=== PATIENT | male | born 1930 | race Caucasian/White ===

== ENCOUNTER 2018-03-05 05:32 | Inpatient (IN) | payer MEDICARE, OTHER ==
[2018-03-05] VITALS (8 sets, daily range): BP systolic 124–166; BP diastolic 76–92
[~2018-03-05] VITALS: Ht 180.3 cm; Wt 110.2 kg
--- NOTE | 2018-03-05 05:59 | Emergency Room Report ---
History of Present Illness General Chief Complaint: Multiple Trauma/Fall Source: Patient Present Illness HPI Patient present from assisted facility with complaints of left-sided hip pain Patient reports that he was ambulating to go to the restroom And fell to the left side Pain is 8 out of 10 localized to the left hip Denies any lapse of consciousness denies any dizziness Denies any chest pain or shortness of breath Patient has weakness to the left leg with increased pain at this time Allergies: Coded Allergies: MORPHINE (Verified Allergy, Unknown, 03/05/18) Uncoded Allergies: PENICILLIN (Allergy, Unknown, 03/05/18) Patient History Past Medical History: see triage record Pertinent Family History: none Reviewed Nursing Documentation: PMH: Agreed; PSxH: Agreed Nursing Documentation-PMH Hx Hypertension: Yes - hyperlipidemia Hx COPD: Yes History Of Psychiatric Problem: Yes - dementia, depression Review of Systems All Other Systems: negative except mentioned in HPI Physical Exam Vital Signs Date Time Temp Pulse Resp B/P (MAP) Pulse Ox O2 Delivery O2 Flow Rate FiO2 03/05/18 05:41 97.5 87 20 153/80 95 Room Air Sp02 EP Interpretation: reviewed, normal General Appearance: mild distress - In pain Head: normocephalic, atraumatic Eyes: bilateral eye PERRL, bilateral eye EOMI ENT: hearing grossly normal, normal pharynx Neck: supple, thyroid normal Respiratory: no retraction, no accessory muscle use, crackles - Both lower lobes Cardiovascular #1: regular rate, rhythm Gastrointestinal: non tender, soft Musculoskeletal: other - Left leg appears short externally rotated, hemodynamically otherwise stable and neurovascularly intact Neurologic: alert, oriented x3, responsive Skin: no rash, warm/dry Medical Decision Making ER Course Patient is complex requiring extensive blood work and imaging Patient is provided pain medication and Case is signed out to my covering physician Last Vital Signs Date Time Temp Pulse Resp B/P (MAP) Pulse Ox O2 Delivery O2 Flow Rate FiO2 03/05/18 05:41 97.5 87 20 153/80 95 Room Air Signed Out To: Oncoming physician 6:20 Scripts Unable to Obtain Active Prescriptions or Reported Meds Pepito Graham DO Mar 05, 2018 05:59
[2018-03-05] MEDS ORDERED: Hydromorphone 0.5mg/0.5ml inj IVP ONE ×2 (06:00→07:30)
[2018-03-05 06:33] LABS: EOSINOPHILS % (AUTO) 1.8 % (0.0-3.0); HEMATOCRIT 43.8 % (42.0-52.0); HEMOGLOBIN 14.4 G/DL (14.2-18.0); LYMPHOCYTES % (AUTO) 21.1 % (20.0-45.0); MEAN CORPUSCULAR VOLUME 89 FL (80-99); MONOCYTES % (AUTO) 9.1 % (1.0-10.0); PLATELET COUNT 203 K/UL (150-450); RED BLOOD COUNT 4.93 M/UL (4.70-6.10); WHITE BLOOD COUNT 9.9 K/UL (4.8-10.8)
[2018-03-05 06:56] LABS: ANION GAP 10 mmol/L (5-15); BLOOD UREA NITROGEN 25 mg/dL (7-18); CARBON DIOXIDE 28 MMOL/L (21-32); CHLORIDE 102 MMOL/L (98-107); CREATININE 1.9 MG/DL (0.55-1.30); POTASSIUM 4.2 MMOL/L (3.5-5.1); SODIUM 140 MMOL/L (136-145)
[2018-03-05 07:12] LABS: ALANINE AMINOTRANSFERASE 13 U/L (12-78); ALBUMIN 3.4 G/DL (3.4-5.0); ALBUMIN/GLOBULIN RATIO 0.7 (1.0-2.7); ALKALINE PHOSPHATASE 144 U/L (46-116); ASPARTATE AMINO TRANSFERASE 19 U/L (15-37); BILIRUBIN,TOTAL 0.5 MG/DL (0.2-1.0); CREATINE KINASE 70 U/L (26-308)
[2018-03-05] MEDS ORDERED: DiphenhydrAMINE 50mg/ml Inj IVP ONE (08:15)
[2018-03-05 08:22] LABS: APPEARANCE,URINE CLEAR; BILIRUBIN, URINE NEGATIVE (NEGATIVE); COLOR,URINE PALE YELLOW; GLUCOSE, URINE (UA) NEGATIVE (NEGATIVE); KETONES,URINE NEGATIVE (NEGATIVE); LEUKOCYTE ESTERASE ,URINE NEGATIVE (NEGATIVE); NITRITE,URINE NEGATIVE (NEGATIVE); PH,URINE 6.5 (4.5-8.0); PROTEIN,URINE 3+ (NEGATIVE); UROBILINOGEN,URINE NORMAL MG/DL (0.0-1.0)
--- NOTE | 2018-03-05 10:04 | Diagnostic Imaging Report ---
Indication: Trauma, hip pain Technique: Noncontrast spiral acquisitions obtained through the pelvis. Multiplanar reconstructions generated. Total dose length product 597.88 mGycm. CTDIvol(s) 16.19 mGy. Dose reduction achieved using automated exposure control Comparison: none Findings: There is an angulated comminuted intertrochanteric fracture of the left hip. No pelvic fracture. No evidence of right hip fracture. There are degenerative changes of the lumbar spine. There is minimal soft tissue contusion superficial to the hip fracture, incompletely included in the [id number]. The included pelvic viscera are unremarkable. The appendix is not visualized. Impression: Positive for comminuted angulated left hip intertrochanteric fracture Other findings as noted This agrees with the preliminary interpretation provided overnight by [facility] teleradiology service. The CT scanner at [facility] is accredited by the [employer] and the scans are performed using protocols designed to limit radiation exposure to as low as reasonably achievable to attain images of sufficient resolution adequate for diagnostic evaluation.
[2018-03-05] MEDS ORDERED: QUETIAPINE FUM300 MG ORAL (10:08)
[2018-03-05] MEDS ORDERED: IBUPROFEN600 MG ORAL (10:08)
[2018-03-05] MEDS ORDERED: FUROSEMIDE20 M1 ORAL (10:08)
[2018-03-05] MEDS ORDERED: CLONIDINE0.1 MG PO (10:08)
[2018-03-05] MEDS ORDERED: TRAMADOL HCL100 M2 ORAL (10:08)
[2018-03-05] MEDS ORDERED: LIPITOR80 MG ORAL (10:08)
[2018-03-05] MEDS ORDERED: POTASSIUM CHLO10 ME2 PO (10:08)
[2018-03-05] MEDS ORDERED: THERA M PLUS T1 EAC2 PO (10:08)
[2018-03-05] MEDS ORDERED: NORVASC10 MG ORAL (10:08)
[2018-03-05] MEDS ORDERED: DONEPEZIL HCL10 M2 ORAL (10:10)
[2018-03-05] MEDS ORDERED: SINEMET 25-1001 EAC1 ORAL (10:10)
[2018-03-05] MEDS ORDERED: GABAPENTIN100 MG ORAL (10:10)
--- NOTE | 2018-03-05 10:54 | Diagnostic Imaging Report ---
Indication: Trauma, pain Technique: One view of the pelvis Comparison: CT scan performed 2 hours earlier Findings: There is a comminuted angulated intertrochanteric fracture of the left hip. No pelvic fracture demonstrated. Bones are osteoporotic. There are vascular calcification Impression: Positive for left hip intertrochanteric fracture This agrees with the preliminary interpretation provided by the emergency room physician
--- NOTE | 2018-03-05 11:15 | Diagnostic Imaging Report ---
Indication: Chest pain Technique: One view of the chest Comparison: None Findings: Body habitus limits evaluation. The heart is enlarged. The aorta is tortuous ectatic and calcified. No definite acute infiltrates, effusions, or congestion. There is mild central bronchial wall thickening Impression: Senescent changes. No definite acute process This agrees with the preliminary interpretation provided by the emergency room physician
[2018-03-05] MEDS ORDERED: traMADol 50mg tab ORAL PRN (13:00)
[2018-03-05] MEDS: Levodopa/Carbidopa 25/100 tab ORAL SCH ×2 (13:14→17:37)
[2018-03-05] MEDS: Norco 5mg/325mg tab ORAL PRN ×2 (13:16→19:48)
--- NOTE | 2018-03-05 15:01 | Cardiology Report ---
APPROVED REPORT EKG Measurement Heart [id number] Normal sinus rhythm Nonspecific ST abnormality Abnormal ECG
--- NOTE | 2018-03-05 15:43 | Anethesia Preoperative Eval ---
Anesthesia Pre-op PMH/ROS General Date of Evaluation: Mar 05, 2018 Time of Evaluation: 15:39 Anesthesiologist: Ann-Marie ASA Score: ASA 3 Mallampati Score Class I : Soft palate, uvula, fauces, pillars visible Class II: Soft palate, uvula, fauces visible Class III: Soft palate, base of uvula visible Class IV: Only hard plate visible Mallampati Classification: Class III Surgeon: Nilay Diagnosis: L hip Fx Surgical Procedure: ORIF of L hip Fx Anesthesia History: none Family History: no anesthesia problems Allergies: Coded Allergies: PENICILLINS (Unverified Allergy, Unknown, 03/05/18) Medications: see eMAR Patient NPO?: Yes NPO Date: Mar 05, 2018 NPO Time: 02:40 Past Medical History Cardiovascular: Reports: HTN; Denies: CAD, [place], valve dz, arrhythmia, other Pulmonary: Denies: asthma, COPD, MONICA, other Gastrointestinal/Genitourinary: Reports: GERD, CRI; Denies: ESRD, other Neurologic/Psychiatric: Reports: dementia - mild, other - Parkinsons; Denies: CVA, depression/anxiety, TIA Endocrine: Denies: DM, hypothyroidism, steroids, other HEENT: Denies: cataract (L), cataract (R), glaucoma, TETLIN (L), TETLIN (R), other Hematology/Immune: Denies: anemia, DVT, bleeding disorder, other Musculoskeletal/Integumentary: Reports: OA; Denies: RA, DJD, DDD, edema, other Other: obesity PMH Narrative: as above PSxH Narrative: see H&P Anesthesia Pre-op Phys. Exam Physician Exam Last Vital Signs Date Time Temp Pulse Resp B/P (MAP) Pulse Ox O2 Delivery O2 Flow Rate FiO2 03/05/18 12:02 Nasal Cannula 2.0 03/05/18 12:00 97.4 91 18 126/86 (99) 91 Constitutional: NAD Neurologic: other - unable to obtaine Cardiovascular: RRR, no M/R/G Respiratory: CTA Gastrointestinal: other - obesity Airway Exam Mallampati Score: Class III MO: limited Neck: stiff ROM: limited Teeth: missing Dentures: no upper, no lower Anesthesia Pre-op A/P Labs Hematology Test 03/05/18 06:15 White Blood Count 9.9 K/UL (4.8-10.8) Red Blood Count 4.93 M/UL (4.70-6.10) Hemoglobin 14.4 G/DL (14.2-18.0) Hematocrit 43.8 % (42.0-52.0) Mean Corpuscular Volume 89 FL (80-99) Mean Corpuscular Hemoglobin 29.2 PG (27.0-31.0) Mean Corpuscular Hemoglobin Concent 33.0 G/DL (32.0-36.0) Red Cell Distribution Width 13.0 % (11.6-14.8) Platelet Count 203 K/UL (150-450) Mean Platelet Volume 7.0 FL (6.5-10.1) Neutrophils (%) (Auto) 67.0 % (45.0-75.0) Lymphocytes (%) (Auto) 21.1 % (20.0-45.0) Monocytes (%) (Auto) 9.1 % (1.0-10.0) Eosinophils (%) (Auto) 1.8 % (0.0-3.0) Basophils (%) (Auto) 1.0 % (0.0-2.0) Coagulation Test 03/05/18 06:15 Prothrombin Time 10.2 SEC (9.30-11.50) Prothromb Time International Ratio 1.0 (0.9-1.1) Activated Partial Thromboplast Time 27 SEC (23-33) Chemistry Test 03/05/18 06:15 Sodium Level 140 MMOL/L (136-145) Potassium Level 4.2 MMOL/L (3.5-5.1) Chloride Level 102 MMOL/L (98-107) Carbon Dioxide Level 28 MMOL/L (21-32) Anion Gap 10 mmol/L (5-15) Blood Urea Nitrogen 25 mg/dL (7-18) H Creatinine 1.9 MG/DL (0.55-1.30) H Estimat Glomerular Filtration Rate mL/min (>60) Glucose Level 146 MG/DL (74-106) H Calcium Level 9.0 MG/DL (8.5-10.1) Total Bilirubin 0.5 MG/DL (0.2-1.0) Aspartate Amino Transf (AST/SGOT) 19 U/L (15-37) Alanine Aminotransferase (ALT/SGPT) 13 U/L (12-78) Alkaline Phosphatase 144 U/L (46-116) H Total Creatine Kinase 70 U/L (26-308) Creatine Kinase MB 1.0 NG/ML (0.0-3.6) Creatine Kinase MB Relative Index 1.4 Troponin I 0.000 ng/mL (0.000-0.056) Total Protein 8.3 G/DL (6.4-8.2) H Albumin 3.4 G/DL (3.4-5.0) Globulin 4.9 g/dL Albumin/Globulin Ratio 0.7 (1.0-2.7) L Risk Assessment & Plan Assessment: ASA 3 Plan: GA vs SAB Pre-Antibiotics Drug: as scheduled Luiz Jacobsen MD Mar 05, 2018 15:43
--- NOTE | 2018-03-05 16:44 | Cardiac Electrophysiology PN ---
Subjective Subjective [id number] Objective Last 24 Hour Vital Signs Date Time Temp Pulse Resp B/P (MAP) Pulse Ox O2 Delivery O2 Flow Rate FiO2 03/05/18 15:48 97.2 85 20 158/90 (112) 94 03/05/18 12:02 Nasal Cannula 2.0 03/05/18 12:00 97.4 91 18 126/86 (99) 91 03/05/18 10:38 97.4 91 18 126/86 (99) 91 03/05/18 10:22 68 16 124/76 97 Nasal Cannula 2.0 03/05/18 10:22 97.5 87 13 124/65 97 Nasal Cannula 2.0 03/05/18 07:15 78 13 149/83 95 Room Air 03/05/18 05:56 86 20 Room Air 03/05/18 05:41 97.5 87 20 153/80 95 Room Air Laboratory Tests Test 03/05/18 06:15 03/05/18 07:00 White Blood Count 9.9 K/UL (4.8-10.8) Red Blood Count 4.93 M/UL (4.70-6.10) Hemoglobin 14.4 G/DL (14.2-18.0) Hematocrit 43.8 % (42.0-52.0) Mean Corpuscular Volume 89 FL (80-99) Mean Corpuscular Hemoglobin 29.2 PG (27.0-31.0) Mean Corpuscular Hemoglobin Concent 33.0 G/DL (32.0-36.0) Red Cell Distribution Width 13.0 % (11.6-14.8) Platelet Count 203 K/UL (150-450) Mean Platelet Volume 7.0 FL (6.5-10.1) Neutrophils (%) (Auto) 67.0 % (45.0-75.0) Lymphocytes (%) (Auto) 21.1 % (20.0-45.0) Monocytes (%) (Auto) 9.1 % (1.0-10.0) Eosinophils (%) (Auto) 1.8 % (0.0-3.0) Basophils (%) (Auto) 1.0 % (0.0-2.0) Prothrombin Time 10.2 SEC (9.30-11.50) Prothromb Time International Ratio 1.0 (0.9-1.1) Activated Partial Thromboplast Time 27 SEC (23-33) Sodium Level 140 MMOL/L (136-145) Potassium Level 4.2 MMOL/L (3.5-5.1) Chloride Level 102 MMOL/L (98-107) Carbon Dioxide Level 28 MMOL/L (21-32) Anion Gap 10 mmol/L (5-15) Blood Urea Nitrogen 25 mg/dL (7-18) H Creatinine 1.9 MG/DL (0.55-1.30) H Estimat Glomerular Filtration Rate mL/min (>60) Glucose Level 146 MG/DL (74-106) H Calcium Level 9.0 MG/DL (8.5-10.1) Total Bilirubin 0.5 MG/DL (0.2-1.0) Aspartate Amino Transf (AST/SGOT) 19 U/L (15-37) Alanine Aminotransferase (ALT/SGPT) 13 U/L (12-78) Alkaline Phosphatase 144 U/L (46-116) H Total Creatine Kinase 70 U/L (26-308) Creatine Kinase MB 1.0 NG/ML (0.0-3.6) Creatine Kinase MB Relative Index 1.4 Troponin I 0.000 ng/mL (0.000-0.056) Total Protein 8.3 G/DL (6.4-8.2) H Albumin 3.4 G/DL (3.4-5.0) Globulin 4.9 g/dL Albumin/Globulin Ratio 0.7 (1.0-2.7) L Urine Color Pale yellow Urine Appearance Clear Urine pH 6.5 (4.5-8.0) Urine Specific [place] 1.010 (1.005-1.035) Urine Protein 3+ (NEGATIVE) H Urine Glucose (UA) Negative (NEGATIVE) Urine Ketones Negative (NEGATIVE) Urine Blood Negative (NEGATIVE) Urine Nitrite Negative (NEGATIVE) Urine Bilirubin Negative (NEGATIVE) Urine Urobilinogen Normal MG/DL (0.0-1.0) Urine Leukocyte Esterase Negative (NEGATIVE) Urine RBC 0 /HPF (0 - 0) Urine WBC 0-2 /HPF (0 - 0) Urine Squamous Epithelial Cells Occasional /LPF Urine Bacteria Occasional /HPF (NONE) Gary Bay MD Mar 05, 2018 16:43
--- NOTE | 2018-03-05 17:02 | General Progress Note ---
Subjective Date patient seen: Mar 05, 2018 Time patient seen: 16:00 Allergies: Coded Allergies: PENICILLINS (Unverified Allergy, Unknown, 03/05/18) Subjective Full H&P dictated. Objective Last 24 Hour Vital Signs Date Time Temp Pulse Resp B/P (MAP) Pulse Ox O2 Delivery O2 Flow Rate FiO2 03/05/18 15:48 97.2 85 20 158/90 (112) 94 03/05/18 12:02 Nasal Cannula 2.0 03/05/18 12:00 97.4 91 18 126/86 (99) 91 03/05/18 10:38 97.4 91 18 126/86 (99) 91 03/05/18 10:22 68 16 124/76 97 Nasal Cannula 2.0 03/05/18 10:22 97.5 87 13 124/65 97 Nasal Cannula 2.0 03/05/18 07:15 78 13 149/83 95 Room Air 03/05/18 05:56 86 20 Room Air 03/05/18 05:41 97.5 87 20 153/80 95 Room Air Laboratory Tests 03/05/18 06:15: White Blood Count 9.9, Red Blood Count 4.93, Hemoglobin 14.4, Hematocrit 43.8, Mean Corpuscular Volume 89, Mean Corpuscular Hemoglobin 29.2, Mean Corpuscular Hemoglobin Concent 33.0, Red Cell Distribution Width 13.0, Platelet Count 203, Mean Platelet Volume 7.0, Neutrophils (%) (Auto) 67.0, Lymphocytes (%) (Auto) 21.1, Monocytes (%) (Auto) 9.1, Eosinophils (%) (Auto) 1.8, Basophils (%) (Auto ) 1.0, Prothrombin Time 10.2, Prothromb Time International Ratio 1.0, Activated Partial Thromboplast Time 27, Sodium Level 140, Potassium Level 4.2, Chloride Level 102, Carbon Dioxide Level 28, Anion Gap 10, Blood Urea Nitrogen 25H, Creatinine 1.9H, Estimat Glomerular Filtration Rate , Glucose Level 146H, Calcium Level 9.0, Total Bilirubin 0.5, Aspartate Amino Transf (AST/SGOT) 19, Alanine Aminotransferase (ALT/SGPT) 13, Alkaline Phosphatase 144H, Total Creatine Kinase 70, Creatine Kinase MB 1.0, Creatine Kinase MB Relative Index 1.4, Troponin I 0.000, Total Protein 8.3H, Albumin 3.4, Globulin 4.9, Albumin/ Globulin Ratio 0.7L 03/05/18 07:00: Urine Color Pale yellow, Urine Appearance Clear, Urine pH 6.5, Urine Specific [place] 1.010, Urine Protein 3+H, Urine Glucose (UA) Negative, Urine Ketones Negative, Urine Blood Negative, Urine Nitrite Negative, Urine Bilirubin Negative , Urine Urobilinogen Normal, Urine Leukocyte Esterase Negative, Urine RBC 0, Urine WBC 0-2, Urine Squamous Epithelial Cells Occasional, Urine Bacteria Occasional Height (Feet): 5 Height (Inches): 10.00 Weight (Pounds): 230 Shelby Arrington MD Mar 05, 2018 17:02
--- NOTE | 2018-03-05 17:07 | Diagnostic Imaging Report ---
Indication: Chest pain Technique: One view of the chest Comparison: 9 hours earlier Findings: The heart is upper limits normal in size. Minimal atelectasis is seen at the left lung base. The lungs and pleural spaces are otherwise clear except for some chronic senescent interstitial prominence. The aorta is tortuous ectatic and calcified. No significant interim change Impression: No definite acute process. Findings as noted
[2018-03-05] MEDS: Donepezil 10mg tab ORAL SCH (20:04)
[2018-03-05] MEDS: Atorvastatin 20mg tab ORAL SCH (20:05)
[2018-03-05] MEDS: Heparin 5000 units/ml inj SUBQ SCH (20:06)
--- NOTE | 2018-03-05 21:16 | History and Physical Report ---
DATE OF ADMISSION: 03/05/2018 CHIEF COMPLAINT: Left hip pain, status post fall. HISTORY OF PRESENT ILLNESS: This is an 87-year-old male who was brought in for complaint of left hip pain, status post fall from assisted living, [facility]. The patient complained of pain, 8/10 on his left hip and he is slightly confused due to his dementia. The patient denies any shortness of breath. No chest pain. No dizziness or loss of consciousness. PAST MEDICAL HISTORY: History of dementia, edema of the legs, COPD, depression, hyperlipidemia, Parkinson disease, hypertension, and also history of previous pneumonia. 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 ALLERGIES: History of allergy to morphine and penicillin. SOCIAL HISTORY: Quit smoking 70 years ago. No alcohol. No IV drug use. MEDICATIONS: Please look at the medication list. REVIEW OF SYSTEMS: Negative except for HPI. PHYSICAL EXAMINATION: VITAL SIGNS: Temperature 97.5, pulse 87, respirations 20, blood pressure 153/80, and pulse oximetry is 95% on room air. GENERAL APPEARANCE: Alert, but slightly confused. HEENT: Normocephalic and normochromic. Extraocular muscles intact. Throat is clear. NECK: Supple. No lymphadenopathy. LUNGS: Clear to auscultation bilaterally. No wheezing. No crackles. CARDIOVASCULAR: Regular rate and rhythm. No murmur. No gallop. ABDOMEN: Soft, nontender, and nondistended. Positive bowel sounds. EXTREMITIES: +2 pedal edema. No cyanosis or clubbing. NEUROLOGIC: Alert and oriented x2, respond to commands. SKIN: No rash. LABORATORY AND DIAGNOSTIC DATA: Sodium 140, potassium 4.2, chloride 102, bicarbonate 28, BUN 25, creatinine 1.9, glucose 146, and calcium 9. AST 19, ALT 13, and alkaline phosphatase 144. Total protein 8.3, albumin 3.4, and total creatine kinase is 70. WBC 9.0, hemoglobin 14.4, hematocrit 43.8, and platelet count 203,000. PT 10.2, INR 1, and PTT 27. UA +3 protein, otherwise negative. Troponin was 0. Chest x-ray, no acute changes. Hip and pelvic x-rays showed positive for left hip intertrochanteric fracture. Pelvic CT also showed comminuted and angulated left hip intertrochanteric fracture. EKG shows normal sinus rhythm with nonspecific ST changes. IMPRESSION: 1. Left hip intertrochanteric fracture, status post mechanical fall. The patient will be admitted for surgery tomorrow. We will have a Cardiology consulted for cardiac clearance. We will have echo done today as well. 2. Hypertension. Continue home medications to control the blood pressure. 3. Hyperlipidemia. We will continue the same home medications as well. 4. Dementia. We will continue Aricept 10 mg, he already is taking at home. 5. Depression. We will continue venlafaxine 75 mg daily. 6. Low extremity edema. We will change his Lasix to 20 mg p.o. to 40 mg IV push today. 7. Parkinson disease. We will continue the patient on Sinemet that he was taking 25/100 one, three times a day. The patient will be admitted for minimum of two-night stay for diagnosis of hip fracture and I will follow the patient and the patient will be discharged to rehabilitation center following the hospitalization. Shelby Arrington M.D. DR: NOEL JOB#: [id number] CC: CINDY
--- NOTE | 2018-03-05 21:46 | Consultation ---
DATE OF CONSULTATION: 03/05/2018 CARDIOLOGY CONSULTATION CONSULTING PHYSICIAN: Gary Bay M.D. REFERRING PHYSICIAN: Shelby Arrington M.D. REASON FOR CONSULTATION: Preoperative clearance prior to hip surgery. HISTORY OF PRESENT ILLNESS: The patient is an 87-year-old gentleman who lives in assisted living facility, was brought in for left-sided hip pain after a fall. The patient apparently was ambulating to go to restroom when he fell on the left side. The patient did not lose consciousness. The pain was 8/10, localized to the left hip. The patient was then admitted and a Cardiology consultation is obtained for preoperative clearance. REVIEW OF SYSTEMS: Negative other than what was mentioned in history of present illness. PAST MEDICAL HISTORY: 1. Hypertension. 2. Hyperlipidemia. 3. COPD. 4. Dementia. 5. Depression. FAMILY HISTORY: Noncontributory. SOCIAL HISTORY: He lives in assisted living. Does not smoke or drink alcohol. PHYSICAL EXAMINATION: VITAL SIGNS: Blood pressure 110/70, pulse 70, respirations 18, and he is afebrile. HEAD AND NECK: No JVD or carotid bruits. LUNGS: Clear. CARDIOVASCULAR: Regular S1 and S2 with no gallop or murmur. ABDOMEN: Soft and nontender. EXTREMITIES: 1+ pitting edema. LABORATORY AND DIAGNOSTIC STUDIES: His labs show white count 9.9, hemoglobin 14.5, hematocrit 42.8, and platelet count 203,000. Sodium is 140, potassium 4.2, BUN 25, and creatinine 1.9. Glucose 146. Troponin is negative. ASSESSMENT AND PLAN: 1. An 87-year-old gentleman with left hip fracture for replacement hip surgery. The patient denies any prior myocardial infarction or coronary artery disease. EKG showed no acute ischemic changes. We will get an echocardiogram and if the echo does not surprise us with the critical valve problem or cardiomyopathy the patient will be cleared to undergo left hip surgery. 2. Hypertension. The patient is on Norvasc 10 mg daily, that may be contributing to the patient's severe bilateral lower extremity edema. I will discontinue Norvasc and increase the Lasix to 40 mg IV daily and start the patient on hydralazine 25 mg b.i.d. Avoid NAPOLEON inhibitor and angiotensin receptive blockers in view of the patient's renal failure. 3. Renal failure. Creatinine is 1.9. Increase dose of Lasix. Avoid NAPOLEON inhibitors and angiotensin receptive blockers. 4. Hyperlipidemia, on Lipitor. 5. Dementia, on Aricept. Thank you very much, Dr. Arrington, for allowing me to participate in the care of this patient. Please do not hesitate to contact for any questions regarding my evaluation. Gary Bay M.D. DR: EDSON JOB#: [id number] CC:
[2018-03-06] VITALS (12 sets, daily range): BP systolic 112–152; BP diastolic 72–87
[2018-03-06] MEDS: Norco 5mg/325mg tab ORAL PRN ×3 (02:11→23:16)
[2018-03-06 07:00] LABS: BASOPHILS % (AUTO) 0.7 % (0.0-2.0); EOSINOPHILS % (AUTO) 0.5 % (0.0-3.0); HEMATOCRIT 37.4 % (42.0-52.0); HEMOGLOBIN 12.1 G/DL (14.2-18.0); LYMPHOCYTES % (AUTO) 13.6 % (20.0-45.0); MEAN CORPUSCULAR VOLUME 88 FL (80-99); MONOCYTES % (AUTO) 12.7 % (1.0-10.0); NEUTROPHILS % (AUTO) 72.5 % (45.0-75.0); PLATELET COUNT 165 K/UL (150-450); RED BLOOD COUNT 4.25 M/UL (4.70-6.10); WHITE BLOOD COUNT 10.6 K/UL (4.8-10.8)
[2018-03-06 07:22] LABS: ANION GAP 9 mmol/L (5-15); CARBON DIOXIDE 29 MMOL/L (21-32); CHLORIDE 101 MMOL/L (98-107); POTASSIUM 4.8 MMOL/L (3.5-5.1); SODIUM 139 MMOL/L (136-145)
[2018-03-06 07:43] LABS: BLOOD UREA NITROGEN 36 mg/dL (7-18); CALCIUM 8.8 MG/DL (8.5-10.1); CREATININE 2.5 MG/DL (0.55-1.30)
[2018-03-06] MEDS: D5 1/2NS w/KCl 20mEq 1,000 ML IV SCH ×2 (08:04→22:39)
[2018-03-06] MEDS: Levodopa/Carbidopa 25/100 tab ORAL SCH ×3 (08:56→18:00)
[2018-03-06] MEDS: Heparin 5000 units/ml inj SUBQ SCH ×2 (09:00→20:55)
--- NOTE | 2018-03-06 12:52 | Pre-Procedure Note/Attestation ---
Pre-Procedure Note/Attestation Complete Prior to Procedure Planned Procedure: left Procedure Narrative: Left hip nailing Indications for Procedure Pre-Operative Diagnosis: Left hip intertrochanteric fracture Attestation I attest that I discussed the nature of the procedure; its benefits; risks and complications; and alternatives (and the risks and benefits of such alternatives ), prior to the procedure, with the patient (or the patient's legal medical detail representative). I attest that, if there was a reasonable possibility of needing a blood transfusion, the patient (or the patient's legal medical detail representative) was given the [facility] standardized written summary, pursuant to the Tanner Giacomo Blood Safety Act ([place] Health and Safety Code # 1645, as amended). I attest that I re-evaluated the patient just prior to the surgery and that there has been no change in the patient's H&P, except as documented below: Richie Pemberton MD Mar 06, 2018 12:52
--- NOTE | 2018-03-06 13:52 | Cardiac Electrophysiology PN ---
Assessment/Plan Assessment/Plan 1. Left hip fracture for replacement hip surgery. The patient denies any prior myocardial infarction or coronary artery disease. EKG showed no acute ischemic changes. Echocardiogram showedd Nl EF. Patient is cleared to undergo left hip surgery. 2. Hypertension. The patient is on Norvasc 10 mg daily, that may be contributing to the patient's severe bilateral lower extremity edema. On Lasix 40 mg IV daily and start the patient on hydralazine 25 mg b.i.d. Avoid NAPOLEON inhibitor and angiotensin receptive blockers in view of the patient's renal failure. 3. Renal failure. Creatinine is increased to 2.5. Avoid NAPOLEON inhibitors and angiotensin receptive blockers. 4. Hyperlipidemia, on Lipitor. 5. Dementia, on Aricept. Subjective Subjective No CP or SOB. Echo Nl EF. NPO for hip surgery today Objective Last 24 Hour Vital Signs Date Time Temp Pulse Resp B/P (MAP) Pulse Ox O2 Delivery O2 Flow Rate FiO2 03/06/18 12:00 97.2 67 16 133/75 (94) 99 03/06/18 09:00 Nasal Cannula 2.0 03/06/18 08:56 87 147/87 03/06/18 08:00 97.5 87 17 147/87 (107) 96 03/06/18 04:00 97.7 81 17 143/85 (104) 94 03/06/18 00:00 97.2 81 18 140/72 (94) 97 03/05/18 21:42 166/92 03/05/18 21:00 Nasal Cannula 2.0 03/05/18 20:00 97.5 74 19 166/92 (116) 96 03/05/18 15:48 97.2 85 20 158/90 (112) 94 Intake and Output 03/05/18 03/06/18 18:59 06:59 Intake Total 240 ml 480 ml Output Total 200 ml Balance 40 ml 480 ml Intake Oral 240 ml 480 ml Output Urine Total 200 ml # Voids 3 # Bowel Movements 1 Laboratory Tests Test 03/06/18 05:25 White Blood Count 10.6 K/UL (4.8-10.8) Red Blood Count 4.25 M/UL (4.70-6.10) L Hemoglobin 12.1 G/DL (14.2-18.0) L Hematocrit 37.4 % (42.0-52.0) L Mean Corpuscular Volume 88 FL (80-99) Mean Corpuscular Hemoglobin 28.5 PG (27.0-31.0) Mean Corpuscular Hemoglobin Concent 32.4 G/DL (32.0-36.0) Red Cell Distribution Width 13.0 % (11.6-14.8) Platelet Count 165 K/UL (150-450) Mean Platelet Volume 7.2 FL (6.5-10.1) Neutrophils (%) (Auto) 72.5 % (45.0-75.0) Lymphocytes (%) (Auto) 13.6 % (20.0-45.0) L Monocytes (%) (Auto) 12.7 % (1.0-10.0) H Eosinophils (%) (Auto) 0.5 % (0.0-3.0) Basophils (%) (Auto) 0.7 % (0.0-2.0) Sodium Level 139 MMOL/L (136-145) Potassium Level 4.8 MMOL/L (3.5-5.1) Chloride Level 101 MMOL/L (98-107) Carbon Dioxide Level 29 MMOL/L (21-32) Anion Gap 9 mmol/L (5-15) Blood Urea Nitrogen 36 mg/dL (7-18) H Creatinine 2.5 MG/DL (0.55-1.30) H Estimat Glomerular Filtration Rate mL/min (>60) Glucose Level 119 MG/DL (74-106) H Calcium Level 8.8 MG/DL (8.5-10.1) Objective HEAD AND NECK: No JVD or carotid bruits. LUNGS: Clear. CARDIOVASCULAR: Regular S1 and S2 with no gallop or murmur. ABDOMEN: Soft and nontender. EXTREMITIES: 1+ pitting edema. Gary Bay MD Mar 06, 2018 13:52
--- NOTE | 2018-03-06 16:32 | General Progress Note ---
Assessment/Plan Status: stable Assessment/Plan 1. Lt hip intertrochanteric fracture, status post mechanical fall - awaiting surgery today. cardiology clearance was done. 2. Hypertension - controlled with hydralazine. off amlodipine due to leg swelling. 3. Hyperlipidemia - cont lipitor 20 mg one po qhs. 4. Dementia - cont Aricept 10 mg po qhs. 5. Depression - start effexor 75 mg 1/2 po daily. 6. Low extremity edema - D/c lasix due to elevated creatinine. D/C amlodipine due to leg edema. 7. Parkinson disease. Cont Sinemet 25/100 one po tid. Subjective Date patient seen: Mar 06, 2018 Time patient seen: 03:45 Constitutional: Reports: weakness HEENT: Reports: no symptoms Cardiovascular: Reports: no symptoms Respiratory: Reports: no symptoms Gastrointestinal/Abdominal: Reports: no symptoms Genitourinary: Reports: no symptoms Neurologic/Psychiatric: Reports: no symptoms Endocrine: Reports: no symptoms Hematologic/Lymphatic: Reports: no symptoms Allergies: Coded Allergies: PENICILLINS (Verified Allergy, Unknown, 03/05/18) Subjective Today, he is going for hip surgery around 5:30 PM. no sob or chest pain. no nausea or vomiting. afebrile. Objective Last 24 Hour Vital Signs Date Time Temp Pulse Resp B/P (MAP) Pulse Ox O2 Delivery O2 Flow Rate FiO2 03/06/18 16:00 97.1 75 16 131/80 (97) 98 03/06/18 12:00 97.2 67 16 133/75 (94) 99 03/06/18 09:00 Nasal Cannula 2.0 03/06/18 08:56 87 147/87 03/06/18 08:00 97.5 87 17 147/87 (107) 96 03/06/18 04:00 97.7 81 17 143/85 (104) 94 03/06/18 00:00 97.2 81 18 140/72 (94) 97 03/05/18 21:42 166/92 03/05/18 21:00 Nasal Cannula 2.0 03/05/18 20:00 97.5 74 19 166/92 (116) 96 Intake and Output 03/05/18 03/06/18 18:59 06:59 Intake Total 240 ml 480 ml Output Total 200 ml Balance 40 ml 480 ml Intake Oral 240 ml 480 ml Output Urine Total 200 ml # Voids 3 # Bowel Movements 1 Laboratory Tests 03/06/18 05:25: White Blood Count 10.6, Red Blood Count 4.25L, Hemoglobin 12.1L, Hematocrit 37.4L, Mean Corpuscular Volume 88, Mean Corpuscular Hemoglobin 28.5, Mean Corpuscular Hemoglobin Concent 32.4, Red Cell Distribution Width 13.0, Platelet Count 165, Mean Platelet Volume 7.2, Neutrophils (%) (Auto) 72.5, Lymphocytes (% ) (Auto) 13.6L, Monocytes (%) (Auto) 12.7H, Eosinophils (%) (Auto) 0.5, Basophils (%) (Auto) 0.7, Sodium Level 139, Potassium Level 4.8, Chloride Level 101, Carbon Dioxide Level 29, Anion Gap 9, Blood Urea Nitrogen 36H, Creatinine 2.5H, Estimat Glomerular Filtration Rate , Glucose Level 119H, Calcium Level 8.8 Height (Feet): 5 Height (Inches): 11.00 Weight (Pounds): 230 General Appearance: no apparent distress, alert Neck: non-tender, supple Cardiovascular: normal rate, regular rhythm Respiratory/Chest: chest wall non-tender, lungs clear, normal breath sounds Abdomen: normal bowel sounds, non tender, soft Extremities: normal range of motion, non-tender Edema: 1+ Leg (L), 1+ Leg (R) Neurologic: alert, responsive Skin: warm/dry Lymphatic: normal anterior cervical (L), normal anterior cervical (R), normal posterior cervical (L), normal posterior cervical (R), normal submandibular (L) , normal submandibular (R), normal supraclavicular (L), normal supraclavicular ( R), normal axillary (L), normal axillary (R), normal inguinal (L), normal inguinal (R), normal other Shelyb Arrington MD Mar 06, 2018 16:32
--- NOTE | 2018-03-06 16:53 | Cardiology Report ---
APPROVED REPORT EXAM: Two-dimensional and M-mode echocardiogram with Doppler and color Doppler. INDICATION Preop M-Mode DIMENSIONS IVSd1.5 (0.7-1.1cm)Left Atrium (MM)3.1 (1.6-4.0cm) LVDd4.2 (3.5-5.6cm)Aortic Root3.4 (2.0-3.7cm) PWd1.7 (0.7-1.1cm)Aortic Cusp Exc.1.2 (1.5-2.0cm) LVDs3.0 (2.5-4.0cm) PWs2.2 cm Technically difficult study due to poor acoustical windows and pt's body habitus. Normal left ventricular chamber size, systolic function to extent visualized. Left ventricular ejection fraction estimated to be grossly normal. Study quality precludes accurate assessment of regional wall motion. Mild left ventricular hypertrophy. No evidence of pericardial effusion. All other cardiac chamber sizes are within normal limits. Aortic valve calcification with decreased cusp excursion c/w aortic stenosis. Thickened mitral valve leaflets with normal excursion. Mitral annulus and aortic root calcification. Pulmonic valve not well visualized. Normal tricuspid valve structure. IVC at normal size with physiologic collapse. A color flow and spectral Doppler study was performed and revealed: Peak aortic valve gradient of 35 mm Hg and a mean of 21 mmHg. Aortic valve area 1.3 cm2 calculated by continuity equation. Trace mitral regurgitation. Mitral diastolic velocities suggest reduced left ventricular relaxation c/w mild LV diastolic dysfunction (Grade I). Trace tricuspid regurgitation. Tricuspid systolic velocities suggests peak right ventricular systolic pressure of 23 mmHg.
[2018-03-06] MEDS ORDERED: Bacitracin 50000 Units Vial ONE (17:20)
[2018-03-06] MEDS ORDERED: Bupivacaine w/Epi 0.25% 30ml Vial INJ ONE (17:20)
[2018-03-06] MEDS ORDERED: Bupivacaine 0.5% Inj 30 ml vial INJ ONE ×2 (17:20→17:41)
[2018-03-06] MEDS ORDERED: LR 1000ml 1,000 ML IVLG SCH (17:36)
[2018-03-06] MEDS ORDERED: cloNIDine 1000mcg/10ml inj ONE (17:41)
[2018-03-06] MEDS ORDERED: Alfentanil 2ml Inj ONE (17:44)
[2018-03-06] MEDS ORDERED: Lidocaine 1% Plain 30 ml INJ ONE (17:44)
[2018-03-06] MEDS ORDERED: EPINEPHrine 1mg/1ml Amp ONE (17:44)
[2018-03-06] MEDS ORDERED: Norco 5mg/325mg tab ORAL PRN (17:45)
[2018-03-06] MEDS ORDERED: Atropine Sulfate 0.4mg/ml inj IVP PRN (17:45)
[2018-03-06] MEDS ORDERED: Midazolam 2mg/2ml Inj IVP PRN (17:45)
[2018-03-06] MEDS ORDERED: fentaNYL 100 mcg/2 mL IV PRN (17:45)
[2018-03-06] MEDS ORDERED: HYDROcodone/Acetamin 7.5/325 tab ORAL PRN (17:45)
[2018-03-06] MEDS ORDERED: LORazepam Inj 2mg/ml 1ml IV PRN (17:45)
[2018-03-06] MEDS ORDERED: DiphenhydrAMINE 50mg/ml Inj IVP PRN (17:45)
[2018-03-06] MEDS ORDERED: oxyCODONE HCL/Acetaminophen 5/325mg ORAL PRN (17:45)
[2018-03-06] MEDS ORDERED: Hydromorphone 0.5mg/0.5ml inj IVP PRN (17:45)
--- NOTE | 2018-03-06 17:45 | Immediate Post-Op Evaluation ---
Immediate Post-Op Evalulation Immediate Post-Op Evalulation Procedure: ORIF L Hip Date of Evaluation: Mar 06, 2018 Time of Evaluation: 19:54 IV Fluids: 500 LR Blood Products: 0 Estimated Blood Loss: 75 Urinary Output: 0 Blood Pressure Systolic: 141 Blood Pressure Diastolic: 78 Pulse Rate: 84 Respiratory Rate: 16 O2 Sat by Pulse Oximetry: 99 Temperature (Fahrenheit): 98.5 Pain Score (1-10): 1 Nausea: No Vomiting: No Complications 0 Patient Status: awake, reacts, patent, none Hydration Status: adequate Dru Gram Ancef IV Given Within 1 Hr of Incision: Yes Time Given: 18:31 Abelardo Real MD Mar 06, 2018 17:45
[2018-03-06] MEDS ORDERED: Sodium Chloride 10ml vial INJ ONE (17:59)
[2018-03-06] MEDS ORDERED: Propofol 200mg/20ml IV ONE (18:00)
[2018-03-06] MEDS ORDERED: LR 1000ml ONE (18:00)
[2018-03-06] MEDS ORDERED: Sterile Water Irrig 1000ml IRRIG ONE (18:00)
[2018-03-06] MEDS: HydrALAZINE 50mg tab ORAL SCH (18:00)
[2018-03-06] MEDS ORDERED: NS Irrig 1000ml ONE (18:00)
[2018-03-06] MEDS ORDERED: ePHEDrine 50mg/ml Inj ONE (18:47)
--- NOTE | 2018-03-06 19:44 | Brief Operative Note ---
Immediate Post Operative Note Operative Note Pre-op Diagnosis: Left hip intertrochanteric fracture Procedure: Left hip nailing Post-op Diagnosis: Left hip IT fracture Post-op Diagnosis: same as pre-op Findings: consistent w/pre-op dx studies Surgeon: Nilay Additional Surgeons: Addie Anesthesia: general, regional, moderate sedation Specimen: none Complications: none Condition: stable Fluids: 100 ml Estimated Blood Loss: minimal Drains: none Implant(s) used?: Yes Richie Pemberton MD Mar 06, 2018 19:44
[2018-03-06] MEDS: Donepezil 10mg tab ORAL SCH (20:55)
[2018-03-06] MEDS: Atorvastatin 20mg tab ORAL SCH (20:56)
--- NOTE | 2018-03-06 21:45 | Operative Note - Dictated ---
DATE OF OPERATION: 03/06/2018 SURGEON: Richie Pemberton M.D. SLIP PRESSER: None. ANESTHESIA: Sedation plus regional. COMPLICATIONS: None. ANTIBIOTICS: Ancef. PREOPERATIVE DIAGNOSIS: Left hip intertrochanteric displaced 3 part fracture. POSTOPERATIVE DIAGNOSIS: Left hip intertrochanteric displaced 3 part fracture. PROCEDURE PERFORMED: Left hip short nailing using a Gamma Witten short nail 125-degree neck with a compressed and locked 100 mm proximal hip screw and a 40 mm distal interlocking static screw. BACKGROUND: The patient slipped and fell. He sustained an intertrochanteric hip fracture. All risks, benefits, and alternatives to surgical intervention were discussed in great detail. Risks included, but were not limited to, bleeding, infection, neurovascular injury, need for additional surgical intervention, failure of pain relief, arthrofibrosis, complications of anesthesia, blood clots, stroke, heart attack, and potentially . He understood these risks, amongst others, and consent was signed. PROCEDURE IN DETAIL: The patient was brought in to the operating room, placed supine on the operating table. All bony prominences were appropriately padded on the fracture table and the left hip correctly verified for surgical site. He was prepped and draped in standard sterile fashion. Fluoroscopic imaging confirmed appropriate reduction with reductive maneuvers and distraction at the hip. An incision was created proximal to the femur and in line with the femur. The greater trochanteric tip starting point was identified using fluoroscopic imaging. It was then over drilled and the real implant secured into position. With AP and lateral fluoroscopic imaging, a center/center hip pin was then secured into position measuring 100 mm. This was compressed and locked into position with the cord internal locking to allow some compression with weightbearing. Distal 4 cm static interlocking screw was then secured after neutral rotation of the foot. The wounds were copiously irrigated and reapproximated using #0 Vicryl, 2-0 Vicryl, and 3-0 Monocryl for skin. Steri-Strips were used over Mastisol. Dry sterile dressing was applied. He tolerated the procedure well. There were no complications. I attest I performed the entire operation. He was transferred to recovery in good condition. Richie Pemberton M.D. DR: BRANDY JOB#: [id number] CC:
--- NOTE | 2018-03-06 22:00 | Consultation ---
DATE OF CONSULTATION: 03/06/2018 ORTHOPEDIC CONSULTATION CONSULTING PHYSICIAN: Richie Pemberton [place]. [place] [place] REQUESTING PHYSICIAN: Shelby Arrington M.D. DIAGNOSIS: Left intertrochanteric hip fracture. HISTORY OF PRESENT ILLNESS: The patient is an 87-year-old gentleman who lives in [facility] and he is a permanent resident there and he slipped and fell. He often uses either a walker, wheelchair, or motorized wheelchair because of Parkinson's and dementia. His sister Jerica from whom much of the history was obtained. Once slipped and fell, he was not able to walk and radiographs confirmed a displaced intertrochanteric hip fracture. PAST MEDICAL HISTORY: Significant for hyperlipidemia, hypertension, COPD, Parkinson's, and depression. PHYSICAL EXAMINATION: GENERAL: He is in moderate distress, respond to any stimulus in the left lower extremity. Gross neurovascular examination is intact, although a detailed examination because of some issues with communication could not be obtained. RADIOGRAPHS: AP pelvis, left hip reveal a displaced intertrochanteric 3-part fracture. The patient sustained a left hip fracture. I have recommended left hip nailing. All risks, benefits, were reviewed. I also reviewed all risks and benefits with the sister, Jerica. We will proceed to the operating room straight away. Thank you for the opportunity to consult. Richie Pemberton M.D. DR: Kalia JOB#: [id number] CC:
[2018-03-07] VITALS (8 sets, daily range): BP systolic 93–139; BP diastolic 68–85
[2018-03-07 07:38] LABS: BASOPHILS % (AUTO) 0.5 % (0.0-2.0); EOSINOPHILS % (AUTO) 0.2 % (0.0-3.0); HEMATOCRIT 35.3 % (42.0-52.0); HEMOGLOBIN 11.9 G/DL (14.2-18.0); LYMPHOCYTES % (AUTO) 9.4 % (20.0-45.0); MEAN CORPUSCULAR VOLUME 88 FL (80-99); MONOCYTES % (AUTO) 11.6 % (1.0-10.0); NEUTROPHILS % (AUTO) 78.3 % (45.0-75.0); PLATELET COUNT 146 K/UL (150-450); RED BLOOD COUNT 4.01 M/UL (4.70-6.10); RED CELL DISTRIBUTION WIDTH 12.2 % (11.6-14.8); WHITE BLOOD COUNT 9.9 K/UL (4.8-10.8)
[2018-03-07 07:49] LABS: ANION GAP 7 mmol/L (5-15); BLOOD UREA NITROGEN 31 mg/dL (7-18); CALCIUM 8.8 MG/DL (8.5-10.1); CARBON DIOXIDE 29 MMOL/L (21-32); CHLORIDE 103 MMOL/L (98-107); CREATININE 2.1 MG/DL (0.55-1.30); POTASSIUM 4.1 MMOL/L (3.5-5.1); SODIUM 139 MMOL/L (136-145)
[2018-03-07] MEDS ORDERED: Venlafaxine XR 37.5mg cap ORAL SCH (09:00)
[2018-03-07] MEDS ORDERED: Venlafaxine HCl 37.5mg Tab ORAL ONE (09:00)
[2018-03-07] MEDS: HydrALAZINE 50mg tab ORAL SCH ×2 (09:36→18:34)
[2018-03-07] MEDS: Levodopa/Carbidopa 25/100 tab ORAL SCH ×3 (09:47→18:34)
[2018-03-07] MEDS: Heparin 5000 units/ml inj SUBQ SCH ×2 (09:50→21:00)
--- NOTE | 2018-03-07 11:35 | 48 Hour Post Anesthesia Eval ---
Post Anesthesia Evaluation Procedure: ORIF L Hip Date of Evaluation: Mar 07, 2018 Time of Evaluation: 11:34 Blood Pressure Systolic: 136 0: 71 Pulse Rate: 68 Respiratory Rate: 20 Temperature (Fahrenheit): 97.6 O2 Sat by Pulse Oximetry: 98 Airway: patent Nausea: No Vomiting: No Pain Intensity: 2 Hydration Status: adequate Cardiopulmonary Status: stable Mental Status/LOC: patient returned to baseline Follow-up Care/Observations: n/a Post-Anesthesia Complications: none Follow-up care needed: N/A Luiz Jacobsen MD Mar 07, 2018 11:35
--- NOTE | 2018-03-07 11:41 | Consultation ---
Consult Note Assessment/Plan Renal consult dictated # [id number] Boy Fernandez MD Mar 07, 2018 11:41
--- NOTE | 2018-03-07 11:50 | Consultation ---
Consult Note Assessment/Plan Renal consult dictated # [id number] Boy Fernandez MD Mar 07, 2018 11:50
[2018-03-07] MEDS ORDERED: D5 1/2NS 1,000 ML IV SCH (12:00)
[2018-03-07] MEDS: Norco 5mg/325mg tab ORAL PRN ×2 (12:37→21:13)
--- NOTE | 2018-03-07 16:07 | General Progress Note ---
Assessment/Plan Status: stable Assessment/Plan 1. Lt hip intertrochanteric fracture, status post mechanical fall - Post op day one. he is doing well. D/c planning for sunday to [facility] per family member request. 2. Hypertension - controlled with hydralazine. 3. Hyperlipidemia - cont lipitor 20 mg one po qhs. 4. Dementia - cont Aricept 10 mg po qhs. 5. Depression - cont effexor 75 mg 1/2 po daily. 6. Low extremity edema - improved. 7. Parkinson disease. Cont Sinemet 25/100 one po tid. 8. Acute on chronic renal failure - improved with IV fluid and when lasix and amlodipine was stopped. Subjective Date patient seen: Mar 07, 2018 Time patient seen: 03:40 Constitutional: Reports: weakness HEENT: Reports: no symptoms Cardiovascular: Reports: no symptoms Respiratory: Reports: no symptoms Gastrointestinal/Abdominal: Reports: no symptoms Genitourinary: Reports: no symptoms Neurologic/Psychiatric: Reports: weakness Endocrine: Reports: no symptoms Hematologic/Lymphatic: Reports: no symptoms Allergies: Coded Allergies: PENICILLINS (Verified Allergy, Unknown, 03/05/18) Subjective He is s/p Lt hip ORIF that was done yesterday. afebrile. no sob or chest pain. His diet has advanced to regular diet. no sob or chest pain. no nausea or vomiting. Objective Last 24 Hour Vital Signs Date Time Temp Pulse Resp B/P (MAP) Pulse Ox O2 Delivery O2 Flow Rate FiO2 03/07/18 12:00 98.2 84 18 110/71 (84) 99 03/07/18 11:35 68 20 98 03/07/18 09:36 138/83 03/07/18 09:00 Nasal Cannula 3.0 03/07/18 08:00 97.3 88 18 138/83 (101) 97 03/07/18 07:00 99.9 91 19 139/85 (103) 98 03/07/18 04:00 97.8 95 17 118/68 (85) 98 03/07/18 00:00 97.5 97 18 129/77 (94) 98 03/06/18 21:00 Nasal Cannula 3.0 03/06/18 20:45 98.5 93 16 112/79 (90) 99 03/06/18 20:33 98.4 84 16 150/80 98 Nasal Cannula 3 03/06/18 20:18 84 16 152/83 99 Nasal Cannula 3 03/06/18 20:00 88 16 146/85 99 Simple Mask 8 03/06/18 19:53 84 16 134/83 99 Simple Mask 8 03/06/18 19:48 85 16 132/86 99 Simple Mask 8 03/06/18 19:43 98.5 84 16 141/78 99 Simple Mask 8 03/06/18 19:40 84 16 99 03/06/18 16:00 97.1 75 16 131/80 (97) 98 Intake and Output 03/06/18 03/07/18 19:00 07:00 Intake Total 770 ml Output Total 375 ml Balance 395 ml IV Total 770 ml Output Urine Total 300 ml Estimated Blood Loss 75 ml Laboratory Tests 03/07/18 06:50: White Blood Count 9.9, Red Blood Count 4.01L, Hemoglobin 11.9L, Hematocrit 35.3L , Mean Corpuscular Volume 88, Mean Corpuscular Hemoglobin 29.6, Mean Corpuscular Hemoglobin Concent 33.6, Red Cell Distribution Width 12.2, Platelet Count 146L, Mean Platelet Volume 7.0, Neutrophils (%) (Auto) 78.3H, Lymphocytes (%) (Auto) 9.4L, Monocytes (%) (Auto) 11.6H, Eosinophils (%) (Auto) 0.2, Basophils (%) (Auto) 0.5, Sodium Level 139, Potassium Level 4.1, Chloride Level 103, Carbon Dioxide Level 29, Anion Gap 7, Blood Urea Nitrogen 31H, Creatinine 2.1H, Estimat Glomerular Filtration Rate , Glucose Level 181H, Calcium Level 8.8 Height (Feet): 5 Height (Inches): 11.00 Weight (Pounds): 230 General Appearance: no apparent distress, lethargic Neck: non-tender, supple Cardiovascular: normal rate, regular rhythm Respiratory/Chest: chest wall non-tender, lungs clear, normal breath sounds Abdomen: normal bowel sounds, non tender, soft Extremities: non-tender Edema: 1+ Leg (L), 1+ Leg (R) Neurologic: responsive Skin: warm/dry Lymphatic: normal anterior cervical (L), normal anterior cervical (R), normal posterior cervical (L), normal posterior cervical (R), normal submandibular (L) , normal submandibular (R), normal supraclavicular (L), normal supraclavicular ( R), normal axillary (L), normal axillary (R), normal inguinal (L), normal inguinal (R), normal other Shelby Arrington MD Mar 07, 2018 16:07
--- NOTE | 2018-03-07 16:15 | Diagnostic Imaging Report ---
Indication: Acute renal failure Technique: Grayscale and duplex images of the kidneys, retroperitoneum, and bladder were obtained. Comparison: none Findings: Exam is limited due to patient being unable to cooperate optimally and due to inability related to recent hip surgery. Right kidney measures 9 cm in length. Left kidney measures 13.2 cm in length. Both kidneys demonstrate normal echogenicity. No hydronephrosis. There are bilateral renal cysts. Normal inferior vena cava. Bladder is normal. Impression: Negative for hydronephrosis Bilateral renal cysts incidentally noted.
--- NOTE | 2018-03-07 16:36 | Cardiac Electrophysiology PN ---
Assessment/Plan Assessment/Plan 1. Left hip fracture. S/P replacement hip surgery. No prior myocardial infarction or coronary artery disease. EKG showed no acute ischemic changes. Echocardiogram showed Nl EF. 2. Hypertension. On Norvasc 10 mg daily and hydralazine 50 mg b.i.d. Avoid NAPOLEON inhibitor and angiotensin receptive blockers in view of the patient's renal failure. 3. Renal failure. Creatinine is decreased to 2.1. Avoid Lasix, NAPOLEON inhibitors and angiotensin receptive blockers. 4. Hyperlipidemia, on Lipitor. 5. Dementia, on Aricept. Subjective Subjective No CP or SOB. Echo Nl EF. Tolerated surgery well. Objective Last 24 Hour Vital Signs Date Time Temp Pulse Resp B/P (MAP) Pulse Ox O2 Delivery O2 Flow Rate FiO2 03/07/18 12:00 98.2 84 18 110/71 (84) 99 03/07/18 11:35 68 20 98 03/07/18 09:36 138/83 03/07/18 09:00 Nasal Cannula 3.0 03/07/18 08:00 97.3 88 18 138/83 (101) 97 03/07/18 07:00 99.9 91 19 139/85 (103) 98 03/07/18 04:00 97.8 95 17 118/68 (85) 98 03/07/18 00:00 97.5 97 18 129/77 (94) 98 03/06/18 21:00 Nasal Cannula 3.0 03/06/18 20:45 98.5 93 16 112/79 (90) 99 03/06/18 20:33 98.4 84 16 150/80 98 Nasal Cannula 3 03/06/18 20:18 84 16 152/83 99 Nasal Cannula 3 03/06/18 20:00 88 16 146/85 99 Simple Mask 8 03/06/18 19:53 84 16 134/83 99 Simple Mask 8 03/06/18 19:48 85 16 132/86 99 Simple Mask 8 03/06/18 19:43 98.5 84 16 141/78 99 Simple Mask 8 03/06/18 19:40 84 16 99 Intake and Output 03/06/18 03/07/18 19:00 07:00 Intake Total 770 ml Output Total 375 ml Balance 395 ml IV Total 770 ml Output Urine Total 300 ml Estimated Blood Loss 75 ml Laboratory Tests Test 03/07/18 06:50 White Blood Count 9.9 K/UL (4.8-10.8) Red Blood Count 4.01 M/UL (4.70-6.10) L Hemoglobin 11.9 G/DL (14.2-18.0) L Hematocrit 35.3 % (42.0-52.0) L Mean Corpuscular Volume 88 FL (80-99) Mean Corpuscular Hemoglobin 29.6 PG (27.0-31.0) Mean Corpuscular Hemoglobin Concent 33.6 G/DL (32.0-36.0) Red Cell Distribution Width 12.2 % (11.6-14.8) Platelet Count 146 K/UL (150-450) L Mean Platelet Volume 7.0 FL (6.5-10.1) Neutrophils (%) (Auto) 78.3 % (45.0-75.0) H Lymphocytes (%) (Auto) 9.4 % (20.0-45.0) L Monocytes (%) (Auto) 11.6 % (1.0-10.0) H Eosinophils (%) (Auto) 0.2 % (0.0-3.0) Basophils (%) (Auto) 0.5 % (0.0-2.0) Sodium Level 139 MMOL/L (136-145) Potassium Level 4.1 MMOL/L (3.5-5.1) Chloride Level 103 MMOL/L (98-107) Carbon Dioxide Level 29 MMOL/L (21-32) Anion Gap 7 mmol/L (5-15) Blood Urea Nitrogen 31 mg/dL (7-18) H Creatinine 2.1 MG/DL (0.55-1.30) H Estimat Glomerular Filtration Rate mL/min (>60) Glucose Level 181 MG/DL (74-106) H Calcium Level 8.8 MG/DL (8.5-10.1) Microbiology Date/Time Source Procedure Growth Status 03/05/18 08:30 Nasal Nares MRSA Culture - Final NO METHICILLIN RESISTANT STAPH AUREUS... Complete Objective HEAD AND NECK: No JVD or carotid bruits. LUNGS: Clear. CARDIOVASCULAR: Regular S1 and S2 with no gallop or murmur. ABDOMEN: Soft and nontender. EXTREMITIES: 1+ pitting edema. S/P hip surgery. Gary Bay MD Mar 07, 2018 16:36
--- NOTE | 2018-03-07 19:15 | Consultation ---
DATE OF CONSULTATION: 03/07/2018 NEPHROLOGY CONSULTATION: CONSULTING PHYSICIAN: Boy Fernandez M.D. REFERRING PHYSICIAN: Shelby Arrington M.D. REASON FOR CONSULTATION: Renal failure. HISTORY OF PRESENT ILLNESS: This is an 87-year-old white [facility] The patient was brought in for left hip pain and was diagnosed with left hip intertrochanteric fracture. The patient just had a surgery yesterday. I was asked to see him for his renal failure. His BUN and creatinine were 25 and 1.9 respectively on 03/05/2018 on admission. On 03/06/2018, the BUN was 36 and creatinine 2.5. The patient was on Lasix 20 mg daily, which was discontinued. The patient is getting IV fluid D5 half-normal saline with 20 mEq KCl at 75 mL an hour. At this point, his BUN and creatinine are 31 and 2.1 respectively. The patient is unable to provide any history. He has underlying dementia. History was obtained from the chart. Also, I talked to the sister, who is at bedside. PAST MEDICAL HISTORY: Includes of leg edema for which he was on diuretics, history of dementia, Parkinson, COPD, depression, hypertension, and previous history of pneumonia. PAST SURGICAL HISTORY: History of removal of acoustic tumor, history of prostate surgery, appendectomy, and fusion of cervical spine. SOCIAL HISTORY: Remote history of smoking. No history of alcohol abuse. ALLERGIES: Reported to morphine and penicillin. REVIEW OF SYSTEMS: Unobtainable. PHYSICAL EXAMINATION: GENERAL: The patient is an elderly male, in no acute distress. VITAL SIGNS: Blood pressure 138/83, pulse 88, respiratory rate 18, and temperature 97.3. HEENT: Somewhat pale conjunctivae. Anicteric sclerae. NECK: Supple. LUNGS: Clear to auscultation. HEART: S1-S2 without murmurs or rubs. ABDOMEN: Soft and nontender. EXTREMITIES: Bilateral pedal edema. LABORATORY FINDINGS: The chemistry panel as of today shows serum sodium 139, potassium 4.1, chloride 103, CO2 29, BUN is 31, and creatinine 2.1. CBC shows a WBC of 9900, hematocrit 35.3, hemoglobin 11.9, and platelets 146,000. UA shows 3+ protein. ASSESSMENT: This is an 87-year-old white male, who is status post fall and left intertrochanteric fracture. The patient had surgery yesterday. I was asked to see him for his renal failure. He had definite acute renal failure, which has improved with IV fluid administration. So very likely, the patient had prerenal azotemia. On the other hand, he has also proteinuria, which shows some evidence of chronic kidney disease. It is unclear what the etiology is. It can be from hypertension and atherosclerotic kidney disease. Other causes such as obstruction less likely, but needs to be ruled out. PLAN: 1. I agree with continuation of IV fluid; however, I would change it to D5 half-normal saline with no KCl because of his renal failure. 2. A kidney ultrasound will be ordered to make sure the patient has no obstruction and also look at the echogenicity of the kidneys. 3. Vitamin D level as well as a PTH level will be ordered to make sure the patient has no vitamin D deficiency and secondary hyperthyroidism. 4. Chemistry panel will be followed and further recommendations will be given based on the above results. Thank you very much, Dr. Arrington, for this consultation. Boy Fernandez M.D. DR: RICHI JOB#: [id number] CC:
[2018-03-07] MEDS: Donepezil 10mg tab ORAL SCH (21:13)
[2018-03-07] MEDS: Atorvastatin 20mg tab ORAL SCH (21:13)
[2018-03-08] VITALS (42 sets, daily range): BP systolic 91–133; BP diastolic 51–92
[2018-03-08] MEDS: D5 1/2NS 1,000 ML IV SCH ×2 (00:55→14:27)
[2018-03-08] MEDS ORDERED: Norco 5mg/325mg tab ORAL PRN (01:00)
[2018-03-08] MEDS ORDERED: traMADol 50mg tab ORAL PRN (05:00)
[2018-03-08 05:25] LABS: BASOPHILS % (AUTO) 0.7 % (0.0-2.0); EOSINOPHILS % (AUTO) 1.7 % (0.0-3.0); HEMATOCRIT 34.2 % (42.0-52.0); HEMOGLOBIN 11.6 G/DL (14.2-18.0); MEAN CORPUSCULAR VOLUME 88 FL (80-99); MONOCYTES % (AUTO) 12.1 % (1.0-10.0); NEUTROPHILS % (AUTO) 73.5 % (45.0-75.0); PLATELET COUNT 137 K/UL (150-450); RED CELL DISTRIBUTION WIDTH 12.8 % (11.6-14.8); WHITE BLOOD COUNT 11.6 K/UL (4.8-10.8)
[2018-03-08 05:43] LABS: ANION GAP 6 mmol/L (5-15); BLOOD UREA NITROGEN 32 mg/dL (7-18); CALCIUM 8.5 MG/DL (8.5-10.1); CARBON DIOXIDE 28 MMOL/L (21-32); CHLORIDE 102 MMOL/L (98-107); CREATININE 2.2 MG/DL (0.55-1.30); SODIUM 136 MMOL/L (136-145)
[2018-03-08] MEDS: Levodopa/Carbidopa 25/100 tab ORAL SCH ×3 (08:19→17:48)
--- NOTE | 2018-03-08 08:52 | General Progress Note ---
Assessment/Plan Status: stable Assessment/Plan 1. New onset A. fib - On diltiazem drip per cardiology. stable. 2. Lt hip intertrochanteric fracture, status post mechanical fall - Post op day two. 3. Hypertension - controlled with hydralazine. 4. Hyperlipidemia - cont lipitor 20 mg one po qhs. 5. Dementia - cont Aricept 10 mg po qhs. 6. Depression - cont effexor 75 mg 1/2 po daily. 7. Low extremity edema - improved. 8. Parkinson disease. Cont Sinemet 25/100 one po tid. 9. Acute on chronic renal failure - awaiting bmp result for today. Subjective Date patient seen: Mar 08, 2018 Time patient seen: 08:35 Constitutional: Reports: weakness HEENT: Reports: no symptoms Cardiovascular: Reports: irregular heart rate Respiratory: Reports: no symptoms Gastrointestinal/Abdominal: Reports: no symptoms Genitourinary: Reports: no symptoms Neurologic/Psychiatric: Reports: no symptoms Endocrine: Reports: no symptoms Hematologic/Lymphatic: Reports: no symptoms Allergies: Coded Allergies: PENICILLINS (Verified Allergy, Unknown, 03/05/18) Subjective He is s/p Lt hip surgery. Last night, he had A fib with tachycardia in 140-150' s. He was transferred to ICU for Diltiazem drip per Cardiology last night. This morning, his HR is better and in 100-110 range. afebrile. no sob or chest pain. no nausea or vomiting. Objective Last 24 Hour Vital Signs Date Time Temp Pulse Resp B/P (MAP) Pulse Ox O2 Delivery O2 Flow Rate FiO2 03/08/18 08:19 113/82 03/08/18 07:30 98.6 93 14 111/71 (84) 100 03/08/18 07:00 104 20 105/56 (72) 99 03/08/18 06:30 101 16 110/79 (89) 98 03/08/18 06:00 112 14 101/69 (80) 98 03/08/18 05:30 108 16 107/79 (88) 97 03/08/18 05:00 115 14 101/74 (83) 96 03/08/18 04:30 111 14 108/62 (77) 97 03/08/18 04:00 Nasal Cannula 2.0 03/08/18 04:00 98.9 106 14 99/70 (80) 97 03/08/18 03:30 109 17 105/73 (84) 97 03/08/18 03:00 110 17 105/68 (80) 95 03/08/18 02:30 107 17 100/65 (77) 96 03/08/18 02:09 99.1 03/08/18 02:00 121 14 96/71 (79) 96 03/08/18 01:30 121 14 114/91 (99) 96 03/08/18 01:00 109 21 92/59 (70) 96 03/08/18 00:58 131 99/79 03/08/18 00:30 129 18 104/69 (81) 96 03/08/18 00:15 Nasal Cannula 2.0 03/08/18 00:00 99.1 133 18 99/79 (86) 99 03/07/18 23:30 144 20 93/68 (76) 96 03/07/18 21:00 Nasal Cannula 3.0 03/07/18 20:00 96.3 117 20 114/75 (88) 99 03/07/18 18:34 139/79 03/07/18 16:00 98.6 90 18 139/79 (99) 96 03/07/18 12:00 98.2 84 18 110/71 (84) 99 03/07/18 11:35 68 20 98 03/07/18 09:36 138/83 03/07/18 09:00 Nasal Cannula 3.0 Intake and Output 03/07/18 03/08/18 19:00 07:00 Intake Total 480 ml 520 ml Output Total 30 ml Balance 480 ml 490 ml Intake Oral 480 ml IV Total 520 ml Output Urine Total 30 ml # Voids 3 2 Laboratory Tests 03/08/18 05:15: White Blood Count 11.6H, Red Blood Count 3.90L, Hemoglobin 11.6L, Hematocrit 34.2L, Mean Corpuscular Volume 88, Mean Corpuscular Hemoglobin 29.6, Mean Corpuscular Hemoglobin Concent 33.8, Red Cell Distribution Width 12.8, Platelet Count 137L, Mean Platelet Volume 7.1, Neutrophils (%) (Auto) 73.5, Lymphocytes ( %) (Auto) 12.0L, Monocytes (%) (Auto) 12.1H, Eosinophils (%) (Auto) 1.7, Basophils (%) (Auto) 0.7, Sodium Level 136, Potassium Level 4.0, Chloride Level 102, Carbon Dioxide Level 28, Anion Gap 6, Blood Urea Nitrogen 32H, Creatinine 2.2H, Estimat Glomerular Filtration Rate , Glucose Level 157H, Calcium Level 8.5 , Calcium (Send out) [Pending], Vitamin D 25-Hydroxy [Pending], 25-Hydroxy Vitamin D2 [Pending], 25-Hydroxy Vitamin D3 [Pending], Parathyroid Hormone ( Intact) [Pending] Height (Feet): 5 Height (Inches): 11.00 Weight (Pounds): 230 General Appearance: alert EENT: normal ENT inspection Neck: non-tender, normal alignment, supple Cardiovascular: regularly irregular Respiratory/Chest: chest wall non-tender, lungs clear, normal breath sounds Abdomen: normal bowel sounds, non tender, soft Extremities: non-tender Edema: 1+ Leg (L), 1+ Leg (R) Neurologic: alert, responsive Skin: warm/dry Lymphatic: normal anterior cervical (L), normal anterior cervical (R), normal posterior cervical (L), normal posterior cervical (R), normal submandibular (L) , normal submandibular (R), normal supraclavicular (L), normal supraclavicular ( R), normal axillary (L), normal axillary (R), normal inguinal (L), normal inguinal (R), normal other Shelby Arrington MD Mar 08, 2018 08:52
[2018-03-08] MEDS ORDERED: HydrALAZINE 50mg tab ORAL SCH ×2 (09:00→21:00)
[2018-03-08] MEDS: Venlafaxine XR 37.5mg cap ORAL SCH (09:24)
--- NOTE | 2018-03-08 11:05 | Diagnostic Imaging Report ---
Indication: Shortness of breath Technique: One view of the chest Comparison: 03/05/2018 Findings: The lungs and pleural spaces are clear. The heart size is upper limits of normal. The aorta is tortuous ectatic and calcified. Upper mediastinum is unremarkable. No significant interim change Impression: No acute process
--- NOTE | 2018-03-08 13:12 | Cardiac Electrophysiology PN ---
Assessment/Plan Assessment/Plan 1. Atrial fib with RVR. Change Cardizem drip to Cardizem 90 po q 6hr. Anticoagulation when OK with surgery 2. Hypertension. DC Norvasc and hydralazine. Avoid NAPOLEON inhibitor and angiotensin receptive blockers in view of the patient's renal failure. Add Cardizem po 3. Renal failure. Creatinine is decreased to 2.1. Avoid Lasix, NAPOLEON inhibitors and angiotensin receptive blockers. 4. Left hip fracture. S/P replacement hip surgery. No prior myocardial infarction or coronary artery disease. EKG showed no acute ischemic changes. Echocardiogram showed Nl EF. 5. Dementia, on Aricept. 6. Hyperlipidemia, on Lipitor. Subjective Subjective Transferred to ICU for atrial fib with RVR. On Cardizem drip 10 mg/hr. Echo Nl EF. Objective Last 24 Hour Vital Signs Date Time Temp Pulse Resp B/P (MAP) Pulse Ox O2 Delivery O2 Flow Rate FiO2 03/08/18 11:30 93 16 133/51 (78) 99 03/08/18 11:00 91 16 106/63 (77) 98 03/08/18 10:30 89 17 109/64 (79) 98 03/08/18 10:00 94 19 92/64 (73) 98 03/08/18 09:30 97 20 104/65 (78) 98 03/08/18 09:24 95 103/73 03/08/18 09:00 99 21 103/73 (83) 98 03/08/18 08:30 97 20 114/70 (85) 99 03/08/18 08:19 113/82 03/08/18 08:00 Nasal Cannula 2.0 03/08/18 08:00 96 15 113/82 (92) 98 03/08/18 07:30 98.6 93 14 111/71 (84) 100 03/08/18 07:00 104 20 105/56 (72) 99 03/08/18 06:30 101 16 110/79 (89) 98 03/08/18 06:00 112 14 101/69 (80) 98 03/08/18 05:30 108 16 107/79 (88) 97 03/08/18 05:00 115 14 101/74 (83) 96 03/08/18 04:30 111 14 108/62 (77) 97 03/08/18 04:00 Nasal Cannula 2.0 03/08/18 04:00 98.9 106 14 99/70 (80) 97 03/08/18 03:30 109 17 105/73 (84) 97 03/08/18 03:00 110 17 105/68 (80) 95 03/08/18 02:30 107 17 100/65 (77) 96 03/08/18 02:09 99.1 03/08/18 02:00 121 14 96/71 (79) 96 03/08/18 01:30 121 14 114/91 (99) 96 03/08/18 01:00 109 21 92/59 (70) 96 03/08/18 00:58 131 99/79 03/08/18 00:30 129 18 104/69 (81) 96 03/08/18 00:15 Nasal Cannula 2.0 03/08/18 00:00 99.1 133 18 99/79 (86) 99 03/07/18 23:30 144 20 93/68 (76) 96 03/07/18 21:00 Nasal Cannula 3.0 03/07/18 20:00 96.3 117 20 114/75 (88) 99 03/07/18 18:34 139/79 03/07/18 16:00 98.6 90 18 139/79 (99) 96 Intake and Output 03/07/18 03/08/18 19:00 07:00 Intake Total 480 ml 520 ml Output Total 30 ml Balance 480 ml 490 ml Intake Oral 480 ml IV Total 520 ml Output Urine Total 30 ml # Voids 3 2 Laboratory Tests Test 03/08/18 05:15 White Blood Count 11.6 K/UL (4.8-10.8) H Red Blood Count 3.90 M/UL (4.70-6.10) L Hemoglobin 11.6 G/DL (14.2-18.0) L Hematocrit 34.2 % (42.0-52.0) L Mean Corpuscular Volume 88 FL (80-99) Mean Corpuscular Hemoglobin 29.6 PG (27.0-31.0) Mean Corpuscular Hemoglobin Concent 33.8 G/DL (32.0-36.0) Red Cell Distribution Width 12.8 % (11.6-14.8) Platelet Count 137 K/UL (150-450) L Mean Platelet Volume 7.1 FL (6.5-10.1) Neutrophils (%) (Auto) 73.5 % (45.0-75.0) Lymphocytes (%) (Auto) 12.0 % (20.0-45.0) L Monocytes (%) (Auto) 12.1 % (1.0-10.0) H Eosinophils (%) (Auto) 1.7 % (0.0-3.0) Basophils (%) (Auto) 0.7 % (0.0-2.0) Sodium Level 136 MMOL/L (136-145) Potassium Level 4.0 MMOL/L (3.5-5.1) Chloride Level 102 MMOL/L (98-107) Carbon Dioxide Level 28 MMOL/L (21-32) Anion Gap 6 mmol/L (5-15) Blood Urea Nitrogen 32 mg/dL (7-18) H Creatinine 2.2 MG/DL (0.55-1.30) H Estimat Glomerular Filtration Rate mL/min (>60) Glucose Level 157 MG/DL (74-106) H Calcium Level 8.5 MG/DL (8.5-10.1) Calcium (Send out) Pending Vitamin D 25-Hydroxy Pending 25-Hydroxy Vitamin D2 Pending 25-Hydroxy Vitamin D3 Pending Parathyroid Hormone (Intact) Pending Objective HEAD AND NECK: No JVD or carotid bruits. LUNGS: Clear. CARDIOVASCULAR: Irreegular S1 and S2 with no gallop or murmur. ABDOMEN: Soft and nontender. EXTREMITIES: 1+ pitting edema. S/P hip surgery. Gary Bay MD Mar 08, 2018 13:12
--- NOTE | 2018-03-08 14:13 | Infectious Diseases Prog Note ---
Assessment/Plan Problems: (1) Leukocytosis Assessment & Plan: rule out post OP infection, will order UA, and blood culture , CXR today was negative for any infiltrates , monitor off antibiotics for now (2) Trochanteric fracture of left femur Assessment & Plan: S/P ORIF, POD2 , continue pain management and pt/ot as per ortho (3) STUART (acute kidney injury) Assessment & Plan: suspect dehydration VS ATN , continue hydration, avoid nephrotoxics, monitor renal function (4) Left hip pain Assessment & Plan: due to the above, continue pain management as needed Subjective Allergies: Coded Allergies: PENICILLINS (Verified Allergy, Unknown, 03/05/18) Objective Vital Signs Last 24 Hour Vital Signs Date Time Temp Pulse Resp B/P (MAP) Pulse Ox O2 Delivery O2 Flow Rate FiO2 03/08/18 12:00 Nasal Cannula 2.0 03/08/18 11:30 93 16 133/51 (78) 99 03/08/18 11:00 91 16 106/63 (77) 98 03/08/18 10:30 89 17 109/64 (79) 98 03/08/18 10:00 94 19 92/64 (73) 98 03/08/18 09:30 97 20 104/65 (78) 98 03/08/18 09:24 95 103/73 03/08/18 09:00 99 21 103/73 (83) 98 03/08/18 08:30 97 20 114/70 (85) 99 03/08/18 08:19 113/82 03/08/18 08:00 Nasal Cannula 2.0 03/08/18 08:00 96 15 113/82 (92) 98 03/08/18 07:30 98.6 93 14 111/71 (84) 100 03/08/18 07:00 104 20 105/56 (72) 99 03/08/18 06:30 101 16 110/79 (89) 98 03/08/18 06:00 112 14 101/69 (80) 98 03/08/18 05:30 108 16 107/79 (88) 97 03/08/18 05:00 115 14 101/74 (83) 96 03/08/18 04:30 111 14 108/62 (77) 97 03/08/18 04:00 Nasal Cannula 2.0 03/08/18 04:00 98.9 106 14 99/70 (80) 97 03/08/18 03:30 109 17 105/73 (84) 97 03/08/18 03:00 110 17 105/68 (80) 95 03/08/18 02:30 107 17 100/65 (77) 96 03/08/18 02:09 99.1 03/08/18 02:00 121 14 96/71 (79) 96 03/08/18 01:30 121 14 114/91 (99) 96 03/08/18 01:00 109 21 92/59 (70) 96 03/08/18 00:58 131 99/79 03/08/18 00:30 129 18 104/69 (81) 96 03/08/18 00:15 Nasal Cannula 2.0 03/08/18 00:00 99.1 133 18 99/79 (86) 99 03/07/18 23:30 144 20 93/68 (76) 96 03/07/18 21:00 Nasal Cannula 3.0 03/07/18 20:00 96.3 117 20 114/75 (88) 99 03/07/18 18:34 139/79 03/07/18 16:00 98.6 90 18 139/79 (99) 96 Height (Feet): 5 Height (Inches): 11.00 Weight (Pounds): 230 Laboratory Tests Test 03/08/18 05:15 White Blood Count 11.6 K/UL (4.8-10.8) H Red Blood Count 3.90 M/UL (4.70-6.10) L Hemoglobin 11.6 G/DL (14.2-18.0) L Hematocrit 34.2 % (42.0-52.0) L Mean Corpuscular Volume 88 FL (80-99) Mean Corpuscular Hemoglobin 29.6 PG (27.0-31.0) Mean Corpuscular Hemoglobin Concent 33.8 G/DL (32.0-36.0) Red Cell Distribution Width 12.8 % (11.6-14.8) Platelet Count 137 K/UL (150-450) L Mean Platelet Volume 7.1 FL (6.5-10.1) Neutrophils (%) (Auto) 73.5 % (45.0-75.0) Lymphocytes (%) (Auto) 12.0 % (20.0-45.0) L Monocytes (%) (Auto) 12.1 % (1.0-10.0) H Eosinophils (%) (Auto) 1.7 % (0.0-3.0) Basophils (%) (Auto) 0.7 % (0.0-2.0) Sodium Level 136 MMOL/L (136-145) Potassium Level 4.0 MMOL/L (3.5-5.1) Chloride Level 102 MMOL/L (98-107) Carbon Dioxide Level 28 MMOL/L (21-32) Anion Gap 6 mmol/L (5-15) Blood Urea Nitrogen 32 mg/dL (7-18) H Creatinine 2.2 MG/DL (0.55-1.30) H Estimat Glomerular Filtration Rate mL/min (>60) Glucose Level 157 MG/DL (74-106) H Calcium Level 8.5 MG/DL (8.5-10.1) Calcium (Send out) Pending Vitamin D 25-Hydroxy Pending 25-Hydroxy Vitamin D2 Pending 25-Hydroxy Vitamin D3 Pending Parathyroid Hormone (Intact) Pending Current Medications Medications (Trade) Dose Ordered Sig/Colin Route PRN Reason Start Time Stop Time Status Last Admin Dose Admin Acetaminophen (Tylenol) 650 mg Q6H PRN ORAL Mild Pain/Temp > 100.5 03/08/18 05:30 04/04/18 11:29 Acetaminophen/ Hydrocodone Bitart ([place] 5/325) 1 tab Q6H PRN ORAL Severe Pain (Pain Scale 7-10) 03/08/18 01:00 03/12/18 12:59 03/08/18 01:39 Atorvastatin Calcium (Lipitor) 20 mg BEDTIME ORAL 03/08/18 21:00 04/04/18 20:59 Carbidopa/Levodopa (Sinemet 25/100) 1 tab THREE TIMES A DAY ORAL 03/08/18 09:00 04/04/18 12:59 03/08/18 13:06 Clonidine HCl (Catapres Tab) 0.1 mg Q8H PRN ORAL FOR SBP GREATER THAN 160 03/08/18 03:30 04/04/18 11:29 Dextrose/Sodium Chloride 1,000 ml @ 75 mls/hr [id number] IV 03/08/18 00:15 04/06/18 11:59 03/08/18 00:55 Diltiazem HCl (Cardizem) 90 mg EVERY 6 HOURS ORAL 03/08/18 18:00 04/07/18 17:59 Diltiazem HCl 125 mg/Dextrose 125 ml @ 10 mls/hr Q24H IV 03/09/18 00:00 03/09/18 23:59 03/08/18 09:24 Donepezil HCl (Aricept) 10 mg QHS ORAL 03/08/18 21:00 04/04/18 20:59 Gabapentin (Neurontin) 100 mg DAILY ORAL 03/08/18 09:00 04/05/18 08:59 03/08/18 08:26 Heparin Sodium (Porcine) (Heparin 5000 units/ml) 5,000 units EVERY 12 HOURS SUBQ 03/08/18 14:00 04/04/18 13:59 Quetiapine Fumarate (SEROquel) 25 mg DAILY ORAL 03/08/18 09:00 04/05/18 08:59 03/08/18 08:19 Tramadol HCl (Ultram) 50 mg Q8H PRN ORAL Moderate Pain (Pain Scale 4-6) 03/08/18 05:00 03/12/18 12:59 Venlafaxine HCl (Effexor-XR) 37.5 mg DAILY ORAL 03/08/18 09:00 04/06/18 08:59 03/08/18 09:24 Srini Sam M.D. Mar 08, 2018 14:13
[2018-03-08] MEDS: Heparin 5000 units/ml inj SUBQ SCH ×2 (14:29→21:16)
--- NOTE | 2018-03-08 14:29 | Nephrology Progress Note ---
Assessment/Plan Problem List: (1) CKD (chronic kidney disease) (2) STUART (acute kidney injury) Assessment: no change (3) Trochanteric fracture of left femur (4) Afib Plan Cardizem drip IVF follow BMP Check PTH and Vit D Discussed with RN Subjective Subjective all noted In ICU for Afib Objective Objective Last 24 Hour Vital Signs Date Time Temp Pulse Resp B/P (MAP) Pulse Ox O2 Delivery O2 Flow Rate FiO2 03/08/18 14:00 92 21 113/79 (90) 91 03/08/18 13:30 91 19 111/70 (84) 98 03/08/18 13:00 90 16 117/56 (76) 98 03/08/18 12:30 91 21 112/69 (83) 98 03/08/18 12:00 Nasal Cannula 2.0 03/08/18 12:00 99.2 91 21 107/63 (78) 98 03/08/18 11:30 93 16 133/51 (78) 99 03/08/18 11:00 91 16 106/63 (77) 98 03/08/18 10:30 89 17 109/64 (79) 98 03/08/18 10:00 94 19 92/64 (73) 98 03/08/18 09:30 97 20 104/65 (78) 98 03/08/18 09:24 95 103/73 03/08/18 09:00 99 21 103/73 (83) 98 03/08/18 08:30 97 20 114/70 (85) 99 03/08/18 08:19 113/82 03/08/18 08:00 Nasal Cannula 2.0 03/08/18 08:00 96 15 113/82 (92) 98 03/08/18 07:30 98.6 93 14 111/71 (84) 100 03/08/18 07:00 104 20 105/56 (72) 99 03/08/18 06:30 101 16 110/79 (89) 98 03/08/18 06:00 112 14 101/69 (80) 98 03/08/18 05:30 108 16 107/79 (88) 97 03/08/18 05:00 115 14 101/74 (83) 96 03/08/18 04:30 111 14 108/62 (77) 97 03/08/18 04:00 Nasal Cannula 2.0 03/08/18 04:00 98.9 106 14 99/70 (80) 97 03/08/18 03:30 109 17 105/73 (84) 97 03/08/18 03:00 110 17 105/68 (80) 95 03/08/18 02:30 107 17 100/65 (77) 96 03/08/18 02:09 99.1 03/08/18 02:00 121 14 96/71 (79) 96 03/08/18 01:30 121 14 114/91 (99) 96 03/08/18 01:00 109 21 92/59 (70) 96 03/08/18 00:58 131 99/79 03/08/18 00:30 129 18 104/69 (81) 96 03/08/18 00:15 Nasal Cannula 2.0 03/08/18 00:00 99.1 133 18 99/79 (86) 99 03/07/18 23:30 144 20 93/68 (76) 96 03/07/18 21:00 Nasal Cannula 3.0 03/07/18 20:00 96.3 117 20 114/75 (88) 99 03/07/18 18:34 139/79 03/07/18 16:00 98.6 90 18 139/79 (99) 96 Intake and Output 03/07/18 03/08/18 19:00 07:00 Intake Total 480 ml 520 ml Output Total 30 ml Balance 480 ml 490 ml Intake Oral 480 ml IV Total 520 ml Output Urine Total 30 ml # Voids 3 2 Laboratory Tests 03/08/18 05:15: White Blood Count 11.6H, Red Blood Count 3.90L, Hemoglobin 11.6L, Hematocrit 34.2L, Mean Corpuscular Volume 88, Mean Corpuscular Hemoglobin 29.6, Mean Corpuscular Hemoglobin Concent 33.8, Red Cell Distribution Width 12.8, Platelet Count 137L, Mean Platelet Volume 7.1, Neutrophils (%) (Auto) 73.5, Lymphocytes ( %) (Auto) 12.0L, Monocytes (%) (Auto) 12.1H, Eosinophils (%) (Auto) 1.7, Basophils (%) (Auto) 0.7, Sodium Level 136, Potassium Level 4.0, Chloride Level 102, Carbon Dioxide Level 28, Anion Gap 6, Blood Urea Nitrogen 32H, Creatinine 2.2H, Estimat Glomerular Filtration Rate , Glucose Level 157H, Calcium Level 8.5 , Calcium (Send out) [Pending], Vitamin D 25-Hydroxy [Pending], 25-Hydroxy Vitamin D2 [Pending], 25-Hydroxy Vitamin D3 [Pending], Parathyroid Hormone ( Intact) [Pending] Height (Feet): 5 Height (Inches): 11.00 Weight (Pounds): 230 Cardiovascular: irregularly irregular Abdomen: decreased bowel sounds Extremities: trace edema Boy Fernandez MD Mar 08, 2018 14:29
[2018-03-08 15:29] LABS: APPEARANCE,URINE CLEAR; BILIRUBIN, URINE NEGATIVE (NEGATIVE); GLUCOSE, URINE (UA) NEGATIVE (NEGATIVE); KETONES,URINE 1+ (NEGATIVE); LEUKOCYTE ESTERASE ,URINE 2+ (NEGATIVE); NITRITE,URINE NEGATIVE (NEGATIVE); PH,URINE 5 (4.5-8.0); PROTEIN,URINE 4+ (NEGATIVE); UROBILINOGEN,URINE 1 MG/DL (0.0-1.0)
[2018-03-08 15:33] LABS: COLOR,URINE YELLOW
[2018-03-08] MEDS: dilTIAZem HCl 90mg tab ORAL SCH (17:48)
[2018-03-08] MEDS ORDERED: Atorvastatin 20mg tab ORAL SCH (21:00)
[2018-03-08] MEDS ORDERED: Donepezil 10mg tab ORAL SCH (21:00)
--- NOTE | 2018-03-08 22:00 | Consultation ---
DATE OF CONSULTATION: INFECTIOUS DISEASE CONSULTATION CONSULTING PHYSICIAN: Srini Sam M.D. REQUESTING PHYSICIAN: Shelby Arrington M.D. REASON FOR CONSULTATION: Leukocytosis after left hip replacement surgery. The recommendation for antibiotics treatment and further management. HISTORY OF PRESENT ILLNESS: The patient is an 87-year-old male with past medical history of dementia, COPD, depression, hyperlipidemia, Parkinson disease, and history of pneumonia and was brought in to [facility] emergency room complaining of left hip pain after he fell at the [facility] where he lives at. The patient's pain was 8/10 on the left side and he was slightly confused. The patient had an x-ray of the left hip, which showed evidence of left intertrochanteric fracture. So, he was seen and evaluated by orthopedic surgeon and underwent open reduction and internal fixation of his left hip. On 03/06/2018, the patient was monitored in the tele unit. After that, he developed atrial fibrillation with rapid ventricular rate and worsening renal failure. So, he was transferred to the ICU for further observation and management. The patient's white count was found to be increasing with unclear source. So, Infectious Disease consultation requested for antibiotics treatment and further management. As of note, the patient is demented, nonverbal, and cannot provide any history. History was mainly obtained from the medical record and nursing staff. REVIEW OF SYSTEMS: Unable to obtain as the patient is poor historian. PAST MEDICAL HISTORY: Significant for dementia, COPD, depression, hyperlipidemia, Parkinson disease, hypertension, and previous pneumonia. PAST SURGICAL HISTORY: He had a tumor of the acoustic nerve, which was removed. He had a prostate surgery, appendectomy, and fusion over the cervical spine. FAMILY HISTORY: Unable to obtain. SOCIAL HISTORY: The patient lives at the [facility]. He quit smoking 70 years ago. Denied using any alcohol or IV drugs currently. MEDICATIONS: He is on diltiazem, atorvastatin, Aricept, Cardizem, heparin, Neurontin, Sinemet, Seroquel, Effexor, Tylenol, Ultram, Catapres, and [place]. LABORATORY DATA: Showed white count of 11.6, hemoglobin of 11.6, and platelet count of 137,000. BUN of 32 and creatinine of 2.2. Urinalysis showed negative leukocyte esterase, negative nitrite, and occasional bacteria in the urine. IMAGING DATA: Chest x-ray today showed no acute process. Renal ultrasound was negative for hydronephrosis. Hip and pelvis x-ray showed positive left hip intertrochanteric fracture. PHYSICAL EXAMINATION: VITAL SIGNS: Temperature 99.2, pulse 91, respirations 21, blood pressure 107/63, and pulse ox 98% on two liters nasal cannula. GENERAL: Elderly male, up in bed. Awake and alert, but not verbal and does not follow command, not in acute distress. HEENT: Normocephalic and atraumatic. Pupils are reactive to light. Pale sclerae. Moist oral mucosa. No exudate. NECK: Supple. No lymphadenopathy. CARDIOVASCULAR: Regular rate and rhythm. No murmur or gallop. LUNGS: He had diminished breathing sounds at the bases with poor air entry. No wheezing or rhonchi. ABDOMEN: Soft, obese, nontender, and nondistended. Normal bowel sounds. No hepatosplenomegaly or ascites. EXTREMITIES: Trace edema in the lower extremity. Left hip surgical wound looks clean, dry, and intact with no oozing or drainage. No skin erythema. SKIN: No rash. No hives. ASSESSMENT AND RECOMMENDATION: 1. Leukocytosis, rule out postop infection or sepsis. We will order urinalysis and blood culture to rule out bacteremia. Chest x-ray today was negative for any infiltrate. We will monitor the patient now, off antibiotics. Pending other cultures and study. 2. Trochanteric fracture of the left femur, status post open reduction and internal fixation post operation day #2. Continue pain management and physical therapy as per ortho team. Monitor wound daily and change dressing as needed. 3. Acute renal failure, suspect dehydration versus acute tubular necrosis. Continue hydration. Avoid nephrotoxic. Monitor renal function. Nephrology team is following. 4. Left hip pain due to the above. Continue pain management as needed. Encourage ambulation. Thank you for the consult. ID will continue to follow. Please feel free to call with any question. Srini Sam M.D. DR: MARII JOB#: [id number] CC:
[2018-03-09] VITALS (20 sets, daily range): BP systolic 101–129; BP diastolic 35–85
[2018-03-09] MEDS: dilTIAZem HCl 90mg tab ORAL SCH ×4 (00:26→17:17)
[2018-03-09] MEDS: D5 1/2NS 1,000 ML IV SCH ×3 (03:00→18:35)
[2018-03-09 05:19] LABS: BASOPHILS % (AUTO) 0.6 % (0.0-2.0); EOSINOPHILS % (AUTO) 1.4 % (0.0-3.0); HEMATOCRIT 31.5 % (42.0-52.0); HEMOGLOBIN 10.6 G/DL (14.2-18.0); LYMPHOCYTES % (AUTO) 6.8 % (20.0-45.0); MEAN CORPUSCULAR VOLUME 88 FL (80-99); MONOCYTES % (AUTO) 10.9 % (1.0-10.0); NEUTROPHILS % (AUTO) 80.4 % (45.0-75.0); PLATELET COUNT 130 K/UL (150-450); RED BLOOD COUNT 3.58 M/UL (4.70-6.10); RED CELL DISTRIBUTION WIDTH 12.7 % (11.6-14.8); WHITE BLOOD COUNT 15.8 K/UL (4.8-10.8)
[2018-03-09 05:22] LABS: ANION GAP 9 mmol/L (5-15); BLOOD UREA NITROGEN 36 mg/dL (7-18); CALCIUM 8.9 MG/DL (8.5-10.1); CARBON DIOXIDE 25 MMOL/L (21-32); CHLORIDE 101 MMOL/L (98-107); CREATININE 2.2 MG/DL (0.55-1.30); POTASSIUM 4.4 MMOL/L (3.5-5.1); SODIUM 135 MMOL/L (136-145)
[2018-03-09] MEDS: Levodopa/Carbidopa 25/100 tab ORAL SCH ×3 (08:08→17:16)
[2018-03-09] MEDS: Venlafaxine XR 37.5mg cap ORAL SCH (08:08)
[2018-03-09] MEDS: Heparin 5000 units/ml inj SUBQ SCH ×2 (08:10→20:33)
--- NOTE | 2018-03-09 09:00 | General Progress Note ---
Assessment/Plan Status: stable Assessment/Plan 1. New onset A. fib - On diltiazem 90 mg PO and off drip. Rate controlled with oral diltiazem now. Transfer to Telemetry today if ok with solution spec. 2. Lt hip intertrochanteric fracture, status post mechanical fall - Post op day three - PT/OT per surgery. 3. Hypertension - on Diltiazem PO now. 4. Hyperlipidemia - cont lipitor 20 mg one po qhs. 5. Dementia - cont Aricept 10 mg po qhs. 6. Depression - cont effexor 75 mg 1/2 po daily. 7. Low extremity edema - improved. 8. Parkinson disease. Cont Sinemet 25/100 one po tid. 9. Acute on chronic renal failure 10. Leukocytosis - CXR negative. Will follow cx result. ID following as well. Subjective Date patient seen: Mar 09, 2018 Time patient seen: 08:40 Constitutional: Reports: weakness HEENT: Reports: no symptoms Cardiovascular: Reports: irregular heart rate Respiratory: Reports: no symptoms Gastrointestinal/Abdominal: Reports: no symptoms Genitourinary: Reports: no symptoms Neurologic/Psychiatric: Reports: no symptoms Endocrine: Reports: no symptoms Hematologic/Lymphatic: Reports: no symptoms Allergies: Coded Allergies: PENICILLINS (Verified Allergy, Unknown, 03/05/18) Subjective He is s/p Lt hip surgery. Off diltiazem drip and on PO cardiazem for A fib. HR in 70's. Still in ICU today. afebrile. no sob or chest pain. no nausea or vomiting. Objective Last 24 Hour Vital Signs Date Time Temp Pulse Resp B/P (MAP) Pulse Ox O2 Delivery O2 Flow Rate FiO2 03/09/18 08:00 81 03/09/18 08:00 98.3 81 20 129/68 (88) 98 03/09/18 08:00 Nasal Cannula 2.0 03/09/18 07:00 83 20 122/67 (85) 100 03/09/18 06:00 86 20 103/55 (71) 100 03/09/18 05:32 89 123/66 03/09/18 05:00 84 16 123/66 (85) 97 03/09/18 04:00 Nasal Cannula 2.0 03/09/18 04:00 60 03/09/18 04:00 80 18 115/73 (87) 98 03/09/18 03:00 98.3 72 17 117/57 (77) 99 18 02:00 77 17 111/61 (78) 99 18 01:00 76 17 106/79 (88) 100 18 00:26 82 128/72 18 00:00 85 18 00:00 84 17 128/72 (90) 96 03/09/18 00:00 Nasal Cannula 2.0 03/08/18 23:00 98.9 79 17 116/59 (78) 99 03/08/18 22:00 78 16 91/65 (74) 99 03/08/18 21:00 77 18 100/61 (74) 98 03/08/18 20:00 Nasal Cannula 2.0 03/08/18 20:00 91 03/08/18 20:00 99.4 85 17 110/69 (83) 97 03/08/18 19:00 92 18 112/67 (82) 94 18 18:37 99.8 18 18:00 84 21 120/83 (95) 96 18 17:48 101 122/92 18 17:30 96 21 122/92 (102) 96 18 17:00 89 21 117/77 (90) 95 18 16:30 100.1 98 21 128/60 (82) 98 03/08/18 16:00 Nasal Cannula 2.0 03/08/18 16:00 91 03/08/18 16:00 95 21 110/76 (87) 98 18 15:30 92 16 106/80 (89) 97 1618 15:00 87 17 116/79 (91) 97 18 14:30 94 17 97/72 (80) 98 18 14:00 92 21 113/79 (90) 91 18 13:30 91 19 111/70 (84) 98 03/08/18 13:00 90 16 117/56 (76) 98 18 12:30 91 21 112/69 (83) 98 18 12:00 Nasal Cannula 2.0 18 12:00 91 03/08/18 12:00 99.2 91 21 107/63 (78) 98 03/08/18 11:30 93 16 133/51 (78) 99 03/08/18 11:00 91 16 106/63 (77) 98 03/08/18 10:30 89 17 109/64 (79) 98 03/08/18 10:00 94 19 92/64 (73) 98 03/08/18 09:30 97 20 104/65 (78) 98 03/08/18 09:24 95 103/73 03/08/18 09:00 99 21 103/73 (83) 98 Intake and Output 03/08/18 03/09/18 19:00 07:00 Intake Total 1377.5 ml 1065 ml Output Total 485 ml 665 ml Balance 892.5 ml 400 ml Intake Oral 420 ml 240 ml IV Total 957.5 ml 825 ml Output Urine Total 485 ml 665 ml Laboratory Tests 03/08/18 15:00: Urine Color Yellow, Urine Appearance Clear, Urine pH 5, Urine Specific [place] 1.020, Urine Protein 4+H, Urine Glucose (UA) Negative, Urine Ketones 1+H, Urine Blood Negative, Urine Nitrite Negative, Urine Bilirubin Negative, Urine Urobilinogen 1H, Urine Leukocyte Esterase 2+H, Urine RBC 0-2H, Urine WBC 5-10H, Urine Squamous Epithelial Cells None, Urine Bacteria Few 03/09/18 04:30: White Blood Count 15.8H, Red Blood Count 3.58L, Hemoglobin 10.6L, Hematocrit 31.5L, Mean Corpuscular Volume 88, Mean Corpuscular Hemoglobin 29.6, Mean Corpuscular Hemoglobin Concent 33.6, Red Cell Distribution Width 12.7, Platelet Count 130L, Mean Platelet Volume 7.5, Neutrophils (%) (Auto) 80.4H, Lymphocytes (%) (Auto) 6.8L, Monocytes (%) (Auto) 10.9H, Eosinophils (%) (Auto) 1.4, Basophils (%) (Auto) 0.6, Sodium Level 135L, Potassium Level 4.4, Chloride Level 101, Carbon Dioxide Level 25, Anion Gap 9, Blood Urea Nitrogen 36H, Creatinine 2.2H, Estimat Glomerular Filtration Rate , Glucose Level 167H, Calcium Level 8.9, Magnesium Level 2.0 Height (Feet): 5 Height (Inches): 11.00 Weight (Pounds): 235 General Appearance: no apparent distress, alert EENT: normal ENT inspection Neck: non-tender, normal alignment, supple Cardiovascular: normal rate, regularly irregular Respiratory/Chest: chest wall non-tender, lungs clear, normal breath sounds Abdomen: normal bowel sounds, non tender, soft Extremities: normal range of motion, non-tender Edema: no edema noted Arm (L), no edema noted Arm (R), no edema noted Leg (L), no edema noted Leg (R), no edema noted Pedal (L), no edema noted Pedal (R), no edema noted Generalized Neurologic: alert, responsive Skin: warm/dry Lymphatic: normal anterior cervical (L), normal anterior cervical (R), normal posterior cervical (L), normal posterior cervical (R), normal submandibular (L) , normal submandibular (R), normal supraclavicular (L), normal supraclavicular ( R), normal axillary (L), normal axillary (R), normal inguinal (L), normal inguinal (R), normal other Shelby Arrington MD Mar 09, 2018 09:00
--- NOTE | 2018-03-09 13:52 | Infectious Diseases Prog Note ---
Assessment/Plan Problems: (1) Leukocytosis Assessment & Plan: increasing , possible post OP infection VS UTI , will order urine culture , and start cefepime with doxycycline empirically pending cultures . (2) Trochanteric fracture of left femur Assessment & Plan: S/P ORIF, POD2 , continue pain management and pt/ot as per ortho (3) STUART (acute kidney injury) Assessment & Plan: suspect dehydration VS ATN , continue hydration, avoid nephrotoxics, monitor renal function (4) Left hip pain Assessment & Plan: due to the above, continue pain management as needed Subjective Constitutional: Reports: fever HEENT: Reports: no symptoms Respiratory: Reports: no symptoms Breasts: Reports: no symptoms Cardiovascular: Reports: no symptoms Gastrointestinal/Abdominal: Reports: constipation, bloating Genitourinary: Reports: no symptoms Neurologic: Reports: weakness Psychiatric: Reports: no symptoms Skin: Reports: no symptoms Endocrine: Reports: no symptoms Hematologic: Reports: no symptoms Musculoskeletal: Reports: no symptoms Allergies: Coded Allergies: PENICILLINS (Verified Allergy, Unknown, 03/05/18) Objective Vital Signs Last 24 Hour Vital Signs Date Time Temp Pulse Resp B/P (MAP) Pulse Ox O2 Delivery O2 Flow Rate FiO2 03/09/18 12:00 98.8 79 19 115/66 (82) 98 03/09/18 12:00 Nasal Cannula 2.0 03/09/18 12:00 84 03/09/18 11:57 81 118/59 03/09/18 11:00 70 18 118/59 (78) 96 03/09/18 10:00 77 18 117/63 (81) 98 03/09/18 09:00 72 20 118/35 (62) 97 03/09/18 08:00 81 03/09/18 08:00 98.3 81 20 129/68 (88) 98 03/09/18 08:00 Nasal Cannula 2.0 03/09/18 07:00 83 20 122/67 (85) 100 03/09/18 06:00 86 20 103/55 (71) 100 03/09/18 05:32 89 123/66 03/09/18 05:00 84 16 123/66 (85) 97 03/09/18 04:00 Nasal Cannula 2.0 03/09/18 04:00 60 03/09/18 04:00 80 18 115/73 (87) 98 03/09/18 03:00 98.3 72 17 117/57 (77) 99 03/09/18 02:00 77 17 111/61 (78) 99 03/09/18 01:00 76 17 106/79 (88) 100 18 00:26 82 128/72 03/09/18 00:00 85 03/09/18 00:00 84 17 128/72 (90) 96 03/09/18 00:00 Nasal Cannula 2.0 03/08/18 23:00 98.9 79 17 116/59 (78) 99 03/08/18 22:00 78 16 91/65 (74) 99 03/08/18 21:00 77 18 100/61 (74) 98 03/08/18 20:00 Nasal Cannula 2.0 03/08/18 20:00 91 03/08/18 20:00 99.4 85 17 110/69 (83) 97 03/08/18 19:00 92 18 112/67 (82) 94 03/08/18 18:37 99.8 03/08/18 18:00 84 21 120/83 (95) 96 18 17:48 101 122/92 03/08/18 17:30 96 21 122/92 (102) 96 03/08/18 17:00 89 21 117/77 (90) 95 03/08/18 16:30 100.1 98 21 128/60 (82) 98 03/08/18 16:00 Nasal Cannula 2.0 03/08/18 16:00 91 03/08/18 16:00 95 21 110/76 (87) 98 03/08/18 15:30 92 16 106/80 (89) 97 03/08/18 15:00 87 17 116/79 (91) 97 03/08/18 14:30 94 17 97/72 (80) 98 03/08/18 14:00 92 21 113/79 (90) 91 Height (Feet): 5 Height (Inches): 11.00 Weight (Pounds): 235 General Appearance: WD/WN, no acute distress HEENT: normocephalic, atraumatic, anicteric, mucous membranes moist, PERRL Respiratory/Chest: chest wall non-tender, lungs clear, normal breath sounds, no respiratory distress, no accessory muscle use Cardiovascular: normal peripheral pulses, normal rate, regular rhythm, no gallop/murmur, no JVD Abdomen: soft, non tender, no organomegaly, no mass, no scars, hypoactive bowel sounds, distended Extremities: no cyanosis, no clubbing Skin: no rash, no lesions, no ulcers, other - left hip surgical wounds clean and dry , no erythema or draining Neurologic/Psychiatric: alert, responsive Lymphatic: no neck adenopathy, no groin adenopathy Laboratory Tests Test 03/08/18 15:00 03/09/18 04:30 Urine Color Yellow Urine Appearance Clear Urine pH 5 (4.5-8.0) Urine Specific [place] 1.020 (1.005-1.035) Urine Protein 4+ (NEGATIVE) H Urine Glucose (UA) Negative (NEGATIVE) Urine Ketones 1+ (NEGATIVE) H Urine Blood Negative (NEGATIVE) Urine Nitrite Negative (NEGATIVE) Urine Bilirubin Negative (NEGATIVE) Urine Urobilinogen 1 MG/DL (0.0-1.0) H Urine Leukocyte Esterase 2+ (NEGATIVE) H Urine RBC 0-2 /HPF (0 - 0) H Urine WBC 5-10 /HPF (0 - 0) H Urine Squamous Epithelial Cells None /LPF (NONE/OCC) Urine Bacteria Few /HPF (NONE) White Blood Count 15.8 K/UL (4.8-10.8) H Red Blood Count 3.58 M/UL (4.70-6.10) L Hemoglobin 10.6 G/DL (14.2-18.0) L Hematocrit 31.5 % (42.0-52.0) L Mean Corpuscular Volume 88 FL (80-99) Mean Corpuscular Hemoglobin 29.6 PG (27.0-31.0) Mean Corpuscular Hemoglobin Concent 33.6 G/DL (32.0-36.0) Red Cell Distribution Width 12.7 % (11.6-14.8) Platelet Count 130 K/UL (150-450) L Mean Platelet Volume 7.5 FL (6.5-10.1) Neutrophils (%) (Auto) 80.4 % (45.0-75.0) H Lymphocytes (%) (Auto) 6.8 % (20.0-45.0) L Monocytes (%) (Auto) 10.9 % (1.0-10.0) H Eosinophils (%) (Auto) 1.4 % (0.0-3.0) Basophils (%) (Auto) 0.6 % (0.0-2.0) Sodium Level 135 MMOL/L (136-145) L Potassium Level 4.4 MMOL/L (3.5-5.1) Chloride Level 101 MMOL/L (98-107) Carbon Dioxide Level 25 MMOL/L (21-32) Anion Gap 9 mmol/L (5-15) Blood Urea Nitrogen 36 mg/dL (7-18) H Creatinine 2.2 MG/DL (0.55-1.30) H Estimat Glomerular Filtration Rate mL/min (>60) Glucose Level 167 MG/DL (74-106) H Calcium Level 8.9 MG/DL (8.5-10.1) Magnesium Level 2.0 MG/DL (1.8-2.4) Current Medications Medications (Trade) Dose Ordered Sig/Colin Route PRN Reason Start Time Stop Time Status Last Admin Dose Admin Acetaminophen (Tylenol) 650 mg Q6H PRN ORAL Mild Pain/Temp > 100.5 03/08/18 05:30 04/04/18 11:29 03/08/18 18:07 Acetaminophen/ Hydrocodone Bitart ([place] 5/325) 1 tab Q6H PRN ORAL Severe Pain (Pain Scale 7-10) 03/08/18 01:00 03/12/18 12:59 03/08/18 01:39 Atorvastatin Calcium (Lipitor) 20 mg BEDTIME ORAL 03/08/18 21:00 04/04/18 20:59 03/08/18 21:17 Carbidopa/Levodopa (Sinemet 25/100) 1 tab THREE TIMES A DAY ORAL 03/08/18 09:00 04/04/18 12:59 03/09/18 12:03 Clonidine HCl (Catapres Tab) 0.1 mg Q8H PRN ORAL FOR SBP GREATER THAN 160 03/08/18 03:30 04/04/18 11:29 Dextrose/Sodium Chloride 1,000 ml @ 75 mls/hr [id number] IV 03/08/18 00:15 04/06/18 11:59 03/09/18 03:00 Diltiazem HCl (Cardizem) 90 mg EVERY 6 HOURS ORAL 03/08/18 18:00 04/07/18 17:59 03/09/18 11:57 Donepezil HCl (Aricept) 10 mg QHS ORAL 03/08/18 21:00 04/04/18 20:59 03/08/18 21:15 Gabapentin (Neurontin) 100 mg DAILY ORAL 03/08/18 09:00 04/05/18 08:59 03/09/18 08:08 Heparin Sodium (Porcine) (Heparin 5000 units/ml) 5,000 units EVERY 12 HOURS SUBQ 03/08/18 14:00 04/04/18 13:59 03/09/18 08:10 Quetiapine Fumarate (SEROquel) 25 mg DAILY ORAL 03/08/18 09:00 04/05/18 08:59 03/09/18 08:08 Tramadol HCl (Ultram) 50 mg Q8H PRN ORAL Moderate Pain (Pain Scale 4-6) 03/08/18 05:00 03/12/18 12:59 Venlafaxine HCl (Effexor-XR) 37.5 mg DAILY ORAL 03/08/18 09:00 04/06/18 08:59 03/09/18 08:08 Srini Sam M.D. Mar 09, 2018 13:52
--- NOTE | 2018-03-09 14:37 | Cardiac Electrophysiology PN ---
Assessment/Plan Assessment/Plan 1. Atrial fib with RVR. On Cardizem 90 po q 6hr. Anticoagulation when OK with surgery and GI 2. Hypertension.On Cardizem 90 qid Avoid NAPOLEON inhibitor and angiotensin receptive blockers in view of renal failure. 3. Renal failure. Creatinine is decreased to 2.1. Avoid Lasix, NAPOLEON inhibitors and angiotensin receptive blockers. 4. Left hip fracture. S/P replacement hip surgery. No prior myocardial infarction or coronary artery disease. EKG showed no acute ischemic changes. Echocardiogram showed Nl EF. 5. Dementia, on Aricept. 6. Hyperlipidemia, on Lipitor. 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 Stool. DW Dr Esquivel and RN and Jose Subjective Subjective In ICU for atrial fib with RVR. Cardizem drip DCed.Alert in NAD. Echo Nl EF. Objective Last 24 Hour Vital Signs Date Time Temp Pulse Resp B/P (MAP) Pulse Ox O2 Delivery O2 Flow Rate FiO2 03/09/18 12:00 98.8 79 19 115/66 (82) 98 03/09/18 12:00 Nasal Cannula 2.0 03/09/18 12:00 84 03/09/18 11:57 81 118/59 03/09/18 11:00 70 18 118/59 (78) 96 03/09/18 10:00 77 18 117/63 (81) 98 03/09/18 09:00 72 20 118/35 (62) 97 03/09/18 08:00 81 03/09/18 08:00 98.3 81 20 129/68 (88) 98 03/09/18 08:00 Nasal Cannula 2.0 03/09/18 07:00 83 20 122/67 (85) 100 03/09/18 06:00 86 20 103/55 (71) 100 03/09/18 05:32 89 123/66 03/09/18 05:00 84 16 123/66 (85) 97 03/09/18 04:00 Nasal Cannula 2.0 03/09/18 04:00 60 03/09/18 04:00 80 18 115/73 (87) 98 03/09/18 03:00 98.3 72 17 117/57 (77) 99 03/09/18 02:00 77 17 111/61 (78) 99 03/09/18 01:00 76 17 106/79 (88) 100 11/17/18 00:26 82 128/72 18 00:00 85 03/09/18 00:00 84 17 128/72 (90) 96 03/09/18 00:00 Nasal Cannula 2.0 03/08/18 23:00 98.9 79 17 116/59 (78) 99 03/08/18 22:00 78 16 91/65 (74) 99 03/08/18 21:00 77 18 100/61 (74) 98 03/08/18 20:00 Nasal Cannula 2.0 03/08/18 20:00 91 03/08/18 20:00 99.4 85 17 110/69 (83) 97 03/08/18 19:00 92 18 112/67 (82) 94 03/08/18 18:37 99.8 03/08/18 18:00 84 21 120/83 (95) 96 18 17:48 101 122/92 03/08/18 17:30 96 21 122/92 (102) 96 03/08/18 17:00 89 21 117/77 (90) 95 18 16:30 100.1 98 21 128/60 (82) 98 18 16:00 Nasal Cannula 2.0 03/08/18 16:00 91 03/08/18 16:00 95 21 110/76 (87) 98 03/08/18 15:30 92 16 106/80 (89) 97 03/08/18 15:00 87 17 116/79 (91) 97 Intake and Output 03/08/18 03/09/18 19:00 07:00 Intake Total 1377.5 ml 1065 ml Output Total 485 ml 665 ml Balance 892.5 ml 400 ml Intake Oral 420 ml 240 ml IV Total 957.5 ml 825 ml Output Urine Total 485 ml 665 ml Laboratory Tests Test 03/08/18 15:00 03/09/18 04:30 Urine Color Yellow Urine Appearance Clear Urine pH 5 (4.5-8.0) Urine Specific [place] 1.020 (1.005-1.035) Urine Protein 4+ (NEGATIVE) H Urine Glucose (UA) Negative (NEGATIVE) Urine Ketones 1+ (NEGATIVE) H Urine Blood Negative (NEGATIVE) Urine Nitrite Negative (NEGATIVE) Urine Bilirubin Negative (NEGATIVE) Urine Urobilinogen 1 MG/DL (0.0-1.0) H Urine Leukocyte Esterase 2+ (NEGATIVE) H Urine RBC 0-2 /HPF (0 - 0) H Urine WBC 5-10 /HPF (0 - 0) H Urine Squamous Epithelial Cells None /LPF (NONE/OCC) Urine Bacteria Few /HPF (NONE) White Blood Count 15.8 K/UL (4.8-10.8) H Red Blood Count 3.58 M/UL (4.70-6.10) L Hemoglobin 10.6 G/DL (14.2-18.0) L Hematocrit 31.5 % (42.0-52.0) L Mean Corpuscular Volume 88 FL (80-99) Mean Corpuscular Hemoglobin 29.6 PG (27.0-31.0) Mean Corpuscular Hemoglobin Concent 33.6 G/DL (32.0-36.0) Red Cell Distribution Width 12.7 % (11.6-14.8) Platelet Count 130 K/UL (150-450) L Mean Platelet Volume 7.5 FL (6.5-10.1) Neutrophils (%) (Auto) 80.4 % (45.0-75.0) H Lymphocytes (%) (Auto) 6.8 % (20.0-45.0) L Monocytes (%) (Auto) 10.9 % (1.0-10.0) H Eosinophils (%) (Auto) 1.4 % (0.0-3.0) Basophils (%) (Auto) 0.6 % (0.0-2.0) Sodium Level 135 MMOL/L (136-145) L Potassium Level 4.4 MMOL/L (3.5-5.1) Chloride Level 101 MMOL/L (98-107) Carbon Dioxide Level 25 MMOL/L (21-32) Anion Gap 9 mmol/L (5-15) Blood Urea Nitrogen 36 mg/dL (7-18) H Creatinine 2.2 MG/DL (0.55-1.30) H Estimat Glomerular Filtration Rate mL/min (>60) Glucose Level 167 MG/DL (74-106) H Calcium Level 8.9 MG/DL (8.5-10.1) Magnesium Level 2.0 MG/DL (1.8-2.4) Objective HEAD AND NECK: No JVD LUNGS: Clear. CARDIOVASCULAR: Irreegular S1 and S2 with no gallop or murmur. ABDOMEN: Soft and nontender. EXTREMITIES: 1+ pitting edema. S/P hip surgery. Gary Bay MD Mar 09, 2018 14:37
[2018-03-09] MEDS ORDERED: Cefepime HCl 2 GM in D5W 55 ML IVPB SCH (15:00)
--- NOTE | 2018-03-09 15:02 | Nephrology Progress Note ---
Assessment/Plan Problem List: (1) CKD (chronic kidney disease) (2) STUART (acute kidney injury) Assessment: no change likely ATN (3) Trochanteric fracture of left femur (4) Afib Plan follow BMP Await Vit D Discussed with RN Out of ICU Subjective Subjective more alert Objective Objective Last 24 Hour Vital Signs Date Time Temp Pulse Resp B/P (MAP) Pulse Ox O2 Delivery O2 Flow Rate FiO2 03/09/18 14:00 74 21 127/67 (87) 97 03/09/18 13:00 73 21 101/67 (78) 96 03/09/18 12:00 98.8 79 19 115/66 (82) 98 03/09/18 12:00 Nasal Cannula 2.0 03/09/18 12:00 84 03/09/18 11:57 81 118/59 03/09/18 11:00 70 18 118/59 (78) 96 03/09/18 10:00 77 18 117/63 (81) 98 03/09/18 09:00 72 20 118/35 (62) 97 03/09/18 08:00 81 03/09/18 08:00 98.3 81 20 129/68 (88) 98 03/09/18 08:00 Nasal Cannula 2.0 03/09/18 07:00 83 20 122/67 (85) 100 03/09/18 06:00 86 20 103/55 (71) 100 03/09/18 05:32 89 123/66 03/09/18 05:00 84 16 123/66 (85) 97 03/09/18 04:00 Nasal Cannula 2.0 03/09/18 04:00 60 03/09/18 04:00 80 18 115/73 (87) 98 03/09/18 03:00 98.3 72 17 117/57 (77) 99 03/09/18 02:00 77 17 111/61 (78) 99 03/09/18 01:00 76 17 106/79 (88) 100 03/09/18 00:26 82 128/72 03/09/18 00:00 85 03/09/18 00:00 84 17 128/72 (90) 96 03/09/18 00:00 Nasal Cannula 2.0 03/08/18 23:00 98.9 79 17 116/59 (78) 99 03/08/18 22:00 78 16 91/65 (74) 99 03/08/18 21:00 77 18 100/61 (74) 98 03/08/18 20:00 Nasal Cannula 2.0 03/08/18 20:00 91 03/08/18 20:00 99.4 85 17 110/69 (83) 97 03/08/18 19:00 92 18 112/67 (82) 94 03/08/18 18:37 99.8 03/08/18 18:00 84 21 120/83 (95) 96 18 17:48 101 122/92 03/08/18 17:30 96 21 122/92 (102) 96 03/08/18 17:00 89 21 117/77 (90) 95 03/08/18 16:30 100.1 98 21 128/60 (82) 98 03/08/18 16:00 Nasal Cannula 2.0 03/08/18 16:00 91 03/08/18 16:00 95 21 110/76 (87) 98 03/08/18 15:30 92 16 106/80 (89) 97 03/08/18 15:00 87 17 116/79 (91) 97 Intake and Output 03/08/18 03/09/18 19:00 07:00 Intake Total 1377.5 ml 1065 ml Output Total 485 ml 665 ml Balance 892.5 ml 400 ml Intake Oral 420 ml 240 ml IV Total 957.5 ml 825 ml Output Urine Total 485 ml 665 ml Laboratory Tests 03/08/18 15:00: Urine Color Yellow, Urine Appearance Clear, Urine pH 5, Urine Specific [place] 1.020, Urine Protein 4+H, Urine Glucose (UA) Negative, Urine Ketones 1+H, Urine Blood Negative, Urine Nitrite Negative, Urine Bilirubin Negative, Urine Urobilinogen 1H, Urine Leukocyte Esterase 2+H, Urine RBC 0-2H, Urine WBC 5-10H, Urine Squamous Epithelial Cells None, Urine Bacteria Few 03/09/18 04:30: White Blood Count 15.8H, Red Blood Count 3.58L, Hemoglobin 10.6L, Hematocrit 31.5L, Mean Corpuscular Volume 88, Mean Corpuscular Hemoglobin 29.6, Mean Corpuscular Hemoglobin Concent 33.6, Red Cell Distribution Width 12.7, Platelet Count 130L, Mean Platelet Volume 7.5, Neutrophils (%) (Auto) 80.4H, Lymphocytes (%) (Auto) 6.8L, Monocytes (%) (Auto) 10.9H, Eosinophils (%) (Auto) 1.4, Basophils (%) (Auto) 0.6, Sodium Level 135L, Potassium Level 4.4, Chloride Level 101, Carbon Dioxide Level 25, Anion Gap 9, Blood Urea Nitrogen 36H, Creatinine 2.2H, Estimat Glomerular Filtration Rate , Glucose Level 167H, Calcium Level 8.9, Magnesium Level 2.0 Height (Feet): 5 Height (Inches): 11.00 Weight (Pounds): 235 Cardiovascular: irregularly irregular Respiratory/Chest: lungs clear Extremities: moderate edema Boy Fernandez MD Mar 09, 2018 15:02
[2018-03-09] MEDS ORDERED: Fleet's Enema 133ml RECTAL SCH ×3 (16:00→22:00)
[2018-03-09] MEDS ORDERED: Doxycycline Hyclate 100 MG in D5W 110 ML IV SCH (16:00)
--- NOTE | 2018-03-09 17:55 | Diagnostic Imaging Report ---
EXAM: XR Abdomen, 2 Views CLINICAL HISTORY: CONSTIP TECHNIQUE: Frontal view of the abdomen/pelvis with upright view of the abdomen. COMPARISON: No relevant prior studies available. FINDINGS: Lower thorax: Streaky interstitial prominence of the lungs. Intraperitoneal space: No free air. Gastrointestinal tract: Moderate stool in the rectum, may be constipation. No bowel obstruction. No free air. Bones/joints: Degenerative changes of the spine. Dynamic left hip screw and intramedullary cb through a intertrochanteric fracture. Vasculature: Atherosclerotic vascular disease. IMPRESSION: Moderate stool in the rectum, may be constipation. No bowel obstruction. No free air.
[2018-03-09] MEDS ORDERED: Fleet's Enema 133ml RECTAL ONE ×2 (19:00→22:00)
[2018-03-09] MEDS: Donepezil 10mg tab ORAL SCH (20:31)
[2018-03-09] MEDS: Atorvastatin 20mg tab ORAL SCH (20:31)
[2018-03-09] MEDS: Doxycycline Hyclate 100 MG in D5W 110 ML IV SCH (20:33)
[2018-03-09] MEDS: Norco 5mg/325mg tab ORAL PRN (20:36)
[2018-03-09] MEDS ORDERED: traMADol 50mg tab ORAL PRN (21:00)
[2018-03-10] VITALS: BP 135/82
[2018-03-10] MEDS: dilTIAZem HCl 90mg tab ORAL SCH ×5 (00:17→21:05)
[2018-03-10 04:00] VITALS: BP 129/64
[2018-03-10 07:34] LABS: HEMATOCRIT 32.4 % (42.0-52.0); HEMOGLOBIN 10.6 G/DL (14.2-18.0); MEAN CORPUSCULAR VOLUME 87 FL (80-99); PLATELET COUNT 169 K/UL (150-450); RED BLOOD COUNT 3.71 M/UL (4.70-6.10); RED CELL DISTRIBUTION WIDTH 12.2 % (11.6-14.8); WHITE BLOOD COUNT 12.7 K/UL (4.8-10.8)
[2018-03-10 07:45] LABS: ANION GAP 11 mmol/L (5-15); BLOOD UREA NITROGEN 42 mg/dL (7-18); CARBON DIOXIDE 27 MMOL/L (21-32); CHLORIDE 99 MMOL/L (98-107); CREATININE 2.2 MG/DL (0.55-1.30); POTASSIUM 3.9 MMOL/L (3.5-5.1); SODIUM 137 MMOL/L (136-145)
[2018-03-10] MEDS: D5 1/2NS 1,000 ML IV SCH ×2 (07:49→21:07)
[2018-03-10 08:00] VITALS: BP 148/78
[2018-03-10] MEDS: Venlafaxine XR 37.5mg cap ORAL SCH (09:11)
[2018-03-10] MEDS: Levodopa/Carbidopa 25/100 tab ORAL SCH ×3 (09:11→17:15)
[2018-03-10] MEDS: Doxycycline Hyclate 100 MG in D5W 110 ML IV SCH ×2 (09:12→21:05)
[2018-03-10] MEDS: Heparin 5000 units/ml inj SUBQ SCH (09:25)
--- NOTE | 2018-03-10 11:39 | General Progress Note ---
Assessment/Plan Status: stable Assessment/Plan 1. New onset A. fib - On diltiazem 90 mg PO and off drip. Rate controlled with oral diltiazem. need to start anitcoagulation. No sign of bleeding in stool. H/ H stable. 2. Lt hip intertrochanteric fracture, status post mechanical fall - Post op day Four - PT/OT per surgery. 3. Hypertension - on Diltiazem PO now. 4. Hyperlipidemia - cont lipitor 20 mg one po qhs. 5. Dementia - cont Aricept 10 mg po qhs. 6. Depression - cont effexor 75 mg 1/2 po daily. 7. Low extremity edema - improved. 8. Parkinson disease. Cont Sinemet 25/100 one po tid. 9. Acute on chronic renal failure - stable. 10. Leukocytosis - improved. CXR negative. all cultures negative so far. ID following as well. 11. constipation - improved with enema. 12. nausea and vomiting - start zofran 4 mg IVP q 4 hrs prn Subjective Date patient seen: Mar 10, 2018 Time patient seen: 11:00 Constitutional: Reports: weakness HEENT: Reports: no symptoms Cardiovascular: Reports: no symptoms Respiratory: Reports: no symptoms Gastrointestinal/Abdominal: Reports: nausea, vomiting Genitourinary: Reports: no symptoms Neurologic/Psychiatric: Reports: no symptoms Endocrine: Reports: no symptoms Hematologic/Lymphatic: Reports: no symptoms Allergies: Coded Allergies: PENICILLINS (Verified Allergy, Unknown, 03/05/18) Subjective He is s/p Lt hip surgery. on cardiazem for A fib. Today, he was transferred to Telemetry yesterday. afebrile. no sob or chest pain. He had large BM x 2 and he vomited slightly this morning x 2. afebrile. cultures negative so far. Objective Last 24 Hour Vital Signs Date Time Temp Pulse Resp B/P (MAP) Pulse Ox O2 Delivery O2 Flow Rate FiO2 03/10/18 09:00 Nasal Cannula 2.0 03/10/18 08:33 94 Nasal Cannula 2.0 28 03/10/18 08:33 Nasal Cannula 2.0 28 03/10/18 08:00 97.2 88 20 148/78 (101) 97 03/10/18 08:00 94 03/10/18 06:07 81 03/10/18 04:00 97.5 72 18 129/64 (85) 97 03/10/18 04:00 Nasal Cannula 2.0 03/10/18 03:32 70 03/10/18 00:17 97 03/10/18 00:00 Nasal Cannula 2.0 03/10/18 00:00 98.2 68 19 135/82 (99) 97 03/09/18 23:43 93 03/09/18 21:01 99.1 03/09/18 21:00 99.1 03/09/18 20:14 89 03/09/18 20:07 95 Nasal Cannula 2.0 28 03/09/18 20:07 Nasal Cannula 2.0 28 03/09/18 20:00 100.4 83 18 126/74 (91) 96 03/09/18 20:00 Nasal Cannula 2.0 03/09/18 18:41 99.7 85 20 111/65 (80) 94 03/09/18 17:17 87 114/75 03/09/18 17:00 83 26 114/75 (88) 94 03/09/18 16:00 Nasal Cannula 2.0 03/09/18 16:00 99.0 73 20 116/75 (89) 95 03/09/18 15:27 75 03/09/18 15:00 75 21 115/85 (95) 97 03/09/18 14:00 74 21 127/67 (87) 97 03/09/18 13:00 73 21 101/67 (78) 96 03/09/18 12:00 98.8 79 19 115/66 (82) 98 03/09/18 12:00 Nasal Cannula 2.0 03/09/18 12:00 84 03/09/18 11:57 81 118/59 Intake and Output 03/09/18 03/10/18 19:00 07:00 Intake Total 1273.75 ml Output Total 320 ml 200 ml Balance 953.75 ml -200 ml Intake Oral 340 ml IV Total 933.75 ml Output Urine Total 320 ml 200 ml # Bowel Movements 2 Laboratory Tests 03/10/18 06:05: White Blood Count 12.7H, Red Blood Count 3.71L, Hemoglobin 10.6L, Hematocrit 32.4L, Mean Corpuscular Volume 87, Mean Corpuscular Hemoglobin 28.6, Mean Corpuscular Hemoglobin Concent 32.7, Red Cell Distribution Width 12.2, Platelet Count 169, Mean Platelet Volume 7.0, Neutrophils (%) (Auto) , Lymphocytes (%) ( Auto) , Monocytes (%) (Auto) , Eosinophils (%) (Auto) , Basophils (%) (Auto) , Differential Total Cells Counted 100, Neutrophils % (Manual) 83H, Lymphocytes % (Manual) 7L, Monocytes % (Manual) 9, Eosinophils % (Manual) 1, Basophils % ( Manual) 0, Band Neutrophils 0, Platelet Estimate Adequate, Platelet Morphology Normal, Hypochromasia 1+, Sodium Level 137, Potassium Level 3.9, Chloride Level 99, Carbon Dioxide Level 27, Anion Gap 11, Blood Urea Nitrogen 42H, Creatinine 2.2H, Estimat Glomerular Filtration Rate , Glucose Level 172H, Calcium Level 9.0 Height (Feet): 5 Height (Inches): 11.00 Weight (Pounds): 240 General Appearance: no apparent distress, alert EENT: normal ENT inspection Neck: non-tender, normal alignment, supple Cardiovascular: normal rate, regular rhythm Respiratory/Chest: chest wall non-tender, lungs clear, normal breath sounds Abdomen: non tender, soft Extremities: non-tender Edema: no edema noted Arm (L), no edema noted Arm (R), no edema noted Leg (L), no edema noted Leg (R), no edema noted Pedal (L), no edema noted Pedal (R), no edema noted Generalized Neurologic: alert, responsive Skin: warm/dry Lymphatic: normal anterior cervical (L), normal anterior cervical (R), normal posterior cervical (L), normal posterior cervical (R), normal submandibular (L) , normal submandibular (R), normal supraclavicular (L), normal supraclavicular ( R), normal axillary (L), normal axillary (R), normal inguinal (L), normal inguinal (R), normal other Shelby Arrington MD Mar 10, 2018 11:39
[2018-03-10 12:00] VITALS: BP 131/79
--- NOTE | 2018-03-10 13:18 | Cardiac Electrophysiology PN ---
Assessment/Plan Assessment/Plan 1. Atrial fib with RVR. Now tyree episodes. Decrease Cardizem to 90 q8hr Start Eliquis 5 bid if OK with surgeon. 2. Hypertension.On Cardizem 90 tid Avoid NAPOLEON inhibitor and ARB in view of renal failure. 3. Renal failure. Creatinine is 2.1. Avoid Lasix, NAPOLEON inhibitors and angiotensin receptive blockers. 4. Left hip fracture. S/P replacement hip surgery. No prior myocardial infarction or coronary artery disease. EKG showed no acute ischemic changes. Echocardiogram showed Nl EF. 5. Dementia, on Aricept. 6. Hyperlipidemia, on Lipitor. AUBREY RN and Dr. Arrington Subjective Subjective Transferred out of ICU, still in atrial fib. Alert in NAD. Echo Nl EF. Had tyree down to 30s with 3 second pause when they were getting IV on him and when he was vomiting. Objective Last 24 Hour Vital Signs Date Time Temp Pulse Resp B/P (MAP) Pulse Ox O2 Delivery O2 Flow Rate FiO2 03/10/18 12:00 98.0 97 20 131/79 (96) 96 03/10/18 12:00 97 131/79 03/10/18 09:00 Nasal Cannula 2.0 03/10/18 08:33 94 Nasal Cannula 2.0 28 03/10/18 08:33 Nasal Cannula 2.0 28 03/10/18 08:00 97.2 88 20 148/78 (101) 97 03/10/18 08:00 94 03/10/18 06:07 81 03/10/18 04:00 97.5 72 18 129/64 (85) 97 03/10/18 04:00 Nasal Cannula 2.0 03/10/18 03:32 70 03/10/18 00:17 97 03/10/18 00:00 Nasal Cannula 2.0 03/10/18 00:00 98.2 68 19 135/82 (99) 97 03/09/18 23:43 93 03/09/18 21:01 99.1 03/09/18 21:00 99.1 03/09/18 20:14 89 03/09/18 20:07 95 Nasal Cannula 2.0 28 03/09/18 20:07 Nasal Cannula 2.0 28 03/09/18 20:00 100.4 83 18 126/74 (91) 96 03/09/18 20:00 Nasal Cannula 2.0 03/09/18 18:41 99.7 85 20 111/65 (80) 94 18 17:17 87 114/75 03/09/18 17:00 83 26 114/75 (88) 94 18 16:00 Nasal Cannula 2.0 03/09/18 16:00 99.0 73 20 116/75 (89) 95 18 15:27 75 03/09/18 15:00 75 21 115/85 (95) 97 03/09/18 14:00 74 21 127/67 (87) 97 Intake and Output 03/09/18 03/10/18 19:00 07:00 Intake Total 1273.75 ml Output Total 320 ml 200 ml Balance 953.75 ml -200 ml Intake Oral 340 ml IV Total 933.75 ml Output Urine Total 320 ml 200 ml # Bowel Movements 2 Laboratory Tests Test 03/10/18 06:05 White Blood Count 12.7 K/UL (4.8-10.8) H Red Blood Count 3.71 M/UL (4.70-6.10) L Hemoglobin 10.6 G/DL (14.2-18.0) L Hematocrit 32.4 % (42.0-52.0) L Mean Corpuscular Volume 87 FL (80-99) Mean Corpuscular Hemoglobin 28.6 PG (27.0-31.0) Mean Corpuscular Hemoglobin Concent 32.7 G/DL (32.0-36.0) Red Cell Distribution Width 12.2 % (11.6-14.8) Platelet Count 169 K/UL (150-450) Mean Platelet Volume 7.0 FL (6.5-10.1) Neutrophils (%) (Auto) % (45.0-75.0) Lymphocytes (%) (Auto) % (20.0-45.0) Monocytes (%) (Auto) % (1.0-10.0) Eosinophils (%) (Auto) % (0.0-3.0) Basophils (%) (Auto) % (0.0-2.0) Differential Total Cells Counted 100 Neutrophils % (Manual) 83 % (45-75) H Lymphocytes % (Manual) 7 % (20-45) L Monocytes % (Manual) 9 % (1-10) Eosinophils % (Manual) 1 % (0-3) Basophils % (Manual) 0 % (0-2) Band Neutrophils 0 % (0-8) Platelet Estimate Adequate Platelet Morphology Normal Hypochromasia 1+ Sodium Level 137 MMOL/L (136-145) Potassium Level 3.9 MMOL/L (3.5-5.1) Chloride Level 99 MMOL/L (98-107) Carbon Dioxide Level 27 MMOL/L (21-32) Anion Gap 11 mmol/L (5-15) Blood Urea Nitrogen 42 mg/dL (7-18) H Creatinine 2.2 MG/DL (0.55-1.30) H Estimat Glomerular Filtration Rate mL/min (>60) Glucose Level 172 MG/DL (74-106) H Calcium Level 9.0 MG/DL (8.5-10.1) Microbiology Date/Time Source Procedure Growth Status 03/08/18 10:30 Blood Blood Culture - Preliminary NO GROWTH AFTER 24 HOURS Resulted 03/08/18 10:30 Blood Blood Culture - Preliminary NO GROWTH AFTER 24 HOURS Resulted Objective HEAD AND NECK: No JVD LUNGS: Clear. CARDIOVASCULAR: Irreegular S1 and S2 with no gallop or murmur. ABDOMEN: Soft and nontender. EXTREMITIES: 1+ pitting edema. S/P hip surgery. Gary Bay MD Mar 10, 2018 13:18
--- NOTE | 2018-03-10 14:18 | Nephrology Progress Note ---
Assessment/Plan Problem List: (1) CKD (chronic kidney disease) (2) STUART (acute kidney injury) Assessment: no change likely ATN (3) Trochanteric fracture of left femur (4) Afib Plan follow BMP Await Vit D avoid hypotension Subjective Subjective In NAD Objective Objective Last 24 Hour Vital Signs Date Time Temp Pulse Resp B/P (MAP) Pulse Ox O2 Delivery O2 Flow Rate FiO2 03/10/18 12:00 98.0 97 20 131/79 (96) 96 03/10/18 12:00 97 131/79 03/10/18 09:00 Nasal Cannula 2.0 03/10/18 08:33 94 Nasal Cannula 2.0 28 03/10/18 08:33 Nasal Cannula 2.0 28 03/10/18 08:00 97.2 88 20 148/78 (101) 97 03/10/18 08:00 94 03/10/18 06:07 81 03/10/18 04:00 97.5 72 18 129/64 (85) 97 03/10/18 04:00 Nasal Cannula 2.0 03/10/18 03:32 70 03/10/18 00:17 97 03/10/18 00:00 Nasal Cannula 2.0 03/10/18 00:00 98.2 68 19 135/82 (99) 97 03/09/18 23:43 93 03/09/18 21:01 99.1 03/09/18 21:00 99.1 03/09/18 20:14 89 03/09/18 20:07 95 Nasal Cannula 2.0 28 03/09/18 20:07 Nasal Cannula 2.0 28 03/09/18 20:00 100.4 83 18 126/74 (91) 96 03/09/18 20:00 Nasal Cannula 2.0 03/09/18 18:41 99.7 85 20 111/65 (80) 94 03/09/18 17:17 87 114/75 03/09/18 17:00 83 26 114/75 (88) 94 03/09/18 16:00 Nasal Cannula 2.0 03/09/18 16:00 99.0 73 20 116/75 (89) 95 03/09/18 15:27 75 03/09/18 15:00 75 21 115/85 (95) 97 Intake and Output 03/09/18 03/10/18 19:00 07:00 Intake Total 1273.75 ml Output Total 320 ml 200 ml Balance 953.75 ml -200 ml Intake Oral 340 ml IV Total 933.75 ml Output Urine Total 320 ml 200 ml # Bowel Movements 2 Laboratory Tests 03/10/18 06:05: White Blood Count 12.7H, Red Blood Count 3.71L, Hemoglobin 10.6L, Hematocrit 32.4L, Mean Corpuscular Volume 87, Mean Corpuscular Hemoglobin 28.6, Mean Corpuscular Hemoglobin Concent 32.7, Red Cell Distribution Width 12.2, Platelet Count 169, Mean Platelet Volume 7.0, Neutrophils (%) (Auto) , Lymphocytes (%) ( Auto) , Monocytes (%) (Auto) , Eosinophils (%) (Auto) , Basophils (%) (Auto) , Differential Total Cells Counted 100, Neutrophils % (Manual) 83H, Lymphocytes % (Manual) 7L, Monocytes % (Manual) 9, Eosinophils % (Manual) 1, Basophils % ( Manual) 0, Band Neutrophils 0, Platelet Estimate Adequate, Platelet Morphology Normal, Hypochromasia 1+, Sodium Level 137, Potassium Level 3.9, Chloride Level 99, Carbon Dioxide Level 27, Anion Gap 11, Blood Urea Nitrogen 42H, Creatinine 2.2H, Estimat Glomerular Filtration Rate , Glucose Level 172H, Calcium Level 9.0 Height (Feet): 5 Height (Inches): 11.00 Weight (Pounds): 240 Cardiovascular: normal rate Respiratory/Chest: lungs clear Extremities: trace edema Boy Fernandez MD Mar 10, 2018 14:18
[2018-03-10] MEDS: Cefepime HCl 2 GM in D5W 55 ML IVPB SCH (14:35)
--- NOTE | 2018-03-10 16:27 | Infectious Diseases Prog Note ---
Assessment/Plan Problems: (1) Leukocytosis Assessment & Plan: post OP reactive leukocytosis VS UTI , await urine culture , continue cefepime and doxycycline empirically pending cultures . (2) Trochanteric fracture of left femur Assessment & Plan: S/P ORIF, POD2 , continue pain management and pt/ot as per ortho (3) STUART (acute kidney injury) Assessment & Plan: suspect dehydration VS ATN , continue hydration, avoid nephrotoxics, monitor renal function (4) Left hip pain Assessment & Plan: due to the above, continue pain management as needed Subjective Constitutional: Reports: no symptoms HEENT: Reports: no symptoms Respiratory: Reports: no symptoms Breasts: Reports: no symptoms Cardiovascular: Reports: no symptoms Gastrointestinal/Abdominal: Reports: no symptoms Genitourinary: Reports: no symptoms Neurologic: Reports: weakness Psychiatric: Reports: no symptoms Skin: Reports: no symptoms Endocrine: Reports: no symptoms Hematologic: Reports: no symptoms Musculoskeletal: Reports: pain Allergies: Coded Allergies: PENICILLINS (Verified Allergy, Unknown, 03/05/18) Objective Vital Signs Last 24 Hour Vital Signs Date Time Temp Pulse Resp B/P (MAP) Pulse Ox O2 Delivery O2 Flow Rate FiO2 03/10/18 14:35 97 131/79 03/10/18 12:00 89 03/10/18 12:00 98.0 97 20 131/79 (96) 96 03/10/18 12:00 97 131/79 03/10/18 09:00 Nasal Cannula 2.0 03/10/18 08:33 94 Nasal Cannula 2.0 28 03/10/18 08:33 Nasal Cannula 2.0 28 03/10/18 08:00 97.2 88 20 148/78 (101) 97 03/10/18 08:00 94 03/10/18 06:07 81 03/10/18 04:00 97.5 72 18 129/64 (85) 97 03/10/18 04:00 Nasal Cannula 2.0 03/10/18 03:32 70 03/10/18 00:17 97 03/10/18 00:00 Nasal Cannula 2.0 03/10/18 00:00 98.2 68 19 135/82 (99) 97 03/09/18 23:43 93 03/09/18 21:01 99.1 03/09/18 21:00 99.1 03/09/18 20:14 89 03/09/18 20:07 95 Nasal Cannula 2.0 28 03/09/18 20:07 Nasal Cannula 2.0 28 03/09/18 20:00 100.4 83 18 126/74 (91) 96 03/09/18 20:00 Nasal Cannula 2.0 03/09/18 18:41 99.7 85 20 111/65 (80) 94 03/09/18 17:17 87 114/75 03/09/18 17:00 83 26 114/75 (88) 94 Height (Feet): 5 Height (Inches): 11.00 Weight (Pounds): 240 General Appearance: WD/WN, no acute distress HEENT: normocephalic, atraumatic, anicteric, mucous membranes moist, PERRL, EOMI, pharynx normal, supple, no JVD Respiratory/Chest: chest wall non-tender, normal breath sounds, no respiratory distress, no accessory muscle use, decreased breath sounds Cardiovascular: normal peripheral pulses, normal rate, regular rhythm, no gallop/murmur, no JVD Abdomen: normal bowel sounds, soft, non tender, no organomegaly, non distended , no mass, no scars Extremities: no cyanosis, no clubbing, other - edema, left hip and thigh surgical wounds , clean and dry covered with dressings Skin: no rash, no lesions, no ulcers Neurologic/Psychiatric: alert, responsive Lymphatic: no neck adenopathy, no groin adenopathy Musculoskeletal: normal muscle bulk, no effusion Microbiology Date/Time Source Procedure Growth Status 03/08/18 10:30 Blood Blood Culture - Preliminary NO GROWTH AFTER 24 HOURS Resulted 03/08/18 10:30 Blood Blood Culture - Preliminary NO GROWTH AFTER 24 HOURS Resulted Laboratory Tests Test 03/10/18 06:05 White Blood Count 12.7 K/UL (4.8-10.8) H Red Blood Count 3.71 M/UL (4.70-6.10) L Hemoglobin 10.6 G/DL (14.2-18.0) L Hematocrit 32.4 % (42.0-52.0) L Mean Corpuscular Volume 87 FL (80-99) Mean Corpuscular Hemoglobin 28.6 PG (27.0-31.0) Mean Corpuscular Hemoglobin Concent 32.7 G/DL (32.0-36.0) Red Cell Distribution Width 12.2 % (11.6-14.8) Platelet Count 169 K/UL (150-450) Mean Platelet Volume 7.0 FL (6.5-10.1) Neutrophils (%) (Auto) % (45.0-75.0) Lymphocytes (%) (Auto) % (20.0-45.0) Monocytes (%) (Auto) % (1.0-10.0) Eosinophils (%) (Auto) % (0.0-3.0) Basophils (%) (Auto) % (0.0-2.0) Differential Total Cells Counted 100 Neutrophils % (Manual) 83 % (45-75) H Lymphocytes % (Manual) 7 % (20-45) L Monocytes % (Manual) 9 % (1-10) Eosinophils % (Manual) 1 % (0-3) Basophils % (Manual) 0 % (0-2) Band Neutrophils 0 % (0-8) Platelet Estimate Adequate Platelet Morphology Normal Hypochromasia 1+ Sodium Level 137 MMOL/L (136-145) Potassium Level 3.9 MMOL/L (3.5-5.1) Chloride Level 99 MMOL/L (98-107) Carbon Dioxide Level 27 MMOL/L (21-32) Anion Gap 11 mmol/L (5-15) Blood Urea Nitrogen 42 mg/dL (7-18) H Creatinine 2.2 MG/DL (0.55-1.30) H Estimat Glomerular Filtration Rate mL/min (>60) Glucose Level 172 MG/DL (74-106) H Calcium Level 9.0 MG/DL (8.5-10.1) Current Medications Medications (Trade) Dose Ordered Sig/Colin Route PRN Reason Start Time Stop Time Status Last Admin Dose Admin Acetaminophen (Tylenol) 650 mg Q6H PRN ORAL Mild Pain/Temp > 100.5 03/09/18 20:30 04/08/18 20:29 03/09/18 20:31 Acetaminophen/ Hydrocodone Bitart (Wells 5/325) 1 tab Q6H PRN ORAL Severe Pain (Pain Scale 7-10) 03/09/18 19:00 03/12/18 12:59 03/09/18 20:36 Apixaban (Eliquis) 2.5 mg BID ORAL 03/10/18 18:00 04/09/18 17:59 Atorvastatin Calcium (Lipitor) 20 mg BEDTIME ORAL 03/09/18 21:00 04/04/18 20:59 03/09/18 20:31 Carbidopa/Levodopa (Sinemet 25/100) 1 tab THREE TIMES A DAY ORAL 03/10/18 09:00 04/04/18 12:59 03/10/18 12:11 Cefepime HCl 2 gm/ Dextrose 55 ml @ 110 mls/hr Q24H IVPB 03/10/18 15:00 03/16/18 14:59 03/10/18 14:35 Clonidine HCl (Catapres Tab) 0.1 mg Q8H PRN ORAL FOR SBP GREATER THAN 160 03/09/18 19:30 04/04/18 11:29 Dextrose/Sodium Chloride 1,000 ml @ 75 mls/hr [id number] IV 03/09/18 18:30 04/06/18 11:59 03/10/18 07:49 Diltiazem HCl (Cardizem) 90 mg EVERY 8 HOURS ORAL 03/10/18 14:00 04/07/18 17:59 03/10/18 14:35 Donepezil HCl (Aricept) 10 mg QHS ORAL 03/09/18 21:00 04/04/18 20:59 03/09/18 20:31 Doxycycline Hyclate 100 mg/ Dextrose 110 ml @ 110 mls/hr Q12HR IV 03/09/18 21:00 03/16/18 15:59 03/10/18 09:12 Gabapentin (Neurontin) 100 mg DAILY ORAL 03/10/18 09:00 04/05/18 08:59 03/10/18 09:11 Ondansetron HCl (Zofran) 4 mg Q4H PRN IVP Nausea & Vomiting 03/10/18 11:00 04/09/18 10:59 03/10/18 11:05 Quetiapine Fumarate (SEROquel) 25 mg DAILY ORAL 03/10/18 09:00 04/05/18 08:59 03/10/18 09:11 Tramadol HCl (Ultram) 50 mg Q8H PRN ORAL Moderate Pain (Pain Scale 4-6) 03/09/18 21:00 03/12/18 12:59 Venlafaxine HCl (Effexor-XR) 37.5 mg DAILY ORAL 03/10/18 09:00 04/06/18 08:59 03/10/18 09:11 Srini Sam M.D. Mar 10, 2018 16:27
[2018-03-10] MEDS: Eliquis 2.5mg tablet ORAL SCH (17:15)
[2018-03-10 20:00] VITALS: BP 106/66
[2018-03-10] MEDS: Donepezil 10mg tab ORAL SCH (21:05)
[2018-03-10] MEDS: Atorvastatin 20mg tab ORAL SCH (21:05)
[2018-03-11] VITALS: BP 112/86
[2018-03-11 04:00] VITALS: BP 123/68
[2018-03-11] MEDS: dilTIAZem HCl 90mg tab ORAL SCH ×3 (06:24→22:35)
[2018-03-11 07:58] VITALS: BP 135/83
[2018-03-11 08:00] LABS: BASOPHILS % (AUTO) 0.5 % (0.0-2.0); EOSINOPHILS % (AUTO) 1.5 % (0.0-3.0); HEMATOCRIT 30.1 % (42.0-52.0); HEMOGLOBIN 10.1 G/DL (14.2-18.0); LYMPHOCYTES % (AUTO) 7.6 % (20.0-45.0); MEAN CORPUSCULAR VOLUME 88 FL (80-99); MONOCYTES % (AUTO) 9.1 % (1.0-10.0); NEUTROPHILS % (AUTO) 81.4 % (45.0-75.0); PLATELET COUNT 206 K/UL (150-450); RED BLOOD COUNT 3.43 M/UL (4.70-6.10); WHITE BLOOD COUNT 14.7 K/UL (4.8-10.8)
[2018-03-11 08:10] LABS: ANION GAP 9 mmol/L (5-15); BLOOD UREA NITROGEN 47 mg/dL (7-18); CARBON DIOXIDE 28 MMOL/L (21-32); CHLORIDE 102 MMOL/L (98-107); POTASSIUM 3.5 MMOL/L (3.5-5.1); SODIUM 139 MMOL/L (136-145)
[2018-03-11] MEDS: Levodopa/Carbidopa 25/100 tab ORAL SCH ×3 (08:47→17:40)
[2018-03-11] MEDS: Doxycycline Hyclate 100 MG in D5W 110 ML IV SCH ×2 (08:48→20:45)
[2018-03-11] MEDS: Eliquis 2.5mg tablet ORAL SCH ×2 (08:48→17:40)
[2018-03-11] MEDS: Venlafaxine XR 37.5mg cap ORAL SCH (08:48)
--- NOTE | 2018-03-11 09:48 | General Progress Note ---
Assessment/Plan Status: stable Assessment/Plan 1. New onset A. fib - On diltiazem 90 mg PO q 8 hrs. Rate controlled with oral diltiazem. On Eliquis 2.5 mg bid. 2. Lt hip intertrochanteric fracture, status post mechanical fall - Post op day 5 - PT/OT per surgery. D/C planning to [facility] tomorrow. 3. Hypertension - on Diltiazem 90 mg po q 8 hrs. 4. Hyperlipidemia - cont lipitor 20 mg one po qhs. 5. Dementia - cont Aricept 10 mg po qhs. 6. Depression - cont effexor 75 mg 1/2 po daily. 7. Low extremity edema - improved. 8. Parkinson disease. Cont Sinemet 25/100 one po tid. 9. Acute on chronic renal failure - stable. 10. Leukocytosis - CXR negative. all cultures negative so far. ID following as well. 11. constipation - start lactulose 30 mg po bid for constipation. Enema today. 12. nausea and vomiting - improved. on zofran 4 mg IVP q 4 hrs prn. Subjective Date patient seen: Mar 11, 2018 Time patient seen: 08:45 Constitutional: Reports: weakness HEENT: Reports: no symptoms Cardiovascular: Reports: no symptoms Respiratory: Reports: no symptoms Gastrointestinal/Abdominal: Reports: no symptoms Genitourinary: Reports: no symptoms Neurologic/Psychiatric: Reports: no symptoms Endocrine: Reports: no symptoms Hematologic/Lymphatic: Reports: no symptoms Allergies: Coded Allergies: PENICILLINS (Verified Allergy, Unknown, 03/05/18) Subjective He is s/p Lt hip surgery. on cardiazem for A fib. afebrile. no sob or chest pain. cultures negative so far. Objective Last 24 Hour Vital Signs Date Time Temp Pulse Resp B/P (MAP) Pulse Ox O2 Delivery O2 Flow Rate FiO2 03/11/18 07:58 97.3 89 20 135/83 (100) 96 03/11/18 06:24 85 03/11/18 04:00 96.8 92 20 123/68 (86) 96 03/11/18 03:51 90 03/11/18 00:00 97.9 90 20 112/86 (95) 96 03/10/18 23:25 92 03/10/18 21:05 86 105/66 03/10/18 21:00 Nasal Cannula 2.0 03/10/18 20:00 98.2 86 20 106/66 (79) 98 03/10/18 19:12 89 03/10/18 16:00 76 03/10/18 14:35 97 131/79 03/10/18 12:00 89 03/10/18 12:00 98.0 97 20 131/79 (96) 96 03/10/18 12:00 97 131/79 Intake and Output 03/10/18 03/11/18 18:59 06:59 Intake Total 785 ml Output Total 200 ml Balance -200 ml 785 ml IV Total 785 ml Output Urine Total 200 ml # Voids 2 Laboratory Tests 03/11/18 06:00: White Blood Count 14.7H, Red Blood Count 3.43L, Hemoglobin 10.1L, Hematocrit 30.1L, Mean Corpuscular Volume 88, Mean Corpuscular Hemoglobin 29.3, Mean Corpuscular Hemoglobin Concent 33.4, Red Cell Distribution Width 12.0, Platelet Count 206, Mean Platelet Volume 6.8, Neutrophils (%) (Auto) 81.4H, Lymphocytes ( %) (Auto) 7.6L, Monocytes (%) (Auto) 9.1, Eosinophils (%) (Auto) 1.5, Basophils (%) (Auto) 0.5, Sodium Level 139, Potassium Level 3.5, Chloride Level 102, Carbon Dioxide Level 28, Anion Gap 9, Blood Urea Nitrogen 47H, Creatinine 2.0H, Estimat Glomerular Filtration Rate , Glucose Level 150H, Calcium Level 9.0 Height (Feet): 5 Height (Inches): 11.00 Weight (Pounds): 240 General Appearance: no apparent distress, alert EENT: normal ENT inspection Neck: non-tender, supple Cardiovascular: normal rate, regular rhythm Respiratory/Chest: chest wall non-tender, lungs clear, normal breath sounds Abdomen: non tender, distended Extremities: normal range of motion, non-tender Edema: no edema noted Arm (L), no edema noted Arm (R); 1+ Leg (L), 1+ Leg (R); no edema noted Pedal (L), no edema noted Pedal (R), no edema noted Generalized Neurologic: alert, responsive Skin: warm/dry Lymphatic: normal anterior cervical (L), normal anterior cervical (R), normal posterior cervical (L), normal posterior cervical (R), normal submandibular (L) , normal submandibular (R), normal supraclavicular (L), normal supraclavicular ( R), normal axillary (L), normal axillary (R), normal inguinal (L), normal inguinal (R), normal other Shelby Arrington MD Mar 11, 2018 09:48
[2018-03-11] MEDS ORDERED: Lactulose 20gm/30ml UDC ORAL SCH (10:00)
[2018-03-11] MEDS ORDERED: Fleet's Enema 133ml RECTAL SCH (10:30)
[2018-03-11] MEDS: D5 1/2NS 1,000 ML IV SCH (10:33)
[2018-03-11] MEDS: Norco 5mg/325mg tab ORAL PRN (10:39)
[2018-03-11 12:00] VITALS: BP 135/76
--- NOTE | 2018-03-11 12:26 | Nephrology Progress Note ---
Assessment/Plan Problem List: (1) CKD (chronic kidney disease) (2) STUART (acute kidney injury) Assessment: slightly better likely ATN (3) Trochanteric fracture of left femur (4) Afib Plan follow BMP Await Vit D DC IVF Subjective Subjective In NAD Objective Objective Last 24 Hour Vital Signs Date Time Temp Pulse Resp B/P (MAP) Pulse Ox O2 Delivery O2 Flow Rate FiO2 03/11/18 11:09 97.3 03/11/18 09:00 Nasal Cannula 2.0 03/11/18 08:00 86 03/11/18 07:58 97.3 89 20 135/83 (100) 96 03/11/18 06:24 85 03/11/18 04:00 96.8 92 20 123/68 (86) 96 03/11/18 03:51 90 03/11/18 00:00 97.9 90 20 112/86 (95) 96 03/10/18 23:25 92 03/10/18 21:05 86 105/66 03/10/18 21:00 Nasal Cannula 2.0 03/10/18 20:00 98.2 86 20 106/66 (79) 98 03/10/18 19:12 89 03/10/18 16:00 76 03/10/18 14:35 97 131/79 Intake and Output 03/10/18 03/11/18 19:00 07:00 Intake Total 785 ml Output Total 200 ml Balance -200 ml 785 ml IV Total 785 ml Output Urine Total 200 ml # Voids 2 Laboratory Tests 03/11/18 06:00: White Blood Count 14.7H, Red Blood Count 3.43L, Hemoglobin 10.1L, Hematocrit 30.1L, Mean Corpuscular Volume 88, Mean Corpuscular Hemoglobin 29.3, Mean Corpuscular Hemoglobin Concent 33.4, Red Cell Distribution Width 12.0, Platelet Count 206, Mean Platelet Volume 6.8, Neutrophils (%) (Auto) 81.4H, Lymphocytes ( %) (Auto) 7.6L, Monocytes (%) (Auto) 9.1, Eosinophils (%) (Auto) 1.5, Basophils (%) (Auto) 0.5, Sodium Level 139, Potassium Level 3.5, Chloride Level 102, Carbon Dioxide Level 28, Anion Gap 9, Blood Urea Nitrogen 47H, Creatinine 2.0H, Estimat Glomerular Filtration Rate , Glucose Level 150H, Calcium Level 9.0 Height (Feet): 5 Height (Inches): 11.00 Weight (Pounds): 243 Cardiovascular: normal rate Respiratory/Chest: lungs clear Extremities: moderate edema Boy Fernandez MD Mar 11, 2018 12:26
--- NOTE | 2018-03-11 13:26 | Cardiac Electrophysiology PN ---
Assessment/Plan Assessment/Plan 1. Atrial fib with RVR. Now tyree episodes. On Cardizem 90 tid and Eliquis 2.5 bid 2. Hypertension.On Cardizem 90 tid Avoid ACEI and ARB in view of renal failure. 3. Renal failure. Creatinine is 2.1. Avoid Lasix, NAPOLEON inhibitors and ARB 4. Left hip fracture. S/P replacement hip surgery. No prior myocardial infarction or coronary artery disease. EKG showed no acute ischemic changes. Echocardiogram showed Nl EF. 5. Dementia, on Aricept. 6. Hyperlipidemia, on Lipitor. DW RN Subjective Subjective Still in atrial fib but controlled. No further pauses. Alert in NAD. Echo Nl EF. Objective Last 24 Hour Vital Signs Date Time Temp Pulse Resp B/P (MAP) Pulse Ox O2 Delivery O2 Flow Rate FiO2 03/11/18 12:00 98.7 59 20 135/76 (95) 96 03/11/18 11:09 97.3 03/11/18 09:00 Nasal Cannula 2.0 03/11/18 08:00 86 03/11/18 07:58 97.3 89 20 135/83 (100) 96 03/11/18 06:24 85 03/11/18 04:00 96.8 92 20 123/68 (86) 96 03/11/18 03:51 90 03/11/18 00:00 97.9 90 20 112/86 (95) 96 03/10/18 23:25 92 03/10/18 21:05 86 105/66 03/10/18 21:00 Nasal Cannula 2.0 03/10/18 20:00 98.2 86 20 106/66 (79) 98 03/10/18 19:12 89 03/10/18 16:00 76 03/10/18 14:35 97 131/79 Intake and Output 03/10/18 03/11/18 19:00 07:00 Intake Total 785 ml Output Total 200 ml Balance -200 ml 785 ml IV Total 785 ml Output Urine Total 200 ml # Voids 2 Laboratory Tests Test 03/11/18 06:00 White Blood Count 14.7 K/UL (4.8-10.8) H Red Blood Count 3.43 M/UL (4.70-6.10) L Hemoglobin 10.1 G/DL (14.2-18.0) L Hematocrit 30.1 % (42.0-52.0) L Mean Corpuscular Volume 88 FL (80-99) Mean Corpuscular Hemoglobin 29.3 PG (27.0-31.0) Mean Corpuscular Hemoglobin Concent 33.4 G/DL (32.0-36.0) Red Cell Distribution Width 12.0 % (11.6-14.8) Platelet Count 206 K/UL (150-450) Mean Platelet Volume 6.8 FL (6.5-10.1) Neutrophils (%) (Auto) 81.4 % (45.0-75.0) H Lymphocytes (%) (Auto) 7.6 % (20.0-45.0) L Monocytes (%) (Auto) 9.1 % (1.0-10.0) Eosinophils (%) (Auto) 1.5 % (0.0-3.0) Basophils (%) (Auto) 0.5 % (0.0-2.0) Sodium Level 139 MMOL/L (136-145) Potassium Level 3.5 MMOL/L (3.5-5.1) Chloride Level 102 MMOL/L (98-107) Carbon Dioxide Level 28 MMOL/L (21-32) Anion Gap 9 mmol/L (5-15) Blood Urea Nitrogen 47 mg/dL (7-18) H Creatinine 2.0 MG/DL (0.55-1.30) H Estimat Glomerular Filtration Rate mL/min (>60) Glucose Level 150 MG/DL (74-106) H Calcium Level 9.0 MG/DL (8.5-10.1) Objective HEAD AND NECK: No JVD LUNGS: Clear. CARDIOVASCULAR: Irregular S1 and S2 with no gallop or murmur. ABDOMEN: Soft and nontender. EXTREMITIES: 1+ pitting edema. S/P hip surgery. Gary Bay MD Mar 11, 2018 13:26
[2018-03-11] MEDS: Cefepime HCl 2 GM in D5W 55 ML IVPB SCH (14:49)
--- NOTE | 2018-03-11 14:54 | Infectious Diseases Prog Note ---
Assessment/Plan Problems: (1) Leukocytosis Assessment & Plan: suspect post OP reactive leukocytosis VS UTI , await urine culture , continue cefepime and doxycycline empirically pending cultures . monitor WBC (2) Trochanteric fracture of left femur Assessment & Plan: S/P ORIF, POD2 , continue pain management and pt/ot as per ortho (3) STUART (acute kidney injury) Assessment & Plan: suspect dehydration VS ATN , continue hydration, avoid nephrotoxics, monitor renal function (4) Left hip pain Assessment & Plan: due to the above, continue pain management as needed Subjective Constitutional: Reports: no symptoms HEENT: Reports: no symptoms Respiratory: Reports: no symptoms Breasts: Reports: no symptoms Cardiovascular: Reports: no symptoms Gastrointestinal/Abdominal: Reports: no symptoms Genitourinary: Reports: no symptoms Neurologic: Reports: weakness Psychiatric: Reports: no symptoms Skin: Reports: no symptoms Endocrine: Reports: no symptoms Hematologic: Reports: no symptoms Musculoskeletal: Reports: pain Allergies: Coded Allergies: PENICILLINS (Verified Allergy, Unknown, 03/05/18) Objective Vital Signs Last 24 Hour Vital Signs Date Time Temp Pulse Resp B/P (MAP) Pulse Ox O2 Delivery O2 Flow Rate FiO2 03/11/18 13:52 59 135/76 03/11/18 12:00 98.7 59 20 135/76 (95) 96 03/11/18 12:00 92 03/11/18 11:09 97.3 03/11/18 09:00 Nasal Cannula 2.0 03/11/18 08:00 86 03/11/18 07:58 97.3 89 20 135/83 (100) 96 03/11/18 06:24 85 03/11/18 04:00 96.8 92 20 123/68 (86) 96 03/11/18 03:51 90 03/11/18 00:00 97.9 90 20 112/86 (95) 96 03/10/18 23:25 92 03/10/18 21:05 86 105/66 03/10/18 21:00 Nasal Cannula 2.0 03/10/18 20:00 98.2 86 20 106/66 (79) 98 03/10/18 19:12 89 03/10/18 16:00 76 Height (Feet): 5 Height (Inches): 11.00 Weight (Pounds): 243 General Appearance: WD/WN, no acute distress HEENT: normocephalic, atraumatic, anicteric, mucous membranes moist, PERRL Respiratory/Chest: chest wall non-tender, lungs clear, normal breath sounds, no respiratory distress, no accessory muscle use Cardiovascular: normal peripheral pulses, normal rate, regular rhythm, no gallop/murmur, no JVD Abdomen: normal bowel sounds, soft, non tender, no organomegaly, non distended , no mass, no scars Genitourinary: normal external genitalia Extremities: no cyanosis, no clubbing Skin: no rash, no lesions, no ulcers Neurologic/Psychiatric: alert, oriented x 3, responsive Lymphatic: no neck adenopathy, no groin adenopathy Musculoskeletal: normal muscle bulk, no effusion, other - left thigh surgical wounds clean and dry Laboratory Tests Test 03/11/18 06:00 White Blood Count 14.7 K/UL (4.8-10.8) H Red Blood Count 3.43 M/UL (4.70-6.10) L Hemoglobin 10.1 G/DL (14.2-18.0) L Hematocrit 30.1 % (42.0-52.0) L Mean Corpuscular Volume 88 FL (80-99) Mean Corpuscular Hemoglobin 29.3 PG (27.0-31.0) Mean Corpuscular Hemoglobin Concent 33.4 G/DL (32.0-36.0) Red Cell Distribution Width 12.0 % (11.6-14.8) Platelet Count 206 K/UL (150-450) Mean Platelet Volume 6.8 FL (6.5-10.1) Neutrophils (%) (Auto) 81.4 % (45.0-75.0) H Lymphocytes (%) (Auto) 7.6 % (20.0-45.0) L Monocytes (%) (Auto) 9.1 % (1.0-10.0) Eosinophils (%) (Auto) 1.5 % (0.0-3.0) Basophils (%) (Auto) 0.5 % (0.0-2.0) Sodium Level 139 MMOL/L (136-145) Potassium Level 3.5 MMOL/L (3.5-5.1) Chloride Level 102 MMOL/L (98-107) Carbon Dioxide Level 28 MMOL/L (21-32) Anion Gap 9 mmol/L (5-15) Blood Urea Nitrogen 47 mg/dL (7-18) H Creatinine 2.0 MG/DL (0.55-1.30) H Estimat Glomerular Filtration Rate mL/min (>60) Glucose Level 150 MG/DL (74-106) H Calcium Level 9.0 MG/DL (8.5-10.1) Current Medications Medications (Trade) Dose Ordered Sig/Colin Route PRN Reason Start Time Stop Time Status Last Admin Dose Admin Acetaminophen (Tylenol) 650 mg Q6H PRN ORAL Mild Pain/Temp > 100.5 03/09/18 20:30 04/08/18 20:29 03/10/18 21:06 Acetaminophen/ Hydrocodone Bitart ([place] 5/325) 1 tab Q6H PRN ORAL Severe Pain (Pain Scale 7-10) 03/09/18 19:00 03/12/18 12:59 03/11/18 10:39 Apixaban (Eliquis) 2.5 mg BID ORAL 03/10/18 18:00 04/09/18 17:59 03/11/18 08:48 Atorvastatin Calcium (Lipitor) 20 mg BEDTIME ORAL 03/09/18 21:00 04/04/18 20:59 03/10/18 21:05 Carbidopa/Levodopa (Sinemet 25/100) 1 tab THREE TIMES A DAY ORAL 03/10/18 09:00 04/04/18 12:59 03/11/18 13:53 Cefepime HCl 2 gm/ Dextrose 55 ml @ 110 mls/hr Q24H IVPB 03/10/18 15:00 03/16/18 14:59 03/11/18 14:49 Clonidine HCl (Catapres Tab) 0.1 mg Q8H PRN ORAL FOR SBP GREATER THAN 160 03/09/18 19:30 04/04/18 11:29 Diltiazem HCl (Cardizem) 90 mg EVERY 8 HOURS ORAL 03/10/18 14:00 04/07/18 17:59 03/11/18 13:52 Donepezil HCl (Aricept) 10 mg QHS ORAL 03/09/18 21:00 04/04/18 20:59 03/10/18 21:05 Doxycycline Hyclate 100 mg/ Dextrose 110 ml @ 110 mls/hr Q12HR IV 03/09/18 21:00 03/16/18 15:59 03/11/18 08:48 Gabapentin (Neurontin) 100 mg DAILY ORAL 03/10/18 09:00 04/05/18 08:59 03/11/18 08:48 Lactulose (Cephulac) 30 gm BID ORAL 03/11/18 18:00 04/10/18 17:59 Ondansetron HCl (Zofran) 4 mg Q4H PRN IVP Nausea & Vomiting 03/10/18 11:00 04/09/18 10:59 03/10/18 11:05 Quetiapine Fumarate (SEROquel) 25 mg DAILY ORAL 03/10/18 09:00 04/05/18 08:59 03/11/18 08:47 Tramadol HCl (Ultram) 50 mg Q8H PRN ORAL Moderate Pain (Pain Scale 4-6) 03/09/18 21:00 03/12/18 12:59 Venlafaxine HCl (Effexor-XR) 37.5 mg DAILY ORAL 03/10/18 09:00 04/06/18 08:59 03/11/18 08:48 Srini Sam M.D. Mar 11, 2018 14:54
[2018-03-11 16:00] VITALS: BP 123/69
[2018-03-11] MEDS: Lactulose 20gm/30ml UDC ORAL SCH (17:41)
[2018-03-11 20:00] VITALS: BP 100/62
[2018-03-11] MEDS: Atorvastatin 20mg tab ORAL SCH (20:45)
[2018-03-11] MEDS: Donepezil 10mg tab ORAL SCH (20:45)
[2018-03-12] VITALS: BP 114/54
[2018-03-12 04:00] VITALS: BP 127/79
[2018-03-12] MEDS: dilTIAZem HCl 90mg tab ORAL SCH ×2 (06:09→13:20)
[2018-03-12 07:02] LABS: ANION GAP 11 mmol/L (5-15); BLOOD UREA NITROGEN 47 mg/dL (7-18); CALCIUM 8.9 MG/DL (8.5-10.1); CARBON DIOXIDE 25 MMOL/L (21-32); CHLORIDE 103 MMOL/L (98-107); CREATININE 1.8 MG/DL (0.55-1.30); SODIUM 139 MMOL/L (136-145)
[2018-03-12 07:18] LABS: EOSINOPHILS % (AUTO) 3.3 % (0.0-3.0); HEMOGLOBIN 10.3 G/DL (14.2-18.0); LYMPHOCYTES % (AUTO) 8.9 % (20.0-45.0); MEAN CORPUSCULAR VOLUME 87 FL (80-99); MONOCYTES % (AUTO) 8.9 % (1.0-10.0); NEUTROPHILS % (AUTO) 77.8 % (45.0-75.0); PLATELET COUNT 226 K/UL (150-450); RED BLOOD COUNT 3.44 M/UL (4.70-6.10); RED CELL DISTRIBUTION WIDTH 12.3 % (11.6-14.8); WHITE BLOOD COUNT 12.3 K/UL (4.8-10.8)
[2018-03-12 08:00] VITALS: BP 122/84
--- NOTE | 2018-03-12 08:42 | Physician Query ---
--------- THIS DOCUMENT IS A PERMANENT PART OF THE MEDICAL RECORD --------- PLEASE COMPLETE THE DOCUMENT BEFORE SIGNING Dear Dr. Sam Date: 03/12 Circular Saw Operator/CDS Name: Jesús Callaway Circular Saw Operator / CDS Phone # [phone] Exercise your independent professional judgment when responding to query. Question asked do not imply a particular answer is desired/expected Clinical Documentation States: Patient is admittedwith fracture of hip and STAURT. Consult and progress notes documents STUART: dehydration vs ATN. Clinical Findings Show: Since admission: Creatinine levels: 1.9, 2.5, 2.1, 2.2, 2.0, 1.8. BUN level: 25-47 Treatment: IV hydration Can you please clarify the status of dehydration and ATN? [ ] Patient has both ATN and dehydration. [ ] Patient has only ATN [ ] Patient has only dehydration [ ] None present [ ] Others: [ ] Clinically Undeterminable Condition Present on Admission: [ ] Yes [ ] No [ ] Clinically Undeterminable Please also document in your Progress Notes and/or Discharge Summary and indicate if the condition was present on admission. Pedro WHITE
--- NOTE | 2018-03-12 08:53 | General Progress Note ---
Assessment/Plan Status: stable Assessment/Plan 1. New onset A. fib - On diltiazem 90 mg PO q 8 hrs. Rate controlled with oral diltiazem. On Eliquis 2.5 mg bid. 2. Lt hip intertrochanteric fracture, status post mechanical fall - Post op day 6 - PT/OT per surgery. D/C planning to [facility] today. 3. Hypertension - on Diltiazem 90 mg po q 8 hrs. 4. Hyperlipidemia - cont lipitor 20 mg one po qhs. 5. Dementia - cont Aricept 10 mg po qhs. 6. Depression - cont effexor 75 mg 1/2 po daily. 7. Low extremity edema - improved. 8. Parkinson disease. Cont Sinemet 25/100 one po tid. 9. Acute on chronic renal failure - stable. 10. Leukocytosis - CXR negative. all cultures negative so far. ID following as well. 11. constipation - cont lactulose 30 mg po bid for constipation. 12. nausea and vomiting - resolved. on zofran 4 mg IVP q 4 hrs prn. 13. Hypokalemia - replace potassium today. Subjective Date patient seen: Mar 12, 2018 Time patient seen: 08:40 Constitutional: Reports: weakness HEENT: Reports: no symptoms Cardiovascular: Reports: no symptoms Respiratory: Reports: no symptoms Gastrointestinal/Abdominal: Reports: no symptoms Genitourinary: Reports: no symptoms Neurologic/Psychiatric: Reports: no symptoms Endocrine: Reports: no symptoms Hematologic/Lymphatic: Reports: no symptoms Allergies: Coded Allergies: PENICILLINS (Verified Allergy, Unknown, 03/05/18) Subjective He is s/p Lt hip surgery. on cardiazem for A fib. afebrile. no sob or chest pain. cultures negative so far. Objective Last 24 Hour Vital Signs Date Time Temp Pulse Resp B/P (MAP) Pulse Ox O2 Delivery O2 Flow Rate FiO2 03/12/18 06:09 98 03/12/18 04:00 98.2 99 20 127/79 (95) 96 03/12/18 03:20 97 03/12/18 00:00 97.3 101 18 114/54 (74) 97 03/11/18 23:27 95 03/11/18 22:35 102 03/11/18 21:32 95 Nasal Cannula 2.0 28 11/19/18 21:32 Nasal Cannula 2.0 28 03/11/18 21:00 Nasal Cannula 2.0 03/11/18 20:00 98.7 93 18 100/62 (75) 98 03/11/18 19:03 92 03/11/18 16:00 97.2 77 20 123/69 (87) 93 03/11/18 16:00 92 03/11/18 13:52 59 135/76 03/11/18 12:00 98.7 59 20 135/76 (95) 96 03/11/18 12:00 92 03/11/18 11:09 97.3 03/11/18 09:00 Nasal Cannula 2.0 Intake and Output 03/11/18 03/12/18 18:59 06:59 Intake Total 725 ml Output Total 700 ml Balance 25 ml Intake Oral 560 ml IV Total 165 ml Output Urine Total 700 ml # Bowel Movements 2 3 Laboratory Tests 03/12/18 06:20: White Blood Count 12.3H, Red Blood Count 3.44L, Hemoglobin 10.3L, Hematocrit 30.0L, Mean Corpuscular Volume 87, Mean Corpuscular Hemoglobin 29.8, Mean Corpuscular Hemoglobin Concent 34.1, Red Cell Distribution Width 12.3, Platelet Count 226, Mean Platelet Volume 5.9L, Neutrophils (%) (Auto) 77.8H, Lymphocytes (%) (Auto) 8.9L, Monocytes (%) (Auto) 8.9, Eosinophils (%) (Auto) 3.3H, Basophils (%) (Auto) 1.0, Sodium Level 139, Potassium Level 3.0L, Chloride Level 103, Carbon Dioxide Level 25, Anion Gap 11, Blood Urea Nitrogen 47H, Creatinine 1.8H, Estimat Glomerular Filtration Rate , Glucose Level 114H, Calcium Level 8.9 Height (Feet): 5 Height (Inches): 11.00 Weight (Pounds): 243 General Appearance: no apparent distress, alert Neck: non-tender, normal alignment, supple Cardiovascular: normal rate, regular rhythm Respiratory/Chest: lungs clear, normal breath sounds Abdomen: normal bowel sounds, non tender, soft Extremities: normal range of motion, non-tender Edema: no edema noted Arm (L), no edema noted Arm (R), no edema noted Leg (L), no edema noted Leg (R), no edema noted Pedal (L), no edema noted Pedal (R), no edema noted Generalized Neurologic: alert, responsive Skin: warm/dry Lymphatic: normal anterior cervical (L), normal anterior cervical (R), normal posterior cervical (L), normal posterior cervical (R), normal submandibular (L) , normal submandibular (R), normal supraclavicular (L), normal supraclavicular ( R), normal axillary (L), normal axillary (R), normal inguinal (L), normal inguinal (R), normal other Shelby Arrington MD Mar 12, 2018 08:53
[2018-03-12] MEDS ORDERED: ACETAMINOPHEN325 M1 ORAL (08:54)
[2018-03-12] MEDS ORDERED: TRAMADOL HCL50 MG ORAL (09:02)
[2018-03-12] MEDS ORDERED: SEROQUEL25 MG ORAL (09:02)
[2018-03-12] MEDS ORDERED: DONEPEZIL HCL10 MG ORAL (09:02)
[2018-03-12] MEDS ORDERED: LIPITOR20 MG ORAL (09:02)
[2018-03-12] MEDS ORDERED: ELIQUIS2.5 MG ORAL (09:02)
[2018-03-12] MEDS ORDERED: LACTULOSE20 GM/301 ORAL (09:02)
[2018-03-12] MEDS ORDERED: NORCO 5-325 TA1 EACH ORAL (09:02)
[2018-03-12] MEDS ORDERED: EFFEXOR-XR37.5 MG ORAL (09:02)
[2018-03-12] MEDS ORDERED: CARDIZEM90 MG ORAL (09:02)
[2018-03-12] MEDS ORDERED: GABAPENTIN100 MG ORAL (09:02)
[2018-03-12] MEDS: Levodopa/Carbidopa 25/100 tab ORAL SCH ×3 (09:26→17:11)
[2018-03-12] MEDS: Venlafaxine XR 37.5mg cap ORAL SCH (09:27)
[2018-03-12] MEDS: Norco 5mg/325mg tab ORAL PRN (09:27)
[2018-03-12] MEDS: Eliquis 2.5mg tablet ORAL SCH ×2 (09:27→17:11)
[2018-03-12] MEDS: Lactulose 20gm/30ml UDC ORAL SCH ×2 (09:28→17:11)
--- NOTE | 2018-03-12 10:30 | Cardiac Electrophysiology PN ---
Assessment/Plan Assessment/Plan 1. Atrial fib with RVR. On Cardizem 90 tid and Eliquis 2.5 bid 2. Hypertension. On Cardizem 90 tid Avoid ACEI and ARB in view of renal failure. 3. Renal failure. Creatinine is 2.1. Avoid Lasix, NAPOLEON inhibitors and ARB 4. Left hip fracture. S/P replacement hip surgery. No prior myocardial infarction or coronary artery disease. EKG showed no acute ischemic changes. Echocardiogram showed Nl EF. 5. Dementia, on Aricept. 6. Hyperlipidemia, on Lipitor. DW RN DC pending Subjective Subjective In atrial fib 80-90s. No further pauses. Alert in NAD. Objective Last 24 Hour Vital Signs Date Time Temp Pulse Resp B/P (MAP) Pulse Ox O2 Delivery O2 Flow Rate FiO2 03/12/18 08:00 97.1 98 18 122/84 (97) 93 03/12/18 06:09 98 03/12/18 04:00 98.2 99 20 127/79 (95) 96 03/12/18 03:20 97 03/12/18 00:00 97.3 101 18 114/54 (74) 97 03/11/18 23:27 95 03/11/18 22:35 102 03/11/18 21:32 95 Nasal Cannula 2.0 28 03/11/18 21:32 Nasal Cannula 2.0 28 03/11/18 21:00 Nasal Cannula 2.0 03/11/18 20:00 98.7 93 18 100/62 (75) 98 03/11/18 19:03 92 03/11/18 16:00 97.2 77 20 123/69 (87) 93 03/11/18 16:00 92 03/11/18 13:52 59 135/76 03/11/18 12:00 98.7 59 20 135/76 (95) 96 03/11/18 12:00 92 03/11/18 11:09 97.3 Intake and Output 03/11/18 03/12/18 18:59 06:59 Intake Total 725 ml Output Total 700 ml Balance 25 ml Intake Oral 560 ml IV Total 165 ml Output Urine Total 700 ml # Bowel Movements 2 3 Laboratory Tests Test 03/12/18 06:20 White Blood Count 12.3 K/UL (4.8-10.8) H Red Blood Count 3.44 M/UL (4.70-6.10) L Hemoglobin 10.3 G/DL (14.2-18.0) L Hematocrit 30.0 % (42.0-52.0) L Mean Corpuscular Volume 87 FL (80-99) Mean Corpuscular Hemoglobin 29.8 PG (27.0-31.0) Mean Corpuscular Hemoglobin Concent 34.1 G/DL (32.0-36.0) Red Cell Distribution Width 12.3 % (11.6-14.8) Platelet Count 226 K/UL (150-450) Mean Platelet Volume 5.9 FL (6.5-10.1) L Neutrophils (%) (Auto) 77.8 % (45.0-75.0) H Lymphocytes (%) (Auto) 8.9 % (20.0-45.0) L Monocytes (%) (Auto) 8.9 % (1.0-10.0) Eosinophils (%) (Auto) 3.3 % (0.0-3.0) H Basophils (%) (Auto) 1.0 % (0.0-2.0) Sodium Level 139 MMOL/L (136-145) Potassium Level 3.0 MMOL/L (3.5-5.1) L Chloride Level 103 MMOL/L (98-107) Carbon Dioxide Level 25 MMOL/L (21-32) Anion Gap 11 mmol/L (5-15) Blood Urea Nitrogen 47 mg/dL (7-18) H Creatinine 1.8 MG/DL (0.55-1.30) H Estimat Glomerular Filtration Rate mL/min (>60) Glucose Level 114 MG/DL (74-106) H Calcium Level 8.9 MG/DL (8.5-10.1) Objective HEAD AND NECK: No JVD LUNGS: Clear. CARDIOVASCULAR: Irregular S1 and S2 with no gallop or murmur. ABDOMEN: Soft and nontender. EXTREMITIES: 1+ pitting edema. S/P hip surgery. Gary Bay MD Mar 12, 2018 10:30
[2018-03-12 12:00] VITALS: BP 131/71
[2018-03-12] MEDS: Doxycycline Hyclate 100 MG in D5W 110 ML IV SCH (12:04)
--- NOTE | 2018-03-12 12:09 | Nephrology Progress Note ---
Assessment/Plan Problem List: (1) CKD (chronic kidney disease) (2) STUART (acute kidney injury) Assessment: slightly better likely ATN (3) Trochanteric fracture of left femur (4) Afib (5) Hypokalemia Plan Replete K follow BMP Await Vit D Subjective Subjective In NAD Objective Objective Last 24 Hour Vital Signs Date Time Temp Pulse Resp B/P (MAP) Pulse Ox O2 Delivery O2 Flow Rate FiO2 03/12/18 09:00 Nasal Cannula 2.0 03/12/18 08:00 93 03/12/18 08:00 97.1 98 18 122/84 (97) 93 03/12/18 06:09 98 03/12/18 04:00 98.2 99 20 127/79 (95) 96 03/12/18 03:20 97 03/12/18 00:00 97.3 101 18 114/54 (74) 97 03/11/18 23:27 95 03/11/18 22:35 102 03/11/18 21:32 95 Nasal Cannula 2.0 28 03/11/18 21:32 Nasal Cannula 2.0 28 03/11/18 21:00 Nasal Cannula 2.0 03/11/18 20:00 98.7 93 18 100/62 (75) 98 03/11/18 19:03 92 03/11/18 16:00 97.2 77 20 123/69 (87) 93 03/11/18 16:00 92 03/11/18 13:52 59 135/76 Intake and Output 03/11/18 03/12/18 18:59 06:59 Intake Total 725 ml Output Total 700 ml Balance 25 ml Intake Oral 560 ml IV Total 165 ml Output Urine Total 700 ml # Bowel Movements 2 3 Laboratory Tests 03/12/18 06:20: White Blood Count 12.3H, Red Blood Count 3.44L, Hemoglobin 10.3L, Hematocrit 30.0L, Mean Corpuscular Volume 87, Mean Corpuscular Hemoglobin 29.8, Mean Corpuscular Hemoglobin Concent 34.1, Red Cell Distribution Width 12.3, Platelet Count 226, Mean Platelet Volume 5.9L, Neutrophils (%) (Auto) 77.8H, Lymphocytes (%) (Auto) 8.9L, Monocytes (%) (Auto) 8.9, Eosinophils (%) (Auto) 3.3H, Basophils (%) (Auto) 1.0, Sodium Level 139, Potassium Level 3.0L, Chloride Level 103, Carbon Dioxide Level 25, Anion Gap 11, Blood Urea Nitrogen 47H, Creatinine 1.8H, Estimat Glomerular Filtration Rate , Glucose Level 114H, Calcium Level 8.9 Height (Feet): 5 Height (Inches): 11.00 Weight (Pounds): 243 Respiratory/Chest: lungs clear Abdomen: soft Extremities: other - no edema Boy Fernandez MD Mar 12, 2018 12:09
[2018-03-12] MEDS: Cefepime HCl 2 GM in D5W 55 ML IVPB SCH (14:05)
--- NOTE | 2018-03-12 15:08 | Diagnostic Imaging Report ---
Indication: Pain, hip fracture. Technique: Intraoperative images from orthopedic surgery Operating physician: Nilay Total fluoroscopy time 39.3 seconds Total fluoroscopy dose 7.04 mGy Comparison: Pelvis radiographs 03/05/2018 Findings: Intraoperative images submitted for archival the PACS. Images demonstrate open reduction and fixation of the intertrochanteric fracture of the left hip by means of a dynamic femoral head screw and a intramedullary nail. The nails affixed distally with a single screw. There atherosclerotic vascular calcifications. Impression: Intraoperative imaging from orthopedic surgery. Please see operative report.
--- NOTE | 2018-03-12 15:38 | Infectious Diseases Prog Note ---
Assessment/Plan Problems: (1) Leukocytosis Assessment & Plan: suspect post OP reactive leukocytosis , urine culture was not done , will stop cefepime and doxycycline empirically . monitor WBC (2) Trochanteric fracture of left femur Assessment & Plan: S/P ORIF, POD2 , continue pain management and pt/ot as per ortho (3) STUART (acute kidney injury) Assessment & Plan: suspect dehydration VS ATN , continue hydration, avoid nephrotoxics, monitor renal function (4) Left hip pain Assessment & Plan: due to the above, continue pain management as needed Subjective Constitutional: Reports: no symptoms HEENT: Reports: no symptoms Respiratory: Reports: no symptoms Breasts: Reports: no symptoms Cardiovascular: Reports: no symptoms Gastrointestinal/Abdominal: Reports: no symptoms Genitourinary: Reports: no symptoms Neurologic: Reports: no symptoms Psychiatric: Reports: no symptoms Skin: Reports: no symptoms Endocrine: Reports: no symptoms Hematologic: Reports: no symptoms Musculoskeletal: Reports: no symptoms Allergies: Coded Allergies: PENICILLINS (Verified Allergy, Unknown, 03/05/18) Subjective no agitation , comfortable, lying in bed, answer questions . Objective Vital Signs Last 24 Hour Vital Signs Date Time Temp Pulse Resp B/P (MAP) Pulse Ox O2 Delivery O2 Flow Rate FiO2 03/12/18 13:20 90 131/71 03/12/18 12:00 98.4 88 20 131/71 (91) 94 03/12/18 12:00 90 03/12/18 09:00 Nasal Cannula 2.0 03/12/18 08:00 93 03/12/18 08:00 97.1 98 18 122/84 (97) 93 03/12/18 06:09 98 03/12/18 04:00 98.2 99 20 127/79 (95) 96 03/12/18 03:20 97 03/12/18 00:00 97.3 101 18 114/54 (74) 97 03/11/18 23:27 95 03/11/18 22:35 102 03/11/18 21:32 95 Nasal Cannula 2.0 28 03/11/18 21:32 Nasal Cannula 2.0 28 03/11/18 21:00 Nasal Cannula 2.0 03/11/18 20:00 98.7 93 18 100/62 (75) 98 03/11/18 19:03 92 03/11/18 16:00 97.2 77 20 123/69 (87) 93 03/11/18 16:00 92 Height (Feet): 5 Height (Inches): 11.00 Weight (Pounds): 243 General Appearance: WD/WN, no acute distress HEENT: normocephalic, atraumatic, anicteric, mucous membranes moist, PERRL Respiratory/Chest: chest wall non-tender, lungs clear, normal breath sounds, no respiratory distress, no accessory muscle use, decreased breath sounds Cardiovascular: normal peripheral pulses, normal rate, regular rhythm, regularly irregular, no gallop/murmur, no JVD Abdomen: normal bowel sounds, soft, non tender, no organomegaly, non distended , no mass, no scars Extremities: no cyanosis, no clubbing Skin: no rash, no lesions, no ulcers, other - left hip surgical scars Neurologic/Psychiatric: alert, responsive Lymphatic: no neck adenopathy, no groin adenopathy Musculoskeletal: normal muscle bulk, no effusion Laboratory Tests Test 03/12/18 06:20 White Blood Count 12.3 K/UL (4.8-10.8) H Red Blood Count 3.44 M/UL (4.70-6.10) L Hemoglobin 10.3 G/DL (14.2-18.0) L Hematocrit 30.0 % (42.0-52.0) L Mean Corpuscular Volume 87 FL (80-99) Mean Corpuscular Hemoglobin 29.8 PG (27.0-31.0) Mean Corpuscular Hemoglobin Concent 34.1 G/DL (32.0-36.0) Red Cell Distribution Width 12.3 % (11.6-14.8) Platelet Count 226 K/UL (150-450) Mean Platelet Volume 5.9 FL (6.5-10.1) L Neutrophils (%) (Auto) 77.8 % (45.0-75.0) H Lymphocytes (%) (Auto) 8.9 % (20.0-45.0) L Monocytes (%) (Auto) 8.9 % (1.0-10.0) Eosinophils (%) (Auto) 3.3 % (0.0-3.0) H Basophils (%) (Auto) 1.0 % (0.0-2.0) Sodium Level 139 MMOL/L (136-145) Potassium Level 3.0 MMOL/L (3.5-5.1) L Chloride Level 103 MMOL/L (98-107) Carbon Dioxide Level 25 MMOL/L (21-32) Anion Gap 11 mmol/L (5-15) Blood Urea Nitrogen 47 mg/dL (7-18) H Creatinine 1.8 MG/DL (0.55-1.30) H Estimat Glomerular Filtration Rate mL/min (>60) Glucose Level 114 MG/DL (74-106) H Calcium Level 8.9 MG/DL (8.5-10.1) Current Medications Medications (Trade) Dose Ordered Sig/Colin Route PRN Reason Start Time Stop Time Status Last Admin Dose Admin Acetaminophen (Tylenol) 650 mg Q6H PRN ORAL Mild Pain/Temp > 100.5 03/09/18 20:30 04/08/18 20:29 03/10/18 21:06 Apixaban (Eliquis) 2.5 mg BID ORAL 03/10/18 18:00 04/09/18 17:59 03/12/18 09:27 Atorvastatin Calcium (Lipitor) 20 mg BEDTIME ORAL 03/09/18 21:00 04/04/18 20:59 03/11/18 20:45 Carbidopa/Levodopa (Sinemet 25/100) 1 tab THREE TIMES A DAY ORAL 03/10/18 09:00 04/04/18 12:59 03/12/18 13:20 Cefepime HCl 2 gm/ Dextrose 55 ml @ 110 mls/hr Q24H IVPB 03/10/18 15:00 03/16/18 14:59 03/12/18 14:05 Clonidine HCl (Catapres Tab) 0.1 mg Q8H PRN ORAL FOR SBP GREATER THAN 160 03/09/18 19:30 04/04/18 11:29 Diltiazem HCl (Cardizem) 90 mg EVERY 8 HOURS ORAL 03/10/18 14:00 04/07/18 17:59 03/12/18 13:20 Donepezil HCl (Aricept) 10 mg QHS ORAL 03/09/18 21:00 04/04/18 20:59 03/11/18 20:45 Doxycycline Hyclate 100 mg/ Dextrose 110 ml @ 110 mls/hr Q12HR IV 03/09/18 21:00 03/16/18 15:59 03/12/18 12:04 Gabapentin (Neurontin) 100 mg DAILY ORAL 03/10/18 09:00 04/05/18 08:59 03/12/18 09:27 Lactulose (Cephulac) 30 gm BID ORAL 03/11/18 18:00 04/10/18 17:59 03/12/18 09:28 Ondansetron HCl (Zofran) 4 mg Q4H PRN IVP Nausea & Vomiting 03/10/18 11:00 04/09/18 10:59 03/10/18 11:05 Potassium Chloride (K-Dur) 40 meq Q4H ORAL 03/12/18 13:00 03/12/18 17:01 03/12/18 13:20 Quetiapine Fumarate (SEROquel) 25 mg DAILY ORAL 03/10/18 09:00 04/05/18 08:59 03/12/18 09:27 Venlafaxine HCl (Effexor-XR) 37.5 mg DAILY ORAL 03/10/18 09:00 04/06/18 08:59 03/12/18 09:27 Srini Sam M.D. Mar 12, 2018 15:38
[2018-03-12] MEDS ORDERED: NS 275ml ONE (15:44)
[2018-03-12] MEDS ORDERED: D5 1/2NS 1000ml IV ONE ×2 (15:44→15:48)
[2018-03-12] MEDS ORDERED: ZOFRAN 4 MG4 MG/2 ML PO (15:46)
[2018-03-12] MEDS ORDERED: Tubing IV Secondary IV ONE (15:48)
[2018-03-12 16:00] VITALS: BP 130/82
--- NOTE | 2018-03-12 18:45 | Discharge Summary ---
DATE OF ADMISSION: 03/05/2018 DATE OF DISCHARGE: 03/12/2018 HOSPITAL COURSE: This is an 87-year-old male, who was brought in from assisted living due to recent fall with left hip pain. The patient was found to have a left hip intertrochanteric fracture following a mechanical fall. The patient underwent surgery and was able to have well good pain control following the surgery. Postop, the patient developed new onset atrial fibrillation. He was transferred to the intensive care unit due to rapid heart rate. He received intravenous diltiazem while in the intensive care unit followed with oral diltiazem to control the heart rate. He also received Eliquis 2.5 twice a day for anticoagulation due to atrial fibrillation. Postop, he also had elevated WBC, which most likely was due to postop following the surgery. His blood cultures and chest x-ray were all negative for any sign of infection. The patient was also continued on his home medications for his dementia, hyperlipidemia, depression, and his Parkinson disease. The patient will be discharged to [facility] for further physical therapy and care. DISCHARGE DIAGNOSES: Includes, 1. New onset atrial fibrillation. 2. Left hip intertrochanteric fracture status post surgery due to mechanical fall. 3. Hypertension. 4. Hyperlipidemia. 5. Dementia. 6. Depression. 7. Parkinson disease. 8. Acute on chronic kidney disease. 9. Leukocytosis secondary to postop. 10. Constipation. 11. Nausea and vomiting. 12. Hypokalemia that resolved. DISCHARGE MEDICATIONS: Includes, 1. Acetaminophen 325 two tabs q.6 hours p.r.n. 2. Eliquis 2.5 mg b.i.d. 3. Lipitor 20 mg at bedtime. 4. Diltiazem 90 mg q.8 hours. 5. Aricept 10 mg at bedtime. 6. Gabapentin 100 mg daily. 7. [place] 5/325 one q.6 hours p.r.n. 8. Lactulose 20 mg per 30 mL twice a day. 9. Zofran 4 mg IV push q.4 hours p.r.n. 10. Seroquel 25 mg daily. 11. Tramadol 50 mg q.8 hours p.r.n. 12. Effexor 37.5 p.o. daily plus Sinemet 25/100 one p.o. 3 times a day and multivitamin 1 p.o. daily. DISPOSITION: The patient will be discharged back to [facility] and will have physical therapy and occupational therapy at the rehabilitation. Shelby Arrington M.D. DR: DRAKE JOB#: [id number] CC:
[2018-03-12 20:00] VITALS: BP 144/91
== END 2018-03-12 20:45 | DRG 480 ==
LOC: EDBD 05:32 → EMR 05:46 → 4E 06:12 → EDBEDREQ 09:38 → 4E 13:00 → 3E 03-07 06:45 → ICU 03-08 00:10 → 2E 03-09 18:21
PROC: 0QS734Z Reposition Left Upper Femur with Internal Fixation Device, Percutaneous Approach (ICD-10-PCS; principal; 2018-03-06 18:00)
DX: S72.142A Displaced intertrochanteric fracture of left femur, initial encounter for closed fracture (principal); N17.0 Acute kidney failure with tubular necrosis; W19.XXXA Unspecified fall, initial encounter; Y92.9 Unspecified place or not applicable; G20 Parkinson's disease; F02.80 Dementia in other diseases classified elsewhere, unspecified severity, without behavioral disturbance, psychotic disturbance, mood disturbance, and anxiety; J44.9 Chronic obstructive pulmonary disease, unspecified; F32.9 Major depressive disorder, single episode, unspecified; E78.5 Hyperlipidemia, unspecified; I12.9 Hypertensive chronic kidney disease with stage 1 through stage 4 chronic kidney disease, or unspecified chronic kidney disease; N18.9 Chronic kidney disease, unspecified; I48.91 Unspecified atrial fibrillation; D72.829 Elevated white blood cell count, unspecified; E87.6 Hypokalemia
CPT/HCPCS: 36415; 71045; 72170; 72192; 73502; 74018; 76001; 76770; 80048; 80053; 81001; 81003; 82306; 82550; 82553; 83735; 83970; 84484; 85007; 85025; 85610; 85730; 87040; 87081; 93005; 93306; 94003; 94150; 94760; 96374; 96375; 99285; J2405; J3490; J8499

== ENCOUNTER 2018-03-24 20:30 | Inpatient (IN) | payer MEDICARE, OTHER ==
[~2018-03-24] VITALS: Ht 172.7 cm; Wt 104.8 kg
[~2018-03-24 20:30] MED LIST: ACETAMINOPHEN325 M1 ORAL; CARDIZEM90 MG ORAL; CLONIDINE0.1 MG PO; DONEPEZIL HCL10 M2 ORAL; DONEPEZIL HCL10 MG ORAL; EFFEXOR-XR37.5 MG ORAL; ELIQUIS2.5 MG ORAL; FUROSEMIDE20 M1 ORAL; GABAPENTIN100 MG ORAL; IBUPROFEN600 MG ORAL; LACTULOSE20 GM/301 ORAL; LIPITOR20 MG ORAL; LIPITOR80 MG ORAL; NORCO 5-325 TA1 EACH ORAL; NORVASC10 MG ORAL; POTASSIUM CHLO10 ME2 PO; QUETIAPINE FUM300 MG ORAL; SEROQUEL25 MG ORAL; SINEMET 25-1001 EAC1 ORAL; THERA M PLUS T1 EAC2 PO; TRAMADOL HCL100 M2 ORAL; TRAMADOL HCL50 MG ORAL; ZOFRAN 4 MG4 MG/2 ML PO
[2018-03-24] MEDS ORDERED: dilTIAZem HCl 25mg/5ml Inj IVP ONE ×2 (20:45→23:00)
[2018-03-24] MEDS ORDERED: Vancomycin 1.5gm/D5W 250ml 250 ML IVPB ONE (20:45)
[2018-03-24 21:25] VITALS: BP 112/76
[2018-03-24 21:32] LABS: BASOPHILS % (AUTO) 0.9 % (0.0-2.0); EOSINOPHILS % (AUTO) 1.2 % (0.0-3.0); HEMATOCRIT 29.6 % (42.0-52.0); HEMOGLOBIN 9.3 G/DL (14.2-18.0); LYMPHOCYTES % (AUTO) 10.5 % (20.0-45.0); MEAN CORPUSCULAR VOLUME 91 FL (80-99); MONOCYTES % (AUTO) 10.1 % (1.0-10.0); NEUTROPHILS % (AUTO) 77.4 % (45.0-75.0); PLATELET COUNT 404 K/UL (150-450); RED BLOOD COUNT 3.25 M/UL (4.70-6.10); RED CELL DISTRIBUTION WIDTH 15.7 % (11.6-14.8); WHITE BLOOD COUNT 12.6 K/UL (4.8-10.8)
[2018-03-24 21:41] LABS: ANION GAP 10 mmol/L (5-15); BLOOD UREA NITROGEN 25 mg/dL (7-18); CALCIUM 8.5 MG/DL (8.5-10.1); CARBON DIOXIDE 24 MMOL/L (21-32); CHLORIDE 108 MMOL/L (98-107); CREATININE 1.5 MG/DL (0.55-1.30); POTASSIUM 4.7 MMOL/L (3.5-5.1); SODIUM 142 MMOL/L (136-145)
[2018-03-24 21:42] LABS: INR 1.1 (0.9-1.1)
--- NOTE | 2018-03-24 21:42 | Emergency Room Report ---
History of Present Illness General Chief Complaint: Abnormal Labs Source: Medical Record Present Illness HPI Patient is a 87-year-old male brought in by EMS for abnormal laboratory testing. Patient was noted to have the prior history of atrial fibrillation. Patient recent hip surgery. He was noted to have increased rate as well as some slight increased confusion. The patient had the prior history of Parkinson 's disease. He been recently treated for hip fracture. The patient was noted to be somewhat more confused Allergies: Coded Allergies: MORPHINE (Verified Allergy, Unknown, 03/25/18) PENICILLINS (Verified Allergy, Unknown, 03/05/18) Patient History Reviewed Nursing Documentation: PMH: Agreed; PSxH: Agreed Nursing Documentation-PMH Hx Cardiac Problems: Yes Hx Hypertension: Yes - hyperlipidemia Hx COPD: Yes Hx Cancer: No Hx Gastrointestinal Problems: No Hx Neurological Problems: Yes Hx Parkinson's Disease: Yes Review of Systems All Other Systems: negative except mentioned in HPI Physical Exam Vital Signs Date Time Temp Pulse Resp B/P (MAP) Pulse Ox O2 Delivery O2 Flow Rate FiO2 03/24/18 20:30 97.0 147 19 120/82 95 Room Air Sp02 EP Interpretation: reviewed, normal General Appearance: alert, obese, Chronically Ill Head: atraumatic ENT: normal ENT inspection, hearing grossly normal, normal voice, dry mucus membranes Neck: normal inspection, no bony tend Respiratory: normal inspection, lungs clear, normal breath sounds, no respiratory distress, no retraction, no wheezing Cardiovascular #1: no edema, tachycardia Gastrointestinal: normal inspection, normal bowel sounds, non tender, soft, no guarding, no hernia Genitourinary: no CVA tenderness Musculoskeletal: back normal, normal range of motion Neurologic: normal inspection, alert, responsive Psychiatric: normal inspection Skin: other - buttock ulcer Procedures Critical Care Time Critical Care Time Patient had a critical medical condition which untreated could potentially result in life or limb threatening injury. Total critical care time excluding procedures approximately 45 minutes. Medical Decision Making Diagnostic Impression: Primary Impression: Rapid atrial fibrillation Additional Impression: Leukocytosis ER Course Patient presented for abnormal labs and altered mental status. The differential diagnosis included was not limited to sepsis, anemia, myocardial infarction, pulmonary embolism among others.Because of complexity of patient's case laboratory testing and imaging studies were ordered.The patient was noted to have rapid atrial fibrillation the patient was started on IV Cardizem and IV fluids. Dr. Roman was contacted for inpatient management. Patient will require further medication for rate control. Hemoglobin appeared to be adequate. CT chest was ordered due to recent surgery. Labs Test 03/24/18 21:00 03/24/18 22:40 03/25/18 04:10 03/25/18 15:40 Lactic Acid Level 1.80 mmol/L (0.4-2.0) Phosphorus Level 3.4 MG/DL (2.5-4.9) Magnesium Level 1.9 MG/DL (1.8-2.4) Total Creatine Kinase 44 U/L (26-308) Creatine Kinase MB 1.8 NG/ML (0.0-3.6) Creatine Kinase MB Relative Index 4.0 Urine Color Yellow Urine Appearance Slightly cloudy Urine pH 5 (4.5-8.0) Urine Specific [place] 1.020 (1.005-1.035) Urine Protein 3+ (NEGATIVE) Urine Glucose (UA) Negative (NEGATIVE) Urine Ketones Negative (NEGATIVE) Urine Blood 2+ (NEGATIVE) Urine Nitrite Negative (NEGATIVE) Urine Bilirubin Negative (NEGATIVE) Urine Urobilinogen 1 MG/DL (0.0-1.0) Urine Leukocyte Esterase Negative (NEGATIVE) Urine RBC 0-2 /HPF (0 - 0) Urine WBC 0-2 /HPF (0 - 0) Urine Squamous Epithelial Cells None /LPF (NONE/OCC) Urine Amorphous Sediment Moderate /LPF (NONE) Urine Bacteria Few /HPF (NONE) Pro-B-Type Natriuretic Peptide 6354 pg/mL (0-125) Ammonia 12 umol/L (11-32) Test 03/26/18 04:30 White Blood Count 10.6 K/UL (4.8-10.8) Red Blood Count 2.78 M/UL (4.70-6.10) Hemoglobin 8.2 G/DL (14.2-18.0) Hematocrit 25.4 % (42.0-52.0) Mean Corpuscular Volume 91 FL (80-99) Mean Corpuscular Hemoglobin 29.5 PG (27.0-31.0) Mean Corpuscular Hemoglobin Concent 32.3 G/DL (32.0-36.0) Red Cell Distribution Width 15.1 % (11.6-14.8) Platelet Count 345 K/UL (150-450) Mean Platelet Volume 5.7 FL (6.5-10.1) Neutrophils (%) (Auto) 79.8 % (45.0-75.0) Lymphocytes (%) (Auto) 7.4 % (20.0-45.0) Monocytes (%) (Auto) 8.8 % (1.0-10.0) Eosinophils (%) (Auto) 3.2 % (0.0-3.0) Basophils (%) (Auto) 0.9 % (0.0-2.0) Prothrombin Time 12.2 SEC (9.30-11.50) Prothromb Time International Ratio 1.2 (0.9-1.1) Activated Partial Thromboplast Time 36 SEC (23-33) Sodium Level 139 MMOL/L (136-145) Potassium Level 4.1 MMOL/L (3.5-5.1) Chloride Level 108 MMOL/L (98-107) Carbon Dioxide Level 23 MMOL/L (21-32) Anion Gap 8 mmol/L (5-15) Blood Urea Nitrogen 22 mg/dL (7-18) Creatinine 1.3 MG/DL (0.55-1.30) Estimat Glomerular Filtration Rate mL/min (>60) Glucose Level 119 MG/DL (74-106) Calcium Level 8.6 MG/DL (8.5-10.1) Iron Level 24 ug/dL (50-175) Total Iron Binding Capacity 165 ug/dL (250-450) Percent Iron Saturation 15 % (15-50) Unsaturated Iron Binding 141 ug/dL (112-346) Ferritin 248 NG/ML (8-388) Total Bilirubin 0.6 MG/DL (0.2-1.0) Aspartate Amino Transf (AST/SGOT) 19 U/L (15-37) Alanine Aminotransferase (ALT/SGPT) 15 U/L (12-78) Alkaline Phosphatase 193 U/L (46-116) Troponin I 0.025 ng/mL (0.000-0.056) Total Protein 6.2 G/DL (6.4-8.2) Albumin 2.0 G/DL (3.4-5.0) Globulin 4.2 g/dL Albumin/Globulin Ratio 0.5 (1.0-2.7) Vitamin B12 Level 905 PG/ML (193-986) Folate 32.3 NG/ML (8.6-58.9) Thyroid Stimulating Hormone (TSH) 0.607 uiU/mL (0.358-3.740) Free Thyroxine 1.31 NG/DL (0.76-1.46) Digoxin Level 0.6 NG/ML (0.5-2.0) Last Vital Signs Date Time Temp Pulse Resp B/P (MAP) Pulse Ox O2 Delivery O2 Flow Rate FiO2 03/24/18 21:25 97.0 108 19 112/76 97 Room Air Status: unchanged Disposition: ADMITTED INPATIENT Condition: Serious Referrals: Shelby Arrington MD (PCP) Ottoniel Woodard MD Mar 24, 2018 21:42
[2018-03-24] MEDS ORDERED: Isovue-370 150ml vial INJ PRN (21:45)
[2018-03-24 21:54] LABS: ALANINE AMINOTRANSFERASE 16 U/L (12-78); ALBUMIN 2.5 G/DL (3.4-5.0); ALBUMIN/GLOBULIN RATIO 0.6 (1.0-2.7); ALKALINE PHOSPHATASE 227 U/L (46-116); ASPARTATE AMINO TRANSFERASE 23 U/L (15-37); BILIRUBIN,TOTAL 0.8 MG/DL (0.2-1.0); CKMB 1.8 NG/ML (0.0-3.6); CREATINE KINASE 44 U/L (26-308); PHOSPHORUS 3.4 MG/DL (2.5-4.9)
[2018-03-24] MEDS ORDERED: Cefepime HCl 1 GM in D5W 55 ML IVPB ONE (22:45)
[2018-03-24] MEDS ORDERED: Morphine Sulfate 4mg/ml Inj (IV/IM USE ONLY) IVP ONE (22:45)
--- NOTE | 2018-03-24 22:53 | Emergency Room Report ---
Physical Exam Vital Signs Date Time Temp Pulse Resp B/P (MAP) Pulse Ox O2 Delivery O2 Flow Rate FiO2 03/24/18 20:30 97.0 147 19 120/82 95 Room Air Medical Decision Making Diagnostic Impression: Primary Impression: Healthcare-associated pneumonia Additional Impression: Rapid atrial fibrillation ER Course Patient signed out to me. He presents with rapid A. fib. He was sent down for CT and chest x-ray. Chest x-ray showed a right lower lobe infiltrate. This may be secondary to aspiration. This may explain his rapid atrial fibrillation. CT head negative. A CT chest was attempted but was unsuccessful. This is due to the fact that the auto-injector was not working. Antibiotic started. Chest X-Ray Diagnostic Results Chest X-Ray Diagnostic Results : Chest X-Ray Ordered: Yes # of Views/Limited/Complete: 1 View Indication: Shortness of Breath EP Interpretation: Yes Interpretation: no effusion, no pneumothorax, other - Right lower lobe infiltrate Impression: Other - Right lower lobe infiltrate Electronically Signed by: Guillaume Gabriel MD CT/MRI/US Diagnostic Results CT/MRI/US Diagnostic Results : Imaging Test Ordered: CT head Impression negative per radiologist Last Vital Signs Date Time Temp Pulse Resp B/P (MAP) Pulse Ox O2 Delivery O2 Flow Rate FiO2 03/24/18 21:25 97.0 108 19 112/76 97 Room Air Referrals: Shelby Arrington MD (PCP) Guillaume Gabriel MD Mar 24, 2018 22:53
[2018-03-24 23:00] VITALS: BP 131/87
[2018-03-24 23:04] LABS: APPEARANCE,URINE SLIGHTLY CLOUDY; BILIRUBIN, URINE NEGATIVE (NEGATIVE); GLUCOSE, URINE (UA) NEGATIVE (NEGATIVE); KETONES,URINE NEGATIVE (NEGATIVE); LEUKOCYTE ESTERASE ,URINE NEGATIVE (NEGATIVE); NITRITE,URINE NEGATIVE (NEGATIVE); PH,URINE 5 (4.5-8.0); PROTEIN,URINE 3+ (NEGATIVE); UROBILINOGEN,URINE 1 MG/DL (0.0-1.0)
[2018-03-24 23:05] LABS: COLOR,URINE YELLOW
[2018-03-24 23:15] VITALS: BP 124/86
[2018-03-25] VITALS (20 sets, daily range): BP systolic 108–143; BP diastolic 61–105
[2018-03-25] MEDS ORDERED: LACTULOSE20 GM/301 ORAL (01:33)
[2018-03-25] MEDS ORDERED: LORazepam Inj 2mg/ml 1ml IV PRN ×2 (01:45→14:00)
[2018-03-25] MEDS ORDERED: traMADol 50mg tab ORAL PRN ×2 (02:00→14:00)
[2018-03-25] MEDS ORDERED: Norco 5mg/325mg tab ORAL PRN ×2 (02:00→08:00)
[2018-03-25] MEDS ORDERED: MULTIVITAMINS1 EAC8 ORAL (03:57)
[2018-03-25] MEDS ORDERED: QUETIAPINE FUMA25 MG ORAL (03:57)
[2018-03-25 05:28] LABS: EOSINOPHILS % (AUTO) 1.1 % (0.0-3.0); HEMATOCRIT 28.7 % (42.0-52.0); HEMOGLOBIN 9.1 G/DL (14.2-18.0); LYMPHOCYTES % (AUTO) 10.5 % (20.0-45.0); MEAN CORPUSCULAR VOLUME 92 FL (80-99); MONOCYTES % (AUTO) 9.9 % (1.0-10.0); NEUTROPHILS % (AUTO) 77.6 % (45.0-75.0); PLATELET COUNT 401 K/UL (150-450); RED BLOOD COUNT 3.11 M/UL (4.70-6.10); RED CELL DISTRIBUTION WIDTH 15.1 % (11.6-14.8); WHITE BLOOD COUNT 12.1 K/UL (4.8-10.8)
[2018-03-25 06:09] LABS: ANION GAP 10 mmol/L (5-15); BLOOD UREA NITROGEN 24 mg/dL (7-18); CALCIUM 8.6 MG/DL (8.5-10.1); CARBON DIOXIDE 22 MMOL/L (21-32); CHLORIDE 108 MMOL/L (98-107); CREATININE 1.3 MG/DL (0.55-1.30); POTASSIUM 4.4 MMOL/L (3.5-5.1); SODIUM 140 MMOL/L (136-145)
--- NOTE | 2018-03-25 08:50 | General Progress Note ---
Assessment/Plan Status: stable Assessment/Plan 1. A Fib with RVR - on IV diltiazem. cardiology is following. 2. Possible Pneumonia - cont IV Abx. will have ID follow the patient as well. 3. Parkinson dx - cont home med. 4. HLD - cont home med. 5. Anemia - follow up CBC. start protonix 40 mg IV daily. 6. Stool hemocult positive at rehab - will has GI see the patient as well. 7. recent Hip surgery in previous admission - venous u/s of lower ext pending. Subjective Date patient seen: Mar 25, 2018 Time patient seen: 08:40 Constitutional: Reports: weakness HEENT: Reports: no symptoms Cardiovascular: Reports: irregular heart rate Respiratory: Reports: no symptoms Gastrointestinal/Abdominal: Reports: no symptoms Genitourinary: Reports: no symptoms Neurologic/Psychiatric: Reports: no symptoms Endocrine: Reports: no symptoms Hematologic/Lymphatic: Reports: no symptoms Allergies: Coded Allergies: MORPHINE (Verified Allergy, Unknown, 03/25/18) PENICILLINS (Verified Allergy, Unknown, 03/05/18) Subjective This morning he is still in A Fib with RVR in 130-140's. He is in ICU. Diltiazem drip just started. He is awake but slightly hard to understand him. no sob or chest pain. no fever or chills. Objective Last 24 Hour Vital Signs Date Time Temp Pulse Resp B/P (MAP) Pulse Ox O2 Delivery O2 Flow Rate FiO2 03/25/18 08:00 2.0 03/25/18 07:55 131 133/88 03/25/18 04:00 2.0 03/25/18 04:00 120 03/25/18 04:00 Nasal Cannula 2.0 03/25/18 04:00 98.4 146 16 130/77 (94) 99 03/25/18 00:56 Room Air 03/25/18 00:30 97.7 139 18 128/102 (111) 97 03/25/18 00:15 97.0 98 19 124/86 97 Room Air 03/24/18 23:35 97.0 03/24/18 23:15 97.0 98 19 124/86 97 Room Air 03/24/18 23:00 98.8 148 19 131/87 97 Room Air 03/24/18 22:58 146 131/87 03/24/18 21:25 97.0 108 19 112/76 97 Room Air 03/24/18 21:19 147 120/82 03/24/18 20:30 97.0 147 19 120/82 95 Room Air Intake and Output 03/24/18 03/25/18 19:00 07:00 Intake Total 153 ml Output Total 250 ml Balance -97 ml Intake IV Total 153 ml Output Urine Total 250 ml Laboratory Tests 03/24/18 21:00: White Blood Count 12.6H, Red Blood Count 3.25L, Hemoglobin 9.3L, Hematocrit 29.6L, Mean Corpuscular Volume 91, Mean Corpuscular Hemoglobin 28.7, Mean Corpuscular Hemoglobin Concent 31.6L, Red Cell Distribution Width 15.7H, Platelet Count 404, Mean Platelet Volume 5.8L, Neutrophils (%) (Auto) 77.4H, Lymphocytes (%) (Auto) 10.5L, Monocytes (%) (Auto) 10.1H, Eosinophils (%) (Auto ) 1.2, Basophils (%) (Auto) 0.9, Prothrombin Time 11.6H, Prothromb Time International Ratio 1.1, Activated Partial Thromboplast Time 32, Sodium Level 142, Potassium Level 4.7, Chloride Level 108H, Carbon Dioxide Level 24, Anion Gap 10, Blood Urea Nitrogen 25H, Creatinine 1.5H, Estimat Glomerular Filtration Rate , Glucose Level 103, Lactic Acid Level 1.80, Calcium Level 8.5, Phosphorus Level 3.4, Magnesium Level 1.9, Total Bilirubin 0.8, Aspartate Amino Transf (AST /SGOT) 23, Alanine Aminotransferase (ALT/SGPT) 16, Alkaline Phosphatase 227H, Total Creatine Kinase 44, Creatine Kinase MB 1.8, Creatine Kinase MB Relative Index 4.0, Troponin I 0.012, Total Protein 6.4, Albumin 2.5L, Globulin 3.9, Albumin/Globulin Ratio 0.6L 03/24/18 22:40: Urine Color Yellow, Urine Appearance Slightly cloudy, Urine pH 5, Urine Specific [place] 1.020, Urine Protein 3+H, Urine Glucose (UA) Negative, Urine Ketones Negative, Urine Blood 2+H, Urine Nitrite Negative, Urine Bilirubin Negative, Urine Urobilinogen 1H, Urine Leukocyte Esterase Negative, Urine RBC 0- 2H, Urine WBC 0-2, Urine Squamous Epithelial Cells None, Urine Amorphous Sediment ModerateH, Urine Bacteria Few 03/25/18 04:10: White Blood Count 12.1H, Red Blood Count 3.11L, Hemoglobin 9.1L, Hematocrit 28.7L, Mean Corpuscular Volume 92, Mean Corpuscular Hemoglobin 29.2, Mean Corpuscular Hemoglobin Concent 31.6L, Red Cell Distribution Width 15.1H, Platelet Count 401, Mean Platelet Volume 5.6L, Neutrophils (%) (Auto) 77.6H, Lymphocytes (%) (Auto) 10.5L, Monocytes (%) (Auto) 9.9, Eosinophils (%) (Auto) 1.1, Basophils (%) (Auto) 1.0, Sodium Level 140, Potassium Level 4.4, Chloride Level 108H, Carbon Dioxide Level 22, Anion Gap 10, Blood Urea Nitrogen 24H, Creatinine 1.3, Estimat Glomerular Filtration Rate , Glucose Level 109H, Calcium Level 8.6, Pro-B-Type Natriuretic Peptide 6354H Height (Feet): 5 Height (Inches): 9.00 Weight (Pounds): 223 General Appearance: lethargic EENT: other - loose lower tooth Neck: non-tender, supple Cardiovascular: regularly irregular Respiratory/Chest: lungs clear, normal breath sounds Abdomen: non tender, soft Extremities: non-tender Edema: 1+ Leg (L), 1+ Leg (R) Neurologic: responsive Skin: warm/dry Lymphatic: normal anterior cervical (L), normal anterior cervical (R), normal posterior cervical (L), normal posterior cervical (R), normal submandibular (L) , normal submandibular (R), normal supraclavicular (L), normal supraclavicular ( R), normal axillary (L), normal axillary (R), normal inguinal (L), normal inguinal (R), normal other Shelby Arrington MD Mar 25, 2018 08:50
[2018-03-25] MEDS ORDERED: Eliquis 2.5mg tablet ORAL SCH (09:00)
[2018-03-25] MEDS ORDERED: Venlafaxine XR 37.5mg cap ORAL SCH (09:00)
[2018-03-25] MEDS ORDERED: Levodopa/Carbidopa 25/100 tab ORAL SCH (09:00)
[2018-03-25] MEDS ORDERED: Lactulose 20gm/30ml UDC ORAL SCH (09:00)
[2018-03-25] MEDS: Pantoprazole Inj IVP SCH (10:06)
[2018-03-25] MEDS: Venlafaxine XR 37.5mg cap ORAL SCH (10:07)
[2018-03-25] MEDS: Levodopa/Carbidopa 25/100 tab ORAL SCH ×3 (10:07→17:06)
[2018-03-25] MEDS: Lactulose 20gm/30ml UDC ORAL SCH ×2 (10:07→17:06)
[2018-03-25] MEDS: Eliquis 2.5mg tablet ORAL SCH ×2 (10:08→20:29)
--- NOTE | 2018-03-25 10:29 | Cardiac Electrophysiology PN ---
Subjective Subjective [id number] Objective Last 24 Hour Vital Signs Date Time Temp Pulse Resp B/P (MAP) Pulse Ox O2 Delivery O2 Flow Rate FiO2 03/25/18 08:00 2.0 03/25/18 07:55 131 133/88 03/25/18 04:00 2.0 03/25/18 04:00 120 03/25/18 04:00 Nasal Cannula 2.0 03/25/18 04:00 98.4 146 16 130/77 (94) 99 03/25/18 00:56 Room Air 03/25/18 00:30 97.7 139 18 128/102 (111) 97 03/25/18 00:15 97.0 98 19 124/86 97 Room Air 03/24/18 23:35 97.0 03/24/18 23:15 97.0 98 19 124/86 97 Room Air 03/24/18 23:00 98.8 148 19 131/87 97 Room Air 03/24/18 22:58 146 131/87 03/24/18 21:25 97.0 108 19 112/76 97 Room Air 03/24/18 21:19 147 120/82 03/24/18 20:30 97.0 147 19 120/82 95 Room Air Intake and Output 03/24/18 03/25/18 19:00 07:00 Intake Total 153 ml Output Total 250 ml Balance -97 ml Intake IV Total 153 ml Output Urine Total 250 ml Laboratory Tests Test 03/24/18 21:00 03/24/18 22:40 03/25/18 04:10 White Blood Count 12.6 K/UL (4.8-10.8) H 12.1 K/UL (4.8-10.8) H Red Blood Count 3.25 M/UL (4.70-6.10) L 3.11 M/UL (4.70-6.10) L Hemoglobin 9.3 G/DL (14.2-18.0) L 9.1 G/DL (14.2-18.0) L Hematocrit 29.6 % (42.0-52.0) L 28.7 % (42.0-52.0) L Mean Corpuscular Volume 91 FL (80-99) 92 FL (80-99) Mean Corpuscular Hemoglobin 28.7 PG (27.0-31.0) 29.2 PG (27.0-31.0) Mean Corpuscular Hemoglobin Concent 31.6 G/DL (32.0-36.0) L 31.6 G/DL (32.0-36.0) L Red Cell Distribution Width 15.7 % (11.6-14.8) H 15.1 % (11.6-14.8) H Platelet Count 404 K/UL (150-450) 401 K/UL (150-450) Mean Platelet Volume 5.8 FL (6.5-10.1) L 5.6 FL (6.5-10.1) L Neutrophils (%) (Auto) 77.4 % (45.0-75.0) H 77.6 % (45.0-75.0) H Lymphocytes (%) (Auto) 10.5 % (20.0-45.0) L 10.5 % (20.0-45.0) L Monocytes (%) (Auto) 10.1 % (1.0-10.0) H 9.9 % (1.0-10.0) Eosinophils (%) (Auto) 1.2 % (0.0-3.0) 1.1 % (0.0-3.0) Basophils (%) (Auto) 0.9 % (0.0-2.0) 1.0 % (0.0-2.0) Prothrombin Time 11.6 SEC (9.30-11.50) H Prothromb Time International Ratio 1.1 (0.9-1.1) Activated Partial Thromboplast Time 32 SEC (23-33) Sodium Level 142 MMOL/L (136-145) 140 MMOL/L (136-145) Potassium Level 4.7 MMOL/L (3.5-5.1) 4.4 MMOL/L (3.5-5.1) Chloride Level 108 MMOL/L (98-107) H 108 MMOL/L (98-107) H Carbon Dioxide Level 24 MMOL/L (21-32) 22 MMOL/L (21-32) Anion Gap 10 mmol/L (5-15) 10 mmol/L (5-15) Blood Urea Nitrogen 25 mg/dL (7-18) H 24 mg/dL (7-18) H Creatinine 1.5 MG/DL (0.55-1.30) H 1.3 MG/DL (0.55-1.30) Estimat Glomerular Filtration Rate mL/min (>60) mL/min (>60) Glucose Level 103 MG/DL (74-106) 109 MG/DL (74-106) H Lactic Acid Level 1.80 mmol/L (0.4-2.0) Calcium Level 8.5 MG/DL (8.5-10.1) 8.6 MG/DL (8.5-10.1) Phosphorus Level 3.4 MG/DL (2.5-4.9) Magnesium Level 1.9 MG/DL (1.8-2.4) Total Bilirubin 0.8 MG/DL (0.2-1.0) Aspartate Amino Transf (AST/SGOT) 23 U/L (15-37) Alanine Aminotransferase (ALT/SGPT) 16 U/L (12-78) Alkaline Phosphatase 227 U/L (46-116) H Total Creatine Kinase 44 U/L (26-308) Creatine Kinase MB 1.8 NG/ML (0.0-3.6) Creatine Kinase MB Relative Index 4.0 Troponin I 0.012 ng/mL (0.000-0.056) Total Protein 6.4 G/DL (6.4-8.2) Albumin 2.5 G/DL (3.4-5.0) L Globulin 3.9 g/dL Albumin/Globulin Ratio 0.6 (1.0-2.7) L Urine Color Yellow Urine Appearance Slightly cloudy Urine pH 5 (4.5-8.0) Urine Specific [place] 1.020 (1.005-1.035) Urine Protein 3+ (NEGATIVE) H Urine Glucose (UA) Negative (NEGATIVE) Urine Ketones Negative (NEGATIVE) Urine Blood 2+ (NEGATIVE) H Urine Nitrite Negative (NEGATIVE) Urine Bilirubin Negative (NEGATIVE) Urine Urobilinogen 1 MG/DL (0.0-1.0) H Urine Leukocyte Esterase Negative (NEGATIVE) Urine RBC 0-2 /HPF (0 - 0) H Urine WBC 0-2 /HPF (0 - 0) Urine Squamous Epithelial Cells None /LPF (NONE/OCC) Urine Amorphous Sediment Moderate /LPF (NONE) H Urine Bacteria Few /HPF (NONE) Pro-B-Type Natriuretic Peptide 6354 pg/mL (0-125) H Microbiology Date/Time Source Procedure Growth Status 03/24/18 21:30 Rectum Received Gary Bay MD Mar 25, 2018 10:29
--- NOTE | 2018-03-25 10:43 | Diagnostic Imaging Report ---
Indication: Altered mental status Technique: spiral acquisitions obtained through the brain. Angled axial and coronal 5 x 5 mm slices were reconstructed. No IV contrast utilized. Radiation dose was minimized using automated exposure control Total dose length product 1526.64 mGycm. CTDIvol(s) 70.38 mGy Comparison: None FINDINGS: There is some image degradation due to motion artifact. No acute hemorrhage or edema. No mass effect or midline shift. There is age-related enlargement of the ventricles and extra axial CSF spaces. There is periventricular deep white matter ischemic change. Normal celestin-white differentiation. Visualized orbits are unremarkable. Visualized sinuses are unremarkable. Intact calvarium. IMPRESSION: Chronic and age-related changes. Negative for acute intracranial bleed or mass effect This agrees with the preliminary interpretation provided overnight by [facility] teleradiology service. The CT scanner at [facility] is accredited by the [employer] and the scans are performed using protocols designed to limit radiation exposure to as low as reasonably achievable to attain images of sufficient resolution adequate for diagnostic evaluation
[2018-03-25] MEDS ORDERED: Digoxin 0.5mg/2ml Inj IVP SCH (10:45)
--- NOTE | 2018-03-25 10:52 | Diagnostic Imaging Report ---
Indication: Chest pain Technique: One view of the chest Comparison: 03/08/2018 Findings: Heart is enlarged. There is diffuse interstitial prominence, equivocally slightly more striking than on the previous exam. No focal airspace consolidation. The pleural spaces are grossly clear Impression: Hepatomegaly Diffuse interstitial prominence. Probably mostly on the basis of chronic senescent changes. However, it appears slightly increased from the previous study, possibly indicating a component of acute interstitial edema. Correlate with clinical findings
[2018-03-25] MEDS: LORazepam Inj 2mg/ml 1ml IV PRN (11:07)
--- NOTE | 2018-03-25 11:56 | GI Initial Consult Note ---
History of Present Illness General Date patient seen: Mar 25, 2018 Time patient seen: 11:44 Reason for Hospitalization: Abnormal Labs Referring physician: EDITH Reason for Consultation: ANEMIA Present Illness HPI Patient is a 87-year-old male brought in by EMS for abnormal laboratory testing. Patient was noted to have the prior history of atrial fibrillation. Patient recent hip surgery. He was noted to have increased rate as well as some slight increased confusion. The patient had the prior history of Parkinson 's disease. He been recently treated for hip fracture. The patient was noted to be somewhat more confused. GI consulted for anemia. ROS limited, patient seen in ICU. NGT present, on restraints. Head CT performed, negative at this time. Labs reviewed, mild leukocytosis, anemia, elevated alkaline phosphatase and renal insufficiency. No transaminitis. Unknown history of endoscopy / colonoscopy. Home Meds Active Scripts Ondansetron* (ZOFRAN*) 4 Mg/2 Ml Vial, 4 MG PO Q4H PRN for 30 Days, VIAL Prov:Shelby Arrington MD 03/12/18 Tramadol Hcl* (ULTRAM*) 50 Mg Tablet, 50 MG ORAL Q8H PRN for 30 Days, TAB Prov:Shelby Arrington MD 03/12/18 Venlafaxine HCl (Effexor Xr) 37.5 Mg Cap.er.24h, 37.5 MG ORAL DAILY for 30 Days , CAP Prov:Shelby Arrington MD 03/12/18 Quetiapine Fumarate* (SEROQUEL*) 25 Mg Tablet, 25 MG ORAL DAILY for 30 Days, TAB Prov:Shelby Arrington MD 03/12/18 Hydrocodone Bit/Acetaminophen 5-325* ([place] 5-325*) 1 Each Tablet, 1 TAB ORAL Q6H PRN for 30 Days, TAB Prov:Shelby Arrington MD 03/12/18 Gabapentin* (GABAPENTIN*) 100 Mg Capsule, 100 MG ORAL DAILY for 30 Days, CAP Prov:Shelby Arrington MD 03/12/18 Diltiazem HCl (Diltiazem HCl) 90 Mg Tablet, 90 MG ORAL EVERY 8 HOURS for 30 Days , TAB Prov:Shelby Arrington MD 03/12/18 Atorvastatin Calcium* (LIPITOR*) 20 Mg Tablet, 20 MG ORAL BEDTIME for 30 Days, TAB Prov:Shelby Arrington MD 03/12/18 Apixaban (ELIQUIS) 2.5 Mg Tablet, 2.5 MG ORAL BID for 30 Days, TAB Prov:Shelby Arrington MD 03/12/18 Acetaminophen* (ACETAMINOPHEN 325MG TABLET*) 325 Mg Tablet, 650 MG ORAL Q6H PRN for 30 Days, TAB Prov:Shelby Arrington MD 03/12/18 Reported Medications Multivitamin With Minerals (MULTIVITAMINS WITH MINERALS*) 1 Each Tablet, 1 TAB ORAL DAILY, TAB 03/25/18 Quetiapine Fumarate* (SEROQUEL*) 25 Mg Tablet, 25 MG ORAL QHS, TAB 03/25/18 Lactulose (LACTULOSE*) 20 Gm/30 Ml Solution, 45 ML ORAL DAILY, ML 0 Refills 03/25/18 Carbidopa/Levodopa 25-100 Mg* (SINEMET 25-100 MG TABLET*) 1 Each Tablet, 1 TAB ORAL THREE TIMES A DAY, TAB 03/05/18 Multivits,Ca,Minerals/Iron/FA (Thera M Plus Tablet) 1 Each Tablet, 1 EACH PO, TAB 03/05/18 Med list reviewed/reconciled: Yes Allergies: Coded Allergies: MORPHINE (Verified Allergy, Unknown, 03/25/18) PENICILLINS (Verified Allergy, Unknown, 03/05/18) Patient History Limited by: medical condition History Provided By: Medical Record PMH Narrative Hx Cardiac Problems: Yes Hx Hypertension: Yes - hyperlipidemia Hx COPD: Yes Hx Cancer: No Hx Gastrointestinal Problems: No Hx Neurological Problems: Yes Hx Parkinson's Disease: Yes Social History: Denies: smoking, alcohol use, drug use, other Review of Systems All Other Systems: limited Physical Exam Vital Signs Date Time Temp Pulse Resp B/P (MAP) Pulse Ox O2 Delivery O2 Flow Rate FiO2 03/24/18 20:30 97.0 147 19 120/82 95 Room Air 03/25/18 04:00 2.0 Sp02 EP Interpretation: reviewed, normal Labs Laboratory Tests Test 03/24/18 21:00 03/24/18 22:40 03/25/18 04:10 White Blood Count 12.6 K/UL (4.8-10.8) H 12.1 K/UL (4.8-10.8) H Red Blood Count 3.25 M/UL (4.70-6.10) L 3.11 M/UL (4.70-6.10) L Hemoglobin 9.3 G/DL (14.2-18.0) L 9.1 G/DL (14.2-18.0) L Hematocrit 29.6 % (42.0-52.0) L 28.7 % (42.0-52.0) L Mean Corpuscular Volume 91 FL (80-99) 92 FL (80-99) Mean Corpuscular Hemoglobin 28.7 PG (27.0-31.0) 29.2 PG (27.0-31.0) Mean Corpuscular Hemoglobin Concent 31.6 G/DL (32.0-36.0) L 31.6 G/DL (32.0-36.0) L Red Cell Distribution Width 15.7 % (11.6-14.8) H 15.1 % (11.6-14.8) H Platelet Count 404 K/UL (150-450) 401 K/UL (150-450) Mean Platelet Volume 5.8 FL (6.5-10.1) L 5.6 FL (6.5-10.1) L Neutrophils (%) (Auto) 77.4 % (45.0-75.0) H 77.6 % (45.0-75.0) H Lymphocytes (%) (Auto) 10.5 % (20.0-45.0) L 10.5 % (20.0-45.0) L Monocytes (%) (Auto) 10.1 % (1.0-10.0) H 9.9 % (1.0-10.0) Eosinophils (%) (Auto) 1.2 % (0.0-3.0) 1.1 % (0.0-3.0) Basophils (%) (Auto) 0.9 % (0.0-2.0) 1.0 % (0.0-2.0) Prothrombin Time 11.6 SEC (9.30-11.50) H Prothromb Time International Ratio 1.1 (0.9-1.1) Activated Partial Thromboplast Time 32 SEC (23-33) Sodium Level 142 MMOL/L (136-145) 140 MMOL/L (136-145) Potassium Level 4.7 MMOL/L (3.5-5.1) 4.4 MMOL/L (3.5-5.1) Chloride Level 108 MMOL/L (98-107) H 108 MMOL/L (98-107) H Carbon Dioxide Level 24 MMOL/L (21-32) 22 MMOL/L (21-32) Anion Gap 10 mmol/L (5-15) 10 mmol/L (5-15) Blood Urea Nitrogen 25 mg/dL (7-18) H 24 mg/dL (7-18) H Creatinine 1.5 MG/DL (0.55-1.30) H 1.3 MG/DL (0.55-1.30) Estimat Glomerular Filtration Rate mL/min (>60) mL/min (>60) Glucose Level 103 MG/DL (74-106) 109 MG/DL (74-106) H Lactic Acid Level 1.80 mmol/L (0.4-2.0) Calcium Level 8.5 MG/DL (8.5-10.1) 8.6 MG/DL (8.5-10.1) Phosphorus Level 3.4 MG/DL (2.5-4.9) Magnesium Level 1.9 MG/DL (1.8-2.4) Total Bilirubin 0.8 MG/DL (0.2-1.0) Aspartate Amino Transf (AST/SGOT) 23 U/L (15-37) Alanine Aminotransferase (ALT/SGPT) 16 U/L (12-78) Alkaline Phosphatase 227 U/L (46-116) H Total Creatine Kinase 44 U/L (26-308) Creatine Kinase MB 1.8 NG/ML (0.0-3.6) Creatine Kinase MB Relative Index 4.0 Troponin I 0.012 ng/mL (0.000-0.056) Total Protein 6.4 G/DL (6.4-8.2) Albumin 2.5 G/DL (3.4-5.0) L Globulin 3.9 g/dL Albumin/Globulin Ratio 0.6 (1.0-2.7) L Urine Color Yellow Urine Appearance Slightly cloudy Urine pH 5 (4.5-8.0) Urine Specific [place] 1.020 (1.005-1.035) Urine Protein 3+ (NEGATIVE) H Urine Glucose (UA) Negative (NEGATIVE) Urine Ketones Negative (NEGATIVE) Urine Blood 2+ (NEGATIVE) H Urine Nitrite Negative (NEGATIVE) Urine Bilirubin Negative (NEGATIVE) Urine Urobilinogen 1 MG/DL (0.0-1.0) H Urine Leukocyte Esterase Negative (NEGATIVE) Urine RBC 0-2 /HPF (0 - 0) H Urine WBC 0-2 /HPF (0 - 0) Urine Squamous Epithelial Cells None /LPF (NONE/OCC) Urine Amorphous Sediment Moderate /LPF (NONE) H Urine Bacteria Few /HPF (NONE) Pro-B-Type Natriuretic Peptide 6354 pg/mL (0-125) H General Appearance: well appearing, no apparent distress, alert Head: normocephalic EENT: PERRL/EOMI, normal ENT inspection Neck: supple Respiratory: normal breath sounds, no respiratory distress Cardiovascular: normal rate Gastrointestinal: normal inspection, non tender, soft, normal bowel sounds, non -distended, ngt Rectal: deferred Genitourinary: deferred Musculoskeletal: normal inspection, back normal Neurologic: alert, responsive Skin: normal inspection, normal color, no rash, warm/dry, palpation normal, well hydrated Lymphatic: normal inspection, no adenopathy Current Medications Current Medications Medications (Trade) Dose Ordered Sig/Colin Route PRN Reason Start Time Stop Time Status Last Admin Dose Admin Acetaminophen (Tylenol) 650 mg Q6H PRN ORAL Mild Pain/Temp > 100.5 03/25/18 08:00 04/24/18 01:59 Acetaminophen/ Hydrocodone Bitart ([place] 5/325) 1 tab Q6H PRN ORAL Severe Pain (Pain Scale 7-10) 03/25/18 08:00 04/01/18 01:59 Apixaban (Eliquis) 2.5 mg Q12HR ORAL 03/25/18 09:00 04/24/18 08:59 03/25/18 10:08 Atorvastatin Calcium (Lipitor) 20 mg BEDTIME ORAL 03/25/18 21:00 04/24/18 20:59 Carbidopa/Levodopa (Sinemet 25/100) 1 tab THREE TIMES A DAY ORAL 03/25/18 09:00 04/24/18 08:59 03/25/18 10:07 Cefepime HCl 1 gm/ Dextrose 55 ml @ 110 mls/hr Q24H IVPB 03/25/18 22:00 04/01/18 21:59 Digoxin (Lanoxin) 0.25 mg DAILY ORAL 03/26/18 09:00 04/25/18 08:59 Diltiazem HCl 125 mg/Dextrose 125 ml @ 10 mls/hr Q24H IV 03/25/18 07:15 04/24/18 06:29 03/25/18 07:55 Gabapentin (Neurontin) 100 mg DAILY ORAL 03/25/18 09:00 04/24/18 08:59 03/25/18 10:08 Lactulose (Cephulac) 30 gm BID ORAL 03/25/18 09:00 04/24/18 08:59 03/25/18 10:07 Lorazepam (Ativan 2mg/ml 1ml) 1 mg Q8H PRN IV For Anxiety 03/25/18 11:01 04/01/18 11:00 Ondansetron HCl (Zofran) 4 mg Q4H PRN IVP Nausea & Vomiting 03/25/18 07:00 04/24/18 06:59 Pantoprazole (Protonix) 40 mg DAILY IVP 03/25/18 09:00 04/24/18 08:59 03/25/18 10:06 Sodium Chloride 1,000 ml @ 50 mls/hr Q20H IV 03/25/18 06:45 04/24/18 01:59 03/25/18 06:54 Tramadol HCl (Ultram) 50 mg Q8H PRN ORAL Moderate Pain (Pain Scale 4-6) 03/25/18 14:00 04/01/18 13:59 Vancomycin HCl (Vanco rx to dose) 1 ea DAILY MISC 03/25/18 09:00 04/24/18 08:59 Vancomycin HCl/ Dextrose 250 ml @ 167 mls/hr Q24H IVPB 03/25/18 23:00 03/30/18 22:59 Venlafaxine HCl (Effexor-XR) 37.5 mg DAILY ORAL 03/25/18 09:00 04/24/18 08:59 03/25/18 10:07 GI: Plan Problems: (1) Anemia (2) Encephalopathy (3) Fall (4) Leukocytosis Plan Head CT reviewed >> negative for bleed or mass NGT inserted, CXR confirmation NGTFs per RD to goal, will consider PEG if necessary anemia work up >> will consider endoscopy OB stool r/o GI bleed monitor H&H, prn transfusions bowel regime ppi abx fu labs Discussed with Dr. Barrera. Thank you for this patient referral, we will follow. The patient was seen and examined at bedside and all new and available data was reviewed in the patients chart. I agree with the above findings, impression and plan. (Patient seen earlier today. Signature stamp does not reflect patient encounter time.). - MD Nery KochBanner Md Anderson Cancer CenterJose M[employer] EDUCATIONAL SPECIALIST Mar 25, 2018 11:56
--- NOTE | 2018-03-25 13:07 | Diagnostic Imaging Report ---
APPROVED REPORT CPT Code: 72159 Present Symptoms Shortness of breath BILATERAL: Imaging reveals a patent deep venous system bilaterally. There is no evidence of thrombus within the femoral, popliteal or tibial segments. The greater saphenous veins are also within normal limits. Doppler indicates normal spontaneous flow within these segments.
--- NOTE | 2018-03-25 13:32 | Infectious Diseases Prog Note ---
Assessment/Plan Problems: (1) Healthcare-associated pneumonia Assessment & Plan: with B/L interstitial infiltrates , will start aztreonam and continue vancomycin empirically , will send sputum culture . monitor CXR (2) STUART (acute kidney injury) Assessment & Plan: improving continue gentle hydration , and renally dosed meds as per pharmacy (3) Trochanteric fracture of left femur Assessment & Plan: S/P ORIF, will order X ray to evaluate the hardware (4) Rapid atrial fibrillation Assessment & Plan: on diltiazem , cardiology is following (5) Encephalopathy Assessment & Plan: due to the above, continue supportive care, stop cefepime and monitor closely Subjective Allergies: Coded Allergies: MORPHINE (Verified Allergy, Unknown, 03/25/18) PENICILLINS (Verified Allergy, Unknown, 03/05/18) Objective Vital Signs Last 24 Hour Vital Signs Date Time Temp Pulse Resp B/P (MAP) Pulse Ox O2 Delivery O2 Flow Rate FiO2 03/25/18 12:00 Nasal Cannula 2.0 03/25/18 12:00 127 03/25/18 12:00 99.0 124 17 143/83 (103) 99 03/25/18 12:00 2.0 03/25/18 11:49 131 133/82 03/25/18 11:45 138 03/25/18 11:00 139 17 121/84 (96) 97 03/25/18 10:00 142 18 108/71 (83) 99 03/25/18 09:00 100.0 141 19 110/93 (99) 99 03/25/18 08:00 2.0 03/25/18 08:00 141 03/25/18 07:55 131 133/88 03/25/18 07:00 143 16 129/93 (105) 99 03/25/18 04:00 2.0 03/25/18 04:00 120 03/25/18 04:00 Nasal Cannula 2.0 03/25/18 04:00 98.4 146 16 130/77 (94) 99 03/25/18 00:56 Room Air 03/25/18 00:30 97.7 139 18 128/102 (111) 97 03/25/18 00:15 97.0 98 19 124/86 97 Room Air 03/24/18 23:35 97.0 03/24/18 23:15 97.0 98 19 124/86 97 Room Air 03/24/18 23:00 98.8 148 19 131/87 97 Room Air 03/24/18 22:58 146 131/87 03/24/18 21:25 97.0 108 19 112/76 97 Room Air 03/24/18 21:19 147 120/82 03/24/18 20:30 97.0 147 19 120/82 95 Room Air Height (Feet): 5 Height (Inches): 9.00 Weight (Pounds): 223 Microbiology Date/Time Source Procedure Growth Status 03/24/18 21:30 Rectum Received Laboratory Tests Test 03/24/18 21:00 03/24/18 22:40 03/25/18 04:10 White Blood Count 12.6 K/UL (4.8-10.8) H 12.1 K/UL (4.8-10.8) H Red Blood Count 3.25 M/UL (4.70-6.10) L 3.11 M/UL (4.70-6.10) L Hemoglobin 9.3 G/DL (14.2-18.0) L 9.1 G/DL (14.2-18.0) L Hematocrit 29.6 % (42.0-52.0) L 28.7 % (42.0-52.0) L Mean Corpuscular Volume 91 FL (80-99) 92 FL (80-99) Mean Corpuscular Hemoglobin 28.7 PG (27.0-31.0) 29.2 PG (27.0-31.0) Mean Corpuscular Hemoglobin Concent 31.6 G/DL (32.0-36.0) L 31.6 G/DL (32.0-36.0) L Red Cell Distribution Width 15.7 % (11.6-14.8) H 15.1 % (11.6-14.8) H Platelet Count 404 K/UL (150-450) 401 K/UL (150-450) Mean Platelet Volume 5.8 FL (6.5-10.1) L 5.6 FL (6.5-10.1) L Neutrophils (%) (Auto) 77.4 % (45.0-75.0) H 77.6 % (45.0-75.0) H Lymphocytes (%) (Auto) 10.5 % (20.0-45.0) L 10.5 % (20.0-45.0) L Monocytes (%) (Auto) 10.1 % (1.0-10.0) H 9.9 % (1.0-10.0) Eosinophils (%) (Auto) 1.2 % (0.0-3.0) 1.1 % (0.0-3.0) Basophils (%) (Auto) 0.9 % (0.0-2.0) 1.0 % (0.0-2.0) Prothrombin Time 11.6 SEC (9.30-11.50) H Prothromb Time International Ratio 1.1 (0.9-1.1) Activated Partial Thromboplast Time 32 SEC (23-33) Sodium Level 142 MMOL/L (136-145) 140 MMOL/L (136-145) Potassium Level 4.7 MMOL/L (3.5-5.1) 4.4 MMOL/L (3.5-5.1) Chloride Level 108 MMOL/L (98-107) H 108 MMOL/L (98-107) H Carbon Dioxide Level 24 MMOL/L (21-32) 22 MMOL/L (21-32) Anion Gap 10 mmol/L (5-15) 10 mmol/L (5-15) Blood Urea Nitrogen 25 mg/dL (7-18) H 24 mg/dL (7-18) H Creatinine 1.5 MG/DL (0.55-1.30) H 1.3 MG/DL (0.55-1.30) Estimat Glomerular Filtration Rate mL/min (>60) mL/min (>60) Glucose Level 103 MG/DL (74-106) 109 MG/DL (74-106) H Lactic Acid Level 1.80 mmol/L (0.4-2.0) Calcium Level 8.5 MG/DL (8.5-10.1) 8.6 MG/DL (8.5-10.1) Phosphorus Level 3.4 MG/DL (2.5-4.9) Magnesium Level 1.9 MG/DL (1.8-2.4) Total Bilirubin 0.8 MG/DL (0.2-1.0) Aspartate Amino Transf (AST/SGOT) 23 U/L (15-37) Alanine Aminotransferase (ALT/SGPT) 16 U/L (12-78) Alkaline Phosphatase 227 U/L (46-116) H Total Creatine Kinase 44 U/L (26-308) Creatine Kinase MB 1.8 NG/ML (0.0-3.6) Creatine Kinase MB Relative Index 4.0 Troponin I 0.012 ng/mL (0.000-0.056) Total Protein 6.4 G/DL (6.4-8.2) Albumin 2.5 G/DL (3.4-5.0) L Globulin 3.9 g/dL Albumin/Globulin Ratio 0.6 (1.0-2.7) L Urine Color Yellow Urine Appearance Slightly cloudy Urine pH 5 (4.5-8.0) Urine Specific [place] 1.020 (1.005-1.035) Urine Protein 3+ (NEGATIVE) H Urine Glucose (UA) Negative (NEGATIVE) Urine Ketones Negative (NEGATIVE) Urine Blood 2+ (NEGATIVE) H Urine Nitrite Negative (NEGATIVE) Urine Bilirubin Negative (NEGATIVE) Urine Urobilinogen 1 MG/DL (0.0-1.0) H Urine Leukocyte Esterase Negative (NEGATIVE) Urine RBC 0-2 /HPF (0 - 0) H Urine WBC 0-2 /HPF (0 - 0) Urine Squamous Epithelial Cells None /LPF (NONE/OCC) Urine Amorphous Sediment Moderate /LPF (NONE) H Urine Bacteria Few /HPF (NONE) Pro-B-Type Natriuretic Peptide 6354 pg/mL (0-125) H Current Medications Medications (Trade) Dose Ordered Sig/Colin Route PRN Reason Start Time Stop Time Status Last Admin Dose Admin Acetaminophen (Tylenol) 650 mg Q6H PRN ORAL Mild Pain/Temp > 100.5 03/25/18 08:00 04/24/18 01:59 03/25/18 11:44 Acetaminophen/ Hydrocodone Bitart ([place] 5/325) 1 tab Q6H PRN ORAL Severe Pain (Pain Scale 7-10) 03/25/18 08:00 04/01/18 01:59 Apixaban (Eliquis) 2.5 mg Q12HR ORAL 03/25/18 09:00 04/24/18 08:59 03/25/18 10:08 Atorvastatin Calcium (Lipitor) 20 mg BEDTIME ORAL 03/25/18 21:00 04/24/18 20:59 Carbidopa/Levodopa (Sinemet 25/100) 1 tab THREE TIMES A DAY ORAL 03/25/18 09:00 04/24/18 08:59 03/25/18 10:07 Digoxin (Lanoxin) 0.25 mg DAILY ORAL 03/26/18 09:00 04/25/18 08:59 Diltiazem HCl 125 mg/Dextrose 125 ml @ 10 mls/hr Q24H IV 03/25/18 07:15 04/24/18 06:29 03/25/18 11:49 Gabapentin (Neurontin) 100 mg DAILY ORAL 03/25/18 09:00 04/24/18 08:59 03/25/18 10:08 Lactulose (Cephulac) 30 gm BID ORAL 03/25/18 09:00 04/24/18 08:59 03/25/18 10:07 Lorazepam (Ativan 2mg/ml 1ml) 1 mg Q8H PRN IV For Anxiety 03/25/18 11:01 04/01/18 11:00 03/25/18 11:07 Ondansetron HCl (Zofran) 4 mg Q4H PRN IVP Nausea & Vomiting 03/25/18 07:00 04/24/18 06:59 Pantoprazole (Protonix) 40 mg DAILY IVP 03/25/18 09:00 04/24/18 08:59 03/25/18 10:06 Sodium Chloride 1,000 ml @ 50 mls/hr Q20H IV 03/25/18 06:45 04/24/18 01:59 03/25/18 06:54 Tramadol HCl (Ultram) 50 mg Q8H PRN ORAL Moderate Pain (Pain Scale 4-6) 03/25/18 14:00 04/01/18 13:59 Vancomycin HCl (Vanco rx to dose) 1 ea DAILY MISC 03/25/18 09:00 04/24/18 08:59 Vancomycin HCl/ Dextrose 250 ml @ 167 mls/hr Q24H IVPB 03/25/18 23:00 03/30/18 22:59 Venlafaxine HCl (Effexor-XR) 37.5 mg DAILY ORAL 03/25/18 09:00 04/24/18 08:59 03/25/18 10:07 Srini Sam M.D. Mar 25, 2018 13:32
[2018-03-25] MEDS: Aztreonam Inj 2 GM in D5W 110 ML IVPB SCH ×2 (15:01→22:10)
--- NOTE | 2018-03-25 15:45 | Consultation ---
DATE OF CONSULTATION: 03/25/2018 CARDIOLOGY CONSULTATION CONSULTING PHYSICIAN: Gary Bay M.D. REFERRING PHYSICIAN: Shelby Arrington M.D. REASON FOR CONSULTATION: Atrial fibrillation with rapid ventricular response. HISTORY OF PRESENT ILLNESS: The patient is an 87-year-old gentleman was brought in from assisted by paramedics for abnormal blood work. The patient had recent hip surgery. The patient was found to be tachycardic and confused even though he has history of Parkinson disease. The patient was found to have atrial fibrillation with rapid ventricular response and per my order was transferred into intensive care unit and started on Cardizem drip. At the time of my evaluation, the patient is still tachycardic with heart rate of 140 and started on Cardizem 10 mg/hour. REVIEW OF SYSTEMS: Review of systems negative other than what was mentioned in the history of present illness even though it is hard to get information based on Parkinson's dementia. PAST MEDICAL HISTORY: As mentioned above. FAMILY HISTORY: Noncontributory. SOCIAL HISTORY: He lives in assisted. Does not smoke or drink alcohol. PHYSICAL EXAMINATION: VITAL SIGNS: Blood pressure 132/88, pulse 131, respirations 18, and temperature 98.4. HEENT: Head and neck showed no jugular venous distention. LUNGS: Coarse rhonchi. CARDIOVASCULAR: Irregularly irregular. Tachycardic. S1 and S2 with no gallop or murmur ABDOMEN: Soft. EXTREMITIES: No pitting edema. LABORATORY AND DIAGNOSTIC STUDIES: Telemetry strip showed atrial fibrillation with ventricular response, rate of up to 150s. Labs show white count 12.1, hemoglobin 9.1, hematocrit 28.7, and platelet count is 401. Sodium 140, potassium 4.4, BUN of 25, creatinine 1.3. First troponin is negative. BNP 6354. INR is 1.1. ASSESSMENT AND PLAN: 1. Atrial fibrillation with rapid ventricular response. The patient will be on Cardizem drip at 10 milligram/hour. I will digitalize the patient for better heart rate control. May need to increase Cardizem . We will get an echocardiogram and completely rule out myocardial infarction protocol. 2. History of hypertension. Maximize Cardizem at this time. The patient will be on Eliquis 2.5 mg b.i.d. for atrial fibrillation. 3. Possible sepsis with elevated white count. The patient will be on IV antibiotic. 4. Congestive heart failure. BNP of more than 6000. Echocardiogram is pending as well as . 5. Anemia, hemoglobin 9.1. 6. Parkinson disease and dementia. Thank you very much, Dr. Arrington, for allowing me to participate in the care of this patient. Please do not hesitate to contact me for any questions regarding my evaluation. Sincerely, Gray Bay M.D. DR: Remy JOB#: [id number] CC:
--- NOTE | 2018-03-25 16:53 | Diagnostic Imaging Report ---
Indication: Post nasogastric tube placement Technique: Supine view of the upper abdomen Comparison: 03/09/2018 Findings: Interim placement of a nasogastric tube, tip which projects at the level gastric body. Visualized bowel gas is unremarkable. There is pulmonary parenchymal disease which is also evident previously. Impression: Satisfactory nasogastric intubation Other findings as noted
--- NOTE | 2018-03-25 16:56 | Diagnostic Imaging Report ---
Indication: Left hip pain Technique: 2 views of the left hip Comparison: Intraoperative images dated 03/06/2018 Findings: Surgical hardware is seen reducing left hip intertrochanteric fracture. Fracture lines persists, consistent with recent nature of the fracture. The hardware appears intact and well aligned. The left hip joint is not well-demonstrated. Joint space appears grossly preserved Impression: Postoperative and posttraumatic changes, as described No definite acute bony trauma
--- NOTE | 2018-03-25 18:45 | Consultation ---
DATE OF CONSULTATION: 03/25/2018 INFECTIOUS DISEASE CONSULTATION CONSULTING PHYSICIAN: Srini Sam M.D. REQUESTING PHYSICIAN: Shelby Arrington M.D. REASON FOR CONSULTATION: Pneumonia with encephalopathy and leukocytosis. Recommendation for antibiotics treatment in the patient with penicillin allergy. HISTORY OF PRESENT ILLNESS: The patient is an 87-year-old male with past medical history of coronary artery disease, hyperlipidemia, COPD, and Parkinson disease with dementia, who had been hospitalized recently for left intertrochanteric hip fracture and underwent open reduction and internal fixation for his fracture, developed fever and leukocytosis after his surgery, and was treated with vancomycin and cefepime in the rehabilitation facility. He was brought in to the emergency room at [facility] due to rapid heartbeat with atrial fibrillation. The patient also was noticed to have increased confusion. Chest x-ray in the emergency room showed worsening interstitial infiltration which was concerning for pneumonia. His white count was elevated and he was started on antibiotics with vancomycin and cefepime, and Infectious Disease consultation was requested for antibiotics treatment and further management. As of note, the patient is altered, unresponsive to verbal commands, and cannot provide any history. History was mainly obtained from the medical record and nursing staff. REVIEW OF SYSTEMS: Unable to obtain. The patient is altered and cannot provide any history. PAST MEDICAL HISTORY: Significant for coronary artery disease, hypertension, COPD, neurological problem, dementia, Parkinson disease. PAST SURGICAL HISTORY: He had left hip intertrochanteric open reduction and internal fixation for fracture. FAMILY HISTORY: Unable to obtain. SOCIAL HISTORY: The patient was at the rehabilitation facility. No recent drugs, tobacco, or alcohol. ALLERGIES: He is allergic to penicillin. MEDICATIONS: He is on vancomycin and cefepime. For the rest of his medications, please refer to MAR. PHYSICAL EXAMINATION: VITAL SIGNS: Temperature 99, pulse 127 and regular, respirations 17, blood pressure 143/83, and saturation 99% on 2 L nasal cannula. GENERAL: Elderly male, obese, lying in bed, obtunded, unresponsive, in no acute distress. HEENT: Normocephalic and atraumatic. Symmetric face with no facial droop. Unable to assess pupils or oral mucosa. The patient does not follow command. NECK: Supple. Midline trachea. No lymphadenopathy. CARDIOVASCULAR: He is tachycardic with regular rhythm. S1, S2 normal. No murmur. LUNGS: He had diminished breathing sounds at the bases with crackles. No wheezing or rhonchi. Normal breathing efforts. ABDOMEN: Soft, obese, nontender, and nondistended. Hypoactive bowel sounds. No organomegaly or ascites. EXTREMITIES: No edema or cyanosis. SKIN: He had sacral redness with erythema and left heel deep tissue injury. Surgical scar on the left hip with clean wounds. No evidence of inflammation or drainage. LABORATORY DATA: Showed white count of 12.1, hemoglobin of 9.1, platelet count of 401,000. BUN of 24 and creatinine of 1.3. Urinalysis showed negative leukocyte esterase, negative nitrite, and few bacteria. IMAGING: Head CT scan showed chronic and age-related change. Negative for acute intracranial bleed or mass effect. Chest x-ray showed diffuse interstitial prominence, probably mostly on the basis of chronic changes that appeared slightly increased from the previous study, possibly indicating component for acute interstitial edema. Venous Doppler showed normal flow in both legs vein. ASSESSMENT AND RECOMMENDATION: 1. Healthcare-acquired pneumonia with increased interstitial infiltration and fever. We will send sputum for culture and start the patient on aztreonam and continue vancomycin empirically. Monitor chest x-ray. Aspiration precaution. 2. Acute renal failure due to poor oral intake and dehydration. Continue IV fluid and renally dose medicine. Avoid nephrotoxics. 3. Acute encephalopathy due to the above. Continue antibiotics. Stop cefepime to eliminate cause. Avoid sedative. 4. Rapid atrial fibrillation. Continue diltiazem for rate control. Cardiology is following. 5. History of trochanteric fracture of the left femur, status post open reduction and internal fixation. Continue pain management as needed and rehabilitation. We will order x-ray of the left hip to evaluate his hardware. Thank you for the consult. ID will continue to follow. Please feel free to call with any question. Srini Sam M.D. DR: Malia JOB#: [id number] CC:
--- NOTE | 2018-03-25 19:30 | History and Physical Report ---
DATE OF ADMISSION: 03/24/2018 CHIEF COMPLAINT: Rapid heart rate and anemia. HISTORY OF PRESENT ILLNESS: This is an 87-year-old male who was brought in from [facility] for complaint of confusion and anemia with guaiac-positive and rapid heart rate. The patient was evaluated in the emergency room and was found to have atrial fibrillation with rapid ventricular rate. The patient received Diltiazem IV push twice. However, His heart rate still run in the 130s and 140s after a few hours. The patient also had a chest x-ray done showing infiltrate with possible pneumonia. The patient was started on empiric intravenous antibiotic with vancomycin and cefepime and was transferred to the step-down originally followed by a transfer to the intensive care unit due to heart rate in 140s and 150s. The patient was started on IV diltiazem to control heart rate. PAST MEDICAL HISTORY: Include history of Parkinson disease and dementia, acute kidney injury, trochanteric fracture of the left femur status post surgery couple of weeks ago and recent atrial fibrillation with rapid ventricular rate, hyperlipidemia, gait instability plus depression and neuropathy. MEDICATIONS: Please reviewed the medication list from the chart. PAST SURGICAL HISTORY: Include hip surgery. FAMILY HISTORY: Noncontributory. SOCIAL HISTORY: No history of smoking or alcohol use. No intravenous drug use. REVIEW OF SYSTEMS: Negative except per history of present illness. PHYSICAL EXAMINATION: VITAL SIGNS: Include a temperature of 97.2, pulse 147, respirations 19, blood pressure 120/82, pulse oximetry 95% on room air. GENERAL APPEARANCE: Alert, obese, tachycardic and mumbling. HEENT: Normocephalic and normochromic. Extraocular muscles intact. Throat is clear. NECK: Supple. No lymphadenopathy. CARDIOVASCULAR: Irregularly irregular, tachycardic. No murmur or gallop. RESPIRATORY: Lungs are clear to auscultation bilaterally. No wheezing. No rales or rhonchi. GASTROINTESTINAL: Soft, nontender, nondistended. Positive bowel sounds. GENITOURINARY: No CVA tenderness. EXTREMITIES: No cyanosis or clubbing. A +1 edema. SKIN: No rash. LABORATORY AND DIAGNOSTIC DATA: Include WBC 12.6, hemoglobin 9.3, hematocrit 29.6, platelet count 404, lymphocyte 10.5, neutrophils 77.4. Sodium 142, potassium 4.7, chloride 108, carbon dioxide 24, BUN 25, and creatinine 1.5, glucose of 103, calcium 8.5, phosphorus 3.4, magnesium 1.9, AST 23, ALT 16, and alkaline phosphatase 227. Troponin is 0.12. Albumin 2.5. Lactic acid 1.8. UA showed +2 blood, +3 protein, and many amorphous sediment, few bacteria, wbc's 0 to 2, urine rbc's 0 to 2. IMAGING: CT of the head negative for intracranial bleed or mass effect, just age related changes. Chest x-ray showing diffuse interstitial prominence slightly more than previous studies that was done from last admission, indicative of possible acute interstitial edema. IMPRESSION: 1. Atrial fibrillation with rapid ventricular response. The patient will be admitted for IV diltiazem and possible addition of digoxin to improve the heart rate. The patient will be also have Cardiology Dr. Bay consulted and follow the patient as well. 2. History of hypertension and probably we will continue diltiazem that should be able to control his blood pressure. 3. Possible pneumonia. will continue empiric antibiotic with vancomycin and cefepime and have ID evaluate the patient as well. 4. Anemia, which will have a stool Hemoccult done, have GI evaluate the patient for possible upper and lower endoscopy. The patient had one stool hemoccults done in the rehabilitation at [facility] that was positive, but we will repeat that in the hospital and check. Hemoglobin was 7.8 at the rehabilitation but in the hospital was over 9. 5. History of Parkinson disease and we will continue home medications. 6. Dementia. 7. Trochanteric fracture of the left femur status post surgery two weeks ago. 8. Acute kidney injury with possible chronic kidney disease. We will continue IV hydration for now and monitor renal function. The patient will be admitted for minimum of two-night stay for atrial fibrillation with rapid ventricular response treatment as well as possible pneumonia treatment. Shelby Arrington M.D. DR: Tobias JOB#: [id number] CC: CINDY
[2018-03-25] MEDS: Atorvastatin 20mg tab ORAL SCH (20:29)
[2018-03-25] MEDS ORDERED: Atorvastatin 20mg tab ORAL SCH (21:00)
[2018-03-25] MEDS ORDERED: Cefepime HCl 1 GM in D5W 55 ML IVPB SCH ×4 (22:00)
[2018-03-25] MEDS ORDERED: Vancomycin 1.5gm/D5W 250ml 250 ML IVPB SCH (23:00)
[2018-03-25] MEDS: Vancomycin 1.5gm/D5W 250ml 250 ML IVPB SCH (23:10)
[2018-03-26] VITALS (24 sets, daily range): BP systolic 112–148; BP diastolic 70–96
[2018-03-26 05:23] LABS: BASOPHILS % (AUTO) 0.9 % (0.0-2.0); EOSINOPHILS % (AUTO) 3.2 % (0.0-3.0); HEMATOCRIT 25.4 % (42.0-52.0); HEMOGLOBIN 8.2 G/DL (14.2-18.0); LYMPHOCYTES % (AUTO) 7.4 % (20.0-45.0); MEAN CORPUSCULAR VOLUME 91 FL (80-99); MONOCYTES % (AUTO) 8.8 % (1.0-10.0); NEUTROPHILS % (AUTO) 79.8 % (45.0-75.0); PLATELET COUNT 345 K/UL (150-450); RED BLOOD COUNT 2.78 M/UL (4.70-6.10); RED CELL DISTRIBUTION WIDTH 15.1 % (11.6-14.8); WHITE BLOOD COUNT 10.6 K/UL (4.8-10.8)
[2018-03-26 05:33] LABS: INR 1.2 (0.9-1.1)
[2018-03-26 05:56] LABS: ALANINE AMINOTRANSFERASE 15 U/L (12-78); ALBUMIN/GLOBULIN RATIO 0.5 (1.0-2.7); ALKALINE PHOSPHATASE 193 U/L (46-116); ANION GAP 8 mmol/L (5-15); ASPARTATE AMINO TRANSFERASE 19 U/L (15-37); BILIRUBIN,TOTAL 0.6 MG/DL (0.2-1.0); BLOOD UREA NITROGEN 22 mg/dL (7-18); CALCIUM 8.6 MG/DL (8.5-10.1); CARBON DIOXIDE 23 MMOL/L (21-32); CHLORIDE 108 MMOL/L (98-107); CREATININE 1.3 MG/DL (0.55-1.30); FERRITIN 248 NG/ML (8-388); POTASSIUM 4.1 MMOL/L (3.5-5.1); SODIUM 139 MMOL/L (136-145)
[2018-03-26 06:02] LABS: % IRON SATURATION 15 % (15-50); IRON 24 ug/dL (50-175); TOTAL IRON BINDING CAPACITY 165 ug/dL (250-450)
[2018-03-26] MEDS: Aztreonam Inj 2 GM in D5W 110 ML IVPB SCH ×3 (06:19→22:54)
[2018-03-26] MEDS: Lactulose 20gm/30ml UDC ORAL SCH ×2 (08:40→18:14)
[2018-03-26] MEDS: Pantoprazole Inj IVP SCH (08:40)
[2018-03-26] MEDS: Venlafaxine XR 37.5mg cap ORAL SCH (08:40)
[2018-03-26] MEDS: Levodopa/Carbidopa 25/100 tab ORAL SCH ×3 (08:41→18:14)
[2018-03-26] MEDS: Eliquis 2.5mg tablet ORAL SCH ×2 (08:41→20:36)
--- NOTE | 2018-03-26 09:15 | General Progress Note ---
Assessment/Plan Status: stable Assessment/Plan 1. A Fib with RVR - improved HR. on IV diltiazem and Dig. cardiology is following. 2. Possible Pneumonia - cont IV Abx. will have ID follow the patient as well. Swollowing eval today. 3. Parkinson dx - cont home med. 4. HLD - cont home med. 5. Anemia - follow up CBC. cont protonix 40 mg IV daily. 6. Stool hemocult positive at rehab - will has GI see the patient as well. 7. recent Hip surgery in previous admission - venous u/s of lower ext negative for DVT. Subjective Date patient seen: Mar 26, 2018 Time patient seen: 08:45 Constitutional: Reports: weakness HEENT: Reports: no symptoms Cardiovascular: Reports: no symptoms Respiratory: Reports: no symptoms Gastrointestinal/Abdominal: Reports: no symptoms Genitourinary: Reports: no symptoms Neurologic/Psychiatric: Reports: no symptoms Endocrine: Reports: no symptoms Hematologic/Lymphatic: Reports: no symptoms Allergies: Coded Allergies: MORPHINE (Verified Allergy, Unknown, 03/25/18) PENICILLINS (Verified Allergy, Unknown, 03/05/18) Subjective His HR has improved with Dig and Diltiazem. Diltiazem is tappering down. He is in ICU. He is awake and he has NG tube in place. he is going to have swallowing eval done today. no sob or chest pain. no fever or chills. Objective Last 24 Hour Vital Signs Date Time Temp Pulse Resp B/P (MAP) Pulse Ox O2 Delivery O2 Flow Rate FiO2 03/26/18 08:42 93 03/26/18 08:00 2.0 03/26/18 08:00 97.0 85 20 142/88 (106) 97 03/26/18 08:00 Nasal Cannula 2.0 03/26/18 07:00 93 16 148/73 (98) 100 03/26/18 06:28 83 134/86 03/26/18 06:00 93 16 135/86 (102) 100 03/26/18 05:00 93 16 130/80 (97) 100 03/26/18 04:00 Nasal Cannula 2.0 03/26/18 04:00 98.6 90 16 138/93 (108) 100 03/26/18 04:00 88 03/26/18 04:00 2.0 03/26/18 03:00 93 16 145/82 (103) 100 03/26/18 02:00 92 16 139/73 (95) 100 03/26/18 01:00 90 16 130/70 (90) 100 03/26/18 00:00 Nasal Cannula 2.0 03/26/18 00:00 94 16 125/88 (100) 100 03/26/18 00:00 2.0 03/26/18 00:00 85 03/25/18 23:00 88 16 137/71 (93) 100 03/25/18 22:00 91 16 129/83 (98) 100 03/25/18 21:00 90 16 125/70 (88) 100 03/25/18 20:00 90 03/25/18 20:00 2.0 03/25/18 20:00 Nasal Cannula 2.0 03/25/18 20:00 98.8 92 16 132/69 (90) 100 03/25/18 19:43 85 117/83 03/25/18 19:00 96 16 119/68 (85) 100 03/25/18 18:00 93 14 117/72 (87) 99 03/25/18 17:05 108 120/76 03/25/18 17:00 95 13 119/61 (80) 99 03/25/18 16:00 98.9 100 16 132/105 (114) 99 03/25/18 16:00 93 03/25/18 16:00 2.0 03/25/18 16:00 Nasal Cannula 2.0 03/25/18 15:00 106 16 128/72 (90) 99 03/25/18 14:30 104 14 115/84 (94) 99 03/25/18 14:00 107 15 139/88 (105) 98 03/25/18 13:30 115 15 126/92 (103) 99 03/25/18 13:00 117 16 140/73 (95) 97 03/25/18 12:15 99.0 03/25/18 12:00 Nasal Cannula 2.0 03/25/18 12:00 127 03/25/18 12:00 99.0 124 17 143/83 (103) 99 03/25/18 12:00 2.0 03/25/18 11:49 131 133/82 03/25/18 11:45 138 03/25/18 11:00 139 17 121/84 (96) 97 03/25/18 10:00 142 18 108/71 (83) 99 Intake and Output 03/25/18 03/26/18 19:00 07:00 Intake Total 910 ml 1245.00 ml Output Total 230 ml 600 ml Balance 680 ml 645.00 ml Intake IV Total 910 ml 1245.00 ml Output Urine Total 230 ml 600 ml Laboratory Tests 03/25/18 15:40: Ammonia 12 03/26/18 04:30: White Blood Count 10.6, Red Blood Count 2.78L, Hemoglobin 8.2L, Hematocrit 25.4L , Mean Corpuscular Volume 91, Mean Corpuscular Hemoglobin 29.5, Mean Corpuscular Hemoglobin Concent 32.3, Red Cell Distribution Width 15.1H, Platelet Count 345, Mean Platelet Volume 5.7L, Neutrophils (%) (Auto) 79.8H, Lymphocytes (%) (Auto) 7.4L, Monocytes (%) (Auto) 8.8, Eosinophils (%) (Auto) 3.2H, Basophils (%) (Auto) 0.9, Reticulocyte Count [Pending], Prothrombin Time 12.2H, Prothromb Time International Ratio 1.2H, Activated Partial Thromboplast Time 36H, Sodium Level 139, Potassium Level 4.1, Chloride Level 108H, Carbon Dioxide Level 23, Anion Gap 8, Blood Urea Nitrogen 22H, Creatinine 1.3, Estimat Glomerular Filtration Rate , Glucose Level 119H, Calcium Level 8.6, Iron Level 24L, Total Iron Binding Capacity 165L, Percent Iron Saturation 15, Unsaturated Iron Binding 141, Ferritin 248, Total Bilirubin 0.6, Aspartate Amino Transf (AST /SGOT) 19, Alanine Aminotransferase (ALT/SGPT) 15, Alkaline Phosphatase 193H, Troponin I 0.025, Total Protein 6.2L, Albumin 2.0L, Globulin 4.2, Albumin/ Globulin Ratio 0.5L, Carcinoembryonic Antigen [Pending], Vitamin B12 Level 905, Folate 32.3, Thyroid Stimulating Hormone (TSH) 0.607, Free Thyroxine 1.31, Digoxin Level 0.6 Height (Feet): 5 Height (Inches): 9.00 Weight (Pounds): 226 General Appearance: no apparent distress EENT: normal ENT inspection Neck: non-tender, normal alignment, supple Cardiovascular: normal rate, regularly irregular, no gallop/murmur Respiratory/Chest: lungs clear, normal breath sounds Abdomen: normal bowel sounds, non tender, soft Extremities: normal range of motion, non-tender Edema: no edema noted Arm (L), no edema noted Arm (R), no edema noted Leg (L), no edema noted Leg (R), no edema noted Pedal (L), no edema noted Pedal (R), no edema noted Generalized Neurologic: alert, responsive Skin: warm/dry Lymphatic: normal anterior cervical (L), normal anterior cervical (R), normal posterior cervical (L), normal posterior cervical (R), normal submandibular (L) , normal submandibular (R), normal supraclavicular (L), normal supraclavicular ( R), normal axillary (L), normal axillary (R), normal inguinal (L), normal inguinal (R), normal other Shelby Arrington MD Mar 26, 2018 09:15
[2018-03-26] MEDS: LORazepam Inj 2mg/ml 1ml IV PRN (13:04)
--- NOTE | 2018-03-26 14:47 | Cardiac Electrophysiology PN ---
Assessment/Plan Assessment/Plan 1. Atrial fibrillation with rapid ventricular response. On Cardizem drip at 10 milligram/hour. Change Cardizem to po and Continue Po Dig and Eliquis. Echo EF Nl on 03/06/18 2. History of hypertension. On Cardizem 3. Sepsis with elevated white count. The patient will be on IV antibiotic. 4. Congestive heart failure. BNP of more than 6000. Echocardiogram Nl EF. 5. Anemia, hemoglobin 9.1. 6. Parkinson disease and dementia. Subjective Subjective In ICU on Cardizem drip. HR better. Confused. NG feeding on going Objective Last 24 Hour Vital Signs Date Time Temp Pulse Resp B/P (MAP) Pulse Ox O2 Delivery O2 Flow Rate FiO2 03/26/18 14:00 100 14 133/73 (93) 100 03/26/18 13:00 98.0 88 14 137/81 (99) 100 03/26/18 12:00 2.0 03/26/18 12:00 Nasal Cannula 2.0 03/26/18 12:00 96 17 143/96 (112) 100 03/26/18 12:00 97 03/26/18 11:00 105 15 119/70 (86) 100 03/26/18 10:00 91 13 117/74 (88) 100 03/26/18 09:00 101 16 143/87 (105) 100 03/26/18 08:42 93 03/26/18 08:00 2.0 03/26/18 08:00 97.0 85 20 142/88 (106) 97 03/26/18 08:00 Nasal Cannula 2.0 03/26/18 08:00 94 03/26/18 07:00 93 16 148/73 (98) 100 03/26/18 06:28 83 134/86 03/26/18 06:00 93 16 135/86 (102) 100 03/26/18 05:00 93 16 130/80 (97) 100 03/26/18 04:00 Nasal Cannula 2.0 03/26/18 04:00 98.6 90 16 138/93 (108) 100 03/26/18 04:00 88 03/26/18 04:00 2.0 03/26/18 03:00 93 16 145/82 (103) 100 03/26/18 02:00 92 16 139/73 (95) 100 03/26/18 01:00 90 16 130/70 (90) 100 03/26/18 00:00 Nasal Cannula 2.0 03/26/18 00:00 94 16 125/88 (100) 100 03/26/18 00:00 2.0 03/26/18 00:00 85 03/25/18 23:00 88 16 137/71 (93) 100 03/25/18 22:00 91 16 129/83 (98) 100 03/25/18 21:00 90 16 125/70 (88) 100 03/25/18 20:00 90 03/25/18 20:00 2.0 03/25/18 20:00 Nasal Cannula 2.0 03/25/18 20:00 98.8 92 16 132/69 (90) 100 03/25/18 19:43 85 117/83 03/25/18 19:00 96 16 119/68 (85) 100 03/25/18 18:00 93 14 117/72 (87) 99 03/25/18 17:05 108 120/76 03/25/18 17:00 95 13 119/61 (80) 99 03/25/18 16:00 98.9 100 16 132/105 (114) 99 03/25/18 16:00 93 03/25/18 16:00 2.0 03/25/18 16:00 Nasal Cannula 2.0 03/25/18 15:00 106 16 128/72 (90) 99 Intake and Output 03/25/18 03/26/18 19:00 07:00 Intake Total 910 ml 1245.00 ml Output Total 230 ml 600 ml Balance 680 ml 645.00 ml Intake IV Total 910 ml 1245.00 ml Output Urine Total 230 ml 600 ml Laboratory Tests Test 03/25/18 15:40 03/26/18 04:30 Ammonia 12 umol/L (11-32) White Blood Count 10.6 K/UL (4.8-10.8) Red Blood Count 2.78 M/UL (4.70-6.10) L Hemoglobin 8.2 G/DL (14.2-18.0) L Hematocrit 25.4 % (42.0-52.0) L Mean Corpuscular Volume 91 FL (80-99) Mean Corpuscular Hemoglobin 29.5 PG (27.0-31.0) Mean Corpuscular Hemoglobin Concent 32.3 G/DL (32.0-36.0) Red Cell Distribution Width 15.1 % (11.6-14.8) H Platelet Count 345 K/UL (150-450) Mean Platelet Volume 5.7 FL (6.5-10.1) L Neutrophils (%) (Auto) 79.8 % (45.0-75.0) H Lymphocytes (%) (Auto) 7.4 % (20.0-45.0) L Monocytes (%) (Auto) 8.8 % (1.0-10.0) Eosinophils (%) (Auto) 3.2 % (0.0-3.0) H Basophils (%) (Auto) 0.9 % (0.0-2.0) Reticulocyte Count 5.8 % (0.0-2.0) H Prothrombin Time 12.2 SEC (9.30-11.50) H Prothromb Time International Ratio 1.2 (0.9-1.1) H Activated Partial Thromboplast Time 36 SEC (23-33) H Sodium Level 139 MMOL/L (136-145) Potassium Level 4.1 MMOL/L (3.5-5.1) Chloride Level 108 MMOL/L (98-107) H Carbon Dioxide Level 23 MMOL/L (21-32) Anion Gap 8 mmol/L (5-15) Blood Urea Nitrogen 22 mg/dL (7-18) H Creatinine 1.3 MG/DL (0.55-1.30) Estimat Glomerular Filtration Rate mL/min (>60) Glucose Level 119 MG/DL (74-106) H Calcium Level 8.6 MG/DL (8.5-10.1) Iron Level 24 ug/dL (50-175) L Total Iron Binding Capacity 165 ug/dL (250-450) L Percent Iron Saturation 15 % (15-50) Unsaturated Iron Binding 141 ug/dL (112-346) Ferritin 248 NG/ML (8-388) Total Bilirubin 0.6 MG/DL (0.2-1.0) Aspartate Amino Transf (AST/SGOT) 19 U/L (15-37) Alanine Aminotransferase (ALT/SGPT) 15 U/L (12-78) Alkaline Phosphatase 193 U/L (46-116) H Troponin I 0.025 ng/mL (0.000-0.056) Total Protein 6.2 G/DL (6.4-8.2) L Albumin 2.0 G/DL (3.4-5.0) L Globulin 4.2 g/dL Albumin/Globulin Ratio 0.5 (1.0-2.7) L Carcinoembryonic Antigen Pending Vitamin B12 Level 905 PG/ML (193-986) Folate 32.3 NG/ML (8.6-58.9) Thyroid Stimulating Hormone (TSH) 0.607 uiU/mL (0.358-3.740) Free Thyroxine 1.31 NG/DL (0.76-1.46) Digoxin Level 0.6 NG/ML (0.5-2.0) Microbiology Date/Time Source Procedure Growth Status 03/24/18 21:15 Blood Blood Culture - Preliminary NO GROWTH AFTER 24 HOURS Resulted 03/24/18 21:00 Blood Blood Culture - Preliminary NO GROWTH AFTER 24 HOURS Resulted 03/24/18 21:30 Rectum Received Objective HEENT: Head and neck showed no jugular venous distention. LUNGS: Coarse rhonchi. CARDIOVASCULAR: Irregularly irregular tachycardic S1 and S2 with no gallop or murmur ABDOMEN: Soft. EXTREMITIES: No pitting edema. Gary Bay MD Mar 26, 2018 14:47
--- NOTE | 2018-03-26 14:49 | Infectious Diseases Prog Note ---
Assessment/Plan Problems: (1) Healthcare-associated pneumonia Assessment & Plan: with B/L interstitial infiltrates , continue aztreonam and vancomycin empirically , will send sputum culture if he produces any . monitor CXR . aspiration precaution and swallow eval (2) STUART (acute kidney injury) Assessment & Plan: improving continue gentle hydration , and renally dosed meds as per pharmacy (3) Trochanteric fracture of left femur Assessment & Plan: S/P ORIF, X ray no hardware failure (4) Rapid atrial fibrillation Assessment & Plan: on diltiazem , cardiology is following (5) Encephalopathy Assessment & Plan: due to the above, continue supportive care, stop cefepime and monitor closely Subjective Constitutional: Reports: no symptoms HEENT: Reports: no symptoms Respiratory: Reports: no symptoms Breasts: Reports: no symptoms Cardiovascular: Reports: no symptoms Gastrointestinal/Abdominal: Reports: no symptoms Genitourinary: Reports: no symptoms Neurologic: Reports: no symptoms Psychiatric: Reports: no symptoms Skin: Reports: no symptoms Endocrine: Reports: no symptoms Hematologic: Reports: no symptoms Musculoskeletal: Reports: no symptoms Allergies: Coded Allergies: MORPHINE (Verified Allergy, Unknown, 03/25/18) PENICILLINS (Verified Allergy, Unknown, 03/05/18) Subjective he is more awake and responsive, was asking for food Objective Vital Signs Last 24 Hour Vital Signs Date Time Temp Pulse Resp B/P (MAP) Pulse Ox O2 Delivery O2 Flow Rate FiO2 03/26/18 14:00 100 14 133/73 (93) 100 03/26/18 13:00 98.0 88 14 137/81 (99) 100 03/26/18 12:00 2.0 03/26/18 12:00 Nasal Cannula 2.0 03/26/18 12:00 96 17 143/96 (112) 100 03/26/18 12:00 97 03/26/18 11:00 105 15 119/70 (86) 100 03/26/18 10:00 91 13 117/74 (88) 100 03/26/18 09:00 101 16 143/87 (105) 100 03/26/18 08:42 93 03/26/18 08:00 2.0 03/26/18 08:00 97.0 85 20 142/88 (106) 97 03/26/18 08:00 Nasal Cannula 2.0 12/4/18 08:00 94 03/26/18 07:00 93 16 148/73 (98) 100 03/26/18 06:28 83 134/86 03/26/18 06:00 93 16 135/86 (102) 100 03/26/18 05:00 93 16 130/80 (97) 100 03/26/18 04:00 Nasal Cannula 2.0 03/26/18 04:00 98.6 90 16 138/93 (108) 100 03/26/18 04:00 88 03/26/18 04:00 2.0 03/26/18 03:00 93 16 145/82 (103) 100 03/26/18 02:00 92 16 139/73 (95) 100 03/26/18 01:00 90 16 130/70 (90) 100 03/26/18 00:00 Nasal Cannula 2.0 03/26/18 00:00 94 16 125/88 (100) 100 03/26/18 00:00 2.0 03/26/18 00:00 85 03/25/18 23:00 88 16 137/71 (93) 100 03/25/18 22:00 91 16 129/83 (98) 100 03/25/18 21:00 90 16 125/70 (88) 100 03/25/18 20:00 90 03/25/18 20:00 2.0 03/25/18 20:00 Nasal Cannula 2.0 03/25/18 20:00 98.8 92 16 132/69 (90) 100 03/25/18 19:43 85 117/83 03/25/18 19:00 96 16 119/68 (85) 100 03/25/18 18:00 93 14 117/72 (87) 99 03/25/18 17:05 108 120/76 03/25/18 17:00 95 13 119/61 (80) 99 03/25/18 16:00 98.9 100 16 132/105 (114) 99 03/25/18 16:00 93 03/25/18 16:00 2.0 03/25/18 16:00 Nasal Cannula 2.0 03/25/18 15:00 106 16 128/72 (90) 99 Height (Feet): 5 Height (Inches): 9.00 Weight (Pounds): 226 General Appearance: WD/WN, no acute distress HEENT: normocephalic, atraumatic, anicteric, mucous membranes moist, PERRL Respiratory/Chest: chest wall non-tender, normal breath sounds, no respiratory distress, no accessory muscle use, decreased breath sounds Breasts: no masses Cardiovascular: normal peripheral pulses, normal rate, regular rhythm, no gallop/murmur, no JVD Abdomen: normal bowel sounds, soft, non tender, no organomegaly, non distended , no mass, no scars Genitourinary: normal external genitalia Extremities: no cyanosis, no clubbing Skin: no rash, no lesions, no ulcers Neurologic/Psychiatric: alert, responsive Lymphatic: no neck adenopathy, no groin adenopathy Musculoskeletal: normal muscle bulk, no effusion Microbiology Date/Time Source Procedure Growth Status 03/24/18 21:15 Blood Blood Culture - Preliminary NO GROWTH AFTER 24 HOURS Resulted 03/24/18 21:00 Blood Blood Culture - Preliminary NO GROWTH AFTER 24 HOURS Resulted 03/24/18 21:30 Rectum Received Laboratory Tests Test 03/25/18 15:40 03/26/18 04:30 Ammonia 12 umol/L (11-32) White Blood Count 10.6 K/UL (4.8-10.8) Red Blood Count 2.78 M/UL (4.70-6.10) L Hemoglobin 8.2 G/DL (14.2-18.0) L Hematocrit 25.4 % (42.0-52.0) L Mean Corpuscular Volume 91 FL (80-99) Mean Corpuscular Hemoglobin 29.5 PG (27.0-31.0) Mean Corpuscular Hemoglobin Concent 32.3 G/DL (32.0-36.0) Red Cell Distribution Width 15.1 % (11.6-14.8) H Platelet Count 345 K/UL (150-450) Mean Platelet Volume 5.7 FL (6.5-10.1) L Neutrophils (%) (Auto) 79.8 % (45.0-75.0) H Lymphocytes (%) (Auto) 7.4 % (20.0-45.0) L Monocytes (%) (Auto) 8.8 % (1.0-10.0) Eosinophils (%) (Auto) 3.2 % (0.0-3.0) H Basophils (%) (Auto) 0.9 % (0.0-2.0) Reticulocyte Count 5.8 % (0.0-2.0) H Prothrombin Time 12.2 SEC (9.30-11.50) H Prothromb Time International Ratio 1.2 (0.9-1.1) H Activated Partial Thromboplast Time 36 SEC (23-33) H Sodium Level 139 MMOL/L (136-145) Potassium Level 4.1 MMOL/L (3.5-5.1) Chloride Level 108 MMOL/L (98-107) H Carbon Dioxide Level 23 MMOL/L (21-32) Anion Gap 8 mmol/L (5-15) Blood Urea Nitrogen 22 mg/dL (7-18) H Creatinine 1.3 MG/DL (0.55-1.30) Estimat Glomerular Filtration Rate mL/min (>60) Glucose Level 119 MG/DL (74-106) H Calcium Level 8.6 MG/DL (8.5-10.1) Iron Level 24 ug/dL (50-175) L Total Iron Binding Capacity 165 ug/dL (250-450) L Percent Iron Saturation 15 % (15-50) Unsaturated Iron Binding 141 ug/dL (112-346) Ferritin 248 NG/ML (8-388) Total Bilirubin 0.6 MG/DL (0.2-1.0) Aspartate Amino Transf (AST/SGOT) 19 U/L (15-37) Alanine Aminotransferase (ALT/SGPT) 15 U/L (12-78) Alkaline Phosphatase 193 U/L (46-116) H Troponin I 0.025 ng/mL (0.000-0.056) Total Protein 6.2 G/DL (6.4-8.2) L Albumin 2.0 G/DL (3.4-5.0) L Globulin 4.2 g/dL Albumin/Globulin Ratio 0.5 (1.0-2.7) L Carcinoembryonic Antigen Pending Vitamin B12 Level 905 PG/ML (193-986) Folate 32.3 NG/ML (8.6-58.9) Thyroid Stimulating Hormone (TSH) 0.607 uiU/mL (0.358-3.740) Free Thyroxine 1.31 NG/DL (0.76-1.46) Digoxin Level 0.6 NG/ML (0.5-2.0) Current Medications Medications (Trade) Dose Ordered Sig/Colin Route PRN Reason Start Time Stop Time Status Last Admin Dose Admin Acetaminophen (Tylenol) 650 mg Q6H PRN ORAL Mild Pain/Temp > 100.5 03/25/18 08:00 04/24/18 01:59 03/26/18 12:47 Acetaminophen/ Hydrocodone Bitart (Hunter 5/325) 1 tab Q6H PRN ORAL Severe Pain (Pain Scale 7-10) 03/25/18 08:00 04/01/18 01:59 Apixaban (Eliquis) 2.5 mg Q12HR ORAL 03/25/18 09:00 04/24/18 08:59 03/26/18 08:41 Atorvastatin Calcium (Lipitor) 20 mg BEDTIME ORAL 03/25/18 21:00 04/24/18 20:59 03/25/18 20:29 Aztreonam 2 gm/ Dextrose 110 ml @ 220 mls/hr Q8HR IVPB 03/25/18 14:00 04/01/18 13:59 03/26/18 06:19 Carbidopa/Levodopa (Sinemet 25/100) 1 tab THREE TIMES A DAY ORAL 03/25/18 09:00 04/24/18 08:59 03/26/18 13:25 Digoxin (Lanoxin) 0.25 mg DAILY ORAL 03/26/18 09:00 04/25/18 08:59 03/26/18 08:42 Diltiazem HCl 125 mg/Dextrose 125 ml @ 15 mls/hr Q8H20M IVPB 03/25/18 16:00 03/26/18 15:59 03/26/18 06:28 Gabapentin (Neurontin) 100 mg DAILY ORAL 03/25/18 09:00 04/24/18 08:59 03/26/18 08:41 Lactulose (Cephulac) 30 gm BID ORAL 03/25/18 09:00 04/24/18 08:59 03/26/18 08:40 Lorazepam (Ativan 2mg/ml 1ml) 1 mg Q8H PRN IV For Anxiety 03/25/18 11:01 04/01/18 11:00 03/26/18 13:04 Ondansetron HCl (Zofran) 4 mg Q4H PRN IVP Nausea & Vomiting 03/25/18 07:00 04/24/18 06:59 Pantoprazole (Protonix) 40 mg DAILY IVP 03/25/18 09:00 04/24/18 08:59 03/26/18 08:40 Sodium Chloride 1,000 ml @ 50 mls/hr Q20H IV 03/25/18 06:45 04/24/18 01:59 03/26/18 02:49 Tramadol HCl (Ultram) 50 mg Q8H PRN ORAL Moderate Pain (Pain Scale 4-6) 03/25/18 14:00 04/01/18 13:59 Vancomycin HCl (Vanco rx to dose) 1 ea DAILY MISC 03/25/18 09:00 04/24/18 08:59 03/26/18 08:41 Vancomycin HCl/ Dextrose 250 ml @ 167 mls/hr Q24H IVPB 03/25/18 23:00 03/30/18 22:59 03/25/18 23:10 Venlafaxine HCl (Effexor-XR) 37.5 mg DAILY ORAL 03/25/18 09:00 04/24/18 08:59 03/26/18 08:40 Srini Sam M.D. Mar 26, 2018 14:49
--- NOTE | 2018-03-26 16:20 | GI Progress Note ---
Assessment/Plan Problems: (1) Anemia ICD Codes: D64.9 - Anemia, unspecified SNOMED: 368865789 (2) Encephalopathy ICD Codes: G93.40 - Encephalopathy, unspecified SNOMED: 68528565 Status: unchanged Status Narrative Discussed with Dr. Barrera. Assessment/Plan Head CT reviewed >> negative for bleed or mass NGTFs per RD to goal, will consider PEG if necessary anemia work up OB stool r/o GI bleed monitor H&H, prn transfusions bowel regime ppi abx fu labs The patient was seen and examined at bedside and all new and available data was reviewed in the patients chart. I agree with the above findings, impression and plan. (Patient seen earlier today. Signature stamp does not reflect patient encounter time.). - Olegario Barrera MD Subjective Subjective limited Objective Last 24 Hour Vital Signs Date Time Temp Pulse Resp B/P (MAP) Pulse Ox O2 Delivery O2 Flow Rate FiO2 03/26/18 15:00 101 14 137/74 (95) 100 03/26/18 14:00 100 14 133/73 (93) 100 03/26/18 13:00 98.0 88 14 137/81 (99) 100 03/26/18 12:00 2.0 03/26/18 12:00 Nasal Cannula 2.0 03/26/18 12:00 96 17 143/96 (112) 100 03/26/18 12:00 97 03/26/18 11:00 105 15 119/70 (86) 100 03/26/18 10:00 91 13 117/74 (88) 100 03/26/18 09:00 101 16 143/87 (105) 100 03/26/18 08:42 93 03/26/18 08:00 2.0 03/26/18 08:00 97.0 85 20 142/88 (106) 97 03/26/18 08:00 Nasal Cannula 2.0 03/26/18 08:00 94 03/26/18 07:00 93 16 148/73 (98) 100 03/26/18 06:28 83 134/86 03/26/18 06:00 93 16 135/86 (102) 100 03/26/18 05:00 93 16 130/80 (97) 100 03/26/18 04:00 Nasal Cannula 2.0 03/26/18 04:00 98.6 90 16 138/93 (108) 100 03/26/18 04:00 88 03/26/18 04:00 2.0 03/26/18 03:00 93 16 145/82 (103) 100 03/26/18 02:00 92 16 139/73 (95) 100 03/26/18 01:00 90 16 130/70 (90) 100 03/26/18 00:00 Nasal Cannula 2.0 03/26/18 00:00 94 16 125/88 (100) 100 03/26/18 00:00 2.0 03/26/18 00:00 85 03/25/18 23:00 88 16 137/71 (93) 100 03/25/18 22:00 91 16 129/83 (98) 100 03/25/18 21:00 90 16 125/70 (88) 100 03/25/18 20:00 90 03/25/18 20:00 2.0 03/25/18 20:00 Nasal Cannula 2.0 03/25/18 20:00 98.8 92 16 132/69 (90) 100 03/25/18 19:43 85 117/83 03/25/18 19:00 96 16 119/68 (85) 100 03/25/18 18:00 93 14 117/72 (87) 99 03/25/18 17:05 108 120/76 03/25/18 17:00 95 13 119/61 (80) 99 Intake and Output 03/25/18 03/26/18 19:00 07:00 Intake Total 910 ml 1245.00 ml Output Total 230 ml 600 ml Balance 680 ml 645.00 ml Intake IV Total 910 ml 1245.00 ml Output Urine Total 230 ml 600 ml Laboratory Tests Test 03/26/18 04:30 White Blood Count 10.6 K/UL (4.8-10.8) Red Blood Count 2.78 M/UL (4.70-6.10) L Hemoglobin 8.2 G/DL (14.2-18.0) L Hematocrit 25.4 % (42.0-52.0) L Mean Corpuscular Volume 91 FL (80-99) Mean Corpuscular Hemoglobin 29.5 PG (27.0-31.0) Mean Corpuscular Hemoglobin Concent 32.3 G/DL (32.0-36.0) Red Cell Distribution Width 15.1 % (11.6-14.8) H Platelet Count 345 K/UL (150-450) Mean Platelet Volume 5.7 FL (6.5-10.1) L Neutrophils (%) (Auto) 79.8 % (45.0-75.0) H Lymphocytes (%) (Auto) 7.4 % (20.0-45.0) L Monocytes (%) (Auto) 8.8 % (1.0-10.0) Eosinophils (%) (Auto) 3.2 % (0.0-3.0) H Basophils (%) (Auto) 0.9 % (0.0-2.0) Reticulocyte Count 5.8 % (0.0-2.0) H Prothrombin Time 12.2 SEC (9.30-11.50) H Prothromb Time International Ratio 1.2 (0.9-1.1) H Activated Partial Thromboplast Time 36 SEC (23-33) H Sodium Level 139 MMOL/L (136-145) Potassium Level 4.1 MMOL/L (3.5-5.1) Chloride Level 108 MMOL/L (98-107) H Carbon Dioxide Level 23 MMOL/L (21-32) Anion Gap 8 mmol/L (5-15) Blood Urea Nitrogen 22 mg/dL (7-18) H Creatinine 1.3 MG/DL (0.55-1.30) Estimat Glomerular Filtration Rate mL/min (>60) Glucose Level 119 MG/DL (74-106) H Calcium Level 8.6 MG/DL (8.5-10.1) Iron Level 24 ug/dL (50-175) L Total Iron Binding Capacity 165 ug/dL (250-450) L Percent Iron Saturation 15 % (15-50) Unsaturated Iron Binding 141 ug/dL (112-346) Ferritin 248 NG/ML (8-388) Total Bilirubin 0.6 MG/DL (0.2-1.0) Aspartate Amino Transf (AST/SGOT) 19 U/L (15-37) Alanine Aminotransferase (ALT/SGPT) 15 U/L (12-78) Alkaline Phosphatase 193 U/L (46-116) H Troponin I 0.025 ng/mL (0.000-0.056) Total Protein 6.2 G/DL (6.4-8.2) L Albumin 2.0 G/DL (3.4-5.0) L Globulin 4.2 g/dL Albumin/Globulin Ratio 0.5 (1.0-2.7) L Carcinoembryonic Antigen Pending Vitamin B12 Level 905 PG/ML (193-986) Folate 32.3 NG/ML (8.6-58.9) Thyroid Stimulating Hormone (TSH) 0.607 uiU/mL (0.358-3.740) Free Thyroxine 1.31 NG/DL (0.76-1.46) Digoxin Level 0.6 NG/ML (0.5-2.0) Height (Feet): 5 Height (Inches): 9.00 Weight (Pounds): 226 General Appearance: no apparent distress Cardiovascular: normal rate Respiratory/Chest: no respiratory distress Abdominal Exam: other - NGT Kati Gabriel NP Mar 26, 2018 16:20
[2018-03-26] MEDS: dilTIAZem HCl 60mg tab NG SCH (18:15)
--- NOTE | 2018-03-26 19:43 | Cardiology Report ---
APPROVED REPORT EKG Measurement Heart [id number] Atrial fibrillation with rapid ventricular response Abnormal ECG
[2018-03-26] MEDS: Atorvastatin 20mg tab ORAL SCH (20:36)
[2018-03-26] MEDS ORDERED: NS 275ml ONE (22:47)
[2018-03-26] MEDS ORDERED: Tubing IV Secondary IV ONE (22:51)
[2018-03-26] MEDS: Vancomycin 1.5gm/D5W 250ml 250 ML IVPB SCH (22:55)
[2018-03-27] VITALS (18 sets, daily range): BP systolic 113–135; BP diastolic 60–90
[2018-03-27] MEDS: dilTIAZem HCl 60mg tab NG SCH ×5 (00:14→23:31)
[2018-03-27 06:08] LABS: BASOPHILS % (AUTO) 0.3 % (0.0-2.0); EOSINOPHILS % (AUTO) 3.2 % (0.0-3.0); HEMATOCRIT 26.4 % (42.0-52.0); HEMOGLOBIN 8.3 G/DL (14.2-18.0); MEAN CORPUSCULAR VOLUME 92 FL (80-99); MONOCYTES % (AUTO) 9.3 % (1.0-10.0); NEUTROPHILS % (AUTO) 79.2 % (45.0-75.0); PLATELET COUNT 315 K/UL (150-450); RED BLOOD COUNT 2.86 M/UL (4.70-6.10); RED CELL DISTRIBUTION WIDTH 15.1 % (11.6-14.8); WHITE BLOOD COUNT 10.3 K/UL (4.8-10.8)
[2018-03-27] MEDS: Aztreonam Inj 2 GM in D5W 110 ML IVPB SCH ×3 (06:09→21:22)
[2018-03-27 06:21] LABS: ANION GAP 11 mmol/L (5-15); BLOOD UREA NITROGEN 21 mg/dL (7-18); CALCIUM 8.6 MG/DL (8.5-10.1); CARBON DIOXIDE 21 MMOL/L (21-32); CHLORIDE 108 MMOL/L (98-107); CREATININE 1.3 MG/DL (0.55-1.30); POTASSIUM 3.5 MMOL/L (3.5-5.1); SODIUM 140 MMOL/L (136-145)
[2018-03-27] MEDS: Lactulose 20gm/30ml UDC ORAL SCH ×2 (09:00→18:00)
[2018-03-27] MEDS: Pantoprazole Inj IVP SCH (09:04)
[2018-03-27] MEDS: Venlafaxine XR 37.5mg cap ORAL SCH (09:04)
[2018-03-27] MEDS: Eliquis 2.5mg tablet ORAL SCH ×2 (09:04→20:17)
[2018-03-27] MEDS: Levodopa/Carbidopa 25/100 tab ORAL SCH ×3 (09:04→18:10)
--- NOTE | 2018-03-27 09:11 | General Progress Note ---
Assessment/Plan Status: stable Assessment/Plan 1. A Fib with RVR - improved HR in 80's on oral diltiazem and Dig. cardiology is following. May transfer to Tele if OK with cardiology. 2. Pneumonia - cont IV Abx. will have ID follow the patient as well. Swollowing eval pending. 3. Parkinson dx - cont home med. 4. HLD - cont home med. 5. Anemia - follow up CBC. cont protonix 40 mg IV daily. 6. Stool hemocult positive at rehab - will has GI see the patient as well. Stool hemocult pending. 7. Recent Hip surgery in previous admission - venous u/s of lower ext negative for DVT. Subjective Date patient seen: Mar 27, 2018 Time patient seen: 09:00 Constitutional: Reports: weakness HEENT: Reports: no symptoms Cardiovascular: Reports: no symptoms Respiratory: Reports: no symptoms Gastrointestinal/Abdominal: Reports: no symptoms Genitourinary: Reports: no symptoms Neurologic/Psychiatric: Reports: no symptoms Endocrine: Reports: no symptoms Hematologic/Lymphatic: Reports: no symptoms Allergies: Coded Allergies: MORPHINE (Verified Allergy, Unknown, 03/25/18) PENICILLINS (Verified Allergy, Unknown, 03/05/18) Subjective His HR has improved to 80's with Dig and oral Diltiazem . He is in ICU and cleared to transfer to tele if OK with cardiology. He is awake and he has NG tube in place. his swallowing eval was not done yet. no sob or chest pain. no fever or chills. Objective Last 24 Hour Vital Signs Date Time Temp Pulse Resp B/P (MAP) Pulse Ox O2 Delivery O2 Flow Rate FiO2 03/27/18 09:04 88 03/27/18 08:00 77 03/27/18 08:00 98.2 78 15 123/64 (83) 100 03/27/18 08:00 Nasal Cannula 2.0 03/27/18 07:00 84 15 113/65 (81) 100 03/27/18 06:09 95 125/76 03/27/18 06:00 87 15 125/64 (84) 100 03/27/18 05:00 96 15 135/80 (98) 100 03/27/18 04:00 93 03/27/18 04:00 Nasal Cannula 2.0 03/27/18 04:00 93 15 129/68 (88) 100 03/27/18 03:00 93 15 134/70 (91) 100 03/27/18 02:00 97.8 87 15 123/77 (92) 99 03/27/18 01:00 76 15 128/72 (90) 100 03/27/18 00:14 88 122/80 03/27/18 00:00 82 15 133/80 (97) 100 03/27/18 00:00 96 03/27/18 00:00 Nasal Cannula 2.0 03/26/18 23:00 88 15 129/73 (91) 100 03/26/18 22:00 89 15 127/75 (92) 100 03/26/18 21:00 84 15 122/70 (87) 100 03/26/18 20:00 88 03/26/18 20:00 97.8 87 15 112/74 (87) 100 03/26/18 20:00 Nasal Cannula 2.0 03/26/18 20:00 2.0 03/26/18 19:00 87 15 128/72 (90) 99 03/26/18 18:15 93 132/77 03/26/18 18:00 91 15 128/79 (95) 100 03/26/18 17:00 93 15 132/77 (95) 100 03/26/18 16:00 97.5 91 15 137/74 (95) 100 03/26/18 16:00 Nasal Cannula 2.0 03/26/18 16:00 2.0 03/26/18 16:00 93 03/26/18 15:00 101 14 137/74 (95) 100 03/26/18 14:00 100 14 133/73 (93) 100 03/26/18 13:00 98.0 88 14 137/81 (99) 100 03/26/18 12:00 2.0 03/26/18 12:00 Nasal Cannula 2.0 03/26/18 12:00 96 17 143/96 (112) 100 03/26/18 12:00 97 03/26/18 11:00 105 15 119/70 (86) 100 03/26/18 10:00 91 13 117/74 (88) 100 Intake and Output 03/26/18 03/27/18 19:00 07:00 Intake Total 820 ml 1305 ml Output Total 1600 ml 1080 ml Balance -780 ml 225 ml Intake Free Water 60 ml IV Total 820 ml 710 ml Tube Feeding 435 ml Other 100 ml Output Urine Total 1600 ml 1080 ml Laboratory Tests 03/27/18 04:00: Stool Occult Blood [Pending] 03/27/18 05:30: White Blood Count 10.3, Red Blood Count 2.86L, Hemoglobin 8.3L, Hematocrit 26.4L , Mean Corpuscular Volume 92, Mean Corpuscular Hemoglobin 28.9, Mean Corpuscular Hemoglobin Concent 31.3L, Red Cell Distribution Width 15.1H, Platelet Count 315, Mean Platelet Volume 6.0L, Neutrophils (%) (Auto) 79.2H, Lymphocytes (%) (Auto) 8.0L, Monocytes (%) (Auto) 9.3, Eosinophils (%) (Auto) 3.2H, Basophils (%) (Auto) 0.3, Sodium Level 140, Potassium Level 3.5, Chloride Level 108H, Carbon Dioxide Level 21, Anion Gap 11, Blood Urea Nitrogen 21H, Creatinine 1.3, Estimat Glomerular Filtration Rate , Glucose Level 124H, Calcium Level 8.6, Digoxin Level 0.7 Height (Feet): 5 Height (Inches): 9.00 Weight (Pounds): 230 General Appearance: no apparent distress, alert EENT: normal ENT inspection Neck: non-tender, supple Cardiovascular: normal rate, regular rhythm Respiratory/Chest: lungs clear, normal breath sounds, no respiratory distress Abdomen: normal bowel sounds, non tender, soft Extremities: normal range of motion, non-tender Edema: no edema noted Arm (L), no edema noted Arm (R), no edema noted Leg (L), no edema noted Leg (R), no edema noted Pedal (L), no edema noted Pedal (R), no edema noted Generalized Neurologic: alert, responsive Skin: warm/dry Lymphatic: normal anterior cervical (L), normal anterior cervical (R), normal posterior cervical (L), normal posterior cervical (R), normal submandibular (L) , normal submandibular (R), normal supraclavicular (L), normal supraclavicular ( R), normal axillary (L), normal axillary (R), normal inguinal (L), normal inguinal (R), normal other Shelby Arrington MD Mar 27, 2018 09:11
--- NOTE | 2018-03-27 10:19 | Cardiac Electrophysiology PN ---
Assessment/Plan Assessment/Plan 1. Atrial fibrillation with rapid ventricular response. On Cardizem 60 q 6hr, Dig and Eliquis. Echo EF Nl on 03/06/18 Dig 0.7 2. History of hypertension. Stable on Cardizem 3. Sepsis with elevated white count, on IV antibiotic. 4. Congestive heart failure due to diastolic dysfunction. BNP of more than 6000. Echocardiogram Nl EF. Start Lasix 40 iv daily 5. Anemia, hemoglobin 9.1. 6. Parkinson disease and dementia. 7. Dysphagia 8. Hx of Left hip surgery. Get Stat D. Dimer. LE duplex is negative for DVT. If D. dimer negative, Cancel the CT angio DW RN Subjective Subjective In ICU off Cardizem drip. HR better. Confused. In restraints. NG feeding on going Objective Last 24 Hour Vital Signs Date Time Temp Pulse Resp B/P (MAP) Pulse Ox O2 Delivery O2 Flow Rate FiO2 03/27/18 09:04 88 03/27/18 09:00 88 15 125/66 (85) 100 03/27/18 08:00 77 03/27/18 08:00 98.2 78 15 123/64 (83) 100 03/27/18 08:00 Nasal Cannula 2.0 03/27/18 07:00 84 15 113/65 (81) 100 03/27/18 06:09 95 125/76 03/27/18 06:00 87 15 125/64 (84) 100 03/27/18 05:00 96 15 135/80 (98) 100 03/27/18 04:00 93 03/27/18 04:00 Nasal Cannula 2.0 03/27/18 04:00 93 15 129/68 (88) 100 03/27/18 03:00 93 15 134/70 (91) 100 03/27/18 02:00 97.8 87 15 123/77 (92) 99 03/27/18 01:00 76 15 128/72 (90) 100 03/27/18 00:14 88 122/80 03/27/18 00:00 82 15 133/80 (97) 100 03/27/18 00:00 96 03/27/18 00:00 Nasal Cannula 2.0 03/26/18 23:00 88 15 129/73 (91) 100 03/26/18 22:00 89 15 127/75 (92) 100 03/26/18 21:00 84 15 122/70 (87) 100 03/26/18 20:00 88 03/26/18 20:00 97.8 87 15 112/74 (87) 100 03/26/18 20:00 Nasal Cannula 2.0 03/26/18 20:00 2.0 03/26/18 19:00 87 15 128/72 (90) 99 03/26/18 18:15 93 132/77 03/26/18 18:00 91 15 128/79 (95) 100 03/26/18 17:00 93 15 132/77 (95) 100 03/26/18 16:00 97.5 91 15 137/74 (95) 100 03/26/18 16:00 Nasal Cannula 2.0 03/26/18 16:00 2.0 03/26/18 16:00 93 03/26/18 15:00 101 14 137/74 (95) 100 03/26/18 14:00 100 14 133/73 (93) 100 03/26/18 13:00 98.0 88 14 137/81 (99) 100 03/26/18 12:00 2.0 03/26/18 12:00 Nasal Cannula 2.0 03/26/18 12:00 96 17 143/96 (112) 100 03/26/18 12:00 97 03/26/18 11:00 105 15 119/70 (86) 100 Intake and Output 03/26/18 03/27/18 19:00 07:00 Intake Total 820 ml 1305 ml Output Total 1600 ml 1080 ml Balance -780 ml 225 ml Intake Free Water 60 ml IV Total 820 ml 710 ml Tube Feeding 435 ml Other 100 ml Output Urine Total 1600 ml 1080 ml Laboratory Tests Test 03/27/18 04:00 03/27/18 05:30 Stool Occult Blood Pending White Blood Count 10.3 K/UL (4.8-10.8) Red Blood Count 2.86 M/UL (4.70-6.10) L Hemoglobin 8.3 G/DL (14.2-18.0) L Hematocrit 26.4 % (42.0-52.0) L Mean Corpuscular Volume 92 FL (80-99) Mean Corpuscular Hemoglobin 28.9 PG (27.0-31.0) Mean Corpuscular Hemoglobin Concent 31.3 G/DL (32.0-36.0) L Red Cell Distribution Width 15.1 % (11.6-14.8) H Platelet Count 315 K/UL (150-450) Mean Platelet Volume 6.0 FL (6.5-10.1) L Neutrophils (%) (Auto) 79.2 % (45.0-75.0) H Lymphocytes (%) (Auto) 8.0 % (20.0-45.0) L Monocytes (%) (Auto) 9.3 % (1.0-10.0) Eosinophils (%) (Auto) 3.2 % (0.0-3.0) H Basophils (%) (Auto) 0.3 % (0.0-2.0) Sodium Level 140 MMOL/L (136-145) Potassium Level 3.5 MMOL/L (3.5-5.1) Chloride Level 108 MMOL/L (98-107) H Carbon Dioxide Level 21 MMOL/L (21-32) Anion Gap 11 mmol/L (5-15) Blood Urea Nitrogen 21 mg/dL (7-18) H Creatinine 1.3 MG/DL (0.55-1.30) Estimat Glomerular Filtration Rate mL/min (>60) Glucose Level 124 MG/DL (74-106) H Calcium Level 8.6 MG/DL (8.5-10.1) Digoxin Level 0.7 NG/ML (0.5-2.0) Microbiology Date/Time Source Procedure Growth Status 03/24/18 21:15 Blood Blood Culture - Preliminary NO GROWTH AFTER 48 HOURS Resulted 03/24/18 21:00 Blood Blood Culture - Preliminary NO GROWTH AFTER 48 HOURS Resulted 03/24/18 21:30 Rectum - Final NO CARBAPENEM-RESISTANT ENTEROBACTERI... Complete 03/24/18 21:30 Rectum VRE Culture - Final Enterococcus Faecalis - Vre Complete Objective HEENT: No jugular venous distention.NG tube is in. LUNGS: Coarse rhonchi. CARDIOVASCULAR: Irregularly irregular S1 and S2 with no murmur ABDOMEN: Soft. EXTREMITIES: No pitting edema. Gary Bay MD Mar 27, 2018 10:19
--- NOTE | 2018-03-27 10:46 | General Progress Note ---
Assessment/Plan Problem List: (1) Rapid atrial fibrillation ICD Codes: I48.91 - Unspecified atrial fibrillation SNOMED: 553954417 (2) Leukocytosis ICD Codes: D72.829 - Elevated white blood cell count, unspecified SNOMED: 471228695, 090525957 (3) Encephalopathy ICD Codes: G93.40 - Encephalopathy, unspecified SNOMED: 39182768 (4) Anemia ICD Codes: D64.9 - Anemia, unspecified SNOMED: 707778335 (5) CKD (chronic kidney disease) ICD Codes: N18.9 - Chronic kidney disease, unspecified SNOMED: 010214030 Assessment/Plan fu H&H ppi fu stool ob NGTF fu cardiology Subjective ROS Limited/Unobtainable: No Allergies: Coded Allergies: MORPHINE (Verified Allergy, Unknown, 03/25/18) PENICILLINS (Verified Allergy, Unknown, 03/05/18) Objective Last 24 Hour Vital Signs Date Time Temp Pulse Resp B/P (MAP) Pulse Ox O2 Delivery O2 Flow Rate FiO2 03/27/18 10:00 80 15 122/64 (83) 100 03/27/18 09:04 88 03/27/18 09:00 88 15 125/66 (85) 100 03/27/18 08:00 77 03/27/18 08:00 98.2 78 15 123/64 (83) 100 03/27/18 08:00 Nasal Cannula 2.0 03/27/18 07:00 84 15 113/65 (81) 100 03/27/18 06:09 95 125/76 03/27/18 06:00 87 15 125/64 (84) 100 03/27/18 05:00 96 15 135/80 (98) 100 03/27/18 04:00 93 03/27/18 04:00 Nasal Cannula 2.0 03/27/18 04:00 93 15 129/68 (88) 100 03/27/18 03:00 93 15 134/70 (91) 100 03/27/18 02:00 97.8 87 15 123/77 (92) 99 03/27/18 01:00 76 15 128/72 (90) 100 03/27/18 00:14 88 122/80 03/27/18 00:00 82 15 133/80 (97) 100 03/27/18 00:00 96 03/27/18 00:00 Nasal Cannula 2.0 03/26/18 23:00 88 15 129/73 (91) 100 03/26/18 22:00 89 15 127/75 (92) 100 03/26/18 21:00 84 15 122/70 (87) 100 03/26/18 20:00 88 03/26/18 20:00 97.8 87 15 112/74 (87) 100 03/26/18 20:00 Nasal Cannula 2.0 03/26/18 20:00 2.0 03/26/18 19:00 87 15 128/72 (90) 99 03/26/18 18:15 93 132/77 03/26/18 18:00 91 15 128/79 (95) 100 03/26/18 17:00 93 15 132/77 (95) 100 03/26/18 16:00 97.5 91 15 137/74 (95) 100 03/26/18 16:00 Nasal Cannula 2.0 03/26/18 16:00 2.0 03/26/18 16:00 93 03/26/18 15:00 101 14 137/74 (95) 100 03/26/18 14:00 100 14 133/73 (93) 100 03/26/18 13:00 98.0 88 14 137/81 (99) 100 03/26/18 12:00 2.0 03/26/18 12:00 Nasal Cannula 2.0 03/26/18 12:00 96 17 143/96 (112) 100 03/26/18 12:00 97 03/26/18 11:00 105 15 119/70 (86) 100 Intake and Output 03/26/18 03/27/18 19:00 07:00 Intake Total 820 ml 1305 ml Output Total 1600 ml 1080 ml Balance -780 ml 225 ml Intake Free Water 60 ml IV Total 820 ml 710 ml Tube Feeding 435 ml Other 100 ml Output Urine Total 1600 ml 1080 ml Laboratory Tests 03/27/18 04:00: Stool Occult Blood [Pending] 03/27/18 05:30: White Blood Count 10.3, Red Blood Count 2.86L, Hemoglobin 8.3L, Hematocrit 26.4L , Mean Corpuscular Volume 92, Mean Corpuscular Hemoglobin 28.9, Mean Corpuscular Hemoglobin Concent 31.3L, Red Cell Distribution Width 15.1H, Platelet Count 315, Mean Platelet Volume 6.0L, Neutrophils (%) (Auto) 79.2H, Lymphocytes (%) (Auto) 8.0L, Monocytes (%) (Auto) 9.3, Eosinophils (%) (Auto) 3.2H, Basophils (%) (Auto) 0.3, Sodium Level 140, Potassium Level 3.5, Chloride Level 108H, Carbon Dioxide Level 21, Anion Gap 11, Blood Urea Nitrogen 21H, Creatinine 1.3, Estimat Glomerular Filtration Rate , Glucose Level 124H, Calcium Level 8.6, Digoxin Level 0.7 Height (Feet): 5 Height (Inches): 9.00 Weight (Pounds): 230 General Appearance: lethargic, confused EENT: normal ENT inspection Neck: supple Cardiovascular: normal rate Respiratory/Chest: decreased breath sounds Abdomen: normal bowel sounds, non tender, soft Extremities: non-tender Olegario Barrera MD Mar 27, 2018 10:46
--- NOTE | 2018-03-27 16:30 | Infectious Diseases Prog Note ---
Assessment/Plan Problems: (1) Healthcare-associated pneumonia Assessment & Plan: with B/L interstitial infiltrates , continue aztreonam and vancomycin empirically , monitor CXR . aspiration precaution and swallow eval when fully awake (2) STUART (acute kidney injury) Assessment & Plan: improving continue gentle hydration , and renally dosed meds as per pharmacy (3) Trochanteric fracture of left femur Assessment & Plan: S/P ORIF, X ray no hardware failure (4) Rapid atrial fibrillation Assessment & Plan: on diltiazem , cardiology is following (5) Encephalopathy Assessment & Plan: due to the above, continue supportive care, monitor closely Subjective ROS Limited/Unobtainable: Yes Allergies: Coded Allergies: MORPHINE (Verified Allergy, Unknown, 03/25/18) PENICILLINS (Verified Allergy, Unknown, 03/05/18) Subjective he is more awake and responsive, but confused and incoherent , still has NGT in. afebrile Objective Vital Signs Last 24 Hour Vital Signs Date Time Temp Pulse Resp B/P (MAP) Pulse Ox O2 Delivery O2 Flow Rate FiO2 03/27/18 15:00 77 18 135/68 (90) 100 03/27/18 14:00 74 18 120/66 (84) 100 03/27/18 13:00 78 17 122/65 (84) 100 03/27/18 12:00 98.3 82 15 128/65 (86) 100 03/27/18 12:00 98 126/66 03/27/18 12:00 90 03/27/18 12:00 Nasal Cannula 2.0 03/27/18 11:00 77 15 126/66 (86) 100 03/27/18 10:00 80 15 122/64 (83) 100 03/27/18 09:04 88 03/27/18 09:00 88 15 125/66 (85) 100 03/27/18 08:00 77 03/27/18 08:00 98.2 78 15 123/64 (83) 100 03/27/18 08:00 Nasal Cannula 2.0 03/27/18 07:00 84 15 113/65 (81) 100 03/27/18 06:09 95 125/76 03/27/18 06:00 87 15 125/64 (84) 100 03/27/18 05:00 96 15 135/80 (98) 100 03/27/18 04:00 93 03/27/18 04:00 Nasal Cannula 2.0 03/27/18 04:00 93 15 129/68 (88) 100 03/27/18 03:00 93 15 134/70 (91) 100 03/27/18 02:00 97.8 87 15 123/77 (92) 99 03/27/18 01:00 76 15 128/72 (90) 100 03/27/18 00:14 88 122/80 03/27/18 00:00 82 15 133/80 (97) 100 03/27/18 00:00 96 03/27/18 00:00 Nasal Cannula 2.0 03/26/18 23:00 88 15 129/73 (91) 100 03/26/18 22:00 89 15 127/75 (92) 100 03/26/18 21:00 84 15 122/70 (87) 100 03/26/18 20:00 88 03/26/18 20:00 97.8 87 15 112/74 (87) 100 03/26/18 20:00 Nasal Cannula 2.0 03/26/18 20:00 2.0 03/26/18 19:00 87 15 128/72 (90) 99 03/26/18 18:15 93 132/77 03/26/18 18:00 91 15 128/79 (95) 100 03/26/18 17:00 93 15 132/77 (95) 100 Height (Feet): 5 Height (Inches): 9.00 Weight (Pounds): 230 General Appearance: WD/WN, no acute distress HEENT: normocephalic, atraumatic, anicteric, mucous membranes moist, PERRL, EOMI, pharynx normal, supple, no JVD Respiratory/Chest: chest wall non-tender, normal breath sounds, no respiratory distress, no accessory muscle use, decreased breath sounds Cardiovascular: normal peripheral pulses, normal rate, regular rhythm, no gallop/murmur, no JVD Abdomen: normal bowel sounds, soft, non tender, no organomegaly, non distended , no mass, no scars Extremities: no cyanosis, no clubbing Skin: no rash, no lesions, no ulcers Neurologic/Psychiatric: alert, responsive, other - confused Lymphatic: no neck adenopathy, no groin adenopathy Musculoskeletal: normal muscle bulk, no effusion Microbiology Date/Time Source Procedure Growth Status 03/24/18 21:15 Blood Blood Culture - Preliminary NO GROWTH AFTER 48 HOURS Resulted 03/24/18 21:00 Blood Blood Culture - Preliminary NO GROWTH AFTER 48 HOURS Resulted 03/24/18 21:30 Rectum - Final NO CARBAPENEM-RESISTANT ENTEROBACTERI... Complete 03/24/18 21:30 Rectum VRE Culture - Final Enterococcus Faecalis - Vre Complete Laboratory Tests Test 03/27/18 04:00 03/27/18 05:30 03/27/18 10:45 Stool Occult Blood Positive (NEGATIVE) White Blood Count 10.3 K/UL (4.8-10.8) Red Blood Count 2.86 M/UL (4.70-6.10) L Hemoglobin 8.3 G/DL (14.2-18.0) L Hematocrit 26.4 % (42.0-52.0) L Mean Corpuscular Volume 92 FL (80-99) Mean Corpuscular Hemoglobin 28.9 PG (27.0-31.0) Mean Corpuscular Hemoglobin Concent 31.3 G/DL (32.0-36.0) L Red Cell Distribution Width 15.1 % (11.6-14.8) H Platelet Count 315 K/UL (150-450) Mean Platelet Volume 6.0 FL (6.5-10.1) L Neutrophils (%) (Auto) 79.2 % (45.0-75.0) H Lymphocytes (%) (Auto) 8.0 % (20.0-45.0) L Monocytes (%) (Auto) 9.3 % (1.0-10.0) Eosinophils (%) (Auto) 3.2 % (0.0-3.0) H Basophils (%) (Auto) 0.3 % (0.0-2.0) Sodium Level 140 MMOL/L (136-145) Potassium Level 3.5 MMOL/L (3.5-5.1) Chloride Level 108 MMOL/L (98-107) H Carbon Dioxide Level 21 MMOL/L (21-32) Anion Gap 11 mmol/L (5-15) Blood Urea Nitrogen 21 mg/dL (7-18) H Creatinine 1.3 MG/DL (0.55-1.30) Estimat Glomerular Filtration Rate mL/min (>60) Glucose Level 124 MG/DL (74-106) H Calcium Level 8.6 MG/DL (8.5-10.1) Digoxin Level 0.7 NG/ML (0.5-2.0) D-Dimer 2.34 mg/L FEU (0.00-0.49) H Current Medications Medications (Trade) Dose Ordered Sig/Colin Route PRN Reason Start Time Stop Time Status Last Admin Dose Admin Acetaminophen (Tylenol) 650 mg Q6H PRN ORAL Mild Pain/Temp > 100.5 03/27/18 17:00 04/24/18 16:59 Acetaminophen/ Hydrocodone Bitart ([place] 5/325) 1 tab Q6H PRN ORAL Severe Pain (Pain Scale 7-10) 03/27/18 20:00 04/01/18 01:59 UNV Apixaban (Eliquis) 2.5 mg Q12HR ORAL 03/27/18 21:00 04/24/18 08:59 Atorvastatin Calcium (Lipitor) 20 mg BEDTIME ORAL 03/27/18 21:00 04/24/18 20:59 Aztreonam 2 gm/ Dextrose 110 ml @ 220 mls/hr Q8HR IVPB 03/27/18 22:00 04/01/18 13:59 Carbidopa/Levodopa (Sinemet 25/100) 1 tab THREE TIMES A DAY ORAL 03/27/18 18:00 04/24/18 08:59 UNV Digoxin (Lanoxin) 0.25 mg DAILY ORAL 03/28/18 09:00 04/25/18 08:59 UNV Diltiazem HCl (Cardizem) 60 mg EVERY 6 HOURS NG 03/27/18 18:00 04/25/18 17:59 UNV Gabapentin (Neurontin) 100 mg DAILY ORAL 03/28/18 09:00 04/24/18 08:59 UNV Lactulose (Cephulac) 30 gm BID ORAL 03/27/18 18:00 04/24/18 08:59 UNV Lorazepam (Ativan 2mg/ml 1ml) 1 mg Q8H PRN IV For Anxiety 03/27/18 19:15 04/01/18 11:00 UNV Ondansetron HCl (Zofran) 4 mg Q4H PRN IVP Nausea & Vomiting 03/27/18 19:00 04/24/18 06:59 UNV Pantoprazole (Protonix) 40 mg DAILY IVP 03/28/18 09:00 04/24/18 08:59 UNV Sodium Chloride 1,000 ml @ 50 mls/hr Q20H IV 03/27/18 16:30 04/24/18 01:59 UNV Tramadol HCl (Ultram) 50 mg Q8H PRN ORAL Moderate Pain (Pain Scale 4-6) 03/27/18 22:00 04/01/18 13:59 UNV Vancomycin HCl (Vanco rx to dose) 1 ea DAILY PRN MISC . 03/28/18 09:00 04/26/18 09:14 UNV Vancomycin HCl/ Dextrose 250 ml @ 167 mls/hr Q24H IVPB 03/27/18 23:00 03/30/18 22:59 UNV Venlafaxine HCl (Effexor-XR) 37.5 mg DAILY ORAL 03/28/18 09:00 04/24/18 08:59 UNV Srini Sam M.D. Mar 27, 2018 16:30
[2018-03-27] MEDS ORDERED: traMADol 50mg tab ORAL PRN (17:00)
[2018-03-27] MEDS ORDERED: LORazepam Inj 2mg/ml 1ml IV PRN (17:00)
[2018-03-27] MEDS ORDERED: Norco 5mg/325mg tab ORAL PRN (17:00)
[2018-03-27] MEDS: Atorvastatin 20mg tab ORAL SCH (20:17)
[2018-03-27] MEDS: Vancomycin 1.5gm/D5W 250ml 250 ML IVPB SCH (23:30)
[2018-03-28] VITALS: BP 128/70
[2018-03-28 04:00] VITALS: BP 127/73
[2018-03-28] MEDS: Aztreonam Inj 2 GM in D5W 110 ML IVPB SCH ×3 (05:07→21:27)
[2018-03-28] MEDS: dilTIAZem HCl 60mg tab NG SCH ×3 (05:08→18:00)
[2018-03-28 05:16] LABS: HEMATOCRIT 24.7 % (42.0-52.0); HEMOGLOBIN 7.8 G/DL (14.2-18.0); MEAN CORPUSCULAR VOLUME 91 FL (80-99); PLATELET COUNT 293 K/UL (150-450); RED CELL DISTRIBUTION WIDTH 14.9 % (11.6-14.8); WHITE BLOOD COUNT 8.1 K/UL (4.8-10.8)
[2018-03-28 05:38] LABS: ANION GAP 10 mmol/L (5-15); BLOOD UREA NITROGEN 25 mg/dL (7-18); CALCIUM 8.5 MG/DL (8.5-10.1); CARBON DIOXIDE 23 MMOL/L (21-32); CHLORIDE 107 MMOL/L (98-107); CREATININE 1.4 MG/DL (0.55-1.30); POTASSIUM 3.9 MMOL/L (3.5-5.1); SODIUM 140 MMOL/L (136-145)
[2018-03-28 08:00] VITALS: BP 152/80
[2018-03-28] MEDS: Eliquis 2.5mg tablet ORAL SCH ×2 (09:00→21:00)
[2018-03-28] MEDS: Venlafaxine XR 37.5mg cap ORAL SCH (09:00)
[2018-03-28] MEDS: Lactulose 20gm/30ml UDC ORAL SCH ×2 (09:00→18:00)
[2018-03-28] MEDS: Levodopa/Carbidopa 25/100 tab ORAL SCH ×3 (09:00→18:00)
--- NOTE | 2018-03-28 10:11 | General Progress Note ---
Assessment/Plan Status: stable Assessment/Plan 1. A Fib with RVR - slightly tach at 102 today. on oral diltiazem and Dig. cardiology is following. He is in step down. 2. Pneumonia - cont IV Abx. will have ID follow the patient as well. Swollowing eval pending. 3. Parkinson dx - cont home med. 4. HLD - cont home med. 5. Anemia - follow up CBC. cont protonix 40 mg IV daily. Stool hemocult positive. will f/u with GI. 6. Stool hemocult positive at rehab - Stool hemocult positive today. 7. Recent Hip surgery in previous admission - venous u/s of lower ext negative for DVT. CT of chest pending. Subjective Date patient seen: Mar 28, 2018 Time patient seen: 09:00 Constitutional: Reports: weakness HEENT: Reports: no symptoms Cardiovascular: Reports: no symptoms Respiratory: Reports: no symptoms Gastrointestinal/Abdominal: Reports: no symptoms Genitourinary: Reports: no symptoms Neurologic/Psychiatric: Reports: no symptoms Endocrine: Reports: no symptoms Hematologic/Lymphatic: Reports: no symptoms Allergies: Coded Allergies: MORPHINE (Verified Allergy, Unknown, 03/25/18) PENICILLINS (Verified Allergy, Unknown, 03/05/18) Subjective This morning he is slightly tachy in 102. He is in Step down now. He is awake and he Pulled his NG tube. His swallowing eval still pending. no sob or chest pain. no fever or chills. Objective Last 24 Hour Vital Signs Date Time Temp Pulse Resp B/P (MAP) Pulse Ox O2 Delivery O2 Flow Rate FiO2 03/28/18 08:00 98.1 102 18 152/80 (104) 96 03/28/18 08:00 Nasal Cannula 2.0 03/28/18 05:08 95 122/74 03/28/18 04:00 Nasal Cannula 2.0 03/28/18 04:00 94 03/28/18 04:00 97.7 97 28 127/73 (91) 97 03/28/18 00:00 91 03/28/18 00:00 Nasal Cannula 2.0 03/28/18 00:00 98.8 88 24 128/70 (89) 98 03/27/18 23:31 82 128/69 03/27/18 20:00 Nasal Cannula 2.0 03/27/18 20:00 88 03/27/18 20:00 98.9 87 22 121/60 (80) 98 03/27/18 18:11 104 130/90 03/27/18 16:00 99.0 104 20 130/90 (103) 96 03/27/18 16:00 Nasal Cannula 2.0 03/27/18 16:00 105 03/27/18 15:00 77 18 135/68 (90) 100 03/27/18 14:00 74 18 120/66 (84) 100 03/27/18 13:00 78 17 122/65 (84) 100 03/27/18 12:00 98.3 82 15 128/65 (86) 100 03/27/18 12:00 98 126/66 03/27/18 12:00 90 03/27/18 12:00 Nasal Cannula 2.0 03/27/18 11:00 77 15 126/66 (86) 100 Intake and Output 03/27/18 03/28/18 18:59 06:59 Intake Total 835 ml 1854 ml Output Total 340 ml 450 ml Balance 495 ml 1404 ml Intake Free Water 50 ml IV Total 75 ml 1144 ml Tube Feeding 660 ml 660 ml Other 100 ml Output Urine Total 340 ml 450 ml Laboratory Tests 03/27/18 10:45: D-Dimer 2.34H 03/27/18 21:39: Vancomycin Level Trough 17.5H 03/28/18 03:25: White Blood Count 8.1, Red Blood Count 2.70L, Hemoglobin 7.8L, Hematocrit 24.7L , Mean Corpuscular Volume 91, Mean Corpuscular Hemoglobin 28.9, Mean Corpuscular Hemoglobin Concent 31.6L, Red Cell Distribution Width 14.9H, Platelet Count 293, Mean Platelet Volume 5.8L, Neutrophils (%) (Auto) , Lymphocytes (%) (Auto) , Monocytes (%) (Auto) , Eosinophils (%) (Auto) , Basophils (%) (Auto) , Sodium Level 140, Potassium Level 3.9, Chloride Level 107 , Carbon Dioxide Level 23, Anion Gap 10, Blood Urea Nitrogen 25H, Creatinine 1.4H, Estimat Glomerular Filtration Rate , Glucose Level 124H, Calcium Level 8.5 Height (Feet): 5 Height (Inches): 9.00 Weight (Pounds): 231 General Appearance: no apparent distress, alert, other - speech incoherent EENT: normal ENT inspection Neck: non-tender, supple Cardiovascular: no gallop/murmur, tachycardia Respiratory/Chest: chest wall non-tender, lungs clear, normal breath sounds Abdomen: normal bowel sounds, non tender, soft Genitourinary/Rectal: heme positive stool Extremities: non-tender Edema: no edema noted Arm (L), no edema noted Arm (R), no edema noted Leg (L), no edema noted Leg (R), no edema noted Pedal (L), no edema noted Pedal (R), no edema noted Generalized Neurologic: alert, responsive Skin: warm/dry Lymphatic: normal anterior cervical (L), normal anterior cervical (R), normal posterior cervical (L), normal posterior cervical (R), normal submandibular (L) , normal submandibular (R), normal supraclavicular (L), normal supraclavicular ( R), normal axillary (L), normal axillary (R), normal inguinal (L), normal inguinal (R), normal other Shelby Arrington MD Mar 28, 2018 10:11
--- NOTE | 2018-03-28 10:37 | Cardiac Electrophysiology PN ---
Assessment/Plan Assessment/Plan 1. Atrial fibrillation with RVR. On Cardizem 60 q 6hr, Dig and Eliquis. Echo EF Nl on 03/06/18 Dig 0.7 2. History of hypertension. Stable on Cardizem 3. Sepsis with elevated white count, on IV antibiotic. 4. Congestive heart failure due to diastolic dysfunction. BNP of more than 6000. Echocardiogram Nl EF. On Lasix 40 iv daily 5. Anemia, hemoglobin 9.1. 6. Parkinson disease and dementia. 7. Dysphagia 8. Hx of Left hip surgery. Get Stat D. Dimer. LE duplex is negative for DVT. If D. dimer negative, Cancel the CT angio 9. Dysphagia, Pulled out NGT. Swallow eval pending DW RN Subjective Subjective Confused. In restraints. Pulled out NG tube. Objective Last 24 Hour Vital Signs Date Time Temp Pulse Resp B/P (MAP) Pulse Ox O2 Delivery O2 Flow Rate FiO2 03/28/18 08:00 98.1 102 18 152/80 (104) 96 03/28/18 08:00 Nasal Cannula 2.0 03/28/18 05:08 95 122/74 03/28/18 04:00 Nasal Cannula 2.0 03/28/18 04:00 94 03/28/18 04:00 97.7 97 28 127/73 (91) 97 03/28/18 00:00 91 03/28/18 00:00 Nasal Cannula 2.0 03/28/18 00:00 98.8 88 24 128/70 (89) 98 03/27/18 23:31 82 128/69 03/27/18 20:00 Nasal Cannula 2.0 03/27/18 20:00 88 03/27/18 20:00 98.9 87 22 121/60 (80) 98 03/27/18 18:11 104 130/90 03/27/18 16:00 99.0 104 20 130/90 (103) 96 03/27/18 16:00 Nasal Cannula 2.0 03/27/18 16:00 105 03/27/18 15:00 77 18 135/68 (90) 100 03/27/18 14:00 74 18 120/66 (84) 100 03/27/18 13:00 78 17 122/65 (84) 100 03/27/18 12:00 98.3 82 15 128/65 (86) 100 03/27/18 12:00 98 126/66 03/27/18 12:00 90 03/27/18 12:00 Nasal Cannula 2.0 03/27/18 11:00 77 15 126 (86) 100 Intake and Output 03/27/18 03/28/18 18:59 06:59 Intake Total 835 ml 1854 ml Output Total 340 ml 450 ml Balance 495 ml 1404 ml Intake Free Water 50 ml IV Total 75 ml 1144 ml Tube Feeding 660 ml 660 ml Other 100 ml Output Urine Total 340 ml 450 ml Laboratory Tests Test 03/27/18 10:45 03/27/18 21:39 03/28/18 03:25 D-Dimer 2.34 mg/L FEU (0.00-0.49) H Vancomycin Level Trough 17.5 ug/mL (5.0-12.0) H White Blood Count 8.1 K/UL (4.8-10.8) Red Blood Count 2.70 M/UL (4.70-6.10) L Hemoglobin 7.8 G/DL (14.2-18.0) L Hematocrit 24.7 % (42.0-52.0) L Mean Corpuscular Volume 91 FL (80-99) Mean Corpuscular Hemoglobin 28.9 PG (27.0-31.0) Mean Corpuscular Hemoglobin Concent 31.6 G/DL (32.0-36.0) L Red Cell Distribution Width 14.9 % (11.6-14.8) H Platelet Count 293 K/UL (150-450) Mean Platelet Volume 5.8 FL (6.5-10.1) L Neutrophils (%) (Auto) % (45.0-75.0) Lymphocytes (%) (Auto) % (20.0-45.0) Monocytes (%) (Auto) % (1.0-10.0) Eosinophils (%) (Auto) % (0.0-3.0) Basophils (%) (Auto) % (0.0-2.0) Sodium Level 140 MMOL/L (136-145) Potassium Level 3.9 MMOL/L (3.5-5.1) Chloride Level 107 MMOL/L (98-107) Carbon Dioxide Level 23 MMOL/L (21-32) Anion Gap 10 mmol/L (5-15) Blood Urea Nitrogen 25 mg/dL (7-18) H Creatinine 1.4 MG/DL (0.55-1.30) H Estimat Glomerular Filtration Rate mL/min (>60) Glucose Level 124 MG/DL (74-106) H Calcium Level 8.5 MG/DL (8.5-10.1) Objective HEENT: No JVD. LUNGS: Coarse rhonchi. CARDIOVASCULAR: Irregularly irregular S1 and S2 with no murmur ABDOMEN: Soft. EXTREMITIES: No pitting edema. Gary Bay MD Mar 28, 2018 10:37
[2018-03-28] MEDS: Pantoprazole Inj IVP SCH (10:44)
--- NOTE | 2018-03-28 10:59 | GI Progress Note ---
Assessment/Plan Problems: (1) Anemia ICD Codes: D64.9 - Anemia, unspecified SNOMED: 443129858 (2) Encephalopathy ICD Codes: G93.40 - Encephalopathy, unspecified SNOMED: 64390662 Status: unchanged Status Narrative Discussed with Dr. Barrera. Assessment/Plan Head CT reviewed >> negative for bleed or mass ST evaluation reviewed >> patient not ready for study OB stool positive NGT pulled out by patient fu cardiology monitor H&H, prn transfusions bowel regime ppi abx fu labs UPDATE @ 1700 >> patient scheduled for EGD tomorrow, NPO @CA. The patient was seen and examined at bedside and all new and available data was reviewed in the patients chart. I agree with the above findings, impression and plan. (Patient seen earlier today. Signature stamp does not reflect patient encounter time.). - Olegario Barrera MD Subjective Subjective limited Objective Last 24 Hour Vital Signs Date Time Temp Pulse Resp B/P (MAP) Pulse Ox O2 Delivery O2 Flow Rate FiO2 03/28/18 08:00 98.1 102 18 152/80 (104) 96 03/28/18 08:00 Nasal Cannula 2.0 03/28/18 05:08 95 122/74 03/28/18 04:00 Nasal Cannula 2.0 03/28/18 04:00 94 03/28/18 04:00 97.7 97 28 127/73 (91) 97 03/28/18 00:00 91 03/28/18 00:00 Nasal Cannula 2.0 03/28/18 00:00 98.8 88 24 128/70 (89) 98 03/27/18 23:31 82 128/69 03/27/18 20:00 Nasal Cannula 2.0 03/27/18 20:00 88 03/27/18 20:00 98.9 87 22 121/60 (80) 98 03/27/18 18:11 104 130/90 03/27/18 16:00 99.0 104 20 130/90 (103) 96 03/27/18 16:00 Nasal Cannula 2.0 03/27/18 16:00 105 03/27/18 15:00 77 18 135/68 (90) 100 03/27/18 14:00 74 18 120/66 (84) 100 03/27/18 13:00 78 17 122/65 (84) 100 03/27/18 12:00 98.3 82 15 128/65 (86) 100 03/27/18 12:00 98 126/66 03/27/18 12:00 90 03/27/18 12:00 Nasal Cannula 2.0 03/27/18 11:00 77 15 126/66 (86) 100 Intake and Output 03/27/18 03/28/18 18:59 06:59 Intake Total 835 ml 1854 ml Output Total 340 ml 450 ml Balance 495 ml 1404 ml Intake Free Water 50 ml IV Total 75 ml 1144 ml Tube Feeding 660 ml 660 ml Other 100 ml Output Urine Total 340 ml 450 ml Laboratory Tests Test 03/27/18 21:39 03/28/18 03:25 Vancomycin Level Trough 17.5 ug/mL (5.0-12.0) H White Blood Count 8.1 K/UL (4.8-10.8) Red Blood Count 2.70 M/UL (4.70-6.10) L Hemoglobin 7.8 G/DL (14.2-18.0) L Hematocrit 24.7 % (42.0-52.0) L Mean Corpuscular Volume 91 FL (80-99) Mean Corpuscular Hemoglobin 28.9 PG (27.0-31.0) Mean Corpuscular Hemoglobin Concent 31.6 G/DL (32.0-36.0) L Red Cell Distribution Width 14.9 % (11.6-14.8) H Platelet Count 293 K/UL (150-450) Mean Platelet Volume 5.8 FL (6.5-10.1) L Neutrophils (%) (Auto) % (45.0-75.0) Lymphocytes (%) (Auto) % (20.0-45.0) Monocytes (%) (Auto) % (1.0-10.0) Eosinophils (%) (Auto) % (0.0-3.0) Basophils (%) (Auto) % (0.0-2.0) Sodium Level 140 MMOL/L (136-145) Potassium Level 3.9 MMOL/L (3.5-5.1) Chloride Level 107 MMOL/L (98-107) Carbon Dioxide Level 23 MMOL/L (21-32) Anion Gap 10 mmol/L (5-15) Blood Urea Nitrogen 25 mg/dL (7-18) H Creatinine 1.4 MG/DL (0.55-1.30) H Estimat Glomerular Filtration Rate mL/min (>60) Glucose Level 124 MG/DL (74-106) H Calcium Level 8.5 MG/DL (8.5-10.1) Height (Feet): 5 Height (Inches): 9.00 Weight (Pounds): 231 General Appearance: no apparent distress Cardiovascular: normal rate Respiratory/Chest: normal breath sounds, no respiratory distress Abdominal Exam: normal bowel sounds, non tender, soft Extremities: non-tender Kati Gabriel NP Mar 28, 2018 10:59
[2018-03-28 11:59] VITALS: BP 154/101
[2018-03-28 16:00] VITALS: BP 159/93
[2018-03-28] MEDS ORDERED: Isovue-300 100ml vial INJ PRN (16:15)
--- NOTE | 2018-03-28 16:15 | Diagnostic Imaging Report ---
ndication: Chest pain Technique: IV administration nonionic contrast. Spiral acquisitions obtained from the lung bases to the lung apices. Multiplanar and 3-D reconstructions were generated. Total dose length product 1015.36 mGycm. CTDIvol(s) 27.29 mGy. Dose reduction achieved using automated exposure control Comparison: none Findings: Pulmonary arterial opacification is adequate. No intraluminal filling defects or other findings to suggest acute pulmonary embolus demonstrated. Normal caliber pulmonary arteries. Classic branching anatomy of the great neck vessels. Patent nonstenotic celiac axis noted. Some scarring is seen in the inferior right upper lobe periphery. Nonspecific reticular opacities are seen at the right lung base. There are bilateral small pleural effusions, left greater than right, resulting in compressive atelectatic changes at both lung bases. There is some bronchial wall thickening at both lung bases, more so on the left. Mild interstitial septal prominence is seen at the right lung base. No dense consolidation demonstrated. No masses or nodules. The heart size is normal. There is minimal anterior wall pericardial thickening versus fluid. There are prominent but not frankly enlarged mediastinal lymph nodes. The included portions of the thyroid demonstrates small subcentimeter nodules.. The esophagus demonstrates minimal wall thickening. The included upper abdominal anatomy demonstrates that left adrenal is diffusely bulky, demonstrates a 2 cm nodule in the lower pole which demonstrates low-attenuation, consistent with benign adenoma. The right adrenal is also somewhat bulky, less so than the left. There are renal cysts on the left. The liver demonstrates peripheral branching gas bubbles in the left lobe. There is a cyst in segment 3. Impression: No evidence of acute pulmonary embolus Branching lucencies in the periphery of the left hepatic lobe, could indicate portal venous gas. Further evaluation with abdomen pelvis CT is recommended to rule out bowel ischemia or other cause of intramural gas that would lead to portal venous gas. This critical value finding was phoned to Dr. Barrera as well as Dr. Arrington at the time of interpretation Right basilar reticular opacities, could be acute infiltrates or could be chronic fibrotic changes. Bilateral basilar bronchial wall thickening, probably on the basis of chronic bronchitis Mild interstitial septal prominence of the right lung base, could represent interstitial edema or chronic interstitial changes. Bilateral pleural effusions. Resultant basilar compressive atelectatic changes. There is minimal anterior wall pericardial thickening versus fluid Bilateral adrenal hypertrophy. Probable 2 cm left adrenal adenoma Incidental finding left renal cysts, small subcentimeter thyroid nodules, left lobe liver cyst. No further follow-up necessary The CT scanner at [facility] is accredited by the [employer] and the scans are performed using protocols designed to limit radiation exposure to as low as reasonably achievable to attain images of sufficient resolution adequate for diagnostic evaluation.
--- NOTE | 2018-03-28 17:05 | Diagnostic Imaging Report ---
Clinical Indication: Abdominal pain. Evidence of portal venous gas on recent chest CT scan Technique: No oral contrast utilized. IV administration nonionic contrast. Venous phase spiral acquisition obtained through the abdomen and pelvis. Multiplanar reconstructions were generated. Total dose length product 1015.8 mGycm. CTDIvol(s) 18.4 mGy. Dose reduction achieved using automated exposure control Comparison: none. Reference made to pelvic CT 03/05/2018, CTA chest performed earlier the same day Findings: The previously demonstrated portal venous gas is not evident on the current exam. The liver demonstrates a cyst and some focally prominent bile ducts in segment 2. It is otherwise unremarkable. No gas is seen elsewhere in the mesenteric or portal venous system. All 3 mesenteric arteries appear patent without evidence of significant stenosis proximally. The superior mesenteric vein and portal vein appear to be patent No evidence of large or small bowel wall thickening or bowel wall pneumatosis is demonstrated. The appendix is not definitely demonstrated, but no findings to suggest acute appendicitis are evident. No free or loculated intraperitoneal gas or fluid is evident. There is a rectal tube in place. The stomach and duodenum are unremarkable. There is colonic diverticulosis. No evidence of diverticulitis. The pancreas, spleen are unremarkable. The adrenals are diffusely bulky. There is a left adrenal 2 cm nodule which on the previous early arterial phase images of the chest CT demonstrated single-digit Hounsfield attenuation and is therefore consistent with benign adenoma. The right kidney demonstrates an enhancing solid mass coming off of the lower pole which measures 4 cm in diameter. There is a 1.6 cm isoattenuating to enhancing solid lesion coming off of the interpolar region of the right kidney. There is an upper pole 3.3 cm right renal lesion which measures just higher than fluid attenuation and is therefore indeterminate. There is an exophytic 1 cm left lower pole renal lesion which is not clearly cystic. Both kidneys demonstrate multiple cysts, as well as several subcentimeter low-attenuation lesions which are too small to characterize. There are also parapelvic cysts on the right. No renal or ureteral calculi, hydronephrosis, or hydroureter. The bladder is unremarkable. Parenchymal disease and pleural disease at the lung bases as discussed in previous chest CT report. The bones demonstrate degenerative spondylosis changes. There is also surgical hardware seen reducing recent left hip intertrochanteric fracture. Impression: Portal venous gas demonstrated on recent chest CT is not evident on the current exam. No worrisome wall thickening, pneumatosis, or other findings to suggest etiology the earlier finding demonstrated. Significance of that finding therefore is indeterminate. 4 cm solid right renal mass, suspicious for renal malignancy. There is also a second exophytic enhancing 1.6 cm lesion in the interpolar region which is also suspicious for malignancy 3.3 cm indeterminate right upper pole renal lesion, suspect complex proteinaceous cyst but this cannot be stated for certain. Further evaluation with ultrasound should be considered if clinically indicated Small indeterminate exophytic left renal lesion is also demonstrated, could represent complex cyst versus neoplasm Bilateral renal cysts and subcentimeter low-attenuation lesions which are too small to characterize, as well as right renal parapelvic cysts Diffusely bulky, hypertrophic adrenals. Left adrenal 2 cm nodule which is demonstrated on prior chest CT to be consistent with benign adenoma Colonic diverticulosis. No evidence of diverticulitis. Bilateral pulmonary parenchymal disease and pleural effusions, also previously reported Other findings as noted, including postsurgical and posttraumatic changes of the left hip, degenerative spondylosis Findings discussed by phone with Dr. Barrera at the time of interpretation The CT scanner at [facility] is accredited by the [employer] and the scans are performed using protocols designed to limit radiation exposure to as low as reasonably achievable to attain images of sufficient resolution adequate for diagnostic evaluation.
--- NOTE | 2018-03-28 17:11 | Infectious Diseases Prog Note ---
Assessment/Plan Problems: (1) Healthcare-associated pneumonia Assessment & Plan: confirmed on CT chest , with B/L interstitial infiltrates , continue aztreonam and vancomycin empirically , monitor CXR . aspiration precaution and swallow eval when fully awake (2) STUART (acute kidney injury) Assessment & Plan: improving continue gentle hydration , and renally dosed meds as per pharmacy (3) Trochanteric fracture of left femur Assessment & Plan: S/P ORIF, X ray no hardware failure (4) Rapid atrial fibrillation Assessment & Plan: on diltiazem , cardiology is following (5) Encephalopathy Assessment & Plan: due to the above, continue supportive care, monitor closely Subjective ROS Limited/Unobtainable: Yes Allergies: Coded Allergies: MORPHINE (Verified Allergy, Unknown, 03/25/18) PENICILLINS (Verified Allergy, Unknown, 03/05/18) Subjective he is awake and responsive, but confused and incoherent , still has NGT in. afebrile Objective Vital Signs Last 24 Hour Vital Signs Date Time Temp Pulse Resp B/P (MAP) Pulse Ox O2 Delivery O2 Flow Rate FiO2 03/28/18 16:00 Nasal Cannula 2.0 03/28/18 16:00 97.7 103 18 159/93 (115) 97 03/28/18 13:29 110 03/28/18 12:00 Nasal Cannula 2.0 03/28/18 12:00 110 154/101 03/28/18 11:59 98.4 92 18 154/101 (118) 96 03/28/18 08:00 98.1 102 18 152/80 (104) 96 03/28/18 08:00 Nasal Cannula 2.0 03/28/18 07:49 96 03/28/18 05:08 95 122/74 03/28/18 04:00 Nasal Cannula 2.0 03/28/18 04:00 94 03/28/18 04:00 97.7 97 28 127/73 (91) 97 03/28/18 00:00 91 03/28/18 00:00 Nasal Cannula 2.0 03/28/18 00:00 98.8 88 24 128/70 (89) 98 03/27/18 23:31 82 128/69 03/27/18 20:00 Nasal Cannula 2.0 03/27/18 20:00 88 03/27/18 20:00 98.9 87 22 121/60 (80) 98 03/27/18 18:11 104 130/90 Height (Feet): 5 Height (Inches): 9.00 Weight (Pounds): 231 General Appearance: WD/WN, no acute distress HEENT: normocephalic, atraumatic, anicteric, mucous membranes moist, PERRL Respiratory/Chest: chest wall non-tender, no respiratory distress, no accessory muscle use, decreased breath sounds Cardiovascular: normal peripheral pulses, normal rate, regular rhythm, no gallop/murmur, no JVD Abdomen: normal bowel sounds, soft, non tender, no organomegaly, non distended , no mass, no scars Genitourinary: normal external genitalia Extremities: no cyanosis, no clubbing Skin: no rash, no lesions, no ulcers Neurologic/Psychiatric: alert, responsive Lymphatic: no neck adenopathy, no groin adenopathy Musculoskeletal: normal muscle bulk, no effusion Laboratory Tests Test 03/27/18 21:39 03/28/18 03:25 Vancomycin Level Trough 17.5 ug/mL (5.0-12.0) H White Blood Count 8.1 K/UL (4.8-10.8) Red Blood Count 2.70 M/UL (4.70-6.10) L Hemoglobin 7.8 G/DL (14.2-18.0) L Hematocrit 24.7 % (42.0-52.0) L Mean Corpuscular Volume 91 FL (80-99) Mean Corpuscular Hemoglobin 28.9 PG (27.0-31.0) Mean Corpuscular Hemoglobin Concent 31.6 G/DL (32.0-36.0) L Red Cell Distribution Width 14.9 % (11.6-14.8) H Platelet Count 293 K/UL (150-450) Mean Platelet Volume 5.8 FL (6.5-10.1) L Neutrophils (%) (Auto) % (45.0-75.0) Lymphocytes (%) (Auto) % (20.0-45.0) Monocytes (%) (Auto) % (1.0-10.0) Eosinophils (%) (Auto) % (0.0-3.0) Basophils (%) (Auto) % (0.0-2.0) Sodium Level 140 MMOL/L (136-145) Potassium Level 3.9 MMOL/L (3.5-5.1) Chloride Level 107 MMOL/L (98-107) Carbon Dioxide Level 23 MMOL/L (21-32) Anion Gap 10 mmol/L (5-15) Blood Urea Nitrogen 25 mg/dL (7-18) H Creatinine 1.4 MG/DL (0.55-1.30) H Estimat Glomerular Filtration Rate mL/min (>60) Glucose Level 124 MG/DL (74-106) H Calcium Level 8.5 MG/DL (8.5-10.1) Current Medications Medications (Trade) Dose Ordered Sig/Colin Route PRN Reason Start Time Stop Time Status Last Admin Dose Admin Acetaminophen (Tylenol) 650 mg Q6H PRN ORAL Mild Pain/Temp > 100.5 03/27/18 17:00 04/24/18 16:59 Acetaminophen/ Hydrocodone Bitart ([place] 5/325) 1 tab Q6H PRN ORAL Severe Pain (Pain Scale 7-10) 03/27/18 17:00 04/01/18 16:59 Apixaban (Eliquis) 2.5 mg Q12HR ORAL 03/27/18 21:00 04/24/18 08:59 03/27/18 20:17 Atorvastatin Calcium (Lipitor) 20 mg BEDTIME ORAL 03/27/18 21:00 04/24/18 20:59 03/27/18 20:17 Aztreonam 2 gm/ Dextrose 110 ml @ 220 mls/hr Q8HR IVPB 03/27/18 22:00 04/01/18 13:59 03/28/18 14:56 Carbidopa/Levodopa (Sinemet 25/100) 1 tab THREE TIMES A DAY ORAL 03/27/18 18:00 04/24/18 08:59 03/27/18 18:10 Digoxin (Lanoxin) 0.25 mg DAILY ORAL 03/28/18 09:00 04/25/18 08:59 Diltiazem HCl (Cardizem) 60 mg EVERY 6 HOURS NG 03/27/18 18:00 04/25/18 17:59 03/28/18 05:08 Gabapentin (Neurontin) 100 mg DAILY ORAL 03/28/18 09:00 04/24/18 08:59 Iopamidol (Isovue-300 100ml) 100 ml NOW PRN INJ Radiology Procedure 03/28/18 16:15 03/30/18 23:59 Lactulose (Cephulac) 30 gm BID ORAL 03/27/18 18:00 04/24/18 08:59 Lorazepam (Ativan 2mg/ml 1ml) 1 mg Q8H PRN IV For Anxiety 03/27/18 17:00 04/01/18 16:59 Ondansetron HCl (Zofran) 4 mg Q4H PRN IVP Nausea & Vomiting 03/27/18 17:00 04/24/18 16:59 Pantoprazole (Protonix) 40 mg DAILY IVP 03/28/18 09:00 04/24/18 08:59 03/28/18 10:44 Sodium Chloride 1,000 ml @ 50 mls/hr Q20H IV 03/27/18 16:30 04/24/18 01:59 03/27/18 20:21 Tramadol HCl (Ultram) 50 mg Q8H PRN ORAL Moderate Pain (Pain Scale 4-6) 03/27/18 17:00 04/01/18 16:59 Vancomycin HCl (Vanco rx to dose) 1 ea DAILY PRN MISC . 03/28/18 09:00 04/26/18 09:14 Vancomycin HCl/ Dextrose 250 ml @ 167 mls/hr Q24H IVPB 03/27/18 23:00 03/30/18 22:59 03/27/18 23:30 Venlafaxine HCl (Effexor-XR) 37.5 mg DAILY ORAL 03/28/18 09:00 04/24/18 08:59 Srini Sam M.D. Mar 28, 2018 17:11
[2018-03-28 20:00] VITALS: BP 156/96
--- NOTE | 2018-03-28 20:05 | Cardiology Report ---
APPROVED REPORT EKG Measurement Heart [id number] Atrial fibrillation with rapid ventricular response Nonspecific T wave abnormality Abnormal ECG
[2018-03-28] MEDS: Atorvastatin 20mg tab ORAL SCH (21:00)
[2018-03-28] MEDS: Metoprolol 5mg/5ml Inj IVP SCH (21:33)
[2018-03-28] MEDS: Vancomycin 1.5gm/D5W 250ml 250 ML IVPB SCH (23:15)
[2018-03-29] VITALS (9 sets, daily range): BP systolic 122–158; BP diastolic 75–97
[2018-03-29] MEDS: Aztreonam Inj 2 GM in D5W 110 ML IVPB SCH ×3 (05:10→22:40)
[2018-03-29 05:35] LABS: BASOPHILS % (AUTO) 0.7 % (0.0-2.0); EOSINOPHILS % (AUTO) 4.1 % (0.0-3.0); HEMATOCRIT 25.5 % (42.0-52.0); HEMOGLOBIN 8.1 G/DL (14.2-18.0); LYMPHOCYTES % (AUTO) 13.7 % (20.0-45.0); MEAN CORPUSCULAR VOLUME 91 FL (80-99); MONOCYTES % (AUTO) 10.2 % (1.0-10.0); NEUTROPHILS % (AUTO) 71.3 % (45.0-75.0); PLATELET COUNT 290 K/UL (150-450); RED CELL DISTRIBUTION WIDTH 14.8 % (11.6-14.8); WHITE BLOOD COUNT 6.9 K/UL (4.8-10.8)
[2018-03-29 05:43] LABS: INR 1.1 (0.9-1.1)
[2018-03-29 05:48] LABS: ANION GAP 9 mmol/L (5-15); BLOOD UREA NITROGEN 19 mg/dL (7-18); CALCIUM 8.7 MG/DL (8.5-10.1); CARBON DIOXIDE 25 MMOL/L (21-32); CHLORIDE 105 MMOL/L (98-107); SODIUM 139 MMOL/L (136-145)
[2018-03-29] MEDS: Lactulose 20gm/30ml UDC ORAL SCH ×2 (09:00→18:00)
[2018-03-29] MEDS: Eliquis 2.5mg tablet ORAL SCH ×2 (09:00→21:00)
[2018-03-29] MEDS: Levodopa/Carbidopa 25/100 tab ORAL SCH ×3 (09:00→18:00)
[2018-03-29] MEDS: Venlafaxine XR 37.5mg cap ORAL SCH (09:00)
--- NOTE | 2018-03-29 09:17 | General Progress Note ---
Assessment/Plan Status: stable Assessment/Plan 1. A Fib with RVR - slightly tach at 104 today. on oral diltiazem and Dig. cardiology is following. He is in step down. 2. Pneumonia - cont IV Abx. ID is following. Swollowing eval pending. 3. Parkinson dx - cont home med. 4. HLD - cont home med. 5. Anemia - follow up CBC. cont protonix 40 mg IV daily. Stool hemocult positive. will f/u with GI. Upper endoscopy pending for today. 6. Stool hemocult positive at rehab - Stool hemocult positive. 2nd set is pending. Upper endoscopy pending. 7. Recent Hip surgery in previous admission - venous u/s of lower ext negative for DVT. CT of chest negative for PE. Subjective Date patient seen: Mar 29, 2018 Time patient seen: 09:00 Constitutional: Reports: weakness HEENT: Reports: no symptoms Cardiovascular: Reports: irregular heart rate Respiratory: Reports: no symptoms Gastrointestinal/Abdominal: Reports: no symptoms Genitourinary: Reports: no symptoms Neurologic/Psychiatric: Reports: no symptoms Endocrine: Reports: no symptoms Hematologic/Lymphatic: Reports: no symptoms Allergies: Coded Allergies: MORPHINE (Verified Allergy, Unknown, 03/25/18) PENICILLINS (Verified Allergy, Unknown, 03/05/18) Subjective This morning he is slightly tachy in 104 again. He is in Step down now. He is awake and able to understand him today. He is going for upper undoscopy and MRI of head today. no sob or chest pain. no fever or chills. Objective Last 24 Hour Vital Signs Date Time Temp Pulse Resp B/P (MAP) Pulse Ox O2 Delivery O2 Flow Rate FiO2 03/29/18 07:50 111 03/29/18 04:00 97.5 113 20 124/78 (93) 100 03/29/18 04:00 Nasal Cannula 2.0 03/29/18 04:00 103 03/29/18 00:00 Nasal Cannula 2.0 03/29/18 00:00 97.9 83 20 130/80 (97) 100 03/29/18 00:00 83 03/28/18 21:33 96 156/90 03/28/18 21:33 102 03/28/18 20:00 Nasal Cannula 2.0 03/28/18 20:00 93 03/28/18 20:00 97.9 100 24 156/96 (116) 100 03/28/18 17:49 97 03/28/18 16:00 Nasal Cannula 2.0 03/28/18 16:00 97.7 103 18 159/93 (115) 97 03/28/18 13:29 110 03/28/18 12:00 Nasal Cannula 2.0 03/28/18 12:00 110 154/101 03/28/18 11:59 98.4 92 18 154/101 (118) 96 Intake and Output 03/28/18 03/29/18 18:59 06:59 Intake Total 665 ml 1129 ml Output Total 1600 ml 1400 ml Balance -935 ml -271 ml IV Total 610 ml 1129 ml Tube Feeding 55 ml Output Urine Total 1600 ml 1400 ml # Bowel Movements 100 Laboratory Tests 03/28/18 17:30: Stool Occult Blood [Pending] 03/29/18 03:50: White Blood Count 6.9, Red Blood Count 2.80L, Hemoglobin 8.1L, Hematocrit 25.5L , Mean Corpuscular Volume 91, Mean Corpuscular Hemoglobin 29.0, Mean Corpuscular Hemoglobin Concent 32.0, Red Cell Distribution Width 14.8, Platelet Count 290, Mean Platelet Volume 6.0L, Neutrophils (%) (Auto) 71.3, Lymphocytes ( %) (Auto) 13.7L, Monocytes (%) (Auto) 10.2H, Eosinophils (%) (Auto) 4.1H, Basophils (%) (Auto) 0.7, Prothrombin Time 11.6H, Prothromb Time International Ratio 1.1, Activated Partial Thromboplast Time 33, Sodium Level 139, Potassium Level 4.0, Chloride Level 105, Carbon Dioxide Level 25, Anion Gap 9, Blood Urea Nitrogen 19H, Creatinine 1.0, Estimat Glomerular Filtration Rate , Glucose Level 92, Calcium Level 8.7 Height (Feet): 5 Height (Inches): 9.00 Weight (Pounds): 230 General Appearance: no apparent distress, alert Neck: non-tender, supple Cardiovascular: normal rate, regular rhythm Respiratory/Chest: lungs clear, normal breath sounds, no respiratory distress Abdomen: normal bowel sounds, non tender, soft Extremities: normal range of motion, non-tender Edema: no edema noted Arm (L), no edema noted Arm (R), no edema noted Leg (L), no edema noted Leg (R), no edema noted Pedal (L), no edema noted Pedal (R), no edema noted Generalized Neurologic: alert, responsive Skin: warm/dry Lymphatic: normal anterior cervical (L), normal anterior cervical (R), normal posterior cervical (L), normal posterior cervical (R), normal submandibular (L) , normal submandibular (R), normal supraclavicular (L), normal supraclavicular ( R), normal axillary (L), normal axillary (R), normal inguinal (L), normal inguinal (R), normal other Shelby Arrington MD Mar 29, 2018 09:17
[2018-03-29] MEDS ORDERED: Heparin 2000 units/Ns 1000ml INJ SCH (09:30)
[2018-03-29] MEDS ORDERED: Lidocaine 1% Plain 30 ml INJ SCH (09:30)
[2018-03-29] MEDS: Pantoprazole Inj IVP SCH (09:41)
[2018-03-29] MEDS: Metoprolol 5mg/5ml Inj IVP SCH ×2 (09:42→20:49)
--- NOTE | 2018-03-29 11:37 | Pre-Procedure Note/Attestation ---
Pre-Procedure Note/Attestation Complete Prior to Procedure Planned Procedure: not applicable Procedure Narrative: egd Indications for Procedure Pre-Operative Diagnosis: GIB Attestation I attest that I discussed the nature of the procedure; its benefits; risks and complications; and alternatives (and the risks and benefits of such alternatives ), prior to the procedure, with the patient (or the patient's legal brewery representative). I attest that, if there was a reasonable possibility of needing a blood transfusion, the patient (or the patient's legal brewery representative) was given the [facility] standardized written summary, pursuant to the Tanner Giacomo Blood Safety Act ([place] Health and Safety Code # 1645, as amended). I attest that I re-evaluated the patient just prior to the surgery and that there has been no change in the patient's H&P, except as documented below: Olegario Barrera MD Mar 29, 2018 11:37
[2018-03-29] MEDS ORDERED: Propofol 200mg/20ml IV ONE (11:45)
[2018-03-29] MEDS ORDERED: LR 1000ml ONE (11:45)
--- NOTE | 2018-03-29 11:59 | Diagnostic Imaging Report ---
Indication: Altered level of consciousness Technique: sagittal T1 fast spin echo, axial T1 FLAIR, axial T2 FLAIR, axial T2 FS PROPELLER, axial T2* GRE, axial diffusion weighted images. ADC and exponential ADC maps generated Comparison: none Findings: There is some image degradation on a few sequences due to slight motion artifact Tiny punctate focus of restricted diffusion is seen in the right posterior frontal deep white matter. This demonstrates increased T2 signal. No other foci of restricted diffusion are demonstrated. No acute hemorrhage or edema. No mass effect nor midline shift. There is age-related enlargement of the ventricles and extra axial CSF spaces. There is periventricular high T2 signal, consistent with chronic ischemic change. The vascular flow voids are preserved. There is evidence of prior bilateral cataract surgery.. Visualized sinuses are unremarkable. Impression: Positive for tiny acute right frontal deep white matter lacunar infarct Age-related volume loss Periventricular deep white matter high T2 signal, consistent with chronic small vessel ischemic changes. The patient's nurse notified by phone of the findings at the time of interpretation
--- NOTE | 2018-03-29 12:08 | Anethesia Preoperative Eval ---
Anesthesia Pre-op PMH/ROS General Date of Evaluation: Mar 29, 2018 Time of Evaluation: 12:08 ASA Score: ASA 4 Mallampati Score Class I : Soft palate, uvula, fauces, pillars visible Class II: Soft palate, uvula, fauces visible Class III: Soft palate, base of uvula visible Class IV: Only hard plate visible Mallampati Classification: Class II Social History: alcohol use Allergies: Coded Allergies: MORPHINE (Verified Allergy, Unknown, 03/25/18) PENICILLINS (Verified Allergy, Unknown, 03/05/18) Patient NPO?: Yes Anesthesia Pre-op Phys. Exam Physician Exam Last Vital Signs Date Time Temp Pulse Resp B/P (MAP) Pulse Ox O2 Delivery O2 Flow Rate FiO2 03/29/18 09:42 105 141/91 03/29/18 08:00 97.2 18 98 03/29/18 08:00 Nasal Cannula 2.0 Airway Exam Mallampati Score: Class II Anesthesia Pre-op A/P Labs Hematology Test 03/29/18 03:50 White Blood Count 6.9 K/UL (4.8-10.8) Red Blood Count 2.80 M/UL (4.70-6.10) L Hemoglobin 8.1 G/DL (14.2-18.0) L Hematocrit 25.5 % (42.0-52.0) L Mean Corpuscular Volume 91 FL (80-99) Mean Corpuscular Hemoglobin 29.0 PG (27.0-31.0) Mean Corpuscular Hemoglobin Concent 32.0 G/DL (32.0-36.0) Red Cell Distribution Width 14.8 % (11.6-14.8) Platelet Count 290 K/UL (150-450) Mean Platelet Volume 6.0 FL (6.5-10.1) L Neutrophils (%) (Auto) 71.3 % (45.0-75.0) Lymphocytes (%) (Auto) 13.7 % (20.0-45.0) L Monocytes (%) (Auto) 10.2 % (1.0-10.0) H Eosinophils (%) (Auto) 4.1 % (0.0-3.0) H Basophils (%) (Auto) 0.7 % (0.0-2.0) Coagulation Test 03/29/18 03:50 Prothrombin Time 11.6 SEC (9.30-11.50) H Prothromb Time International Ratio 1.1 (0.9-1.1) Activated Partial Thromboplast Time 33 SEC (23-33) Chemistry Test 03/29/18 03:50 Sodium Level 139 MMOL/L (136-145) Potassium Level 4.0 MMOL/L (3.5-5.1) Chloride Level 105 MMOL/L (98-107) Carbon Dioxide Level 25 MMOL/L (21-32) Anion Gap 9 mmol/L (5-15) Blood Urea Nitrogen 19 mg/dL (7-18) H Creatinine 1.0 MG/DL (0.55-1.30) Estimat Glomerular Filtration Rate mL/min (>60) Glucose Level 92 MG/DL (74-106) Calcium Level 8.7 MG/DL (8.5-10.1) Alfonso Seo MD Mar 29, 2018 12:08
--- NOTE | 2018-03-29 12:09 | Immediate Post-Op Evaluation ---
Immediate Post-Op Evalulation Immediate Post-Op Evalulation Procedure: egd Date of Evaluation: Mar 29, 2018 Time of Evaluation: 12:09 Nausea: No Vomiting: No Alfonso Seo MD Mar 29, 2018 12:09
--- NOTE | 2018-03-29 14:25 | Infectious Diseases Prog Note ---
Assessment/Plan Problems: (1) Healthcare-associated pneumonia Assessment & Plan: confirmed on CT chest , with B/L interstitial infiltrates , continue aztreonam and vancomycin empirically for 7 -10 days . aspiration precaution and swallow eval when fully awake (2) STUART (acute kidney injury) Assessment & Plan: improving continue gentle hydration , and renally dosed meds as per pharmacy (3) Trochanteric fracture of left femur Assessment & Plan: S/P ORIF, X ray no hardware failure (4) Rapid atrial fibrillation Assessment & Plan: on diltiazem , cardiology is following (5) Encephalopathy Assessment & Plan: due to the above, continue supportive care, monitor closely (6) Acute CVA (cerebrovascular accident) Assessment & Plan: already on anticoagulation for A.fib, continue neuro check (7) Renal mass, right Assessment & Plan: recommend urology consult , for possible radical nephrectomy Subjective ROS Limited/Unobtainable: Yes Allergies: Coded Allergies: MORPHINE (Verified Allergy, Unknown, 03/25/18) PENICILLINS (Verified Allergy, Unknown, 03/05/18) Subjective he is awake and responsive, but confused and incoherent , still has NGT in. afebrile Objective Vital Signs Last 24 Hour Vital Signs Date Time Temp Pulse Resp B/P (MAP) Pulse Ox O2 Delivery O2 Flow Rate FiO2 03/29/18 12:30 108 22 158/91 99 Nasal Cannula 3 03/29/18 12:20 108 22 152/96 99 Nasal Cannula 3 03/29/18 12:15 112 22 148/90 99 Nasal Cannula 3 03/29/18 12:10 97.4 109 22 150/97 99 Nasal Cannula 3 03/29/18 09:42 105 141/91 03/29/18 08:00 97.2 105 18 141/97 (112) 98 03/29/18 08:00 Nasal Cannula 2.0 03/29/18 07:50 111 03/29/18 04:00 97.5 113 20 124/78 (93) 100 03/29/18 04:00 Nasal Cannula 2.0 03/29/18 04:00 103 03/29/18 00:00 Nasal Cannula 2.0 03/29/18 00:00 97.9 83 20 130/80 (97) 100 03/29/18 00:00 83 03/28/18 21:33 96 156/90 03/28/18 21:33 102 03/28/18 20:00 Nasal Cannula 2.0 03/28/18 20:00 93 03/28/18 20:00 97.9 100 24 156/96 (116) 100 03/28/18 17:49 97 03/28/18 16:00 Nasal Cannula 2.0 03/28/18 16:00 97.7 103 18 159/93 (115) 97 Height (Feet): 5 Height (Inches): 9.00 Weight (Pounds): 230 General Appearance: WD/WN, no acute distress, other - confused Respiratory/Chest: chest wall non-tender, lungs clear, no respiratory distress , no accessory muscle use, decreased breath sounds Cardiovascular: normal peripheral pulses, normal rate, regular rhythm, no gallop/murmur, no JVD Abdomen: normal bowel sounds, soft, non tender, no organomegaly, non distended , no mass, no scars Extremities: no cyanosis, no clubbing Skin: no rash, no lesions, no ulcers Neurologic/Psychiatric: alert, responsive Microbiology Date/Time Source Procedure Growth Status 03/28/18 17:30 Sputum Expectorated Gram Stain - Final Resulted 03/28/18 17:30 Sputum Expectorated Sputum Culture Pending Resulted Laboratory Tests Test 03/28/18 17:30 03/29/18 03:50 Stool Occult Blood Positive (NEGATIVE) White Blood Count 6.9 K/UL (4.8-10.8) Red Blood Count 2.80 M/UL (4.70-6.10) L Hemoglobin 8.1 G/DL (14.2-18.0) L Hematocrit 25.5 % (42.0-52.0) L Mean Corpuscular Volume 91 FL (80-99) Mean Corpuscular Hemoglobin 29.0 PG (27.0-31.0) Mean Corpuscular Hemoglobin Concent 32.0 G/DL (32.0-36.0) Red Cell Distribution Width 14.8 % (11.6-14.8) Platelet Count 290 K/UL (150-450) Mean Platelet Volume 6.0 FL (6.5-10.1) L Neutrophils (%) (Auto) 71.3 % (45.0-75.0) Lymphocytes (%) (Auto) 13.7 % (20.0-45.0) L Monocytes (%) (Auto) 10.2 % (1.0-10.0) H Eosinophils (%) (Auto) 4.1 % (0.0-3.0) H Basophils (%) (Auto) 0.7 % (0.0-2.0) Prothrombin Time 11.6 SEC (9.30-11.50) H Prothromb Time International Ratio 1.1 (0.9-1.1) Activated Partial Thromboplast Time 33 SEC (23-33) Sodium Level 139 MMOL/L (136-145) Potassium Level 4.0 MMOL/L (3.5-5.1) Chloride Level 105 MMOL/L (98-107) Carbon Dioxide Level 25 MMOL/L (21-32) Anion Gap 9 mmol/L (5-15) Blood Urea Nitrogen 19 mg/dL (7-18) H Creatinine 1.0 MG/DL (0.55-1.30) Estimat Glomerular Filtration Rate mL/min (>60) Glucose Level 92 MG/DL (74-106) Calcium Level 8.7 MG/DL (8.5-10.1) Current Medications Medications (Trade) Dose Ordered Sig/Colin Route PRN Reason Start Time Stop Time Status Last Admin Dose Admin Acetaminophen (Tylenol) 650 mg Q6H PRN ORAL Mild Pain/Temp > 100.5 03/27/18 17:00 04/24/18 16:59 Acetaminophen/ Hydrocodone Bitart ([place] 5/325) 1 tab Q6H PRN ORAL Severe Pain (Pain Scale 7-10) 03/27/18 17:00 04/01/18 16:59 Apixaban (Eliquis) 2.5 mg Q12HR ORAL 03/27/18 21:00 04/24/18 08:59 03/27/18 20:17 Atorvastatin Calcium (Lipitor) 20 mg BEDTIME ORAL 03/27/18 21:00 04/24/18 20:59 03/27/18 20:17 Aztreonam 2 gm/ Dextrose 110 ml @ 220 mls/hr Q8HR IVPB 03/27/18 22:00 04/01/18 13:59 03/29/18 05:10 Carbidopa/Levodopa (Sinemet 25/100) 1 tab THREE TIMES A DAY ORAL 03/27/18 18:00 04/24/18 08:59 03/27/18 18:10 Chlorhexidine Gluconate (Bonnie-Hex 2%) 1 applic DAILY@2000 TOPIC 03/29/18 20:00 04/28/18 19:59 Digoxin (Lanoxin) 0.25 mg DAILY ORAL 03/28/18 09:00 04/25/18 08:59 Gabapentin (Neurontin) 100 mg DAILY ORAL 03/28/18 09:00 04/24/18 08:59 Heparin Sodium/ Sodium Chloride (Heparin 2000 units/Ns 1000ml premix) 2,000 unit ONCE INJ 03/29/18 09:30 03/29/18 18:00 Iopamidol (Isovue-300 100ml) 100 ml NOW PRN INJ Radiology Procedure 03/28/18 16:15 03/30/18 23:59 Lactulose (Cephulac) 30 gm BID ORAL 03/27/18 18:00 04/24/18 08:59 Lidocaine HCl (Xylocaine 1% 30ml) 30 ml ONCE INJ 03/29/18 09:30 03/29/18 18:00 Lorazepam (Ativan 2mg/ml 1ml) 1 mg Q8H PRN IV For Anxiety 03/27/18 17:00 04/01/18 16:59 03/29/18 09:41 Metoprolol Tartrate (Lopressor) 5 mg EVERY 12 HOURS IVP 03/28/18 21:00 04/27/18 20:59 03/29/18 09:42 Ondansetron HCl (Zofran) 4 mg Q4H PRN IVP Nausea & Vomiting 03/27/18 17:00 04/24/18 16:59 Pantoprazole (Protonix) 40 mg DAILY IVP 03/28/18 09:00 04/24/18 08:59 03/29/18 09:41 Sodium Chloride 1,000 ml @ 50 mls/hr Q20H IV 03/27/18 16:30 04/24/18 01:59 03/29/18 02:05 Tramadol HCl (Ultram) 50 mg Q8H PRN ORAL Moderate Pain (Pain Scale 4-6) 03/27/18 17:00 04/01/18 16:59 Vancomycin HCl (Vanco rx to dose) 1 ea DAILY PRN MISC . 03/28/18 09:00 04/26/18 09:14 Vancomycin HCl/ Dextrose 250 ml @ 167 mls/hr Q24H IVPB 03/27/18 23:00 04/03/18 22:59 03/28/18 23:15 Venlafaxine HCl (Effexor-XR) 37.5 mg DAILY ORAL 03/28/18 09:00 04/24/18 08:59 Srini Sam M.D. Mar 29, 2018 14:25
--- NOTE | 2018-03-29 14:54 | Cardiac Electrophysiology PN ---
Assessment/Plan Assessment/Plan 1. Atrial fibrillation with RVR. On Metoprolol 5 iv bid, Dig and Eliquis. Echo EF Nl on 03/06/18 2. History of hypertension. Stable on iv Metoprolol and Lasix 3. Sepsis with elevated white count, on IV antibiotic. 4. Congestive heart failure due to diastolic dysfunction. BNP of more than 6000. Echocardiogram Nl EF.Start Lasix 40 iv daily 5. Anemia, hemoglobin 9.1. 6. Parkinson disease and dementia. 7. Dysphagia 8. Hx of Left hip surgery and high D. Dimer. LE duplex is negative for DVT. CT angio no PE 9. Dysphagia, Pulled out NGT. AUBREY RN Subjective Subjective Confused. In restraints. Is getting PICC line Objective Last 24 Hour Vital Signs Date Time Temp Pulse Resp B/P (MAP) Pulse Ox O2 Delivery O2 Flow Rate FiO2 03/29/18 12:30 108 22 158/91 99 Nasal Cannula 3 03/29/18 12:20 108 22 152/96 99 Nasal Cannula 3 03/29/18 12:15 112 22 148/90 99 Nasal Cannula 3 03/29/18 12:10 97.4 109 22 150/97 99 Nasal Cannula 3 03/29/18 09:42 105 141/91 03/29/18 08:00 97.2 105 18 141/97 (112) 98 03/29/18 08:00 Nasal Cannula 2.0 03/29/18 07:50 111 03/29/18 04:00 97.5 113 20 124/78 (93) 100 03/29/18 04:00 Nasal Cannula 2.0 03/29/18 04:00 103 03/29/18 00:00 Nasal Cannula 2.0 03/29/18 00:00 97.9 83 20 130/80 (97) 100 03/29/18 00:00 83 03/28/18 21:33 96 156/90 03/28/18 21:33 102 03/28/18 20:00 Nasal Cannula 2.0 03/28/18 20:00 93 03/28/18 20:00 97.9 100 24 156/96 (116) 100 03/28/18 17:49 97 03/28/18 16:00 Nasal Cannula 2.0 03/28/18 16:00 97.7 103 18 159/93 (115) 97 Intake and Output 03/28/18 03/29/18 18:59 06:59 Intake Total 665 ml 1129 ml Output Total 1600 ml 1400 ml Balance -935 ml -271 ml IV Total 610 ml 1129 ml Tube Feeding 55 ml Output Urine Total 1600 ml 1400 ml # Bowel Movements 100 Laboratory Tests Test 03/28/18 17:30 03/29/18 03:50 Stool Occult Blood Positive (NEGATIVE) White Blood Count 6.9 K/UL (4.8-10.8) Red Blood Count 2.80 M/UL (4.70-6.10) L Hemoglobin 8.1 G/DL (14.2-18.0) L Hematocrit 25.5 % (42.0-52.0) L Mean Corpuscular Volume 91 FL (80-99) Mean Corpuscular Hemoglobin 29.0 PG (27.0-31.0) Mean Corpuscular Hemoglobin Concent 32.0 G/DL (32.0-36.0) Red Cell Distribution Width 14.8 % (11.6-14.8) Platelet Count 290 K/UL (150-450) Mean Platelet Volume 6.0 FL (6.5-10.1) L Neutrophils (%) (Auto) 71.3 % (45.0-75.0) Lymphocytes (%) (Auto) 13.7 % (20.0-45.0) L Monocytes (%) (Auto) 10.2 % (1.0-10.0) H Eosinophils (%) (Auto) 4.1 % (0.0-3.0) H Basophils (%) (Auto) 0.7 % (0.0-2.0) Prothrombin Time 11.6 SEC (9.30-11.50) H Prothromb Time International Ratio 1.1 (0.9-1.1) Activated Partial Thromboplast Time 33 SEC (23-33) Sodium Level 139 MMOL/L (136-145) Potassium Level 4.0 MMOL/L (3.5-5.1) Chloride Level 105 MMOL/L (98-107) Carbon Dioxide Level 25 MMOL/L (21-32) Anion Gap 9 mmol/L (5-15) Blood Urea Nitrogen 19 mg/dL (7-18) H Creatinine 1.0 MG/DL (0.55-1.30) Estimat Glomerular Filtration Rate mL/min (>60) Glucose Level 92 MG/DL (74-106) Calcium Level 8.7 MG/DL (8.5-10.1) Microbiology Date/Time Source Procedure Growth Status 03/28/18 17:30 Sputum Expectorated Gram Stain - Final Resulted 03/28/18 17:30 Sputum Expectorated Sputum Culture Pending Resulted Objective HEENT: No JVD. LUNGS: Coarse rhonchi. CARDIOVASCULAR: Irregularly irregular S1 and S2 with no murmur ABDOMEN: Soft. EXTREMITIES: No pitting edema. Gary Bay MD Mar 29, 2018 14:53
--- NOTE | 2018-03-29 15:43 | Diagnostic Imaging Report ---
Indications: Needs long-term IV access Technique: Procedure performed at bedside. Procedural timeout performed. Ultrasound confirms patent compressible left basilic vein. Total sterile technique, including sterile probe cover and sterile gel, sterile gloves, hand hygiene, hat, mask,, sterile gown, large sterile drape, and preparation with 2% chlorhexidine utilized. Local anesthesia with 1% lidocaine. Under real-time ultrasound guidance, puncture left basilic vein using 21-gauge needle, passage 0.018 guidewire, exchange for 5 Q[place]ari peel-away sheath. 5 [place] Arrow dual-lumen power PICC cut to 46 cm. It was inserted through the peel-away sheath. Peel-away sheath and guidewire removed. Catheter fixed to the skin. Both catheter ports aspirated and flushed. Patient tolerated procedure well, without immediate complication. Followup chest x-ray obtained, documents catheter tip position at the mid superior vena cava Impression: Successful bedside placement of left arm PICC under sonographic guidance, as described above.
--- NOTE | 2018-03-29 18:30 | Procedure Note ---
DATE OF PROCEDURE: 03/24/2018 SURGEON: Olegario Barrera M.D. PROCEDURE: Upper endoscopy with biopsy. ANESTHESIA: Per Dr. Seo. INSTRUMENT: Olympus adult flexible upper endoscope. INDICATION: Anemia stool OB positive and possible gastrointestinal bleeding. REASON FOR PROCEDURE: The procedure, risks, benefits, and possible consequences, including hemorrhage, aspiration, perforation and infection, and alternative treatments, were explained to the patient/legal guardian by Dr. Olegario Barrera and the patient/legal guardian understood and accepted these risks. PROCEDURE IN DETAIL: After informed consent was obtained and the patient was adequately sedated, Olympus upper endoscope was advanced from the mouth into the second portion of the duodenum and retroflexion was performed in the stomach. there is evidence of moderate esophagitis The patient had evidence of diffuse gastritis. Random biopsies from antrum and body was obtained to rule out H. pylori infection. The rest of the upper endoscopic examination was grossly within normal limits. The patient also had evidence of mild duodenitis without any duodenal ulcerations. At this time, the upper endoscope was retrieved and the procedure was terminated. SUMMARY OF FINDINGS: 1. Gastritis, status post biopsy. 2. Duodenitis. 3.Esophagitis RECOMMENDATIONS: Follow up biopsy results and treat accordingly. ppi daily possible colonoscopy on Sunday I want to thank Dr. Shelby Arrington for this kind referral. Olegario Barrera M.D. DR: WADE JOB#: [id number] CC: Shelby Arrington M.D.; Fax#: [phone] [facility]
[2018-03-29] MEDS: Dyna-Hex 2% Top Sol 2oz TOPIC SCH (20:48)
[2018-03-29] MEDS: Atorvastatin 20mg tab ORAL SCH (21:00)
[2018-03-29] MEDS: Vancomycin 1.5gm/D5W 250ml 250 ML IVPB SCH (23:44)
[2018-03-30] VITALS: BP 129/76
[2018-03-30 04:00] VITALS: BP 137/69
[2018-03-30] MEDS: Aztreonam Inj 2 GM in D5W 110 ML IVPB SCH ×3 (05:07→21:49)
[2018-03-30 05:42] LABS: BASOPHILS % (AUTO) 0.7 % (0.0-2.0); EOSINOPHILS % (AUTO) 3.9 % (0.0-3.0); HEMATOCRIT 29.7 % (42.0-52.0); HEMOGLOBIN 9.4 G/DL (14.2-18.0); LYMPHOCYTES % (AUTO) 12.7 % (20.0-45.0); MEAN CORPUSCULAR VOLUME 90 FL (80-99); MONOCYTES % (AUTO) 10.9 % (1.0-10.0); NEUTROPHILS % (AUTO) 71.7 % (45.0-75.0); PLATELET COUNT 280 K/UL (150-450); RED BLOOD COUNT 3.29 M/UL (4.70-6.10); RED CELL DISTRIBUTION WIDTH 14.3 % (11.6-14.8); WHITE BLOOD COUNT 8.4 K/UL (4.8-10.8)
[2018-03-30 06:10] LABS: ANION GAP 7 mmol/L (5-15); BLOOD UREA NITROGEN 18 mg/dL (7-18); CALCIUM 8.9 MG/DL (8.5-10.1); CARBON DIOXIDE 29 MMOL/L (21-32); CHLORIDE 103 MMOL/L (98-107); CREATININE 1.2 MG/DL (0.55-1.30); POTASSIUM 4.1 MMOL/L (3.5-5.1); SODIUM 139 MMOL/L (136-145)
[2018-03-30 08:00] VITALS: BP 155/91
[2018-03-30] MEDS: Eliquis 2.5mg tablet ORAL SCH (09:00)
[2018-03-30] MEDS: Pantoprazole Inj IVP SCH (10:12)
[2018-03-30] MEDS: Metoprolol 5mg/5ml Inj IVP SCH (10:12)
--- NOTE | 2018-03-30 10:21 | Diagnostic Imaging Report ---
EXAM: XR Abdomen, 1 View CLINICAL HISTORY: TUBE PLCMT TECHNIQUE: Frontal supine view of the abdomen/pelvis. COMPARISON: No relevant prior studies available. FINDINGS: Gastrointestinal tract: Paucity of bowel gas. Bones/joints: Left hip fixation. Tubes, lines and devices: Enteric tube in the proximal stomach. IMPRESSION: Enteric tube in the proximal stomach.
--- NOTE | 2018-03-30 10:33 | General Progress Note ---
Assessment/Plan Problem List: (1) Rapid atrial fibrillation ICD Codes: I48.91 - Unspecified atrial fibrillation SNOMED: 225671496 (2) Leukocytosis ICD Codes: D72.829 - Elevated white blood cell count, unspecified SNOMED: 929268850, 025018972 (3) Encephalopathy ICD Codes: G93.40 - Encephalopathy, unspecified SNOMED: 70341871 (4) Anemia ICD Codes: D64.9 - Anemia, unspecified SNOMED: 114118089 (5) CKD (chronic kidney disease) ICD Codes: N18.9 - Chronic kidney disease, unspecified SNOMED: 351978018 Assessment/Plan fu H&H ppi fu stool ob>>>positive x2 NGTF ordered neg EGD>> possible colonoscopy for Sunday fu cardiology Subjective ROS Limited/Unobtainable: No Allergies: Coded Allergies: MORPHINE (Verified Allergy, Unknown, 03/25/18) PENICILLINS (Verified Allergy, Unknown, 03/05/18) Objective Last 24 Hour Vital Signs Date Time Temp Pulse Resp B/P (MAP) Pulse Ox O2 Delivery O2 Flow Rate FiO2 03/30/18 10:12 87 155/91 03/30/18 08:00 Nasal Cannula 2.0 03/30/18 08:00 97.9 87 20 155/91 (112) 100 03/30/18 07:57 109 03/30/18 04:00 98.3 72 20 137/69 (91) 99 03/30/18 04:00 Nasal Cannula 2.0 03/30/18 04:00 96 03/30/18 00:00 98.1 91 18 129/76 (93) 100 03/30/18 00:00 111 03/30/18 00:00 Nasal Cannula 2.0 03/29/18 20:54 90 03/29/18 20:51 117 03/29/18 20:49 92 152/73 03/29/18 20:00 Nasal Cannula 2.0 03/29/18 20:00 97.9 100 20 122/75 (91) 100 03/29/18 20:00 114 03/29/18 16:00 Nasal Cannula 2.0 03/29/18 16:00 97.9 122 20 129/91 (104) 98 03/29/18 15:25 114 03/29/18 12:30 108 22 158/91 99 Nasal Cannula 3 03/29/18 12:20 108 22 152/96 99 Nasal Cannula 3 03/29/18 12:15 112 22 148/90 99 Nasal Cannula 3 03/29/18 12:10 97.4 109 22 150/97 99 Nasal Cannula 3 Intake and Output 03/29/18 03/30/18 19:00 07:00 Intake Total 350 ml 1364 ml Output Total 1750 ml 1450 ml Balance -1400 ml -86 ml IV Total 350 ml 1364 ml Output Urine Total 1750 ml 1450 ml # Bowel Movements 25 35 Laboratory Tests 03/30/18 04:25: White Blood Count 8.4, Red Blood Count 3.29L, Hemoglobin 9.4L, Hematocrit 29.7L , Mean Corpuscular Volume 90, Mean Corpuscular Hemoglobin 28.7, Mean Corpuscular Hemoglobin Concent 31.8L, Red Cell Distribution Width 14.3, Platelet Count 280, Mean Platelet Volume 5.7L, Neutrophils (%) (Auto) 71.7, Lymphocytes (%) (Auto) 12.7L, Monocytes (%) (Auto) 10.9H, Eosinophils (%) (Auto ) 3.9H, Basophils (%) (Auto) 0.7, Sodium Level 139, Potassium Level 4.1, Chloride Level 103, Carbon Dioxide Level 29, Anion Gap 7, Blood Urea Nitrogen 18 , Creatinine 1.2, Estimat Glomerular Filtration Rate , Glucose Level 83, Calcium Level 8.9 Height (Feet): 5 Height (Inches): 9.00 Weight (Pounds): 229 General Appearance: confused EENT: normal ENT inspection Neck: supple Cardiovascular: normal rate Respiratory/Chest: decreased breath sounds Abdomen: normal bowel sounds, non tender, soft Extremities: non-tender Olegario Barrera MD Mar 30, 2018 10:33
[2018-03-30] MEDS: Levodopa/Carbidopa 25/100 tab ORAL SCH ×3 (10:40→17:16)
[2018-03-30] MEDS: Venlafaxine XR 37.5mg cap ORAL SCH (10:41)
[2018-03-30] MEDS: Lactulose 20gm/30ml UDC ORAL SCH (10:41)
[2018-03-30 12:00] VITALS: BP 140/95
--- NOTE | 2018-03-30 12:54 | Infectious Diseases Prog Note ---
Assessment/Plan Problems: (1) Healthcare-associated pneumonia Assessment & Plan: confirmed on CT chest , with B/L interstitial infiltrates , continue aztreonam and vancomycin empirically for 10 days . aspiration precaution and swallow eval when fully awake (2) STUART (acute kidney injury) Assessment & Plan: improving continue gentle hydration , and renally dosed meds as per pharmacy (3) Trochanteric fracture of left femur Assessment & Plan: S/P ORIF, X ray no hardware failure (4) Rapid atrial fibrillation Assessment & Plan: on diltiazem , cardiology is following (5) Encephalopathy Assessment & Plan: due to the above, continue supportive care, monitor closely (6) Acute CVA (cerebrovascular accident) Assessment & Plan: already on anticoagulation for A.fib, continue neuro check (7) Renal mass, right Assessment & Plan: recommend urology consult , for possible radical nephrectomy Subjective Constitutional: Reports: no symptoms HEENT: Reports: other - left facial droop Respiratory: Reports: no symptoms Breasts: Reports: no symptoms Cardiovascular: Reports: no symptoms Gastrointestinal/Abdominal: Reports: no symptoms Genitourinary: Reports: no symptoms Neurologic: Reports: weakness, confusion Psychiatric: Reports: no symptoms Skin: Reports: no symptoms Endocrine: Reports: no symptoms Hematologic: Reports: no symptoms Musculoskeletal: Reports: no symptoms Allergies: Coded Allergies: MORPHINE (Verified Allergy, Unknown, 03/25/18) PENICILLINS (Verified Allergy, Unknown, 03/05/18) Subjective he is awake and responsive, but confused and incoherent , still has NGT in. afebrile Objective Vital Signs Last 24 Hour Vital Signs Date Time Temp Pulse Resp B/P (MAP) Pulse Ox O2 Delivery O2 Flow Rate FiO2 03/30/18 12:00 98.1 83 20 140/95 (110) 100 03/30/18 12:00 Nasal Cannula 2.0 03/30/18 11:54 101 03/30/18 10:41 87 03/30/18 10:12 87 155/91 03/30/18 08:00 Nasal Cannula 2.0 03/30/18 08:00 97.9 87 20 155/91 (112) 100 03/30/18 07:57 109 03/30/18 04:00 98.3 72 20 137/69 (91) 99 03/30/18 04:00 Nasal Cannula 2.0 03/30/18 04:00 96 03/30/18 00:00 98.1 91 18 129/76 (93) 100 03/30/18 00:00 111 03/30/18 00:00 Nasal Cannula 2.0 03/29/18 20:54 90 03/29/18 20:51 117 03/29/18 20:49 92 152/73 03/29/18 20:00 Nasal Cannula 2.0 03/29/18 20:00 97.9 100 20 122/75 (91) 100 03/29/18 20:00 114 03/29/18 16:00 Nasal Cannula 2.0 03/29/18 16:00 97.9 122 20 129/91 (104) 98 03/29/18 15:25 114 Height (Feet): 5 Height (Inches): 9.00 Weight (Pounds): 229 General Appearance: WD/WN, no acute distress HEENT: atraumatic, anicteric, mucous membranes moist, PERRL, EOMI, pharynx normal, supple, no JVD, other - left facial droop Respiratory/Chest: chest wall non-tender, no respiratory distress, no accessory muscle use, decreased breath sounds Cardiovascular: normal peripheral pulses, normal rate, regular rhythm, no gallop/murmur, no JVD Abdomen: normal bowel sounds, soft, non tender, no organomegaly, non distended , no mass, no scars Genitourinary: normal external genitalia Extremities: no cyanosis, no clubbing Skin: no rash, no lesions, no ulcers Neurologic/Psychiatric: alert, responsive Lymphatic: no neck adenopathy, no groin adenopathy Musculoskeletal: normal muscle bulk Microbiology Date/Time Source Procedure Growth Status 03/28/18 17:30 Sputum Expectorated Gram Stain - Final Resulted 03/28/18 17:30 Sputum Culture - Preliminary Valentina Albicans Resulted Laboratory Tests Test 03/30/18 04:25 White Blood Count 8.4 K/UL (4.8-10.8) Red Blood Count 3.29 M/UL (4.70-6.10) L Hemoglobin 9.4 G/DL (14.2-18.0) L Hematocrit 29.7 % (42.0-52.0) L Mean Corpuscular Volume 90 FL (80-99) Mean Corpuscular Hemoglobin 28.7 PG (27.0-31.0) Mean Corpuscular Hemoglobin Concent 31.8 G/DL (32.0-36.0) L Red Cell Distribution Width 14.3 % (11.6-14.8) Platelet Count 280 K/UL (150-450) Mean Platelet Volume 5.7 FL (6.5-10.1) L Neutrophils (%) (Auto) 71.7 % (45.0-75.0) Lymphocytes (%) (Auto) 12.7 % (20.0-45.0) L Monocytes (%) (Auto) 10.9 % (1.0-10.0) H Eosinophils (%) (Auto) 3.9 % (0.0-3.0) H Basophils (%) (Auto) 0.7 % (0.0-2.0) Sodium Level 139 MMOL/L (136-145) Potassium Level 4.1 MMOL/L (3.5-5.1) Chloride Level 103 MMOL/L (98-107) Carbon Dioxide Level 29 MMOL/L (21-32) Anion Gap 7 mmol/L (5-15) Blood Urea Nitrogen 18 mg/dL (7-18) Creatinine 1.2 MG/DL (0.55-1.30) Estimat Glomerular Filtration Rate mL/min (>60) Glucose Level 83 MG/DL (74-106) Calcium Level 8.9 MG/DL (8.5-10.1) Current Medications Medications (Trade) Dose Ordered Sig/Colin Route PRN Reason Start Time Stop Time Status Last Admin Dose Admin Acetaminophen (Tylenol) 650 mg Q6H PRN ORAL Mild Pain/Temp > 100.5 03/27/18 17:00 04/24/18 16:59 Acetaminophen/ Hydrocodone Bitart ([place] 5/325) 1 tab Q6H PRN ORAL Severe Pain (Pain Scale 7-10) 03/27/18 17:00 04/01/18 16:59 Apixaban (Eliquis) 2.5 mg Q12HR ORAL 03/27/18 21:00 04/24/18 08:59 03/27/18 20:17 Atorvastatin Calcium (Lipitor) 20 mg BEDTIME ORAL 03/27/18 21:00 04/24/18 20:59 03/27/18 20:17 Aztreonam 2 gm/ Dextrose 110 ml @ 220 mls/hr Q8HR IVPB 03/27/18 22:00 04/01/18 13:59 03/30/18 05:07 Carbidopa/Levodopa (Sinemet 25/100) 1 tab THREE TIMES A DAY ORAL 03/27/18 18:00 04/24/18 08:59 03/30/18 10:40 Chlorhexidine Gluconate (Bonnie-Hex 2%) 1 applic DAILY@2000 TOPIC 03/29/18 20:00 04/28/18 19:59 03/29/18 20:48 Digoxin (Lanoxin) 0.25 mg DAILY ORAL 03/28/18 09:00 04/25/18 08:59 03/30/18 10:41 Furosemide (Lasix) 40 mg DAILY IV 03/30/18 09:00 04/29/18 08:59 03/30/18 10:12 Gabapentin (Neurontin) 100 mg DAILY ORAL 03/28/18 09:00 04/24/18 08:59 03/30/18 10:41 Iopamidol (Isovue-300 100ml) 100 ml NOW PRN INJ Radiology Procedure 03/28/18 16:15 03/30/18 23:59 Lactulose (Cephulac) 30 gm BID ORAL 03/27/18 18:00 04/24/18 08:59 03/30/18 10:41 Lorazepam (Ativan 2mg/ml 1ml) 1 mg Q8H PRN IV For Anxiety 03/27/18 17:00 04/01/18 16:59 03/29/18 09:41 Metoprolol Tartrate (Lopressor) 5 mg EVERY 12 HOURS IVP 03/28/18 21:00 04/27/18 20:59 03/30/18 10:12 Ondansetron HCl (Zofran) 4 mg Q4H PRN IVP Nausea & Vomiting 03/27/18 17:00 04/24/18 16:59 Pantoprazole (Protonix) 40 mg DAILY IVP 03/28/18 09:00 04/24/18 08:59 03/30/18 10:12 Sodium Chloride 1,000 ml @ 50 mls/hr Q20H IV 03/27/18 16:30 04/24/18 01:59 03/30/18 05:11 Tramadol HCl (Ultram) 50 mg Q8H PRN ORAL Moderate Pain (Pain Scale 4-6) 03/27/18 17:00 04/01/18 16:59 Vancomycin HCl (Vanco rx to dose) 1 ea DAILY PRN MISC . 03/28/18 09:00 04/26/18 09:14 Vancomycin HCl/ Dextrose 250 ml @ 167 mls/hr Q24H IVPB 03/27/18 23:00 04/03/18 22:59 03/29/18 23:44 Venlafaxine HCl (Effexor-XR) 37.5 mg DAILY ORAL 03/28/18 09:00 04/24/18 08:59 03/30/18 10:41 Srini Sam M.D. Mar 30, 2018 12:54
--- NOTE | 2018-03-30 13:42 | Cardiac Electrophysiology PN ---
Assessment/Plan Assessment/Plan 1. Atrial fibrillation with RVR. Change Metoprolol iv to Cardizem 60 q 6hr. On Dig and Hold Eliquis for Guaiac positive stool and possible PEG placement. Echo EF Nl on 03/06/18 2. History of hypertension. Cardizem and Lasix 3. Sepsis with elevated white count, on IV antibiotic. 4. Congestive heart failure due to diastolic dysfunction. BNP of more than 6000. Echocardiogram Nl EF.On Lasix 40 iv daily 5. Anemia and stool OB positive. DC Eliquis 6. Parkinson disease and dementia. 7. Dysphagia. ? PEG 8. Hx of Left hip surgery and high D. Dimer. LE duplex is negative for DVT. CT angio no PE DW RN Subjective Subjective Confused. In restraints.Has PICC line. New NG tube is in. Objective Last 24 Hour Vital Signs Date Time Temp Pulse Resp B/P (MAP) Pulse Ox O2 Delivery O2 Flow Rate FiO2 03/30/18 12:00 98.1 83 20 140/95 (110) 100 03/30/18 12:00 Nasal Cannula 2.0 03/30/18 11:54 101 03/30/18 10:41 87 03/30/18 10:12 87 155/91 03/30/18 08:00 Nasal Cannula 2.0 03/30/18 08:00 97.9 87 20 155/91 (112) 100 03/30/18 07:57 109 03/30/18 04:00 98.3 72 20 137/69 (91) 99 03/30/18 04:00 Nasal Cannula 2.0 03/30/18 04:00 96 03/30/18 00:00 98.1 91 18 129/76 (93) 100 03/30/18 00:00 111 03/30/18 00:00 Nasal Cannula 2.0 03/29/18 20:54 90 03/29/18 20:51 117 03/29/18 20:49 92 152/73 03/29/18 20:00 Nasal Cannula 2.0 03/29/18 20:00 97.9 100 20 122/75 (91) 100 03/29/18 20:00 114 03/29/18 16:00 Nasal Cannula 2.0 03/29/18 16:00 97.9 122 20 129/91 (104) 98 03/29/18 15:25 114 Intake and Output 03/29/18 03/30/18 18:59 06:59 Intake Total 350 ml 1364 ml Output Total 1750 ml 1450 ml Balance -1400 ml -86 ml IV Total 350 ml 1364 ml Output Urine Total 1750 ml 1450 ml # Bowel Movements 25 35 Laboratory Tests Test 03/30/18 04:25 White Blood Count 8.4 K/UL (4.8-10.8) Red Blood Count 3.29 M/UL (4.70-6.10) L Hemoglobin 9.4 G/DL (14.2-18.0) L Hematocrit 29.7 % (42.0-52.0) L Mean Corpuscular Volume 90 FL (80-99) Mean Corpuscular Hemoglobin 28.7 PG (27.0-31.0) Mean Corpuscular Hemoglobin Concent 31.8 G/DL (32.0-36.0) L Red Cell Distribution Width 14.3 % (11.6-14.8) Platelet Count 280 K/UL (150-450) Mean Platelet Volume 5.7 FL (6.5-10.1) L Neutrophils (%) (Auto) 71.7 % (45.0-75.0) Lymphocytes (%) (Auto) 12.7 % (20.0-45.0) L Monocytes (%) (Auto) 10.9 % (1.0-10.0) H Eosinophils (%) (Auto) 3.9 % (0.0-3.0) H Basophils (%) (Auto) 0.7 % (0.0-2.0) Sodium Level 139 MMOL/L (136-145) Potassium Level 4.1 MMOL/L (3.5-5.1) Chloride Level 103 MMOL/L (98-107) Carbon Dioxide Level 29 MMOL/L (21-32) Anion Gap 7 mmol/L (5-15) Blood Urea Nitrogen 18 mg/dL (7-18) Creatinine 1.2 MG/DL (0.55-1.30) Estimat Glomerular Filtration Rate mL/min (>60) Glucose Level 83 MG/DL (74-106) Calcium Level 8.9 MG/DL (8.5-10.1) Microbiology Date/Time Source Procedure Growth Status 03/28/18 17:30 Sputum Expectorated Gram Stain - Final Resulted 03/28/18 17:30 Sputum Culture - Preliminary Valentina Albicans Resulted Objective HEENT: No JVD. NG tube is in LUNGS: Coarse rhonchi. CARDIOVASCULAR: Irregularly irregular S1 and S2 with no murmur ABDOMEN: Soft. EXTREMITIES: No pitting edema. Gary Bay MD Mar 30, 2018 13:42
[2018-03-30 15:34] VITALS: BP 133/80
[2018-03-30] MEDS ORDERED: Tubing IV Secondary IV ONE (16:42)
[2018-03-30] MEDS ORDERED: NS 275ml ONE (16:42)
--- NOTE | 2018-03-30 17:15 | General Progress Note ---
Assessment/Plan Status: stable Assessment/Plan 1. A Fib with RVR - slightly tach at 101 today. on oral diltiazem and Dig. cardiology is following. He is in step down. 2. Pneumonia - ON IV Abx. ID is following. Swollowing eval pending for sunday. 3. Parkinson dx - cont home med. 4. HLD - cont home med. 5. Anemia - CBC stable. cont protonix 40 mg IV daily. Stool hemocult positive x 2. EGD negative for bleeding. colonoscopy pending on sunday. 6. Stool hemocult positive at rehab - Stool hemocult positive x 2 - colonoscopy on sunday. 7. Recent Hip surgery in previous admission - venous u/s of lower ext negative for DVT. CT of chest negative for PE. 8. Rt renal mass - discussed with pt's sister and she agrees to have urologist evaluate him. 9. Dysphagia - NG tube in place. swallowing eval pending for sunday. Subjective Date patient seen: Mar 30, 2018 Time patient seen: 04:35 Constitutional: Reports: weakness HEENT: Reports: no symptoms Cardiovascular: Reports: no symptoms Respiratory: Reports: no symptoms Gastrointestinal/Abdominal: Reports: no symptoms Genitourinary: Reports: no symptoms Neurologic/Psychiatric: Reports: no symptoms Endocrine: Reports: no symptoms Hematologic/Lymphatic: Reports: no symptoms Allergies: Coded Allergies: MORPHINE (Verified Allergy, Unknown, 03/25/18) PENICILLINS (Verified Allergy, Unknown, 03/05/18) Subjective This afternoon, he is slightly tachy in 101. He is in Step down now. He is awake and able to understand him today. He is going for colonoscopy on sunday. Upper EGD negative. 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 no sob or chest pain. no fever or chills. Objective Last 24 Hour Vital Signs Date Time Temp Pulse Resp B/P (MAP) Pulse Ox O2 Delivery O2 Flow Rate FiO2 03/30/18 16:00 Nasal Cannula 2.0 03/30/18 15:41 101 03/30/18 15:34 97.3 92 20 133/80 (97) 100 03/30/18 12:00 98.1 83 20 140/95 (110) 100 03/30/18 12:00 Nasal Cannula 2.0 12/8/18 11:54 101 03/30/18 10:41 87 03/30/18 10:12 87 155/91 03/30/18 08:00 Nasal Cannula 2.0 03/30/18 08:00 97.9 87 20 155/91 (112) 100 03/30/18 07:57 109 03/30/18 04:00 98.3 72 20 137/69 (91) 99 03/30/18 04:00 Nasal Cannula 2.0 03/30/18 04:00 96 03/30/18 00:00 98.1 91 18 129/76 (93) 100 03/30/18 00:00 111 03/30/18 00:00 Nasal Cannula 2.0 03/29/18 20:54 90 03/29/18 20:51 117 03/29/18 20:49 92 152/73 03/29/18 20:00 Nasal Cannula 2.0 03/29/18 20:00 97.9 100 20 122/75 (91) 100 03/29/18 20:00 114 Intake and Output 03/29/18 03/30/18 18:59 06:59 Intake Total 350 ml 1364 ml Output Total 1750 ml 1450 ml Balance -1400 ml -86 ml IV Total 350 ml 1364 ml Output Urine Total 1750 ml 1450 ml # Bowel Movements 25 35 Laboratory Tests 03/30/18 04:25: White Blood Count 8.4, Red Blood Count 3.29L, Hemoglobin 9.4L, Hematocrit 29.7L , Mean Corpuscular Volume 90, Mean Corpuscular Hemoglobin 28.7, Mean Corpuscular Hemoglobin Concent 31.8L, Red Cell Distribution Width 14.3, Platelet Count 280, Mean Platelet Volume 5.7L, Neutrophils (%) (Auto) 71.7, Lymphocytes (%) (Auto) 12.7L, Monocytes (%) (Auto) 10.9H, Eosinophils (%) (Auto ) 3.9H, Basophils (%) (Auto) 0.7, Sodium Level 139, Potassium Level 4.1, Chloride Level 103, Carbon Dioxide Level 29, Anion Gap 7, Blood Urea Nitrogen 18 , Creatinine 1.2, Estimat Glomerular Filtration Rate , Glucose Level 83, Calcium Level 8.9 Height (Feet): 5 Height (Inches): 9.00 Weight (Pounds): 229 General Appearance: no apparent distress, alert EENT: normal ENT inspection Neck: non-tender, normal alignment, supple Cardiovascular: normal rate, regular rhythm Respiratory/Chest: chest wall non-tender, lungs clear, normal breath sounds Abdomen: normal bowel sounds, non tender, soft Extremities: normal range of motion, non-tender Neurologic: alert, responsive Skin: warm/dry Lymphatic: normal anterior cervical (L), normal anterior cervical (R), normal posterior cervical (L), normal posterior cervical (R), normal submandibular (L) , normal submandibular (R), normal supraclavicular (L), normal supraclavicular ( R), normal axillary (L), normal axillary (R), normal inguinal (L), normal inguinal (R), normal other Shelby Arrington MD Mar 30, 2018 17:15
[2018-03-30] MEDS: dilTIAZem HCl 60mg tab NG SCH (17:16)
[2018-03-30 20:00] VITALS: BP 134/73
[2018-03-30] MEDS: Atorvastatin 20mg tab ORAL SCH (21:49)
[2018-03-30] MEDS: Dyna-Hex 2% Top Sol 2oz TOPIC SCH (21:49)
[2018-03-31] VITALS: BP 128/77
[2018-03-31] MEDS: dilTIAZem HCl 60mg tab NG SCH ×4 (00:03→17:11)
[2018-03-31] MEDS: Vancomycin 1250mg/D5W 250ml IVPB SCH (00:03)
[2018-03-31 04:00] VITALS: BP 131/91
[2018-03-31] MEDS: Aztreonam Inj 2 GM in D5W 110 ML IVPB SCH ×3 (06:09→22:40)
[2018-03-31 06:14] LABS: BASOPHILS % (AUTO) 0.5 % (0.0-2.0); EOSINOPHILS % (AUTO) 3.2 % (0.0-3.0); HEMATOCRIT 28.4 % (42.0-52.0); HEMOGLOBIN 9.2 G/DL (14.2-18.0); MEAN CORPUSCULAR VOLUME 90 FL (80-99); MONOCYTES % (AUTO) 9.8 % (1.0-10.0); NEUTROPHILS % (AUTO) 75.6 % (45.0-75.0); PLATELET COUNT 237 K/UL (150-450); RED BLOOD COUNT 3.16 M/UL (4.70-6.10); RED CELL DISTRIBUTION WIDTH 14.4 % (11.6-14.8); WHITE BLOOD COUNT 7.6 K/UL (4.8-10.8)
[2018-03-31 06:28] LABS: ANION GAP 8 mmol/L (5-15); BLOOD UREA NITROGEN 19 mg/dL (7-18); CALCIUM 8.3 MG/DL (8.5-10.1); CARBON DIOXIDE 29 MMOL/L (21-32); CHLORIDE 99 MMOL/L (98-107); CREATININE 1.3 MG/DL (0.55-1.30); POTASSIUM 3.4 MMOL/L (3.5-5.1); SODIUM 136 MMOL/L (136-145)
--- NOTE | 2018-03-31 07:45 | General Progress Note ---
Assessment/Plan Problem List: (1) Rapid atrial fibrillation ICD Codes: I48.91 - Unspecified atrial fibrillation SNOMED: 185720148 (2) Leukocytosis ICD Codes: D72.829 - Elevated white blood cell count, unspecified SNOMED: 430068151, 949752843 (3) Encephalopathy ICD Codes: G93.40 - Encephalopathy, unspecified SNOMED: 23236830 (4) Anemia ICD Codes: D64.9 - Anemia, unspecified SNOMED: 292497889 (5) CKD (chronic kidney disease) ICD Codes: N18.9 - Chronic kidney disease, unspecified SNOMED: 164333560 Assessment/Plan fu H&H ppi fu stool ob>>>positive x2 NGTF will hold for colonoscopy tomorrow neg EGD>> possible colonoscopy for Sunday fu cardiology Subjective ROS Limited/Unobtainable: No Allergies: Coded Allergies: MORPHINE (Verified Allergy, Unknown, 03/25/18) PENICILLINS (Verified Allergy, Unknown, 03/05/18) Objective Last 24 Hour Vital Signs Date Time Temp Pulse Resp B/P (MAP) Pulse Ox O2 Delivery O2 Flow Rate FiO2 03/31/18 06:09 79 131/91 03/31/18 04:00 79 03/31/18 04:00 98.8 90 18 131/91 (104) 100 03/31/18 04:00 Nasal Cannula 2.0 03/31/18 00:03 96 128/77 03/31/18 00:00 Nasal Cannula 2.0 03/31/18 00:00 91 03/31/18 00:00 98.1 92 18 128/77 (94) 99 03/30/18 20:00 97.7 90 20 134/73 (93) 100 03/30/18 20:00 Nasal Cannula 2.0 03/30/18 20:00 84 03/30/18 17:16 101 133/80 03/30/18 16:00 Nasal Cannula 2.0 03/30/18 15:41 101 03/30/18 15:34 97.3 92 20 133/80 (97) 100 03/30/18 12:00 98.1 83 20 140/95 (110) 100 03/30/18 12:00 Nasal Cannula 2.0 03/30/18 11:54 101 03/30/18 10:41 87 03/30/18 10:12 87 155/91 03/30/18 08:00 Nasal Cannula 2.0 03/30/18 08:00 97.9 87 20 155/91 (112) 100 03/30/18 07:57 109 Intake and Output 03/30/18 03/31/18 19:00 07:00 Intake Total 1320 ml 1530 ml Output Total 2720 ml 1350 ml Balance -1400 ml 180 ml Intake Free Water 290 ml 100 ml IV Total 710 ml 850 ml Tube Feeding 320 ml 480 ml Other 100 ml Output Urine Total 2600 ml 1000 ml Stool Total 120 ml 350 ml Laboratory Tests 03/30/18 22:00: Vancomycin Level Trough 20.1H 03/31/18 04:00: White Blood Count 7.6, Red Blood Count 3.16L, Hemoglobin 9.2L, Hematocrit 28.4L , Mean Corpuscular Volume 90, Mean Corpuscular Hemoglobin 29.3, Mean Corpuscular Hemoglobin Concent 32.6, Red Cell Distribution Width 14.4, Platelet Count 237, Mean Platelet Volume 5.9L, Neutrophils (%) (Auto) 75.6H, Lymphocytes (%) (Auto) 11.0L, Monocytes (%) (Auto) 9.8, Eosinophils (%) (Auto) 3.2H, Basophils (%) (Auto) 0.5, Sodium Level 136, Potassium Level 3.4L, Chloride Level 99, Carbon Dioxide Level 29, Anion Gap 8, Blood Urea Nitrogen 19H, Creatinine 1.3, Estimat Glomerular Filtration Rate , Glucose Level 129H, Calcium Level 8.3L, Carcinoembryonic Antigen [Pending] Height (Feet): 5 Height (Inches): 9.00 Weight (Pounds): 228 General Appearance: confused EENT: normal ENT inspection Neck: supple Cardiovascular: normal rate Respiratory/Chest: decreased breath sounds Abdomen: normal bowel sounds, non tender, soft Extremities: non-tender Olegario Barrera MD Mar 31, 2018 07:45
[2018-03-31 08:00] VITALS: BP 135/87
[2018-03-31] MEDS: Pantoprazole Inj IVP SCH (08:22)
[2018-03-31] MEDS: Levodopa/Carbidopa 25/100 tab ORAL SCH ×3 (08:22→17:11)
[2018-03-31] MEDS: Venlafaxine XR 37.5mg cap ORAL SCH (08:23)
[2018-03-31] MEDS ORDERED: Tubing IV Secondary IV ONE (08:39)
--- NOTE | 2018-03-31 11:53 | General Progress Note ---
Assessment/Plan Status: stable Assessment/Plan 1. A Fib with RVR - HR improved. on oral diltiazem and Dig. cardiology is following. He is in step down. 2. Pneumonia - ON IV Abx for total of 10 days. ID is following. Swollowing eval pending. 3. Parkinson dx - cont home med. 4. HLD - cont home med. 5. Anemia - CBC stable. cont protonix 40 mg IV daily. Stool hemocult positive x 2. EGD negative for bleeding. colonoscopy pending on sunday. 6. Stool hemocult positive at rehab - Stool hemocult positive x 2 - colonoscopy on sunday. Eliquis on hold for colonoscopy. 7. Recent Hip surgery in previous admission - venous u/s of lower ext negative for DVT. CT of chest negative for PE. 8. Rt renal mass - discussed with pt's sister and she agrees to have urologist to evaluate him. 9. Dysphagia - NG tube in place. swallowing eval pending. Subjective Date patient seen: Mar 31, 2018 Time patient seen: 09:00 Constitutional: Reports: weakness HEENT: Reports: no symptoms Cardiovascular: Reports: irregular heart rate Respiratory: Reports: no symptoms Gastrointestinal/Abdominal: Reports: no symptoms Genitourinary: Reports: no symptoms Neurologic/Psychiatric: Reports: no symptoms Endocrine: Reports: no symptoms Hematologic/Lymphatic: Reports: no symptoms Allergies: Coded Allergies: MORPHINE (Verified Allergy, Unknown, 03/25/18) PENICILLINS (Verified Allergy, Unknown, 03/05/18) Subjective This morning he is doing well. He is afebrile. awaiting colonoscopy tomorrow. no sob or chest pain. Objective Last 24 Hour Vital Signs Date Time Temp Pulse Resp B/P (MAP) Pulse Ox O2 Delivery O2 Flow Rate FiO2 03/31/18 11:28 98 123/71 03/31/18 08:23 84 03/31/18 08:00 Nasal Cannula 2.0 03/31/18 08:00 98.1 84 20 135/87 (103) 100 03/31/18 07:47 78 03/31/18 06:09 79 131/91 03/31/18 04:00 79 03/31/18 04:00 98.8 90 18 131/91 (104) 100 03/31/18 04:00 Nasal Cannula 2.0 03/31/18 00:03 96 128/77 03/31/18 00:00 Nasal Cannula 2.0 03/31/18 00:00 91 03/31/18 00:00 98.1 92 18 128/77 (94) 99 03/30/18 20:00 97.7 90 20 134/73 (93) 100 03/30/18 20:00 Nasal Cannula 2.0 03/30/18 20:00 84 03/30/18 17:16 101 133/80 03/30/18 16:00 Nasal Cannula 2.0 03/30/18 15:41 101 03/30/18 15:34 97.3 92 20 133/80 (97) 100 03/30/18 12:00 98.1 83 20 140/95 (110) 100 03/30/18 12:00 Nasal Cannula 2.0 03/30/18 11:54 101 Intake and Output 03/30/18 03/31/18 19:00 07:00 Intake Total 1320 ml 1530 ml Output Total 2720 ml 1350 ml Balance -1400 ml 180 ml Intake Free Water 290 ml 100 ml IV Total 710 ml 850 ml Tube Feeding 320 ml 480 ml Other 100 ml Output Urine Total 2600 ml 1000 ml Stool Total 120 ml 350 ml Laboratory Tests 03/30/18 22:00: Vancomycin Level Trough 20.1H 03/31/18 04:00: White Blood Count 7.6, Red Blood Count 3.16L, Hemoglobin 9.2L, Hematocrit 28.4L , Mean Corpuscular Volume 90, Mean Corpuscular Hemoglobin 29.3, Mean Corpuscular Hemoglobin Concent 32.6, Red Cell Distribution Width 14.4, Platelet Count 237, Mean Platelet Volume 5.9L, Neutrophils (%) (Auto) 75.6H, Lymphocytes (%) (Auto) 11.0L, Monocytes (%) (Auto) 9.8, Eosinophils (%) (Auto) 3.2H, Basophils (%) (Auto) 0.5, Sodium Level 136, Potassium Level 3.4L, Chloride Level 99, Carbon Dioxide Level 29, Anion Gap 8, Blood Urea Nitrogen 19H, Creatinine 1.3, Estimat Glomerular Filtration Rate , Glucose Level 129H, Calcium Level 8.3L, Carcinoembryonic Antigen [Pending] Height (Feet): 5 Height (Inches): 9.00 Weight (Pounds): 228 General Appearance: no apparent distress, alert EENT: normal ENT inspection Neck: non-tender, supple Cardiovascular: normal rate, regularly irregular Respiratory/Chest: chest wall non-tender, lungs clear, normal breath sounds Abdomen: normal bowel sounds, non tender, soft Extremities: normal range of motion, non-tender Edema: no edema noted Arm (L), no edema noted Arm (R), no edema noted Leg (L), no edema noted Leg (R), no edema noted Pedal (L), no edema noted Pedal (R), no edema noted Generalized Neurologic: responsive Skin: warm/dry Lymphatic: normal anterior cervical (L), normal anterior cervical (R), normal posterior cervical (L), normal posterior cervical (R), normal submandibular (L) , normal submandibular (R), normal supraclavicular (L), normal supraclavicular ( R), normal axillary (L), normal axillary (R), normal inguinal (L), normal inguinal (R), normal other Shelby Arrington MD Mar 31, 2018 11:53
[2018-03-31 12:00] VITALS: BP 123/71
--- NOTE | 2018-03-31 15:43 | Cardiac Electrophysiology PN ---
Assessment/Plan Assessment/Plan 1. Atrial fibrillation with RVR. On Cardizem 60 q 6hr and Dig 0.25 NG daily On Dig and Hold Eliquis for Guaiac positive stool and possible PEG placement. Echo EF Nl on 03/06/18 2. History of hypertension. Cardizem and Lasix 3. Sepsis with elevated white count, on IV antibiotic. 4. Congestive heart failure due to diastolic dysfunction. BNP of more than 6000. Echocardiogram Nl EF.On Lasix 40 iv daily 5. Anemia and stool OB positive. Colonoscopy in am. 6. Parkinson disease and dementia. 7. Dysphagia. ? PEG 8. Hx of Left hip surgery and high D. Dimer. LE duplex is negative for DVT. CT angio no PE DW RN Subjective Subjective Confused. In restraints. NG tube is in.Colonoscopy in am pending Objective Last 24 Hour Vital Signs Date Time Temp Pulse Resp B/P (MAP) Pulse Ox O2 Delivery O2 Flow Rate FiO2 03/31/18 12:00 Nasal Cannula 2.0 03/31/18 12:00 85 03/31/18 12:00 97.7 98 20 123/71 (88) 99 03/31/18 11:28 98 123/71 03/31/18 08:23 84 03/31/18 08:00 Nasal Cannula 2.0 03/31/18 08:00 98.1 84 20 135/87 (103) 100 03/31/18 07:47 78 03/31/18 06:09 79 131/91 03/31/18 04:00 79 03/31/18 04:00 98.8 90 18 131/91 (104) 100 03/31/18 04:00 Nasal Cannula 2.0 03/31/18 00:03 96 128/77 03/31/18 00:00 Nasal Cannula 2.0 03/31/18 00:00 91 03/31/18 00:00 98.1 92 18 128/77 (94) 99 03/30/18 20:00 97.7 90 20 134/73 (93) 100 03/30/18 20:00 Nasal Cannula 2.0 03/30/18 20:00 84 03/30/18 17:16 101 133/80 03/30/18 16:00 Nasal Cannula 2.0 Intake and Output 03/30/18 03/31/18 19:00 07:00 Intake Total 1320 ml 1530 ml Output Total 2720 ml 1350 ml Balance -1400 ml 180 ml Intake Free Water 290 ml 100 ml IV Total 710 ml 850 ml Tube Feeding 320 ml 480 ml Other 100 ml Output Urine Total 2600 ml 1000 ml Stool Total 120 ml 350 ml Laboratory Tests Test 03/30/18 22:00 03/31/18 04:00 Vancomycin Level Trough 20.1 ug/mL (5.0-12.0) H White Blood Count 7.6 K/UL (4.8-10.8) Red Blood Count 3.16 M/UL (4.70-6.10) L Hemoglobin 9.2 G/DL (14.2-18.0) L Hematocrit 28.4 % (42.0-52.0) L Mean Corpuscular Volume 90 FL (80-99) Mean Corpuscular Hemoglobin 29.3 PG (27.0-31.0) Mean Corpuscular Hemoglobin Concent 32.6 G/DL (32.0-36.0) Red Cell Distribution Width 14.4 % (11.6-14.8) Platelet Count 237 K/UL (150-450) Mean Platelet Volume 5.9 FL (6.5-10.1) L Neutrophils (%) (Auto) 75.6 % (45.0-75.0) H Lymphocytes (%) (Auto) 11.0 % (20.0-45.0) L Monocytes (%) (Auto) 9.8 % (1.0-10.0) Eosinophils (%) (Auto) 3.2 % (0.0-3.0) H Basophils (%) (Auto) 0.5 % (0.0-2.0) Sodium Level 136 MMOL/L (136-145) Potassium Level 3.4 MMOL/L (3.5-5.1) L Chloride Level 99 MMOL/L (98-107) Carbon Dioxide Level 29 MMOL/L (21-32) Anion Gap 8 mmol/L (5-15) Blood Urea Nitrogen 19 mg/dL (7-18) H Creatinine 1.3 MG/DL (0.55-1.30) Estimat Glomerular Filtration Rate mL/min (>60) Glucose Level 129 MG/DL (74-106) H Calcium Level 8.3 MG/DL (8.5-10.1) L Carcinoembryonic Antigen Pending Microbiology Date/Time Source Procedure Growth Status 03/28/18 17:30 Sputum Expectorated Gram Stain - Final Complete 03/28/18 17:30 Sputum Culture - Final Valentina Albicans Complete Objective HEENT: No JVD. NG tube is in LUNGS: Coarse rhonchi. CARDIOVASCULAR: Irregularly irregular S1 and S2 with no murmur ABDOMEN: Soft. EXTREMITIES: No pitting edema. Gary Bay MD Mar 31, 2018 15:43
[2018-03-31 16:00] VITALS: BP 106/67
[2018-03-31] MEDS ORDERED: Nulytely 4L ORAL SCH (16:00)
[2018-03-31] MEDS: D5 1/2NS w/KCl 20mEq 1,000 ML IV SCH (16:00)
--- NOTE | 2018-03-31 17:10 | Infectious Diseases Prog Note ---
Assessment/Plan Problems: (1) Healthcare-associated pneumonia Assessment & Plan: confirmed on CT chest , with B/L interstitial infiltrates , continue aztreonam and vancomycin empirically for 10 days . aspiration precaution and swallow eval when fully awake (2) STUART (acute kidney injury) Assessment & Plan: improving continue gentle hydration , and renally dosed meds as per pharmacy (3) Trochanteric fracture of left femur Assessment & Plan: S/P ORIF, X ray no hardware failure (4) Rapid atrial fibrillation Assessment & Plan: on diltiazem , cardiology is following (5) Encephalopathy Assessment & Plan: due to the above, continue supportive care, monitor closely (6) Acute CVA (cerebrovascular accident) Assessment & Plan: already on anticoagulation for A.fib, continue neuro check (7) Renal mass, right Assessment & Plan: recommend urology consult , for possible radical nephrectomy Subjective Constitutional: Reports: no symptoms HEENT: Reports: no symptoms Respiratory: Reports: no symptoms Breasts: Reports: no symptoms Cardiovascular: Reports: no symptoms Gastrointestinal/Abdominal: Reports: no symptoms Genitourinary: Reports: no symptoms Neurologic: Reports: weakness, confusion, other - left facial droop Psychiatric: Reports: no symptoms, anxiety Skin: Reports: no symptoms Endocrine: Reports: no symptoms Hematologic: Reports: no symptoms Musculoskeletal: Reports: no symptoms Allergies: Coded Allergies: MORPHINE (Verified Allergy, Unknown, 03/25/18) PENICILLINS (Verified Allergy, Unknown, 03/05/18) Subjective he is awake and responsive, but confused and incoherent , still has NGT in. afebrile Objective Vital Signs Last 24 Hour Vital Signs Date Time Temp Pulse Resp B/P (MAP) Pulse Ox O2 Delivery O2 Flow Rate FiO2 03/31/18 16:00 97.3 86 19 106/67 (80) 99 03/31/18 16:00 Nasal Cannula 2.0 03/31/18 15:41 86 03/31/18 12:00 Nasal Cannula 2.0 03/31/18 12:00 85 03/31/18 12:00 97.7 98 20 123/71 (88) 99 03/31/18 11:28 98 123/71 03/31/18 08:23 84 03/31/18 08:00 Nasal Cannula 2.0 03/31/18 08:00 98.1 84 20 135/87 (103) 100 03/31/18 07:47 78 03/31/18 06:09 79 131/91 03/31/18 04:00 79 03/31/18 04:00 98.8 90 18 131/91 (104) 100 03/31/18 04:00 Nasal Cannula 2.0 03/31/18 00:03 96 128/77 03/31/18 00:00 Nasal Cannula 2.0 03/31/18 00:00 91 03/31/18 00:00 98.1 92 18 128/77 (94) 99 03/30/18 20:00 97.7 90 20 134/73 (93) 100 03/30/18 20:00 Nasal Cannula 2.0 03/30/18 20:00 84 03/30/18 17:16 101 133/80 Height (Feet): 5 Height (Inches): 9.00 Weight (Pounds): 228 General Appearance: WD/WN, no acute distress HEENT: normocephalic, atraumatic, anicteric, mucous membranes moist, PERRL, EOMI, pharynx normal, supple, no JVD Respiratory/Chest: chest wall non-tender, lungs clear, normal breath sounds, no respiratory distress, no accessory muscle use Cardiovascular: normal peripheral pulses, normal rate, regular rhythm, no gallop/murmur, no JVD Abdomen: normal bowel sounds, soft, non tender, no organomegaly, non distended , no mass, no scars Extremities: no cyanosis, no clubbing Skin: no rash, no lesions, no ulcers Neurologic/Psychiatric: alert, oriented x 3, responsive Lymphatic: no neck adenopathy, no groin adenopathy Musculoskeletal: normal muscle bulk, no effusion Microbiology Date/Time Source Procedure Growth Status 03/28/18 17:30 Sputum Expectorated Gram Stain - Final Complete 03/28/18 17:30 Sputum Culture - Final Valentina Albicans Complete Laboratory Tests Test 03/30/18 22:00 03/31/18 04:00 Vancomycin Level Trough 20.1 ug/mL (5.0-12.0) H White Blood Count 7.6 K/UL (4.8-10.8) Red Blood Count 3.16 M/UL (4.70-6.10) L Hemoglobin 9.2 G/DL (14.2-18.0) L Hematocrit 28.4 % (42.0-52.0) L Mean Corpuscular Volume 90 FL (80-99) Mean Corpuscular Hemoglobin 29.3 PG (27.0-31.0) Mean Corpuscular Hemoglobin Concent 32.6 G/DL (32.0-36.0) Red Cell Distribution Width 14.4 % (11.6-14.8) Platelet Count 237 K/UL (150-450) Mean Platelet Volume 5.9 FL (6.5-10.1) L Neutrophils (%) (Auto) 75.6 % (45.0-75.0) H Lymphocytes (%) (Auto) 11.0 % (20.0-45.0) L Monocytes (%) (Auto) 9.8 % (1.0-10.0) Eosinophils (%) (Auto) 3.2 % (0.0-3.0) H Basophils (%) (Auto) 0.5 % (0.0-2.0) Sodium Level 136 MMOL/L (136-145) Potassium Level 3.4 MMOL/L (3.5-5.1) L Chloride Level 99 MMOL/L (98-107) Carbon Dioxide Level 29 MMOL/L (21-32) Anion Gap 8 mmol/L (5-15) Blood Urea Nitrogen 19 mg/dL (7-18) H Creatinine 1.3 MG/DL (0.55-1.30) Estimat Glomerular Filtration Rate mL/min (>60) Glucose Level 129 MG/DL (74-106) H Calcium Level 8.3 MG/DL (8.5-10.1) L Carcinoembryonic Antigen Pending Current Medications Medications (Trade) Dose Ordered Sig/Colin Route PRN Reason Start Time Stop Time Status Last Admin Dose Admin Acetaminophen (Tylenol) 650 mg Q6H PRN ORAL Mild Pain/Temp > 100.5 03/27/18 17:00 04/24/18 16:59 Acetaminophen/ Hydrocodone Bitart ([place] 5/325) 1 tab Q6H PRN ORAL Severe Pain (Pain Scale 7-10) 03/27/18 17:00 04/01/18 16:59 Atorvastatin Calcium (Lipitor) 20 mg BEDTIME ORAL 03/27/18 21:00 04/24/18 20:59 03/30/18 21:49 Aztreonam 2 gm/ Dextrose 110 ml @ 220 mls/hr Q8HR IVPB 03/27/18 22:00 04/01/18 13:59 03/31/18 13:08 Carbidopa/Levodopa (Sinemet 25/100) 1 tab THREE TIMES A DAY ORAL 03/27/18 18:00 04/24/18 08:59 03/31/18 12:07 Chlorhexidine Gluconate (Bonnie-Hex 2%) 1 applic DAILY@2000 TOPIC 03/29/18 20:00 04/28/18 19:59 03/30/18 21:49 Dextrose/ Electrolytes 1,000 ml @ 75 mls/hr [id number] IV 03/31/18 16:00 04/30/18 15:59 03/31/18 16:00 Digoxin (Lanoxin) 0.25 mg DAILY ORAL 03/28/18 09:00 04/25/18 08:59 03/31/18 08:23 Diltiazem HCl (Cardizem) 60 mg EVERY 6 HOURS NG 03/30/18 18:00 04/29/18 17:59 03/31/18 11:28 Furosemide (Lasix) 40 mg DAILY IV 03/30/18 09:00 04/29/18 08:59 03/31/18 08:22 Gabapentin (Neurontin) 100 mg DAILY ORAL 03/28/18 09:00 04/24/18 08:59 03/31/18 08:22 Lorazepam (Ativan 2mg/ml 1ml) 1 mg Q8H PRN IV For Anxiety 03/27/18 17:00 04/01/18 16:59 03/29/18 09:41 Ondansetron HCl (Zofran) 4 mg Q4H PRN IVP Nausea & Vomiting 03/27/18 17:00 04/24/18 16:59 Pantoprazole (Protonix) 40 mg DAILY IVP 03/28/18 09:00 04/24/18 08:59 03/31/18 08:22 Polyethylene Glycol/ Electrolytes (Nulytely) 4,000 ml ONCE ORAL 03/31/18 16:00 03/31/18 22:00 03/31/18 16:00 Tamsulosin HCl (Flomax) 0.4 mg BEDTIME ORAL 03/31/18 21:00 04/30/18 20:59 Tramadol HCl (Ultram) 50 mg Q8H PRN ORAL Moderate Pain (Pain Scale 4-6) 03/27/18 17:00 04/01/18 16:59 Vancomycin HCl (Vanco rx to dose) 1 ea DAILY PRN MISC . 03/28/18 09:00 04/26/18 09:14 Vancomycin HCl/ Dextrose 250 ml @ 166.667 mls/hr Q24H IVPB 03/31/18 00:00 04/05/18 00:00 03/31/18 00:03 Venlafaxine HCl (Effexor-XR) 37.5 mg DAILY ORAL 03/28/18 09:00 04/24/18 08:59 03/31/18 08:23 Srini Sam M.D. Mar 31, 2018 17:10
[2018-03-31 20:00] VITALS: BP 114/60
[2018-03-31] MEDS: Dyna-Hex 2% Top Sol 2oz TOPIC SCH (20:15)
[2018-03-31] MEDS: Tamsulosin 0.4mg cap ORAL SCH (20:16)
[2018-03-31] MEDS: Atorvastatin 20mg tab ORAL SCH (20:16)
--- NOTE | 2018-03-31 21:15 | Consultation ---
DATE OF CONSULTATION: 03/31/2018 CONSULTING PHYSICIAN: David Chase M.D. REFERRING PHYSICIAN: Shelby Arrington M.D. REASON FOR CONSULTATION: Evaluation of renal mass. HISTORY OF PRESENT ILLNESS: This is an 87-year-old male who was admitted to the hospital because of rapid heart rate, arrhythmia, and anemia. He has multiple other medical issues including atrial fibrillation and pneumonia. He also has a history of Parkinson disease. He had a workup including a CT scan which showed a renal mass. Urology evaluation is requested. The patient is confused. Most of the history was obtained from the chart. Apparently, he does have history of BPH. He has a condom catheter currently, but he has been unable to void. He has some incontinence. PAST MEDICAL HISTORY: Significant for above, again coronary artery disease, atrial fibrillation, pneumonia, Parkinson disease, anemia, dysphagia. PAST SURGICAL HISTORY: Unknown. CURRENT MEDICATIONS: Here in the hospital, the patient is on vancomycin, diltiazem, Lasix, digoxin, gabapentin, Protonix, Effexor, aztreonam, Lipitor, Sinemet, Tylenol, Ativan, Zofran, Ultram. ALLERGIES: To morphine, penicillin. SOCIAL HISTORY: Smoking is unknown. FAMILY HISTORY: Unable to obtain. REVIEW OF SYSTEMS: Unable to obtain. PHYSICAL EXAMINATION: GENERAL: Elderly male in no acute distress. VITAL SIGNS: Temperature is 97.7, blood pressure 122/71, pulse 98, respirations 20. HEENT: Normocephalic. NECK: Supple. NG tube is in place ABDOMEN: Soft. No CVA tenderness. Condom catheter is in place. Urine is grossly yellow. LABORATORY DATA: UA showed 2+ blood, 3+ protein, 0 to 2 rbc's. White count 7.6, hemoglobin 9.2, platelets 237, BUN 19, creatinine is 1.3, potassium 3.4. There is no recent urine culture. His last blood cultures were negative. DIAGNOSTIC IMAGING STUDIES: The patient had a CT scan of the abdomen and pelvis this was done three days ago. There was mention of solid mass of the lower pole of the right kidney about 4 cm. There is also another 1.6 cm mass off the inferior pole of the right kidney and there was also a 3.3 cm right mass, which was indeterminate, possibly proteinaceous cyst. There was also mention of parapelvic cysts. There was no mention of stones or hydronephrosis. IMPRESSION: 1. Renal mass which can potentially be concerning for renal cell carcinoma. 2. Renal cysts. 3. Urinary incontinence. 4. Benign prostatic hypertrophy history. 5. Probable neurogenic bladder. 6. Proteinuria. 7. Hematuria. PLAN AND DISCUSSION: Again the patient does have what appears to be a solid renal mass. This could be a malignancy. He also has intermittent masses as well as cyst. At this time, I would recommend watching clinically and at some point he is medically feasible and is a candidate, may consider surgical excision. Otherwise, he may be watched with serial imaging. I will also add empiric Flomax 0.4 mg daily. Formal renal ultrasound will also be obtained for evaluation of the indeterminate mass. Thank you, Dr. Arrington for this consultation. David Chase M.D. DR: Andrew JOB#: [id number] CC:
[2018-04-01] VITALS (11 sets, daily range): BP systolic 111–144; BP diastolic 60–84
[2018-04-01] MEDS: dilTIAZem HCl 60mg tab NG SCH ×5 (00:54→23:54)
[2018-04-01] MEDS: Vancomycin 1250mg/D5W 250ml IVPB SCH ×2 (00:54→23:54)
[2018-04-01 05:22] LABS: BASOPHILS % (AUTO) 0.7 % (0.0-2.0); HEMATOCRIT 29.9 % (42.0-52.0); HEMOGLOBIN 9.5 G/DL (14.2-18.0); LYMPHOCYTES % (AUTO) 9.9 % (20.0-45.0); MEAN CORPUSCULAR VOLUME 88 FL (80-99); NEUTROPHILS % (AUTO) 74.3 % (45.0-75.0); PLATELET COUNT 220 K/UL (150-450); RED BLOOD COUNT 3.38 M/UL (4.70-6.10); RED CELL DISTRIBUTION WIDTH 14.4 % (11.6-14.8); WHITE BLOOD COUNT 7.7 K/UL (4.8-10.8)
[2018-04-01] MEDS: D5 1/2NS w/KCl 20mEq 1,000 ML IV SCH ×2 (05:24→18:54)
[2018-04-01] MEDS: Aztreonam Inj 2 GM in D5W 110 ML IVPB SCH ×3 (05:25→21:33)
[2018-04-01 05:39] LABS: ANION GAP 7 mmol/L (5-15); BLOOD UREA NITROGEN 17 mg/dL (7-18); CALCIUM 8.4 MG/DL (8.5-10.1); CARBON DIOXIDE 30 MMOL/L (21-32); CHLORIDE 99 MMOL/L (98-107); CREATININE 1.3 MG/DL (0.55-1.30); POTASSIUM 3.6 MMOL/L (3.5-5.1); SODIUM 136 MMOL/L (136-145)
[2018-04-01] MEDS: Pantoprazole Inj IVP SCH (08:53)
[2018-04-01] MEDS: Venlafaxine XR 37.5mg cap ORAL SCH (08:53)
[2018-04-01] MEDS: Levodopa/Carbidopa 25/100 tab ORAL SCH ×3 (08:54→17:42)
--- NOTE | 2018-04-01 09:53 | Urology Progress Note ---
Assessment/Plan Assessment/Plan 1. Renal mass which can potentially be concerning for renal cell carcinoma. 2. Renal cysts. 3. Urinary incontinence. 4. Benign prostatic hypertrophy history. 5. Probable neurogenic bladder. 6. Proteinuria. 7. Hematuria. monitor clinically f/u on renal u/s flomax added Subjective Allergies: Coded Allergies: MORPHINE (Verified Allergy, Unknown, 03/25/18) PENICILLINS (Verified Allergy, Unknown, 03/05/18) Subjective all noted Objective Last 24 Hour Vital Signs Date Time Temp Pulse Resp B/P (MAP) Pulse Ox O2 Delivery O2 Flow Rate FiO2 04/01/18 08:53 87 04/01/18 08:00 97.5 87 20 141/84 (103) 98 04/01/18 05:47 90 132/74 04/01/18 04:00 90 04/01/18 04:00 97.9 92 18 132/74 (93) 100 04/01/18 04:00 Nasal Cannula 2.0 04/01/18 00:54 88 120/67 04/01/18 00:00 Nasal Cannula 2.0 04/01/18 00:00 99.5 88 18 120/60 (80) 100 04/01/18 00:00 97 03/31/18 20:00 97.2 81 19 114/60 (78) 100 03/31/18 20:00 84 03/31/18 20:00 Nasal Cannula 2.0 03/31/18 17:11 86 106/67 03/31/18 16:00 97.3 86 19 106/67 (80) 99 03/31/18 16:00 Nasal Cannula 2.0 03/31/18 15:41 86 03/31/18 12:00 Nasal Cannula 2.0 03/31/18 12:00 85 03/31/18 12:00 97.7 98 20 123/71 (88) 99 03/31/18 11:28 98 123/71 Intake and Output 03/31/18 04/01/18 19:00 07:00 Intake Total 2955 ml 3310.000 ml Output Total 350 ml Balance 2955 ml 2960.000 ml IV Total 1035 ml 1110.000 ml Other 1920 ml 2200 ml Output Urine Total 350 ml # Bowel Movements 1 5 Microbiology Date/Time Source Procedure Growth Status 03/24/18 21:15 Blood Blood Culture - Final NO GROWTH AFTER 5 DAYS Complete 03/28/18 17:30 Sputum Expectorated Gram Stain - Final Complete 03/28/18 17:30 Sputum Culture - Final Valentina Albicans Complete 03/24/18 21:30 Rectum - Final NO CARBAPENEM-RESISTANT ENTEROBACTERI... Complete Current Medications Medications (Trade) Dose Ordered Sig/Colin Route PRN Reason Start Time Stop Time Status Last Admin Dose Admin Acetaminophen (Tylenol) 650 mg Q6H PRN ORAL Mild Pain/Temp > 100.5 03/27/18 17:00 04/24/18 16:59 Acetaminophen/ Hydrocodone Bitart ([place] 5/325) 1 tab Q6H PRN ORAL Severe Pain (Pain Scale 7-10) 03/27/18 17:00 04/01/18 16:59 Atorvastatin Calcium (Lipitor) 20 mg BEDTIME ORAL 03/27/18 21:00 04/24/18 20:59 03/31/18 20:16 Aztreonam 2 gm/ Dextrose 110 ml @ 220 mls/hr Q8HR IVPB 03/27/18 22:00 04/01/18 13:59 04/01/18 05:25 Carbidopa/Levodopa (Sinemet 25/100) 1 tab THREE TIMES A DAY ORAL 03/27/18 18:00 04/24/18 08:59 04/01/18 08:54 Chlorhexidine Gluconate (Bonnie-Hex 2%) 1 applic DAILY@2000 TOPIC 03/29/18 20:00 04/28/18 19:59 03/31/18 20:15 Dextrose/ Electrolytes 1,000 ml @ 75 mls/hr [id number] IV 03/31/18 16:00 04/30/18 15:59 04/01/18 05:24 Digoxin (Lanoxin) 0.25 mg DAILY ORAL 03/28/18 09:00 04/25/18 08:59 04/01/18 08:53 Diltiazem HCl (Cardizem) 60 mg EVERY 6 HOURS NG 03/30/18 18:00 04/29/18 17:59 04/01/18 05:47 Furosemide (Lasix) 40 mg DAILY IV 03/30/18 09:00 04/29/18 08:59 04/01/18 08:53 Gabapentin (Neurontin) 100 mg DAILY ORAL 03/28/18 09:00 04/24/18 08:59 04/01/18 08:53 Lorazepam (Ativan 2mg/ml 1ml) 1 mg Q8H PRN IV For Anxiety 03/27/18 17:00 04/01/18 16:59 03/29/18 09:41 Ondansetron HCl (Zofran) 4 mg Q4H PRN IVP Nausea & Vomiting 03/27/18 17:00 04/24/18 16:59 Pantoprazole (Protonix) 40 mg DAILY IVP 03/28/18 09:00 04/24/18 08:59 04/01/18 08:53 Tamsulosin HCl (Flomax) 0.4 mg BEDTIME ORAL 03/31/18 21:00 04/30/18 20:59 03/31/18 20:16 Tramadol HCl (Ultram) 50 mg Q8H PRN ORAL Moderate Pain (Pain Scale 4-6) 03/27/18 17:00 04/01/18 16:59 Vancomycin HCl (Vanco rx to dose) 1 ea DAILY PRN MISC . 03/28/18 09:00 04/26/18 09:14 Vancomycin HCl/ Dextrose 250 ml @ 166.667 mls/hr Q24H IVPB 03/31/18 00:00 04/05/18 00:00 04/01/18 00:54 Venlafaxine HCl (Effexor-XR) 37.5 mg DAILY ORAL 03/28/18 09:00 04/24/18 08:59 04/01/18 08:53 Laboratory Tests 04/01/18 03:30: White Blood Count 7.7, Red Blood Count 3.38L, Hemoglobin 9.5L, Hematocrit 29.9L , Mean Corpuscular Volume 88, Mean Corpuscular Hemoglobin 28.0, Mean Corpuscular Hemoglobin Concent 31.7L, Red Cell Distribution Width 14.4, Platelet Count 220, Mean Platelet Volume 6.1L, Neutrophils (%) (Auto) 74.3, Lymphocytes (%) (Auto) 9.9L, Monocytes (%) (Auto) 11.0H, Eosinophils (%) (Auto) 4.0H, Basophils (%) (Auto) 0.7, Sodium Level 136, Potassium Level 3.6, Chloride Level 99, Carbon Dioxide Level 30, Anion Gap 7, Blood Urea Nitrogen 17, Creatinine 1.3, Estimat Glomerular Filtration Rate , Glucose Level 140H, Calcium Level 8.4L Height (Feet): 5 Height (Inches): 8.00 Weight (Pounds): 216 Objective exam stable David Chase MD Apr 01, 2018 09:53
--- NOTE | 2018-04-01 12:39 | Pre-Procedure Note/Attestation ---
Pre-Procedure Note/Attestation Complete Prior to Procedure Planned Procedure: not applicable Procedure Narrative: colonoscopy Indications for Procedure Pre-Operative Diagnosis: GIB Attestation I attest that I discussed the nature of the procedure; its benefits; risks and complications; and alternatives (and the risks and benefits of such alternatives ), prior to the procedure, with the patient (or the patient's legal contracts representative). I attest that, if there was a reasonable possibility of needing a blood transfusion, the patient (or the patient's legal contracts representative) was given the [facility] standardized written summary, pursuant to the Tanner Giacomo Blood Safety Act ([place] Health and Safety Code # 1645, as amended). I attest that I re-evaluated the patient just prior to the surgery and that there has been no change in the patient's H&P, except as documented below: Olegario Barrera MD Apr 01, 2018 12:39
--- NOTE | 2018-04-01 13:10 | General Progress Note ---
Assessment/Plan Problem List: (1) Rapid atrial fibrillation ICD Codes: I48.91 - Unspecified atrial fibrillation SNOMED: 338072180 (2) Leukocytosis ICD Codes: D72.829 - Elevated white blood cell count, unspecified SNOMED: 202981134, 902568231 (3) Encephalopathy ICD Codes: G93.40 - Encephalopathy, unspecified SNOMED: 78619557 (4) Anemia ICD Codes: D64.9 - Anemia, unspecified SNOMED: 969861393 (5) CKD (chronic kidney disease) ICD Codes: N18.9 - Chronic kidney disease, unspecified SNOMED: 385551492 Assessment/Plan fu H&H ppi fu stool ob>>>positive x2 neg EGD>> possible colonoscopy for today fu cardiology Subjective ROS Limited/Unobtainable: No Allergies: Coded Allergies: MORPHINE (Verified Allergy, Unknown, 03/25/18) PENICILLINS (Verified Allergy, Unknown, 03/05/18) Objective Last 24 Hour Vital Signs Date Time Temp Pulse Resp B/P (MAP) Pulse Ox O2 Delivery O2 Flow Rate FiO2 04/01/18 12:16 86 144/81 04/01/18 12:00 98.1 86 20 144/81 (102) 100 04/01/18 08:53 87 04/01/18 08:00 97.5 87 20 141/84 (103) 98 04/01/18 08:00 Nasal Cannula 2.0 04/01/18 07:27 82 04/01/18 05:47 90 132/74 04/01/18 04:00 90 04/01/18 04:00 97.9 92 18 132/74 (93) 100 04/01/18 04:00 Nasal Cannula 2.0 04/01/18 00:54 88 120/67 04/01/18 00:00 Nasal Cannula 2.0 04/01/18 00:00 99.5 88 18 120/60 (80) 100 04/01/18 00:00 97 03/31/18 20:00 97.2 81 19 114/60 (78) 100 03/31/18 20:00 84 03/31/18 20:00 Nasal Cannula 2.0 03/31/18 17:11 86 106/67 03/31/18 16:00 97.3 86 19 106/67 (80) 99 03/31/18 16:00 Nasal Cannula 2.0 03/31/18 15:41 86 Intake and Output 03/31/18 04/01/18 19:00 07:00 Intake Total 2955 ml 3310.000 ml Output Total 350 ml Balance 2955 ml 2960.000 ml IV Total 1035 ml 1110.000 ml Other 1920 ml 2200 ml Output Urine Total 350 ml # Bowel Movements 1 5 Laboratory Tests 04/01/18 03:30: White Blood Count 7.7, Red Blood Count 3.38L, Hemoglobin 9.5L, Hematocrit 29.9L , Mean Corpuscular Volume 88, Mean Corpuscular Hemoglobin 28.0, Mean Corpuscular Hemoglobin Concent 31.7L, Red Cell Distribution Width 14.4, Platelet Count 220, Mean Platelet Volume 6.1L, Neutrophils (%) (Auto) 74.3, Lymphocytes (%) (Auto) 9.9L, Monocytes (%) (Auto) 11.0H, Eosinophils (%) (Auto) 4.0H, Basophils (%) (Auto) 0.7, Sodium Level 136, Potassium Level 3.6, Chloride Level 99, Carbon Dioxide Level 30, Anion Gap 7, Blood Urea Nitrogen 17, Creatinine 1.3, Estimat Glomerular Filtration Rate , Glucose Level 140H, Calcium Level 8.4L Height (Feet): 5 Height (Inches): 8.00 Weight (Pounds): 216 General Appearance: no apparent distress EENT: normal ENT inspection Neck: supple Cardiovascular: normal rate Respiratory/Chest: decreased breath sounds Abdomen: normal bowel sounds, non tender, soft Extremities: non-tender Olegario Barrera MD Apr 01, 2018 13:10
[2018-04-01] MEDS ORDERED: NS 500ML IVPB ONE (13:20)
--- NOTE | 2018-04-01 13:50 | Diagnostic Imaging Report ---
Indication:Elevated Bun and Creatinine. Technique: Grayscale and duplex Doppler imaging of the kidneys performed. Comparison: None Findings: In the right kidney laterally there is a rounded density measuring 3.8 cm which could be solid. The ultrasound indicates this is probably not cystic. Ultrasound was performed because of the initially abnormal CT which showed an indeterminate hypodense mass that corresponds to this lesion. 03/28/2018 CT was performed with intravenous contrast but in only one phase, not protocoled for evaluation of the mass. Would suggest repeating the CT in multiple phases to determine the enhancement characteristics as this that may alter further management. There are multiple cysts present within both kidneys of varying size. The bladder and the IVC are unremarkable. IVC is largely obscured. The kidneys are difficult to measure but likely between 14 and 15 cm. IMPRESSION: Hypoechoic approximately 3.8 cm mass in the right kidney. Solid versus complex cystic mass. CT evaluation performed 03/28/2018 was suboptimal. Recommend dynamic pre and post contrast-enhanced CT of the kidneys for further evaluation.
--- NOTE | 2018-04-01 14:33 | Endoscopy Procedure Note ---
Endoscopy Procedure Note General Indication for Procedure: gib Procedures Performed: colonoscopy Operative Findings/Diagnosis: multiple colon polyps Specimen: yes Pt Tolerated Procedure Well: Yes Estimated Blood Loss: none Anesthesia Anesthesiologist: lani Anesthesia: MAC Inserted Devices Implant(s) used?: No Quality Quality of Bowel Preparation: Fair Did scope reach the cecum?: Yes Was there any complications?: No GI Core Measures 50 yrs or older w/o bx or poly: Not Applicable 10yrs. F/U not recommended: Not Applicable Olegario Barrera MD Apr 01, 2018 14:33
--- NOTE | 2018-04-01 14:50 | Anethesia Preoperative Eval ---
Anesthesia Pre-op PMH/ROS General Date of Evaluation: Apr 01, 2018 Time of Evaluation: 12:56 Anesthesiologist: lani ASA Score: ASA 4 Mallampati Score Class I : Soft palate, uvula, fauces, pillars visible Class II: Soft palate, uvula, fauces visible Class III: Soft palate, base of uvula visible Class IV: Only hard plate visible Mallampati Classification: Class II Surgeon: rakan Diagnosis: gi bleed Surgical Procedure: colonoscopy/bx Anesthesia History: none Family History: no anesthesia problems Allergies: Coded Allergies: MORPHINE (Verified Allergy, Unknown, 03/25/18) PENICILLINS (Verified Allergy, Unknown, 03/05/18) Medications: see eMAR Patient NPO?: Yes Past Medical History Cardiovascular: Reports: HTN, arrhythmia - atrial fibrillation Pulmonary: Reports: COPD Neurologic/Psychiatric: Reports: dementia, other - parkinson's disease Anesthesia Pre-op Phys. Exam Physician Exam Last Vital Signs Date Time Temp Pulse Resp B/P (MAP) Pulse Ox O2 Delivery O2 Flow Rate FiO2 04/01/18 14:10 97.8 60 18 121/70 100 Nasal Cannula 3 Constitutional: NAD Neurologic: CN 2-12 intact Cardiovascular: RRR Respiratory: CTA Gastrointestinal: S/NT/ND Airway Exam Mallampati Score: Class II MO: limited Neck: flexible TMD: 2fb ROM: limited Anesthesia Pre-op A/P Labs Hematology Test 04/01/18 03:30 White Blood Count 7.7 K/UL (4.8-10.8) Red Blood Count 3.38 M/UL (4.70-6.10) L Hemoglobin 9.5 G/DL (14.2-18.0) L Hematocrit 29.9 % (42.0-52.0) L Mean Corpuscular Volume 88 FL (80-99) Mean Corpuscular Hemoglobin 28.0 PG (27.0-31.0) Mean Corpuscular Hemoglobin Concent 31.7 G/DL (32.0-36.0) L Red Cell Distribution Width 14.4 % (11.6-14.8) Platelet Count 220 K/UL (150-450) Mean Platelet Volume 6.1 FL (6.5-10.1) L Neutrophils (%) (Auto) 74.3 % (45.0-75.0) Lymphocytes (%) (Auto) 9.9 % (20.0-45.0) L Monocytes (%) (Auto) 11.0 % (1.0-10.0) H Eosinophils (%) (Auto) 4.0 % (0.0-3.0) H Basophils (%) (Auto) 0.7 % (0.0-2.0) Chemistry Test 04/01/18 03:30 Sodium Level 136 MMOL/L (136-145) Potassium Level 3.6 MMOL/L (3.5-5.1) Chloride Level 99 MMOL/L (98-107) Carbon Dioxide Level 30 MMOL/L (21-32) Anion Gap 7 mmol/L (5-15) Blood Urea Nitrogen 17 mg/dL (7-18) Creatinine 1.3 MG/DL (0.55-1.30) Estimat Glomerular Filtration Rate mL/min (>60) Glucose Level 140 MG/DL (74-106) H Calcium Level 8.4 MG/DL (8.5-10.1) L Risk Assessment & Plan Assessment: [email or web address] Plan: mac Status Change Before Surgery: No Pre-Antibiotics Drug: Ruthy Loera MD Apr 01, 2018 14:50
--- NOTE | 2018-04-01 14:52 | Immediate Post-Op Evaluation ---
Immediate Post-Op Evalulation Immediate Post-Op Evalulation Procedure: egd Date of Evaluation: Apr 01, 2018 Time of Evaluation: 14:17 IV Fluids: 350ml 0.9ns Blood Products: none Estimated Blood Loss: negligible Blood Pressure Systolic: 111 Blood Pressure Diastolic: 60 Pulse Rate: 71 Respiratory Rate: 18 O2 Sat by Pulse Oximetry: 100 Temperature (Fahrenheit): 97.8 Pain Score (1-10): 0 Nausea: No Vomiting: No Complications none Patient Status: awake, reacts, patent Hydration Status: adequate Drug: Ruthy Loera MD Apr 01, 2018 14:52
--- NOTE | 2018-04-01 14:54 | 48 Hour Post Anesthesia Eval ---
Post Anesthesia Evaluation Procedure: egd Date of Evaluation: Apr 01, 2018 Time of Evaluation: 14:19 Blood Pressure Systolic: 121 0: 70 Pulse Rate: 60 Respiratory Rate: 18 Temperature (Fahrenheit): 97.8 O2 Sat by Pulse Oximetry: 100 Airway: patent Nausea: No Vomiting: No Pain Intensity: 0 Hydration Status: adequate Cardiopulmonary Status: stable Mental Status/LOC: patient returned to baseline Post-Anesthesia Complications: none Follow-up care needed: N/A Ruthy Boyce MD Apr 01, 2018 14:54
[2018-04-01] MEDS ORDERED: Atropine Inj 1mg/10ml Syr IV PRN (15:00)
[2018-04-01] MEDS ORDERED: fentaNYL 100 mcg/2 mL IV PRN (15:00)
[2018-04-01] MEDS ORDERED: DiphenhydrAMINE 50mg/ml Inj IVP PRN (15:00)
--- NOTE | 2018-04-01 15:33 | Infectious Diseases Prog Note ---
Assessment/Plan Problems: (1) Healthcare-associated pneumonia Assessment & Plan: with B/L interstitial infiltrates , continue aztreonam and vancomycin empirically for 10 days . aspiration precaution , swallow eval (2) STUART (acute kidney injury) Assessment & Plan: improving continue gentle hydration , and renally dosed meds as per pharmacy (3) Trochanteric fracture of left femur Assessment & Plan: S/P ORIF, X ray no hardware failure (4) Rapid atrial fibrillation Assessment & Plan: on diltiazem , cardiology is following (5) Encephalopathy Assessment & Plan: due to the above, continue supportive care, monitor closely (6) Acute CVA (cerebrovascular accident) Assessment & Plan: already on anticoagulation for A.fib, continue neuro check (7) Renal mass, right Assessment & Plan: urology is following , might be high risk for nephrectomy Subjective Constitutional: Reports: no symptoms HEENT: Reports: no symptoms Respiratory: Reports: no symptoms Breasts: Reports: no symptoms Cardiovascular: Reports: no symptoms Gastrointestinal/Abdominal: Reports: no symptoms Genitourinary: Reports: no symptoms Neurologic: Reports: no symptoms Psychiatric: Reports: no symptoms Skin: Reports: no symptoms Endocrine: Reports: no symptoms Hematologic: Reports: no symptoms Musculoskeletal: Reports: no symptoms Allergies: Coded Allergies: MORPHINE (Verified Allergy, Unknown, 03/25/18) PENICILLINS (Verified Allergy, Unknown, 03/05/18) Subjective he is awake and responsive, but confused and incoherent , still has NGT in. afebrile Objective Vital Signs Last 24 Hour Vital Signs Date Time Temp Pulse Resp B/P (MAP) Pulse Ox O2 Delivery O2 Flow Rate FiO2 04/01/18 14:54 60 18 100 04/01/18 14:52 71 18 100 04/01/18 14:45 105 18 115/62 100 Nasal Cannula 3 04/01/18 14:30 83 18 111/69 100 Nasal Cannula 3 04/01/18 14:15 60 18 130/72 100 Nasal Cannula 3 04/01/18 14:10 97.8 60 18 121/70 100 Nasal Cannula 3 04/01/18 14:05 97.8 71 18 111/60 100 Nasal Cannula 3 04/01/18 12:16 86 144/81 04/01/18 12:00 Nasal Cannula 2.0 04/01/18 12:00 98.1 86 20 144/81 (102) 100 04/01/18 11:50 79 04/01/18 08:53 87 04/01/18 08:00 97.5 87 20 141/84 (103) 98 04/01/18 08:00 Nasal Cannula 2.0 04/01/18 07:27 82 04/01/18 05:47 90 132/74 04/01/18 04:00 90 04/01/18 04:00 97.9 92 18 132/74 (93) 100 04/01/18 04:00 Nasal Cannula 2.0 04/01/18 00:54 88 120/67 04/01/18 00:00 Nasal Cannula 2.0 04/01/18 00:00 99.5 88 18 120/60 (80) 100 04/01/18 00:00 97 03/31/18 20:00 97.2 81 19 114/60 (78) 100 03/31/18 20:00 84 03/31/18 20:00 Nasal Cannula 2.0 03/31/18 17:11 86 106/67 03/31/18 16:00 97.3 86 19 106/67 (80) 99 03/31/18 16:00 Nasal Cannula 2.0 03/31/18 15:41 86 Height (Feet): 5 Height (Inches): 8.00 Weight (Pounds): 216 General Appearance: WD/WN, no acute distress HEENT: normocephalic, atraumatic, anicteric, mucous membranes moist, PERRL Respiratory/Chest: chest wall non-tender, lungs clear, normal breath sounds, no respiratory distress, no accessory muscle use Cardiovascular: normal peripheral pulses, normal rate, regular rhythm, no gallop/murmur, no JVD Abdomen: normal bowel sounds, soft, non tender, no organomegaly, non distended , no mass, no scars Genitourinary: normal external genitalia Extremities: no cyanosis, no clubbing Skin: no rash, no lesions Neurologic/Psychiatric: alert, responsive Lymphatic: no neck adenopathy, no groin adenopathy Musculoskeletal: normal muscle bulk, no effusion Laboratory Tests Test 04/01/18 03:30 White Blood Count 7.7 K/UL (4.8-10.8) Red Blood Count 3.38 M/UL (4.70-6.10) L Hemoglobin 9.5 G/DL (14.2-18.0) L Hematocrit 29.9 % (42.0-52.0) L Mean Corpuscular Volume 88 FL (80-99) Mean Corpuscular Hemoglobin 28.0 PG (27.0-31.0) Mean Corpuscular Hemoglobin Concent 31.7 G/DL (32.0-36.0) L Red Cell Distribution Width 14.4 % (11.6-14.8) Platelet Count 220 K/UL (150-450) Mean Platelet Volume 6.1 FL (6.5-10.1) L Neutrophils (%) (Auto) 74.3 % (45.0-75.0) Lymphocytes (%) (Auto) 9.9 % (20.0-45.0) L Monocytes (%) (Auto) 11.0 % (1.0-10.0) H Eosinophils (%) (Auto) 4.0 % (0.0-3.0) H Basophils (%) (Auto) 0.7 % (0.0-2.0) Sodium Level 136 MMOL/L (136-145) Potassium Level 3.6 MMOL/L (3.5-5.1) Chloride Level 99 MMOL/L (98-107) Carbon Dioxide Level 30 MMOL/L (21-32) Anion Gap 7 mmol/L (5-15) Blood Urea Nitrogen 17 mg/dL (7-18) Creatinine 1.3 MG/DL (0.55-1.30) Estimat Glomerular Filtration Rate mL/min (>60) Glucose Level 140 MG/DL (74-106) H Calcium Level 8.4 MG/DL (8.5-10.1) L Current Medications Medications (Trade) Dose Ordered Sig/Colin Route PRN Reason Start Time Stop Time Status Last Admin Dose Admin Acetaminophen (Tylenol) 650 mg Q6H PRN ORAL Mild Pain/Temp > 100.5 03/27/18 17:00 04/24/18 16:59 Acetaminophen/ Hydrocodone Bitart ([place] 5/325) 1 tab Q6H PRN ORAL Severe Pain (Pain Scale 7-10) 03/27/18 17:00 04/01/18 16:59 Al Hydroxide/Mg Hydroxide (Mylanta) 15 ml Q1H PRN ORAL gi upset 04/01/18 15:00 04/01/18 20:00 Atorvastatin Calcium (Lipitor) 20 mg BEDTIME ORAL 03/27/18 21:00 04/24/18 20:59 03/31/18 20:16 Atropine Sulfate (Atropine) 0.5 mg Q5M PRN IV bpm less than 45 04/01/18 15:00 04/01/18 20:00 Aztreonam 2 gm/ Dextrose 110 ml @ 220 mls/hr Q8HR IVPB 03/27/18 22:00 04/01/18 23:59 04/01/18 14:55 Carbidopa/Levodopa (Sinemet 25/100) 1 tab THREE TIMES A DAY ORAL 03/27/18 18:00 04/24/18 08:59 04/01/18 12:16 Chlorhexidine Gluconate (Bonnie-Hex 2%) 1 applic DAILY@2000 TOPIC 03/29/18 20:00 04/28/18 19:59 03/31/18 20:15 Dextrose/ Electrolytes 1,000 ml @ 75 mls/hr [id number] IV 03/31/18 16:00 04/30/18 15:59 04/01/18 05:24 Digoxin (Lanoxin) 0.25 mg DAILY ORAL 03/28/18 09:00 04/25/18 08:59 04/01/18 08:53 Diltiazem HCl (Cardizem) 60 mg EVERY 6 HOURS NG 03/30/18 18:00 04/29/18 17:59 04/01/18 12:16 Diphenhydramine HCl (Benadryl) 25 mg Q15M PRN IVP Itching 04/01/18 15:00 04/01/18 20:00 Fentanyl Citrate (Sublimaze 100 mcg/2 mL) 25 mcg Q10M PRN IV Moderate Pain (Pain Scale 4-6) 04/01/18 15:00 04/01/18 20:00 Furosemide (Lasix) 40 mg DAILY IV 03/30/18 09:00 04/29/18 08:59 04/01/18 08:53 Gabapentin (Neurontin) 100 mg DAILY ORAL 03/28/18 09:00 04/24/18 08:59 04/01/18 08:53 Hydralazine HCl (Apresoline) 5 mg Q30M PRN IV SBP>160 /DBP>90 04/01/18 15:00 04/01/18 20:00 Lorazepam (Ativan 2mg/ml 1ml) 1 mg Q8H PRN IV For Anxiety 03/27/18 17:00 04/01/18 16:59 03/29/18 09:41 Ondansetron HCl (Zofran) 4 mg Q1H PRN IVP Nausea & Vomiting 04/01/18 15:00 04/01/18 20:00 Ondansetron HCl (Zofran) 4 mg Q4H PRN IVP Nausea & Vomiting 03/27/18 17:00 04/24/18 16:59 Pantoprazole (Protonix) 40 mg DAILY IVP 03/28/18 09:00 04/24/18 08:59 04/01/18 08:53 Sodium Chloride 1,000 ml @ 10 mls/hr Q24H IVLG 04/01/18 14:46 04/01/18 16:45 04/01/18 14:54 Tamsulosin HCl (Flomax) 0.4 mg BEDTIME ORAL 03/31/18 21:00 04/30/18 20:59 03/31/18 20:16 Tramadol HCl (Ultram) 50 mg Q8H PRN ORAL Moderate Pain (Pain Scale 4-6) 03/27/18 17:00 04/01/18 16:59 Vancomycin HCl (Vanco rx to dose) 1 ea DAILY PRN MISC . 03/28/18 09:00 04/26/18 09:14 Vancomycin HCl/ Dextrose 250 ml @ 166.667 mls/hr Q24H IVPB 03/31/18 00:00 04/05/18 00:00 04/01/18 00:54 Venlafaxine HCl (Effexor-XR) 37.5 mg DAILY ORAL 03/28/18 09:00 04/24/18 08:59 04/01/18 08:53 Srini Sam M.D. Apr 01, 2018 15:33
--- NOTE | 2018-04-01 16:32 | General Progress Note ---
Assessment/Plan Status: stable Assessment/Plan 1. A Fib with RVR - HR improved. on oral diltiazem and Dig. cardiology is following. He is in step down. 2. Pneumonia - ON IV Abx for total of 10 days. ID is following. Swollowing eval pending. 3. Parkinson dx - cont home med. 4. HLD - cont home med. 5. Anemia - CBC stable. cont protonix 40 mg IV daily. Stool hemocult positive x 2. EGD negative for bleeding. colonoscopy negative for bleeding except for multiple polyps. 6. Stool hemocult positive at rehab - Stool hemocult positive x 2 - colonoscopy done. Eliquis on hold. 7. Recent Hip surgery in previous admission - venous u/s of lower ext negative for DVT. CT of chest negative for PE. 8. Rt renal mass - discussed with pt's sister and urologist Dr dior saw the patient. 9. Dysphagia - NG tube in place. swallowing eval pending. Subjective Date patient seen: Apr 01, 2018 Time patient seen: 04:10 Constitutional: Reports: weakness HEENT: Reports: no symptoms Cardiovascular: Reports: no symptoms Respiratory: Reports: no symptoms Gastrointestinal/Abdominal: Reports: no symptoms Genitourinary: Reports: no symptoms Neurologic/Psychiatric: Reports: weakness Endocrine: Reports: no symptoms Hematologic/Lymphatic: Reports: no symptoms Allergies: Coded Allergies: MORPHINE (Verified Allergy, Unknown, 03/25/18) PENICILLINS (Verified Allergy, Unknown, 03/05/18) Subjective This morning he is doing well. He is afebrile. colonoscopy showed multiple polyps but no bleeding source. no sob or chest pain. Objective Last 24 Hour Vital Signs Date Time Temp Pulse Resp B/P (MAP) Pulse Ox O2 Delivery O2 Flow Rate FiO2 04/01/18 14:54 60 18 100 04/01/18 14:52 71 18 100 04/01/18 14:45 105 18 115/62 100 Nasal Cannula 3 04/01/18 14:30 83 18 111/69 100 Nasal Cannula 3 04/01/18 14:15 60 18 130/72 100 Nasal Cannula 3 04/01/18 14:10 97.8 60 18 121/70 100 Nasal Cannula 3 04/01/18 14:05 97.8 71 18 111/60 100 Nasal Cannula 3 12/10/18 12:16 86 144/81 12/10/18 12:00 Nasal Cannula 2.0 04/01/18 12:00 98.1 86 20 144/81 (102) 100 04/01/18 11:50 79 04/01/18 08:53 87 04/01/18 08:00 97.5 87 20 141/84 (103) 98 04/01/18 08:00 Nasal Cannula 2.0 04/01/18 07:27 82 04/01/18 05:47 90 132/74 04/01/18 04:00 90 04/01/18 04:00 97.9 92 18 132/74 (93) 100 04/01/18 04:00 Nasal Cannula 2.0 04/01/18 00:54 88 120/67 04/01/18 00:00 Nasal Cannula 2.0 04/01/18 00:00 99.5 88 18 120/60 (80) 100 04/01/18 00:00 97 03/31/18 20:00 97.2 81 19 114/60 (78) 100 03/31/18 20:00 84 03/31/18 20:00 Nasal Cannula 2.0 03/31/18 17:11 86 106/67 Intake and Output 03/31/18 04/01/18 19:00 07:00 Intake Total 2955 ml 3310.000 ml Output Total 350 ml Balance 2955 ml 2960.000 ml IV Total 1035 ml 1110.000 ml Other 1920 ml 2200 ml Output Urine Total 350 ml # Bowel Movements 1 5 Laboratory Tests 04/01/18 03:30: White Blood Count 7.7, Red Blood Count 3.38L, Hemoglobin 9.5L, Hematocrit 29.9L , Mean Corpuscular Volume 88, Mean Corpuscular Hemoglobin 28.0, Mean Corpuscular Hemoglobin Concent 31.7L, Red Cell Distribution Width 14.4, Platelet Count 220, Mean Platelet Volume 6.1L, Neutrophils (%) (Auto) 74.3, Lymphocytes (%) (Auto) 9.9L, Monocytes (%) (Auto) 11.0H, Eosinophils (%) (Auto) 4.0H, Basophils (%) (Auto) 0.7, Sodium Level 136, Potassium Level 3.6, Chloride Level 99, Carbon Dioxide Level 30, Anion Gap 7, Blood Urea Nitrogen 17, Creatinine 1.3, Estimat Glomerular Filtration Rate , Glucose Level 140H, Calcium Level 8.4L Height (Feet): 5 Height (Inches): 8.00 Weight (Pounds): 216 General Appearance: no apparent distress, alert EENT: normal ENT inspection Neck: non-tender, normal alignment, supple Cardiovascular: normal rate, regular rhythm Respiratory/Chest: chest wall non-tender, lungs clear, normal breath sounds Abdomen: non tender, soft Extremities: normal range of motion, non-tender Edema: no edema noted Arm (L), no edema noted Arm (R), no edema noted Leg (L), no edema noted Leg (R), no edema noted Pedal (L), no edema noted Pedal (R), no edema noted Generalized Neurologic: alert, responsive Skin: warm/dry Lymphatic: normal anterior cervical (L), normal anterior cervical (R), normal posterior cervical (L), normal posterior cervical (R), normal submandibular (L) , normal submandibular (R), normal supraclavicular (L), normal supraclavicular ( R), normal axillary (L), normal axillary (R), normal inguinal (L), normal inguinal (R), normal other Shelby Arrington MD Apr 01, 2018 16:32
--- NOTE | 2018-04-01 17:06 | Cardiac Electrophysiology PN ---
Assessment/Plan Assessment/Plan 1. Atrial fibrillation with RVR. On Cardizem 60 q 6hr and Dig 0.25 NG daily On Dig. Eliquis held for Guaiac positive stool and possible PEG placement. Echo EF Nl on 03/06/18 2. Hypertension. Cardizem and Lasix 3. Sepsis with elevated white count, on IV antibiotic. 4. Congestive heart failure due to diastolic dysfunction. BNP of more than 6000. Echocardiogram Nl EF. On Lasix 40 iv daily 5. Anemia and stool OB positive. S/P Colonoscopy 6. Parkinson disease and dementia. 7. Dysphagia. PEG pending if fails swallow eval 8. Hx of Left hip surgery and high D. Dimer. LE duplex is negative for DVT. CT angio no PE DW RN and Dr. Arrington Subjective Subjective Confused. In restraints. NG tube is in.Had Colonoscopy today.Rate is controlled Objective Last 24 Hour Vital Signs Date Time Temp Pulse Resp B/P (MAP) Pulse Ox O2 Delivery O2 Flow Rate FiO2 04/01/18 14:54 60 18 100 04/01/18 14:52 71 18 100 04/01/18 14:45 105 18 115/62 100 Nasal Cannula 3 04/01/18 14:30 83 18 111/69 100 Nasal Cannula 3 04/01/18 14:15 60 18 130/72 100 Nasal Cannula 3 04/01/18 14:10 97.8 60 18 121/70 100 Nasal Cannula 3 04/01/18 14:05 97.8 71 18 111/60 100 Nasal Cannula 3 04/01/18 12:16 86 144/81 04/01/18 12:00 Nasal Cannula 2.0 04/01/18 12:00 98.1 86 20 144/81 (102) 100 04/01/18 11:50 79 04/01/18 08:53 87 04/01/18 08:00 97.5 87 20 141/84 (103) 98 04/01/18 08:00 Nasal Cannula 2.0 04/01/18 07:27 82 04/01/18 05:47 90 132/74 04/01/18 04:00 90 04/01/18 04:00 97.9 92 18 132/74 (93) 100 04/01/18 04:00 Nasal Cannula 2.0 04/01/18 00:54 88 120/67 04/01/18 00:00 Nasal Cannula 2.0 04/01/18 00:00 99.5 88 18 120/60 (80) 100 04/01/18 00:00 97 03/31/18 20:00 97.2 81 19 114/60 (78) 100 03/31/18 20:00 84 03/31/18 20:00 Nasal Cannula 2.0 03/31/18 17:11 86 106/67 Intake and Output 03/31/18 04/01/18 18:59 06:59 Intake Total 2980 ml 3310.000 ml Output Total 350 ml Balance 2980 ml 2960.000 ml IV Total 1010 ml 1110.000 ml Tube Feeding 50 ml Other 1920 ml 2200 ml Output Urine Total 350 ml # Bowel Movements 1 5 Laboratory Tests Test 04/01/18 03:30 White Blood Count 7.7 K/UL (4.8-10.8) Red Blood Count 3.38 M/UL (4.70-6.10) L Hemoglobin 9.5 G/DL (14.2-18.0) L Hematocrit 29.9 % (42.0-52.0) L Mean Corpuscular Volume 88 FL (80-99) Mean Corpuscular Hemoglobin 28.0 PG (27.0-31.0) Mean Corpuscular Hemoglobin Concent 31.7 G/DL (32.0-36.0) L Red Cell Distribution Width 14.4 % (11.6-14.8) Platelet Count 220 K/UL (150-450) Mean Platelet Volume 6.1 FL (6.5-10.1) L Neutrophils (%) (Auto) 74.3 % (45.0-75.0) Lymphocytes (%) (Auto) 9.9 % (20.0-45.0) L Monocytes (%) (Auto) 11.0 % (1.0-10.0) H Eosinophils (%) (Auto) 4.0 % (0.0-3.0) H Basophils (%) (Auto) 0.7 % (0.0-2.0) Sodium Level 136 MMOL/L (136-145) Potassium Level 3.6 MMOL/L (3.5-5.1) Chloride Level 99 MMOL/L (98-107) Carbon Dioxide Level 30 MMOL/L (21-32) Anion Gap 7 mmol/L (5-15) Blood Urea Nitrogen 17 mg/dL (7-18) Creatinine 1.3 MG/DL (0.55-1.30) Estimat Glomerular Filtration Rate mL/min (>60) Glucose Level 140 MG/DL (74-106) H Calcium Level 8.4 MG/DL (8.5-10.1) L Objective HEENT: No JVD. NG tube is in LUNGS: Coarse rhonchi. CARDIOVASCULAR: Irregularly irregular S1 and S2 with no murmur ABDOMEN: Soft. EXTREMITIES: No pitting edema. Gary Bay MD Apr 01, 2018 17:06
[2018-04-01] MEDS: Dyna-Hex 2% Top Sol 2oz TOPIC SCH (19:53)
[2018-04-01] MEDS: Tamsulosin 0.4mg cap ORAL SCH (21:21)
[2018-04-01] MEDS: Atorvastatin 20mg tab ORAL SCH (21:21)
--- NOTE | 2018-04-01 21:30 | Procedure Note ---
DATE OF PROCEDURE: 04/01/2018 SURGEON: Olegario Barrera M.D. ANESTHESIOLOGIST: Dr. Dee. REFERRING PHYSICIAN: Shelby Arrington M.D. PROCEDURE: Colonoscopy with biopsy and polypectomy. ANESTHESIA: Per Dr. Dee. INSTRUMENT: Olympus adult flexible colonoscope. INDICATION: Stool OB positive, GI bleeding, anemia. The procedure, risks, benefits, and possible consequences, including hemorrhage, aspiration, perforation and infection, and alternative treatments, were explained to the patient/legal guardian by Dr. Olegario Barrera and the patient/legal guardian understood and accepted these risks. DESCRIPTION OF PROCEDURE: After informed consent was obtained and the patient was adequately sedated, first rectal exam was performed which was positive for large internal hemorrhoids. Then, the scope was advanced from the rectum into the cecum. Quality of prep was fair. The patient had multiple polyps in this examination. We only removed 8 of them, one of them was lost, 4 polyps in the ascending colon, 4 polyps in the transverse colon. Some of these polyps were removed with the snare polypectomy technique. They all were less than 6 mm in size. The patient most probably had a lot more polyps, but with this prep, we could not see all of them. The patient also had a large lipoma in the ascending colon. Some scattered diverticulosis throughout the colon. Retroflexion of rectum showed evidence of internal hemorrhoids. SUMMARY OF FINDINGS: 1. Multiple colonic polyps. 2. Diverticulosis. 3. Internal hemorrhoids. 4. 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 RECOMMENDATIONS: Follow up biopsy results and treat accordingly. Start tube feeding per NG-tube. The patient might benefit from PEG. We will follow closely. The patient will need repeat colonoscopy in one year most probably given this prep. There could be more polyps in the colon. I want to thank Dr. Arrington for this kind referral. Olegario Barrera M.D. DR: Sabra JOB#: [id number] CC: Shelby Arrington M.D.
[2018-04-02] VITALS: BP 117/66
[2018-04-02 04:00] VITALS: BP 131/74
[2018-04-02 05:06] LABS: BASOPHILS % (AUTO) 0.6 % (0.0-2.0); EOSINOPHILS % (AUTO) 4.1 % (0.0-3.0); HEMATOCRIT 28.8 % (42.0-52.0); HEMOGLOBIN 9.1 G/DL (14.2-18.0); LYMPHOCYTES % (AUTO) 16.4 % (20.0-45.0); MEAN CORPUSCULAR VOLUME 90 FL (80-99); MONOCYTES % (AUTO) 11.9 % (1.0-10.0); PLATELET COUNT 190 K/UL (150-450); RED CELL DISTRIBUTION WIDTH 14.5 % (11.6-14.8); WHITE BLOOD COUNT 7.2 K/UL (4.8-10.8)
[2018-04-02 05:29] LABS: ANION GAP 4 mmol/L (5-15); BLOOD UREA NITROGEN 16 mg/dL (7-18); CALCIUM 8.4 MG/DL (8.5-10.1); CARBON DIOXIDE 32 MMOL/L (21-32); CHLORIDE 99 MMOL/L (98-107); CREATININE 1.5 MG/DL (0.55-1.30); POTASSIUM 3.6 MMOL/L (3.5-5.1); SODIUM 135 MMOL/L (136-145)
[2018-04-02] MEDS: dilTIAZem HCl 60mg tab NG SCH ×3 (06:15→17:27)
[2018-04-02 08:00] VITALS: BP 126/84
[2018-04-02] MEDS: D5 1/2NS w/KCl 20mEq 1,000 ML IV SCH ×2 (08:51→22:14)
[2018-04-02] MEDS: Venlafaxine XR 37.5mg cap ORAL SCH (08:52)
[2018-04-02] MEDS: Levodopa/Carbidopa 25/100 tab ORAL SCH ×3 (08:52→17:26)
[2018-04-02] MEDS: Pantoprazole Inj IVP SCH (08:53)
--- NOTE | 2018-04-02 08:58 | General Progress Note ---
Assessment/Plan Status: stable Assessment/Plan 1. A Fib with RVR - HR controlled. on oral diltiazem and Dig. cardiology is following. May transfer to tele today. 2. Pneumonia - ON IV Abx for total of 10 days. ID is following. Swollowing eval pending for today. 3. Parkinson dx - cont home med. 4. HLD - cont home med. 5. Anemia - CBC stable. cont protonix 40 mg IV daily. Stool hemocult positive x 2. EGD negative for bleeding. colonoscopy negative for bleeding except for multiple polyps. 6. Stool hemocult positive at rehab - Stool hemocult positive x 2 - colonoscopy done. Eliquis on hold. 7. Recent Hip surgery in previous admission - venous u/s of lower ext negative for DVT. CT of chest negative for PE. 8. Rt renal mass - discussed with pt's sister and urologist Dr dior saw the patient. 9. Small acute right frontal deep white matter lacunar infarct by MRI 10. Dysphagia - NG tube in place. swallowing eval pending for today. discharge planning for tomorrow back to [facility]. Subjective Date patient seen: Apr 02, 2018 Time patient seen: 08:40 Constitutional: Reports: weakness HEENT: Reports: no symptoms Cardiovascular: Reports: no symptoms Respiratory: Reports: no symptoms Gastrointestinal/Abdominal: Reports: no symptoms Genitourinary: Reports: no symptoms Neurologic/Psychiatric: Reports: no symptoms Endocrine: Reports: no symptoms Hematologic/Lymphatic: Reports: no symptoms Allergies: Coded Allergies: MORPHINE (Verified Allergy, Unknown, 03/25/18) PENICILLINS (Verified Allergy, Unknown, 03/05/18) Subjective This morning he is doing well. He is afebrile. colonoscopy showed multiple polyps but no bleeding source. no sob or chest pain. he is having swallowing eval today. Objective Last 24 Hour Vital Signs Date Time Temp Pulse Resp B/P (MAP) Pulse Ox O2 Delivery O2 Flow Rate FiO2 04/02/18 08:52 73 04/02/18 08:00 98.6 73 20 126/84 (98) 97 04/02/18 06:15 88 117/67 04/02/18 04:00 66 04/02/18 04:00 97.7 83 16 131/74 (93) 100 04/02/18 04:00 Nasal Cannula 2.0 04/02/18 00:00 Nasal Cannula 2.0 04/02/18 00:00 97.7 85 20 117/66 (83) 100 04/02/18 00:00 79 04/01/18 23:54 85 117/66 04/01/18 20:00 Nasal Cannula 2.0 04/01/18 20:00 63 04/01/18 20:00 98.3 77 24 113/77 (89) 99 04/01/18 17:42 87 136/78 04/01/18 16:00 97.2 87 20 136/78 (97) 100 04/01/18 16:00 Nasal Cannula 2.0 04/01/18 16:00 77 04/01/18 14:54 60 18 100 04/01/18 14:52 71 18 100 04/01/18 14:45 105 18 115/62 100 Nasal Cannula 3 04/01/18 14:30 83 18 111/69 100 Nasal Cannula 3 04/01/18 14:15 60 18 130/72 100 Nasal Cannula 3 04/01/18 14:10 97.8 60 18 121/70 100 Nasal Cannula 3 04/01/18 14:05 97.8 71 18 111/60 100 Nasal Cannula 3 04/01/18 12:16 86 144/81 04/01/18 12:00 Nasal Cannula 2.0 04/01/18 12:00 98.1 86 20 144/81 (102) 100 04/01/18 11:50 79 Intake and Output 04/01/18 04/02/18 19:00 07:00 Intake Total 1155 ml 1635.0 ml Output Total 1400 ml 900 ml Balance -245 ml 735.0 ml IV Total 1035 ml 1075.0 ml Tube Feeding 120 ml 560 ml Output Urine Total 1400 ml 900 ml Laboratory Tests 04/02/18 03:25: White Blood Count 7.2, Red Blood Count 3.20L, Hemoglobin 9.1L, Hematocrit 28.8L , Mean Corpuscular Volume 90, Mean Corpuscular Hemoglobin 28.5, Mean Corpuscular Hemoglobin Concent 31.6L, Red Cell Distribution Width 14.5, Platelet Count 190, Mean Platelet Volume 6.1L, Neutrophils (%) (Auto) 67.0, Lymphocytes (%) (Auto) 16.4L, Monocytes (%) (Auto) 11.9H, Eosinophils (%) (Auto ) 4.1H, Basophils (%) (Auto) 0.6, Sodium Level 135L, Potassium Level 3.6, Chloride Level 99, Carbon Dioxide Level 32, Anion Gap 4L, Blood Urea Nitrogen 16 , Creatinine 1.5H, Estimat Glomerular Filtration Rate , Glucose Level 131H, Calcium Level 8.4L Height (Feet): 5 Height (Inches): 8.00 Weight (Pounds): 219 General Appearance: no apparent distress, alert EENT: normal ENT inspection Neck: non-tender, supple Cardiovascular: normal rate, regular rhythm Respiratory/Chest: chest wall non-tender, lungs clear, normal breath sounds Abdomen: normal bowel sounds, non tender, soft Extremities: normal range of motion, non-tender Edema: no edema noted Arm (L), no edema noted Arm (R), no edema noted Leg (L), no edema noted Leg (R), no edema noted Pedal (L), no edema noted Pedal (R), no edema noted Generalized Neurologic: alert, responsive Skin: warm/dry Lymphatic: normal anterior cervical (L), normal anterior cervical (R), normal posterior cervical (L), normal posterior cervical (R), normal submandibular (L) , normal submandibular (R), normal supraclavicular (L), normal supraclavicular ( R), normal axillary (L), normal axillary (R), normal inguinal (L), normal inguinal (R), normal other Shelby Arrington MD Apr 02, 2018 08:58
--- NOTE | 2018-04-02 09:24 | Urology Progress Note ---
Assessment/Plan Assessment/Plan 1. Renal mass which can potentially be concerning for renal cell carcinoma. 2. Renal cysts. 3. Urinary incontinence. 4. Benign prostatic hypertrophy history. 5. Probable neurogenic bladder. 6. Proteinuria. 7. Hematuria. monitor clinically flomax added dynamic CT? Subjective Allergies: Coded Allergies: MORPHINE (Verified Allergy, Unknown, 03/25/18) PENICILLINS (Verified Allergy, Unknown, 03/05/18) Subjective all noted Objective Last 24 Hour Vital Signs Date Time Temp Pulse Resp B/P (MAP) Pulse Ox O2 Delivery O2 Flow Rate FiO2 04/02/18 08:52 73 04/02/18 08:00 98.6 73 20 126/84 (98) 97 04/02/18 06:15 88 117/67 04/02/18 04:00 66 04/02/18 04:00 97.7 83 16 131/74 (93) 100 04/02/18 04:00 Nasal Cannula 2.0 04/02/18 00:00 Nasal Cannula 2.0 04/02/18 00:00 97.7 85 20 117/66 (83) 100 04/02/18 00:00 79 04/01/18 23:54 85 117/66 04/01/18 20:00 Nasal Cannula 2.0 04/01/18 20:00 63 04/01/18 20:00 98.3 77 24 113/77 (89) 99 04/01/18 17:42 87 136/78 04/01/18 16:00 97.2 87 20 136/78 (97) 100 04/01/18 16:00 Nasal Cannula 2.0 04/01/18 16:00 77 04/01/18 14:54 60 18 100 04/01/18 14:52 71 18 100 04/01/18 14:45 105 18 115/62 100 Nasal Cannula 3 04/01/18 14:30 83 18 111/69 100 Nasal Cannula 3 04/01/18 14:15 60 18 130/72 100 Nasal Cannula 3 04/01/18 14:10 97.8 60 18 121/70 100 Nasal Cannula 3 04/01/18 14:05 97.8 71 18 111/60 100 Nasal Cannula 3 04/01/18 12:16 86 144/81 04/01/18 12:00 Nasal Cannula 2.0 04/01/18 12:00 98.1 86 20 144/81 (102) 100 04/01/18 11:50 79 Intake and Output 04/01/18 04/02/18 19:00 07:00 Intake Total 1155 ml 1635.0 ml Output Total 1400 ml 900 ml Balance -245 ml 735.0 ml IV Total 1035 ml 1075.0 ml Tube Feeding 120 ml 560 ml Output Urine Total 1400 ml 900 ml Microbiology Date/Time Source Procedure Growth Status 03/24/18 21:15 Blood Blood Culture - Final NO GROWTH AFTER 5 DAYS Complete 03/28/18 17:30 Sputum Expectorated Gram Stain - Final Complete 03/28/18 17:30 Sputum Culture - Final Valentina Albicans Complete 03/24/18 21:30 Rectum - Final NO CARBAPENEM-RESISTANT ENTEROBACTERI... Complete Current Medications Medications (Trade) Dose Ordered Sig/Colin Route PRN Reason Start Time Stop Time Status Last Admin Dose Admin Acetaminophen (Tylenol) 650 mg Q6H PRN ORAL Mild Pain/Temp > 100.5 03/27/18 17:00 04/24/18 16:59 04/02/18 03:37 Atorvastatin Calcium (Lipitor) 20 mg BEDTIME ORAL 03/27/18 21:00 04/24/18 20:59 04/01/18 21:21 Carbidopa/Levodopa (Sinemet 25/100) 1 tab THREE TIMES A DAY ORAL 03/27/18 18:00 04/24/18 08:59 04/02/18 08:52 Chlorhexidine Gluconate (Bonnie-Hex 2%) 1 applic DAILY@2000 TOPIC 03/29/18 20:00 04/28/18 19:59 04/01/18 19:53 Dextrose/ Electrolytes 1,000 ml @ 75 mls/hr [id number] IV 03/31/18 16:00 04/30/18 15:59 04/02/18 08:51 Digoxin (Lanoxin) 0.25 mg DAILY ORAL 03/28/18 09:00 04/25/18 08:59 04/02/18 08:52 Diltiazem HCl (Cardizem) 60 mg EVERY 6 HOURS NG 03/30/18 18:00 04/29/18 17:59 04/02/18 06:15 Furosemide (Lasix) 40 mg DAILY IV 03/30/18 09:00 04/29/18 08:59 04/02/18 08:52 Gabapentin (Neurontin) 100 mg DAILY ORAL 03/28/18 09:00 04/24/18 08:59 04/02/18 08:52 Ondansetron HCl (Zofran) 4 mg Q4H PRN IVP Nausea & Vomiting 03/27/18 17:00 04/24/18 16:59 Pantoprazole (Protonix) 40 mg DAILY IVP 03/28/18 09:00 04/24/18 08:59 04/02/18 08:53 Tamsulosin HCl (Flomax) 0.4 mg BEDTIME ORAL 03/31/18 21:00 04/30/18 20:59 04/01/18 21:21 Vancomycin HCl (Vanco rx to dose) 1 ea DAILY PRN MISC . 03/28/18 09:00 04/26/18 09:14 Vancomycin HCl/ Dextrose 250 ml @ 166.667 mls/hr Q24H IVPB 03/31/18 00:00 04/05/18 00:00 04/01/18 23:54 Venlafaxine HCl (Effexor-XR) 37.5 mg DAILY ORAL 03/28/18 09:00 04/24/18 08:59 04/02/18 08:52 Laboratory Tests 04/02/18 03:25: White Blood Count 7.2, Red Blood Count 3.20L, Hemoglobin 9.1L, Hematocrit 28.8L , Mean Corpuscular Volume 90, Mean Corpuscular Hemoglobin 28.5, Mean Corpuscular Hemoglobin Concent 31.6L, Red Cell Distribution Width 14.5, Platelet Count 190, Mean Platelet Volume 6.1L, Neutrophils (%) (Auto) 67.0, Lymphocytes (%) (Auto) 16.4L, Monocytes (%) (Auto) 11.9H, Eosinophils (%) (Auto ) 4.1H, Basophils (%) (Auto) 0.6, Sodium Level 135L, Potassium Level 3.6, Chloride Level 99, Carbon Dioxide Level 32, Anion Gap 4L, Blood Urea Nitrogen 16 , Creatinine 1.5H, Estimat Glomerular Filtration Rate , Glucose Level 131H, Calcium Level 8.4L Height (Feet): 5 Height (Inches): 8.00 Weight (Pounds): 219 Objective exam stable renal u/s (04/01) noted David Chase MD Apr 02, 2018 09:24
--- NOTE | 2018-04-02 10:14 | Cardiac Electrophysiology PN ---
Assessment/Plan Assessment/Plan 1. Atrial fibrillation with RVR. On Cardizem 60 q 6hr and Dig 0.25 NG daily Eliquis held for Guaiac positive stool and possible PEG placement. Echo EF Nl on 03/06/18 2. Hypertension. Cardizem and Lasix 3. Sepsis with elevated white count, on IV antibiotic. 4. Congestive heart failure due to diastolic dysfunction. BNP of more than 6000. Echocardiogram Nl EF. On Lasix 40 iv daily 5. Anemia and stool OB positive. S/P Colonoscopy 6. Parkinson disease and dementia. 7. Dysphagia. PEG pending if fails swallow eval 8. Hx of Left hip surgery and high D. Dimer. LE duplex was negative for DVT and CT angio no PE DW RN Subjective Subjective Confused. In restraints. NG tube is still in.Had Colonoscopy yesterday. Rate is controlled. Swallow eval pending Objective Last 24 Hour Vital Signs Date Time Temp Pulse Resp B/P (MAP) Pulse Ox O2 Delivery O2 Flow Rate FiO2 04/02/18 08:52 73 04/02/18 08:00 Nasal Cannula 2.0 04/02/18 08:00 77 04/02/18 08:00 98.6 73 20 126/84 (98) 97 04/02/18 06:15 88 117/67 04/02/18 04:00 66 04/02/18 04:00 97.7 83 16 131/74 (93) 100 04/02/18 04:00 Nasal Cannula 2.0 04/02/18 00:00 Nasal Cannula 2.0 04/02/18 00:00 97.7 85 20 117/66 (83) 100 04/02/18 00:00 79 04/01/18 23:54 85 117/66 04/01/18 20:00 Nasal Cannula 2.0 04/01/18 20:00 63 04/01/18 20:00 98.3 77 24 113/77 (89) 99 04/01/18 17:42 87 136/78 04/01/18 16:00 97.2 87 20 136/78 (97) 100 04/01/18 16:00 Nasal Cannula 2.0 04/01/18 16:00 77 04/01/18 14:54 60 18 100 04/01/18 14:52 71 18 100 04/01/18 14:45 105 18 115/62 100 Nasal Cannula 3 04/01/18 14:30 83 18 111/69 100 Nasal Cannula 3 04/01/18 14:15 60 18 130/72 100 Nasal Cannula 3 04/01/18 14:10 97.8 60 18 121/70 100 Nasal Cannula 3 04/01/18 14:05 97.8 71 18 111/60 100 Nasal Cannula 3 04/01/18 12:16 86 144/81 04/01/18 12:00 Nasal Cannula 2.0 04/01/18 12:00 98.1 86 20 144/81 (102) 100 04/01/18 11:50 79 Intake and Output 04/01/18 04/02/18 19:00 07:00 Intake Total 1155 ml 1635.0 ml Output Total 1400 ml 900 ml Balance -245 ml 735.0 ml IV Total 1035 ml 1075.0 ml Tube Feeding 120 ml 560 ml Output Urine Total 1400 ml 900 ml Laboratory Tests Test 04/02/18 03:25 White Blood Count 7.2 K/UL (4.8-10.8) Red Blood Count 3.20 M/UL (4.70-6.10) L Hemoglobin 9.1 G/DL (14.2-18.0) L Hematocrit 28.8 % (42.0-52.0) L Mean Corpuscular Volume 90 FL (80-99) Mean Corpuscular Hemoglobin 28.5 PG (27.0-31.0) Mean Corpuscular Hemoglobin Concent 31.6 G/DL (32.0-36.0) L Red Cell Distribution Width 14.5 % (11.6-14.8) Platelet Count 190 K/UL (150-450) Mean Platelet Volume 6.1 FL (6.5-10.1) L Neutrophils (%) (Auto) 67.0 % (45.0-75.0) Lymphocytes (%) (Auto) 16.4 % (20.0-45.0) L Monocytes (%) (Auto) 11.9 % (1.0-10.0) H Eosinophils (%) (Auto) 4.1 % (0.0-3.0) H Basophils (%) (Auto) 0.6 % (0.0-2.0) Sodium Level 135 MMOL/L (136-145) L Potassium Level 3.6 MMOL/L (3.5-5.1) Chloride Level 99 MMOL/L (98-107) Carbon Dioxide Level 32 MMOL/L (21-32) Anion Gap 4 mmol/L (5-15) L Blood Urea Nitrogen 16 mg/dL (7-18) Creatinine 1.5 MG/DL (0.55-1.30) H Estimat Glomerular Filtration Rate mL/min (>60) Glucose Level 131 MG/DL (74-106) H Calcium Level 8.4 MG/DL (8.5-10.1) L Objective HEENT: No JVD. NG tube is in LUNGS: Coarse rhonchi. CARDIOVASCULAR: Irregularly irregular S1 and S2 with no murmur ABDOMEN: Soft. EXTREMITIES: No pitting edema. Gary Bay MD Apr 02, 2018 10:14
[2018-04-02 12:00] VITALS: BP 132/76
--- NOTE | 2018-04-02 12:57 | GI Progress Note ---
Assessment/Plan Problems: (1) Anemia ICD Codes: D64.9 - Anemia, unspecified SNOMED: 917130059 (2) Encephalopathy ICD Codes: G93.40 - Encephalopathy, unspecified SNOMED: 88339738 Status: progressing Status Narrative Discussed with Dr. Barrera. Assessment/Plan Head CT reviewed >> negative for bleed or mass ST evaluation reviewed OB stool positive SUMMARY OF FINDINGS: 1. Multiple colonic polyps. 2. Diverticulosis. 3. Internal hemorrhoids. 4. 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 RECOMMENDATIONS: Follow up biopsy results and treat accordingly. Start tube feeding per NG-tube. The patient might benefit from PEG, fu ST evaluation. The patient will need repeat colonoscopy in one year most probably given this prep. There could be more polyps in the colon. The patient was seen and examined at bedside and all new and available data was reviewed in the patients chart. I agree with the above findings, impression and plan. (Patient seen earlier today. Signature stamp does not reflect patient encounter time.). - Olegario Barrera MD Subjective Subjective limited Objective Last 24 Hour Vital Signs Date Time Temp Pulse Resp B/P (MAP) Pulse Ox O2 Delivery O2 Flow Rate FiO2 04/02/18 12:35 90 132/76 04/02/18 12:00 98.1 90 20 132/76 (94) 99 04/02/18 08:52 73 04/02/18 08:00 Nasal Cannula 2.0 04/02/18 08:00 77 04/02/18 08:00 98.6 73 20 126/84 (98) 97 04/02/18 06:15 88 117/67 04/02/18 04:00 66 04/02/18 04:00 97.7 83 16 131/74 (93) 100 04/02/18 04:00 Nasal Cannula 2.0 04/02/18 00:00 Nasal Cannula 2.0 04/02/18 00:00 97.7 85 20 117/66 (83) 100 04/02/18 00:00 79 04/01/18 23:54 85 117/66 04/01/18 20:00 Nasal Cannula 2.0 04/01/18 20:00 63 04/01/18 20:00 98.3 77 24 113/77 (89) 99 04/01/18 17:42 87 136/78 04/01/18 16:00 97.2 87 20 136/78 (97) 100 04/01/18 16:00 Nasal Cannula 2.0 04/01/18 16:00 77 04/01/18 14:54 60 18 100 04/01/18 14:52 71 18 100 04/01/18 14:45 105 18 115/62 100 Nasal Cannula 3 04/01/18 14:30 83 18 111/69 100 Nasal Cannula 3 04/01/18 14:15 60 18 130/72 100 Nasal Cannula 3 04/01/18 14:10 97.8 60 18 121/70 100 Nasal Cannula 3 04/01/18 14:05 97.8 71 18 111/60 100 Nasal Cannula 3 Intake and Output 04/01/18 04/02/18 19:00 07:00 Intake Total 1155 ml 1635.0 ml Output Total 1400 ml 900 ml Balance -245 ml 735.0 ml IV Total 1035 ml 1075.0 ml Tube Feeding 120 ml 560 ml Output Urine Total 1400 ml 900 ml Laboratory Tests Test 04/02/18 03:25 White Blood Count 7.2 K/UL (4.8-10.8) Red Blood Count 3.20 M/UL (4.70-6.10) L Hemoglobin 9.1 G/DL (14.2-18.0) L Hematocrit 28.8 % (42.0-52.0) L Mean Corpuscular Volume 90 FL (80-99) Mean Corpuscular Hemoglobin 28.5 PG (27.0-31.0) Mean Corpuscular Hemoglobin Concent 31.6 G/DL (32.0-36.0) L Red Cell Distribution Width 14.5 % (11.6-14.8) Platelet Count 190 K/UL (150-450) Mean Platelet Volume 6.1 FL (6.5-10.1) L Neutrophils (%) (Auto) 67.0 % (45.0-75.0) Lymphocytes (%) (Auto) 16.4 % (20.0-45.0) L Monocytes (%) (Auto) 11.9 % (1.0-10.0) H Eosinophils (%) (Auto) 4.1 % (0.0-3.0) H Basophils (%) (Auto) 0.6 % (0.0-2.0) Sodium Level 135 MMOL/L (136-145) L Potassium Level 3.6 MMOL/L (3.5-5.1) Chloride Level 99 MMOL/L (98-107) Carbon Dioxide Level 32 MMOL/L (21-32) Anion Gap 4 mmol/L (5-15) L Blood Urea Nitrogen 16 mg/dL (7-18) Creatinine 1.5 MG/DL (0.55-1.30) H Estimat Glomerular Filtration Rate mL/min (>60) Glucose Level 131 MG/DL (74-106) H Calcium Level 8.4 MG/DL (8.5-10.1) L Height (Feet): 5 Height (Inches): 8.00 Weight (Pounds): 219 General Appearance: WD/WN, no apparent distress, alert Cardiovascular: normal rate Respiratory/Chest: normal breath sounds, no respiratory distress Abdominal Exam: normal bowel sounds, non tender, soft Extremities: non-tender Kati Gabriel NP Apr 02, 2018 12:57
[2018-04-02] MEDS ORDERED: Propofol 200mg/20ml IV ONE (13:00)
[2018-04-02] MEDS ORDERED: Lidocaine 1% MPF 10mg/ml 5ml ONE (13:00)
--- NOTE | 2018-04-02 14:51 | Infectious Diseases Prog Note ---
Assessment/Plan Problems: (1) Healthcare-associated pneumonia Assessment & Plan: with B/L interstitial infiltrates , improved with aztreonam and vancomycin empirically , will stop antibiotics . continue aspiration precaution , failed vedio swallow eval, may need permanent tube feeding (2) STUART (acute kidney injury) Assessment & Plan: continue gentle hydration , and renally dosed meds as per pharmacy (3) Trochanteric fracture of left femur Assessment & Plan: S/P ORIF, X ray no hardware failure (4) Rapid atrial fibrillation Assessment & Plan: on diltiazem , cardiology is following (5) Encephalopathy Assessment & Plan: due to the above, continue supportive care, monitor closely (6) Acute CVA (cerebrovascular accident) Assessment & Plan: already on anticoagulation for A.fib, continue neuro check (7) Renal mass, right Assessment & Plan: urology is following , might be high risk for nephrectomy (8) Dysphagia causing pulmonary aspiration with swallowing Assessment & Plan: failed vedio swallow , refused permanent tube feeding Subjective Constitutional: Reports: no symptoms HEENT: Reports: no symptoms Respiratory: Reports: no symptoms Breasts: Reports: no symptoms Cardiovascular: Reports: no symptoms Gastrointestinal/Abdominal: Reports: no symptoms Genitourinary: Reports: no symptoms Neurologic: Reports: no symptoms Psychiatric: Reports: no symptoms Skin: Reports: no symptoms Endocrine: Reports: no symptoms Hematologic: Reports: no symptoms Musculoskeletal: Reports: no symptoms Allergies: Coded Allergies: MORPHINE (Verified Allergy, Unknown, 03/25/18) PENICILLINS (Verified Allergy, Unknown, 03/05/18) Subjective he is more awake and responsive, not confused , still has NGT in. afebrile , failed video swallow eval Objective Vital Signs Last 24 Hour Vital Signs Date Time Temp Pulse Resp B/P (MAP) Pulse Ox O2 Delivery O2 Flow Rate FiO2 04/02/18 12:35 90 132/76 04/02/18 12:00 91 04/02/18 12:00 Nasal Cannula 2.0 04/02/18 12:00 98.1 90 20 132/76 (94) 99 04/02/18 08:52 73 04/02/18 08:00 Nasal Cannula 2.0 04/02/18 08:00 77 04/02/18 08:00 98.6 73 20 126/84 (98) 97 04/02/18 06:15 88 117/67 04/02/18 04:00 66 04/02/18 04:00 97.7 83 16 131/74 (93) 100 04/02/18 04:00 Nasal Cannula 2.0 04/02/18 00:00 Nasal Cannula 2.0 04/02/18 00:00 97.7 85 20 117/66 (83) 100 04/02/18 00:00 79 04/01/18 23:54 85 117/66 04/01/18 20:00 Nasal Cannula 2.0 04/01/18 20:00 63 04/01/18 20:00 98.3 77 24 113/77 (89) 99 04/01/18 17:42 87 136/78 04/01/18 16:00 97.2 87 20 136/78 (97) 100 04/01/18 16:00 Nasal Cannula 2.0 04/01/18 16:00 77 04/01/18 14:54 60 18 100 04/01/18 14:52 71 18 100 Height (Feet): 5 Height (Inches): 8.00 Weight (Pounds): 219 General Appearance: WD/WN, no acute distress HEENT: normocephalic, atraumatic, anicteric, mucous membranes moist, PERRL Respiratory/Chest: chest wall non-tender, lungs clear, normal breath sounds, no respiratory distress, no accessory muscle use, decreased breath sounds Cardiovascular: normal peripheral pulses, normal rate, regular rhythm, no gallop/murmur, no JVD Abdomen: normal bowel sounds, soft, non tender, no organomegaly, non distended , no mass, no scars Extremities: no cyanosis, no clubbing Skin: no rash, no lesions, no ulcers Neurologic/Psychiatric: alert, responsive Lymphatic: no neck adenopathy, no groin adenopathy Musculoskeletal: normal muscle bulk, no effusion Laboratory Tests Test 04/02/18 03:25 White Blood Count 7.2 K/UL (4.8-10.8) Red Blood Count 3.20 M/UL (4.70-6.10) L Hemoglobin 9.1 G/DL (14.2-18.0) L Hematocrit 28.8 % (42.0-52.0) L Mean Corpuscular Volume 90 FL (80-99) Mean Corpuscular Hemoglobin 28.5 PG (27.0-31.0) Mean Corpuscular Hemoglobin Concent 31.6 G/DL (32.0-36.0) L Red Cell Distribution Width 14.5 % (11.6-14.8) Platelet Count 190 K/UL (150-450) Mean Platelet Volume 6.1 FL (6.5-10.1) L Neutrophils (%) (Auto) 67.0 % (45.0-75.0) Lymphocytes (%) (Auto) 16.4 % (20.0-45.0) L Monocytes (%) (Auto) 11.9 % (1.0-10.0) H Eosinophils (%) (Auto) 4.1 % (0.0-3.0) H Basophils (%) (Auto) 0.6 % (0.0-2.0) Sodium Level 135 MMOL/L (136-145) L Potassium Level 3.6 MMOL/L (3.5-5.1) Chloride Level 99 MMOL/L (98-107) Carbon Dioxide Level 32 MMOL/L (21-32) Anion Gap 4 mmol/L (5-15) L Blood Urea Nitrogen 16 mg/dL (7-18) Creatinine 1.5 MG/DL (0.55-1.30) H Estimat Glomerular Filtration Rate mL/min (>60) Glucose Level 131 MG/DL (74-106) H Calcium Level 8.4 MG/DL (8.5-10.1) L Current Medications Medications (Trade) Dose Ordered Sig/Colin Route PRN Reason Start Time Stop Time Status Last Admin Dose Admin Acetaminophen (Tylenol) 650 mg Q6H PRN ORAL Mild Pain/Temp > 100.5 03/27/18 17:00 04/24/18 16:59 04/02/18 03:37 Atorvastatin Calcium (Lipitor) 20 mg BEDTIME ORAL 03/27/18 21:00 04/24/18 20:59 04/01/18 21:21 Carbidopa/Levodopa (Sinemet 25/100) 1 tab THREE TIMES A DAY ORAL 03/27/18 18:00 04/24/18 08:59 04/02/18 12:35 Chlorhexidine Gluconate (Bonnie-Hex 2%) 1 applic DAILY@1999 TOPIC 03/29/18 20:00 04/28/18 19:59 04/01/18 19:53 Dextrose/ Electrolytes 1,000 ml @ 75 mls/hr [id number] IV 03/31/18 16:00 04/30/18 15:59 04/02/18 08:51 Digoxin (Lanoxin) 0.25 mg DAILY ORAL 03/28/18 09:00 04/25/18 08:59 04/02/18 08:52 Diltiazem HCl (Cardizem) 60 mg EVERY 6 HOURS NG 03/30/18 18:00 04/29/18 17:59 04/02/18 12:35 Furosemide (Lasix) 40 mg DAILY IV 03/30/18 09:00 04/29/18 08:59 04/02/18 08:52 Gabapentin (Neurontin) 100 mg DAILY ORAL 03/28/18 09:00 04/24/18 08:59 04/02/18 08:52 Ondansetron HCl (Zofran) 4 mg Q4H PRN IVP Nausea & Vomiting 03/27/18 17:00 04/24/18 16:59 Pantoprazole (Protonix) 40 mg DAILY IVP 03/28/18 09:00 04/24/18 08:59 04/02/18 08:53 Tamsulosin HCl (Flomax) 0.4 mg BEDTIME ORAL 03/31/18 21:00 04/30/18 20:59 04/01/18 21:21 Venlafaxine HCl (Effexor-XR) 37.5 mg DAILY ORAL 03/28/18 09:00 04/24/18 08:59 04/02/18 08:52 Srini Sam M.D. Apr 02, 2018 14:51
[2018-04-02 16:00] VITALS: BP 120/81
[2018-04-02 20:00] VITALS: BP 112/64
[2018-04-02] MEDS: Atorvastatin 20mg tab ORAL SCH (20:50)
[2018-04-02] MEDS: Dyna-Hex 2% Top Sol 2oz TOPIC SCH (20:50)
[2018-04-02] MEDS: Tamsulosin 0.4mg cap ORAL SCH (20:50)
[2018-04-03] VITALS: BP 115/66
[2018-04-03] MEDS: dilTIAZem HCl 60mg tab NG SCH ×4 (00:57→18:00)
[2018-04-03 04:00] VITALS: BP 121/61
[2018-04-03 04:26] LABS: BASOPHILS % (AUTO) 0.6 % (0.0-2.0); EOSINOPHILS % (AUTO) 3.3 % (0.0-3.0); HEMATOCRIT 28.2 % (42.0-52.0); HEMOGLOBIN 8.8 G/DL (14.2-18.0); LYMPHOCYTES % (AUTO) 17.3 % (20.0-45.0); MEAN CORPUSCULAR VOLUME 89 FL (80-99); MONOCYTES % (AUTO) 11.6 % (1.0-10.0); NEUTROPHILS % (AUTO) 67.1 % (45.0-75.0); PLATELET COUNT 162 K/UL (150-450); RED BLOOD COUNT 3.16 M/UL (4.70-6.10); RED CELL DISTRIBUTION WIDTH 14.5 % (11.6-14.8); WHITE BLOOD COUNT 6.7 K/UL (4.8-10.8)
[2018-04-03 04:36] LABS: ANION GAP 5 mmol/L (5-15); BLOOD UREA NITROGEN 18 mg/dL (7-18); CALCIUM 8.4 MG/DL (8.5-10.1); CARBON DIOXIDE 32 MMOL/L (21-32); CHLORIDE 99 MMOL/L (98-107); CREATININE 1.5 MG/DL (0.55-1.30); POTASSIUM 3.8 MMOL/L (3.5-5.1); SODIUM 136 MMOL/L (136-145)
--- NOTE | 2018-04-03 07:20 | Urology Progress Note ---
Assessment/Plan Assessment/Plan 1. Renal mass which can potentially be concerning for renal cell carcinoma. 2. Renal cysts. 3. Urinary incontinence. 4. Benign prostatic hypertrophy history. 5. Probable neurogenic bladder. 6. Proteinuria. 7. Hematuria. 8. Mild STUART. monitor clinically flomax added dynamic CT? monitor renal fxn Subjective Allergies: Coded Allergies: MORPHINE (Verified Allergy, Unknown, 03/25/18) PENICILLINS (Verified Allergy, Unknown, 03/05/18) Subjective all noted Objective Last 24 Hour Vital Signs Date Time Temp Pulse Resp B/P (MAP) Pulse Ox O2 Delivery O2 Flow Rate FiO2 04/03/18 05:04 84 121/61 04/03/18 04:00 Nasal Cannula 2.0 04/03/18 04:00 97.7 84 18 121/61 (81) 99 04/03/18 04:00 79 04/03/18 00:57 82 115/66 04/03/18 00:00 78 04/03/18 00:00 97.7 82 18 115/66 (82) 97 04/03/18 00:00 Nasal Cannula 2.0 04/02/18 20:00 Nasal Cannula 2.0 04/02/18 20:00 98.1 78 18 112/64 (80) 99 04/02/18 20:00 72 04/02/18 17:27 75 120/81 04/02/18 16:00 75 04/02/18 16:00 Nasal Cannula 2.0 04/02/18 16:00 98.1 84 18 120/81 (94) 99 04/02/18 12:35 90 132/76 04/02/18 12:00 91 04/02/18 12:00 Nasal Cannula 2.0 04/02/18 12:00 98.1 90 20 132/76 (94) 99 04/02/18 08:52 73 04/02/18 08:00 Nasal Cannula 2.0 04/02/18 08:00 77 04/02/18 08:00 98.6 73 20 126/84 (98) 97 Intake and Output 04/02/18 04/03/18 19:00 07:00 Intake Total 1396.25 ml 1370 ml Output Total 1900 ml Balance -503.75 ml 1370 ml Intake Free Water 50 ml 20 ml IV Total 686.25 ml 750 ml Tube Feeding 660 ml 600 ml Output Urine Total 1900 ml Microbiology Date/Time Source Procedure Growth Status 03/24/18 21:15 Blood Blood Culture - Final NO GROWTH AFTER 5 DAYS Complete 03/28/18 17:30 Sputum Expectorated Gram Stain - Final Complete 03/28/18 17:30 Sputum Culture - Final Valentina Albicans Complete 03/24/18 21:30 Rectum - Final NO CARBAPENEM-RESISTANT ENTEROBACTERI... Complete Current Medications Medications (Trade) Dose Ordered Sig/Colin Route PRN Reason Start Time Stop Time Status Last Admin Dose Admin Acetaminophen (Tylenol) 650 mg Q6H PRN ORAL Mild Pain/Temp > 100.5 03/27/18 17:00 04/24/18 16:59 04/03/18 05:05 Atorvastatin Calcium (Lipitor) 20 mg BEDTIME ORAL 03/27/18 21:00 04/24/18 20:59 04/02/18 20:50 Carbidopa/Levodopa (Sinemet 25/100) 1 tab THREE TIMES A DAY ORAL 03/27/18 18:00 04/24/18 08:59 04/02/18 17:26 Chlorhexidine Gluconate (Bonnie-Hex 2%) 1 applic DAILY@2000 TOPIC 03/29/18 20:00 04/28/18 19:59 04/02/18 20:50 Dextrose/ Electrolytes 1,000 ml @ 75 mls/hr [id number] IV 03/31/18 16:00 04/30/18 15:59 04/02/18 22:14 Digoxin (Lanoxin) 0.25 mg DAILY ORAL 03/28/18 09:00 04/25/18 08:59 04/02/18 08:52 Diltiazem HCl (Cardizem) 60 mg EVERY 6 HOURS NG 03/30/18 18:00 04/29/18 17:59 04/03/18 05:04 Furosemide (Lasix) 40 mg DAILY IV 03/30/18 09:00 04/29/18 08:59 04/02/18 08:52 Gabapentin (Neurontin) 100 mg DAILY ORAL 03/28/18 09:00 04/24/18 08:59 04/02/18 08:52 Ondansetron HCl (Zofran) 4 mg Q4H PRN IVP Nausea & Vomiting 03/27/18 17:00 04/24/18 16:59 Pantoprazole (Protonix) 40 mg DAILY IVP 03/28/18 09:00 04/24/18 08:59 04/02/18 08:53 Tamsulosin HCl (Flomax) 0.4 mg BEDTIME ORAL 03/31/18 21:00 04/30/18 20:59 04/02/18 20:50 Venlafaxine HCl (Effexor-XR) 37.5 mg DAILY ORAL 03/28/18 09:00 04/24/18 08:59 04/02/18 08:52 Laboratory Tests 04/03/18 04:00: White Blood Count 6.7, Red Blood Count 3.16L, Hemoglobin 8.8L, Hematocrit 28.2L , Mean Corpuscular Volume 89, Mean Corpuscular Hemoglobin 27.9, Mean Corpuscular Hemoglobin Concent 31.2L, Red Cell Distribution Width 14.5, Platelet Count 162, Mean Platelet Volume 6.2L, Neutrophils (%) (Auto) 67.1, Lymphocytes (%) (Auto) 17.3L, Monocytes (%) (Auto) 11.6H, Eosinophils (%) (Auto ) 3.3H, Basophils (%) (Auto) 0.6, Sodium Level 136, Potassium Level 3.8, Chloride Level 99, Carbon Dioxide Level 32, Anion Gap 5, Blood Urea Nitrogen 18 , Creatinine 1.5H, Estimat Glomerular Filtration Rate , Glucose Level 142H, Calcium Level 8.4L Height (Feet): 5 Height (Inches): 8.00 Weight (Pounds): 231 Objective exam stable renal u/s (04/01) noted David Chase MD Apr 03, 2018 07:19
[2018-04-03 08:00] VITALS: BP 122/84
[2018-04-03] MEDS: Pantoprazole Inj IVP SCH (08:52)
[2018-04-03] MEDS: Levodopa/Carbidopa 25/100 tab ORAL SCH ×4 (08:53→18:10)
[2018-04-03] MEDS: Venlafaxine XR 37.5mg cap ORAL SCH (08:53)
[2018-04-03] MEDS: D5 1/2NS w/KCl 20mEq 1,000 ML IV SCH (11:07)
--- NOTE | 2018-04-03 11:55 | Cardiac Electrophysiology PN ---
Assessment/Plan Assessment/Plan 1. Atrial fibrillation with RVR. On Cardizem 60 q 6hr and Dig 0.25 NG daily Eliquis held for Guaiac positive stool and possible PEG placement. Echo EF Nl on 03/06/18 2. Hypertension. Cardizem and Lasix 3. Sepsis with elevated white count, on IV antibiotic. 4. Congestive heart failure due to diastolic dysfunction. BNP of more than 6000. Echocardiogram Nl EF. On Lasix 40 iv daily 5. Anemia and stool OB positive. S/P Colonoscopy 6. Parkinson disease and dementia. 7. Dysphagia. Patient refused PEG. 8. Hx of Left hip surgery and high D. Dimer. LE duplex was negative for DVT and CT angio no PE DW RN Subjective Subjective More alert off restraints. Pulled out NG tube. Rate is controlled. Swallow eval high risk of aspiration. But patient refusing PEG Objective Last 24 Hour Vital Signs Date Time Temp Pulse Resp B/P (MAP) Pulse Ox O2 Delivery O2 Flow Rate FiO2 04/03/18 08:53 76 04/03/18 08:00 Nasal Cannula 2.0 04/03/18 08:00 97.7 76 20 122/84 (97) 99 04/03/18 08:00 74 04/03/18 05:04 84 121/61 04/03/18 04:00 Nasal Cannula 2.0 04/03/18 04:00 97.7 84 18 121/61 (81) 99 04/03/18 04:00 79 04/03/18 00:57 82 115/66 04/03/18 00:00 78 04/03/18 00:00 97.7 82 18 115/66 (82) 97 04/03/18 00:00 Nasal Cannula 2.0 04/02/18 20:00 Nasal Cannula 2.0 04/02/18 20:00 98.1 78 18 112/64 (80) 99 04/02/18 20:00 72 04/02/18 17:27 75 120/81 04/02/18 16:00 75 04/02/18 16:00 Nasal Cannula 2.0 04/02/18 16:00 98.1 84 18 120/81 (94) 99 04/02/18 12:35 90 132/76 04/02/18 12:00 91 04/02/18 12:00 Nasal Cannula 2.0 04/02/18 12:00 98.1 90 20 132/76 (94) 99 Intake and Output 04/02/18 04/03/18 19:00 07:00 Intake Total 1396.25 ml 1445 ml Output Total 1900 ml Balance -503.75 ml 1445 ml Intake Free Water 50 ml 20 ml IV Total 686.25 ml 825 ml Tube Feeding 660 ml 600 ml Output Urine Total 1900 ml Laboratory Tests Test 04/03/18 04:00 White Blood Count 6.7 K/UL (4.8-10.8) Red Blood Count 3.16 M/UL (4.70-6.10) L Hemoglobin 8.8 G/DL (14.2-18.0) L Hematocrit 28.2 % (42.0-52.0) L Mean Corpuscular Volume 89 FL (80-99) Mean Corpuscular Hemoglobin 27.9 PG (27.0-31.0) Mean Corpuscular Hemoglobin Concent 31.2 G/DL (32.0-36.0) L Red Cell Distribution Width 14.5 % (11.6-14.8) Platelet Count 162 K/UL (150-450) Mean Platelet Volume 6.2 FL (6.5-10.1) L Neutrophils (%) (Auto) 67.1 % (45.0-75.0) Lymphocytes (%) (Auto) 17.3 % (20.0-45.0) L Monocytes (%) (Auto) 11.6 % (1.0-10.0) H Eosinophils (%) (Auto) 3.3 % (0.0-3.0) H Basophils (%) (Auto) 0.6 % (0.0-2.0) Sodium Level 136 MMOL/L (136-145) Potassium Level 3.8 MMOL/L (3.5-5.1) Chloride Level 99 MMOL/L (98-107) Carbon Dioxide Level 32 MMOL/L (21-32) Anion Gap 5 mmol/L (5-15) Blood Urea Nitrogen 18 mg/dL (7-18) Creatinine 1.5 MG/DL (0.55-1.30) H Estimat Glomerular Filtration Rate mL/min (>60) Glucose Level 142 MG/DL (74-106) H Calcium Level 8.4 MG/DL (8.5-10.1) L Objective HEENT: No JVD. LUNGS: Coarse rhonchi. CARDIOVASCULAR: Irregularly irregular S1 and S2 with no murmur ABDOMEN: Soft. EXTREMITIES: No pitting edema. Gary Bay MD Apr 03, 2018 11:55
[2018-04-03 12:00] VITALS: BP 123/69
--- NOTE | 2018-04-03 12:15 | GI Progress Note ---
Assessment/Plan Problems: (1) Anemia ICD Codes: D64.9 - Anemia, unspecified SNOMED: 775811355 (2) Encephalopathy ICD Codes: G93.40 - Encephalopathy, unspecified SNOMED: 15321097 Status: stable Status Narrative Discussed with Dr. Barrera. Assessment/Plan Head CT reviewed >> negative for bleed or mass ST evaluation reviewed OB stool positive refused PEG SUMMARY OF FINDINGS: 1. Multiple colonic polyps. 2. Diverticulosis. 3. Internal hemorrhoids. 4. 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 RECOMMENDATIONS: adv diet per ST as tolerated strict aspiration precautions 1:1 feeder prn transfusions ppi repeat colonoscopy x1 year The patient was seen and examined at bedside and all new and available data was reviewed in the patients chart. I agree with the above findings, impression and plan. (Patient seen earlier today. Signature stamp does not reflect patient encounter time.). - Olegario Barrera MD Subjective Subjective tolerating diet refused PEG Objective Last 24 Hour Vital Signs Date Time Temp Pulse Resp B/P (MAP) Pulse Ox O2 Delivery O2 Flow Rate FiO2 04/03/18 08:53 76 04/03/18 08:00 Nasal Cannula 2.0 04/03/18 08:00 97.7 76 20 122/84 (97) 99 04/03/18 08:00 74 04/03/18 05:04 84 121/61 04/03/18 04:00 Nasal Cannula 2.0 04/03/18 04:00 97.7 84 18 121/61 (81) 99 04/03/18 04:00 79 04/03/18 00:57 82 115/66 04/03/18 00:00 78 04/03/18 00:00 97.7 82 18 115/66 (82) 97 04/03/18 00:00 Nasal Cannula 2.0 04/02/18 20:00 Nasal Cannula 2.0 04/02/18 20:00 98.1 78 18 112/64 (80) 99 04/02/18 20:00 72 04/02/18 17:27 75 120/81 04/02/18 16:00 75 04/02/18 16:00 Nasal Cannula 2.0 04/02/18 16:00 98.1 84 18 120/81 (94) 99 04/02/18 12:35 90 132/76 Intake and Output 04/02/18 04/03/18 19:00 07:00 Intake Total 1396.25 ml 1445 ml Output Total 1900 ml Balance -503.75 ml 1445 ml Intake Free Water 50 ml 20 ml IV Total 686.25 ml 825 ml Tube Feeding 660 ml 600 ml Output Urine Total 1900 ml Laboratory Tests Test 04/03/18 04:00 White Blood Count 6.7 K/UL (4.8-10.8) Red Blood Count 3.16 M/UL (4.70-6.10) L Hemoglobin 8.8 G/DL (14.2-18.0) L Hematocrit 28.2 % (42.0-52.0) L Mean Corpuscular Volume 89 FL (80-99) Mean Corpuscular Hemoglobin 27.9 PG (27.0-31.0) Mean Corpuscular Hemoglobin Concent 31.2 G/DL (32.0-36.0) L Red Cell Distribution Width 14.5 % (11.6-14.8) Platelet Count 162 K/UL (150-450) Mean Platelet Volume 6.2 FL (6.5-10.1) L Neutrophils (%) (Auto) 67.1 % (45.0-75.0) Lymphocytes (%) (Auto) 17.3 % (20.0-45.0) L Monocytes (%) (Auto) 11.6 % (1.0-10.0) H Eosinophils (%) (Auto) 3.3 % (0.0-3.0) H Basophils (%) (Auto) 0.6 % (0.0-2.0) Sodium Level 136 MMOL/L (136-145) Potassium Level 3.8 MMOL/L (3.5-5.1) Chloride Level 99 MMOL/L (98-107) Carbon Dioxide Level 32 MMOL/L (21-32) Anion Gap 5 mmol/L (5-15) Blood Urea Nitrogen 18 mg/dL (7-18) Creatinine 1.5 MG/DL (0.55-1.30) H Estimat Glomerular Filtration Rate mL/min (>60) Glucose Level 142 MG/DL (74-106) H Calcium Level 8.4 MG/DL (8.5-10.1) L Height (Feet): 5 Height (Inches): 8.00 Weight (Pounds): 231 General Appearance: WD/WN, no apparent distress, alert Cardiovascular: normal rate Respiratory/Chest: normal breath sounds, no respiratory distress Abdominal Exam: normal bowel sounds, non tender, soft Extremities: non-tender Kati Gabriel NP Apr 03, 2018 12:15
--- NOTE | 2018-04-03 13:05 | Infectious Diseases Prog Note ---
Assessment/Plan Problems: (1) Healthcare-associated pneumonia Assessment & Plan: with B/L interstitial infiltrates , improved with aztreonam and vancomycin empirically , will monitor off antibiotics. continue aspiration precaution , failed vedio swallow eval, may need permanent tube feeding (2) STUART (acute kidney injury) Assessment & Plan: continue gentle hydration , and renally dosed meds as per pharmacy (3) Trochanteric fracture of left femur Assessment & Plan: S/P ORIF, X ray no hardware failure (4) Rapid atrial fibrillation Assessment & Plan: on diltiazem , cardiology is following (5) Encephalopathy Assessment & Plan: due to the above, continue supportive care, monitor closely (6) Acute CVA (cerebrovascular accident) Assessment & Plan: already on anticoagulation for A.fib, continue neuro check (7) Renal mass, right Assessment & Plan: urology is following , might be high risk for nephrectomy (8) Dysphagia causing pulmonary aspiration with swallowing Assessment & Plan: failed vedio swallow , refused permanent tube feeding Subjective Constitutional: Reports: no symptoms HEENT: Reports: no symptoms Respiratory: Reports: no symptoms Breasts: Reports: no symptoms Cardiovascular: Reports: no symptoms Gastrointestinal/Abdominal: Reports: no symptoms Genitourinary: Reports: no symptoms Neurologic: Reports: no symptoms Psychiatric: Reports: no symptoms Skin: Reports: no symptoms Endocrine: Reports: no symptoms Hematologic: Reports: no symptoms Musculoskeletal: Reports: no symptoms Allergies: Coded Allergies: MORPHINE (Verified Allergy, Unknown, 03/25/18) PENICILLINS (Verified Allergy, Unknown, 03/05/18) Subjective he is more awake and responsive, not confused , still has NGT in. afebrile , failed video swallow eval Objective Vital Signs Last 24 Hour Vital Signs Date Time Temp Pulse Resp B/P (MAP) Pulse Ox O2 Delivery O2 Flow Rate FiO2 04/03/18 12:00 Nasal Cannula 2.0 04/03/18 12:00 98.1 85 20 123/69 (87) 97 04/03/18 12:00 96 04/03/18 08:53 76 04/03/18 08:00 Nasal Cannula 2.0 04/03/18 08:00 97.7 76 20 122/84 (97) 99 04/03/18 08:00 74 04/03/18 05:04 84 121/61 04/03/18 04:00 Nasal Cannula 2.0 04/03/18 04:00 97.7 84 18 121/61 (81) 99 04/03/18 04:00 79 04/03/18 00:57 82 115/66 04/03/18 00:00 78 04/03/18 00:00 97.7 82 18 115/66 (82) 97 04/03/18 00:00 Nasal Cannula 2.0 04/02/18 20:00 Nasal Cannula 2.0 04/02/18 20:00 98.1 78 18 112/64 (80) 99 04/02/18 20:00 72 04/02/18 17:27 75 120/81 04/02/18 16:00 75 04/02/18 16:00 Nasal Cannula 2.0 04/02/18 16:00 98.1 84 18 120/81 (94) 99 Height (Feet): 5 Height (Inches): 8.00 Weight (Pounds): 231 General Appearance: WD/WN, no acute distress HEENT: normocephalic, atraumatic, anicteric, mucous membranes moist, PERRL Respiratory/Chest: chest wall non-tender, lungs clear, normal breath sounds, no respiratory distress, no accessory muscle use, respiratory distress Cardiovascular: normal peripheral pulses, normal rate, regular rhythm, no gallop/murmur, no JVD Abdomen: normal bowel sounds, soft, non tender, no organomegaly, non distended , no mass, no scars Genitourinary: normal external genitalia Extremities: no cyanosis, no clubbing Skin: no rash, no lesions, no ulcers Neurologic/Psychiatric: alert, responsive Lymphatic: no neck adenopathy, no groin adenopathy Musculoskeletal: normal muscle bulk, no effusion Laboratory Tests Test 04/03/18 04:00 White Blood Count 6.7 K/UL (4.8-10.8) Red Blood Count 3.16 M/UL (4.70-6.10) L Hemoglobin 8.8 G/DL (14.2-18.0) L Hematocrit 28.2 % (42.0-52.0) L Mean Corpuscular Volume 89 FL (80-99) Mean Corpuscular Hemoglobin 27.9 PG (27.0-31.0) Mean Corpuscular Hemoglobin Concent 31.2 G/DL (32.0-36.0) L Red Cell Distribution Width 14.5 % (11.6-14.8) Platelet Count 162 K/UL (150-450) Mean Platelet Volume 6.2 FL (6.5-10.1) L Neutrophils (%) (Auto) 67.1 % (45.0-75.0) Lymphocytes (%) (Auto) 17.3 % (20.0-45.0) L Monocytes (%) (Auto) 11.6 % (1.0-10.0) H Eosinophils (%) (Auto) 3.3 % (0.0-3.0) H Basophils (%) (Auto) 0.6 % (0.0-2.0) Sodium Level 136 MMOL/L (136-145) Potassium Level 3.8 MMOL/L (3.5-5.1) Chloride Level 99 MMOL/L (98-107) Carbon Dioxide Level 32 MMOL/L (21-32) Anion Gap 5 mmol/L (5-15) Blood Urea Nitrogen 18 mg/dL (7-18) Creatinine 1.5 MG/DL (0.55-1.30) H Estimat Glomerular Filtration Rate mL/min (>60) Glucose Level 142 MG/DL (74-106) H Calcium Level 8.4 MG/DL (8.5-10.1) L Current Medications Medications (Trade) Dose Ordered Sig/Colin Route PRN Reason Start Time Stop Time Status Last Admin Dose Admin Acetaminophen (Tylenol) 650 mg Q6H PRN ORAL Mild Pain/Temp > 100.5 03/27/18 17:00 04/24/18 16:59 04/03/18 05:05 Atorvastatin Calcium (Lipitor) 20 mg BEDTIME ORAL 03/27/18 21:00 04/24/18 20:59 04/02/18 20:50 Carbidopa/Levodopa (Sinemet 25/100) 1 tab THREE TIMES A DAY ORAL 03/27/18 18:00 04/24/18 08:59 04/03/18 08:53 Chlorhexidine Gluconate (Bonnie-Hex 2%) 1 applic DAILY@2000 TOPIC 03/29/18 20:00 04/28/18 19:59 04/02/18 20:50 Dextrose/ Electrolytes 1,000 ml @ 75 mls/hr [id number] IV 03/31/18 16:00 1/8/19 15:59 04/03/18 11:07 Digoxin (Lanoxin) 0.25 mg DAILY ORAL 03/28/18 09:00 04/25/18 08:59 04/03/18 08:53 Diltiazem HCl (Cardizem) 60 mg EVERY 6 HOURS NG 03/30/18 18:00 04/29/18 17:59 04/03/18 05:04 Furosemide (Lasix) 40 mg DAILY IV 03/30/18 09:00 04/29/18 08:59 04/03/18 08:52 Gabapentin (Neurontin) 100 mg DAILY ORAL 03/28/18 09:00 04/24/18 08:59 04/03/18 08:52 Ondansetron HCl (Zofran) 4 mg Q4H PRN IVP Nausea & Vomiting 03/27/18 17:00 04/24/18 16:59 Pantoprazole (Protonix) 40 mg DAILY IVP 03/28/18 09:00 04/24/18 08:59 04/03/18 08:52 Tamsulosin HCl (Flomax) 0.4 mg BEDTIME ORAL 03/31/18 21:00 04/30/18 20:59 04/02/18 20:50 Venlafaxine HCl (Effexor-XR) 37.5 mg DAILY ORAL 03/28/18 09:00 04/24/18 08:59 04/03/18 08:53 Srini Sam M.D. Apr 03, 2018 13:05
[2018-04-03] MEDS ORDERED: LORazepam Inj 2mg/ml 1ml IV SCH (13:15)
[2018-04-03 16:00] VITALS: BP 113/76
[2018-04-03] MEDS ORDERED: FLOMAX0.4 MG ORAL (16:38)
[2018-04-03] MEDS ORDERED: GABAPENTIN100 MG ORAL (16:38)
[2018-04-03] MEDS ORDERED: CARDIZEM60 MG NG (16:38)
[2018-04-03] MEDS ORDERED: DEMADEX10 MG PO (16:38)
[2018-04-03] MEDS ORDERED: ZOFRAN 4 MG4 MG/2 ML PO (16:38)
[2018-04-03] MEDS ORDERED: PROTONIX40 M1 PO (16:38)
[2018-04-03] MEDS ORDERED: LANOXIN250 MCG ORAL (16:38)
--- NOTE | 2018-04-03 16:49 | General Progress Note ---
Assessment/Plan Status: stable Assessment/Plan 1. A Fib with RVR - HR controlled and stable. on oral diltiazem and Dig. will transfer to [facility] today. 2. Asp. Pneumonia - resolved. finished IV abx. 3. Parkinson dx - cont home med. 4. HLD - cont home med. 5. Anemia - CBC stable. cont protonix 40 mg IV daily. EGD and colonoscopy negative for bleeding. 6. Stool hemocult positive at rehab - Stool hemocult positive x 2 - colonoscopy done. Eliquis on hold. 7. Recent Hip surgery in previous admission - venous u/s of lower ext negative for DVT. CT of chest negative for PE. 8. Rt renal mass - will follow up as outpatient. Pt's sister refused consideration of nephrectomy. 9. Small acute right frontal deep white matter lacunar infarct by MRI 10. Dysphagia at high risk of Aspiration - refused PEG tube placement. Discharge to [facility] today. Pt sister also refused to consider hospice at this time. Subjective Date patient seen: Apr 03, 2018 Time patient seen: 16:30 Constitutional: Reports: weakness HEENT: Reports: no symptoms Cardiovascular: Reports: no symptoms Respiratory: Reports: no symptoms Genitourinary: Reports: no symptoms Neurologic/Psychiatric: Reports: no symptoms Endocrine: Reports: no symptoms Hematologic/Lymphatic: Reports: no symptoms Allergies: Coded Allergies: MORPHINE (Verified Allergy, Unknown, 03/25/18) PENICILLINS (Verified Allergy, Unknown, 03/05/18) Subjective This morning he is doing well. He is afebrile. no sob or chest pain. he had video swallow done that showed high risk of aspiration. Objective Last 24 Hour Vital Signs Date Time Temp Pulse Resp B/P (MAP) Pulse Ox O2 Delivery O2 Flow Rate FiO2 04/03/18 16:00 Nasal Cannula 2.0 04/03/18 16:00 98.6 84 18 113/76 (88) 97 04/03/18 13:00 96 123/69 04/03/18 12:00 Nasal Cannula 2.0 04/03/18 12:00 98.1 85 20 123/69 (87) 97 04/03/18 12:00 96 04/03/18 08:53 76 04/03/18 08:00 Nasal Cannula 2.0 04/03/18 08:00 97.7 76 20 122/84 (97) 99 04/03/18 08:00 74 04/03/18 05:04 84 121/61 04/03/18 04:00 Nasal Cannula 2.0 04/03/18 04:00 97.7 84 18 121/61 (81) 99 04/03/18 04:00 79 04/03/18 00:57 82 115/66 04/03/18 00:00 78 04/03/18 00:00 97.7 82 18 115/66 (82) 97 04/03/18 00:00 Nasal Cannula 2.0 04/02/18 20:00 Nasal Cannula 2.0 04/02/18 20:00 98.1 78 18 112/64 (80) 99 04/02/18 20:00 72 04/02/18 17:27 75 120/81 Intake and Output 04/02/18 04/03/18 19:00 07:00 Intake Total 1396.25 ml 1445 ml Output Total 1900 ml Balance -503.75 ml 1445 ml Intake Free Water 50 ml 20 ml IV Total 686.25 ml 825 ml Tube Feeding 660 ml 600 ml Output Urine Total 1900 ml Laboratory Tests 04/03/18 04:00: White Blood Count 6.7, Red Blood Count 3.16L, Hemoglobin 8.8L, Hematocrit 28.2L , Mean Corpuscular Volume 89, Mean Corpuscular Hemoglobin 27.9, Mean Corpuscular Hemoglobin Concent 31.2L, Red Cell Distribution Width 14.5, Platelet Count 162, Mean Platelet Volume 6.2L, Neutrophils (%) (Auto) 67.1, Lymphocytes (%) (Auto) 17.3L, Monocytes (%) (Auto) 11.6H, Eosinophils (%) (Auto ) 3.3H, Basophils (%) (Auto) 0.6, Sodium Level 136, Potassium Level 3.8, Chloride Level 99, Carbon Dioxide Level 32, Anion Gap 5, Blood Urea Nitrogen 18 , Creatinine 1.5H, Estimat Glomerular Filtration Rate , Glucose Level 142H, Calcium Level 8.4L Height (Feet): 5 Height (Inches): 8.00 Weight (Pounds): 231 General Appearance: no apparent distress, alert EENT: normal ENT inspection Neck: non-tender, normal alignment, supple Cardiovascular: normal rate, regular rhythm Respiratory/Chest: lungs clear, normal breath sounds Abdomen: normal bowel sounds, non tender, soft Extremities: normal range of motion, non-tender Edema: no edema noted Arm (L), no edema noted Arm (R), no edema noted Leg (L), no edema noted Leg (R), no edema noted Pedal (L), no edema noted Pedal (R), no edema noted Generalized Neurologic: alert, responsive Skin: warm/dry Lymphatic: normal anterior cervical (L), normal anterior cervical (R), normal posterior cervical (L), normal posterior cervical (R), normal submandibular (L) , normal submandibular (R), normal supraclavicular (L), normal supraclavicular ( R), normal axillary (L), normal axillary (R), normal inguinal (L), normal inguinal (R), normal other Shelby Arrington MD Apr 03, 2018 16:49
[2018-04-03 18:00] VITALS: BP 113/76
--- NOTE | 2018-04-03 22:15 | Discharge Summary ---
DATE OF ADMISSION: 03/24/2018 DATE OF DISCHARGE: 04/03/2018 HOSPITAL COURSE: This is an 87-year-old male who was brought in for atrial fibrillation with rapid ventricular response in the range of 140s to 150s and recent guaiac-positive stool at the rehab. The patient was evaluated in the emergency room and was found to have aspiration pneumonia and in rapid ventricular rate with a heart rate in 140s. The patient was transferred to ICU and was started on diltiazem IV and later on, his heart rate was controlled with addition of digoxin. The patient was seen by Cardiology, Dr. Bay throughout the hospital admission. He was also treated for aspiration pneumonia with IV antibiotic, vancomycin for a total of 10 days. The patient responded to the treatment with white blood cell count improved to back down 6 to 6.7. The patient was also confused and had a slight facial droop on the right side and MRI of the brain was done showing small acute right frontal deep white matter lacunar infarct. He also had a swallowing evaluation done showing the patient had a high risk of aspiration and after discussing with the patient's sister and the patient himself, they refused PEG tube placement for the patient. The patient was planned to restart eating even though he has had high risk of aspiration. I discussed hospice for the patient as well with the patient's sister; however, she refused consideration of hospice at this point. He also had upper and lower endoscopy done that did not show any sign of acute bleed; however, his colonoscopy showed multiple colonic polyps that few were resected by Dr. Barrera. the patient was at high risk of bleeding, most likely secondary to Eliquis, which is a blood thinner due to his atrial fibrillation and stroke. We held blood thinner because of possibility of requiring blood loss and anemia. The patient also had CT of the abdomen and pelvis done showing right renal mass possibility of malignant renal mass. The patient was seen by Dr. Chase and consideration of possible nephrectomy was discussed with the family and currently refusing any type of surgery for him at this time. We decided to send the patient back to [facility] where he resides at this point and we will follow up the patient as outpatient there. DISCHARGE DIAGNOSES: 1. Atrial fibrillation with rapid ventricular response, resolved. 2. Aspiration pneumonia. 3. Parkinson disease. 4. Hyperlipidemia. 5. Anemia. 6. Dysphagia. 7. Small right frontal lacunar infarct. 8. Right renal mass. DISCHARGE MEDICATIONS: Include: 1. Digoxin 250 mcg p.o. daily. 2. Diltiazem 60 mg q.6 h. 3. Lasix 40 mg daily. 4. Gabapentin 100 mg at bedtime. 5. Zofran 4 mg q.4 h. p.r.n. 6. Protonix 40 mg p.o. daily. 7. Flomax 0.4 mg at bedtime. 8. Acetaminophen 650 mg q.6 h. p.r.n. 9. Atorvastatin 20 mg at bedtime. 10. Sinemet 25/100 one p.o. three times a day 11. Multivitamin with mineral one p.o. daily. 12. Zofran 4 mg q.4 h. p.r.n. 13. Ultram 50 mg q.8 h. p.r.n. for pain. 14. Effexor XR 37.5 mg p.o. daily. DISPOSITION: The patient will be discharged back to [facility] today and I will follow the patient in a few days. Shelby Arrington M.D. DR: DANTE JOB#: [id number] CC:
--- NOTE | 2018-04-04 17:10 | Diagnostic Imaging Report ---
Indications: Dysphagia Technique: Patient ingested multiple substances under the supervision of speech pathology. Video fluoroscopic recording performed. Total fluoroscopy time 273 seconds. Total dose area product [id number] Total number of images-13 Comparison: none Findings: With ingestion of thin liquid barium, there is supraglottic laryngeal penetration demonstrated. No marco a aspiration. With ingestion of nectar thick liquid barium, multiple episodes of penetration and at least one episode of aspiration demonstrated. With ingestion of honey thick liquid barium, no aspiration or penetration. No aspiration or penetration with barium puree or masticated solid Impression: positive for penetration of thin liquid barium, aspiration of nectar thick liquid barium. Please refer to speech pathology report for more detailed analysis
== END 2018-04-03 19:30 | disposition home or self-care (01) | DRG 177 ==
LOC: EDBD 20:30 → EMR 21:00 → 2W 21:15 → EDBEDREQ 21:37 → 2W 03-25 00:12 → ICU 03-25 06:21 → 2W 03-27 15:35
DX: J69.0 Pneumonitis due to inhalation of food and vomit (principal); I63.9 Cerebral infarction, unspecified; G93.40 Encephalopathy, unspecified; N17.9 Acute kidney failure, unspecified; I13.0 Hypertensive heart and chronic kidney disease with heart failure and stage 1 through stage 4 chronic kidney disease, or unspecified chronic kidney disease; I50.30 Unspecified diastolic (congestive) heart failure; I25.10 Atherosclerotic heart disease of native coronary artery without angina pectoris; E78.5 Hyperlipidemia, unspecified; J44.9 Chronic obstructive pulmonary disease, unspecified; G20 Parkinson's disease; F02.80 Dementia in other diseases classified elsewhere, unspecified severity, without behavioral disturbance, psychotic disturbance, mood disturbance, and anxiety; I48.91 Unspecified atrial fibrillation; Z79.01 Long term (current) use of anticoagulants; E86.0 Dehydration; N18.9 Chronic kidney disease, unspecified; E11.22 Type 2 diabetes mellitus with diabetic chronic kidney disease; D64.9 Anemia, unspecified; R26.89 Other abnormalities of gait and mobility; F32.9 Major depressive disorder, single episode, unspecified; N40.1 Benign prostatic hyperplasia with lower urinary tract symptoms; N39.498 Other specified urinary incontinence; R31.9 Hematuria, unspecified; N31.9 Neuromuscular dysfunction of bladder, unspecified; N28.1 Cyst of kidney, acquired; N28.89 Other specified disorders of kidney and ureter; R13.10 Dysphagia, unspecified; K63.5 Polyp of colon; D17.5 Benign lipomatous neoplasm of intra-abdominal organs; K57.30 Diverticulosis of large intestine without perforation or abscess without bleeding; K64.8 Other hemorrhoids; K20.9 Esophagitis, unspecified; K29.70 Gastritis, unspecified, without bleeding; K29.80 Duodenitis without bleeding
CPT/HCPCS: 36415; 36569; 70450; 70551; 71045; 71275; 73502; 74018; 74177; 74230; 76770; 76937; 80048; 80053; 80162; 80202; 81003; 82140; 82270; 82378; 82550; 82553; 82607; 82728; 82746; 83540; 83550; 83605; 83735; 83880; 84100; 84439; 84443; 84484; 85025; 85044; 85379; 85610; 85730; 86850; 86900; 86901; 87040; 87070; 87081; 87205; 93005; 93970; 94003; 94150; 96361; 96365; 96366; 96367; 96368; 96375; 99285

== ENCOUNTER 2018-04-25 08:45 | Inpatient (IN) | payer MEDICARE, OTHER ==
[~2018-04-25] VITALS: Ht 167.6 cm; Wt 97.1 kg
[~2018-04-25 08:45] MED LIST changes: +CARDIZEM60 MG NG; +DEMADEX10 MG PO; +FLOMAX0.4 MG ORAL; +LANOXIN250 MCG ORAL; +MULTIVITAMINS1 EAC8 ORAL; +PROTONIX40 M1 PO; +QUETIAPINE FUMA25 MG ORAL
[2018-04-25] MEDS ORDERED: Sodium Chloride 500ML 500 ML IV ONE (08:50)
--- NOTE | 2018-04-25 08:55 | NUR ---
ED Nurse Note: Pt came BIBA from [facility] d/t failure to thrive. pt was sent here per Dr Arrington for G-tube placcement.
[2018-04-25 09:00] VITALS: BP 146/72
--- NOTE | 2018-04-25 09:15 | NUR ---
ED Nurse Note: Redness noted at the left groin region
[2018-04-25 09:21] LABS: BASOPHILS % (AUTO) 1.3 % (0.0-2.0); EOSINOPHILS % (AUTO) 4.2 % (0.0-3.0); HEMATOCRIT 36.5 % (42.0-52.0); HEMOGLOBIN 11.3 G/DL (14.2-18.0); LYMPHOCYTES % (AUTO) 24.1 % (20.0-45.0); MEAN CORPUSCULAR VOLUME 92 FL (80-99); MONOCYTES % (AUTO) 8.7 % (1.0-10.0); NEUTROPHILS % (AUTO) 61.7 % (45.0-75.0); PLATELET COUNT 172 K/UL (150-450); RED BLOOD COUNT 3.95 M/UL (4.70-6.10); RED CELL DISTRIBUTION WIDTH 14.7 % (11.6-14.8); WHITE BLOOD COUNT 8.4 K/UL (4.8-10.8)
--- NOTE | 2018-04-25 09:23 | Emergency Room Report ---
History of Present Illness General Chief Complaint: General Complaint Source: Patient Present Illness HPI 87-year-old male presents ED for evaluation. Sent from intermediate facility for evaluation. Per nursing staff patient is had a poor appetite for several days now. Not eating or drinking. History of dementia. Upon arrival patient showing no signs of distress. No reported fevers or chills or nausea or vomiting. No other aggravating relieving factors. No other associated symptoms Allergies: Coded Allergies: MORPHINE (Verified Allergy, Unknown, 03/25/18) PENICILLINS (Verified Allergy, Unknown, 03/05/18) Patient History Past Medical History: HTN, AFib, COPD, dementia Past Surgical History: none Pertinent Family History: none Social History: Denies: smoking, alcohol use, drug use Immunizations: UTD Reviewed Nursing Documentation: PMH: Agreed; PSxH: Agreed Nursing Documentation-PMH Past Medical History: No History, Except For Hx Cardiac Problems: Yes - A-Fib, Hyperlipidemia Hx Hypertension: Yes Hx COPD: Yes Hx Cancer: No Hx Gastrointestinal Problems: No Hx Neurological Problems: Yes - Parkinson, Neuropathy Hx Dementia: Yes Hx Parkinson's Disease: Yes Review of Systems All Other Systems: limited Physical Exam Vital Signs Date Time Temp Pulse Resp B/P (MAP) Pulse Ox O2 Delivery O2 Flow Rate FiO2 04/25/18 08:41 97.3 67 20 115/75 96 Nasal Cannula 3.0 Sp02 EP Interpretation: reviewed, normal General Appearance: no apparent distress, non-toxic, other - nonverbal Head: normocephalic Eyes: bilateral eye normal inspection, bilateral eye PERRL ENT: normal ENT inspection Neck: normal inspection Respiratory: chest non-tender, lungs clear, normal breath sounds, speaking full sentences Cardiovascular #1: regular rate, rhythm, no edema Gastrointestinal: normal bowel sounds, non tender, soft, non-distended, no guarding, no rebound Rectal: deferred Genitourinary: no CVA tenderness Musculoskeletal: normal inspection Neurologic: other - nonverbal Psychiatric: other - nonverbal Skin: normal inspection Lymphatic: normal inspection Medical Decision Making Diagnostic Impression: Primary Impression: FTT (failure to thrive) in adult Additional Impressions: CKD (chronic kidney disease) Qualified Codes: N18.9 - Chronic kidney disease, unspecified Hypernatremia ER Course Hospital Course 87-year-old male presenting to ED with generalized weakness, unable to eat. Differential diagnoses include: Pneumonia, UTI, sepsis, dehydration, FTT Clinical course Patient placed on stretcher. On support staff with tachycardia. After initial history and physical, I ordered labs, IV fluids, EKG, chest x-ray Labs - no leukocytosis, hb/hct stable, Na 147, Cr 2.5 EKG - NSR, some twave flattening in lateral leads CXR - no acute process IV hydration continued. Patient would benefit from G-tube placement. Dr. Barrera consulted. Case discussed with Dr Barrera and they agreed to admit patient to their service for further care and support I feel this is a highly complex case requiring extensive working including EKG/ Rhythm strip, Xray/CT/US, Blood/urine lab work, repeat exams while in ED, and administration of strong opiates/narcotics for pain control, admission to hospital or close patient follow up. Diagnosis - failure to thrive, CKD, hypernatremia Patient admitted to floor in serious condition Labs Test 04/25/18 09:00 04/25/18 09:47 White Blood Count 8.4 K/UL (4.8-10.8) Red Blood Count 3.95 M/UL (4.70-6.10) Hemoglobin 11.3 G/DL (14.2-18.0) Hematocrit 36.5 % (42.0-52.0) Mean Corpuscular Volume 92 FL (80-99) Mean Corpuscular Hemoglobin 28.6 PG (27.0-31.0) Mean Corpuscular Hemoglobin Concent 31.0 G/DL (32.0-36.0) Red Cell Distribution Width 14.7 % (11.6-14.8) Platelet Count 172 K/UL (150-450) Mean Platelet Volume 6.2 FL (6.5-10.1) Neutrophils (%) (Auto) 61.7 % (45.0-75.0) Lymphocytes (%) (Auto) 24.1 % (20.0-45.0) Monocytes (%) (Auto) 8.7 % (1.0-10.0) Eosinophils (%) (Auto) 4.2 % (0.0-3.0) Basophils (%) (Auto) 1.3 % (0.0-2.0) Prothrombin Time 11.3 SEC (9.30-11.50) Prothromb Time International Ratio 1.1 (0.9-1.1) Activated Partial Thromboplast Time 27 SEC (23-33) Sodium Level 147 MMOL/L (136-145) Potassium Level 4.5 MMOL/L (3.5-5.1) Chloride Level 108 MMOL/L (98-107) Carbon Dioxide Level 33 MMOL/L (21-32) Anion Gap 6 mmol/L (5-15) Blood Urea Nitrogen 32 mg/dL (7-18) Creatinine 2.5 MG/DL (0.55-1.30) Estimat Glomerular Filtration Rate mL/min (>60) Glucose Level 122 MG/DL (74-106) Calcium Level 9.3 MG/DL (8.5-10.1) Total Bilirubin 0.6 MG/DL (0.2-1.0) Aspartate Amino Transf (AST/SGOT) 43 U/L (15-37) Alanine Aminotransferase (ALT/SGPT) 10 U/L (12-78) Alkaline Phosphatase 169 U/L (46-116) Total Protein 7.3 G/DL (6.4-8.2) Albumin 2.7 G/DL (3.4-5.0) Globulin 4.6 g/dL Albumin/Globulin Ratio 0.6 (1.0-2.7) Lipase 246 U/L (73-393) Urine Color Yellow Urine Appearance Clear Urine pH 5 (4.5-8.0) Urine Specific [place] 1.020 (1.005-1.035) Urine Protein 3+ (NEGATIVE) Urine Glucose (UA) Negative (NEGATIVE) Urine Ketones 1+ (NEGATIVE) Urine Blood 2+ (NEGATIVE) Urine Nitrite Negative (NEGATIVE) Urine Bilirubin Negative (NEGATIVE) Urine Urobilinogen 1 MG/DL (0.0-1.0) Urine Leukocyte Esterase 1+ (NEGATIVE) Urine RBC 5-10 /HPF (0 - 0) Urine WBC 0-2 /HPF (0 - 0) Urine Squamous Epithelial Cells Occasional /LPF Urine Bacteria Occasional /HPF (NONE) Urine Mucus Few /LPF (NONE/OCC) EKG Diagnostic Results Rate: normal Rhythm: NSR ST Segments: other - twave inversions in lateral leads ASA given to the pt in ED: Yes Rhythm Strip Diag. Results EP Interpretation: yes Rhythm: NSR, no PVC's, no ectopy Chest X-Ray Diagnostic Results Chest X-Ray Diagnostic Results : Chest X-Ray Ordered: Yes # of Views/Limited/Complete: 1 View Indication: Other - preop EP Interpretation: Yes Interpretation: no consolidation, no effusion, no pneumothorax, no acute cardiopulmonary disease Impression: No acute disease Electronically Signed by: Electronically signed by Carlo Horton MD Last Vital Signs Date Time Temp Pulse Resp B/P (MAP) Pulse Ox O2 Delivery O2 Flow Rate FiO2 04/25/18 08:41 97.3 67 20 115/75 96 Nasal Cannula 3.0 Status: improved Disposition: ADMITTED INPATIENT Condition: Serious Carlo Horton MD Apr 25, 2018 09:23
[2018-04-25 09:33] LABS: INR 1.1 (0.9-1.1)
[2018-04-25 09:38] LABS: ANION GAP 6 mmol/L (5-15); BLOOD UREA NITROGEN 32 mg/dL (7-18); CALCIUM 9.3 MG/DL (8.5-10.1); CARBON DIOXIDE 33 MMOL/L (21-32); CHLORIDE 108 MMOL/L (98-107); CREATININE 2.5 MG/DL (0.55-1.30); POTASSIUM 4.5 MMOL/L (3.5-5.1); SODIUM 147 MMOL/L (136-145)
[2018-04-25 09:42] LABS: ALANINE AMINOTRANSFERASE 10 U/L (12-78); ALBUMIN 2.7 G/DL (3.4-5.0); ALBUMIN/GLOBULIN RATIO 0.6 (1.0-2.7); ALKALINE PHOSPHATASE 169 U/L (46-116); ASPARTATE AMINO TRANSFERASE 43 U/L (15-37); BILIRUBIN,TOTAL 0.6 MG/DL (0.2-1.0)
--- NOTE | 2018-04-25 09:50 | Diagnostic Imaging Report ---
Indication: Dyspnea Comparison: March 24, 2018 A single view chest radiograph was obtained. Findings: Cardiomediastinal appearance is within normal limits for age. Aorta is enlarged consistent with atherosclerotic disease. The lungs are clear. Pulmonary vascularity is appropriate. The diaphragmatic contour is smooth and costophrenic angles are sharp. No pleural effusions are identified. The bones are osteopenic. Impression: No acute findings
--- NOTE | 2018-04-25 10:01 | NUR ---
ED Nurse Note: redness noted on the buttocks area but skin is intact
[2018-04-25 10:06] LABS: APPEARANCE,URINE CLEAR; BILIRUBIN, URINE NEGATIVE (NEGATIVE); GLUCOSE, URINE (UA) NEGATIVE (NEGATIVE); KETONES,URINE 1+ (NEGATIVE); LEUKOCYTE ESTERASE ,URINE 1+ (NEGATIVE); NITRITE,URINE NEGATIVE (NEGATIVE); PH,URINE 5 (4.5-8.0); PROTEIN,URINE 3+ (NEGATIVE); UROBILINOGEN,URINE 1 MG/DL (0.0-1.0)
[2018-04-25 10:24] LABS: COLOR,URINE YELLOW
--- NOTE | 2018-04-25 10:30 | NUR ---
ED Nurse Note: Attempted to give report to admitting unit. Jose Roberto Meza answered and said to call back in 5 minutes d/t receiving nurse giving medication to another pt. at the moment. will attempt to call again
--- NOTE | 2018-04-25 10:40 | NUR ---
ED Nurse Note: Report given to SHANNON Anderson receiving nurse.
--- NOTE | 2018-04-25 11:10 | NUR ---
NURSE NOTES: Received patient from ER via gurney, patient is awake, non verbal. Breathing is even and unlabored. No s/s of pain or discomfort per FLACC pain scale.IV intact, no s/s of infiltration.Heel protectors from the nursing, other than that, no belongings. No dentures or hearing aid. Unable to orient about the unit and plan of care due to patient's impaired cognition and patient is nonverbal does not follow direction. Head to toe skin assessment done noted with dry scab and skin on left heel and blanchable redness on buttocks. Proper incontinent care provided. Call light within reach, bed is in lowest position and locked. Heels are floated to off the load. Will continue plan of care. Dr. Nury goel paged for admission order.Awaiting for return call.
[2018-04-25 12:00] VITALS: BP 140/63
--- NOTE | 2018-04-25 12:27 | GI Initial Consult Note ---
History of Present Illness General Date patient seen: Apr 25, 2018 Time patient seen: 12:13 Reason for Hospitalization: General Complaint Referring physician: PETER ARRINGTON Reason for Consultation: PEG Present Illness HPI 87-year-old male presents ED for evaluation. [facility]. Per nursing staff patient is had a poor appetite for several days now. Not eating or drinking. History of dementia. Upon arrival patient showing no signs of distress. No reported fevers or chills or nausea or vomiting. No other aggravating relieving factors. No other associated symptoms. GI consulted for PEG placement. ROS limited, patient seen asleep NAD with no active signs of symptoms of N/V. Pt known to me from prior admission in which at the time the sister refused GTube placement. 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 I spoke to the sister today and she had agreed to have GT placement performed. Home Meds Active Scripts Ondansetron* (ZOFRAN*) 4 Mg/2 Ml Vial, 4 MG PO Q4H PRN, #30 VIAL Prov:Peter Arrington MD 04/03/18 Pantoprazole* (PROTONIX*) 40 Mg Vial, 40 MG PO DAILY, #30 VIAL Prov:Peter Arrington MD 04/03/18 Tamsulosin HCl (Flomax) 0.4 Mg Cap.er.24h, 0.4 MG ORAL BEDTIME, #30 CAP Prov:Peter Arrington MD 04/03/18 Gabapentin* (GABAPENTIN*) 100 Mg Capsule, 100 MG ORAL QHS, #30 CAP Prov:Peetr Arrington MD 04/03/18 Furosemide (Furosemide) 10 Mg/1 Ml Vial, 40 MG PO DAILY, #30 VIAL Prov:Peter Arrington MD 04/03/18 Diltiazem Hcl* (CARDIZEM*) 60 Mg Tablet, 60 MG NG EVERY 6 HOURS, #120 TAB Prov:Peter Arrington MD 04/03/18 Digoxin* (LANOXIN*) 250 Mcg Tablet, 0.25 MG ORAL DAILY, #30 TAB Prov:Peter Arrington MD 04/03/18 Ondansetron* (ZOFRAN*) 4 Mg/2 Ml Vial, 4 MG PO Q4H PRN for 30 Days, VIAL Prov:Peter Arrington MD 03/12/18 Tramadol Hcl* (ULTRAM*) 50 Mg Tablet, 50 MG ORAL Q8H PRN for 30 Days, TAB Prov:Peter Arrington MD 03/12/18 Venlafaxine HCl (Effexor Xr) 37.5 Mg Cap.er.24h, 37.5 MG ORAL DAILY for 30 Days , CAP Prov:Peter Arrington MD 03/12/18 Atorvastatin Calcium* (LIPITOR*) 20 Mg Tablet, 20 MG ORAL BEDTIME for 30 Days, TAB Prov:Peter Arrington MD 03/12/18 Apixaban (ELIQUIS) 2.5 Mg Tablet, 2.5 MG ORAL BID for 30 Days, TAB Prov:Peter Arrington MD 03/12/18 Acetaminophen* (ACETAMINOPHEN 325MG TABLET*) 325 Mg Tablet, 650 MG ORAL Q6H PRN for 30 Days, TAB Prov:Peter Arrington MD 03/12/18 Reported Medications Multivitamin With Minerals (MULTIVITAMINS WITH MINERALS*) 1 Each Tablet, 1 TAB ORAL DAILY, TAB 03/25/18 Carbidopa/Levodopa 25-100 Mg* (SINEMET 25-100 MG TABLET*) 1 Each Tablet, 1 TAB ORAL THREE TIMES A DAY, TAB 03/05/18 Multivits,Ca,Minerals/Iron/FA (Thera M Plus Tablet) 1 Each Tablet, 1 EACH PO, TAB 03/05/18 Med list reviewed/reconciled: Yes Allergies: Coded Allergies: MORPHINE (Verified Allergy, Unknown, 03/25/18) PENICILLINS (Verified Allergy, Unknown, 03/05/18) Patient History Limited by: medical condition History Provided By: Medical Record [facility] Narrative Past Medical History: HTN, AFib, COPD, dementia Past Surgical History: none Pertinent Family History: none Social History: Denies: smoking, alcohol use, drug use Immunizations: UTD Reviewed Nursing Documentation: PMH: Agreed; PSxH: Agreed Nursing Documentation-PM Past Medical History: No History, Except For Hx Cardiac Problems: Yes - A-Fib, Hyperlipidemia Hx Hypertension: Yes Hx COPD: Yes Hx Cancer: No Hx Gastrointestinal Problems: No Hx Neurological Problems: Yes - Parkinson, Neuropathy Hx Dementia: Yes Hx Parkinson's Disease: Yes Review of Systems All Other Systems: limited Physical Exam Vital Signs Date Time Temp Pulse Resp B/P (MAP) Pulse Ox O2 Delivery O2 Flow Rate FiO2 04/25/18 08:41 97.3 67 20 115/75 96 Nasal Cannula 3.0 Sp02 EP Interpretation: reviewed, normal Labs Laboratory Tests Test 04/25/18 09:00 04/25/18 09:47 White Blood Count 8.4 K/UL (4.8-10.8) Red Blood Count 3.95 M/UL (4.70-6.10) L Hemoglobin 11.3 G/DL (14.2-18.0) L Hematocrit 36.5 % (42.0-52.0) L Mean Corpuscular Volume 92 FL (80-99) Mean Corpuscular Hemoglobin 28.6 PG (27.0-31.0) Mean Corpuscular Hemoglobin Concent 31.0 G/DL (32.0-36.0) L Red Cell Distribution Width 14.7 % (11.6-14.8) Platelet Count 172 K/UL (150-450) Mean Platelet Volume 6.2 FL (6.5-10.1) L Neutrophils (%) (Auto) 61.7 % (45.0-75.0) Lymphocytes (%) (Auto) 24.1 % (20.0-45.0) Monocytes (%) (Auto) 8.7 % (1.0-10.0) Eosinophils (%) (Auto) 4.2 % (0.0-3.0) H Basophils (%) (Auto) 1.3 % (0.0-2.0) Prothrombin Time 11.3 SEC (9.30-11.50) Prothromb Time International Ratio 1.1 (0.9-1.1) Activated Partial Thromboplast Time 27 SEC (23-33) Sodium Level 147 MMOL/L (136-145) H Potassium Level 4.5 MMOL/L (3.5-5.1) Chloride Level 108 MMOL/L (98-107) H Carbon Dioxide Level 33 MMOL/L (21-32) H Anion Gap 6 mmol/L (5-15) Blood Urea Nitrogen 32 mg/dL (7-18) H Creatinine 2.5 MG/DL (0.55-1.30) H Estimat Glomerular Filtration Rate mL/min (>60) Glucose Level 122 MG/DL (74-106) H Calcium Level 9.3 MG/DL (8.5-10.1) Total Bilirubin 0.6 MG/DL (0.2-1.0) Aspartate Amino Transf (AST/SGOT) 43 U/L (15-37) H Alanine Aminotransferase (ALT/SGPT) 10 U/L (12-78) L Alkaline Phosphatase 169 U/L (46-116) H Total Protein 7.3 G/DL (6.4-8.2) Albumin 2.7 G/DL (3.4-5.0) L Globulin 4.6 g/dL Albumin/Globulin Ratio 0.6 (1.0-2.7) L Lipase 246 U/L (73-393) Urine Color Yellow Urine Appearance Clear Urine pH 5 (4.5-8.0) Urine Specific [place] 1.020 (1.005-1.035) Urine Protein 3+ (NEGATIVE) H Urine Glucose (UA) Negative (NEGATIVE) Urine Ketones 1+ (NEGATIVE) H Urine Blood 2+ (NEGATIVE) H Urine Nitrite Negative (NEGATIVE) Urine Bilirubin Negative (NEGATIVE) Urine Urobilinogen 1 MG/DL (0.0-1.0) H Urine Leukocyte Esterase 1+ (NEGATIVE) H Urine RBC 5-10 /HPF (0 - 0) H Urine WBC 0-2 /HPF (0 - 0) Urine Squamous Epithelial Cells Occasional /LPF Urine Bacteria Occasional /HPF (NONE) Urine Mucus Few /LPF (NONE/OCC) H General Appearance: well appearing, no apparent distress, alert Head: normocephalic EENT: PERRL/EOMI, normal ENT inspection Neck: supple Respiratory: normal breath sounds, no respiratory distress Cardiovascular: normal rate Gastrointestinal: normal inspection, non tender, soft, normal bowel sounds, non -distended Rectal: deferred Genitourinary: deferred Musculoskeletal: normal inspection, back normal Neurologic: alert, responsive Skin: normal inspection, normal color, no rash, warm/dry, palpation normal, well hydrated Lymphatic: normal inspection, no adenopathy GI: Plan Problems: (1) Dementia (2) FTT (failure to thrive) in adult (3) Dysphagia causing pulmonary aspiration with swallowing (4) Anemia Plan Head CT reviewed >> negative for bleed or mass ST evaluation reviewed OB stool positive refused PEG last admission SUMMARY OF FINDINGS: 1. Multiple colonic polyps. 2. Diverticulosis. 3. Internal hemorrhoids. 4. 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 PEG to be scheduled tomorrow, sister agreed. - NPO @ [place]. - hold all blood thinners tonight TFs per RD to goal prn transfusions ppi fu labs will follow with additional recs post procedure Discussed with Dr. Barrera. Thank you for this patient referral, we will follow. The patient was seen and examined at bedside and all new and available data was reviewed in the patients chart. I agree with the above findings, impression and plan. (Patient seen earlier today. Signature stamp does not reflect patient encounter time.). - MD Nery Koch AnSpencer DOUGLAS Apr 25, 2018 12:27
[2018-04-25] MEDS: Levodopa/Carbidopa 25/100 tab ORAL SCH ×2 (13:30→17:09)
[2018-04-25] MEDS ORDERED: traMADol 50mg tab ORAL PRN (13:30)
--- NOTE | 2018-04-25 13:30 | NUR ---
NURSE NOTES: Dr. Arrington called back with new order to continue fci meds except lasix due to sodium level is [address] eval today. will come and check the patient for additional admission orders.
--- NOTE | 2018-04-25 13:40 | NUR ---
NURSE NOTES: Patient was seen by oz DURÁN @ bedside. RN unable to administer sinemet due to patient unable to tolerate food or meds.Will continue to monitor.
--- NOTE | 2018-04-25 13:55 | NUR ---
NURSE NOTES: Patient's sister Jewels De Jesusra spoke to Spencer and Spencer explained about EGD and PEG placement earlier. RN spoke to Jerica De Jesus and obtained the consent for EGD and PEG placement on the phone and another RN witnessed.
--- NOTE | 2018-04-25 15:55 | NUR ---
ST NOTE: BEDSIDE SWALLOW EVAL RECEIVED BEDSIDE SWALLOW EVAL ORDER CHART REVIEWED PRIOR THE EVALUATION PT IS A 87-YEAR-OLD MALE WHO WAS ADMITTED DUE TO FAILURE TO THRIVE AND G-TUBE PLACEMENT. 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 PLOF: PT RESIDES AT ASSISTED FACILITY. PER PT'S POLST: FULL CODE, OKAY TO LONG-TERM ARTIFICIAL FEEDING, INCLUDING FEEDING TUBES. [place]OS[place]ALLOW ST[place] [facility] [place] MILD TO MODERATE ORAL AND MODERATE TO MODERATELY SEVERE PHARYNGEAL DYSPHAGIA. VERY HIGH RISK FOR ASPIRATION WITH THIN(DEEP SILENT TRACE LARYNGEAL PENETRATION), TRACE AND SILENT ASPIRATION WITH SEQUENTIAL STRAW SIPS WITH NECTAR THICK LIQUIDS. NO ASPIRATION ON NECTAR THIC(TSP), HONEY THICK, PUDDING AND MASTICATED SOLID BUT HAS HIGH RISK. RECOMMENDED LONG-TERM NONORAL FEEDING MEANS WITH ORAL GRAT VS. COMFORT FEEDING. PT REFUSED TUBE FEEDING AT THAT TIME AND D/C BACK TO THE FACILITY WITH NECTAR THICK SOUP DIET. CURRENT STATUS: PT SEEN AT BEDSIDE IN PM. AWAKE, DID NOT FOLLOW DIRECTIONS, VERY SOFT VOICE. PT WITH NC(3L). GIVEN PO TRIALS: NECTAR THICK(1/2 TSP) ONLY INITIAL IMPRESSION: PERSISTENT SIGNIFICANT OR WORSENED OROPHARYNGEAL DYSPHAGIA L-SIDED FACIAL WEAKNESS/DROOP MILD TO MODERATE INCREASED ORAL TRANSIT TIME, AND MODERATELY DELAYED OROPHARYNGEAL TRANSIT TIME, INADEQUATE/INCOMPLETE LARYNGEAL ELEVATION, QUESTION ABLE DELAYED COUGH. PT IS AT HIGH RISK FOR SILENT ASPIRATION, MALNUTRITION AND DEHYDRATION. RECOMMENDATIONS: 1. BASED ON RECENT VIDEOSWALLOW STUDY(03/2018)AND TODAY B/S EVAL, LONG-TERM NONORAL FEEDING MEANS IS RECOMMENDED TO MAINTAIN NUTRITION AND HYDRATION NEEDS. 2. SWALLOW/SPEECH/COGNITION TX 3. CONSIDER REPEAT VIDEOSWALLOW STUDY OP AFTER SWALLOW TX. 4. KEEP PT NPO FOR NOW. D/W RN, MURTAZA PICKENS AND IN-CHARGE NURSE, DICKSON MARTINEZED NPO SIGN. 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
[2018-04-25 16:00] VITALS: BP 141/71
[2018-04-25] MEDS: dilTIAZem HCl 60mg tab ORAL SCH (17:09)
--- NOTE | 2018-04-25 17:58 | General Progress Note ---
Subjective Date patient seen: Apr 25, 2018 Time patient seen: 17:20 Allergies: Coded Allergies: MORPHINE (Verified Allergy, Unknown, 03/25/18) PENICILLINS (Verified Allergy, Unknown, 03/05/18) Subjective Please see full H&P note. Objective Last 24 Hour Vital Signs Date Time Temp Pulse Resp B/P (MAP) Pulse Ox O2 Delivery O2 Flow Rate FiO2 04/25/18 17:09 73 141/71 04/25/18 16:00 97.7 73 19 141/71 (94) 99 04/25/18 12:00 97.2 78 18 140/63 (88) 99 04/25/18 11:36 Room Air 2.0 04/25/18 10:53 97.3 69 16 146/72 100 Room Air 3.0 04/25/18 09:00 69 16 04/25/18 09:00 69 16 146/72 100 Room Air 04/25/18 08:41 97.3 67 20 115/75 96 Nasal Cannula 3.0 Laboratory Tests 04/25/18 09:00: White Blood Count 8.4, Red Blood Count 3.95L, Hemoglobin 11.3L, Hematocrit 36.5L , Mean Corpuscular Volume 92, Mean Corpuscular Hemoglobin 28.6, Mean Corpuscular Hemoglobin Concent 31.0L, Red Cell Distribution Width 14.7, Platelet Count 172, Mean Platelet Volume 6.2L, Neutrophils (%) (Auto) 61.7, Lymphocytes (%) (Auto) 24.1, Monocytes (%) (Auto) 8.7, Eosinophils (%) (Auto) 4.2H, Basophils (%) (Auto) 1.3, Prothrombin Time 11.3, Prothromb Time International Ratio 1.1, Activated Partial Thromboplast Time 27, Sodium Level 147H, Potassium Level 4.5, Chloride Level 108H, Carbon Dioxide Level 33H, Anion Gap 6, Blood Urea Nitrogen 32H, Creatinine 2.5H, Estimat Glomerular Filtration Rate , Glucose Level 122H, Calcium Level 9.3, Total Bilirubin 0.6, Aspartate Amino Transf (AST/SGOT) 43H, Alanine Aminotransferase (ALT/SGPT) 10L, Alkaline Phosphatase 169H, Total Protein 7.3, Albumin 2.7L, Globulin 4.6, Albumin/ Globulin Ratio 0.6L, Lipase 246 04/25/18 09:47: Urine Color Yellow, Urine Appearance Clear, Urine pH 5, Urine Specific [place] 1.020, Urine Protein 3+H, Urine Glucose (UA) Negative, Urine Ketones 1+H, Urine Blood 2+H, Urine Nitrite Negative, Urine Bilirubin Negative, Urine Urobilinogen 1H, Urine Leukocyte Esterase 1+H, Urine RBC 5-10H, Urine WBC 0-2, Urine Squamous Epithelial Cells Occasional, Urine Bacteria Occasional, Urine Mucus FewH Height (Feet): 5 Height (Inches): 6.00 Weight (Pounds): 207 Shelby Arrington MD Apr 25, 2018 17:58
--- NOTE | 2018-04-25 18:21 | NUR ---
NURSE NOTES: Received order from Dr. Arrington to d/c heparin and switch to SCD's to apply after the procedure and venous duplex.
--- NOTE | 2018-04-25 19:30 | NUR ---
NURSE NOTES: RECEIVED PATIENT LYING IN BED,AWAKE, NON VERBAL, HEAD OF BED ELEVATED ASPIRATION PRECAUTION, ALL NEEDS ANTICIPATED AND MET BY NURSING STAFF. NO SIGNS AND SYMPTOMS OF ACUTE CARDIO RESPIRATORY DISTRESS/SHORTNESS OF BREATH, NO EDEMA NOTED. IV SITE INTACT TO LEFT WRIST, NO SIGNS OF INFILTRATION, NO REDNESS/SWELLING NOTED, TOLERATING IV FLUIDS. ABDOMEN SOFT, AUDIBLE BOWEL SOUNDS, NO REPORT OF N/V/D. HEEL PROTECTORS INTACT. SIDE RAILS UP X3/BED IN LOWEST POSITION FOR SAFETY. CALL LIGHT WITHIN REACH. BED ALARM ON. NAD.
--- NOTE | 2018-04-25 19:43 | NUR ---
HAND-OFF: Report given to Radha.
[2018-04-25 20:00] VITALS: BP 120/69
[2018-04-25] MEDS: Atorvastatin 20mg tab ORAL SCH (21:00)
[2018-04-25] MEDS: Tamsulosin 0.4mg cap ORAL SCH (21:00)
[2018-04-26] VITALS (11 sets, daily range): BP systolic 97–163; BP diastolic 52–91
--- NOTE | 2018-04-26 | NUR ---
NURSE NOTES: NPO POST MIDNIGHT-
--- NOTE | 2018-04-26 00:42 | History and Physical Report ---
DATE OF ADMISSION: 04/25/2018 HISTORY OF PRESENT ILLNESS: This is an 87-year-old male who was brought in from [facility] for placement of a PEG tube. The patient has not been able to eat much in the fci due to coughing and dysphagia. The patient's family decided to have PEG tube placed for him. The patient, on his last hospital admission, refused PEG tube placement. He was admitted for atrial fibrillation with tachycardia on his last admission. PAST MEDICAL HISTORY: Includes history of Parkinson disease, dementia, acute kidney injury, history of trochanteric fracture of the left femur, atrial fibrillation with rapid ventricular rate, hyperlipidemia, gait instability, depression, neuropathy, CVA, renal mass, and history of GI bleed with normal upper and lower endoscopy. PAST SURGICAL HISTORY: Include hip surgery. FAMILY HISTORY: Noncontributory. ALLERGIES: No known drug allergy. REVIEW OF SYSTEMS: Negative except for history of present illness. PHYSICAL EXAMINATION: VITAL SIGNS: Temperature 97.3, pulse 67, respiration 20, blood pressure 115/75, pulse oximetry 96% on 3 L. GENERAL APPEARANCE: Alert and oriented x1. HEENT: Normocephalic and normochromic. Extraocular muscles intact. Throat is clear. NECK: Supple. No lymphadenopathy. CARDIOVASCULAR: Regular rate and rhythm. No murmur. No gallop. LUNGS: Clear to auscultation. No wheezing. No rales. No rhonchi. ABDOMEN: Soft, nontender, and nondistended. Positive bowel sounds. EXTREMITIES: No edema, cyanosis, or clubbing. NEUROLOGIC: Does not respond to command and mumbles only, but appears to understand wording. LABORATORY AND DIAGNOSTIC DATA: WBC 8.4, hemoglobin 11.3, hematocrit 36.5, platelet count 172,000, neutrophils 61, lymphocytes 24, monocytes 8, eosinophil 4.2, and basophils 1.3. Sodium 147, potassium 4.5, chloride 108, carbon dioxide 33, BUN is 32, creatinine 2.5, and glucose 122. AST 43, ALT 10, and alkaline phosphatase 169. Albumin 2.7 and lipase 246. INR is 1.1. PT 11.3 and APTT 27. UA showed +3 urine protein, urine ketone is 1 and blood is +2, leukocyte esterase +1, RBC 5 to 10, urobilinogen +1, urine mucus is few, and urine bacteria is occasional. A chest x-ray showed no acute finding. EKG showed normal sinus rhythm. IMPRESSION: 1. Dysphagia. The patient will be admitted for placement of a PEG tube tomorrow morning. GI will be consulted, Dr. Barrera and will see the patient for PEG tube placement. Also, we will get a cardiac clearance because of the patient's history of atrial fibrillation with rapid ventricular rate in his last admission. 2. Parkinson disease. We will continue home medications. 3. History of CVA. 4. Hypertension. 5. Hyperlipidemia. 6. Atrial fibrillation. 7. BPH. 8. History of renal mass. 9. History of CVA. The patient will be admitted for PEG tube placement and will be discharged back to the [facility] following the procedure, if stable. Pedro Gamble JOB#: [id number] CC: CINDY
[2018-04-26] MEDS: dilTIAZem HCl 60mg tab ORAL SCH ×4 (05:46→18:05)
--- NOTE | 2018-04-26 06:17 | NUR ---
NURSE NOTES: RESTED WELL THROUGHOUT THE NIGHT, NO SIGNIFICANT CHANGE OF CONDITION NOTED. SAFETY MAINTAINED. NAD.
[2018-04-26 06:48] LABS: BASOPHILS % (AUTO) 1.2 % (0.0-2.0); EOSINOPHILS % (AUTO) 5.5 % (0.0-3.0); HEMATOCRIT 32.8 % (42.0-52.0); HEMOGLOBIN 10.3 G/DL (14.2-18.0); LYMPHOCYTES % (AUTO) 25.2 % (20.0-45.0); MEAN CORPUSCULAR VOLUME 91 FL (80-99); MONOCYTES % (AUTO) 10.3 % (1.0-10.0); NEUTROPHILS % (AUTO) 57.8 % (45.0-75.0); PLATELET COUNT 165 K/UL (150-450); RED BLOOD COUNT 3.58 M/UL (4.70-6.10); RED CELL DISTRIBUTION WIDTH 14.5 % (11.6-14.8); WHITE BLOOD COUNT 7.4 K/UL (4.8-10.8)
[2018-04-26 06:52] LABS: INR 1.1 (0.9-1.1)
[2018-04-26 06:59] LABS: ALANINE AMINOTRANSFERASE 12 U/L (12-78); ALBUMIN 2.5 G/DL (3.4-5.0); ALBUMIN/GLOBULIN RATIO 0.6 (1.0-2.7); ALKALINE PHOSPHATASE 158 U/L (46-116); ANION GAP 7 mmol/L (5-15); ASPARTATE AMINO TRANSFERASE 18 U/L (15-37); BILIRUBIN,TOTAL 0.5 MG/DL (0.2-1.0); BLOOD UREA NITROGEN 28 mg/dL (7-18); CALCIUM 8.8 MG/DL (8.5-10.1); CARBON DIOXIDE 31 MMOL/L (21-32); CHLORIDE 109 MMOL/L (98-107); CREATININE 2.1 MG/DL (0.55-1.30); PHOSPHORUS 3.3 MG/DL (2.5-4.9); POTASSIUM 3.7 MMOL/L (3.5-5.1); SODIUM 147 MMOL/L (136-145)
[2018-04-26] MEDS ORDERED: Clindamycin 600mg 50 ML IV SCH (07:30)
--- NOTE | 2018-04-26 07:30 | Pre-Procedure Note/Attestation ---
Pre-Procedure Note/Attestation Complete Prior to Procedure Planned Procedure: not applicable Procedure Narrative: EGD/PEG Indications for Procedure Pre-Operative Diagnosis: dysphagia Attestation I attest that I discussed the nature of the procedure; its benefits; risks and complications; and alternatives (and the risks and benefits of such alternatives ), prior to the procedure, with the patient (or the patient's legal billing representative). I attest that, if there was a reasonable possibility of needing a blood transfusion, the patient (or the patient's legal billing representative) was given the [facility] standardized written summary, pursuant to the Tanner Giacomo Blood Safety Act ([place] Health and Safety Code # 1645, as amended). I attest that I re-evaluated the patient just prior to the surgery and that there has been no change in the patient's H&P, except as documented below: Olegario Barrera MD Apr 26, 2018 07:30
[2018-04-26] MEDS ORDERED: Clindamycin 600mg 50 ML IV ONE (07:38)
--- NOTE | 2018-04-26 07:58 | Anethesia Preoperative Eval ---
Anesthesia Pre-op PMH/ROS General Date of Evaluation: Apr 26, 2018 Time of Evaluation: 07:40 Anesthesiologist: Brooke Fountain CRNA ASA Score: ASA 3 Mallampati Score Class I : Soft palate, uvula, fauces, pillars visible Class II: Soft palate, uvula, fauces visible Class III: Soft palate, base of uvula visible Class IV: Only hard plate visible Mallampati Classification: Class II Surgeon: Bruce Diagnosis: FTT, dehydration Surgical Procedure: EGD, PEG placement Anesthesia History: none Social History: smoking Family History: no anesthesia problems Allergies: Coded Allergies: MORPHINE (Verified Allergy, Unknown, 03/25/18) PENICILLINS (Verified Allergy, Unknown, 03/05/18) Medications: see eMAR Patient NPO?: Yes NPO Date: Apr 26, 2018 NPO Time: 00:00 Past Medical History Cardiovascular: Reports: HTN, arrhythmia - Atrial Fibrillation; Denies: CAD, [place], valve dz, other Pulmonary: Denies: asthma, COPD, MONICA, other Gastrointestinal/Genitourinary: Reports: GERD, CRI, other - dysphagia, aspiration pneumonia; Denies: ESRD Neurologic/Psychiatric: Reports: dementia, CVA, depression/anxiety, other - Parkinson's; Denies: TIA Endocrine: Denies: DM, hypothyroidism, steroids, other HEENT: Denies: cataract (L), cataract (R), glaucoma, [place] (L), [place] (R), other Hematology/Immune: Denies: anemia, DVT, bleeding disorder, other Musculoskeletal/Integumentary: Reports: other - LEFT hip trochanter fracture; Denies: OA, RA, DJD, DDD, edema Other: obesity PMH Narrative: as above PSxH Narrative: see H&P Anesthesia Pre-op Phys. Exam Physician Exam Last Vital Signs Date Time Temp Pulse Resp B/P (MAP) Pulse Ox O2 Delivery O2 Flow Rate FiO2 04/26/18 05:46 67 127/65 04/26/18 04:00 96.8 20 99 04/25/18 21:00 Nasal Cannula 2.0 Constitutional: NAD Neurologic: CN 2-12 intact Cardiovascular: no M/R/G Respiratory: CTA Gastrointestinal: S/NT/ND Airway Exam Mallampati Score: Class II MO: full Neck: stiff TMD: > 3FB ROM: full Teeth: missing, broken Dentures: no upper, no lower Anesthesia Pre-op A/P Labs Hematology Test 04/25/18 09:00 04/26/18 05:10 White Blood Count 8.4 K/UL (4.8-10.8) 7.4 K/UL (4.8-10.8) Red Blood Count 3.95 M/UL (4.70-6.10) L 3.58 M/UL (4.70-6.10) L Hemoglobin 11.3 G/DL (14.2-18.0) L 10.3 G/DL (14.2-18.0) L Hematocrit 36.5 % (42.0-52.0) L 32.8 % (42.0-52.0) L Mean Corpuscular Volume 92 FL (80-99) 91 FL (80-99) Mean Corpuscular Hemoglobin 28.6 PG (27.0-31.0) 28.9 PG (27.0-31.0) Mean Corpuscular Hemoglobin Concent 31.0 G/DL (32.0-36.0) L 31.5 G/DL (32.0-36.0) L Red Cell Distribution Width 14.7 % (11.6-14.8) 14.5 % (11.6-14.8) Platelet Count 172 K/UL (150-450) 165 K/UL (150-450) Mean Platelet Volume 6.2 FL (6.5-10.1) L 5.8 FL (6.5-10.1) L Neutrophils (%) (Auto) 61.7 % (45.0-75.0) 57.8 % (45.0-75.0) Lymphocytes (%) (Auto) 24.1 % (20.0-45.0) 25.2 % (20.0-45.0) Monocytes (%) (Auto) 8.7 % (1.0-10.0) 10.3 % (1.0-10.0) H Eosinophils (%) (Auto) 4.2 % (0.0-3.0) H 5.5 % (0.0-3.0) H Basophils (%) (Auto) 1.3 % (0.0-2.0) 1.2 % (0.0-2.0) Coagulation Test 04/25/18 09:00 04/26/18 05:10 Prothrombin Time 11.3 SEC (9.30-11.50) 11.4 SEC (9.30-11.50) Prothromb Time International Ratio 1.1 (0.9-1.1) 1.1 (0.9-1.1) Activated Partial Thromboplast Time 27 SEC (23-33) 28 SEC (23-33) Chemistry Test 04/25/18 09:00 04/26/18 05:10 Sodium Level 147 MMOL/L (136-145) H 147 MMOL/L (136-145) H Potassium Level 4.5 MMOL/L (3.5-5.1) 3.7 MMOL/L (3.5-5.1) Chloride Level 108 MMOL/L (98-107) H 109 MMOL/L (98-107) H Carbon Dioxide Level 33 MMOL/L (21-32) H 31 MMOL/L (21-32) Anion Gap 6 mmol/L (5-15) 7 mmol/L (5-15) Blood Urea Nitrogen 32 mg/dL (7-18) H 28 mg/dL (7-18) H Creatinine 2.5 MG/DL (0.55-1.30) H 2.1 MG/DL (0.55-1.30) H Estimat Glomerular Filtration Rate mL/min (>60) mL/min (>60) Glucose Level 122 MG/DL (74-106) H 112 MG/DL (74-106) H Calcium Level 9.3 MG/DL (8.5-10.1) 8.8 MG/DL (8.5-10.1) Total Bilirubin 0.6 MG/DL (0.2-1.0) 0.5 MG/DL (0.2-1.0) Aspartate Amino Transf (AST/SGOT) 43 U/L (15-37) H 18 U/L (15-37) Alanine Aminotransferase (ALT/SGPT) 10 U/L (12-78) L 12 U/L (12-78) Alkaline Phosphatase 169 U/L (46-116) H 158 U/L (46-116) H Total Protein 7.3 G/DL (6.4-8.2) 6.6 G/DL (6.4-8.2) Albumin 2.7 G/DL (3.4-5.0) L 2.5 G/DL (3.4-5.0) L Globulin 4.6 g/dL 4.1 g/dL Albumin/Globulin Ratio 0.6 (1.0-2.7) L 0.6 (1.0-2.7) L Lipase 246 U/L (73-393) Phosphorus Level 3.3 MG/DL (2.5-4.9) Magnesium Level 1.8 MG/DL (1.8-2.4) Studies Pre-op Studies: EKG - A-fibrillation Risk Assessment & Plan Status Change Before Surgery: No Pre-Antibiotics Drug: Clindamycin 600 mg Given Within 1 Hr of Incision: Yes Time Given: 08:00 Brooke Fountain CRNA Apr 26, 2018 07:58
[2018-04-26] MEDS ORDERED: Propofol 200mg/20ml IV ONE (08:00)
[2018-04-26] MEDS ORDERED: Phenylephrine 10mg/ml Vial ONE (08:00)
[2018-04-26] MEDS ORDERED: Lidocaine 1% MPF 10mg/ml 5ml ONE (08:00)
[2018-04-26] MEDS ORDERED: NS 500ML IVPB ONE (08:05)
--- NOTE | 2018-04-26 08:31 | Endoscopy Procedure Note ---
Endoscopy Procedure Note General Indication for Procedure: dysphagia Procedures Performed: EGD, PEG Operative Findings/Diagnosis: same Specimen: none Pt Tolerated Procedure Well: Yes Estimated Blood Loss: none Anesthesia Anesthesiologist: selene Anesthesia: MAC Inserted Devices Implant(s) used?: No GI Core Measures 50 yrs or older w/o bx or poly: Not Applicable 10yrs. F/U not recommended: Not Applicable Olegario Barrera MD Apr 26, 2018 08:31
--- NOTE | 2018-04-26 08:38 | Immediate Post-Op Evaluation ---
Immediate Post-Op Evalulation Immediate Post-Op Evalulation Procedure: EGD and PEG Date of Evaluation: Apr 26, 2018 Time of Evaluation: 08:24 IV Fluids: 0.9NS 200ml Estimated Blood Loss: none Blood Pressure Systolic: 097 Blood Pressure Diastolic: 60 Pulse Rate: 66 Respiratory Rate: 16 O2 Sat by Pulse Oximetry: 96 Temperature (Fahrenheit): 97.0 Pain Score (1-10): 0 Nausea: No Vomiting: No Complications none Patient Status: awake, reacts, patent Hydration Status: adequate Drug: Clindamycin 600 mg Given Within 1 Hr of Incision: Yes Time Given: 08:00 Brooke Fountain CRNA Apr 26, 2018 08:38
--- NOTE | 2018-04-26 08:56 | General Progress Note ---
Assessment/Plan Status: stable Assessment/Plan 1. Dysphagia s/p Peg Tube placement - D/C planning back to [facility] in 1-2 days. 2. Parkinson dx - cont home meds. 3. Lt leg acute popliteal thrombosis - will start Xarelto 20 mg one po daily in 1-2 days. 4. STUART - BUN and CR improving with hydration. Subjective Date patient seen: Apr 26, 2018 Time patient seen: 09:00 Constitutional: Reports: no symptoms HEENT: Reports: no symptoms Cardiovascular: Reports: no symptoms Respiratory: Reports: no symptoms Gastrointestinal/Abdominal: Reports: no symptoms Genitourinary: Reports: other - s/p PEG tube placement Neurologic/Psychiatric: Reports: no symptoms Endocrine: Reports: no symptoms Hematologic/Lymphatic: Reports: no symptoms Allergies: Coded Allergies: MORPHINE (Verified Allergy, Unknown, 03/25/18) PENICILLINS (Verified Allergy, Unknown, 03/05/18) Subjective He is s/p peg tube placement. His Lower ext U/S showed Lt acute thrombosis of popliteal artery. no fever or chills. no sob or chest pain. Objective Last 24 Hour Vital Signs Date Time Temp Pulse Resp B/P (MAP) Pulse Ox O2 Delivery O2 Flow Rate FiO2 04/26/18 08:38 66 16 96 04/26/18 05:46 67 127/65 04/26/18 04:00 96.8 67 20 127/65 (85) 99 04/26/18 00:00 97.0 70 20 137/71 (93) 95 04/26/18 00:00 75 120/69 04/25/18 21:00 Nasal Cannula 2.0 04/25/18 20:00 97.0 75 20 120/69 (86) 98 04/25/18 17:09 73 141/71 04/25/18 16:00 97.7 73 19 141/71 (94) 99 04/25/18 12:00 97.2 78 18 140/63 (88) 99 04/25/18 11:36 Room Air 2.0 04/25/18 10:53 97.3 69 16 146/72 100 Room Air 3.0 04/25/18 09:00 69 16 04/25/18 09:00 69 16 146/72 100 Room Air Intake and Output 04/25/18 04/26/18 19:00 07:00 Intake Total 400 ml 900 ml Output Total 300 ml Balance 400 ml 600 ml Intake IV Total 400 ml 900 ml Output Urine Total 300 ml # Bowel Movements 1 Laboratory Tests 04/25/18 09:00: White Blood Count 8.4, Red Blood Count 3.95L, Hemoglobin 11.3L, Hematocrit 36.5L , Mean Corpuscular Volume 92, Mean Corpuscular Hemoglobin 28.6, Mean Corpuscular Hemoglobin Concent 31.0L, Red Cell Distribution Width 14.7, Platelet Count 172, Mean Platelet Volume 6.2L, Neutrophils (%) (Auto) 61.7, Lymphocytes (%) (Auto) 24.1, Monocytes (%) (Auto) 8.7, Eosinophils (%) (Auto) 4.2H, Basophils (%) (Auto) 1.3, Prothrombin Time 11.3, Prothromb Time International Ratio 1.1, Activated Partial Thromboplast Time 27, Sodium Level 147H, Potassium Level 4.5, Chloride Level 108H, Carbon Dioxide Level 33H, Anion Gap 6, Blood Urea Nitrogen 32H, Creatinine 2.5H, Estimat Glomerular Filtration Rate , Glucose Level 122H, Calcium Level 9.3, Total Bilirubin 0.6, Aspartate Amino Transf (AST/SGOT) 43H, Alanine Aminotransferase (ALT/SGPT) 10L, Alkaline Phosphatase 169H, Total Protein 7.3, Albumin 2.7L, Globulin 4.6, Albumin/ Globulin Ratio 0.6L, Lipase 246 04/25/18 09:47: Urine Color Yellow, Urine Appearance Clear, Urine pH 5, Urine Specific [place] 1.020, Urine Protein 3+H, Urine Glucose (UA) Negative, Urine Ketones 1+H, Urine Blood 2+H, Urine Nitrite Negative, Urine Bilirubin Negative, Urine Urobilinogen 1H, Urine Leukocyte Esterase 1+H, Urine RBC 5-10H, Urine WBC 0-2, Urine Squamous Epithelial Cells Occasional, Urine Bacteria Occasional, Urine Mucus FewH 04/26/18 05:10: White Blood Count 7.4, Red Blood Count 3.58L, Hemoglobin 10.3L, Hematocrit 32.8L , Mean Corpuscular Volume 91, Mean Corpuscular Hemoglobin 28.9, Mean Corpuscular Hemoglobin Concent 31.5L, Red Cell Distribution Width 14.5, Platelet Count 165, Mean Platelet Volume 5.8L, Neutrophils (%) (Auto) 57.8, Lymphocytes (%) (Auto) 25.2, Monocytes (%) (Auto) 10.3H, Eosinophils (%) (Auto) 5.5H, Basophils (%) (Auto) 1.2, Prothrombin Time 11.4, Prothromb Time International Ratio 1.1, Activated Partial Thromboplast Time 28, Sodium Level 147H, Potassium Level 3.7, Chloride Level 109H, Carbon Dioxide Level 31, Anion Gap 7, Blood Urea Nitrogen 28H, Creatinine 2.1H, Estimat Glomerular Filtration Rate , Glucose Level 112H, Calcium Level 8.8, Total Bilirubin 0.5, Aspartate Amino Transf (AST/SGOT) 18, Alanine Aminotransferase (ALT/SGPT) 12, Alkaline Phosphatase 158H, Total Protein 6.6, Albumin 2.5L, Globulin 4.1, Albumin/ Globulin Ratio 0.6L, Phosphorus Level 3.3, Magnesium Level 1.8 Height (Feet): 5 Height (Inches): 6.00 Weight (Pounds): 214 General Appearance: no apparent distress, alert Neck: non-tender, supple Cardiovascular: normal rate, regular rhythm Respiratory/Chest: lungs clear, normal breath sounds Abdomen: non tender, soft Extremities: normal range of motion, non-tender Edema: no edema noted Arm (L), no edema noted Arm (R), no edema noted Leg (L), no edema noted Leg (R), no edema noted Pedal (L), no edema noted Pedal (R), no edema noted Generalized Neurologic: responsive Skin: warm/dry Lymphatic: normal anterior cervical (L), normal anterior cervical (R), normal posterior cervical (L), normal posterior cervical (R), normal submandibular (L) , normal submandibular (R), normal supraclavicular (L), normal supraclavicular ( R), normal axillary (L), normal axillary (R), normal inguinal (L), normal inguinal (R), normal other Shelby Arrington MD Apr 26, 2018 08:56
--- NOTE | 2018-04-26 09:30 | Procedure Note ---
DATE OF PROCEDURE: 04/26/2018 SURGEON: Olegario Barrera M.D. PROCEDURE: Upper endoscopy with PEG placement. ANESTHESIOLOGIST: Brooke HERNANDEZ. INSTRUMENT: Olympus adult flexible upper endoscope. INDICATION: Dysphagia. REASON FOR PROCEDURE: The procedure, risks, benefits, and possible consequences, including hemorrhage, aspiration, perforation and infection, and alternative treatments, were explained to the patient/legal guardian by Dr. Olegario Barrera and the patient/legal guardian understood and accepted these risks. PROCEDURE IN DETAIL: After informed consent was obtained and the patient was adequately sedated, Olympus upper endoscope was advanced from mouth into the second portion of the duodenum and retroflexion was performed in the stomach. Under endoscopic guidance, under sterile condition, a 20-Kinyarwanda pull type of G-tube was successfully placed in the epigastric area. The distance from the tip of the tube to skin was 2.5 cm in size. The patient tolerated the procedure very well without any complication. SUMMARY OF FINDINGS: Status post successful PEG placement. RECOMMENDATIONS: 1. Abdominal binder. 2. Elevate the head of the bed at all times. 3. G-tube flush. 4. G-tube care. 5. Start tube feeding later today. 6. The patient received a dose of clindamycin prior to this procedure. I want to thank Dr. Arrington, for this kind referral. Olegario Barrera M.D. DR: OLIVIA JOB#: [id number] CC: Shelby Arrington M.D.; Fax#: [phone]
[2018-04-26] MEDS: Venlafaxine XR 37.5mg cap ORAL SCH (10:40)
[2018-04-26] MEDS: Multivitamin w/Minerals tab ORAL SCH (10:40)
[2018-04-26] MEDS: Levodopa/Carbidopa 25/100 tab ORAL SCH ×3 (10:41→18:02)
[2018-04-26] MEDS: Pantoprazole Inj IVP SCH (10:41)
--- NOTE | 2018-04-26 12:41 | 48 Hour Post Anesthesia Eval ---
Post Anesthesia Evaluation Procedure: EGD and PEG Date of Evaluation: Apr 26, 2018 Time of Evaluation: 09:20 Blood Pressure Systolic: 132 0: 69 Pulse Rate: 71 Respiratory Rate: 16 Temperature (Fahrenheit): 97.0 O2 Sat by Pulse Oximetry: 98 Airway: patent Nausea: No Vomiting: No Pain Intensity: 0 Hydration Status: adequate Cardiopulmonary Status: stable Mental Status/LOC: patient returned to baseline Follow-up Care/Observations: per hospitalist Post-Anesthesia Complications: none Brooke Fountain CRNA Apr 26, 2018 12:41
--- NOTE | 2018-04-26 13:47 | NUR ---
RD ASSESSMENT & RECOMMENDATIONS SEE CARE ACTIVITY FOR COMPLETE ASSESSMENT DAILY ESTIMATED NEEDS: Needs based on Suspected wounds, overweight, cardiac 77kg adj 23-28 kcals/kg 2500-0549 total kcals 1.25-1.5 g protein/kg 96-116 g total protein 20-25 mL/kg 6437-6918 total fluid mLs NUTRITION DIAGNOSIS: * Swallowing difficulty R/T dysphagia, h/o CVA, evidenced by s/p PEG placement * Increased protein needs r/t wound healing as evidenced by pt is suspected sacral and heel wounds. CURRENT TF:Vital AF 1.2 @60ml ENTERAL NUTRITION RECOMMENDATIONS: Glucerna 1.5 @50ml /hr x24 hrs to provide 1200ml, 1800 kcal, 99g prot, 911ml free H2O - W/ GI access, start Glucerna 1.5 @20ml/hr for 6 hrs - Advance as tolerated 10ml every 4-6 hrs to goal - Flush per MD/ HOB over 30 degrees ADDITIONAL RECOMMENDATIONS: 1) Monitor BGs, need for SSI 2) Rec test equipment mechanic evaluation for sacral and heel wound -> add Jose 1pkt BID 3) Monitor lytes, replete as needed 4) WT per RD: 197.3# on calibrated bed scale .
--- NOTE | 2018-04-26 14:38 | Cardiac Electrophysiology PN ---
Subjective Subjective [id number] Objective Last 24 Hour Vital Signs Date Time Temp Pulse Resp B/P (MAP) Pulse Ox O2 Delivery O2 Flow Rate FiO2 04/26/18 14:05 78 163/91 04/26/18 12:41 71 16 98 04/26/18 11:05 97.5 78 163/91 (115) 94 04/26/18 10:41 71 04/26/18 09:20 71 132/69 (90) 98 04/26/18 09:02 97.0 68 16 132/69 96 Nasal Cannula 2 04/26/18 09:00 Nasal Cannula 2.0 04/26/18 08:50 66 16 121/86 96 Nasal Cannula 2 04/26/18 08:38 66 16 96 04/26/18 08:34 65 16 114/63 96 Nasal Cannula 2 04/26/18 08:29 66 16 106/61 96 Nasal Cannula 2 04/26/18 08:24 97.0 66 16 97/60 96 Nasal Cannula 2 04/26/18 05:46 67 127/65 04/26/18 04:00 96.8 67 20 127/65 (85) 99 04/26/18 00:00 97.0 70 20 137/71 (93) 95 04/26/18 00:00 75 120/69 04/25/18 21:00 Nasal Cannula 2.0 04/25/18 20:00 97.0 75 20 120/69 (86) 98 04/25/18 17:09 73 141/71 04/25/18 16:00 97.7 73 19 141/71 (94) 99 Intake and Output 04/25/18 04/26/18 19:00 07:00 Intake Total 400 ml 900 ml Output Total 300 ml Balance 400 ml 600 ml IV Total 400 ml 900 ml Output Urine Total 300 ml # Bowel Movements 1 Laboratory Tests Test 04/26/18 05:10 White Blood Count 7.4 K/UL (4.8-10.8) Red Blood Count 3.58 M/UL (4.70-6.10) L Hemoglobin 10.3 G/DL (14.2-18.0) L Hematocrit 32.8 % (42.0-52.0) L Mean Corpuscular Volume 91 FL (80-99) Mean Corpuscular Hemoglobin 28.9 PG (27.0-31.0) Mean Corpuscular Hemoglobin Concent 31.5 G/DL (32.0-36.0) L Red Cell Distribution Width 14.5 % (11.6-14.8) Platelet Count 165 K/UL (150-450) Mean Platelet Volume 5.8 FL (6.5-10.1) L Neutrophils (%) (Auto) 57.8 % (45.0-75.0) Lymphocytes (%) (Auto) 25.2 % (20.0-45.0) Monocytes (%) (Auto) 10.3 % (1.0-10.0) H Eosinophils (%) (Auto) 5.5 % (0.0-3.0) H Basophils (%) (Auto) 1.2 % (0.0-2.0) Prothrombin Time 11.4 SEC (9.30-11.50) Prothromb Time International Ratio 1.1 (0.9-1.1) Activated Partial Thromboplast Time 28 SEC (23-33) Sodium Level 147 MMOL/L (136-145) H Potassium Level 3.7 MMOL/L (3.5-5.1) Chloride Level 109 MMOL/L (98-107) H Carbon Dioxide Level 31 MMOL/L (21-32) Anion Gap 7 mmol/L (5-15) Blood Urea Nitrogen 28 mg/dL (7-18) H Creatinine 2.1 MG/DL (0.55-1.30) H Estimat Glomerular Filtration Rate mL/min (>60) Glucose Level 112 MG/DL (74-106) H Calcium Level 8.8 MG/DL (8.5-10.1) Phosphorus Level 3.3 MG/DL (2.5-4.9) Magnesium Level 1.8 MG/DL (1.8-2.4) Total Bilirubin 0.5 MG/DL (0.2-1.0) Aspartate Amino Transf (AST/SGOT) 18 U/L (15-37) Alanine Aminotransferase (ALT/SGPT) 12 U/L (12-78) Alkaline Phosphatase 158 U/L (46-116) H Total Protein 6.6 G/DL (6.4-8.2) Albumin 2.5 G/DL (3.4-5.0) L Globulin 4.1 g/dL Albumin/Globulin Ratio 0.6 (1.0-2.7) L Gary Bay MD Apr 26, 2018 14:38
--- NOTE | 2018-04-26 15:25 | NUR ---
CASE MANAGEMENT:REVIEW BIBA FROM [facility] CC: FTT. NOT EATING SI: DEHYDRATION. FTT. HYPERNATREMIA 97.4 67 115/75 96% ON 3L/NC NA+147 BUN+32 CR+2.5 IS: 500CC NS BOLUS 1L NS BOLUS CHEST XRAY URINE REFLEX : TO MED/SURG INTERQUAL CRITERIA MET 04/26/18 IS: EGD AND PEG PLACEMENT ; MED/SURG
--- NOTE | 2018-04-26 16:15 | Consultation ---
DATE OF CONSULTATION: 04/26/2018 CARDIOLOGY CONSULTATION CONSULTING PHYSICIAN: Gary Bay M.D. REFERRING PHYSICIAN: Shelby Arrington M.D. REASON FOR CONSULTATION: Management of hypertension and atrial fibrillation. HISTORY OF PRESENT ILLNESS: The patient is an 87-year-old gentleman that I am quite familiar from the recent admissions to [facility]. The patient has history of hypertension and atrial fibrillation with rapid ventricular response as well as history of sepsis and congestive heart failure due to diastolic dysfunction with BNP of more than 6000 on admission two weeks ago. The patient's echocardiogram showed normal left ventricular systolic function. The patient also has history of anemia and stool guaiac positive, and had colonoscopy. The patient also had dysphagia, however, had refused PEG placement at that time. Subsequently, the patient was admitted and underwent PEG placement today. A Cardiology consultation was obtained for followup management. REVIEW OF SYSTEMS: Review of systems cannot be obtained. The patient is quite confused. PAST MEDICAL HISTORY: As mentioned above. FAMILY HISTORY: Noncontributory. SOCIAL HISTORY: He is [place]. Does not smoke or drink alcohol. PHYSICAL EXAMINATION: VITAL SIGNS: Show blood pressure 162/91, pulse 78, respirations 18, and temperature 97.5. HEAD AND NECK: Shows no JVD. LUNGS: Clear . CARDIOVASCULAR: S1 and S2 with no gallop or murmur. ABDOMEN: Status post PEG. EXTREMITIES: No pitting edema. LABORATORY AND DIAGNOSTIC DATA: His labs show white count of 7.4, hematocrit 10.7, hematocrit 32.8, and platelet count . Sodium 147, potassium 3.7, BUN of 28, creatinine of 2.1, and glucose of 112. INR is 1.1. ASSESSMENT AND PLAN: 1. History of atrial fibrillation with rapid ventricular response. Continue digoxin 0.25 mg daily and Cardizem 60 mg every 6 hours. I will check a digoxin level for further evaluation. The patient was on anticoagulation before and currently held for PEG placement. Start anticoagulation when okay with Dr. Barrera. 2. Hypertension. Continue Cardizem 60 mg every 6 hours. 3. History of congestive heart failure due to diastolic dysfunction. May need to add addition of Lasix. 4. Dysphagia, status post PEG placement. 5. Parkinson's dementia. 6. History of left hip surgery. Thank you very much, Dr. Arrington, for allowing me to participate in the care of this patient. Please do not hesitate to contact me for any questions regarding my evaluation. Sincerely, Gary Bay M.D. DR: Remy JOB#: [id number] CC:
--- NOTE | 2018-04-26 18:24 | NUR ---
NURSE NOTES: notified dr Roman regarding patient not tolerating Vital AF 1.[address] Barrera, MISAEL mercado made aware and arranged a consult with civil structural designer Lucrecia who ordered Glucerna 1.5 starting at 50cc/hr, and increase only 10cc after 6 hours from the start of new TF, as the G Tube was just inserted today in am. Romeo Roman asked nurse to notify [facility] regarding delay of discharge from today to tomorrow. Notified REJI Valle from the facility.
--- NOTE | 2018-04-26 19:30 | NUR ---
NURSE NOTES: RECEIVED PATIENT LYING IN BED, AWAKE, ALERT/ORIENTED TO SELF, NON VERBAL/MUMBLES, UNABLE TO FOLLOW SIMPLE COMMANDS. S/P PEG PLACEMENT/BINDER REINFORCED. NO SIGNS AND SYMPTOMS OF ACUTE CARDIO RESPIRATORY DISTRESS/SHORTNESS OF BREATH, NO EDEMA NOTED. NO REPORT OF GI DISCOMFORT, TOLERATING FEEDING, NO GASTRIC RESIDUAL ASPIRATED VIT G TUBE. COMFORT CARE PROVIDED, REPOSITIONED, TOLERATED WELL. SIDE RAILS UP X3/BED IN LOWEST POSITION FOR SAFETY. CALL LIGHT WITHIN REACH. FREQUENT ROUNDING FOR SAFETY/NEEDS. NAD.
[2018-04-26] MEDS ORDERED: Heparin 5000 units/ml inj SUBQ SCH (21:00)
[2018-04-26] MEDS: Tamsulosin 0.4mg cap ORAL SCH (21:28)
[2018-04-26] MEDS: Atorvastatin 20mg tab ORAL SCH (21:28)
[2018-04-27] VITALS: BP 132/62
[2018-04-27] MEDS: dilTIAZem HCl 60mg tab ORAL SCH ×5 (00:20→23:56)
[2018-04-27 04:00] VITALS: BP 114/60
--- NOTE | 2018-04-27 06:19 | NUR ---
NURSE NOTES: RESTED WELL THROUGHOUT THE NIGHT, NO SIGNIFICANT CHANGE OF CONDITION NOTED. SAFETY MAINTAINED, NAD.
[2018-04-27 07:29] LABS: ANION GAP 7 mmol/L (5-15); BLOOD UREA NITROGEN 32 mg/dL (7-18); CALCIUM 8.8 MG/DL (8.5-10.1); CARBON DIOXIDE 31 MMOL/L (21-32); CHLORIDE 110 MMOL/L (98-107); CREATININE 2.2 MG/DL (0.55-1.30); POTASSIUM 4.1 MMOL/L (3.5-5.1); SODIUM 148 MMOL/L (136-145)
[2018-04-27 07:41] LABS: BASOPHILS % (AUTO) 0.6 % (0.0-2.0); EOSINOPHILS % (AUTO) 0.7 % (0.0-3.0); HEMATOCRIT 33.3 % (42.0-52.0); HEMOGLOBIN 10.4 G/DL (14.2-18.0); LYMPHOCYTES % (AUTO) 10.7 % (20.0-45.0); MEAN CORPUSCULAR VOLUME 91 FL (80-99); MONOCYTES % (AUTO) 7.5 % (1.0-10.0); NEUTROPHILS % (AUTO) 80.5 % (45.0-75.0); PLATELET COUNT 149 K/UL (150-450); RED BLOOD COUNT 3.64 M/UL (4.70-6.10); RED CELL DISTRIBUTION WIDTH 14.3 % (11.6-14.8); WHITE BLOOD COUNT 13.4 K/UL (4.8-10.8)
--- NOTE | 2018-04-27 07:54 | NUR ---
HAND-OFF: Report given to REJI OLIVAREZ.
[2018-04-27 08:00] VITALS: BP 121/61
--- NOTE | 2018-04-27 08:30 | NUR ---
NURSE NOTES: RECEIVED PATIENT LYING IN BED,AWAKE, NON VERBAL, HOB ELEVATED, ASPIRATION PRECAUTION, ALL NEEDS ANTICIPATED. NO SIGNS AND SYMPTOMS OF ACUTE CARDIO-RESPIRATORY DISTRESS/SHORTNESS OF BREATH, NO EDEMA NOTED. IV SITE INTACT TO LEFT WRIST, PATENT AND INTACT. NO SIGNS OF INFILTRATION, TOLERATING IV FLUIDS. ABDOMEN SOFT, AUDIBLE BOWEL SOUNDS, NO REPORT OF N/V/D. HEEL PROTECTORS INTACT. SIDE RAILS UP X3/BED IN LOWEST POSITION FOR SAFETY. CALL LIGHT WITHIN REACH. BED ALARM ACTIVATED. WILL CONT TO MONITOR.
[2018-04-27] MEDS: Venlafaxine XR 37.5mg cap ORAL SCH (08:52)
[2018-04-27] MEDS: Levodopa/Carbidopa 25/100 tab ORAL SCH ×3 (08:52→17:31)
[2018-04-27] MEDS: Multivitamin w/Minerals tab ORAL SCH (08:53)
--- NOTE | 2018-04-27 09:41 | NUR ---
NURSE NOTES: Dr. Arrington made aware, WBC 13.4 today. Afebrile
[2018-04-27] MEDS: Pantoprazole Inj IVP SCH (09:59)
--- NOTE | 2018-04-27 10:14 | General Progress Note ---
Assessment/Plan Problem List: (1) FTT (failure to thrive) in adult ICD Codes: R62.7 - Adult failure to thrive SNOMED: 358552852 (2) Dysphagia causing pulmonary aspiration with swallowing ICD Codes: R13.19 - Other dysphagia SNOMED: 01746304 (3) Dementia ICD Codes: F03.90 - Unspecified dementia without behavioral disturbance SNOMED: 31934688 (4) Anemia ICD Codes: D64.9 - Anemia, unspecified SNOMED: 469362333 (5) CKD (chronic kidney disease) ICD Codes: N18.9 - Chronic kidney disease, unspecified SNOMED: 710675865 Qualifiers: Qualified Codes: N18.9 - Chronic kidney disease, unspecified (6) Afib ICD Codes: I48.91 - Unspecified atrial fibrillation SNOMED: 57868881 Assessment/Plan s/p GT placement yesterday tolerating GTF GT care and flush dc planning per primary team Subjective ROS Limited/Unobtainable: No Allergies: Coded Allergies: MORPHINE (Verified Allergy, Unknown, 03/25/18) PENICILLINS (Verified Allergy, Unknown, 03/05/18) Objective Last 24 Hour Vital Signs Date Time Temp Pulse Resp B/P (MAP) Pulse Ox O2 Delivery O2 Flow Rate FiO2 04/27/18 09:00 Nasal Cannula 2.0 04/27/18 08:50 54 04/27/18 08:00 98.0 54 18 121/61 (81) 98 04/27/18 05:46 62 131/66 04/27/18 04:00 98.7 61 17 114/60 (78) 98 04/27/18 00:20 64 126/65 04/27/18 00:00 97.2 62 19 132/62 (85) 100 04/26/18 21:00 Nasal Cannula 2.0 04/26/18 20:00 97.8 102 19 101/52 (68) 94 04/26/18 18:05 71 121/85 04/26/18 16:00 98.5 71 121/85 (97) 95 04/26/18 14:05 78 163/91 04/26/18 12:41 71 16 98 04/26/18 11:05 97.5 78 163/91 (115) 94 04/26/18 10:41 71 Intake and Output 04/26/18 04/27/18 19:00 07:00 Intake Total 670 ml 840 ml Balance 670 ml 840 ml Intake Free Water 80 ml 480 ml IV Total 400 ml Tube Feeding 190 ml 360 ml # Voids 1 3 # Bowel Movements 1 Laboratory Tests 04/27/18 06:50: White Blood Count 13.4#H, Red Blood Count 3.64L, Hemoglobin 10.4L, Hematocrit 33.3L, Mean Corpuscular Volume 91, Mean Corpuscular Hemoglobin 28.5, Mean Corpuscular Hemoglobin Concent 31.2L, Red Cell Distribution Width 14.3, Platelet Count 149L, Mean Platelet Volume 7.5, Neutrophils (%) (Auto) 80.5H, Lymphocytes (%) (Auto) 10.7L, Monocytes (%) (Auto) 7.5, Eosinophils (%) (Auto) 0.7, Basophils (%) (Auto) 0.6, Sodium Level 148H, Potassium Level 4.1, Chloride Level 110H, Carbon Dioxide Level 31, Anion Gap 7, Blood Urea Nitrogen 32H, Creatinine 2.2H, Estimat Glomerular Filtration Rate , Glucose Level 161H, Calcium Level 8.8, Digoxin Level 2.5H Height (Feet): 5 Height (Inches): 6.00 Weight (Pounds): 214 General Appearance: no apparent distress EENT: normal ENT inspection Neck: supple Cardiovascular: normal rate Respiratory/Chest: decreased breath sounds Abdomen: normal bowel sounds, non tender, soft Extremities: non-tender Olegario Barrera MD Apr 27, 2018 10:14
[2018-04-27 12:00] VITALS: BP 125/63
--- NOTE | 2018-04-27 13:28 | Cardiac Electrophysiology PN ---
Assessment/Plan Assessment/Plan 1. History of atrial fibrillation with rapid ventricular response. Decrease digoxin to 0.125 daily as Dig level is 2.5 and Cardizem 60 mg every 6 hours. Resume Eliquis 5 bid if okay with Dr. Barrera. 2. Hypertension. Continue Cardizem 60 mg every 6 hours. 3. History of congestive heart failure due to diastolic dysfunction. May need to add addition of Lasix. 4. Dysphagia, status post PEG placement. 5. Parkinson's dementia. 6. History of left hip surgery. 7. Elevated WBC on ABx per Dr Cecy BURGOS RN Subjective Subjective Had PEG placement. No CP or SOB Objective Last 24 Hour Vital Signs Date Time Temp Pulse Resp B/P (MAP) Pulse Ox O2 Delivery O2 Flow Rate FiO2 04/27/18 12:32 52 125/63 04/27/18 12:00 97.4 52 18 125/63 (83) 98 04/27/18 09:00 Nasal Cannula 2.0 04/27/18 08:50 54 04/27/18 08:00 98.0 54 18 121/61 (81) 98 04/27/18 05:46 62 131/66 04/27/18 04:00 98.7 61 17 114/60 (78) 98 04/27/18 00:20 64 126/65 04/27/18 00:00 97.2 62 19 132/62 (85) 100 04/26/18 21:00 Nasal Cannula 2.0 04/26/18 20:00 97.8 102 19 101/52 (68) 94 04/26/18 18:05 71 121/85 04/26/18 16:00 98.5 71 121/85 (97) 95 04/26/18 14:05 78 163/91 Intake and Output 04/26/18 04/27/18 19:00 07:00 Intake Total 670 ml 890 ml Balance 670 ml 890 ml Intake Free Water 80 ml 480 ml IV Total 400 ml Tube Feeding 190 ml 410 ml # Voids 1 3 # Bowel Movements 1 Laboratory Tests Test 04/27/18 06:50 White Blood Count 13.4 K/UL (4.8-10.8) #H Red Blood Count 3.64 M/UL (4.70-6.10) L Hemoglobin 10.4 G/DL (14.2-18.0) L Hematocrit 33.3 % (42.0-52.0) L Mean Corpuscular Volume 91 FL (80-99) Mean Corpuscular Hemoglobin 28.5 PG (27.0-31.0) Mean Corpuscular Hemoglobin Concent 31.2 G/DL (32.0-36.0) L Red Cell Distribution Width 14.3 % (11.6-14.8) Platelet Count 149 K/UL (150-450) L Mean Platelet Volume 7.5 FL (6.5-10.1) Neutrophils (%) (Auto) 80.5 % (45.0-75.0) H Lymphocytes (%) (Auto) 10.7 % (20.0-45.0) L Monocytes (%) (Auto) 7.5 % (1.0-10.0) Eosinophils (%) (Auto) 0.7 % (0.0-3.0) Basophils (%) (Auto) 0.6 % (0.0-2.0) Sodium Level 148 MMOL/L (136-145) H Potassium Level 4.1 MMOL/L (3.5-5.1) Chloride Level 110 MMOL/L (98-107) H Carbon Dioxide Level 31 MMOL/L (21-32) Anion Gap 7 mmol/L (5-15) Blood Urea Nitrogen 32 mg/dL (7-18) H Creatinine 2.2 MG/DL (0.55-1.30) H Estimat Glomerular Filtration Rate mL/min (>60) Glucose Level 161 MG/DL (74-106) H Calcium Level 8.8 MG/DL (8.5-10.1) Digoxin Level 2.5 NG/ML (0.5-2.0) H Objective HEAD AND NECK: Shows no JVD. LUNGS: Clear . CARDIOVASCULAR: S1 and S2 with no gallop or murmur. ABDOMEN: Status post PEG. EXTREMITIES: No pitting edema. Gary Bay MD Apr 27, 2018 13:28
--- NOTE | 2018-04-27 13:51 | Infectious Diseases Prog Note ---
Assessment/Plan Problems: (1) Leukocytosis Assessment & Plan: rule out infectious etiology, will send blood culture x2, UA and obtain CXR to rule out pneumonia. will start doxycycline and aztreonam empirically pending cultures (2) PEG (percutaneous endoscopic gastrostomy) status Assessment & Plan: was placed yesterday, no sign of infection around it, continue local care as per protocol (3) STUART (acute kidney injury) Assessment & Plan: suspect dehydration VS ureter obstruction due to renal mass , continue fluids for hydration, avoid nephrotoxics (4) Renal mass, right Assessment & Plan: poor candidate for surgery (5) FTT (failure to thrive) in adult Assessment & Plan: continue tube feeding dietitian is following Subjective Allergies: Coded Allergies: MORPHINE (Verified Allergy, Unknown, 03/25/18) PENICILLINS (Verified Allergy, Unknown, 03/05/18) Objective Vital Signs Last 24 Hour Vital Signs Date Time Temp Pulse Resp B/P (MAP) Pulse Ox O2 Delivery O2 Flow Rate FiO2 04/27/18 12:32 52 125/63 04/27/18 12:00 97.4 52 18 125/63 (83) 98 04/27/18 09:00 Nasal Cannula 2.0 04/27/18 08:50 54 04/27/18 08:00 98.0 54 18 121/61 (81) 98 04/27/18 05:46 62 131/66 04/27/18 04:00 98.7 61 17 114/60 (78) 98 04/27/18 00:20 64 126/65 04/27/18 00:00 97.2 62 19 132/62 (85) 100 04/26/18 21:00 Nasal Cannula 2.0 04/26/18 20:00 97.8 102 19 101/52 (68) 94 04/26/18 18:05 71 121/85 04/26/18 16:00 98.5 71 121/85 (97) 95 04/26/18 14:05 78 163/91 Height (Feet): 5 Height (Inches): 6.00 Weight (Pounds): 214 Laboratory Tests Test 04/27/18 06:50 White Blood Count 13.4 K/UL (4.8-10.8) #H Red Blood Count 3.64 M/UL (4.70-6.10) L Hemoglobin 10.4 G/DL (14.2-18.0) L Hematocrit 33.3 % (42.0-52.0) L Mean Corpuscular Volume 91 FL (80-99) Mean Corpuscular Hemoglobin 28.5 PG (27.0-31.0) Mean Corpuscular Hemoglobin Concent 31.2 G/DL (32.0-36.0) L Red Cell Distribution Width 14.3 % (11.6-14.8) Platelet Count 149 K/UL (150-450) L Mean Platelet Volume 7.5 FL (6.5-10.1) Neutrophils (%) (Auto) 80.5 % (45.0-75.0) H Lymphocytes (%) (Auto) 10.7 % (20.0-45.0) L Monocytes (%) (Auto) 7.5 % (1.0-10.0) Eosinophils (%) (Auto) 0.7 % (0.0-3.0) Basophils (%) (Auto) 0.6 % (0.0-2.0) Sodium Level 148 MMOL/L (136-145) H Potassium Level 4.1 MMOL/L (3.5-5.1) Chloride Level 110 MMOL/L (98-107) H Carbon Dioxide Level 31 MMOL/L (21-32) Anion Gap 7 mmol/L (5-15) Blood Urea Nitrogen 32 mg/dL (7-18) H Creatinine 2.2 MG/DL (0.55-1.30) H Estimat Glomerular Filtration Rate mL/min (>60) Glucose Level 161 MG/DL (74-106) H Calcium Level 8.8 MG/DL (8.5-10.1) Digoxin Level 2.5 NG/ML (0.5-2.0) H Current Medications Medications (Trade) Dose Ordered Sig/Colin Route PRN Reason Start Time Stop Time Status Last Admin Dose Admin Acetaminophen (Tylenol) 650 mg Q6H PRN ORAL Mild Pain/Temp > 100.5 04/25/18 13:30 05/25/18 13:29 Apixaban (Eliquis) 2.5 mg BID ORAL 04/27/18 18:00 05/27/18 17:59 Atorvastatin Calcium (Lipitor) 20 mg BEDTIME ORAL 04/25/18 21:00 05/25/18 20:59 1/4/19 21:28 Carbidopa/Levodopa (Sinemet 25/100) 1 tab THREE TIMES A DAY ORAL 04/25/18 13:30 05/25/18 13:29 04/27/18 12:31 Digoxin (Lanoxin) 0.125 mg DAILY ORAL 04/28/18 09:00 05/26/18 08:59 Diltiazem HCl (Cardizem) 60 mg EVERY 6 HOURS ORAL 04/25/18 18:00 05/25/18 17:59 04/27/18 12:32 Gabapentin (Neurontin) 100 mg QHS ORAL 04/25/18 21:00 05/25/18 20:59 04/26/18 21:28 Multivitamins Therapeutic (Therapeutic Multivitamin) 1 ea DAILY ORAL 04/26/18 09:00 05/26/18 08:59 04/27/18 08:53 Ondansetron HCl (Zofran) 4 mg Q4H PRN IVP Nausea & Vomiting 04/25/18 13:30 05/25/18 13:29 Pantoprazole (Protonix) 40 mg DAILY IVP 04/26/18 09:00 05/26/18 08:59 04/27/18 09:59 Tamsulosin HCl (Flomax) 0.4 mg BEDTIME ORAL 04/25/18 21:00 05/25/18 20:59 04/26/18 21:28 Tramadol HCl (Ultram) 50 mg Q8H PRN ORAL Moderate Pain (Pain Scale 4-6) 04/25/18 13:30 05/02/18 13:29 Venlafaxine HCl (Effexor-XR) 37.5 mg DAILY ORAL 04/26/18 09:00 05/26/18 08:59 04/27/18 08:52 Srini Sam M.D. Apr 27, 2018 13:51
[2018-04-27 13:57] LABS: APPEARANCE,URINE CLEAR; BILIRUBIN, URINE NEGATIVE (NEGATIVE); GLUCOSE, URINE (UA) NEGATIVE (NEGATIVE); KETONES,URINE 1+ (NEGATIVE); LEUKOCYTE ESTERASE ,URINE NEGATIVE (NEGATIVE); NITRITE,URINE NEGATIVE (NEGATIVE); PH,URINE 5 (4.5-8.0); PROTEIN,URINE 3+ (NEGATIVE); UROBILINOGEN,URINE 1 MG/DL (0.0-1.0)
[2018-04-27 13:58] LABS: COLOR,URINE YELLOW
--- NOTE | 2018-04-27 14:17 | NUR ---
NURSE NOTES: sent urine for urinalysis.
[2018-04-27] MEDS: Aztreonam Inj 1 GM in D5W 55 ML IVPB SCH ×2 (14:51→21:09)
--- NOTE | 2018-04-27 15:53 | Diagnostic Imaging Report ---
History: COUGH Exam: XR CXR 1 VIEW 2 total images to include the entire chest Comparison: 04/25/2018 FINDINGS: Mild patchy opacity suggested at the right more than left base may represent areas of atelectasis with developing infiltrate not excluded. The cardiac and mediastinal contours appear unchanged. IMPRESSION: Mild patchy opacity suggested at the right more than left base may represent areas of atelectasis with developing infiltrate not excluded.
[2018-04-27 15:54] VITALS: BP 132/66
[2018-04-27] MEDS: Doxycycline Hyclate 100 MG in D5W 110 ML IV SCH (16:22)
[2018-04-27] MEDS: Eliquis 2.5mg tablet ORAL SCH (17:31)
--- NOTE | 2018-04-27 17:45 | Consultation ---
DATE OF CONSULTATION: 04/27/2018 CONSULTING PHYSICIAN: Srini Sam M.D. REFERRING PHYSICIAN: Shelby Arrington M.D. REASON FOR CONSULTATION: Leukocytosis, rule out infectious etiology, recommendation for antibiotics treatment, status post PEG tube placement. HISTORY OF PRESENT ILLNESS: The patient is an 87-year-old male, who is a resident of [facility] and was sent to [facility] for placement of PEG tube. The patient has not been eating much in the custodial facility with cough and dysphagia, and failed swallow evaluation previously. Family decided to have a PEG tube placed for nutrition and feeding. The patient underwent PEG tube placement yesterday with no complication. Today, he was found to have leukocytosis which is concerning for infection, so Infectious Disease consultation was requested for antibiotics treatment and further evaluation of his leukocytosis. As of note, the patient is poor historian and cannot provide good history at this point. History was mainly obtained from the medical record and nursing staff. REVIEW OF SYSTEMS: Unable to obtain. The patient is poor historian and cannot provide good history. PAST MEDICAL HISTORY: Significant for Parkinson disease, dementia, acute renal failure, trochanteric fracture of the left femur, atrial fibrillation, hyperlipidemia, depression, neuropathy, CVA, renal mass, history of GI bleeding. PAST SURGICAL HISTORY: He had left femur open reduction and internal fixation surgery and PEG tube placement on this admission. FAMILY HISTORY: Not contributory. ALLERGIES: Allergic to penicillin and morphine. SOCIAL HISTORY: He is a resident of [facility]. No recent drugs, tobacco, or alcohol. MEDICATIONS: The patient on digoxin, apixaban, multivitamin, pantoprazole, Effexor, Lipitor, Neurontin, Flomax, Cardizem, Tylenol, Sinemet, Zofran, and Ultram. LABORATORY DATA: Laboratories showed white count of 13.4, hemoglobin of 10.4, hematocrit 33.3, platelet count of 149,000. BUN of 32, creatinine of 2.2, sodium 148. AST of 43, ALT of 10. Urinalysis showed +1 leukocyte esterase, few mucus in the urine with wbc's 0-2. IMAGING: Chest x-ray showed no acute finding. Venous Doppler showed patent deep vein system on the right leg and acute thrombus in the popliteal vein. PHYSICAL EXAMINATION: VITAL SIGNS: Temperature 97.4, pulse 52, respiration 18, blood pressure 125/63, saturation 98% on 2 L nasal cannula. GENERAL: An elderly male, lying in bed, awake, alert, responds to verbal commands, not in acute distress. HEENT: Normocephalic and atraumatic. Pupils reactive to light. Facial droop with dry oral mucosa and sticky mucus secretion all around his mouth. No thrush or ulceration. NECK: Supple. No lymphadenopathy. CARDIOVASCULAR: He has systolic murmur in the aortic valve. Regular rate and rhythm. No gallop. LUNGS: He had diminished breathing sounds at the bases. No wheezing or rhonchi. Normal breathing efforts. ABDOMEN: Soft, obese, nontender, nondistended. PEG tube site looks okay with no bleeding or drainage. EXTREMITIES: No edema or cyanosis. SKIN: No rash or hives. ASSESSMENT AND RECOMMENDATION: 1. Leukocytosis, rule out infectious etiology. We will send blood culture x2, urinalysis, and obtain chest x-ray to rule out pneumonia. We will start the patient on doxycycline and aztreonam empiric coverage for now pending his cultures and image. 2. PEG tube status, was placed yesterday. No sign of infection around it. Continue local wound care as per protocol. 3. Acute renal failure, suspect dehydration versus ureter obstruction due to renal mass. Continue fluids for hydration. Avoid nephrotoxic medicine. May need renal ultrasound. 4. Renal mass on the right. The patient was poor candidate for surgery. He was evaluated by Urology in his previous admission. Follow up with Urology. 5. Failure to thrive. Continue tube feeding. Dietitian is following. Thank you for the consult. ID will continue to follow. Srini Sam M.D. DR: Malia JOB#: [id number] CC:
--- NOTE | 2018-04-27 19:13 | NUR ---
HAND-OFF: Report given to Jasbir.
--- NOTE | 2018-04-27 19:30 | NUR ---
NURSE NOTES: Received patient on bed sleeping, no s/s of any distress. IV line patent and intact, GT patent and intact. Bed in low position and locked, will continue to monitor.
[2018-04-27 20:00] VITALS: BP 111/54
[2018-04-27] MEDS: Tamsulosin 0.4mg cap ORAL SCH (21:09)
[2018-04-27] MEDS: Atorvastatin 20mg tab ORAL SCH (21:09)
[2018-04-27] MEDS ORDERED: Tubing IV Secondary IV ONE (22:40)
[2018-04-27] MEDS ORDERED: 1/2 NS 1000ml IV ONE (22:40)
[2018-04-27] MEDS ORDERED: NS 275ml ONE (22:41)
--- NOTE | 2018-04-27 22:41 | General Progress Note ---
Assessment/Plan Status: stable Assessment/Plan 1. Dysphagia s/p Peg Tube placement - D/C planning back to [facility] in 1-2 days. 2. Leukocytosis - check CXR, U/A and urine cx, blood CX. ID is following. 3. Lt leg acute popliteal thrombosis - on Eliquis 2.5 mg one po bid. on low dose Eliquis b/c of risk of bleeding. 4. H/O A Fib with rapid ventricular response - on digoxin and Cardiazm. 5. STUART - 2nd to dehydration. may increase water through the G tube. 6. Parkinson dx - cont home meds. 7. 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 8. H/o CVA 9. H/o Diastolic CHF - stable Subjective Date patient seen: Apr 27, 2018 Time patient seen: 02:30 Constitutional: Reports: weakness HEENT: Reports: no symptoms Cardiovascular: Reports: no symptoms Respiratory: Reports: no symptoms Gastrointestinal/Abdominal: Reports: no symptoms Genitourinary: Reports: no symptoms Neurologic/Psychiatric: Reports: no symptoms Endocrine: Reports: no symptoms Hematologic/Lymphatic: Reports: no symptoms Allergies: Coded Allergies: MORPHINE (Verified Allergy, Unknown, 03/25/18) PENICILLINS (Verified Allergy, Unknown, 03/05/18) Subjective He is s/p peg tube placement yesterday. This morning his wbc increased. His Lower ext U/S showed Lt acute thrombosis of popliteal artery. no fever or chills. no sob or chest pain. Objective Last 24 Hour Vital Signs Date Time Temp Pulse Resp B/P (MAP) Pulse Ox O2 Delivery O2 Flow Rate FiO2 04/27/18 21:00 Nasal Cannula 2.0 04/27/18 20:00 98.3 53 20 111/54 (73) 95 04/27/18 17:31 64 132/66 04/27/18 15:54 98.2 64 18 132/66 (88) 96 04/27/18 12:32 52 125/63 04/27/18 12:00 97.4 52 18 125/63 (83) 98 04/27/18 09:00 Nasal Cannula 2.0 04/27/18 08:50 54 04/27/18 08:00 98.0 54 18 121/61 (81) 98 04/27/18 05:46 62 131/66 04/27/18 04:00 98.7 61 17 114/60 (78) 98 04/27/18 00:20 64 126/65 04/27/18 00:00 97.2 62 19 132/62 (85) 100 Intake and Output 04/26/18 04/27/18 19:00 07:00 Intake Total 670 ml 890 ml Balance 670 ml 890 ml Intake Free Water 80 ml 480 ml IV Total 400 ml Tube Feeding 190 ml 410 ml # Voids 1 3 # Bowel Movements 1 Laboratory Tests 04/27/18 06:50: White Blood Count 13.4#H, Red Blood Count 3.64L, Hemoglobin 10.4L, Hematocrit 33.3L, Mean Corpuscular Volume 91, Mean Corpuscular Hemoglobin 28.5, Mean Corpuscular Hemoglobin Concent 31.2L, Red Cell Distribution Width 14.3, Platelet Count 149L, Mean Platelet Volume 7.5, Neutrophils (%) (Auto) 80.5H, Lymphocytes (%) (Auto) 10.7L, Monocytes (%) (Auto) 7.5, Eosinophils (%) (Auto) 0.7, Basophils (%) (Auto) 0.6, Sodium Level 148H, Potassium Level 4.1, Chloride Level 110H, Carbon Dioxide Level 31, Anion Gap 7, Blood Urea Nitrogen 32H, Creatinine 2.2H, Estimat Glomerular Filtration Rate , Glucose Level 161H, Calcium Level 8.8, Digoxin Level 2.5H 04/27/18 13:30: Urine Color Yellow, Urine Appearance Clear, Urine pH 5, Urine Specific [place] 1.020, Urine Protein 3+H, Urine Glucose (UA) Negative, Urine Ketones 1+H, Urine Blood Negative, Urine Nitrite Negative, Urine Bilirubin Negative, Urine Urobilinogen 1H, Urine Leukocyte Esterase Negative, Urine RBC 0-2H, Urine WBC 0- 2, Urine Squamous Epithelial Cells Occasional, Urine Amorphous Sediment FewH, Urine Bacteria Occasional, Urine Fine Granular Casts 0-2H Height (Feet): 5 Height (Inches): 6.00 Weight (Pounds): 214 General Appearance: no apparent distress EENT: normal ENT inspection Neck: non-tender, normal alignment, supple Cardiovascular: normal peripheral pulses, normal rate, regular rhythm Respiratory/Chest: chest wall non-tender, lungs clear, normal breath sounds Abdomen: normal bowel sounds, non tender, soft Extremities: normal range of motion, non-tender Edema: no edema noted Arm (L), no edema noted Arm (R), no edema noted Leg (L), no edema noted Leg (R), no edema noted Pedal (L), no edema noted Pedal (R), no edema noted Generalized Neurologic: responsive Skin: warm/dry Lymphatic: normal anterior cervical (L), normal anterior cervical (R), normal posterior cervical (L), normal posterior cervical (R), normal submandibular (L) , normal submandibular (R), normal supraclavicular (L), normal supraclavicular ( R), normal axillary (L), normal axillary (R), normal inguinal (L), normal inguinal (R), normal other Shelby Arrington MD Apr 27, 2018 22:41
[2018-04-28] VITALS: BP 109/53
[2018-04-28] MEDS: Doxycycline Hyclate 100 MG in D5W 110 ML IV SCH ×2 (02:31→15:10)
[2018-04-28 04:00] VITALS: BP 149/71
[2018-04-28] MEDS: Aztreonam Inj 1 GM in D5W 55 ML IVPB SCH ×3 (05:20→21:14)
[2018-04-28] MEDS: dilTIAZem HCl 60mg tab ORAL SCH ×3 (05:20→17:18)
--- NOTE | 2018-04-28 06:22 | General Progress Note ---
Assessment/Plan Problem List: (1) FTT (failure to thrive) in adult ICD Codes: R62.7 - Adult failure to thrive SNOMED: 868817520 (2) Dysphagia causing pulmonary aspiration with swallowing ICD Codes: R13.19 - Other dysphagia SNOMED: 65683464 (3) Dementia ICD Codes: F03.90 - Unspecified dementia without behavioral disturbance SNOMED: 97753921 (4) Anemia ICD Codes: D64.9 - Anemia, unspecified SNOMED: 985934831 (5) CKD (chronic kidney disease) ICD Codes: N18.9 - Chronic kidney disease, unspecified SNOMED: 405321274 Qualifiers: Qualified Codes: N18.9 - Chronic kidney disease, unspecified (6) Afib ICD Codes: I48.91 - Unspecified atrial fibrillation SNOMED: 49388055 Assessment/Plan s/p GT placement tolerating GTF GT care and flush leukocytosis work up noticed fu CBC abx per ID on Eliquis Subjective ROS Limited/Unobtainable: No Allergies: Coded Allergies: MORPHINE (Verified Allergy, Unknown, 03/25/18) PENICILLINS (Verified Allergy, Unknown, 03/05/18) Objective Last 24 Hour Vital Signs Date Time Temp Pulse Resp B/P (MAP) Pulse Ox O2 Delivery O2 Flow Rate FiO2 04/28/18 05:20 62 149/71 04/28/18 04:00 98.4 62 20 149/71 (97) 98 04/28/18 00:00 98.1 51 19 109/53 (71) 94 04/27/18 23:56 51 109/53 04/27/18 21:00 Nasal Cannula 2.0 04/27/18 20:00 98.3 53 20 111/54 (73) 95 04/27/18 17:31 64 132/66 04/27/18 15:54 98.2 64 18 132/66 (88) 96 04/27/18 12:32 52 125/63 04/27/18 12:00 97.4 52 18 125/63 (83) 98 04/27/18 09:00 Nasal Cannula 2.0 04/27/18 08:50 54 04/27/18 08:00 98.0 54 18 121/61 (81) 98 Intake and Output 04/27/18 04/28/18 19:00 07:00 Intake Total 1010 ml 1155 ml Output Total 600 ml 500 ml Balance 410 ml 655 ml Intake Free Water 300 ml 330 ml IV Total 110 ml 275 ml Tube Feeding 600 ml 550 ml Output Urine Total 600 ml 500 ml # Voids 1 Laboratory Tests 04/27/18 06:50: White Blood Count 13.4#H, Red Blood Count 3.64L, Hemoglobin 10.4L, Hematocrit 33.3L, Mean Corpuscular Volume 91, Mean Corpuscular Hemoglobin 28.5, Mean Corpuscular Hemoglobin Concent 31.2L, Red Cell Distribution Width 14.3, Platelet Count 149L, Mean Platelet Volume 7.5, Neutrophils (%) (Auto) 80.5H, Lymphocytes (%) (Auto) 10.7L, Monocytes (%) (Auto) 7.5, Eosinophils (%) (Auto) 0.7, Basophils (%) (Auto) 0.6, Sodium Level 148H, Potassium Level 4.1, Chloride Level 110H, Carbon Dioxide Level 31, Anion Gap 7, Blood Urea Nitrogen 32H, Creatinine 2.2H, Estimat Glomerular Filtration Rate , Glucose Level 161H, Calcium Level 8.8, Digoxin Level 2.5H 04/27/18 13:30: Urine Color Yellow, Urine Appearance Clear, Urine pH 5, Urine Specific [place] 1.020, Urine Protein 3+H, Urine Glucose (UA) Negative, Urine Ketones 1+H, Urine Blood Negative, Urine Nitrite Negative, Urine Bilirubin Negative, Urine Urobilinogen 1H, Urine Leukocyte Esterase Negative, Urine RBC 0-2H, Urine WBC 0- 2, Urine Squamous Epithelial Cells Occasional, Urine Amorphous Sediment FewH, Urine Bacteria Occasional, Urine Fine Granular Casts 0-2H Height (Feet): 5 Height (Inches): 6.00 Weight (Pounds): 214 General Appearance: no apparent distress EENT: normal ENT inspection Neck: supple Cardiovascular: normal rate Respiratory/Chest: decreased breath sounds Abdomen: normal bowel sounds, non tender, soft Extremities: non-tender Olegario Barrera MD Apr 28, 2018 06:22
--- NOTE | 2018-04-28 07:08 | NUR ---
HAND-OFF: Report given to Mignon MENDOZA.
[2018-04-28 07:18] LABS: BASOPHILS % (AUTO) 0.3 % (0.0-2.0); EOSINOPHILS % (AUTO) 1.9 % (0.0-3.0); HEMATOCRIT 31.8 % (42.0-52.0); HEMOGLOBIN 9.9 G/DL (14.2-18.0); LYMPHOCYTES % (AUTO) 12.1 % (20.0-45.0); MEAN CORPUSCULAR VOLUME 91 FL (80-99); MONOCYTES % (AUTO) 7.3 % (1.0-10.0); NEUTROPHILS % (AUTO) 78.5 % (45.0-75.0); PLATELET COUNT 127 K/UL (150-450); RED BLOOD COUNT 3.48 M/UL (4.70-6.10); RED CELL DISTRIBUTION WIDTH 14.9 % (11.6-14.8); WHITE BLOOD COUNT 12.2 K/UL (4.8-10.8)
[2018-04-28 07:34] LABS: ANION GAP 7 mmol/L (5-15); BLOOD UREA NITROGEN 35 mg/dL (7-18); CALCIUM 9.1 MG/DL (8.5-10.1); CARBON DIOXIDE 33 MMOL/L (21-32); CHLORIDE 109 MMOL/L (98-107); CREATININE 2.2 MG/DL (0.55-1.30); POTASSIUM 3.8 MMOL/L (3.5-5.1); SODIUM 149 MMOL/L (136-145)
[2018-04-28 08:00] VITALS: BP 118/65
--- NOTE | 2018-04-28 08:00 | NUR ---
NURSE NOTES: RECEIVED PATIENT LYING IN BED, A/A/OX1, NON-VERBAL, HOB ELEVATED, ASPIRATION PRECAUTION,NO SIGNS AND SYMPTOMS OF ACUTE CARDIO-RESPIRATORY DISTRESS, ON CONT O2 ON 2L VIA NC.NO EDEMA NOTED. IV SITE INTACT AND PATENT. ABDOMEN SOFT, AUDIBLE BOWEL SOUNDS, NO REPORT OF N/V/D. TOLERATING TUBE FEEDING WELL. GASTRIC RESIDUAL NOTED. HEEL PROTECTORS INTACT. SIDE RAILS UP X3/BED IN LOWEST POSITION FOR SAFETY. CALL LIGHT WITHIN REACH. BED ALARM ACTIVATED. WILL CONT TO MONITOR.
[2018-04-28] MEDS: Digoxin 0.125mg tab ORAL SCH (09:00)
[2018-04-28] MEDS: Venlafaxine XR 37.5mg cap ORAL SCH (09:20)
[2018-04-28] MEDS: Eliquis 2.5mg tablet ORAL SCH (09:20)
[2018-04-28] MEDS: Levodopa/Carbidopa 25/100 tab ORAL SCH ×3 (09:20→17:18)
[2018-04-28] MEDS: Multivitamin w/Minerals tab ORAL SCH (09:20)
[2018-04-28] MEDS: Pantoprazole Inj IVP SCH (09:22)
[2018-04-28 12:00] VITALS: BP 136/70
--- NOTE | 2018-04-28 12:13 | General Progress Note ---
Assessment/Plan Status: stable Assessment/Plan 1. Dysphagia s/p Peg Tube placement - D/C planning back to [facility] tomorrow. 2. Leukocytosis - improving. ID is following. cont IV abx. follow up cultures. 3. Lt leg acute popliteal thrombosis - D/C Eliquis 2.5 mg one po bid due to thrombocytopenia and Anemia. 4. H/O A Fib with rapid ventricular response - on digoxin and Cardiazm. Will D/ C Eliquis due to worsening H/H and thrombocytopenia with starting Eliquis. 5. STUART - 2nd to dehydration. may increase water through the G tube. 6. Parkinson dx - cont home meds. 7. 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 8. H/o CVA 9. H/o Diastolic CHF - stable Subjective Date patient seen: Apr 28, 2018 Time patient seen: 12:10 Constitutional: Reports: no symptoms HEENT: Reports: no symptoms Cardiovascular: Reports: no symptoms Respiratory: Reports: no symptoms Gastrointestinal/Abdominal: Reports: no symptoms Genitourinary: Reports: no symptoms Neurologic/Psychiatric: Reports: no symptoms Endocrine: Reports: no symptoms Hematologic/Lymphatic: Reports: no symptoms Allergies: Coded Allergies: MORPHINE (Verified Allergy, Unknown, 03/25/18) PENICILLINS (Verified Allergy, Unknown, 03/05/18) Subjective He is s/p peg tube placement. This morning his wbc improving. His Lower ext U/S showed Lt acute thrombosis of popliteal artery. no fever or chills. no sob or chest pain. Objective Last 24 Hour Vital Signs Date Time Temp Pulse Resp B/P (MAP) Pulse Ox O2 Delivery O2 Flow Rate FiO2 04/28/18 09:00 51 04/28/18 08:55 Nasal Cannula 2.0 04/28/18 08:00 97.5 51 18 118/65 (82) 98 04/28/18 05:20 62 149/71 04/28/18 04:00 98.4 62 20 149/71 (97) 98 04/28/18 00:00 98.1 51 19 109/53 (71) 94 04/27/18 23:56 51 109/53 04/27/18 21:00 Nasal Cannula 2.0 04/27/18 20:00 98.3 53 20 111/54 (73) 95 04/27/18 17:31 64 132/66 1/5/19 15:54 98.2 64 18 132/66 (88) 96 04/27/18 12:32 52 125/63 Intake and Output 04/27/18 04/28/18 19:00 07:00 Intake Total 1010 ml 1205 ml Output Total 600 ml 500 ml Balance 410 ml 705 ml Intake Free Water 300 ml 330 ml IV Total 110 ml 275 ml Tube Feeding 600 ml 600 ml Output Urine Total 600 ml 500 ml # Voids 1 Laboratory Tests 04/27/18 13:30: Urine Color Yellow, Urine Appearance Clear, Urine pH 5, Urine Specific [place] 1.020, Urine Protein 3+H, Urine Glucose (UA) Negative, Urine Ketones 1+H, Urine Blood Negative, Urine Nitrite Negative, Urine Bilirubin Negative, Urine Urobilinogen 1H, Urine Leukocyte Esterase Negative, Urine RBC 0-2H, Urine WBC 0- 2, Urine Squamous Epithelial Cells Occasional, Urine Amorphous Sediment FewH, Urine Bacteria Occasional, Urine Fine Granular Casts 0-2H 04/28/18 05:15: White Blood Count 12.2H, Red Blood Count 3.48L, Hemoglobin 9.9L, Hematocrit 31.8L, Mean Corpuscular Volume 91, Mean Corpuscular Hemoglobin 28.4, Mean Corpuscular Hemoglobin Concent 31.0L, Red Cell Distribution Width 14.9H, Platelet Count 127L, Mean Platelet Volume 7.3, Neutrophils (%) (Auto) 78.5H, Lymphocytes (%) (Auto) 12.1L, Monocytes (%) (Auto) 7.3, Eosinophils (%) (Auto) 1.9, Basophils (%) (Auto) 0.3, Sodium Level 149H, Potassium Level 3.8, Chloride Level 109H, Carbon Dioxide Level 33H, Anion Gap 7, Blood Urea Nitrogen 35H, Creatinine 2.2H, Estimat Glomerular Filtration Rate , Glucose Level 182H, Calcium Level 9.1 Height (Feet): 5 Height (Inches): 6.00 Weight (Pounds): 214 General Appearance: no apparent distress EENT: normal ENT inspection Neck: non-tender, normal alignment, supple Cardiovascular: normal peripheral pulses, normal rate, regular rhythm Respiratory/Chest: lungs clear, normal breath sounds Abdomen: non tender, soft Extremities: normal range of motion, non-tender Edema: no edema noted Arm (L), no edema noted Arm (R), no edema noted Leg (L), no edema noted Leg (R), no edema noted Pedal (L), no edema noted Pedal (R), no edema noted Generalized Shelby Arrington MD Apr 28, 2018 12:12
--- NOTE | 2018-04-28 15:31 | NUR ---
NURSE NOTES: CALLED RT KRISTOPHER TO COLLECT SPUTUM CX/GS. KEPT HOB ELEVATED AND SUCTIONED ORALLY. WILL CONT TO MONITOR.
[2018-04-28 15:55] VITALS: BP 120/70
--- NOTE | 2018-04-28 16:03 | Cardiac Electrophysiology PN ---
Assessment/Plan Assessment/Plan 1. Atrial fibrillation with rapid ventricular response. On digoxin 0.125 daily and Cardizem 60 mg every 6 hours. Resume Eliquis 5 bid if okay with Dr. Barrera. 2. Hypertension. Continue Cardizem 60 mg every 6 hours. 3. History of congestive heart failure due to diastolic dysfunction. May need to add addition of Lasix. 4. Dysphagia, status post PEG placement. 5. Parkinson's dementia. 6. History of left hip surgery. 7. Elevated WBC on ABx per Dr Cecy BURGOS RN Subjective Subjective No events. DC planning Objective Last 24 Hour Vital Signs Date Time Temp Pulse Resp B/P (MAP) Pulse Ox O2 Delivery O2 Flow Rate FiO2 04/28/18 15:55 97.8 78 20 120/70 (87) 95 04/28/18 12:50 57 136/70 04/28/18 12:00 97.1 57 19 136/70 (92) 99 04/28/18 09:00 51 04/28/18 08:55 Nasal Cannula 2.0 04/28/18 08:00 97.5 51 18 118/65 (82) 98 04/28/18 05:20 62 149/71 04/28/18 04:00 98.4 62 20 149/71 (97) 98 04/28/18 00:00 98.1 51 19 109/53 (71) 94 04/27/18 23:56 51 109/53 04/27/18 21:00 Nasal Cannula 2.0 04/27/18 20:00 98.3 53 20 111/54 (73) 95 04/27/18 17:31 64 132/66 Intake and Output 04/27/18 04/28/18 18:59 06:59 Intake Total 1010 ml 1205 ml Output Total 600 ml 500 ml Balance 410 ml 705 ml Intake Free Water 300 ml 330 ml IV Total 110 ml 275 ml Tube Feeding 600 ml 600 ml Output Urine Total 600 ml 500 ml # Voids 1 Laboratory Tests Test 04/28/18 05:15 White Blood Count 12.2 K/UL (4.8-10.8) H Red Blood Count 3.48 M/UL (4.70-6.10) L Hemoglobin 9.9 G/DL (14.2-18.0) L Hematocrit 31.8 % (42.0-52.0) L Mean Corpuscular Volume 91 FL (80-99) Mean Corpuscular Hemoglobin 28.4 PG (27.0-31.0) Mean Corpuscular Hemoglobin Concent 31.0 G/DL (32.0-36.0) L Red Cell Distribution Width 14.9 % (11.6-14.8) H Platelet Count 127 K/UL (150-450) L Mean Platelet Volume 7.3 FL (6.5-10.1) Neutrophils (%) (Auto) 78.5 % (45.0-75.0) H Lymphocytes (%) (Auto) 12.1 % (20.0-45.0) L Monocytes (%) (Auto) 7.3 % (1.0-10.0) Eosinophils (%) (Auto) 1.9 % (0.0-3.0) Basophils (%) (Auto) 0.3 % (0.0-2.0) Sodium Level 149 MMOL/L (136-145) H Potassium Level 3.8 MMOL/L (3.5-5.1) Chloride Level 109 MMOL/L (98-107) H Carbon Dioxide Level 33 MMOL/L (21-32) H Anion Gap 7 mmol/L (5-15) Blood Urea Nitrogen 35 mg/dL (7-18) H Creatinine 2.2 MG/DL (0.55-1.30) H Estimat Glomerular Filtration Rate mL/min (>60) Glucose Level 182 MG/DL (74-106) H Calcium Level 9.1 MG/DL (8.5-10.1) Objective HEAD AND NECK: Shows no JVD. LUNGS: Clear . CARDIOVASCULAR: S1 and S2 with no gallop or murmur. ABDOMEN: Status post PEG. EXTREMITIES: No pitting edema. Gary Bay MD Apr 28, 2018 16:03
--- NOTE | 2018-04-28 17:02 | Infectious Diseases Prog Note ---
Assessment/Plan Problems: (1) Aspiration pneumonia Assessment & Plan: with productive cough, will send sputum culture , continue aztreonam and doxycycline empirically , aspiration precaution, keep HOB > 30 DEGREE (2) Leukocytosis Assessment & Plan: suspect due to pneumonia , await blood culture x2, continue doxycycline and aztreonam empirically pending cultures (3) PEG (percutaneous endoscopic gastrostomy) status Assessment & Plan: was placed recently , no sign of infection around it, continue local care as per protocol (4) STUART (acute kidney injury) Assessment & Plan: suspect dehydration VS ureter obstruction due to renal mass , continue fluids for hydration, avoid nephrotoxics (5) Renal mass, right Assessment & Plan: poor candidate for surgery (6) FTT (failure to thrive) in adult Assessment & Plan: continue tube feeding dietitian is following Subjective ROS Limited/Unobtainable: Yes Allergies: Coded Allergies: MORPHINE (Verified Allergy, Unknown, 03/25/18) PENICILLINS (Verified Allergy, Unknown, 03/05/18) Subjective he was awake but coughing phlegm, no fever or chills, no diarrhea, respond to verbal commands Objective Vital Signs Last 24 Hour Vital Signs Date Time Temp Pulse Resp B/P (MAP) Pulse Ox O2 Delivery O2 Flow Rate FiO2 04/28/18 15:55 97.8 78 20 120/70 (87) 95 04/28/18 12:50 57 136/70 04/28/18 12:00 97.1 57 19 136/70 (92) 99 04/28/18 09:00 51 04/28/18 08:55 Nasal Cannula 2.0 04/28/18 08:00 97.5 51 18 118/65 (82) 98 04/28/18 05:20 62 149/71 04/28/18 04:00 98.4 62 20 149/71 (97) 98 04/28/18 00:00 98.1 51 19 109/53 (71) 94 04/27/18 23:56 51 109/53 04/27/18 21:00 Nasal Cannula 2.0 04/27/18 20:00 98.3 53 20 111/54 (73) 95 04/27/18 17:31 64 132/66 Height (Feet): 5 Height (Inches): 6.00 Weight (Pounds): 214 General Appearance: WD/WN, no acute distress HEENT: normocephalic, atraumatic, anicteric, mucous membranes moist, PERRL, pharynx normal, supple, no JVD Respiratory/Chest: chest wall non-tender, no respiratory distress, no accessory muscle use, decreased breath sounds, crackles/rales Cardiovascular: normal peripheral pulses, normal rate, regular rhythm, no gallop/murmur, no JVD Abdomen: normal bowel sounds, soft, non tender, no organomegaly, non distended , no mass, no scars Extremities: no cyanosis, no clubbing Skin: no rash, no lesions, ulcers Neurologic/Psychiatric: alert, responsive Lymphatic: no neck adenopathy, no groin adenopathy Musculoskeletal: normal muscle bulk, no effusion Laboratory Tests Test 04/28/18 05:15 White Blood Count 12.2 K/UL (4.8-10.8) H Red Blood Count 3.48 M/UL (4.70-6.10) L Hemoglobin 9.9 G/DL (14.2-18.0) L Hematocrit 31.8 % (42.0-52.0) L Mean Corpuscular Volume 91 FL (80-99) Mean Corpuscular Hemoglobin 28.4 PG (27.0-31.0) Mean Corpuscular Hemoglobin Concent 31.0 G/DL (32.0-36.0) L Red Cell Distribution Width 14.9 % (11.6-14.8) H Platelet Count 127 K/UL (150-450) L Mean Platelet Volume 7.3 FL (6.5-10.1) Neutrophils (%) (Auto) 78.5 % (45.0-75.0) H Lymphocytes (%) (Auto) 12.1 % (20.0-45.0) L Monocytes (%) (Auto) 7.3 % (1.0-10.0) Eosinophils (%) (Auto) 1.9 % (0.0-3.0) Basophils (%) (Auto) 0.3 % (0.0-2.0) Sodium Level 149 MMOL/L (136-145) H Potassium Level 3.8 MMOL/L (3.5-5.1) Chloride Level 109 MMOL/L (98-107) H Carbon Dioxide Level 33 MMOL/L (21-32) H Anion Gap 7 mmol/L (5-15) Blood Urea Nitrogen 35 mg/dL (7-18) H Creatinine 2.2 MG/DL (0.55-1.30) H Estimat Glomerular Filtration Rate mL/min (>60) Glucose Level 182 MG/DL (74-106) H Calcium Level 9.1 MG/DL (8.5-10.1) Current Medications Medications (Trade) Dose Ordered Sig/Colin Route PRN Reason Start Time Stop Time Status Last Admin Dose Admin Acetaminophen (Tylenol) 650 mg Q6H PRN ORAL Mild Pain/Temp > 100.5 04/25/18 13:30 05/25/18 13:29 Atorvastatin Calcium (Lipitor) 20 mg BEDTIME ORAL 04/25/18 21:00 05/25/18 20:59 04/27/18 21:09 Aztreonam 1 gm/ Dextrose 55 ml @ 110 mls/hr Q8HR IVPB 04/27/18 14:00 05/04/18 13:59 04/28/18 14:14 Carbidopa/Levodopa (Sinemet 25/100) 1 tab THREE TIMES A DAY ORAL 04/25/18 13:30 05/25/18 13:29 04/28/18 12:50 Digoxin (Lanoxin) 0.125 mg DAILY ORAL 04/28/18 09:00 05/26/18 08:59 Diltiazem HCl (Cardizem) 60 mg EVERY 6 HOURS ORAL 04/25/18 18:00 05/25/18 17:59 04/28/18 12:50 Doxycycline Hyclate 100 mg/ Dextrose 110 ml @ 110 mls/hr Q12H IV 04/27/18 15:00 05/04/18 14:59 04/28/18 15:10 Gabapentin (Neurontin) 100 mg QHS ORAL 04/25/18 21:00 05/25/18 20:59 04/27/18 21:09 Multivitamins Therapeutic (Therapeutic Multivitamin) 1 ea DAILY ORAL 04/26/18 09:00 05/26/18 08:59 04/28/18 09:20 Ondansetron HCl (Zofran) 4 mg Q4H PRN IVP Nausea & Vomiting 04/25/18 13:30 05/25/18 13:29 04/28/18 14:19 Pantoprazole (Protonix) 40 mg DAILY IVP 04/26/18 09:00 05/26/18 08:59 04/28/18 09:22 Tamsulosin HCl (Flomax) 0.4 mg BEDTIME ORAL 04/25/18 21:00 05/25/18 20:59 04/27/18 21:09 Tramadol HCl (Ultram) 50 mg Q8H PRN ORAL Moderate Pain (Pain Scale 4-6) 04/25/18 13:30 05/02/18 13:29 Venlafaxine HCl (Effexor-XR) 37.5 mg DAILY ORAL 04/26/18 09:00 05/26/18 08:59 04/28/18 09:20 Srini Sam M.D. Apr 28, 2018 17:02
--- NOTE | 2018-04-28 18:31 | NUR ---
NURSE NOTES: Patient is resting calm and comfortable. open eyes and respond to tactile stimuli. tube feeding is tolerating well and no gastric residual noted. kept hob elevated for aspiration precaution and oral suction intermittently. O2 on 2L via NC in placed. repositioned. siderails are up x3. bed on alarm mode. will cont to monitor.
--- NOTE | 2018-04-28 19:21 | NUR ---
NURSE NOTES: Received patient on bed sleeping , no s/s of any distress, IV line and GT patent and intact. Bed in low position and locked, call light within reach, will continue to monitor.
--- NOTE | 2018-04-28 19:21 | NUR ---
HAND-OFF: Report given to Jace.
[2018-04-28 20:00] VITALS: BP 139/85
[2018-04-28] MEDS: Tamsulosin 0.4mg cap ORAL SCH (21:14)
[2018-04-28] MEDS: Atorvastatin 20mg tab ORAL SCH (21:14)
[2018-04-29] VITALS: BP 121/69
[2018-04-29] MEDS: dilTIAZem HCl 60mg tab ORAL SCH ×4 (00:21→17:30)
[2018-04-29] MEDS: Doxycycline Hyclate 100 MG in D5W 110 ML IV SCH ×2 (02:35→15:14)
[2018-04-29 04:00] VITALS: BP 119/65
[2018-04-29] MEDS: Aztreonam Inj 1 GM in D5W 55 ML IVPB SCH ×3 (06:18→20:34)
[2018-04-29 07:39] LABS: BASOPHILS % (AUTO) 0.8 % (0.0-2.0); EOSINOPHILS % (AUTO) 3.2 % (0.0-3.0); HEMOGLOBIN 10.5 G/DL (14.2-18.0); LYMPHOCYTES % (AUTO) 12.1 % (20.0-45.0); MEAN CORPUSCULAR VOLUME 93 FL (80-99); MONOCYTES % (AUTO) 7.4 % (1.0-10.0); NEUTROPHILS % (AUTO) 76.6 % (45.0-75.0); PLATELET COUNT 133 K/UL (150-450); RED BLOOD COUNT 3.66 M/UL (4.70-6.10); RED CELL DISTRIBUTION WIDTH 14.7 % (11.6-14.8); WHITE BLOOD COUNT 11.4 K/UL (4.8-10.8)
--- NOTE | 2018-04-29 07:45 | NUR ---
HAND-OFF: Report given to Hoda ORTEGA.
[2018-04-29 07:48] LABS: ANION GAP 4 mmol/L (5-15); BLOOD UREA NITROGEN 40 mg/dL (7-18); CALCIUM 9.1 MG/DL (8.5-10.1); CARBON DIOXIDE 34 MMOL/L (21-32); CHLORIDE 109 MMOL/L (98-107); POTASSIUM 4.7 MMOL/L (3.5-5.1); SODIUM 147 MMOL/L (136-145)
--- NOTE | 2018-04-29 07:48 | NUR ---
NURSE NOTES: Report received from SHANNON Mccormick. Pt in bed, awake, resting, respiration unlabored, no apparent distress, no complaints of pain, call light within reach, bed in lowest position.
[2018-04-29 08:00] VITALS: BP 135/61
[2018-04-29] MEDS: Venlafaxine XR 37.5mg cap ORAL SCH (08:22)
[2018-04-29] MEDS: Levodopa/Carbidopa 25/100 tab ORAL SCH ×3 (08:22→17:30)
[2018-04-29] MEDS: Pantoprazole Inj IVP SCH (08:22)
[2018-04-29] MEDS: Digoxin 0.125mg tab ORAL SCH (08:22)
[2018-04-29] MEDS: Multivitamin w/Minerals tab ORAL SCH (08:22)
--- NOTE | 2018-04-29 11:06 | GI Progress Note ---
Assessment/Plan Problems: (1) PEG (percutaneous endoscopic gastrostomy) status ICD Codes: Z93.1 - Gastrostomy status SNOMED: 456580950, 090010637 (2) FTT (failure to thrive) in adult ICD Codes: R62.7 - Adult failure to thrive SNOMED: 924875943 (3) Dysphagia causing pulmonary aspiration with swallowing ICD Codes: R13.19 - Other dysphagia SNOMED: 79503489 (4) Dementia ICD Codes: F03.90 - Unspecified dementia without behavioral disturbance SNOMED: 98046009 (5) Anemia ICD Codes: D64.9 - Anemia, unspecified SNOMED: 414043759 (6) Acute CVA (cerebrovascular accident) ICD Codes: I63.9 - Cerebral infarction, unspecified SNOMED: 940609864, 300634834 Status: stable, unchanged Status Narrative Discussed with Dr. Barrera Assessment/Plan s/p GT placement tolerating GTF GT care and flush leukocytosis work up noticed fu CBC abx per ID on Eliquis The patient was seen and examined at bedside and all new and available data was reviewed in the patients chart. I agree with the above findings, impression and plan. (Patient seen earlier today. Signature stamp does not reflect patient encounter time.). - Olegario Barrera MD Subjective Subjective Limited Objective Last 24 Hour Vital Signs Date Time Temp Pulse Resp B/P (MAP) Pulse Ox O2 Delivery O2 Flow Rate FiO2 04/29/18 09:00 Nasal Cannula 2.0 04/29/18 08:22 78 04/29/18 08:00 97.6 79 20 135/61 (85) 98 04/29/18 06:17 78 119/65 04/29/18 04:00 98.0 78 18 119/65 (83) 97 04/29/18 00:21 80 121/69 04/29/18 00:00 98.3 80 18 121/69 (86) 98 04/28/18 21:00 Nasal Cannula 2.0 04/28/18 20:00 98.6 90 20 139/85 (103) 97 04/28/18 17:18 78 120/70 04/28/18 15:55 97.8 78 20 120/70 (87) 95 04/28/18 12:50 57 136/70 04/28/18 12:00 97.1 57 19 136/70 (92) 99 Intake and Output 04/28/18 04/29/18 19:00 07:00 Intake Total 1060 ml 1055 ml Balance 1060 ml 1055 ml Intake Free Water 460 ml 400 ml IV Total 55 ml Tube Feeding 600 ml 600 ml # Voids 4 # Bowel Movements 1 Laboratory Tests Test 04/29/18 07:10 White Blood Count 11.4 K/UL (4.8-10.8) H Red Blood Count 3.66 M/UL (4.70-6.10) L Hemoglobin 10.5 G/DL (14.2-18.0) L Hematocrit 34.0 % (42.0-52.0) L Mean Corpuscular Volume 93 FL (80-99) Mean Corpuscular Hemoglobin 28.6 PG (27.0-31.0) Mean Corpuscular Hemoglobin Concent 30.9 G/DL (32.0-36.0) L Red Cell Distribution Width 14.7 % (11.6-14.8) Platelet Count 133 K/UL (150-450) L Mean Platelet Volume 7.4 FL (6.5-10.1) Neutrophils (%) (Auto) 76.6 % (45.0-75.0) H Lymphocytes (%) (Auto) 12.1 % (20.0-45.0) L Monocytes (%) (Auto) 7.4 % (1.0-10.0) Eosinophils (%) (Auto) 3.2 % (0.0-3.0) H Basophils (%) (Auto) 0.8 % (0.0-2.0) Sodium Level 147 MMOL/L (136-145) H Potassium Level 4.7 MMOL/L (3.5-5.1) Chloride Level 109 MMOL/L (98-107) H Carbon Dioxide Level 34 MMOL/L (21-32) H Anion Gap 4 mmol/L (5-15) L Blood Urea Nitrogen 40 mg/dL (7-18) H Creatinine 2.0 MG/DL (0.55-1.30) H Estimat Glomerular Filtration Rate mL/min (>60) Glucose Level 163 MG/DL (74-106) H Calcium Level 9.1 MG/DL (8.5-10.1) Height (Feet): 5 Height (Inches): 6.00 Weight (Pounds): 214 General Appearance: WD/WN, no apparent distress, alert Cardiovascular: normal rate Respiratory/Chest: normal breath sounds, no respiratory distress Abdominal Exam: normal bowel sounds, non tender, soft, GT site - Clean dry and intact Extremities: non-tender Kati Gabriel NP Apr 29, 2018 11:06
[2018-04-29 11:39] VITALS: BP 124/75
--- NOTE | 2018-04-29 13:55 | NUR ---
ST NOTE: SWALLOW/SPEECH/COGNITIVE STATUS: PT SEEN AT BEDSIDE IN PM. MORE ALERT, NC(2L), ADJUST PT AT UPRIGHT POSITION. PT IS [id number] ON THE L-SIDED. COMPLETED ORAL CARE WITH ORAL SUCTION, GREENISH PHLEGM WAS NOTED. PER RECENT CXR ON 04/27/18: Mild patchy opacity suggested at the right more than left base may represent areas of atelectasis with developing infiltrate not excluded. PT SEEN TO INCREASED LARYNGEAL/PHARYNGEAL STRENGTH. L-SIDED FACIAL WEAKNESS WAS NOTED, VOICE IS CLEAR, BUT SOME COUGHING WAS NOTED. COMPLETED ORAL MOTOR EXS AND LARYNGEAL EXS, FALSETTO "EE" X 10 SETS WITH MAX CUES. COMPLETED EFFORTFUL SWALLOW(DRY SWALLOW) EXS X 5 SETS WITH MAX CUES. RECOMMEND: CONTINUE LONG-TERM NONORAL FEEDING MEANS TO MEET NUTRITION AND HYDRATION NEEDS. SWALLOW TX VIDEOSWALLOW STUDY IS RECOMMENDED OP AFTER SWALLOW TX. D/W RNVALENTIN RE: PT'S CONDITIONS.
[2018-04-29 16:00] VITALS: BP 109/73
--- NOTE | 2018-04-29 16:01 | NUR ---
CASE MANAGEMENT:REVIEW 04/29/18 SI: FTT. DEHYDRATION DYSPHAGIA.....EGD/PEG TODAY 97.7 79 20 124/75 99% ON 2L/NC WBC 11.4 PLT 133 BUN 40 CR 2.0 IS: IV DOXYCYCLINE Q12 IV AZACTAM Q8HR IV PROTONIX QD CARDIZEM GT Q6 : MED/SURG 4[facility] DCP; FROM [facility]
--- NOTE | 2018-04-29 16:10 | Infectious Diseases Prog Note ---
Assessment/Plan Problems: (1) Aspiration pneumonia Assessment & Plan: continue aztreonam and doxycycline empirically for 7 more days . aspiration precaution, keep HOB > 30 DEGREE all the time (2) Leukocytosis Assessment & Plan: suspect due to pneumonia improving , blood culture x2 is negative , continue doxycycline and aztreonam for 7 more days (3) PEG (percutaneous endoscopic gastrostomy) status Assessment & Plan: was placed recently , no sign of infection around it, continue local care as per protocol (4) STUART (acute kidney injury) Assessment & Plan: suspect dehydration VS ureter obstruction due to renal mass , continue fluids for hydration, avoid nephrotoxics (5) Renal mass, right Assessment & Plan: poor candidate for surgery (6) FTT (failure to thrive) in adult Assessment & Plan: continue tube feeding dietitian is following Subjective ROS Limited/Unobtainable: Yes Allergies: Coded Allergies: MORPHINE (Verified Allergy, Unknown, 03/25/18) PENICILLINS (Verified Allergy, Unknown, 03/05/18) Subjective he was awake and responsive to verbal commands , has less coughing , no fever or chills, no diarrhea, no phlegm , PEG tube site wound looks ok Objective Vital Signs Last 24 Hour Vital Signs Date Time Temp Pulse Resp B/P (MAP) Pulse Ox O2 Delivery O2 Flow Rate FiO2 04/29/18 11:39 97.7 79 20 124/75 (91) 99 04/29/18 11:37 79 124/75 04/29/18 09:00 Nasal Cannula 2.0 04/29/18 08:22 78 04/29/18 08:00 97.6 79 20 135/61 (85) 98 04/29/18 06:17 78 119/65 04/29/18 04:00 98.0 78 18 119/65 (83) 97 04/29/18 00:21 80 121/69 04/29/18 00:00 98.3 80 18 121/69 (86) 98 04/28/18 21:00 Nasal Cannula 2.0 04/28/18 20:00 98.6 90 20 139/85 (103) 97 04/28/18 17:18 78 120/70 Height (Feet): 5 Height (Inches): 6.00 Weight (Pounds): 214 General Appearance: WD/WN, no acute distress HEENT: normocephalic, atraumatic, anicteric, mucous membranes moist, PERRL, EOMI, pharynx normal, supple, no JVD Respiratory/Chest: chest wall non-tender, lungs clear, normal breath sounds, no respiratory distress, no accessory muscle use Cardiovascular: normal peripheral pulses, normal rate, regular rhythm, no gallop/murmur, no JVD Abdomen: normal bowel sounds, soft, non tender, no organomegaly, non distended , no mass, no scars, other - PEG tube site looks ok Genitourinary: normal external genitalia Extremities: no cyanosis, no clubbing Skin: no rash, no lesions Neurologic/Psychiatric: alert, responsive Lymphatic: no neck adenopathy, no groin adenopathy Musculoskeletal: normal muscle bulk, no effusion Microbiology Date/Time Source Procedure Growth Status 04/27/18 13:15 Blood Blood Culture - Preliminary NO GROWTH AFTER 24 HOURS Resulted 04/27/18 13:00 Blood Blood Culture - Preliminary NO GROWTH AFTER 24 HOURS Resulted Laboratory Tests Test 04/29/18 07:10 White Blood Count 11.4 K/UL (4.8-10.8) H Red Blood Count 3.66 M/UL (4.70-6.10) L Hemoglobin 10.5 G/DL (14.2-18.0) L Hematocrit 34.0 % (42.0-52.0) L Mean Corpuscular Volume 93 FL (80-99) Mean Corpuscular Hemoglobin 28.6 PG (27.0-31.0) Mean Corpuscular Hemoglobin Concent 30.9 G/DL (32.0-36.0) L Red Cell Distribution Width 14.7 % (11.6-14.8) Platelet Count 133 K/UL (150-450) L Mean Platelet Volume 7.4 FL (6.5-10.1) Neutrophils (%) (Auto) 76.6 % (45.0-75.0) H Lymphocytes (%) (Auto) 12.1 % (20.0-45.0) L Monocytes (%) (Auto) 7.4 % (1.0-10.0) Eosinophils (%) (Auto) 3.2 % (0.0-3.0) H Basophils (%) (Auto) 0.8 % (0.0-2.0) Sodium Level 147 MMOL/L (136-145) H Potassium Level 4.7 MMOL/L (3.5-5.1) Chloride Level 109 MMOL/L (98-107) H Carbon Dioxide Level 34 MMOL/L (21-32) H Anion Gap 4 mmol/L (5-15) L Blood Urea Nitrogen 40 mg/dL (7-18) H Creatinine 2.0 MG/DL (0.55-1.30) H Estimat Glomerular Filtration Rate mL/min (>60) Glucose Level 163 MG/DL (74-106) H Calcium Level 9.1 MG/DL (8.5-10.1) Current Medications Medications (Trade) Dose Ordered Sig/Colin Route PRN Reason Start Time Stop Time Status Last Admin Dose Admin Acetaminophen (Tylenol) 650 mg Q6H PRN ORAL Mild Pain/Temp > 100.5 04/25/18 13:30 05/25/18 13:29 Atorvastatin Calcium (Lipitor) 20 mg BEDTIME ORAL 04/25/18 21:00 05/25/18 20:59 04/28/18 21:14 Aztreonam 1 gm/ Dextrose 55 ml @ 110 mls/hr Q8HR IVPB 04/27/18 14:00 05/04/18 13:59 04/29/18 13:35 Carbidopa/Levodopa (Sinemet 25/100) 1 tab THREE TIMES A DAY ORAL 04/25/18 13:30 05/25/18 13:29 04/29/18 13:34 Digoxin (Lanoxin) 0.125 mg DAILY ORAL 04/28/18 09:00 05/26/18 08:59 04/29/18 08:22 Diltiazem HCl (Cardizem) 60 mg EVERY 6 HOURS ORAL 04/25/18 18:00 05/25/18 17:59 04/29/18 11:37 Doxycycline Hyclate 100 mg/ Dextrose 110 ml @ 110 mls/hr Q12H IV 04/27/18 15:00 05/04/18 14:59 04/29/18 15:14 Gabapentin (Neurontin) 100 mg QHS ORAL 04/25/18 21:00 05/25/18 20:59 04/28/18 21:14 Multivitamins Therapeutic (Therapeutic Multivitamin) 1 ea DAILY ORAL 04/26/18 09:00 05/26/18 08:59 04/29/18 08:22 Ondansetron HCl (Zofran) 4 mg Q4H PRN IVP Nausea & Vomiting 04/25/18 13:30 05/25/18 13:29 04/28/18 14:19 Pantoprazole (Protonix) 40 mg DAILY IVP 04/26/18 09:00 05/26/18 08:59 04/29/18 08:22 Tamsulosin HCl (Flomax) 0.4 mg BEDTIME ORAL 04/25/18 21:00 05/25/18 20:59 04/28/18 21:14 Tramadol HCl (Ultram) 50 mg Q8H PRN ORAL Moderate Pain (Pain Scale 4-6) 04/25/18 13:30 05/02/18 13:29 Venlafaxine HCl (Effexor-XR) 37.5 mg DAILY ORAL 04/26/18 09:00 05/26/18 08:59 04/29/18 08:22 Srini Sam M.D. Apr 29, 2018 16:10
--- NOTE | 2018-04-29 16:12 | Cardiac Electrophysiology PN ---
Assessment/Plan Assessment/Plan 1. Atrial fibrillation with rapid ventricular response. On digoxin 0.125 daily and Cardizem 60 mg every 6 hours. Resume Eliquis 5 bid when okay with Dr. Barrera. 2. Hypertension. Continue Cardizem 60 mg every 6 hours. 3. History of congestive heart failure due to diastolic dysfunction. May need to add addition of Lasix. 4. Dysphagia, status post PEG placement. 5. Parkinson's dementia. 6. History of left hip surgery. 7. Elevated WBC on ABx per Dr Cecy BURGOS RN Subjective Subjective No events. RN at bedside. Objective Last 24 Hour Vital Signs Date Time Temp Pulse Resp B/P (MAP) Pulse Ox O2 Delivery O2 Flow Rate FiO2 04/29/18 11:39 97.7 79 20 124/75 (91) 99 04/29/18 11:37 79 124/75 04/29/18 09:00 Nasal Cannula 2.0 04/29/18 08:22 78 04/29/18 08:00 97.6 79 20 135/61 (85) 98 04/29/18 06:17 78 119/65 04/29/18 04:00 98.0 78 18 119/65 (83) 97 04/29/18 00:21 80 121/69 04/29/18 00:00 98.3 80 18 121/69 (86) 98 04/28/18 21:00 Nasal Cannula 2.0 04/28/18 20:00 98.6 90 20 139/85 (103) 97 04/28/18 17:18 78 120/70 Intake and Output 04/28/18 04/29/18 19:00 07:00 Intake Total 1060 ml 1055 ml Balance 1060 ml 1055 ml Intake Free Water 460 ml 400 ml IV Total 55 ml Tube Feeding 600 ml 600 ml # Voids 4 # Bowel Movements 1 Laboratory Tests Test 04/29/18 07:10 White Blood Count 11.4 K/UL (4.8-10.8) H Red Blood Count 3.66 M/UL (4.70-6.10) L Hemoglobin 10.5 G/DL (14.2-18.0) L Hematocrit 34.0 % (42.0-52.0) L Mean Corpuscular Volume 93 FL (80-99) Mean Corpuscular Hemoglobin 28.6 PG (27.0-31.0) Mean Corpuscular Hemoglobin Concent 30.9 G/DL (32.0-36.0) L Red Cell Distribution Width 14.7 % (11.6-14.8) Platelet Count 133 K/UL (150-450) L Mean Platelet Volume 7.4 FL (6.5-10.1) Neutrophils (%) (Auto) 76.6 % (45.0-75.0) H Lymphocytes (%) (Auto) 12.1 % (20.0-45.0) L Monocytes (%) (Auto) 7.4 % (1.0-10.0) Eosinophils (%) (Auto) 3.2 % (0.0-3.0) H Basophils (%) (Auto) 0.8 % (0.0-2.0) Sodium Level 147 MMOL/L (136-145) H Potassium Level 4.7 MMOL/L (3.5-5.1) Chloride Level 109 MMOL/L (98-107) H Carbon Dioxide Level 34 MMOL/L (21-32) H Anion Gap 4 mmol/L (5-15) L Blood Urea Nitrogen 40 mg/dL (7-18) H Creatinine 2.0 MG/DL (0.55-1.30) H Estimat Glomerular Filtration Rate mL/min (>60) Glucose Level 163 MG/DL (74-106) H Calcium Level 9.1 MG/DL (8.5-10.1) Microbiology Date/Time Source Procedure Growth Status 04/27/18 13:15 Blood Blood Culture - Preliminary NO GROWTH AFTER 24 HOURS Resulted 04/27/18 13:00 Blood Blood Culture - Preliminary NO GROWTH AFTER 24 HOURS Resulted Objective HEAD AND NECK: No JVD. LUNGS: Clear CARDIOVASCULAR: S1 and S2 with no gallop or murmur. ABDOMEN: Status post PEG. EXTREMITIES: No pitting edema. Gary Bay MD Apr 29, 2018 16:12
--- NOTE | 2018-04-29 17:22 | General Progress Note ---
Assessment/Plan Status: stable Assessment/Plan 1. Dysphagia s/p Peg Tube placement - D/C back to [facility] today. 2. Leukocytosis - improved. cont IV abx. for 7 more days. 3. Lt leg acute popliteal thrombosis - D/C Eliquis 2.5 mg one po bid due to thrombocytopenia and Anemia. 4. H/O A Fib with rapid ventricular response - on digoxin and Cardiazm. Will D/ C Eliquis due to worsening H/H and thrombocytopenia with starting Eliquis. 5. STUART - 2nd to dehydration. improved. may increase water through the G tube. 6. Parkinson dx - cont home meds. 7. 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 8. H/o CVA 9. H/o Diastolic CHF - stable Subjective Date patient seen: Apr 29, 2018 Time patient seen: 05:00 Constitutional: Reports: no symptoms HEENT: Reports: no symptoms Cardiovascular: Reports: no symptoms Respiratory: Reports: cough Gastrointestinal/Abdominal: Reports: no symptoms Genitourinary: Reports: no symptoms Neurologic/Psychiatric: Reports: no symptoms Endocrine: Reports: no symptoms Hematologic/Lymphatic: Reports: no symptoms Allergies: Coded Allergies: MORPHINE (Verified Allergy, Unknown, 03/25/18) PENICILLINS (Verified Allergy, Unknown, 03/05/18) Subjective He is s/p peg tube placement. This morning his wbc improving. he is better and able to talk and responding to questions. no fever or chills. no sob or chest pain. Objective Last 24 Hour Vital Signs Date Time Temp Pulse Resp B/P (MAP) Pulse Ox O2 Delivery O2 Flow Rate FiO2 04/29/18 16:00 97.6 75 20 109/73 (85) 99 04/29/18 11:39 97.7 79 20 124/75 (91) 99 04/29/18 11:37 79 124/75 04/29/18 09:00 Nasal Cannula 2.0 04/29/18 08:22 78 04/29/18 08:00 97.6 79 20 135/61 (85) 98 04/29/18 06:17 78 119/65 04/29/18 04:00 98.0 78 18 119/65 (83) 97 04/29/18 00:21 80 121/69 04/29/18 00:00 98.3 80 18 121/69 (86) 98 04/28/18 21:00 Nasal Cannula 2.0 04/28/18 20:00 98.6 90 20 139/85 (103) 97 Intake and Output 04/28/18 04/29/18 19:00 07:00 Intake Total 1060 ml 1055 ml Balance 1060 ml 1055 ml Intake Free Water 460 ml 400 ml IV Total 55 ml Tube Feeding 600 ml 600 ml # Voids 4 # Bowel Movements 1 Laboratory Tests 04/29/18 07:10: White Blood Count 11.4H, Red Blood Count 3.66L, Hemoglobin 10.5L, Hematocrit 34.0L, Mean Corpuscular Volume 93, Mean Corpuscular Hemoglobin 28.6, Mean Corpuscular Hemoglobin Concent 30.9L, Red Cell Distribution Width 14.7, Platelet Count 133L, Mean Platelet Volume 7.4, Neutrophils (%) (Auto) 76.6H, Lymphocytes (%) (Auto) 12.1L, Monocytes (%) (Auto) 7.4, Eosinophils (%) (Auto) 3.2H, Basophils (%) (Auto) 0.8, Sodium Level 147H, Potassium Level 4.7, Chloride Level 109H, Carbon Dioxide Level 34H, Anion Gap 4L, Blood Urea Nitrogen 40H, Creatinine 2.0H, Estimat Glomerular Filtration Rate , Glucose Level 163H, Calcium Level 9.1 Height (Feet): 5 Height (Inches): 6.00 Weight (Pounds): 214 General Appearance: no apparent distress, alert Neck: non-tender, normal alignment, supple Cardiovascular: normal rate, regular rhythm Respiratory/Chest: lungs clear, normal breath sounds, no respiratory distress Abdomen: normal bowel sounds, non tender, soft Extremities: normal range of motion, non-tender Edema: no edema noted Arm (L), no edema noted Arm (R), no edema noted Leg (L), no edema noted Leg (R), no edema noted Pedal (L), no edema noted Pedal (R), no edema noted Generalized Neurologic: alert, responsive Lymphatic: normal anterior cervical (L), normal anterior cervical (R), normal posterior cervical (L), normal posterior cervical (R), normal submandibular (L) , normal submandibular (R), normal supraclavicular (L), normal supraclavicular ( R), normal axillary (L), normal axillary (R), normal inguinal (L), normal inguinal (R), normal other Shelby Arrington MD Apr 29, 2018 17:22
[2018-04-29] MEDS ORDERED: DOXY 100100 MG IV (17:29)
[2018-04-29] MEDS ORDERED: Digoxin ORAL (17:29)
[2018-04-29] MEDS ORDERED: [UNRECOGNIZED DRUG - OTHER] TOP (17:29)
--- NOTE | 2018-04-29 19:32 | NUR ---
HAND-OFF: Report given to SHANNON Arcos.
--- NOTE | 2018-04-29 19:39 | NUR ---
NURSE NOTES: Received patient in bed. No SOB, no acute distress, no c/o pain. L upper arm 24G running TKO. In stable condition, family by epi side. Bed in lowest position, locked, alarms on. Call light in reach. Addendum: 04/29/18 at 1947 by Kelby Sanchez RN Disregard "family by bedside" Patient is receiving O2 2L via N/C, no SOB noted. On GT feeding, no s/sx of aspiration noted. Abdomen soft, HOB remaining up.
[2018-04-29 20:00] VITALS: BP 123/62
[2018-04-29] MEDS: Atorvastatin 20mg tab ORAL SCH (20:33)
[2018-04-29] MEDS: Tamsulosin 0.4mg cap ORAL SCH (20:33)
--- NOTE | 2018-04-29 22:00 | NUR ---
NURSE NOTES: Received phone call from Dr Arrington to D/C patient to skilled nursing. Called [facility] and nurse said they are not able to receive patient due to short staff at this time. Will D/C patient in AM.
[2018-04-30] VITALS: BP 115/51
--- NOTE | 2018-04-30 | Discharge Summary ---
DATE OF ADMISSION: 04/25/2018 DATE OF DISCHARGE: 04/30/2018 HOSPITAL COURSE: This is an 87-year-old male who was brought in from [facility] for PEG tube placement. The patient while in the hospital had surgery done by Dr. Barrera for PEG tube placement and was started on tube feeding in the hospital. The patient also noticed to have aspiration pneumonia from oral feeding in the rehabilitation. ID was consulted and the patient was started on IV antibiotic, doxycycline and aztreonam IV. He has responded to IV antibiotic and his white count improved. The patient will be discharged to [facility] for further IV antibiotic for a total of 7 more days. DISCHARGE DIAGNOSES: Include: 1. Aspiration pneumonia. 2. Dysphagia, status post PEG tube placement. 3. Left leg acute popliteal thrombosis. 4. Leukocytosis. 5. AFib, rate controlled. 6. Acute kidney injury secondary to dehydration. 7. Parkinson disease. 8. 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 9. History of CVA. 10. History of diastolic dysfunction. DISCHARGE MEDICATIONS: Include: 1. Aztreonam 1 g IV q.8 hours for 7 days. 2. Doxycycline 100 mg IV b.i.d. for 7 days. 3. Digoxin 0.125 mg through G-tube daily. 4. Atorvastatin 20 mg through G-tube nightly. 5. Sinemet 25/100 one t.i.d. through the G-tube. 6. Gabapentin 100 nightly through G-tube. 7. Multivitamin one through G-tube daily. 8. Protonix 40 mg through G-tube daily. 9. Flomax 0.4 mg through G-tube nightly. 10. Effexor 37.5 daily through G-tube. 11. Tramadol 50 mg q.8 h. p.r.n. through the G-tube. 12. We will also try to start the patient on Lovenox at detention to cover for DVT in the rehabilitation. DISPOSITION: The patient will be discharged back to the [facility] and I will follow the patient in a few days. Shelby Arrington M.D. DR: Mallory JOB#: [id number] CC: CINDY
[2018-04-30] MEDS: Doxycycline Hyclate 100 MG in D5W 110 ML IV SCH (02:52)
[2018-04-30 04:00] VITALS: BP 132/84
[2018-04-30] MEDS: dilTIAZem HCl 60mg tab ORAL SCH ×3 (05:35→12:44)
[2018-04-30] MEDS: Aztreonam Inj 1 GM in D5W 55 ML IVPB SCH (05:42)
--- NOTE | 2018-04-30 07:19 | NUR ---
HAND-OFF: Report given to SHANNON Drummond.
--- NOTE | 2018-04-30 07:34 | NUR ---
NURSE NOTES: Report received from SHANNON Arcos. Pt in bed, asleep, respirations unlabored, no apparent distress noted, GT feeds running at 50ml/hr, bed in lowest position, call light within reach.
[2018-04-30 08:00] VITALS: BP 131/70
[2018-04-30 08:29] LABS: BASOPHILS % (AUTO) 0.7 % (0.0-2.0); EOSINOPHILS % (AUTO) 4.8 % (0.0-3.0); HEMATOCRIT 35.6 % (42.0-52.0); HEMOGLOBIN 11.1 G/DL (14.2-18.0); LYMPHOCYTES % (AUTO) 17.6 % (20.0-45.0); MEAN CORPUSCULAR VOLUME 91 FL (80-99); MONOCYTES % (AUTO) 7.4 % (1.0-10.0); NEUTROPHILS % (AUTO) 69.5 % (45.0-75.0); PLATELET COUNT 149 K/UL (150-450); RED BLOOD COUNT 3.91 M/UL (4.70-6.10); WHITE BLOOD COUNT 8.8 K/UL (4.8-10.8)
[2018-04-30] MEDS: Venlafaxine XR 37.5mg cap ORAL SCH (08:37)
[2018-04-30] MEDS: Pantoprazole Inj IVP SCH (08:37)
[2018-04-30] MEDS: Levodopa/Carbidopa 25/100 tab ORAL SCH ×2 (08:37→12:43)
[2018-04-30] MEDS: Multivitamin w/Minerals tab ORAL SCH (08:37)
[2018-04-30] MEDS: Digoxin 0.125mg tab ORAL SCH (08:38)
--- NOTE | 2018-04-30 08:51 | Cardiology Report ---
APPROVED REPORT EXAM: Two-dimensional and M-mode echocardiogram with Doppler and color Doppler. INDICATION THROMBOSIS M-Mode DIMENSIONS Left Atrium (MM)4.1 (1.6-4.0cm) Aortic Root3.7 (2.0-3.7cm) Aortic Cusp Exc.1.6 (1.5-2.0cm) . Study quality precludes accurate assessment of regional wall motion. Normal left ventricular chamber size, systolic function and wall motion to extent visualized. Left ventricular ejection fraction estimated to be grossly normal . No evidence of left ventricular hypertrophy . No evidence of pericardial effusion. All other cardiac chamber sizes are within normal limits. Aortic valve sclerosis with adequate cusp excursion. Thickened mitral valve leaflets with normal excursion. Mitral annulus and aortic root calcification. Pulmonic valve not well visualized. Subcostal views are not obtained due to pt's surgery . A color flow and spectral Doppler study was performed and revealed: No aortic regurgitation. Mitral diastolic velocities suggest reduced left ventricular relaxation c/w mild LV diastolic dysfunction (Grade I ) Trace mitral regurgitation. Mild tricuspid regurgitation. Tricuspid systolic velocities suggests peak right ventricular systolic pressure of 38mmHg, consistent with mild pulmonary hypertension.
[2018-04-30 08:52] LABS: ANION GAP 6 mmol/L (5-15); BLOOD UREA NITROGEN 41 mg/dL (7-18); CALCIUM 9.4 MG/DL (8.5-10.1); CARBON DIOXIDE 31 MMOL/L (21-32); CHLORIDE 104 MMOL/L (98-107); CREATININE 1.7 MG/DL (0.55-1.30); POTASSIUM 4.4 MMOL/L (3.5-5.1); SODIUM 141 MMOL/L (136-145)
--- NOTE | 2018-04-30 10:05 | NUR ---
DISCHARGE PLANNING PATIENT HAS BEEN REFERRED BACK TO: [facility] P:[phone] F:[phone]
--- NOTE | 2018-04-30 11:11 | NUR ---
DISCHARGE PLANNED PATIENT DISCAHRGED BACK TO: [facility] ROOM# 18-B SKILLED T:[phone] FOR NURSE TO NURSE REPORT [facility] HAS BEEN ARRANGED FOR HOME INSURANCE AGENT [phone]
--- NOTE | 2018-04-30 11:22 | Cardiac Electrophysiology PN ---
Assessment/Plan Assessment/Plan 1. Atrial fibrillation with rapid ventricular response. On digoxin 0.125 daily and Cardizem 60 mg every 6 hours. Resume Eliquis 5 bid when okay with Dr. Barrera. 2. Hypertension. Continue Cardizem 60 mg every 6 hours. 3. History of congestive heart failure due to diastolic dysfunction. 4. Dysphagia, status post PEG placement. 5. Parkinson's dementia. 6. History of left hip surgery. 7. Elevated WBC on ABx per Dr Cecy BURGOS RN DC today Subjective Subjective No events. RN at bedside.DC planing in progress Objective Last 24 Hour Vital Signs Date Time Temp Pulse Resp B/P (MAP) Pulse Ox O2 Delivery O2 Flow Rate FiO2 04/30/18 08:38 68 04/30/18 08:36 Nasal Cannula 2.0 04/30/18 08:00 97.6 74 18 131/70 (90) 92 04/30/18 05:35 79 132/84 04/30/18 04:00 97.2 79 16 132/84 (100) 94 04/30/18 00:00 97.5 64 18 115/51 (72) 94 04/30/18 00:00 64 115/51 04/29/18 21:00 Nasal Cannula 2.0 04/29/18 20:00 97.7 59 18 123/62 (82) 97 04/29/18 17:30 75 109/73 04/29/18 16:00 97.6 75 20 109/73 (85) 99 04/29/18 11:39 97.7 79 20 124/75 (91) 99 04/29/18 11:37 79 124/75 Intake and Output 04/29/18 04/30/18 18:59 06:59 Intake Total 700 ml 1220 ml Output Total 700 ml Balance 0 ml 1220 ml Intake Free Water 600 ml 400 ml IV Total 220 ml Tube Feeding 100 ml 600 ml Output Urine Total 700 ml # Voids 4 3 # Bowel Movements 2 Laboratory Tests Test 04/30/18 07:35 White Blood Count 8.8 K/UL (4.8-10.8) Red Blood Count 3.91 M/UL (4.70-6.10) L Hemoglobin 11.1 G/DL (14.2-18.0) L Hematocrit 35.6 % (42.0-52.0) L Mean Corpuscular Volume 91 FL (80-99) Mean Corpuscular Hemoglobin 28.5 PG (27.0-31.0) Mean Corpuscular Hemoglobin Concent 31.2 G/DL (32.0-36.0) L Red Cell Distribution Width 15.0 % (11.6-14.8) H Platelet Count 149 K/UL (150-450) L Mean Platelet Volume 7.7 FL (6.5-10.1) Neutrophils (%) (Auto) 69.5 % (45.0-75.0) Lymphocytes (%) (Auto) 17.6 % (20.0-45.0) L Monocytes (%) (Auto) 7.4 % (1.0-10.0) Eosinophils (%) (Auto) 4.8 % (0.0-3.0) H Basophils (%) (Auto) 0.7 % (0.0-2.0) Sodium Level 141 MMOL/L (136-145) Potassium Level 4.4 MMOL/L (3.5-5.1) Chloride Level 104 MMOL/L (98-107) Carbon Dioxide Level 31 MMOL/L (21-32) Anion Gap 6 mmol/L (5-15) Blood Urea Nitrogen 41 mg/dL (7-18) H Creatinine 1.7 MG/DL (0.55-1.30) H Estimat Glomerular Filtration Rate mL/min (>60) Glucose Level 157 MG/DL (74-106) H Calcium Level 9.4 MG/DL (8.5-10.1) Microbiology Date/Time Source Procedure Growth Status 04/27/18 13:15 Blood Blood Culture - Preliminary NO GROWTH AFTER 48 HOURS Resulted 04/27/18 13:00 Blood Blood Culture - Preliminary NO GROWTH AFTER 48 HOURS Resulted Objective HEAD AND NECK: No JVD. LUNGS: Clear CARDIOVASCULAR: Regular S1 and S2 with no gallop or murmur. ABDOMEN: Status post PEG. EXTREMITIES: No pitting edema. Gary Bya MD Apr 30, 2018 11:22
--- NOTE | 2018-04-30 11:29 | NUR ---
NURSE NOTES: Called report to SHANNON Hall at [facility]. Completed all discharge paperwork. Pt is unable to sign for himself. All discharge paperwork put in folder. Took photo of left heel wound.
--- NOTE | 2018-04-30 11:31 | NUR ---
ST NOTE: SWALLOW/SPEECH/LANGUAGE/COGNITIONS STATUS PT SEEN AT BEDSIDE IN AM. ALERT, COOPERATIVE. ADJUST PT AT UPRIGHT POSITION. PT SEEN TO IMPROVE LABIAL AND LINGUAL STRENGTH AND LARYNGEAL STRENGTH. PT STILL HAS A COUGH AND PT IS ABLE TO COUGH UP PHLEGM. COMPLETED ORAL CARE WITH ORAL SUCTION. COMPLETED ORAL SENSATION TX. PT COMPLETED ORAL MOTOR EXS WITH 40% OF THE TIME WITH MAX CUES; AND COMPLETED LARYNGEAL EXS(FALSETTO EE) WITH 80% OF THE TIME WITH MAX CUES. PT WAS ABLE TO FOLLOW SIMPLE DIRECTIONS WITH MAX CUES; ALSO ABLE TO EXPRESS BASIC WANTS AND NEEDS. PER RN, PT IS D/C TODAY. REFER PT TO SODA TESTER RE: SWALLOW TX. RECOMMEND VIDEOSWALLOW STUDY AFTER SWALLOW TX. D/C FROM SKILLED [facility].
[2018-04-30 12:00] VITALS: BP 127/69
[2018-04-30 12:44] VITALS: BP 127/69
--- NOTE | 2018-04-30 12:55 | GI Progress Note ---
Assessment/Plan Problems: (1) PEG (percutaneous endoscopic gastrostomy) status ICD Codes: Z93.1 - Gastrostomy status SNOMED: 193663478, 926262019 (2) FTT (failure to thrive) in adult ICD Codes: R62.7 - Adult failure to thrive SNOMED: 853135084 (3) Dysphagia causing pulmonary aspiration with swallowing ICD Codes: R13.19 - Other dysphagia SNOMED: 52411112 (4) Dementia ICD Codes: F03.90 - Unspecified dementia without behavioral disturbance SNOMED: 99963628 (5) Anemia ICD Codes: D64.9 - Anemia, unspecified SNOMED: 155967050 (6) Acute CVA (cerebrovascular accident) ICD Codes: I63.9 - Cerebral infarction, unspecified SNOMED: 056320073, 420129757 Status: stable Status Narrative Discussed with Dr. Barrera Assessment/Plan s/p GT placement tolerating GTF GT care and flush leukocytosis work up noticed fu CBC abx per ID on [employer] [place] planning The patient was seen and examined at bedside and all new and available data was reviewed in the patients chart. I agree with the above findings, impression and plan. (Patient seen earlier today. Signature stamp does not reflect patient encounter time.). - Olegario Barrera MD Subjective Subjective Limited Objective Last 24 Hour Vital Signs Date Time Temp Pulse Resp B/P (MAP) Pulse Ox O2 Delivery O2 Flow Rate FiO2 04/30/18 12:44 72 127/69 04/30/18 12:00 98.0 72 18 127/69 (88) 96 04/30/18 08:38 68 04/30/18 08:36 Nasal Cannula 2.0 04/30/18 08:00 97.6 74 18 131/70 (90) 92 04/30/18 05:35 79 132/84 04/30/18 04:00 97.2 79 16 132/84 (100) 94 04/30/18 00:00 97.5 64 18 115/51 (72) 94 04/30/18 00:00 64 115/51 04/29/18 21:00 Nasal Cannula 2.0 04/29/18 20:00 97.7 59 18 123/62 (82) 97 04/29/18 17:30 75 109/73 04/29/18 16:00 97.6 75 20 109/73 (85) 99 Intake and Output 04/29/18 04/30/18 19:00 07:00 Intake Total 700 ml 1170 ml Output Total 700 ml Balance 0 ml 1170 ml Intake Free Water 600 ml 400 ml IV Total 220 ml Tube Feeding 100 ml 550 ml Output Urine Total 700 ml # Voids 4 3 # Bowel Movements 2 Laboratory Tests Test 04/30/18 07:35 White Blood Count 8.8 K/UL (4.8-10.8) Red Blood Count 3.91 M/UL (4.70-6.10) L Hemoglobin 11.1 G/DL (14.2-18.0) L Hematocrit 35.6 % (42.0-52.0) L Mean Corpuscular Volume 91 FL (80-99) Mean Corpuscular Hemoglobin 28.5 PG (27.0-31.0) Mean Corpuscular Hemoglobin Concent 31.2 G/DL (32.0-36.0) L Red Cell Distribution Width 15.0 % (11.6-14.8) H Platelet Count 149 K/UL (150-450) L Mean Platelet Volume 7.7 FL (6.5-10.1) Neutrophils (%) (Auto) 69.5 % (45.0-75.0) Lymphocytes (%) (Auto) 17.6 % (20.0-45.0) L Monocytes (%) (Auto) 7.4 % (1.0-10.0) Eosinophils (%) (Auto) 4.8 % (0.0-3.0) H Basophils (%) (Auto) 0.7 % (0.0-2.0) Sodium Level 141 MMOL/L (136-145) Potassium Level 4.4 MMOL/L (3.5-5.1) Chloride Level 104 MMOL/L (98-107) Carbon Dioxide Level 31 MMOL/L (21-32) Anion Gap 6 mmol/L (5-15) Blood Urea Nitrogen 41 mg/dL (7-18) H Creatinine 1.7 MG/DL (0.55-1.30) H Estimat Glomerular Filtration Rate mL/min (>60) Glucose Level 157 MG/DL (74-106) H Calcium Level 9.4 MG/DL (8.5-10.1) Height (Feet): 5 Height (Inches): 6.00 Weight (Pounds): 214 Abdominal Exam: GT site - Clean dry and intact Kati Gabriel NP Apr 30, 2018 12:55
--- NOTE | 2018-04-30 13:45 | NUR ---
NURSE NOTES: Pt discharge via ambulance service to [facility]. ID band removed, IV in place as pt will continue IV Abx at SNF. Pt discharged with bilateral heel protectors on, stable.
--- NOTE | 2018-04-30 18:50 | Infectious Diseases Prog Note ---
Assessment/Plan Problems: (1) Aspiration pneumonia Assessment & Plan: continue aztreonam and doxycycline empirically for 7 more days . aspiration precaution, keep HOB > 30 DEGREE all the time (2) Leukocytosis Assessment & Plan: suspect due to pneumonia improving , blood culture x2 is negative , continue doxycycline and aztreonam for 7 more days (3) PEG (percutaneous endoscopic gastrostomy) status Assessment & Plan: was placed recently , no sign of infection around it, continue local care as per protocol (4) STUART (acute kidney injury) Assessment & Plan: suspect dehydration VS ureter obstruction due to renal mass , continue fluids for hydration, avoid nephrotoxics (5) Renal mass, right Assessment & Plan: poor candidate for surgery (6) FTT (failure to thrive) in adult Assessment & Plan: continue tube feeding dietitian is following Assessment/Plan time of stamp doesn't reflect time patient was seen Subjective Constitutional: Reports: no symptoms HEENT: Reports: no symptoms Respiratory: Reports: no symptoms Breasts: Reports: no symptoms Cardiovascular: Reports: no symptoms Gastrointestinal/Abdominal: Reports: no symptoms Genitourinary: Reports: no symptoms Neurologic: Reports: no symptoms Psychiatric: Reports: no symptoms Skin: Reports: no symptoms Endocrine: Reports: no symptoms Hematologic: Reports: no symptoms Musculoskeletal: Reports: no symptoms Allergies: Coded Allergies: MORPHINE (Verified Allergy, Unknown, 03/25/18) PENICILLINS (Verified Allergy, Unknown, 03/05/18) Subjective he was awake and responsive to verbal commands , has less coughing , no fever or chills, no diarrhea, no phlegm , PEG tube site wound looks ok Objective Vital Signs Last 24 Hour Vital Signs Date Time Temp Pulse Resp B/P (MAP) Pulse Ox O2 Delivery O2 Flow Rate FiO2 04/30/18 12:44 72 127/69 04/30/18 12:00 98.0 72 18 127/69 (88) 96 04/30/18 08:38 68 04/30/18 08:36 Nasal Cannula 2.0 04/30/18 08:00 97.6 74 18 131/70 (90) 92 04/30/18 05:35 79 132/84 04/30/18 04:00 97.2 79 16 132/84 (100) 94 04/30/18 00:00 97.5 64 18 115/51 (72) 94 04/30/18 00:00 64 115/51 1/7/19 21:00 Nasal Cannula 2.0 04/29/18 20:00 97.7 59 18 123/62 (82) 97 Height (Feet): 5 Height (Inches): 6.00 Weight (Pounds): 214 General Appearance: WD/WN, no acute distress HEENT: normocephalic, atraumatic, anicteric, mucous membranes moist, PERRL Respiratory/Chest: chest wall non-tender, lungs clear, normal breath sounds, no respiratory distress, no accessory muscle use Cardiovascular: normal peripheral pulses, normal rate, regular rhythm, no gallop/murmur, no JVD Abdomen: normal bowel sounds, soft, non tender, no organomegaly, non distended , no mass, no scars Genitourinary: normal external genitalia Extremities: no cyanosis, no clubbing Skin: no rash, no lesions Neurologic/Psychiatric: alert, responsive Lymphatic: no neck adenopathy, no groin adenopathy Musculoskeletal: normal muscle bulk, no effusion Laboratory Tests Test 04/30/18 07:35 White Blood Count 8.8 K/UL (4.8-10.8) Red Blood Count 3.91 M/UL (4.70-6.10) L Hemoglobin 11.1 G/DL (14.2-18.0) L Hematocrit 35.6 % (42.0-52.0) L Mean Corpuscular Volume 91 FL (80-99) Mean Corpuscular Hemoglobin 28.5 PG (27.0-31.0) Mean Corpuscular Hemoglobin Concent 31.2 G/DL (32.0-36.0) L Red Cell Distribution Width 15.0 % (11.6-14.8) H Platelet Count 149 K/UL (150-450) L Mean Platelet Volume 7.7 FL (6.5-10.1) Neutrophils (%) (Auto) 69.5 % (45.0-75.0) Lymphocytes (%) (Auto) 17.6 % (20.0-45.0) L Monocytes (%) (Auto) 7.4 % (1.0-10.0) Eosinophils (%) (Auto) 4.8 % (0.0-3.0) H Basophils (%) (Auto) 0.7 % (0.0-2.0) Sodium Level 141 MMOL/L (136-145) Potassium Level 4.4 MMOL/L (3.5-5.1) Chloride Level 104 MMOL/L (98-107) Carbon Dioxide Level 31 MMOL/L (21-32) Anion Gap 6 mmol/L (5-15) Blood Urea Nitrogen 41 mg/dL (7-18) H Creatinine 1.7 MG/DL (0.55-1.30) H Estimat Glomerular Filtration Rate mL/min (>60) Glucose Level 157 MG/DL (74-106) H Calcium Level 9.4 MG/DL (8.5-10.1) Srini Sam M.D. Apr 30, 2018 18:50
--- NOTE | 2018-05-01 12:53 | Diagnostic Imaging Report ---
APPROVED REPORT CPT Code: 08342 Present Symptoms Comments: BILATERAL LEGS PAIN. RIGHT LEG: Venous imaging reveals a patent deep venous system. There is no evidence of thrombus within the femoral, popliteal or tibial segments. The greater saphenous vein is also within normal limits. Doppler indicates normal spontaneous flow within these segments. LEFT LEG: Venous imaging reveals acute thrombus in the popliteal vein. Imaging also reveals patency of the common femoral, calf veins (posterior tibial and peroneal). Greater saphenous vein within normal limits. SHANNON NIEVES NOTIFIED AT 20:09
== END 2018-04-30 13:45 | DRG 178 ==
LOC: EDBD 08:45 → EMR 09:20 → 4E 09:24 → EDBEDREQ 09:24
PROC: 0DH63UZ Insertion of Feeding Device into Stomach, Percutaneous Approach (ICD-10-PCS; principal; 2018-04-26 08:07)
DX: J69.0 Pneumonitis due to inhalation of food and vomit (principal); N17.9 Acute kidney failure, unspecified; I82.432 Acute embolism and thrombosis of left popliteal vein; I50.32 Chronic diastolic (congestive) heart failure; I13.0 Hypertensive heart and chronic kidney disease with heart failure and stage 1 through stage 4 chronic kidney disease, or unspecified chronic kidney disease; I48.91 Unspecified atrial fibrillation; G20 Parkinson's disease; F02.80 Dementia in other diseases classified elsewhere, unspecified severity, without behavioral disturbance, psychotic disturbance, mood disturbance, and anxiety; R13.19 Other dysphagia; E78.5 Hyperlipidemia, unspecified; N40.0 Benign prostatic hyperplasia without lower urinary tract symptoms; N18.9 Chronic kidney disease, unspecified; Z86.73 Personal history of transient ischemic attack (TIA), and cerebral infarction without residual deficits; E86.0 Dehydration; Z88.6 Allergy status to analgesic agent; Z88.0 Allergy status to penicillin; J44.9 Chronic obstructive pulmonary disease, unspecified; G62.9 Polyneuropathy, unspecified; R62.7 Adult failure to thrive; K63.5 Polyp of colon; K57.90 Diverticulosis of intestine, part unspecified, without perforation or abscess without bleeding; K64.8 Other hemorrhoids; D17.79 Benign lipomatous neoplasm of other sites
CPT/HCPCS: 36415; 71045; 80048; 80053; 80162; 81001; 81003; 83690; 83735; 84100; 85025; 85610; 85730; 86850; 86900; 86901; 87040; 93005; 93306; 93970; 94003; 94150; 96360; 99285; J2370; J2405; J3490; S0077

== ENCOUNTER 2018-08-02 06:04 | Inpatient (IN) | payer MEDICARE, OTHER ==
[2018-08-02] VITALS (18 sets, daily range): BP systolic 103–155; BP diastolic 54–90
[~2018-08-02] VITALS: Ht 167.6 cm; Wt 106.1 kg
[~2018-08-02 06:04] MED LIST changes: +DOXY 100100 MG IV; +Digoxin ORAL; +[UNRECOGNIZED DRUG - OTHER] TOP
[2018-08-02] MEDS ORDERED: NEPHROVITE1 TAB ORAL (06:08)
[2018-08-02] MEDS ORDERED: SINEMET 25-1001 EAC1 ORAL (06:08)
[2018-08-02] MEDS ORDERED: EFFEXOR XR37.5 MG ORAL (06:08)
--- NOTE | 2018-08-02 06:31 | Emergency Room Report ---
History of Present Illness General Chief Complaint: Altered Level of Consciousness Source: EMS Present Illness HPI Patient brought in by EMS for altered level of consciousness with fever from a halfway facility. 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 Her graft patient also has a history of chronic kidney disease. Sister states he has no quality of life. The patient was admitted in April for failure to thrive. Discharge diagnoses: 1. Aspiration pneumonia. 2. Dysphagia, status post PEG tube placement. 3. Left leg acute popliteal thrombosis. 4. Leukocytosis. 5. AFib, rate controlled. 6. Acute kidney injury secondary to dehydration. 7. Parkinson disease. 8. 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 9. History of CVA. 10. History of diastolic dysfunction. Allergies: Coded Allergies: MORPHINE (Verified Allergy, Unknown, 03/25/18) PENICILLINS (Verified Allergy, Unknown, 03/05/18) Patient History Limited by: medical condition Past Medical History: see triage record, old chart reviewed Past Surgical History: other - Surgery Social History Narrative halfway facility Reviewed Nursing Documentation: PMH: Agreed; PSxH: Agreed Nursing Documentation-PMH Past Medical History: No History, Except For Hx Cardiac Problems: Yes - A-Fib, Hyperlipidemia Hx Hypertension: Yes Hx COPD: Yes Hx Cancer: No Hx Gastrointestinal Problems: No Hx Neurological Problems: Yes - Parkinson, Neuropathy Hx Cerebrovascular Accident: Yes - 03/29/2018 Hx Dementia: Yes Hx Parkinson's Disease: Yes Review of Systems All Other Systems: limited Physical Exam Vital Signs Date Time Temp Pulse Resp B/P (MAP) Pulse Ox O2 Delivery O2 Flow Rate FiO2 08/02/18 06:00 100.9 105 16 103/54 96 Non-Rebreather 15.0 Sp02 EP Interpretation: reviewed, abnormal - Interpreted as low by me General Appearance: mild distress, lethargic, Chronically Ill Head: normocephalic Eyes: bilateral eye normal inspection, bilateral eye PERRL ENT: moist mucus membranes Neck: supple Respiratory: respiratory distress - minimal, crackles, rales - L lungs Cardiovascular #1: irregularly irregular Cardiovascular #2: 2+ radial (R) Gastrointestinal: non tender, no mass, non-distended, other - feeding tube, decreased bowel sounds Musculoskeletal: back normal, decreased range of motion - due to weakness Neurologic: motor weakness, sensory deficit - not responding to painful stimuli , other - minimally responsive - generalized rigidity Psychiatric: depressed affect - lethargic Skin: warm/dry, other - decubitus sacral and L side stage 3 Procedures Critical Care Time Critical Care Time Total Critical Care Time: 60 min bedside evaluation and treatment excludes procedures (EKG, Intubation). Reason for critical care: sepsis, pna, resp failure, code status discussion Possible complications: hypotension, hypertension, [place], shock, arrhythmias, metabolic acidosis, end organ damage, respiratory failure. Interventions: Fluid resuscitation, antibiotics, repeat exams, intubation, determination level of care Course: Patient presents with fever and hypoxia. Sepsis evaluation and resuscitation. Repeat evaluation with increased work of breathing. Intubation. Thick secretions. Discussion with sister regarding code states - wants DNR. Sedation adequate as well as ABG on vent. Discussed with PMD. Consultations: nursing staff, EMS, family, RT Performed by: Dr. Carlson Tolerated well condition = critical Intubation Intubation : Consent: Emergent Intubation Method: orotracheal Tube Size (cm): 7.5 - 23 cm teeth Medications: Etomidate Breath Sounds after Intubation: equal Intubation Complications: no complications Post Intubation Xray: Yes Attempts: One Patient Tolerated: Well Complications: None Progress Thick secretions in ET Medical Decision Making Diagnostic Impression: Primary Impression: Sepsis Qualified Codes: A41.9 - Sepsis, unspecified organism Additional Impressions: LLL pneumonia Qualified Codes: J18.1 - Lobar pneumonia, unspecified organism Respiratory failure, acute Qualified Codes: J96.01 - Acute respiratory failure with hypoxia; J96.02 - Acute respiratory failure with hypercapnia Dementia Qualified Codes: G20 - Parkinson's disease; F02.80 - Dementia in other diseases classified elsewhere without behavioral disturbance Acute renal failure Qualified Codes: N17.9 - Acute kidney failure, unspecified ER Course Patient presents with fever and hypoxia. Differential includes pneumonia, sepsis, acute myocardial infarction, urinary tract infection amongst others. Patient will be evaluated with EKG, chest x-ray blood gas other labs. Patient will be treated with fluid resuscitation. Most likely he will need antibiotics. EKG with atrial fibrillation with some strain pattern. Chest x-ray with left lower lobe infiltrate. White count is 19,000. ARF Patient satting well on 100% nonrebreather however working to breathe. I we will try on a 50% Ventimask. He may need to be intubated. Patient with increased work with breathing and lower sat. Intubation indicated. Sepsis re-evaluation, BP holding, temp improved, cap fill normal, mentation unchanged. Intubated. Thick secretions. Repeat evaluation - adequate sedation. Discussed with sister (in [place]). Agrees with treatment but wants patient DNR . This was communicated to Dr. Arrington. Admit ICU. Laboratory Tests Test 08/02/18 06:10 08/02/18 06:22 08/02/18 08:15 08/02/18 08:25 White Blood Count 19.1 K/UL (4.8-10.8) H Red Blood Count 5.06 M/UL (4.70-6.10) Hemoglobin 14.3 G/DL (14.2-18.0) Hematocrit 44.3 % (42.0-52.0) Mean Corpuscular Volume 88 FL (80-99) Mean Corpuscular Hemoglobin 28.2 PG (27.0-31.0) Mean Corpuscular Hemoglobin Concent 32.2 G/DL (32.0-36.0) Red Cell Distribution Width 14.7 % (11.6-14.8) Platelet Count 257 K/UL (150-450) Mean Platelet Volume 6.7 FL (6.5-10.1) Neutrophils (%) (Auto) % (45.0-75.0) Lymphocytes (%) (Auto) % (20.0-45.0) Monocytes (%) (Auto) % (1.0-10.0) Eosinophils (%) (Auto) % (0.0-3.0) Basophils (%) (Auto) % (0.0-2.0) Differential Total Cells Counted 100 Neutrophils % (Manual) 85 % (45-75) H Lymphocytes % (Manual) 7 % (20-45) L Monocytes % (Manual) 7 % (1-10) Eosinophils % (Manual) 0 % (0-3) Basophils % (Manual) 1 % (0-2) Band Neutrophils 0 % (0-8) Platelet Estimate Adequate Platelet Morphology Normal Red Blood Cell Morphology Normal Urine Color Yellow Urine Appearance Clear Urine pH 6 (4.5-8.0) Urine Specific [place] 1.020 (1.005-1.035) Urine Protein 4+ (NEGATIVE) H Urine Glucose (UA) Negative (NEGATIVE) Urine Ketones Negative (NEGATIVE) Urine Blood 1+ (NEGATIVE) H Urine Nitrite Negative (NEGATIVE) Urine Bilirubin Negative (NEGATIVE) Urine Urobilinogen Normal MG/DL (0.0-1.0) Urine Leukocyte Esterase Negative (NEGATIVE) Urine RBC 2-4 /HPF (0 - 0) H Urine WBC 0-2 /HPF (0 - 0) Urine Squamous Epithelial Cells Occasional /LPF Urine Bacteria Occasional /HPF (NONE) Urine Hyaline Casts 0-2 /LPF (NONE) H Urine Fine Granular Casts 0-2 /LPF (NONE) H Sodium Level 136 MMOL/L (136-145) Potassium Level 4.7 MMOL/L (3.5-5.1) Chloride Level 100 MMOL/L (98-107) Carbon Dioxide Level 25 MMOL/L (21-32) Anion Gap 11 mmol/L (5-15) Blood Urea Nitrogen 57 mg/dL (7-18) H Creatinine 2.1 MG/DL (0.55-1.30) H Estimate Glomerular Filtration Rate mL/min (>60) Glucose Level 222 MG/DL (74-106) H Lactic Acid Level 2.70 mmol/L (0.4-2.0) H 3.10 mmol/L (0.66-2.22) H Calcium Level 9.8 MG/DL (8.5-10.1) Total Bilirubin 0.4 MG/DL (0.2-1.0) Aspartate Amino Transferase (AST) 28 U/L (15-37) Alanine Aminotransferase (ALT) 23 U/L (12-78) Alkaline Phosphatase 95 U/L (46-116) Total Creatine Kinase 461 U/L (26-308) H Creatine Kinase MB 1.6 NG/ML (0.0-3.6) Creatine Kinase MB Relative Index 0.3 Troponin I 0.036 ng/mL (0.000-0.056) Pro-B-Type Natriuretic Peptide 4699 pg/mL (0-125) H Total Protein 7.9 G/DL (6.4-8.2) Albumin 2.6 G/DL (3.4-5.0) L Globulin 5.3 g/dL Albumin/Globulin Ratio 0.5 (1.0-2.7) L Lipase 225 U/L (73-393) Arterial Blood pH 7.433 (7.350-7.450) 7.364 (7.350-7.450) Arterial Blood Partial Pressure CO2 39.5 mmHg (35.0-45.0) 40.6 mmHg (35.0-45.0) Arterial Blood Partial Pressure O2 140.8 mmHg (75.0-100.0) H 88.0 mmHg (75.0-100.0) Arterial Blood HCO3 25.8 mmol/L (22.0-26.0) 22.6 mmol/L (22.0-26.0) Arterial Blood Oxygen Saturation 98.6 % (95-100) 95.7 % (95-100) Arterial Blood Base Excess 1.5 (-2-2) -2.5 (-2-2) L Edil Test Positive Positive Test 08/02/18 14:00 08/02/18 18:25 White Blood Count 17.8 K/UL (4.8-10.8) H Red Blood Count 4.48 M/UL (4.70-6.10) L Hemoglobin 12.5 G/DL (14.2-18.0) L Hematocrit 39.2 % (42.0-52.0) L Mean Corpuscular Volume 88 FL (80-99) Mean Corpuscular Hemoglobin 27.8 PG (27.0-31.0) Mean Corpuscular Hemoglobin Concent 31.8 G/DL (32.0-36.0) L Red Cell Distribution Width 14.6 % (11.6-14.8) Platelet Count 206 K/UL (150-450) Mean Platelet Volume 6.9 FL (6.5-10.1) Neutrophils (%) (Auto) 82.3 % (45.0-75.0) H Lymphocytes (%) (Auto) 8.4 % (20.0-45.0) L Monocytes (%) (Auto) 8.8 % (1.0-10.0) Eosinophils (%) (Auto) 0.0 % (0.0-3.0) Basophils (%) (Auto) 0.4 % (0.0-2.0) Prothrombin Time 11.4 SEC (9.30-11.50) Prothrombin Time INR 1.1 (0.9-1.1) PTT 31 SEC (23-33) 80 SEC (23-33) H Sodium Level 141 MMOL/L (136-145) Potassium Level 4.3 MMOL/L (3.5-5.1) Chloride Level 106 MMOL/L (98-107) Carbon Dioxide Level 26 MMOL/L (21-32) Anion Gap 9 mmol/L (5-15) Blood Urea Nitrogen 51 mg/dL (7-18) H Creatinine 1.8 MG/DL (0.55-1.30) H Estimate Glomerular Filtration Rate mL/min (>60) Glucose Level 162 MG/DL (74-106) H Calcium Level 8.4 MG/DL (8.5-10.1) L Total Bilirubin 0.5 MG/DL (0.2-1.0) Aspartate Amino Transferase (AST) 38 U/L (15-37) H Alanine Aminotransferase (ALT) 27 U/L (12-78) Alkaline Phosphatase 78 U/L (46-116) Troponin I 0.056 ng/mL (0.000-0.056) Total Protein 5.9 G/DL (6.4-8.2) L Albumin 2.1 G/DL (3.4-5.0) L Globulin 3.8 g/dL Albumin/Globulin Ratio 0.6 (1.0-2.7) L Lactic Acid Level 1.60 mmol/L (0.4-2.0) Microbiology Date/Time Source Procedure Growth Status 08/02/18 06:10 Nasal Nares Influenza Types A,B Antigen ([facility]ELLE) - Final Complete EKG Diagnostic Results Rate: normal Rhythm: other - Atrial fibrillation ST Segments: no acute changes - Nonspecific ST-T wave changes Rhythm Strip Diag. Results Rhythm: no PVC's, no ectopy, other - Atrial fibrillation Chest X-Ray Diagnostic Results Chest X-Ray Diagnostic Results #1: Chest X-Ray Ordered: Yes # of Views/Limited/Complete: 1 View Indication: Shortness of Breath EP Interpretation: Yes Interpretation: no effusion, no pneumothorax, other - LLL infiltrate Impression: Other Electronically Signed by: Electronically signed by Richie Carlson MD Chest X-Ray Diagnostic Results #2: Chest X-Ray Ordered: Yes # of Views/Limited/Complete: 1 View Indication: Other EP Interpretation: Yes Interpretation: no effusion, no pneumothorax, other - ET good placement, L infiltrate Impression: Other Electronically Signed by: Electronically signed by Richie Carlson MD Last Vital Signs Date Time Temp Pulse Resp B/P (MAP) Pulse Ox O2 Delivery O2 Flow Rate FiO2 08/02/18 19:37 86 16 100 Mechanical Ventilator 45 08/02/18 19:00 125/90 (102) 08/02/18 16:00 98.3 08/02/18 10:58 15.0 Status: improved Disposition: ADMITTED INPATIENT Condition: Critical Richie Carlson MD Aug 02, 2018 06:31
[2018-08-02 06:38] LABS: HEMATOCRIT 44.3 % (42.0-52.0); HEMOGLOBIN 14.3 G/DL (14.2-18.0); MEAN CORPUSCULAR VOLUME 88 FL (80-99); PLATELET COUNT 257 K/UL (150-450); RED BLOOD COUNT 5.06 M/UL (4.70-6.10); RED CELL DISTRIBUTION WIDTH 14.7 % (11.6-14.8); WHITE BLOOD COUNT 19.1 K/UL (4.8-10.8)
[2018-08-02] MEDS ORDERED: Acetaminophen 650 MG SUPP RECTAL ONE ×2 (06:41→06:45)
[2018-08-02] MEDS ORDERED: Vancomycin 1 GM in NS 275 ML IVPB ONE (06:45)
[2018-08-02] MEDS ORDERED: Cefepime HCl 1 GM in D5W 55 ML IVPB ONE (06:45)
[2018-08-02 06:58] LABS: APPEARANCE,URINE CLEAR; BILIRUBIN, URINE NEGATIVE (NEGATIVE); COLOR,URINE YELLOW; GLUCOSE, URINE (UA) NEGATIVE (NEGATIVE); KETONES,URINE NEGATIVE (NEGATIVE); LEUKOCYTE ESTERASE ,URINE NEGATIVE (NEGATIVE); NITRITE,URINE NEGATIVE (NEGATIVE); PH,URINE 6 (4.5-8.0); PROTEIN,URINE 4+ (NEGATIVE); UROBILINOGEN,URINE NORMAL MG/DL (0.0-1.0)
--- NOTE | 2018-08-02 07:00 | NUR ---
ER Nurse Note: Pt MIKEY from [facility] c/o altered level of consciousness. Per EMS, the nurse at [facility] stated pt is a&ox4 but found pt to be a&ox0, O2 at 86% RA. On arrival pt is a&ox0, VSS, on non rebreather 15L/hr at 98%O2, rectal temp of 101.0F. Pt hx of a fib and pnuemonia. 2 IV lines established, bilateral forearm; 2L NS infused and antibiotics infusing. Pt was cleaned, found skin tear with redness on sacral; photo taken. Pt has g-tube, clamped with 2ml residual. Pt given tylenol sup; will endorse to take temp. Report given to SHANNON Ricci for continuity of care.
[2018-08-02 07:04] LABS: ANION GAP 11 mmol/L (5-15); BLOOD UREA NITROGEN 57 mg/dL (7-18); CALCIUM 9.8 MG/DL (8.5-10.1); CARBON DIOXIDE 25 MMOL/L (21-32); CHLORIDE 100 MMOL/L (98-107); CREATININE 2.1 MG/DL (0.55-1.30); POTASSIUM 4.7 MMOL/L (3.5-5.1); SODIUM 136 MMOL/L (136-145)
[2018-08-02] MEDS ORDERED: Etomidate 40mg/20ml Inj IV ONE (07:15)
[2018-08-02] MEDS ORDERED: Midazolam for drip 50 MG in NS 90 ML IV ONE (07:15)
[2018-08-02 07:18] LABS: ALANINE AMINOTRANSFERASE 23 U/L (12-78); ALBUMIN 2.6 G/DL (3.4-5.0); ALBUMIN/GLOBULIN RATIO 0.5 (1.0-2.7); ALKALINE PHOSPHATASE 95 U/L (46-116); ASPARTATE AMINO TRANSFERASE 28 U/L (15-37); BILIRUBIN,TOTAL 0.4 MG/DL (0.2-1.0); CKMB 1.6 NG/ML (0.0-3.6); CREATINE KINASE 461 U/L (26-308)
--- NOTE | 2018-08-02 07:21 | NUR ---
patient intubated in trauma @0721. 7.5 ET, 25 at the teeth. Bilateral breath sounds, bilateral chest rise, capnometer good color change. Patient was intubated by Dr. Carlson and placed on mechanical ventilator: AC 500, 16, +5, 50%. All alarms are set and audible, plugged into red outlet, AMBU bag bedside, inline SX intact and working. Will draw post ABG and will continue to monitor patient.
--- NOTE | 2018-08-02 07:25 | NUR ---
ED Nurse Note:pt. was given Etimodate 7mg at 0720 and he was intubated by ER MD at 0721, ET 7.5at 23cm right side of pt's mouth, VSS, pt. tolerated intubation well, breathing had improved, chest x-ray done to conferm intubation
[2018-08-02] MEDS ORDERED: Versed 50mg/D5W 100ml 100 ML IVPB ONE (08:00)
--- NOTE | 2018-08-02 08:00 | NUR ---
ED Nurse Note:started versed drip for sedation on pt, pt. is on mech vent -tolerating well
--- NOTE | 2018-08-02 09:38 | NUR ---
ED Nurse Note:pt. is sleeping , VSS, no signs of respiratory distress noted, increased versed drip by 1mg
--- NOTE | 2018-08-02 10:39 | Infectious Diseases Prog Note ---
Assessment/Plan Problems: (1) LLL pneumonia Assessment & Plan: suspect aspiration, will send sputum culture and start meropenem with vancomycin empirically . aspiration precaution (2) Left arm cellulitis Assessment & Plan: complicated with blisters, already on wide spectrum antibiotics pending cultures , keep arm elevated while in bed (3) Sepsis Assessment & Plan: due to the above, with leukocytosis, will start vancomycin and meropenem, pending blood cultures (4) CKD (chronic kidney disease) Assessment & Plan: continue hydration and renally dosed meds as per pharmacy (5) Renal mass, right Assessment & Plan: poor candidate for surgery (6) Encephalopathy Assessment & Plan: suspect metabolic due to the above, continue hydration with antibiotics , avoid sedatives (7) Acute respiratory failure Assessment & Plan: due to the above , intubated on mechanical ventilation, monitor ABG, and CXR , pulmonary is following Subjective Allergies: Coded Allergies: MORPHINE (Verified Allergy, Unknown, 03/25/18) PENICILLINS (Verified Allergy, Unknown, 03/05/18) Objective Vital Signs Last 24 Hour Vital Signs Date Time Temp Pulse Resp B/P (MAP) Pulse Ox O2 Delivery O2 Flow Rate FiO2 08/02/18 09:43 22 Mechanical Ventilator 50 08/02/18 09:25 92 19 50 08/02/18 09:19 99.3 08/02/18 08:48 91 22 122/75 96 Mechanical Ventilator 50 08/02/18 08:07 20 Mechanical Ventilator 50 08/02/18 08:06 20 Mechanical Ventilator 50 08/02/18 07:51 99.3 08/02/18 07:34 99.3 99 20 133/81 97 Mechanical Ventilator 08/02/18 07:21 105 31 50 08/02/18 07:20 99 20 155/80 92 Non-Rebreather 15.0 08/02/18 06:51 101.0 84 16 103/54 96 Non-Rebreather 15.0 08/02/18 06:51 105 16 Non-Rebreather 15.0 08/02/18 06:00 100.9 105 16 103/54 96 Non-Rebreather 15.0 Height (Feet): 5 Height (Inches): 6.00 Weight (Pounds): 150 Microbiology Date/Time Source Procedure Growth Status 08/02/18 06:10 Nasal Nares Influenza Types A,B Antigen (CHANTELLE) - Final Complete Laboratory Tests Test 08/02/18 06:10 08/02/18 06:22 08/02/18 08:15 08/02/18 08:25 White Blood Count 19.1 K/UL (4.8-10.8) H Red Blood Count 5.06 M/UL (4.70-6.10) Hemoglobin 14.3 G/DL (14.2-18.0) Hematocrit 44.3 % (42.0-52.0) Mean Corpuscular Volume 88 FL (80-99) Mean Corpuscular Hemoglobin 28.2 PG (27.0-31.0) Mean Corpuscular Hemoglobin Concent 32.2 G/DL (32.0-36.0) Red Cell Distribution Width 14.7 % (11.6-14.8) Platelet Count 257 K/UL (150-450) Mean Platelet Volume 6.7 FL (6.5-10.1) Neutrophils (%) (Auto) % (45.0-75.0) Lymphocytes (%) (Auto) % (20.0-45.0) Monocytes (%) (Auto) % (1.0-10.0) Eosinophils (%) (Auto) % (0.0-3.0) Basophils (%) (Auto) % (0.0-2.0) Differential Total Cells Counted 100 Neutrophils % (Manual) 85 % (45-75) H Lymphocytes % (Manual) 7 % (20-45) L Monocytes % (Manual) 7 % (1-10) Eosinophils % (Manual) 0 % (0-3) Basophils % (Manual) 1 % (0-2) Band Neutrophils 0 % (0-8) Platelet Estimate Adequate Platelet Morphology Normal Red Blood Cell Morphology Normal Urine Color Yellow Urine Appearance Clear Urine pH 6 (4.5-8.0) Urine Specific [place] 1.020 (1.005-1.035) Urine Protein 4+ (NEGATIVE) H Urine Glucose (UA) Negative (NEGATIVE) Urine Ketones Negative (NEGATIVE) Urine Blood 1+ (NEGATIVE) H Urine Nitrite Negative (NEGATIVE) Urine Bilirubin Negative (NEGATIVE) Urine Urobilinogen Normal MG/DL (0.0-1.0) Urine Leukocyte Esterase Negative (NEGATIVE) Urine RBC 2-4 /HPF (0 - 0) H Urine WBC 0-2 /HPF (0 - 0) Urine Squamous Epithelial Cells Occasional /LPF Urine Bacteria Occasional /HPF (NONE) Urine Hyaline Casts 0-2 /LPF (NONE) H Urine Fine Granular Casts 0-2 /LPF (NONE) H Sodium Level 136 MMOL/L (136-145) Potassium Level 4.7 MMOL/L (3.5-5.1) Chloride Level 100 MMOL/L (98-107) Carbon Dioxide Level 25 MMOL/L (21-32) Anion Gap 11 mmol/L (5-15) Blood Urea Nitrogen 57 mg/dL (7-18) H Creatinine 2.1 MG/DL (0.55-1.30) H Estimat Glomerular Filtration Rate mL/min (>60) Glucose Level 222 MG/DL (74-106) H Lactic Acid Level 2.70 mmol/L (0.4-2.0) H 3.10 mmol/L (0.66-2.22) H Calcium Level 9.8 MG/DL (8.5-10.1) Total Bilirubin 0.4 MG/DL (0.2-1.0) Aspartate Amino Transf (AST/SGOT) 28 U/L (15-37) Alanine Aminotransferase (ALT/SGPT) 23 U/L (12-78) Alkaline Phosphatase 95 U/L (46-116) Total Creatine Kinase 461 U/L (26-308) H Creatine Kinase MB 1.6 NG/ML (0.0-3.6) Creatine Kinase MB Relative Index 0.3 Troponin I 0.036 ng/mL (0.000-0.056) Pro-B-Type Natriuretic Peptide 4699 pg/mL (0-125) H Total Protein 7.9 G/DL (6.4-8.2) Albumin 2.6 G/DL (3.4-5.0) L Globulin 5.3 g/dL Albumin/Globulin Ratio 0.5 (1.0-2.7) L Lipase 225 U/L (73-393) Arterial Blood pH 7.433 (7.350-7.450) 7.364 (7.350-7.450) Arterial Blood Partial Pressure CO2 39.5 mmHg (35.0-45.0) 40.6 mmHg (35.0-45.0) Arterial Blood Partial Pressure O2 140.8 mmHg (75.0-100.0) H 88.0 mmHg (75.0-100.0) Arterial Blood HCO3 25.8 mmol/L (22.0-26.0) 22.6 mmol/L (22.0-26.0) Arterial Blood Oxygen Saturation 98.6 % (95-100) 95.7 % (95-100) Arterial Blood Base Excess 1.5 (-2-2) -2.5 (-2-2) L Edil Test Positive Positive Current Medications Medications (Trade) Dose Ordered Sig/Colin Route PRN Reason Start Time Stop Time Status Last Admin Dose Admin Meropenem 1 gm/ Sodium Chloride 55 ml @ 110 mls/hr Q8HR IVPB 08/02/18 14:00 08/07/18 13:59 UNV Sodium Chloride 1,000 ml @ 300 mls/hr Q3H20M IV 08/02/18 07:15 09/01/18 07:14 08/02/18 07:31 Srini Sam M.D. Aug 02, 2018 10:39
--- NOTE | 2018-08-02 10:59 | NUR ---
ED Nurse Note:called report to ICU- pt. was transfered to the room condition stable
--- NOTE | 2018-08-02 11:17 | Diagnostic Imaging Report ---
Indication: Post intubation Technique: One view of the chest Comparison: One hour earlier Findings: Interim endotracheal intubation, endotracheal tube tip projecting approximately 4 cm above the cindi in good position. There is left perihilar interstitial and airspace disease which appears increased from the previous exam. There is equivocal increased mild right-sided interstitial disease is less atelectasis at the left lung base The heart size is upper limits normal. The pleural spaces are clear Impression: Satisfactory endotracheal intubation Left perihilar interstitial and airspace edema, new/increased since previous study of one hour earlier. Improved left basilar atelectasis Equivocal right-sided interstitial disease, slightly increased if real
--- NOTE | 2018-08-02 11:18 | Diagnostic Imaging Report ---
Indication: Chest Technique: One view of the chest Comparison: 04/27/2018 Findings: There is some atelectasis in the left lung base. The lungs and pleural spaces are otherwise clear. The heart size is upper limits normal. The aorta is tortuous ectatic and calcified. There is mild central bronchial wall thickening which appears similar to the prior exam, likely chronic. There is questionably a small right pleural effusion. Impression: Left basilar atelectasis Likely chronic central bronchial wall thickening. Possible small right pleural effusion
--- NOTE | 2018-08-02 11:20 | NUR ---
NURSE NOTES: Report received from SHANNON Marin.Patient is a 88 y.o male admitted for sepsis,aloc and encephalopathy. SR on the monitor and afebrile at this time.GT placement intact,HOB elevated to prevent aspiration.Responsive to deep pain.Sline lock RFA/LW/20G with no apparent infiltration.Intubated 7.5 AC 16 Vt500 FiO2 50% and Peep 5.Sacral wound unstageable, picture taken and P200 order.Will continue to monitor
--- NOTE | 2018-08-02 12:23 | NUR ---
NURSE NOTES: called Dr Arrington for order as stated Dr Ryan will put orders with Dr Sam and he will come later to complete orders.Left message to Dr ryan for follow up.
--- NOTE | 2018-08-02 12:48 | Pulmonolgy Critical Care Note ---
Critical Care - Asmt/Plan Problems: (1) Respiratory failure, acute (2) Airway intubation performed without difficulty (3) LLL pneumonia (4) STUART (acute kidney injury) (5) CKD (chronic kidney disease) (6) Dementia (7) Leukocytosis (8) FTT (failure to thrive) in adult (9) Afib Respiratory: monitor respiratory rate, ABG, weaning trial - in am, other - Continue current vent settings, HHN's Cardiac: continue to monitor HR/BP, other - TTE, start IVUH, rate control, EPS/ cards eval Renal: keep IV fluid - NS @ 125, check electrolytes Infectious Disease: check cultures, continue antibiotics - Vanco and Valentino perID Gastrointestinal: start feedings Endocrine: monitor blood sugar Hematologic: monitor H/H Neurologic: keep patient comfortable - ICU sedation Prophylaxis: Protonix, Heparin Disposition: keep in ICU Time Spent (Minutes): 50 Notes Reviewed: ID Discussed with: nurses, consultants Critical Care - Objective Last 24 Hour Vital Signs Date Time Temp Pulse Resp B/P (MAP) Pulse Ox O2 Delivery O2 Flow Rate FiO2 08/02/18 11:10 87 22 50 08/02/18 10:58 99.3 94 22 122/75 96 Mechanical Ventilator 15.0 50 08/02/18 10:57 50 08/02/18 10:56 94 21 135/75 97 Mechanical Ventilator 50 08/02/18 09:43 22 Mechanical Ventilator 50 08/02/18 09:25 92 19 50 08/02/18 09:19 99.3 08/02/18 08:48 91 22 122/75 96 Mechanical Ventilator 50 08/02/18 08:07 20 Mechanical Ventilator 50 08/02/18 08:06 20 Mechanical Ventilator 50 08/02/18 07:51 99.3 08/02/18 07:34 99.3 99 20 133/81 97 Mechanical Ventilator 08/02/18 07:21 105 31 50 08/02/18 07:20 99 20 155/80 92 Non-Rebreather 15.0 08/02/18 06:51 101.0 84 16 103/54 96 Non-Rebreather 15.0 08/02/18 06:51 105 16 Non-Rebreather 15.0 08/02/18 06:00 100.9 105 16 103/54 96 Non-Rebreather 15.0 Status: sedated Condition: critical HEENT: atraumatic, normocephalic Lungs: rhonchi Heart: HR/BP stable, irregular Abdomen: soft, non-tender, active bowel sounds, feeding tube Extremities: no C/C/E Micro: Microbiology Date/Time Source Procedure Growth Status 08/02/18 06:10 Nasal Nares Influenza Types A,B Antigen (CHANTELLE) - Final Complete Critical Care - Subjective ROS Limited/Unobtainable: Yes ICU Day: 1 Intubation Day: 1 Interval Events: 88 M h/o PD, GT, CVA BIB EMS from [place] with AMS, intubated in ER, STUART, PNA, now transferred to ICU, hemodynamically stable. Patient is sedated and comfortable on vent. He has been seen by ID and started on Vanco and Valentino Condition: critical IV Access: peripheral EKG Rhythm: Atrial Fibrillation FI02: 50 Vent Support Breath Rate: 16 Vent Support Mode: AC Vent Tidal Volume: 500 Sputum Amount: Moderate PEEP: 5.0 PIP: 22 Fluids: NS@200 Subjective: SABRINA CXR: ETT L perihilar inf ET-Tube: 7.5 ET Position: 25 Labs: Laboratory Tests Test 08/02/18 06:10 08/02/18 06:22 08/02/18 08:15 08/02/18 08:25 White Blood Count 19.1 K/UL (4.8-10.8) H Red Blood Count 5.06 M/UL (4.70-6.10) Hemoglobin 14.3 G/DL (14.2-18.0) Hematocrit 44.3 % (42.0-52.0) Mean Corpuscular Volume 88 FL (80-99) Mean Corpuscular Hemoglobin 28.2 PG (27.0-31.0) Mean Corpuscular Hemoglobin Concent 32.2 G/DL (32.0-36.0) Red Cell Distribution Width 14.7 % (11.6-14.8) Platelet Count 257 K/UL (150-450) Mean Platelet Volume 6.7 FL (6.5-10.1) Neutrophils (%) (Auto) % (45.0-75.0) Lymphocytes (%) (Auto) % (20.0-45.0) Monocytes (%) (Auto) % (1.0-10.0) Eosinophils (%) (Auto) % (0.0-3.0) Basophils (%) (Auto) % (0.0-2.0) Differential Total Cells Counted 100 Neutrophils % (Manual) 85 % (45-75) H Lymphocytes % (Manual) 7 % (20-45) L Monocytes % (Manual) 7 % (1-10) Eosinophils % (Manual) 0 % (0-3) Basophils % (Manual) 1 % (0-2) Band Neutrophils 0 % (0-8) Platelet Estimate Adequate Platelet Morphology Normal Red Blood Cell Morphology Normal Urine Color Yellow Urine Appearance Clear Urine pH 6 (4.5-8.0) Urine Specific [place] 1.020 (1.005-1.035) Urine Protein 4+ (NEGATIVE) H Urine Glucose (UA) Negative (NEGATIVE) Urine Ketones Negative (NEGATIVE) Urine Blood 1+ (NEGATIVE) H Urine Nitrite Negative (NEGATIVE) Urine Bilirubin Negative (NEGATIVE) Urine Urobilinogen Normal MG/DL (0.0-1.0) Urine Leukocyte Esterase Negative (NEGATIVE) Urine RBC 2-4 /HPF (0 - 0) H Urine WBC 0-2 /HPF (0 - 0) Urine Squamous Epithelial Cells Occasional /LPF Urine Bacteria Occasional /HPF (NONE) Urine Hyaline Casts 0-2 /LPF (NONE) H Urine Fine Granular Casts 0-2 /LPF (NONE) H Sodium Level 136 MMOL/L (136-145) Potassium Level 4.7 MMOL/L (3.5-5.1) Chloride Level 100 MMOL/L (98-107) Carbon Dioxide Level 25 MMOL/L (21-32) Anion Gap 11 mmol/L (5-15) Blood Urea Nitrogen 57 mg/dL (7-18) H Creatinine 2.1 MG/DL (0.55-1.30) H Estimat Glomerular Filtration Rate mL/min (>60) Glucose Level 222 MG/DL (74-106) H Lactic Acid Level 2.70 mmol/L (0.4-2.0) H 3.10 mmol/L (0.66-2.22) H Calcium Level 9.8 MG/DL (8.5-10.1) Total Bilirubin 0.4 MG/DL (0.2-1.0) Aspartate Amino Transf (AST/SGOT) 28 U/L (15-37) Alanine Aminotransferase (ALT/SGPT) 23 U/L (12-78) Alkaline Phosphatase 95 U/L (46-116) Total Creatine Kinase 461 U/L (26-308) H Creatine Kinase MB 1.6 NG/ML (0.0-3.6) Creatine Kinase MB Relative Index 0.3 Troponin I 0.036 ng/mL (0.000-0.056) Pro-B-Type Natriuretic Peptide 4699 pg/mL (0-125) H Total Protein 7.9 G/DL (6.4-8.2) Albumin 2.6 G/DL (3.4-5.0) L Globulin 5.3 g/dL Albumin/Globulin Ratio 0.5 (1.0-2.7) L Lipase 225 U/L (73-393) Arterial Blood pH 7.433 (7.350-7.450) 7.364 (7.350-7.450) Arterial Blood Partial Pressure CO2 39.5 mmHg (35.0-45.0) 40.6 mmHg (35.0-45.0) Arterial Blood Partial Pressure O2 140.8 mmHg (75.0-100.0) H 88.0 mmHg (75.0-100.0) Arterial Blood HCO3 25.8 mmol/L (22.0-26.0) 22.6 mmol/L (22.0-26.0) Arterial Blood Oxygen Saturation 98.6 % (95-100) 95.7 % (95-100) Arterial Blood Base Excess 1.5 (-2-2) -2.5 (-2-2) L Edil Test Positive Positive Messi Patel MD Aug 02, 2018 12:48
[2018-08-02] MEDS ORDERED: Albuterol/Ipratropium 3ml neb HHN PRN (13:00)
[2018-08-02] MEDS ORDERED: LORazepam Inj 2mg/ml 1ml IV PRN (13:46)
[2018-08-02] MEDS: Albuterol/Ipratropium 3ml neb HHN SCH ×2 (13:56→19:41)
[2018-08-02] MEDS ORDERED: Heparin 5000 units/ml inj IV SCH ×2 (13:58→21:30)
[2018-08-02] MEDS ORDERED: Heparin 25,000u/D5W 500ml 500 ML IV SCH ×2 (13:59→21:30)
[2018-08-02 14:16] LABS: BASOPHILS % (AUTO) 0.4 % (0.0-2.0); HEMATOCRIT 39.2 % (42.0-52.0); HEMOGLOBIN 12.5 G/DL (14.2-18.0); LYMPHOCYTES % (AUTO) 8.4 % (20.0-45.0); MEAN CORPUSCULAR VOLUME 88 FL (80-99); MONOCYTES % (AUTO) 8.8 % (1.0-10.0); NEUTROPHILS % (AUTO) 82.3 % (45.0-75.0); PLATELET COUNT 206 K/UL (150-450); RED BLOOD COUNT 4.48 M/UL (4.70-6.10); RED CELL DISTRIBUTION WIDTH 14.6 % (11.6-14.8); WHITE BLOOD COUNT 17.8 K/UL (4.8-10.8)
[2018-08-02] MEDS: Meropenem 500 MG in NS 55 ML IVPB SCH (14:18)
[2018-08-02 14:29] LABS: ALANINE AMINOTRANSFERASE 27 U/L (12-78); ALBUMIN 2.1 G/DL (3.4-5.0); ALBUMIN/GLOBULIN RATIO 0.6 (1.0-2.7); ALKALINE PHOSPHATASE 78 U/L (46-116); ANION GAP 9 mmol/L (5-15); ASPARTATE AMINO TRANSFERASE 38 U/L (15-37); BILIRUBIN,TOTAL 0.5 MG/DL (0.2-1.0); BLOOD UREA NITROGEN 51 mg/dL (7-18); CALCIUM 8.4 MG/DL (8.5-10.1); CARBON DIOXIDE 26 MMOL/L (21-32); CHLORIDE 106 MMOL/L (98-107); CREATININE 1.8 MG/DL (0.55-1.30); POTASSIUM 4.3 MMOL/L (3.5-5.1); SODIUM 141 MMOL/L (136-145)
[2018-08-02 14:32] LABS: INR 1.1 (0.9-1.1)
--- NOTE | 2018-08-02 15:36 | NUR ---
NURSE NOTES: Pt seen by Dr Sandhu and made aware poor urine output and bladder scan 572.Ok to insert arellano.Order noted and carried out
--- NOTE | 2018-08-02 16:08 | NUR ---
NURSE NOTES: ADLs done,pt turned and repositioned.Kept clean and dry.HOB elevated to prevent aspiration.Call light within easy reach.Kept on close monitoring
--- NOTE | 2018-08-02 16:56 | Cardiology Report ---
APPROVED REPORT EXAM: Two-dimensional and M-mode echocardiogram with Doppler and color Doppler. INDICATION Atrial Fibrillation M-Mode DIMENSIONS IVSd1.7 (0.7-1.1cm)Left Atrium (MM)4.0 (1.6-4.0cm) LVDd3.9 (3.5-5.6cm)Aortic Root2.8 (2.0-3.7cm) PWd1.4 (0.7-1.1cm)Aortic Cusp Exc.1.5 (1.5-2.0cm) LVDs2.5 (2.5-4.0cm) PWs1.9 cm Technically difficult study due to patient on ventilator. Study quality precludes accurate assessment of regional wall motion. Normal left ventricular chamber size, systolic function and wall motion to extent visualized. Left ventricular ejection fraction estimated to be grossly normal. Mild left ventricular hypertrophy. No evidence of pericardial effusion. All other cardiac chamber sizes are within normal limits. Aortic valve calcification with decreased cusp excursion c/w aortic stenosis. Mildly thickened mitral valve leaflets with normal excursion. Mild mitral annulus and aortic root calcification. Pulmonic valve not visualized. Normal tricuspid valve structure. IVC measured at 2.1 cm without physiological collapse. A color flow and spectral Doppler study was performed and revealed: Trace aortic insufficiency. Peak aortic valve gradient of 25 mmHg and a mean of 13 mmHg. Aortic valve area 1.2 cm2 calculated by continuity equation. Trace mitral regurgitation. Left ventricular diastolic function could not be determined due to A-Fib. Mild tricuspid regurgitation. Tricuspid systolic velocities suggests peak right ventricular systolic pressure of 29 mmHg.
--- NOTE | 2018-08-02 17:08 | NUR ---
NURSE NOTES: Left message to Dr Arrington regarding DVT result.Awaiting call back
--- NOTE | 2018-08-02 17:24 | Cardiology Report ---
APPROVED REPORT EKG Measurement Heart [id number] Atrial fibrillation Nonspecific ST and T wave abnormality Abnormal ECG
--- NOTE | 2018-08-02 17:56 | NUR ---
NURSE NOTES: Received call back from Dr Arrington with order to continue heparin drip.
--- NOTE | 2018-08-02 18:15 | NUR ---
NURSE NOTES: P200 mattress installed.Pt turned and repositioned.Kept clean and dry. Will continue to monitor Addendum: 08/02/18 at 1847 by Odalis Fontana RN Left message to Dr Trotter answering service for consult.Spoke to Billie
--- NOTE | 2018-08-02 18:51 | NUR ---
CASE MANAGEMENT: REVIEW 88/M BIBA FROM [facility] CC: ALOC SI: SEPSIS . ENCEPHALOPATHY . LLL PNEUMONIA T 101.0 HR 105 RR 31 BP 155/80 SAT 96% MECH VENT FIO2 50 WBC 19.1 LACTIC ACID 3.10 XRAY CHEST 1V - LEFT BASILAR ATELECTASIS IS: NS IVF BOLUS X1 TYLENOL RECTAL X1 LEVOFLOXACIN IV X1 CEFEPIME IV X1 VANCO IV X1 VERSED IV X1 AMIDATE IV X1 PATIENT ADMITTED TO ICU 08/02/2018 DCP: PATIENT IS FROM [facility]
--- NOTE | 2018-08-02 19:05 | NUR ---
HAND-OFF: Report given to SHANNON Servin.
--- NOTE | 2018-08-02 19:30 | NUR ---
NURSE NOTES: Received pt in no apparent distress. Asleep but withdraws to painful stimuli. Remains orally intubated with #7.5 ETT placed over left lip at 23cm with vent settings of AC [id number] fiO2.45 peep 5; saturating 97-99. Secretions copious, with red specks orally and via ETT. Afib on the monitor, afebrile; BP stable. PIV site on left forearm area swollen and reddish; right FA PIV site patent; Heparin gtt infuses at 18units/kg/h, Main IV of NS infuses at 125ml/h. GT intact but clamped; pt still NPO. FC patent. Pt on P200 bed due to skin injury at the buttocks/sacral area. Will monitor for any signs of bleeding; monitor PTT and vital signs and adjust Heparin gtt dose per protocol.
--- NOTE | 2018-08-02 20:30 | NUR ---
NURSE NOTES: Inserted a new PIV on right hand using g22 angiocath. Infused NS via this line.
[2018-08-02] MEDS ORDERED: Heparin 5000 units/ml inj SUBQ SCH (21:00)
--- NOTE | 2018-08-02 21:15 | NUR ---
NURSE NOTES: PTT 61. Rx called to adjust dose of Heparin. New rate is 20units/kg/h; a bolus of 3000 units given. Ordered timed PTT for 0330
--- NOTE | 2018-08-02 21:45 | History and Physical Report ---
DATE OF ADMISSION: 08/02/2018 HISTORY OF PRESENT ILLNESS: This is an 88-year-old male who was brought in by EMS for altered mental consciousness and high fever from [facility]. The patient has a long history of Parkinson's dementia and chronic atrial fibrillation with renal mass and obesity with gait instability. He also has history of CVA. He has been on tube feeding due to dysphagia and history of aspiration pneumonia previously. The patient is currently intubated and in ICU for treatment of aspiration pneumonia with intravenous antibiotic, meropenem and vancomycin. He also has a history of left leg popliteal thrombosis that was present back in 04/2018. PAST MEDICAL HISTORY: Includes history of Parkinson's dementia, chronic kidney disease, history of trochanteric fracture of left femur, history of chronic atrial fibrillation with history of rapid ventricular rate, currently rate controlled, hyperlipidemia, gait instability, depression, neuropathy, CVA, renal mass, and history of GI bleed. PAST SURGICAL HISTORY: Includes a history of left femur surgery, status post fracture. FAMILY HISTORY: Noncontributory. ALLERGIES: No known drug allergies. REVIEW OF SYSTEMS: Negative except per history of present illness. General: NAD, intubated and sedated HEENT: AT, NC, EOMI, throat clear Neck: supple, No lymphadenopathy CVS: Irregularly Irregular, no murmur Lungs: Rhonchi on lt lower lung, no wheezing Abd: soft, NT, ND, no hepatospleenomegally Ext: no Edema, no C/C. Skin: no rash, warm skin over hands Neuro: does not respond to commend, sedated and Intubated LABORATORY AND DIAGNOSTIC DATA: Include WBC 19.1, hemoglobin 14.3, hematocrit 44.3, platelets 267, neutrophil 82.3, and lymphocytes 8.4. Chemistry showed 136, potassium 4.7, chloride 100, bicarb 25, BUN 57, creatinine 2.1, glucose 222. AST 28, ALT 23, creatine kinase 461, alkaline phosphatase is 95. BNP 4699. Albumin 2.6, and lipase 225. PT 11.4, INR 1.1, PTT 31. UA showed +4 urine protein, +1 urine blood, 2 to 4 rbcs, 0 to 2 wbc, hyaline casts 0 to 2, fine granular casts 0 to 2. Chest x-ray showed left basilar atelectasis and possible small right pleural effusion. Impression: 1. Acute Respiratory failure - intubated and in ICU. Pulm consult done. 2. Asp Pneumonia and possible sepsis - Cont IV ABX meripenem and Vanco per ID. follow cultures. ID consult done. 3. Chronic A fib - rate controlled - cardiology consult ordered. will continue outpatient meds for now. 4. Parkinson dementia - restart home meds. 5. Chronic Lt leg Popliteal thrombosis - off anticoagulation due to high risk of bleeding and previous hx of GI bleeding. check Duplex U/S of lower ext to re evaluate for DVT. 6. Chronic kidney disease - stable. 7. Hx of renal mass - family refused the work up last admission. currently DNR. 8. Hx of CVA with one sided hemiplegia 9. Depression - cont home meds. 10. Neuropathy - stable. 11. Hyperlipidemia - cont home med. The patient will be admitted for minimum of two-night stay for the diagnosis of left lower lobe pneumonia and acute respiratory failure. Shelby Arrington M.D. DR: LUIS JOB#: [id number] CC: CINDY
--- NOTE | 2018-08-02 23:00 | NUR ---
NURSE NOTES: Endorsement received from SHANNON Servin for continuity of care. Patient has no eye opening, withdraws to pain. Orally intubated with ET 7.5 23 lipline. AC 16, Vt 500, PEEP 5, 45% FiO2. GT patent and intact. On NPO. Park Catheter F16 connected to urimeter. Right forearm g20 and right hand g22. Receiving IVF [id number], Heparin drip 20units/kg/hr. Sacral dressing dry intact. Noted left hand swollen and with scattered blisters, kept elevated. On P200 mattress. Head of bed elevated. Bed alarm on, locked and in low position.
--- NOTE | 2018-08-02 23:00 | NUR ---
NURSE NOTES: Calm, asleep; oral care and suctioning done. had 1 small amt of BM. Sacral wound dressing dry and intact. Redressed GT exit site; site looks clean and dry. Heparin gtt continues at 20units/kg/h. Left hand blister intact. Hand off to Hilary Valiente RN
[2018-08-03] VITALS (24 sets, daily range): BP systolic 109–160; BP diastolic 58–98
--- NOTE | 2018-08-03 | NUR ---
NURSE NOTES: Secretions suctioned. Noted with thick, copious secretions, brownish/pinkish in color.
[2018-08-03] MEDS: Albuterol/Ipratropium 3ml neb HHN SCH ×4 (01:19→19:03)
--- NOTE | 2018-08-03 02:00 | NUR ---
NURSE NOTES: Still on heparin drip 20 units/kg/hr. No signs of bleeding noted.
--- NOTE | 2018-08-03 02:30 | NUR ---
NURSE NOTES: Urine and sputum collected for C&S.
[2018-08-03] MEDS: Meropenem 500 MG in NS 55 ML IVPB SCH (02:31)
[2018-08-03] MEDS ORDERED: Heparin 5000 units/ml inj IV SCH (05:00)
[2018-08-03] MEDS ORDERED: Heparin 25,000u/D5W 500ml 500 ML IV SCH ×2 (05:00→12:30)
--- NOTE | 2018-08-03 05:00 | NUR ---
NURSE NOTES: PTT results available, Heparin bolus dose 5,500 units IVPO given, drip increased to 24 units/kg/hr. Next PTT timed at 1100H.
--- NOTE | 2018-08-03 05:30 | NUR ---
NURSE NOTES: Bed bath, change of linens and dressings done.
[2018-08-03 06:18] LABS: BASOPHILS % (AUTO) 0.8 % (0.0-2.0); EOSINOPHILS % (AUTO) 1.2 % (0.0-3.0); HEMATOCRIT 35.8 % (42.0-52.0); HEMOGLOBIN 11.4 G/DL (14.2-18.0); LYMPHOCYTES % (AUTO) 11.6 % (20.0-45.0); MEAN CORPUSCULAR VOLUME 88 FL (80-99); MONOCYTES % (AUTO) 8.6 % (1.0-10.0); NEUTROPHILS % (AUTO) 77.8 % (45.0-75.0); PLATELET COUNT 175 K/UL (150-450); RED BLOOD COUNT 4.07 M/UL (4.70-6.10); RED CELL DISTRIBUTION WIDTH 14.6 % (11.6-14.8); WHITE BLOOD COUNT 11.3 K/UL (4.8-10.8)
[2018-08-03 06:34] LABS: ALANINE AMINOTRANSFERASE 26 U/L (12-78); ALBUMIN/GLOBULIN RATIO 0.4 (1.0-2.7); ALKALINE PHOSPHATASE 77 U/L (46-116); ANION GAP 9 mmol/L (5-15); ASPARTATE AMINO TRANSFERASE 38 U/L (15-37); BILIRUBIN,TOTAL 0.3 MG/DL (0.2-1.0); BLOOD UREA NITROGEN 45 mg/dL (7-18); CALCIUM 8.9 MG/DL (8.5-10.1); CARBON DIOXIDE 25 MMOL/L (21-32); CHLORIDE 108 MMOL/L (98-107); CREATININE 1.7 MG/DL (0.55-1.30); POTASSIUM 4.1 MMOL/L (3.5-5.1); SODIUM 142 MMOL/L (136-145)
--- NOTE | 2018-08-03 07:00 | NUR ---
RESPIRATORY NOTE: Received Patient on Vent ACVC RR 16, VT 500, FIO2 40%, PEEP +5. Patient is intubated with a 7.5 ETT with a 25cm lip line, secured with anchorfast. Diminished/ rhonchi breath sounds heard bilaterally throughout both lung morales. Patient obtundent lying in bed. Vent plugged into red outlet. Will continue to monitor throughout the day.
--- NOTE | 2018-08-03 07:15 | NUR ---
HAND-OFF: Report given to Margaret egan RN.
--- NOTE | 2018-08-03 07:16 | NUR ---
NURSE NOTES: Report received from SHANNON Montes. Pt is sleeping in bed. Does not open eyes but withdraws to pain. A-fib on presser hand with HR 90-100's noted. Orally intubated. ETT 7.5/23cm at lip line. AC 16, TV 500, FiO2 40%, P 5. No respiratory distress noted. O2 sat 98-99%. Scan amount of bloody secretion noted while doing oral care. No other bleeding noted. G tube in place. Kept NPO as per order. Park in place draining to gravity. Dressing on sacrum dry and intact. Left hand edematous and weeping. IV to right FA G20 and right hand G 22 patent and asymptomatic. Pt is on Heparin drip at 24 unit/kg/hr and NS at 125cc/hr. Bed in lowest position. Side rails up x3. Will resume plan of care.
[2018-08-03] MEDS: Heparin 25,000u/D5W 500ml 500 ML IV SCH ×2 (07:21→09:21)
--- NOTE | 2018-08-03 08:00 | NUR ---
NURSE NOTES: Spoke with Dwight pharmacist, regarding pt's weight 97.5kg by bed scale. Dose adjusted by pharmacist and rescanned Heparin bag.
[2018-08-03] MEDS ORDERED: Vancomycin 1gm/D5W 275ml IVPB SCH ×2 (08:30)
--- NOTE | 2018-08-03 08:55 | NUR ---
NURSE NOTES: Dr Trotter here to see the patient. Updated him with pt's current condition. Order to continue Cardizem but changed frequency received, noted, and carried out.
--- NOTE | 2018-08-03 09:15 | NUR ---
Weaning not done bc patient newly intubated.
[2018-08-03] MEDS: Pantoprazole Inj IVP SCH (09:20)
[2018-08-03] MEDS: dilTIAZem HCl CD 240mg cap ORAL SCH (09:23)
--- NOTE | 2018-08-03 10:09 | NUR ---
NURSE NOTES: Turned and repositioned pt. Oral care done. Left hand dressing changed since it was weeping. Left arm elevated with pillow. No acute distress noted.
[2018-08-03 11:49] LABS: PHOSPHORUS 3.3 MG/DL (2.5-4.9)
--- NOTE | 2018-08-03 12:15 | NUR ---
NURSE NOTES: Turned and repositioned pt. Oral care done. Scant amount of bleeding noted from mouth. No acute reparatory distress noted. Afebrile. Awaiting PTT result from lab.
--- NOTE | 2018-08-03 12:56 | NUR ---
NURSE NOTES: Notified Dr Trotter regarding frequent PVCs and couple beats of V tach at times. Order for Mg 1g received, noted, and carried out.
--- NOTE | 2018-08-03 13:40 | NUR ---
NURSE NOTES: Dr Sam at bedside, assessing the patient. Dr Sam spoke with Dr Cary on the phone. Orders from Dr Sam and Dr Arrington received, noted and carried out.
[2018-08-03] MEDS: Meropenem 1gm/NS 110ml IVPB SCH ×2 (13:48)
--- NOTE | 2018-08-03 14:14 | Infectious Diseases Prog Note ---
Assessment/Plan Problems: (1) LLL pneumonia Assessment & Plan: suspect aspiration, await sputum culture and continue meropenem with vancomycin empirically . aspiration precaution (2) Left arm cellulitis Assessment & Plan: complicated with blisters, already on wide spectrum antibiotics pending cultures , keep arm elevated while in bed, obtain venous doppler (3) Sepsis Assessment & Plan: due to the above, with gram positive cocci in clustures , source? left hand cellulitis VS pneumonia VS sacral pressure wound , already on vancomycin and meropenem, pending final blood cultures . will order ECHO for valve vegetations (4) CKD (chronic kidney disease) Assessment & Plan: continue hydration and renally dosed meds as per pharmacy (5) Renal mass, right Assessment & Plan: poor candidate for surgery (6) Encephalopathy Assessment & Plan: suspect metabolic due to the above, continue hydration with antibiotics , avoid sedatives (7) Acute respiratory failure Assessment & Plan: due to the above , intubated on mechanical ventilation, monitor ABG, and CXR , pulmonary is following Subjective ROS Limited/Unobtainable: Yes Allergies: Coded Allergies: MORPHINE (Verified Allergy, Unknown, 03/25/18) PENICILLINS (Verified Allergy, Unknown, 03/05/18) Subjective He was more awake and responsive , but still intubated on mechanical ventilation , afebrile. with blisters in his left hand Objective Vital Signs Last 24 Hour Vital Signs Date Time Temp Pulse Resp B/P (MAP) Pulse Ox O2 Delivery O2 Flow Rate FiO2 08/03/18 12:57 86 22 99 Mechanical Ventilator 40 08/03/18 12:54 87 19 40 08/03/18 12:50 84 18 99 Mechanical Ventilator 40 08/03/18 12:50 40 08/03/18 12:00 Mechanical Ventilator Mechanical Ventilator 08/03/18 12:00 40 08/03/18 12:00 98.1 80 16 157/85 (109) 100 08/03/18 11:35 91 08/03/18 11:00 99 20 155/98 (117) 99 08/03/18 11:00 94 19 136/85 (102) 100 08/03/18 10:39 90 18 40 08/03/18 10:00 94 19 136/85 (102) 100 08/03/18 09:23 98 143/85 08/03/18 09:14 96 18 40 08/03/18 09:00 93 18 143/85 (104) 99 08/03/18 08:00 40 08/03/18 08:00 98.2 100 21 149/78 (101) 91 08/03/18 08:00 Mechanical Ventilator Mechanical Ventilator 08/03/18 07:25 99 08/03/18 07:02 104 16 100 Mechanical Ventilator 40 08/03/18 07:00 97 16 160/94 (116) 100 08/03/18 06:56 85 18 40 50 08/03/18 06:55 95 16 100 Mechanical Ventilator 40 08/03/18 06:55 40 08/03/18 06:00 89 17 130/85 (100) 97 08/03/18 05:29 102 20 40 50 08/03/18 05:00 99 21 158/98 (118) 100 08/03/18 04:00 98.7 91 19 125/75 (92) 99 08/03/18 04:00 96 08/03/18 04:00 Mechanical Ventilator 08/03/18 04:00 40 08/03/18 03:29 98 19 40 50 08/03/18 03:00 101 19 119/71 (87) 97 08/03/18 02:00 93 16 149/97 (114) 98 08/03/18 01:28 99 16 100 Mechanical Ventilator 40 08/03/18 01:18 91 17 98 Mechanical Ventilator 40 08/03/18 01:17 91 17 40 50 08/03/18 01:00 91 17 124/87 (99) 98 08/03/18 00:00 40 08/03/18 00:00 91 08/03/18 00:00 Mechanical Ventilator 08/03/18 00:00 99.0 91 17 113/78 (90) 98 08/02/18 23:08 87 18 40 50 08/02/18 23:00 89 17 111/76 (88) 98 08/02/18 22:00 92 19 127/82 (97) 97 08/02/18 21:13 88 18 45 50 08/02/18 21:00 89 18 125/77 (93) 97 08/02/18 20:00 45 08/02/18 20:00 93 08/02/18 20:00 98.1 88 18 128/81 (97) 96 08/02/18 20:00 Mechanical Ventilator 08/02/18 19:37 86 16 100 Mechanical Ventilator 45 08/02/18 19:27 90 17 97 Mechanical Ventilator 45 08/02/18 19:27 84 17 45 50 08/02/18 19:00 94 18 125/90 (102) 98 08/02/18 18:00 76 21 121/82 (95) 98 08/02/18 17:00 87 17 111/76 (88) 97 08/02/18 16:57 93 20 50 08/02/18 16:00 Mechanical Ventilator 08/02/18 16:00 98.3 87 20 114/77 (89) 98 08/02/18 16:00 83 08/02/18 16:00 50 08/02/18 15:00 87 20 118/80 (93) 98 08/02/18 14:55 91 19 50 Height (Feet): 5 Height (Inches): 6.00 Weight (Pounds): 215 General Appearance: WD/WN, no acute distress HEENT: normocephalic, atraumatic, anicteric, mucous membranes moist, PERRL, EOMI, pharynx normal, supple, no JVD, status post trach Respiratory/Chest: chest wall non-tender, lungs clear, normal breath sounds, no respiratory distress, no accessory muscle use Cardiovascular: normal peripheral pulses, normal rate, regular rhythm, no gallop/murmur, no JVD Abdomen: soft, non tender, no organomegaly, no mass, no scars, hypoactive bowel sounds, distended Genitourinary: normal external genitalia Extremities: no cyanosis, no clubbing Skin: no ulcers, rash, lesions, ulcers, other - left hand blisters Neurologic/Psychiatric: alert, responsive Lymphatic: no neck adenopathy, no groin adenopathy Musculoskeletal: normal muscle bulk, no effusion Microbiology Date/Time Source Procedure Growth Status 08/02/18 06:10 Blood Blood Culture - Preliminary Resulted 08/02/18 06:10 Blood Blood Culture - Preliminary Resulted 08/02/18 06:10 Nasal Nares Influenza Types A,B Antigen (CHANTELLE) - Final Complete Laboratory Tests Test 08/02/18 18:25 08/02/18 20:25 08/03/18 03:35 08/03/18 06:00 Activated Partial Thromboplast Time 80 SEC (23-33) H 61 SEC (23-33) H 42 SEC (23-33) H Lactic Acid Level 1.60 mmol/L (0.4-2.0) White Blood Count 11.3 K/UL (4.8-10.8) H Red Blood Count 4.07 M/UL (4.70-6.10) L Hemoglobin 11.4 G/DL (14.2-18.0) L Hematocrit 35.8 % (42.0-52.0) L Mean Corpuscular Volume 88 FL (80-99) Mean Corpuscular Hemoglobin 28.1 PG (27.0-31.0) Mean Corpuscular Hemoglobin Concent 31.9 G/DL (32.0-36.0) L Red Cell Distribution Width 14.6 % (11.6-14.8) Platelet Count 175 K/UL (150-450) Mean Platelet Volume 6.9 FL (6.5-10.1) Neutrophils (%) (Auto) 77.8 % (45.0-75.0) H Lymphocytes (%) (Auto) 11.6 % (20.0-45.0) L Monocytes (%) (Auto) 8.6 % (1.0-10.0) Eosinophils (%) (Auto) 1.2 % (0.0-3.0) Basophils (%) (Auto) 0.8 % (0.0-2.0) Sodium Level 142 MMOL/L (136-145) Potassium Level 4.1 MMOL/L (3.5-5.1) Chloride Level 108 MMOL/L (98-107) H Carbon Dioxide Level 25 MMOL/L (21-32) Anion Gap 9 mmol/L (5-15) Blood Urea Nitrogen 45 mg/dL (7-18) H Creatinine 1.7 MG/DL (0.55-1.30) H Estimat Glomerular Filtration Rate mL/min (>60) Glucose Level 118 MG/DL (74-106) H Calcium Level 8.9 MG/DL (8.5-10.1) Total Bilirubin 0.3 MG/DL (0.2-1.0) Aspartate Amino Transf (AST/SGOT) 38 U/L (15-37) H Alanine Aminotransferase (ALT/SGPT) 26 U/L (12-78) Alkaline Phosphatase 77 U/L (46-116) Total Protein 6.5 G/DL (6.4-8.2) Albumin 2.0 G/DL (3.4-5.0) L Globulin 4.5 g/dL Albumin/Globulin Ratio 0.4 (1.0-2.7) L Random Vancomycin Level 5.6 ug/mL Test 08/03/18 11:00 Activated Partial Thromboplast Time 99 SEC (23-33) H Phosphorus Level 3.3 MG/DL (2.5-4.9) Magnesium Level 1.9 MG/DL (1.8-2.4) Current Medications Medications (Trade) Dose Ordered Sig/Colin Route PRN Reason Start Time Stop Time Status Last Admin Dose Admin Acetaminophen (Tylenol) 650 mg Q6H PRN ORAL Mild Pain/Temp > 100.5 08/02/18 13:00 09/01/18 12:59 Albuterol/ Ipratropium (Albuterol/ Ipratropium) 3 ml Q4H PRN HHN Shortness of Breath 08/02/18 13:00 08/07/18 12:59 Albuterol/ Ipratropium (Albuterol/ Ipratropium) 3 ml Q6HRT HHN 08/02/18 13:00 08/07/18 12:59 08/03/18 12:59 Atorvastatin Calcium (Lipitor) 20 mg BEDTIME ORAL 08/03/18 21:00 09/02/18 20:59 Carbidopa/Levodopa (Sinemet 25/100) 1 tab THREE TIMES A DAY ORAL 08/03/18 18:00 09/02/18 17:59 Diltiazem HCl (Cardizem CD) 240 mg DAILY ORAL 08/03/18 10:00 09/02/18 09:59 08/03/18 09:23 Gabapentin (Neurontin) 100 mg QHS ORAL 08/03/18 21:00 09/02/18 20:59 Lorazepam (Ativan 2mg/ml 1ml) 1 mg Q4H PRN IV For Anxiety 08/02/18 13:46 08/09/18 13:45 Magnesium Sulfate 100 ml @ 100 mls/hr ONCE IVPB 08/03/18 13:00 08/03/18 14:30 Meropenem 1 gm/ Sodium Chloride 110 ml @ 220 mls/hr Q12HR@0200,1400 IVPB 08/03/18 14:00 08/08/18 13:59 08/03/18 13:48 Ondansetron HCl (Zofran) 4 mg Q6H PRN IVP Nausea & Vomiting 08/02/18 13:00 09/01/18 12:59 Pantoprazole (Protonix) 40 mg DAILY IVP 08/03/18 09:00 09/02/18 08:59 08/03/18 09:20 Sodium Chloride 1,000 ml @ 125 mls/hr Q8H IV 08/02/18 13:00 09/01/18 12:59 08/03/18 13:48 Tamsulosin HCl (Flomax) 0.4 mg BEDTIME ORAL 08/03/18 21:00 09/02/18 20:59 Vancomycin HCl (Vanco rx to dose) 1 ea DAILY PRN MISC Per rx protocol 08/02/18 10:45 09/01/18 10:44 Vancomycin HCl 1 gm/Dextrose 275 ml @ 183.708 mls/hr Q48H IVPB 08/03/18 08:30 08/08/18 08:29 08/03/18 09:20 Venlafaxine HCl (Effexor-XR) 37.5 mg DAILY ORAL 08/04/18 09:00 09/03/18 08:59 Vitamin B Complex/ Vit C/Folic Acid (Nephrovite) 1 tab DAILY ORAL 08/04/18 09:00 09/03/18 08:59 Srini Sam M.D. Aug 03, 2018 14:14
--- NOTE | 2018-08-03 15:42 | Consultation ---
History of Present Illness General Date patient seen: Aug 03, 2018 Time patient seen: 15:38 Chief Complaint: Altered Level of Consciousness Reason for Consultation: Atrial fibrillation Present Illness HPI C[employer] FOR TOLUIE 88 year old male with AMS, cardiology consulted for AFIB RVR. The patient has a long history of Parkinson's dementia and chronic atrial fibrillation with renal mass and obesity with gait instability. He also has history of CVA. He has been on tube feeding due to dysphagia and history of aspiration pneumonia previously. The patient is currently intubated and in ICU for treatment of aspiration pneumonia with intravenous antibiotic, meropenem and vancomycin Allergies: Coded Allergies: MORPHINE (Verified Allergy, Unknown, 03/25/18) PENICILLINS (Verified Allergy, Unknown, 03/05/18) Medication History Scheduled Atorvastatin Calcium* (Lipitor*), 20 MG ORAL BEDTIME Aztreonam (Azactam), 1 EA TOP Q8HR Carbidopa/Levodopa 25-100 Mg* (Sinemet 25-100 Mg Tablet*), 1 TAB ORAL THREE TIMES A DAY, (Reported) Carbidopa/Levodopa 25-100 Mg* (Sinemet 25-100 Mg Tablet*), 1 TAB ORAL THREE TIMES A DAY, (Reported) Diltiazem Hcl* (Cardizem*), 60 MG NG EVERY 6 HOURS Doxycycline Hyclate (Doxy 100), 100 MG IV BID Gabapentin* (Gabapentin*), 100 MG ORAL QHS Pantoprazole* (Protonix*), 40 MG PO DAILY Tamsulosin HCl (Flomax), 0.4 MG ORAL BEDTIME Venlafaxine HCl (Effexor Xr), 37.5 MG ORAL DAILY Venlafaxine Hcl* (Effexor Xr*), 37.5 MG ORAL DAILY, (Reported) Vitamin B Cmplx/Vit C/Folic AC (Nephro-Louisa Tablet), 1 TAB ORAL DAILY, (Reported ) [Digoxin], 0.125 MG ORAL DAILY Scheduled PRN Acetaminophen* (Acetaminophen 325MG Tablet*), 650 MG ORAL Q6H PRN Ondansetron* (Zofran*), 4 MG PO Q4H PRN Tramadol Hcl* (Ultram*), 50 MG ORAL Q8H PRN Miscellaneous Medications Multivits,Ca,Minerals/Iron/FA (Thera M Plus Tablet), 1 EACH PO, (Reported) Patient History Healthcare decision maker MARIE KAPETAN Resuscitation status Full Code Advanced Directive on File No Review of Systems Eye: Reports: no symptoms ENT: Reports: no symptoms Respiratory: Reports: shortness of breath Cardiovascular: Reports: palpitations Gastrointestinal: Reports: no symptoms Genitourinary: Reports: no symptoms Musculoskeletal: Reports: no symptoms Skin: Reports: no symptoms Psychiatric: Reports: no symptoms Neurological: Reports: no symptoms Endocrine: Reports: no symptoms Hematologic/Lymphatic: Reports: no symptoms Physical Exam General Appearance: no apparent distress Lines, tubes and drains: peripheral, endotracheal tube HEENT: normocephalic, atraumatic Neck: non-tender, normal alignment, supple Respiratory/Chest: chest wall non-tender, crackles/rales, rhonchi - bilaterally Cardiovascular/Chest: normal peripheral pulses, regularly irregular, arrhythmia Abdomen: normal bowel sounds, non tender, no organomegaly Extremities: normal range of motion, non-tender Skin Exam: normal pigmentation, warm/dry 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 Last 24 Hour Vital Signs Date Time Temp Pulse Resp B/P (MAP) Pulse Ox O2 Delivery O2 Flow Rate FiO2 08/03/18 15:04 78 18 40 08/03/18 15:00 83 18 113/72 (86) 100 08/03/18 14:00 85 17 115/66 (82) 100 08/03/18 13:00 92 16 136/80 (98) 100 08/03/18 12:57 86 22 99 Mechanical Ventilator 40 08/03/18 12:54 87 19 40 08/03/18 12:50 84 18 99 Mechanical Ventilator 40 08/03/18 12:50 40 08/03/18 12:00 Mechanical Ventilator Mechanical Ventilator 08/03/18 12:00 40 08/03/18 12:00 98.1 80 16 157/85 (109) 100 08/03/18 11:35 91 08/03/18 11:00 99 20 155/98 (117) 99 08/03/18 11:00 94 19 136/85 (102) 100 08/03/18 10:39 90 18 40 08/03/18 10:00 94 19 136/85 (102) 100 08/03/18 09:23 98 143/85 08/03/18 09:14 96 18 40 08/03/18 09:00 93 18 143/85 (104) 99 08/03/18 08:00 40 08/03/18 08:00 98.2 100 21 149/78 (101) 91 08/03/18 08:00 Mechanical Ventilator Mechanical Ventilator 08/03/18 07:25 99 08/03/18 07:02 104 16 100 Mechanical Ventilator 40 08/03/18 07:00 97 16 160/94 (116) 100 08/03/18 06:56 85 18 40 50 08/03/18 06:55 95 16 100 Mechanical Ventilator 40 08/03/18 06:55 40 08/03/18 06:00 89 17 130/85 (100) 97 08/03/18 05:29 102 20 40 50 08/03/18 05:00 99 21 158/98 (118) 100 08/03/18 04:00 98.7 91 19 125/75 (92) 99 08/03/18 04:00 96 08/03/18 04:00 Mechanical Ventilator 08/03/18 04:00 40 08/03/18 03:29 98 19 40 50 08/03/18 03:00 101 19 119/71 (87) 97 08/03/18 02:00 93 16 149/97 (114) 98 08/03/18 01:28 99 16 100 Mechanical Ventilator 40 08/03/18 01:18 91 17 98 Mechanical Ventilator 40 08/03/18 01:17 91 17 40 50 08/03/18 01:00 91 17 124/87 (99) 98 08/03/18 00:00 40 08/03/18 00:00 91 08/03/18 00:00 Mechanical Ventilator 08/03/18 00:00 99.0 91 17 113/78 (90) 98 08/02/18 23:08 87 18 40 50 08/02/18 23:00 89 17 111/76 (88) 98 08/02/18 22:00 92 19 127/82 (97) 97 08/02/18 21:13 88 18 45 50 08/02/18 21:00 89 18 125/77 (93) 97 08/02/18 20:00 45 08/02/18 20:00 93 08/02/18 20:00 98.1 88 18 128/81 (97) 96 08/02/18 20:00 Mechanical Ventilator 08/02/18 19:37 86 16 100 Mechanical Ventilator 45 08/02/18 19:27 90 17 97 Mechanical Ventilator 45 08/02/18 19:27 84 17 45 50 08/02/18 19:00 94 18 125/90 (102) 98 08/02/18 18:00 76 21 121/82 (95) 98 08/02/18 17:00 87 17 111/76 (88) 97 08/02/18 16:57 93 20 50 08/02/18 16:00 Mechanical Ventilator 08/02/18 16:00 98.3 87 20 114/77 (89) 98 08/02/18 16:00 83 08/02/18 16:00 50 Intake and Output 08/02/18 08/03/18 19:00 07:00 Intake Total 1150.176 ml 1674.943 ml Output Total 705 ml 615 ml Balance 445.176 ml 1059.943 ml Intake Oral 0 ml Free Water 60 ml IV Total 1090.176 ml 1674.943 ml Output Urine Total 705 ml 615 ml # Voids 1 # Bowel Movements 4 2 Laboratory Tests Test 08/02/18 18:25 08/02/18 20:25 08/03/18 03:35 08/03/18 06:00 Activated Partial Thromboplast Time 80 SEC (23-33) H 61 SEC (23-33) H 42 SEC (23-33) H Lactic Acid Level 1.60 mmol/L (0.4-2.0) White Blood Count 11.3 K/UL (4.8-10.8) H Red Blood Count 4.07 M/UL (4.70-6.10) L Hemoglobin 11.4 G/DL (14.2-18.0) L Hematocrit 35.8 % (42.0-52.0) L Mean Corpuscular Volume 88 FL (80-99) Mean Corpuscular Hemoglobin 28.1 PG (27.0-31.0) Mean Corpuscular Hemoglobin Concent 31.9 G/DL (32.0-36.0) L Red Cell Distribution Width 14.6 % (11.6-14.8) Platelet Count 175 K/UL (150-450) Mean Platelet Volume 6.9 FL (6.5-10.1) Neutrophils (%) (Auto) 77.8 % (45.0-75.0) H Lymphocytes (%) (Auto) 11.6 % (20.0-45.0) L Monocytes (%) (Auto) 8.6 % (1.0-10.0) Eosinophils (%) (Auto) 1.2 % (0.0-3.0) Basophils (%) (Auto) 0.8 % (0.0-2.0) Sodium Level 142 MMOL/L (136-145) Potassium Level 4.1 MMOL/L (3.5-5.1) Chloride Level 108 MMOL/L (98-107) H Carbon Dioxide Level 25 MMOL/L (21-32) Anion Gap 9 mmol/L (5-15) Blood Urea Nitrogen 45 mg/dL (7-18) H Creatinine 1.7 MG/DL (0.55-1.30) H Estimat Glomerular Filtration Rate mL/min (>60) Glucose Level 118 MG/DL (74-106) H Calcium Level 8.9 MG/DL (8.5-10.1) Total Bilirubin 0.3 MG/DL (0.2-1.0) Aspartate Amino Transf (AST/SGOT) 38 U/L (15-37) H Alanine Aminotransferase (ALT/SGPT) 26 U/L (12-78) Alkaline Phosphatase 77 U/L (46-116) Total Protein 6.5 G/DL (6.4-8.2) Albumin 2.0 G/DL (3.4-5.0) L Globulin 4.5 g/dL Albumin/Globulin Ratio 0.4 (1.0-2.7) L Random Vancomycin Level 5.6 ug/mL Test 08/03/18 11:00 Activated Partial Thromboplast Time 99 SEC (23-33) H Phosphorus Level 3.3 MG/DL (2.5-4.9) Magnesium Level 1.9 MG/DL (1.8-2.4) Height (Feet): 5 Height (Inches): 6.00 Weight (Pounds): 215 Medications Current Medications Medications (Trade) Dose Ordered Sig/Colin Route PRN Reason Start Time Stop Time Status Last Admin Dose Admin Acetaminophen (Tylenol) 650 mg Q6H PRN ORAL Mild Pain/Temp > 100.5 08/02/18 13:00 09/01/18 12:59 Albuterol/ Ipratropium (Albuterol/ Ipratropium) 3 ml Q4H PRN HHN Shortness of Breath 08/02/18 13:00 08/07/18 12:59 Albuterol/ Ipratropium (Albuterol/ Ipratropium) 3 ml Q6HRT HHN 08/02/18 13:00 08/07/18 12:59 08/03/18 12:59 Atorvastatin Calcium (Lipitor) 20 mg BEDTIME ORAL 08/03/18 21:00 09/02/18 20:59 Carbidopa/Levodopa (Sinemet 25/100) 1 tab THREE TIMES A DAY ORAL 08/03/18 18:00 09/02/18 17:59 Diltiazem HCl (Cardizem CD) 240 mg DAILY ORAL 08/03/18 10:00 09/02/18 09:59 08/03/18 09:23 Gabapentin (Neurontin) 100 mg QHS ORAL 08/03/18 21:00 09/02/18 20:59 Lorazepam (Ativan 2mg/ml 1ml) 1 mg Q4H PRN IV For Anxiety 08/02/18 13:46 08/09/18 13:45 Meropenem 1 gm/ Sodium Chloride 110 ml @ 220 mls/hr Q12HR@0200,1400 IVPB 08/03/18 14:00 08/08/18 13:59 08/03/18 13:48 Ondansetron HCl (Zofran) 4 mg Q6H PRN IVP Nausea & Vomiting 08/02/18 13:00 09/01/18 12:59 Pantoprazole (Protonix) 40 mg DAILY IVP 08/03/18 09:00 09/02/18 08:59 08/03/18 09:20 Sodium Chloride 1,000 ml @ 125 mls/hr Q8H IV 08/02/18 13:00 09/01/18 12:59 08/03/18 13:48 Tamsulosin HCl (Flomax) 0.4 mg BEDTIME ORAL 08/03/18 21:00 09/02/18 20:59 Vancomycin HCl (Vanco rx to dose) 1 ea DAILY PRN MISC Per rx protocol 08/02/18 10:45 09/01/18 10:44 Vancomycin HCl 1 gm/Dextrose 275 ml @ 183.708 mls/hr Q48H IVPB 08/03/18 08:30 08/08/18 08:29 08/03/18 09:20 Venlafaxine HCl (Effexor-XR) 37.5 mg DAILY ORAL 08/04/18 09:00 09/03/18 08:59 Vitamin B Complex/ Vit C/Folic Acid (Nephrovite) 1 tab DAILY ORAL 08/04/18 09:00 09/03/18 08:59 Assessment/Plan Status: stable Assessment/Plan Assessment: Altered Mental Status parkinson STUART CKD AFIB RVR HLD CVA GI bleed Plan: Restart Cardizem 240 mg CD Heparin Gtt No plans for cardioversion TTE when stable Continue abx for aspiration PNA Pulmonary toilet Critical care 35 minutes Richie Trotter MD Aug 03, 2018 15:42
--- NOTE | 2018-08-03 16:00 | NUR ---
NURSE NOTES: Pt is more awake, making eye contacts. Does not follow commands. Able to mumble but not able to verbalize needs. Will continue to monitor.
[2018-08-03] MEDS ORDERED: Etomidate 40mg/20ml Inj IV ONE (16:20)
--- NOTE | 2018-08-03 16:30 | Consultation ---
DATE OF CONSULTATION: 08/02/2018 INFECTIOUS DISEASE CONSULTATION CONSULTING PHYSICIAN: Srini Sam M.D. REQUESTING PHYSICIAN: Shelby Arrington M.D. REASON FOR CONSULTATION: Aspiration pneumonia, left arm cellulitis, and sepsis. Recommendation for antimicrobial treatment. HISTORY OF PRESENT ILLNESS: The patient is an 88-year-old male, well known to me from previous admission with past medical history of Parkinson disease, chronic kidney failure, left femur trochanteric fracture, status post open reduction and internal fixation, chronic atrial fibrillation, hyperlipidemia, CVA, renal mass, and GI bleeding, was brought in to [facility] emergency room via paramedics from his long term for altered mental status and fever from [facility]. The patient was found to be febrile upon arrival to the emergency room with white count of 19,000 concerning for sepsis. Chest x-ray showed infiltration mainly on the left concerning for pneumonia. The patient was intubated on the scene and started on mechanical ventilation and Infectious Disease consultation was requested for antibiotics treatment and further management. As of note, the patient had left arm swelling with redness extend to his hand with multiple blisters filled with fluid on his left hand palm. The patient is a poor historian. He is already intubated on mechanical ventilation, could not provide any history. History was mainly obtained from the medical records and nursing staff. REVIEW OF SYSTEMS: Unable to obtain. The patient is intubated on mechanical ventilation and cannot provide any history. PAST MEDICAL HISTORY: Significant for Parkinson disease, dementia, chronic renal failure, trochanteric fracture of the left femur, chronic atrial fibrillation, hyperlipidemia, gait instability, depression, neuropathy, CVA, renal mass, and history of GI bleed. PAST SURGICAL HISTORY: Include left femur surgery, status post open reduction and internal fixation. FAMILY HISTORY: Unable to obtain. SOCIAL HISTORY: The patient lives at [facility]. No recent drugs, tobacco, or alcohol. He is on disability and unemployed. ALLERGIES: He is allergic to morphine and penicillin as per the record. MEDICATIONS: The patient received levofloxacin, vancomycin in the emergency room, and cefepime. For the rest of his medications, please refer to MAR. LABORATORY AND DIAGNOSTIC DATA: Labs showed white count of 19.1, hemoglobin of 14.3, platelet count of 257. BUN of 20, creatinine of 1.8. Lactic acid of 1.6. AST of 38, AST of 27, and alkaline phosphatase of 78. Urinalysis showed 0 to 2 wbc, occasional squamous epithelial cells and occasional urine bacteria with 0 to 2 fine granular casts. Microbiology, influenza screening A and B both negative. Blood culture pending. Imaging, chest x-ray showed left basilar atelectasis likely chronic central bronchial wall thickening, possible small right pleural effusion. PHYSICAL EXAMINATION: VITAL SIGNS: Temperature 99.3, pulse 94, respirations 22, blood pressure 122/75, and pulse ox 96% on mechanical ventilation with FiO2 of 50%. GENERAL: Elderly male, obese, lying in bed, intubated on mechanical ventilation. Comfortable, unresponsive, not in acute distress HEENT: Normocephalic and atraumatic. Pupils are reactive to lights minimally. Unable to evaluate oral mucosa due to ET tube. No lips ulceration. NECK: Supple. No lymphadenopathy. No JVD. CARDIOVASCULAR: Regular rate and rhythm. No murmur or gallop. LUNGS: He had diminished breathing sounds at the bases with crackles. No wheezing or rhonchi. Normal breathing effort. ABDOMEN: Soft, obese, nontender, distended. Hypoactive bowel sounds. G-tube site looks intact. EXTREMITIES: No edema or cyanosis except left upper extremity with edema, redness extend to the hand with multiple fluid-filled blisters on the palm of his left hand. SKIN: He has sacral pressure wound stage II with skin redness and bilateral heel deep tissue injury. ASSESSMENT AND RECOMMENDATION: 1. Left lower lobe pneumonia, suspect aspiration. We will send sputum culture and start meropenem with vancomycin empiric coverage, pending culture, aspiration precaution, and keep head of bed more than 30-degree all the time. 2. Left arm cellulitis, complicated with blisters already on wide-spectrum antibiotics with vancomycin and meropenem. Pending his blood culture. Keep arm elevated while in bed. Consider venous Doppler. 3. Sepsis with leukocytosis due to the above. We will start vancomycin and meropenem empiric coverage and send blood culture. 4. Chronic kidney disease. Continue hydration and renally dosed medicine as per pharmacy. 5. Renal mass on the right. Poor candidate for surgery. 6. Encephalopathy suspect metabolic, due to the above. Continue hydration with antibiotics, avoid sedative. 7. Acute respiratory failure, due to the above. Intubated on mechanical ventilation. Monitor ABG and chest x-ray. Pulmonary is following. Thank you for the consult. ID will continue to follow. Please feel free to call with any question. Srini Sam M.D. DR: OLY JOB#: [id number] CC: CINDY
--- NOTE | 2018-08-03 17:34 | General Progress Note ---
Assessment/Plan Status: stable Assessment/Plan 1. Acute Respiratory failure - intubated and still in ICU. Pulm following. 2. Asp Pneumonia and possible sepsis - Cont IV ABX meripenem and Vanco per ID. follow cultures. 3. Chronic A fib - rate controlled - hearing therapy teacher is following. 4. Parkinson dementia - cont home meds. 5. Chronic Lt leg Popliteal thrombosis - off anticoagulation due to high risk of bleeding and previous hx of GI bleeding. 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 6. Chronic kidney disease - stable. 7. Hx of renal mass - family refused the work up last admission. currently DNR. 8. Hx of CVA with one sided hemiplegia 9. Depression - cont home meds. 10. Neuropathy - stable. 11. Hyperlipidemia - cont home med. Subjective Date patient seen: Aug 03, 2018 Time patient seen: 17:00 Constitutional: Reports: weakness HEENT: Reports: no symptoms Cardiovascular: Reports: irregular heart rate Respiratory: Reports: no symptoms Gastrointestinal/Abdominal: Reports: no symptoms Genitourinary: Reports: no symptoms Neurologic/Psychiatric: Reports: no symptoms Endocrine: Reports: no symptoms Hematologic/Lymphatic: Reports: no symptoms Allergies: Coded Allergies: MORPHINE (Verified Allergy, Unknown, 03/25/18) PENICILLINS (Verified Allergy, Unknown, 03/05/18) Subjective Today, he is doing better. His WBC improving. Intubated and in ICU. Objective Last 24 Hour Vital Signs Date Time Temp Pulse Resp B/P (MAP) Pulse Ox O2 Delivery O2 Flow Rate FiO2 08/03/18 17:00 87 18 113/88 (96) 100 08/03/18 16:00 Mechanical Ventilator Mechanical Ventilator 08/03/18 16:00 40 08/03/18 16:00 98.2 83 17 125/69 (87) 100 08/03/18 15:04 78 18 40 08/03/18 15:00 83 18 113/72 (86) 100 08/03/18 14:00 85 17 115/66 (82) 100 08/03/18 13:00 92 16 136/80 (98) 100 08/03/18 12:57 86 22 99 Mechanical Ventilator 40 08/03/18 12:54 87 19 40 08/03/18 12:50 84 18 99 Mechanical Ventilator 40 08/03/18 12:50 40 08/03/18 12:00 Mechanical Ventilator Mechanical Ventilator 4/13/19 12:00 40 08/03/18 12:00 98.1 80 16 157/85 (109) 100 08/03/18 11:35 91 08/03/18 11:00 99 20 155/98 (117) 99 08/03/18 11:00 94 19 136/85 (102) 100 08/03/18 10:39 90 18 40 08/03/18 10:00 94 19 136/85 (102) 100 08/03/18 09:23 98 143/85 08/03/18 09:14 96 18 40 08/03/18 09:00 93 18 143/85 (104) 99 08/03/18 08:00 40 08/03/18 08:00 98.2 100 21 149/78 (101) 91 08/03/18 08:00 Mechanical Ventilator Mechanical Ventilator 08/03/18 07:25 99 08/03/18 07:02 104 16 100 Mechanical Ventilator 40 08/03/18 07:00 97 16 160/94 (116) 100 08/03/18 06:56 85 18 40 50 08/03/18 06:55 95 16 100 Mechanical Ventilator 40 08/03/18 06:55 40 08/03/18 06:00 89 17 130/85 (100) 97 08/03/18 05:29 102 20 40 50 08/03/18 05:00 99 21 158/98 (118) 100 08/03/18 04:00 98.7 91 19 125/75 (92) 99 08/03/18 04:00 96 08/03/18 04:00 Mechanical Ventilator 08/03/18 04:00 40 08/03/18 03:29 98 19 40 50 08/03/18 03:00 101 19 119/71 (87) 97 08/03/18 02:00 93 16 149/97 (114) 98 08/03/18 01:28 99 16 100 Mechanical Ventilator 40 08/03/18 01:18 91 17 98 Mechanical Ventilator 40 08/03/18 01:17 91 17 40 50 08/03/18 01:00 91 17 124/87 (99) 98 08/03/18 00:00 40 08/03/18 00:00 91 08/03/18 00:00 Mechanical Ventilator 08/03/18 00:00 99.0 91 17 113/78 (90) 98 08/02/18 23:08 87 18 40 50 08/02/18 23:00 89 17 111/76 (88) 98 08/02/18 22:00 92 19 127/82 (97) 97 08/02/18 21:13 88 18 45 50 08/02/18 21:00 89 18 125/77 (93) 97 08/02/18 20:00 45 08/02/18 20:00 93 08/02/18 20:00 98.1 88 18 128/81 (97) 96 08/02/18 20:00 Mechanical Ventilator 08/02/18 19:37 86 16 100 Mechanical Ventilator 45 08/02/18 19:27 90 17 97 Mechanical Ventilator 45 08/02/18 19:27 84 17 45 50 08/02/18 19:00 94 18 125/90 (102) 98 08/02/18 18:00 76 21 121/82 (95) 98 Intake and Output 08/02/18 08/03/18 19:00 07:00 Intake Total 1150.176 ml 1674.943 ml Output Total 705 ml 615 ml Balance 445.176 ml 1059.943 ml Intake Oral 0 ml Free Water 60 ml IV Total 1090.176 ml 1674.943 ml Output Urine Total 705 ml 615 ml # Voids 1 # Bowel Movements 4 2 Laboratory Tests 08/02/18 18:25: Activated Partial Thromboplast Time 80H, Lactic Acid Level 1.60 08/02/18 20:25: Activated Partial Thromboplast Time 61H 08/03/18 03:35: Activated Partial Thromboplast Time 42H 08/03/18 06:00: White Blood Count 11.3H, Red Blood Count 4.07L, Hemoglobin 11.4L, Hematocrit 35.8L, Mean Corpuscular Volume 88, Mean Corpuscular Hemoglobin 28.1, Mean Corpuscular Hemoglobin Concent 31.9L, Red Cell Distribution Width 14.6, Platelet Count 175, Mean Platelet Volume 6.9, Neutrophils (%) (Auto) 77.8H, Lymphocytes (%) (Auto) 11.6L, Monocytes (%) (Auto) 8.6, Eosinophils (%) (Auto) 1.2, Basophils (%) (Auto) 0.8, Sodium Level 142, Potassium Level 4.1, Chloride Level 108H, Carbon Dioxide Level 25, Anion Gap 9, Blood Urea Nitrogen 45H, Creatinine 1.7H, Estimat Glomerular Filtration Rate , Glucose Level 118H, Calcium Level 8.9, Total Bilirubin 0.3, Aspartate Amino Transf (AST/SGOT) 38H, Alanine Aminotransferase (ALT/SGPT) 26, Alkaline Phosphatase 77, Total Protein 6.5, Albumin 2.0L, Globulin 4.5, Albumin/Globulin Ratio 0.4L, Random Vancomycin Level 5.6 08/03/18 11:00: Activated Partial Thromboplast Time 99H, Phosphorus Level 3.3, Magnesium Level 1.9 Height (Feet): 5 Height (Inches): 6.00 Weight (Pounds): 215 General Appearance: no apparent distress, lethargic EENT: normal ENT inspection Neck: non-tender, supple Cardiovascular: regularly irregular Respiratory/Chest: other - intubated Abdomen: normal bowel sounds, non tender, soft Extremities: non-tender Edema: no edema noted Arm (L), no edema noted Arm (R), no edema noted Leg (L), no edema noted Leg (R), no edema noted Pedal (L), no edema noted Pedal (R), no edema noted Generalized Neurologic: responsive Skin: warm/dry Lymphatic: normal anterior cervical (L), normal anterior cervical (R), normal posterior cervical (L), normal posterior cervical (R), normal submandibular (L) , normal submandibular (R), normal supraclavicular (L), normal supraclavicular ( R), normal axillary (L), normal axillary (R), normal inguinal (L), normal inguinal (R), normal other Shelby Arrington MD Aug 03, 2018 17:34
--- NOTE | 2018-08-03 17:41 | Pulmonolgy Critical Care Note ---
Critical Care - Asmt/Plan Assessment/Plan: Pulmonary CCM Progress Note Critical Care - Asmt/Plan Problems: (1) Respiratory failure, acute (2) Airway intubation performed without difficulty (3) LLL pneumonia (4) STUART (acute kidney injury) (5) CKD (chronic kidney disease) (6) Dementia (7) Leukocytosis (8) FTT (failure to thrive) in adult (9) Afib Respiratory: monitor respiratory rate, ABG, weaning trial - in am, other - Continue current vent settings, HHN's Cardiac: continue to monitor HR/BP, other - TTE, start IVUH, rate control, EPS/ cards eval Renal: keep IV fluid - NS @ 125, check electrolytes Infectious Disease: check cultures, continue antibiotics - Vanco and Valentino perID Gastrointestinal: start feedings Endocrine: monitor blood sugar Hematologic: monitor H/H Neurologic: keep patient comfortable - ICU sedation Prophylaxis: Protonix, Heparin Disposition: keep in ICU Time Spent (Minutes): 45 Notes Reviewed: ID Discussed with: nurses, consultants Critical Care - Objective Vital Signs Noted Status: sedated Condition: critical HEENT: atraumatic, normocephalic Lungs: rhonchi Heart: HR/BP stable, irregular Abdomen: soft, non-tender, active bowel sounds, feeding tube Extremities: no C/C/E Micro: Microbiology Date/Time Source Procedure Growth Status 08/02/18 06:10 Nasal Nares Influenza Types A,B Antigen (CHANTELLE) - Final Complete Critical Care - Subjective ROS Limited/Unobtainable: Yes ICU Day: 2 Intubation Day: 2 Interval Events: 88 M h/o PD, GT, CVA BIB EMS from ID with AMS, intubated in ER, STUART, PNA, now transferred to ICU, hemodynamically stable. Patient is sedated and comfortable on vent. He has been seen by ID and started on Vanco and Valentino Condition: critical IV Access: peripheral EKG Rhythm: Atrial Fibrillation FI02: 50 Vent Support Breath Rate: 16 Vent Support Mode: AC Vent Tidal Volume: 500 Sputum Amount: Moderate PEEP: 5.0 PIP: 22 Fluids: NS@200 Subjective: SABRINA CXR: ETT L perihilar inf ET-Tube: 7.5 ET Position: 25 Labs: Laboratory Tests Test 08/02/18 06:10 08/02/18 06:22 08/02/18 08:15 08/02/18 08:25 White Blood Count 19.1 K/UL (4.8-10.8) H Red Blood Count 5.06 M/UL (4.70-6.10) Hemoglobin 14.3 G/DL (14.2-18.0) Hematocrit 44.3 % (42.0-52.0) Mean Corpuscular Volume 88 FL (80-99) Mean Corpuscular Hemoglobin 28.2 PG (27.0-31.0) Mean Corpuscular Hemoglobin Concent 32.2 G/DL (32.0-36.0) Red Cell Distribution Width 14.7 % (11.6-14.8) Platelet Count 257 K/UL (150-450) Mean Platelet Volume 6.7 FL (6.5-10.1) Neutrophils (%) (Auto) % (45.0-75.0) Lymphocytes (%) (Auto) % (20.0-45.0) Monocytes (%) (Auto) % (1.0-10.0) Eosinophils (%) (Auto) % (0.0-3.0) Basophils (%) (Auto) % (0.0-2.0) Differential Total Cells Counted 100 Neutrophils % (Manual) 85 % (45-75) H Lymphocytes % (Manual) 7 % (20-45) L Monocytes % (Manual) 7 % (1-10) Eosinophils % (Manual) 0 % (0-3) Basophils % (Manual) 1 % (0-2) Band Neutrophils 0 % (0-8) Platelet Estimate Adequate Platelet Morphology Normal Red Blood Cell Morphology Normal Urine Color Yellow Urine Appearance Clear Urine pH 6 (4.5-8.0) Urine Specific [place] 1.020 (1.005-1.035) Urine Protein 4+ (NEGATIVE) H Urine Glucose (UA) Negative (NEGATIVE) Urine Ketones Negative (NEGATIVE) Urine Blood 1+ (NEGATIVE) H Urine Nitrite Negative (NEGATIVE) Urine Bilirubin Negative (NEGATIVE) Urine Urobilinogen Normal MG/DL (0.0-1.0) Urine Leukocyte Esterase Negative (NEGATIVE) Urine RBC 2-4 /HPF (0 - 0) H Urine WBC 0-2 /HPF (0 - 0) Urine Squamous Epithelial Cells Occasional /LPF Urine Bacteria Occasional /HPF (NONE) Urine Hyaline Casts 0-2 /LPF (NONE) H Urine Fine Granular Casts 0-2 /LPF (NONE) H Sodium Level 136 MMOL/L (136-145) Potassium Level 4.7 MMOL/L (3.5-5.1) Chloride Level 100 MMOL/L (98-107) Carbon Dioxide Level 25 MMOL/L (21-32) Anion Gap 11 mmol/L (5-15) Blood Urea Nitrogen 57 mg/dL (7-18) H Creatinine 2.1 MG/DL (0.55-1.30) H Estimat Glomerular Filtration Rate mL/min (>60) Glucose Level 222 MG/DL (74-106) H Lactic Acid Level 2.70 mmol/L (0.4-2.0) H 3.10 mmol/L (0.66-2.22) H Calcium Level 9.8 MG/DL (8.5-10.1) Total Bilirubin 0.4 MG/DL (0.2-1.0) Aspartate Amino Transf (AST/SGOT) 28 U/L (15-37) Alanine Aminotransferase (ALT/SGPT) 23 U/L (12-78) Alkaline Phosphatase 95 U/L (46-116) Total Creatine Kinase 461 U/L (26-308) H Creatine Kinase MB 1.6 NG/ML (0.0-3.6) Creatine Kinase MB Relative Index 0.3 Troponin I 0.036 ng/mL (0.000-0.056) Pro-B-Type Natriuretic Peptide 4699 pg/mL (0-125) H Total Protein 7.9 G/DL (6.4-8.2) Albumin 2.6 G/DL (3.4-5.0) L Globulin 5.3 g/dL Albumin/Globulin Ratio 0.5 (1.0-2.7) L Lipase 225 U/L (73-393) Arterial Blood pH 7.433 (7.350-7.450) 7.364 (7.350-7.450) Arterial Blood Partial Pressure CO2 39.5 mmHg (35.0-45.0) 40.6 mmHg (35.0-45.0) Arterial Blood Partial Pressure O2 140.8 mmHg (75.0-100.0) H 88.0 mmHg (75.0-100.0) Arterial Blood HCO3 25.8 mmol/L (22.0-26.0) 22.6 mmol/L (22.0-26.0) Arterial Blood Oxygen Saturation 98.6 % (95-100) 95.7 % (95-100) Arterial Blood Base Excess 1.5 (-2-2) -2.5 (-2-2) L Edil Test Positive Positive Critical Care - Objective Last 24 Hour Vital Signs Date Time Temp Pulse Resp B/P (MAP) Pulse Ox O2 Delivery O2 Flow Rate FiO2 08/03/18 17:00 87 18 113/88 (96) 100 08/03/18 16:00 Mechanical Ventilator Mechanical Ventilator 08/03/18 16:00 40 08/03/18 16:00 98.2 83 17 125/69 (87) 100 08/03/18 15:04 78 18 40 08/03/18 15:00 83 18 113/72 (86) 100 08/03/18 14:00 85 17 115/66 (82) 100 08/03/18 13:00 92 16 136/80 (98) 100 08/03/18 12:57 86 22 99 Mechanical Ventilator 40 08/03/18 12:54 87 19 40 08/03/18 12:50 84 18 99 Mechanical Ventilator 40 08/03/18 12:50 40 08/03/18 12:00 Mechanical Ventilator Mechanical Ventilator 08/03/18 12:00 40 08/03/18 12:00 98.1 80 16 157/85 (109) 100 08/03/18 11:35 91 08/03/18 11:00 99 20 155/98 (117) 99 08/03/18 11:00 94 19 136/85 (102) 100 08/03/18 10:39 90 18 40 08/03/18 10:00 94 19 136/85 (102) 100 08/03/18 09:23 98 143/85 08/03/18 09:14 96 18 40 08/03/18 09:00 93 18 143/85 (104) 99 08/03/18 08:00 40 08/03/18 08:00 98.2 100 21 149/78 (101) 91 08/03/18 08:00 Mechanical Ventilator Mechanical Ventilator 08/03/18 07:25 99 08/03/18 07:02 104 16 100 Mechanical Ventilator 40 08/03/18 07:00 97 16 160/94 (116) 100 08/03/18 06:56 85 18 40 50 08/03/18 06:55 95 16 100 Mechanical Ventilator 40 08/03/18 06:55 40 08/03/18 06:00 89 17 130/85 (100) 97 08/03/18 05:29 102 20 40 50 08/03/18 05:00 99 21 158/98 (118) 100 08/03/18 04:00 98.7 91 19 125/75 (92) 99 08/03/18 04:00 96 08/03/18 04:00 Mechanical Ventilator 08/03/18 04:00 40 08/03/18 03:29 98 19 40 50 08/03/18 03:00 101 19 119/71 (87) 97 08/03/18 02:00 93 16 149/97 (114) 98 08/03/18 01:28 99 16 100 Mechanical Ventilator 40 08/03/18 01:18 91 17 98 Mechanical Ventilator 40 08/03/18 01:17 91 17 40 50 08/03/18 01:00 91 17 124/87 (99) 98 08/03/18 00:00 40 08/03/18 00:00 91 08/03/18 00:00 Mechanical Ventilator 08/03/18 00:00 99.0 91 17 113/78 (90) 98 08/02/18 23:08 87 18 40 50 08/02/18 23:00 89 17 111/76 (88) 98 08/02/18 22:00 92 19 127/82 (97) 97 08/02/18 21:13 88 18 45 50 08/02/18 21:00 89 18 125/77 (93) 97 08/02/18 20:00 45 08/02/18 20:00 93 08/02/18 20:00 98.1 88 18 128/81 (97) 96 08/02/18 20:00 Mechanical Ventilator 08/02/18 19:37 86 16 100 Mechanical Ventilator 45 08/02/18 19:27 90 17 97 Mechanical Ventilator 45 08/02/18 19:27 84 17 45 50 08/02/18 19:00 94 18 125/90 (102) 98 08/02/18 18:00 76 21 121/82 (95) 98 Micro: Microbiology Date/Time Source Procedure Growth Status 08/02/18 06:10 Blood Blood Culture - Preliminary Resulted 08/02/18 06:10 Blood Blood Culture - Preliminary Resulted 08/02/18 06:10 Nasal Nares Influenza Types A,B Antigen (CHANTELLE) - Final Complete Critical Care - Subjective ROS Limited/Unobtainable: No Condition: stable FI02: 40 Vent Support Breath Rate: 16 Vent Support Mode: AC Vent Tidal Volume: 500 Sputum Amount: Moderate PEEP: 5.0 PIP: 21 I&O: Intake and Output 08/02/18 08/03/18 19:00 07:00 Intake Total 1150.176 ml 1674.943 ml Output Total 705 ml 615 ml Balance 445.176 ml 1059.943 ml Intake Oral 0 ml Free Water 60 ml IV Total 1090.176 ml 1674.943 ml Output Urine Total 705 ml 615 ml # Voids 1 # Bowel Movements 4 2 ET-Tube: 7.5 ET Position: 23 Richie Grove MD Aug 03, 2018 17:41
--- NOTE | 2018-08-03 17:41 | NUR ---
NURSE NOTES: Cleaned and repositioned pt. Dr Arrington here to see the patient. Called [facility] to check POLST for code status. CV is not answering call. Will call later. Order for labs tomorrow received, noted, and carried out.
[2018-08-03] MEDS: Levodopa/Carbidopa 25/100 tab ORAL SCH (17:53)
--- NOTE | 2018-08-03 18:50 | NUR ---
NURSE NOTES: Received Advanced Directive from [facility]. Full code per pt's sister, Jerica De Jesus according to document. Placed it in the chart and will endorse to night filler.
--- NOTE | 2018-08-03 19:05 | NUR ---
HAND-OFF: Report given to SHANNON Servin.
--- NOTE | 2018-08-03 19:05 | NUR ---
RESPIRATORY NOTE: Received pt. on 840 vent. Vent settings are: A/C rate of 16, Vt 500, FI02 40%, PEEP +5. No respiratory distress noted, pt sP02 @ 100%. Ambu bag @ BS. Vent plugged on red outlet. Will continue to monitor pt.
--- NOTE | 2018-08-03 19:30 | NUR ---
NURSE NOTES: Received pt in no apparent distress; eyes closed but attempts to open to light pain and suctioning. Remains orally intubated with #7.5 ETT placed over left lip corner at 23cm. Appears to be tolerating current vent settings of AC16 [id number] peep 5 and saturating at 98-100%; secretions moderate with blood specks both orally and via ETT. Chest sounds with diminished air entry at bases and scattered rhonchi. Still Afib on the monitor, rate controlled; afebrile. PIV site on RFA intact with IVF of NS infusing at 125ml/h. Wound dressing to sacral area clean, dry and intact; FC patent; UOP 40-50ml/h clear yellow. Currently denies pain. Dr Grove at bedside, examined pt; no new orders. Will continue to monitor
[2018-08-03] MEDS ORDERED: Tubing IV Secondary IV ONE (20:28)
[2018-08-03] MEDS ORDERED: Sterile Water Irrig 1000ml IRRIG ONE (20:28)
[2018-08-03] MEDS ORDERED: NS 275ml ONE (20:28)
[2018-08-03] MEDS: Tamsulosin 0.4mg cap ORAL SCH (20:41)
[2018-08-03] MEDS: Atorvastatin 20mg tab ORAL SCH (20:42)
--- NOTE | 2018-08-03 22:00 | NUR ---
NURSE NOTES: Suctioned orally and oral care done. Secretions brownish with red specks. Calm and asleep; no tremors noted
[2018-08-04] VITALS (24 sets, daily range): BP systolic 101–155; BP diastolic 62–86
--- NOTE | 2018-08-04 | NUR ---
NURSE NOTES: Afebrile; BP stable. Remains on controlled afib. No BM. Tolerating current vent settings. Continue to monitor
[2018-08-04] MEDS: Albuterol/Ipratropium 3ml neb HHN SCH ×4 (01:07→19:13)
[2018-08-04] MEDS: Meropenem 1gm/NS 110ml IVPB SCH ×4 (02:32→14:22)
--- NOTE | 2018-08-04 04:00 | NUR ---
NURSE NOTES: No BM; complete bed bath rendered. Oral care and suctioning done as well. Wound dressing dry and intact. No distress, VSS, afebrile.
[2018-08-04 05:51] LABS: BASOPHILS % (AUTO) 0.9 % (0.0-2.0); EOSINOPHILS % (AUTO) 3.1 % (0.0-3.0); HEMATOCRIT 35.5 % (42.0-52.0); HEMOGLOBIN 11.3 G/DL (14.2-18.0); MEAN CORPUSCULAR VOLUME 88 FL (80-99); MONOCYTES % (AUTO) 8.6 % (1.0-10.0); NEUTROPHILS % (AUTO) 76.5 % (45.0-75.0); PLATELET COUNT 183 K/UL (150-450); RED BLOOD COUNT 4.04 M/UL (4.70-6.10); RED CELL DISTRIBUTION WIDTH 14.6 % (11.6-14.8)
[2018-08-04 05:57] LABS: ANION GAP 8 mmol/L (5-15); BLOOD UREA NITROGEN 33 mg/dL (7-18); CALCIUM 8.7 MG/DL (8.5-10.1); CARBON DIOXIDE 25 MMOL/L (21-32); CHLORIDE 109 MMOL/L (98-107); CREATININE 1.4 MG/DL (0.55-1.30); POTASSIUM 3.6 MMOL/L (3.5-5.1); SODIUM 142 MMOL/L (136-145)
--- NOTE | 2018-08-04 07:00 | NUR ---
RESPIRATORY NOTE: Received Patient on Vent ACVC RR 16, VT 500, FIO2 40%, PEEP +5. Patient is intubated with a 7.5 ETT with a 25cm lip line, secured with anchorfast. Diminished/ rhonchi breath sounds heard bilaterally throughout both lung morales. Patient is alert and responds to verbal commands. Vent plugged into red outlet. Will continue to monitor throughout the day.
--- NOTE | 2018-08-04 07:05 | NUR ---
HAND-OFF: Report given to SHANNON Rosario.
--- NOTE | 2018-08-04 08:00 | NUR ---
NURSE NOTES: Opens eyes to name, localizes pain. Chronic afib on monitoring tech doctor aware. intubated 7.5/23 cm lipline. AC 16 VT 500 Fio2 40% Peep of 5. Thick moderate amount of sputum suctioned with red spects noted. Patient is NPO at this time. Park draining. Stage 2 sacral, L hand blister coered with biotin P200 mattress intact. R forearm 20 L forearm 20 NS at 125 cc/hr. Patient in no distress at this time. VSS. Will continue to monitor patient. Bed alarm on, call light within reach, HOB elevated.
--- NOTE | 2018-08-04 09:04 | NUR ---
RESPIRATORY NOTE: Patient passed weaning criteria. SBT started at 0904. Patient placed on PS +8 PEEP +5 FIO2 40%. Patient tolerating well. will continue to monitor.
--- NOTE | 2018-08-04 09:14 | NUR ---
RD ASSESSMENT & RECOMMENDATIONS SEE CARE ACTIVITY FOR COMPLETE ASSESSMENT DAILY ESTIMATED NEEDS: Needs based on Critical care, wounds, obese 79kg adj 20-25 kcals/kg 5974-6163 total kcals 1.25-2 g protein/kg 99-158 g total protein Fluid per MD mL/kg NUTRITION DIAGNOSIS: * Swallowing difficulty R/T dysphagia, h/o CVA w/ hemiplegia, evidenced by s/p recent PEG placement, now intubated * Increased protein needs r/t wound healing as evidenced by pt sacral partial thickness wound. ENTERAL NUTRITION RECOMMENDATIONS: Glucerna 1.5 @50ml /hr x24 hrs to provide 1200ml, 1800 kcal, 99g prot, 911ml free H2O - As medically able start Glucerna 1.5 @20ml/hr for 6 hrs - Advance as tolerated 10ml every 4-6 hrs to goal - Flush per MD/ HOB over 30 degrees ADDITIONAL RECOMMENDATIONS: 1) Monitor BGs, need for SSI 2) Sacral wound: Add via GT-> MARTHA BID + Vit C 250mg daily 3) Recalibrate bed scale: conflicting weights EMR wt: 220#, Bed scale wt: 238# 4) Check lytes daily, replete as needed .
[2018-08-04] MEDS: Levodopa/Carbidopa 25/100 tab ORAL SCH ×3 (09:25→18:30)
[2018-08-04] MEDS: Venlafaxine XR 37.5mg cap ORAL SCH (09:25)
[2018-08-04] MEDS: Nephrovite tab (Rena-Vite) ORAL SCH (09:25)
[2018-08-04] MEDS: Pantoprazole Inj IVP SCH (09:25)
[2018-08-04] MEDS: dilTIAZem HCl CD 240mg cap ORAL SCH (09:26)
[2018-08-04] MEDS: Vancomycin 1gm/D5W 275ml IVPB SCH ×2 (09:59)
--- NOTE | 2018-08-04 10:00 | NUR ---
NURSE NOTES: Remains on CPAP PS 8 since 9:05 am. VSS. Will continue plan of care. turned and repositioned. no new orders at this time.
--- NOTE | 2018-08-04 11:34 | Cardiology Progress Note ---
Assessment/Plan Status: stable Assessment/Plan Assessment/Plan Status: stable Assessment/Plan Assessment: Altered Mental Status parkinson STUART CKD AFIB RVR HLD CVA GI bleed Plan: Continue cardizem 240 mg CD - rates controlled Heparin Gtt No plans for cardioversion TTE with aortic stenosis Continue abx for aspiration PNA Pulmonary toilet Critical care 35 minutes Subjective Cardiovascular: Reports: no symptoms Respiratory: Reports: no symptoms Gastrointestinal/Abdominal: Reports: no symptoms Genitourinary: Reports: no symptoms Subjective NO acute events, heart rate controlled, vitals stable, no distress, remains intubated Objective Last 24 Hour Vital Signs Date Time Temp Pulse Resp B/P (MAP) Pulse Ox O2 Delivery O2 Flow Rate FiO2 08/04/18 11:00 80 16 148/68 (94) 100 08/04/18 10:00 82 16 136/65 (88) 100 08/04/18 09:26 89 149/73 08/04/18 09:00 80 16 132/62 (85) 100 08/04/18 08:57 82 21 40 40 08/04/18 08:00 84 08/04/18 08:00 40 08/04/18 08:00 Mechanical Ventilator Mechanical Ventilator 08/04/18 08:00 98.4 84 16 135/82 (99) 100 08/04/18 07:04 91 16 141/86 (104) 100 08/04/18 06:53 80 16 100 Mechanical Ventilator 40 08/04/18 06:51 82 19 40 08/04/18 06:44 40 08/04/18 06:44 76 16 100 Mechanical Ventilator 40 08/04/18 06:00 80 18 134/86 (102) 100 08/04/18 05:08 81 17 40 08/04/18 05:00 82 18 143/79 (100) 100 08/04/18 04:00 98.3 86 20 121/77 (92) 99 08/04/18 04:00 88 08/04/18 04:00 40 08/04/18 04:00 Mechanical Ventilator Mechanical Ventilator 08/04/18 03:00 81 18 126/71 (89) 99 08/04/18 02:57 78 17 40 08/04/18 02:00 85 18 101/67 (78) 98 08/04/18 01:23 78 16 100 Mechanical Ventilator 40 08/04/18 01:23 40 08/04/18 01:08 70 16 40 08/04/18 01:07 71 17 99 Mechanical Ventilator 40 08/04/18 01:00 74 17 110/76 (87) 99 08/04/18 00:00 98.1 74 17 102/74 (83) 99 08/04/18 00:00 74 08/04/18 00:00 40 08/04/18 00:00 Mechanical Ventilator Mechanical Ventilator 08/03/18 23:18 83 18 40 08/03/18 23:00 78 17 110/71 (84) 99 08/03/18 22:00 81 18 120/70 (87) 100 08/03/18 21:16 76 17 40 08/03/18 21:00 86 17 109/72 (84) 99 08/03/18 20:09 87 08/03/18 20:00 40 08/03/18 20:00 97.6 87 18 112/70 (84) 98 08/03/18 20:00 Mechanical Ventilator Mechanical Ventilator 08/03/18 19:10 82 16 100 Mechanical Ventilator 40 08/03/18 19:08 40 08/03/18 19:07 79 17 40 08/03/18 19:03 79 17 100 Mechanical Ventilator 40 08/03/18 19:00 79 17 121/58 (79) 100 08/03/18 18:00 81 17 119/79 (92) 100 08/03/18 17:25 84 17 40 08/03/18 17:00 87 18 113/88 (96) 100 08/03/18 16:00 Mechanical Ventilator Mechanical Ventilator 08/03/18 16:00 40 08/03/18 16:00 98.2 83 17 125/69 (87) 100 08/03/18 15:49 79 08/03/18 15:04 78 18 40 08/03/18 15:00 83 18 113/72 (86) 100 08/03/18 14:00 85 17 115/66 (82) 100 08/03/18 13:00 92 16 136/80 (98) 100 08/03/18 12:57 86 22 99 Mechanical Ventilator 40 08/03/18 12:54 87 19 40 08/03/18 12:50 84 18 99 Mechanical Ventilator 40 08/03/18 12:50 40 08/03/18 12:00 Mechanical Ventilator Mechanical Ventilator 08/03/18 12:00 40 08/03/18 12:00 98.1 80 16 157/85 (109) 100 08/03/18 11:35 91 General Appearance: no apparent distress, on vent EENT: PERRL/EOMI, normal ENT inspection, TMs normal, pharynx normal Neck: non-tender, normal alignment, supple, normal inspection, no JVD Rhythm: Afib Cardiovascular: normal peripheral pulses, normal rate, regularly irregular, arrhythmia Respiratory/Chest: chest wall non-tender, lungs clear, rhonchi - bilaterally Abdomen: normal bowel sounds, non tender, soft Extremities: normal range of motion, non-tender, normal inspection Neurologic: role player II-XII grossly normal, no motor/sensory deficits Intake and Output 08/03/18 08/04/18 18:59 06:59 Intake Total 2157.719 ml 1515 ml Output Total 1035 ml 760 ml Balance 1122.719 ml 755 ml Intake Oral 0 ml 0 ml IV Total 2107.719 ml 1485 ml Other 50 ml 30 ml Output Urine Total 1035 ml 760 ml Laboratory Tests Test 08/04/18 05:07 White Blood Count 9.0 K/UL (4.8-10.8) Red Blood Count 4.04 M/UL (4.70-6.10) L Hemoglobin 11.3 G/DL (14.2-18.0) L Hematocrit 35.5 % (42.0-52.0) L Mean Corpuscular Volume 88 FL (80-99) Mean Corpuscular Hemoglobin 28.0 PG (27.0-31.0) Mean Corpuscular Hemoglobin Concent 31.9 G/DL (32.0-36.0) L Red Cell Distribution Width 14.6 % (11.6-14.8) Platelet Count 183 K/UL (150-450) Mean Platelet Volume 7.2 FL (6.5-10.1) Neutrophils (%) (Auto) 76.5 % (45.0-75.0) H Lymphocytes (%) (Auto) 11.0 % (20.0-45.0) L Monocytes (%) (Auto) 8.6 % (1.0-10.0) Eosinophils (%) (Auto) 3.1 % (0.0-3.0) H Basophils (%) (Auto) 0.9 % (0.0-2.0) Sodium Level 142 MMOL/L (136-145) Potassium Level 3.6 MMOL/L (3.5-5.1) Chloride Level 109 MMOL/L (98-107) H Carbon Dioxide Level 25 MMOL/L (21-32) Anion Gap 8 mmol/L (5-15) Blood Urea Nitrogen 33 mg/dL (7-18) H Creatinine 1.4 MG/DL (0.55-1.30) H Estimat Glomerular Filtration Rate mL/min (>60) Glucose Level 102 MG/DL (74-106) Calcium Level 8.7 MG/DL (8.5-10.1) Microbiology Date/Time Source Procedure Growth Status 08/02/18 06:10 Blood Blood Culture - Preliminary Staphylococcus Species Resulted 08/02/18 06:10 Blood Blood Culture - Preliminary Streptococcus Species Staphylococcus Species Resulted 08/03/18 02:30 Sputum Gram Stain - Final Resulted 08/03/18 02:30 Sputum Sputum Culture Pending Resulted 08/02/18 06:10 Nasal Nares Influenza Types A,B Antigen (CHANTELLE) - Final Complete 08/03/18 02:30 Indwelling Cath Urine Culture - Preliminary NO GROWTH AFTER 24 HOURS Resulted Richie Trotter MD Aug 04, 2018 11:34
--- NOTE | 2018-08-04 12:00 | NUR ---
NURSE NOTES: VSS. No distress noted. Patient back on AC mode after 3 successful hours of weaning. ABGs taken - results within normal limits. Will continue plan of care.
--- NOTE | 2018-08-04 12:20 | NUR ---
RESPIRATORY NOTE: Weaning stopped at 1219. Patient tolerated weaning well. ABG results excellent. Placed patient back onto previous settings. RN Marlene aware.
--- NOTE | 2018-08-04 14:00 | NUR ---
NURSE NOTES: VSS. No distress noted. Turned and repositioned. Will continue plan of care.
--- NOTE | 2018-08-04 16:00 | NUR ---
NURSE NOTES: VSS. Turned and repositioned. Will continue plan of care.
--- NOTE | 2018-08-04 18:00 | NUR ---
NURSE NOTES: No new orders at this time. No distress noted. turned and repositioned.
--- NOTE | 2018-08-04 18:42 | Pulmonolgy Critical Care Note ---
Critical Care - Asmt/Plan Assessment/Plan: Pulmonary CCM Progress Note Critical Care - Asmt/Plan Problems: (1) Respiratory failure, acute (2) Airway intubation performed without difficulty (3) LLL pneumonia (4) STUART (acute kidney injury) (5) CKD (chronic kidney disease) (6) Dementia (7) Leukocytosis (8) FTT (failure to thrive) in adult (9) Afib Respiratory: monitor respiratory rate, ABG, weaning trial - in am, other - Continue current vent settings, HHN's Cardiac: continue to monitor HR/BP, other - TTE, start IVUH, rate control, EPS/ cards eval Renal: keep IV fluid - NS @ 125, check electrolytes Infectious Disease: check cultures, continue antibiotics - Vanco and Valentino perID Gastrointestinal: start feedings Endocrine: monitor blood sugar Hematologic: monitor H/H Neurologic: keep patient comfortable - ICU sedation Prophylaxis: Protonix, Heparin Disposition: keep in ICU Time Spent (Minutes): 45 Notes Reviewed: ID Discussed with: nurses, consultants Critical Care - Objective Vital Signs Noted Status: sedated Condition: critical HEENT: atraumatic, normocephalic Lungs: rhonchi Heart: HR/BP stable, irregular Abdomen: soft, non-tender, active bowel sounds, feeding tube Extremities: no C/C/E Micro: Microbiology Date/Time Source Procedure Growth Status 08/02/18 06:10 Nasal Nares Influenza Types A,B Antigen (CHANTELLE) - Final Complete Critical Care - Subjective ROS Limited/Unobtainable: Yes ICU Day: 3 Intubation Day: 3 Interval Events: 88 M h/o PD, GT, CVA BIB EMS from [place] with AMS, intubated in ER, STUART, PNA, now transferred to ICU, hemodynamically stable. Patient is sedated and comfortable on vent. He has been seen by ID and started on Vanco and Valentino Condition: critical IV Access: peripheral EKG Rhythm: Atrial Fibrillation FI02: 50 Vent Support Breath Rate: 16 Vent Support Mode: AC Vent Tidal Volume: 500 Sputum Amount: Moderate PEEP: 5.0 PIP: 22 Fluids: NS@200 Subjective: SABRINA CXR: ETT L perihilar inf ET-Tube: 7.5 ET Position: 25 Labs: Laboratory Tests Test 08/02/18 06:10 08/02/18 06:22 08/02/18 08:15 08/02/18 08:25 White Blood Count 19.1 K/UL (4.8-10.8) H Red Blood Count 5.06 M/UL (4.70-6.10) Hemoglobin 14.3 G/DL (14.2-18.0) Hematocrit 44.3 % (42.0-52.0) Mean Corpuscular Volume 88 FL (80-99) Mean Corpuscular Hemoglobin 28.2 PG (27.0-31.0) Mean Corpuscular Hemoglobin Concent 32.2 G/DL (32.0-36.0) Red Cell Distribution Width 14.7 % (11.6-14.8) Platelet Count 257 K/UL (150-450) Mean Platelet Volume 6.7 FL (6.5-10.1) Neutrophils (%) (Auto) % (45.0-75.0) Lymphocytes (%) (Auto) % (20.0-45.0) Monocytes (%) (Auto) % (1.0-10.0) Eosinophils (%) (Auto) % (0.0-3.0) Basophils (%) (Auto) % (0.0-2.0) Differential Total Cells Counted 100 Neutrophils % (Manual) 85 % (45-75) H Lymphocytes % (Manual) 7 % (20-45) L Monocytes % (Manual) 7 % (1-10) Eosinophils % (Manual) 0 % (0-3) Basophils % (Manual) 1 % (0-2) Band Neutrophils 0 % (0-8) Platelet Estimate Adequate Platelet Morphology Normal Red Blood Cell Morphology Normal Urine Color Yellow Urine Appearance Clear Urine pH 6 (4.5-8.0) Urine Specific Mullan 1.020 (1.005-1.035) Urine Protein 4+ (NEGATIVE) H Urine Glucose (UA) Negative (NEGATIVE) Urine Ketones Negative (NEGATIVE) Urine Blood 1+ (NEGATIVE) H Urine Nitrite Negative (NEGATIVE) Urine Bilirubin Negative (NEGATIVE) Urine Urobilinogen Normal MG/DL (0.0-1.0) Urine Leukocyte Esterase Negative (NEGATIVE) Urine RBC 2-4 /HPF (0 - 0) H Urine WBC 0-2 /HPF (0 - 0) Urine Squamous Epithelial Cells Occasional /LPF Urine Bacteria Occasional /HPF (NONE) Urine Hyaline Casts 0-2 /LPF (NONE) H Urine Fine Granular Casts 0-2 /LPF (NONE) H Sodium Level 136 MMOL/L (136-145) Potassium Level 4.7 MMOL/L (3.5-5.1) Chloride Level 100 MMOL/L (98-107) Carbon Dioxide Level 25 MMOL/L (21-32) Anion Gap 11 mmol/L (5-15) Blood Urea Nitrogen 57 mg/dL (7-18) H Creatinine 2.1 MG/DL (0.55-1.30) H Estimat Glomerular Filtration Rate mL/min (>60) Glucose Level 222 MG/DL (74-106) H Lactic Acid Level 2.70 mmol/L (0.4-2.0) H 3.10 mmol/L (0.66-2.22) H Calcium Level 9.8 MG/DL (8.5-10.1) Total Bilirubin 0.4 MG/DL (0.2-1.0) Aspartate Amino Transf (AST/SGOT) 28 U/L (15-37) Alanine Aminotransferase (ALT/SGPT) 23 U/L (12-78) Alkaline Phosphatase 95 U/L (46-116) Total Creatine Kinase 461 U/L (26-308) H Creatine Kinase MB 1.6 NG/ML (0.0-3.6) Creatine Kinase MB Relative Index 0.3 Troponin I 0.036 ng/mL (0.000-0.056) Pro-B-Type Natriuretic Peptide 4699 pg/mL (0-125) H Total Protein 7.9 G/DL (6.4-8.2) Albumin 2.6 G/DL (3.4-5.0) L Globulin 5.3 g/dL Albumin/Globulin Ratio 0.5 (1.0-2.7) L Lipase 225 U/L (73-393) Arterial Blood pH 7.433 (7.350-7.450) 7.364 (7.350-7.450) Arterial Blood Partial Pressure CO2 39.5 mmHg (35.0-45.0) 40.6 mmHg (35.0-45.0) Arterial Blood Partial Pressure O2 140.8 mmHg (75.0-100.0) H 88.0 mmHg (75.0-100.0) Arterial Blood HCO3 25.8 mmol/L (22.0-26.0) 22.6 mmol/L (22.0-26.0) Arterial Blood Oxygen Saturation 98.6 % (95-100) 95.7 % (95-100) Arterial Blood Base Excess 1.5 (-2-2) -2.5 (-2-2) L Edil Test Positive Positive Critical Care - Objective Last 24 Hour Vital Signs Date Time Temp Pulse Resp B/P (MAP) Pulse Ox O2 Delivery O2 Flow Rate FiO2 08/04/18 18:00 72 16 133/72 (92) 99 08/04/18 17:09 76 18 40 08/04/18 17:00 75 16 122/70 (87) 99 08/04/18 16:00 40 08/04/18 16:00 77 08/04/18 16:00 Mechanical Ventilator Mechanical Ventilator 08/04/18 16:00 98.6 74 16 128/77 (94) 99 08/04/18 15:00 74 21 40 08/04/18 15:00 77 16 124/76 (92) 99 08/04/18 14:00 78 16 120/72 (88) 99 08/04/18 13:22 85 16 100 Mechanical Ventilator 40 08/04/18 13:20 77 20 40 08/04/18 13:16 40 08/04/18 13:16 81 16 99 Mechanical Ventilator 40 08/04/18 13:00 79 16 124/75 (91) 99 08/04/18 12:18 78 20 40 08/04/18 12:00 82 08/04/18 12:00 40 08/04/18 12:00 Mechanical Ventilator Mechanical Ventilator 08/04/18 12:00 98.7 81 16 155/70 (98) 100 08/04/18 11:24 77 18 40 08/04/18 11:00 80 16 148/68 (94) 100 08/04/18 10:00 82 16 136/65 (88) 100 08/04/18 09:26 89 149/73 08/04/18 09:00 80 16 132/62 (85) 100 08/04/18 09:00 40 08/04/18 09:00 99 08/04/18 08:57 82 21 40 40 08/04/18 08:00 84 08/04/18 08:00 40 08/04/18 08:00 Mechanical Ventilator Mechanical Ventilator 08/04/18 08:00 98.4 84 16 135/82 (99) 100 08/04/18 07:04 91 16 141/86 (104) 100 08/04/18 06:53 80 16 100 Mechanical Ventilator 40 08/04/18 06:51 82 19 40 08/04/18 06:44 40 08/04/18 06:44 76 16 100 Mechanical Ventilator 40 08/04/18 06:00 80 18 134/86 (102) 100 08/04/18 05:08 81 17 40 08/04/18 05:00 82 18 143/79 (100) 100 08/04/18 04:00 98.3 86 20 121/77 (92) 99 08/04/18 04:00 88 08/04/18 04:00 40 08/04/18 04:00 Mechanical Ventilator Mechanical Ventilator 08/04/18 03:00 81 18 126/71 (89) 99 08/04/18 02:57 78 17 40 08/04/18 02:00 85 18 101/67 (78) 98 08/04/18 01:23 78 16 100 Mechanical Ventilator 40 08/04/18 01:23 40 08/04/18 01:08 70 16 40 08/04/18 01:07 71 17 99 Mechanical Ventilator 40 08/04/18 01:00 74 17 110/76 (87) 99 08/04/18 00:00 98.1 74 17 102/74 (83) 99 08/04/18 00:00 74 08/04/18 00:00 40 08/04/18 00:00 Mechanical Ventilator Mechanical Ventilator 08/03/18 23:18 83 18 40 08/03/18 23:00 78 17 110/71 (84) 99 08/03/18 22:00 81 18 120/70 (87) 100 08/03/18 21:16 76 17 40 08/03/18 21:00 86 17 109/72 (84) 99 08/03/18 20:09 87 08/03/18 20:00 40 08/03/18 20:00 97.6 87 18 112/70 (84) 98 08/03/18 20:00 Mechanical Ventilator Mechanical Ventilator 08/03/18 19:10 82 16 100 Mechanical Ventilator 40 08/03/18 19:08 40 08/03/18 19:07 79 17 40 08/03/18 19:03 79 17 100 Mechanical Ventilator 40 08/03/18 19:00 79 17 121/58 (79) 100 Micro: Microbiology Date/Time Source Procedure Growth Status 08/02/18 06:10 Blood Blood Culture - Preliminary Staphylococcus Species Resulted 08/02/18 06:10 Blood Blood Culture - Preliminary Streptococcus Species Staphylococcus Species Resulted 08/03/18 02:30 Sputum Gram Stain - Final Resulted 08/03/18 02:30 Sputum Sputum Culture Pending Resulted 08/02/18 06:10 Nasal Nares Influenza Types A,B Antigen (CHANTELLE) - Final Complete 08/03/18 02:30 Indwelling Cath Urine Culture - Preliminary NO GROWTH AFTER 24 HOURS Resulted Critical Care - Subjective ROS Limited/Unobtainable: No Condition: stable EKG Rhythm: Sinus Rhythm FI02: 40 Vent Support Breath Rate: 16 Vent Support Mode: AC Vent Tidal Volume: 500 Sputum Amount: Small PEEP: 5.0 PIP: 23 I&O: Intake and Output 08/03/18 08/04/18 19:00 07:00 Intake Total 2125.060 ml 1390 ml Output Total 1075 ml 690 ml Balance 1050.060 ml 700 ml Intake Oral 0 ml 0 ml IV Total 2075.060 ml 1360 ml Other 50 ml 30 ml Output Urine Total 1075 ml 690 ml ET-Tube: 7.5 ET Position: 25 Richie Grove MD Aug 04, 2018 18:42
--- NOTE | 2018-08-04 19:10 | NUR ---
HAND-OFF: Report given to Mallika rn using sbar. vss. no distress noted.
--- NOTE | 2018-08-04 20:00 | NUR ---
NURSE NOTES: pt lethargic responsive to painful stemoli does not follows commands moves all extremities but weak orally intubated -vent o2 sat 99 o/o reposition and suction no distress noted
--- NOTE | 2018-08-04 20:28 | Infectious Diseases Prog Note ---
Assessment/Plan Problems: (1) LLL pneumonia Assessment & Plan: suspect aspiration, await sputum culture and continue meropenem with vancomycin empirically . aspiration precaution (2) Left arm cellulitis Assessment & Plan: complicated with blisters, already on wide spectrum antibiotics pending cultures , keep arm elevated while in bed, obtain venous doppler (3) Sepsis Assessment & Plan: due to the above, with gram positive cocci in clustures , source? left hand cellulitis VS pneumonia VS sacral pressure wound , already on vancomycin and meropenem, pending final blood cultures . will order ECHO for valve vegetations (4) CKD (chronic kidney disease) Assessment & Plan: continue hydration and renally dosed meds as per pharmacy (5) Renal mass, right Assessment & Plan: poor candidate for surgery (6) Encephalopathy Assessment & Plan: suspect metabolic due to the above, continue hydration with antibiotics , avoid sedatives (7) Acute respiratory failure Assessment & Plan: due to the above , intubated on mechanical ventilation, monitor ABG, and CXR , pulmonary is following Subjective ROS Limited/Unobtainable: Yes Allergies: Coded Allergies: MORPHINE (Verified Allergy, Unknown, 03/25/18) PENICILLINS (Verified Allergy, Unknown, 03/05/18) Subjective He was more awake and responsive , but still intubated on mechanical ventilation , afebrile. with blisters in his left hand Objective Vital Signs Last 24 Hour Vital Signs Date Time Temp Pulse Resp B/P (MAP) Pulse Ox O2 Delivery O2 Flow Rate FiO2 08/04/18 20:00 Mechanical Ventilator Mechanical Ventilator 08/04/18 20:00 76 08/04/18 20:00 40 08/04/18 20:00 98.4 80 16 116/77 (90) 99 08/04/18 19:23 79 18 100 Mechanical Ventilator 40 08/04/18 19:14 74 20 40 08/04/18 19:13 40 08/04/18 19:13 72 22 99 Mechanical Ventilator 40 08/04/18 19:00 77 16 134/75 (94) 99 08/04/18 18:00 72 16 133/72 (92) 99 08/04/18 17:09 76 18 40 08/04/18 17:00 75 16 122/70 (87) 99 08/04/18 16:00 40 08/04/18 16:00 77 4/14/19 16:00 Mechanical Ventilator Mechanical Ventilator 08/04/18 16:00 98.6 74 16 128/77 (94) 99 08/04/18 15:00 74 21 40 08/04/18 15:00 77 16 124/76 (92) 99 08/04/18 14:00 78 16 120/72 (88) 99 08/04/18 13:22 85 16 100 Mechanical Ventilator 40 08/04/18 13:20 77 20 40 08/04/18 13:16 40 08/04/18 13:16 81 16 99 Mechanical Ventilator 40 08/04/18 13:00 79 16 124/75 (91) 99 08/04/18 12:18 78 20 40 08/04/18 12:00 82 08/04/18 12:00 40 08/04/18 12:00 Mechanical Ventilator Mechanical Ventilator 08/04/18 12:00 98.7 81 16 155/70 (98) 100 08/04/18 11:24 77 18 40 08/04/18 11:00 80 16 148/68 (94) 100 08/04/18 10:00 82 16 136/65 (88) 100 08/04/18 09:26 89 149/73 08/04/18 09:00 80 16 132/62 (85) 100 08/04/18 09:00 40 08/04/18 09:00 99 08/04/18 08:57 82 21 40 40 08/04/18 08:00 84 08/04/18 08:00 40 08/04/18 08:00 Mechanical Ventilator Mechanical Ventilator 08/04/18 08:00 98.4 84 16 135/82 (99) 100 08/04/18 07:04 91 16 141/86 (104) 100 08/04/18 06:53 80 16 100 Mechanical Ventilator 40 08/04/18 06:51 82 19 40 08/04/18 06:44 40 08/04/18 06:44 76 16 100 Mechanical Ventilator 40 08/04/18 06:00 80 18 134/86 (102) 100 08/04/18 05:08 81 17 40 08/04/18 05:00 82 18 143/79 (100) 100 08/04/18 04:00 98.3 86 20 121/77 (92) 99 08/04/18 04:00 88 08/04/18 04:00 40 08/04/18 04:00 Mechanical Ventilator Mechanical Ventilator 08/04/18 03:00 81 18 126/71 (89) 99 08/04/18 02:57 78 17 40 08/04/18 02:00 85 18 101/67 (78) 98 08/04/18 01:23 78 16 100 Mechanical Ventilator 40 08/04/18 01:23 40 08/04/18 01:08 70 16 40 08/04/18 01:07 71 17 99 Mechanical Ventilator 40 08/04/18 01:00 74 17 110/76 (87) 99 08/04/18 00:00 98.1 74 17 102/74 (83) 99 08/04/18 00:00 74 08/04/18 00:00 40 08/04/18 00:00 Mechanical Ventilator Mechanical Ventilator 08/03/18 23:18 83 18 40 08/03/18 23:00 78 17 110/71 (84) 99 08/03/18 22:00 81 18 120/70 (87) 100 08/03/18 21:16 76 17 40 08/03/18 21:00 86 17 109/72 (84) 99 Height (Feet): 5 Height (Inches): 6.00 Weight (Pounds): 220 General Appearance: WD/WN, no acute distress, other - intubated on mechanical ventilation HEENT: normocephalic, atraumatic, anicteric, mucous membranes moist, PERRL Respiratory/Chest: chest wall non-tender, no respiratory distress, no accessory muscle use, decreased breath sounds, crackles/rales Cardiovascular: normal peripheral pulses, normal rate, regular rhythm, no gallop/murmur, no JVD Abdomen: soft, non tender, no organomegaly, no mass, no scars, hypoactive bowel sounds, distended Genitourinary: normal external genitalia Extremities: no cyanosis, no clubbing, other - left arm cellulitis Skin: no rash, no lesions, ulcers, other - left hand blisters Neurologic/Psychiatric: alert, responsive Lymphatic: no neck adenopathy, no groin adenopathy Musculoskeletal: normal muscle bulk, no effusion Microbiology Date/Time Source Procedure Growth Status 08/02/18 06:10 Blood Blood Culture - Preliminary Staphylococcus Species Resulted 08/02/18 06:10 Blood Blood Culture - Preliminary Streptococcus Species Staphylococcus Species Resulted 08/03/18 02:30 Sputum Gram Stain - Final Resulted 08/03/18 02:30 Sputum Sputum Culture Pending Resulted 08/02/18 06:10 Nasal Nares Influenza Types A,B Antigen (CHANTELLE) - Final Complete 08/03/18 02:30 Indwelling Cath Urine Culture - Preliminary NO GROWTH AFTER 24 HOURS Resulted Laboratory Tests Test 08/04/18 05:07 08/04/18 12:05 White Blood Count 9.0 K/UL (4.8-10.8) Red Blood Count 4.04 M/UL (4.70-6.10) L Hemoglobin 11.3 G/DL (14.2-18.0) L Hematocrit 35.5 % (42.0-52.0) L Mean Corpuscular Volume 88 FL (80-99) Mean Corpuscular Hemoglobin 28.0 PG (27.0-31.0) Mean Corpuscular Hemoglobin Concent 31.9 G/DL (32.0-36.0) L Red Cell Distribution Width 14.6 % (11.6-14.8) Platelet Count 183 K/UL (150-450) Mean Platelet Volume 7.2 FL (6.5-10.1) Neutrophils (%) (Auto) 76.5 % (45.0-75.0) H Lymphocytes (%) (Auto) 11.0 % (20.0-45.0) L Monocytes (%) (Auto) 8.6 % (1.0-10.0) Eosinophils (%) (Auto) 3.1 % (0.0-3.0) H Basophils (%) (Auto) 0.9 % (0.0-2.0) Sodium Level 142 MMOL/L (136-145) Potassium Level 3.6 MMOL/L (3.5-5.1) Chloride Level 109 MMOL/L (98-107) H Carbon Dioxide Level 25 MMOL/L (21-32) Anion Gap 8 mmol/L (5-15) Blood Urea Nitrogen 33 mg/dL (7-18) H Creatinine 1.4 MG/DL (0.55-1.30) H Estimat Glomerular Filtration Rate mL/min (>60) Glucose Level 102 MG/DL (74-106) Calcium Level 8.7 MG/DL (8.5-10.1) Arterial Blood pH 7.406 (7.350-7.450) Arterial Blood Partial Pressure CO2 36.9 mmHg (35.0-45.0) Arterial Blood Partial Pressure O2 83.3 mmHg (75.0-100.0) Arterial Blood HCO3 22.7 mmol/L (22.0-26.0) Arterial Blood Oxygen Saturation 95.7 % (95-100) Arterial Blood Base Excess -1.7 (-2-2) Edil Test Positive Current Medications Medications (Trade) Dose Ordered Sig/Colin Route PRN Reason Start Time Stop Time Status Last Admin Dose Admin Acetaminophen (Tylenol) 650 mg Q6H PRN ORAL Mild Pain/Temp > 100.5 08/02/18 13:00 09/01/18 12:59 Albuterol/ Ipratropium (Albuterol/ Ipratropium) 3 ml Q4H PRN HHN Shortness of Breath 08/02/18 13:00 08/07/18 12:59 Albuterol/ Ipratropium (Albuterol/ Ipratropium) 3 ml Q6HRT HHN 08/02/18 13:00 08/07/18 12:59 08/04/18 19:13 Atorvastatin Calcium (Lipitor) 20 mg BEDTIME ORAL 08/03/18 21:00 09/02/18 20:59 08/03/18 20:42 Carbidopa/Levodopa (Sinemet 25/100) 1 tab THREE TIMES A DAY ORAL 08/03/18 18:00 09/02/18 17:59 08/04/18 18:30 Diltiazem HCl (Cardizem CD) 240 mg DAILY ORAL 08/03/18 10:00 09/02/18 09:59 08/04/18 09:26 Gabapentin (Neurontin) 100 mg QHS ORAL 08/03/18 21:00 09/02/18 20:59 08/03/18 20:42 Lorazepam (Ativan 2mg/ml 1ml) 1 mg Q4H PRN IV For Anxiety 08/02/18 13:46 08/09/18 13:45 Meropenem 1 gm/ Sodium Chloride 110 ml @ 220 mls/hr Q12HR@0200,1400 IVPB 08/03/18 14:00 08/08/18 13:59 08/04/18 14:22 Ondansetron HCl (Zofran) 4 mg Q6H PRN IVP Nausea & Vomiting 08/02/18 13:00 09/01/18 12:59 Pantoprazole (Protonix) 40 mg DAILY IVP 08/03/18 09:00 09/02/18 08:59 08/04/18 09:25 Sodium Chloride 1,000 ml @ 125 mls/hr Q8H IV 08/02/18 13:00 09/01/18 12:59 08/04/18 18:30 Tamsulosin HCl (Flomax) 0.4 mg BEDTIME ORAL 08/03/18 21:00 09/02/18 20:59 08/03/18 20:41 Vancomycin HCl (Vanco rx to dose) 1 ea DAILY PRN MISC Per rx protocol 08/02/18 10:45 09/01/18 10:44 Vancomycin HCl 1 gm/Dextrose 275 ml @ 183.708 mls/hr Q24H IVPB 08/04/18 09:00 08/09/18 08:59 08/04/18 09:59 Venlafaxine HCl (Effexor-XR) 37.5 mg DAILY ORAL 08/04/18 09:00 09/03/18 08:59 08/04/18 09:25 Vitamin B Complex/ Vit C/Folic Acid (Nephrovite) 1 tab DAILY ORAL 08/04/18 09:00 09/03/18 08:59 08/04/18 09:25 Srini Sam M.D. Aug 04, 2018 20:28
--- NOTE | 2018-08-04 22:00 | NUR ---
NURSE NOTES: reposition and suction no acute distress noted
[2018-08-04] MEDS: Atorvastatin 20mg tab ORAL SCH (22:07)
[2018-08-04] MEDS: Tamsulosin 0.4mg cap ORAL SCH (22:07)
[2018-08-05] VITALS (24 sets, daily range): BP systolic 136–167; BP diastolic 77–98
--- NOTE | 2018-08-05 | NUR ---
NURSE NOTES: vs stable iiv infusing well site good
[2018-08-05] MEDS: Albuterol/Ipratropium 3ml neb HHN SCH ×4 (01:24→19:23)
--- NOTE | 2018-08-05 02:00 | NUR ---
NURSE NOTES: am care pire care back care done
[2018-08-05] MEDS: Meropenem 1gm/NS 110ml IVPB SCH ×6 (02:31→22:15)
--- NOTE | 2018-08-05 03:00 | NUR ---
HAND-OFF: Report given to lebron rn using sbar.
--- NOTE | 2018-08-05 03:00 | NUR ---
NURSE NOTES:Received pt closing his eyes most of the time but respond to tactile stimulation, Afib on the monitor, Bp stable. Orally intubated on ac mode, suctioned tk whitish to beige secretions lg in amt . HOB kept elevated, watch for any resp. distress. Will continue to monitor.
--- NOTE | 2018-08-05 05:00 | NUR ---
NURSE NOTES:Diuresing well via arellano catheter lg amt of leizabet yellow urine. Monitor I and O. Monitor lytes.
--- NOTE | 2018-08-05 06:00 | NUR ---
NURSE NOTES:Still on Afib but controlled rate. No resp. distress noted.
--- NOTE | 2018-08-05 07:04 | NUR ---
HAND-OFF: Report given to Ani RN using sbar.
--- NOTE | 2018-08-05 07:15 | NUR ---
RESPIRATORY NOTE: received pt on vent, intubated with ETT 7.5, placed 25cm at the lip. vent orders are current. no resp distress noted at this time. vent is plugged into the red outlet with alarms on and audible. will cont to follow weaning orders later this morning
--- NOTE | 2018-08-05 07:48 | NUR ---
RESPIRATORY NOTE: placed pt on CPAP PS8 at 0745. will cont to monitor.
--- NOTE | 2018-08-05 08:00 | NUR ---
NURSE NOTES: Opens eyes to name, localizes pain. Chronic afib on security monitor doctor aware. intubated 7.5/23 cm lipline. AC 16 VT 500 Fio2 40% Peep of 5. Thick moderate amount of sputum suctioned with red spects noted. Patient is NPO at this time. Park draining. Stage 2 sacral, L hand blister coered with biotin P200 mattress intact. R forearm 20 L forearm 20 NS at 125 cc/hr. Patient in no distress at this time. VSS. Will continue to monitor patient. Bed alarm on, call light within reach, HOB elevated.
[2018-08-05 08:11] LABS: BASOPHILS % (AUTO) 0.8 % (0.0-2.0); EOSINOPHILS % (AUTO) 1.5 % (0.0-3.0); HEMATOCRIT 36.4 % (42.0-52.0); HEMOGLOBIN 11.6 G/DL (14.2-18.0); LYMPHOCYTES % (AUTO) 12.5 % (20.0-45.0); MEAN CORPUSCULAR VOLUME 87 FL (80-99); MONOCYTES % (AUTO) 7.3 % (1.0-10.0); NEUTROPHILS % (AUTO) 77.8 % (45.0-75.0); PLATELET COUNT 177 K/UL (150-450); RED BLOOD COUNT 4.19 M/UL (4.70-6.10); RED CELL DISTRIBUTION WIDTH 14.6 % (11.6-14.8)
--- NOTE | 2018-08-05 08:50 | General Progress Note ---
Assessment/Plan Status: stable Assessment/Plan 1. Acute Respiratory failure - intubated and still in ICU. Pulm following. 2. Asp Pneumonia and sepsis - Cont IV ABX meripenem and Vanco per ID. follow cultures. 3. 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 4. Parkinson dementia - cont home meds. 5. Chronic Lt leg Popliteal thrombosis - off anticoagulation due to high risk of bleeding and previous hx of GI bleeding. 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 6. Chronic kidney disease - stable. 7. Hx of renal mass - family refused the work up last admission. currently DNR. 8. Hx of CVA with one sided hemiplegia 9. Depression - cont home meds. 10. Neuropathy - stable. 11. Hyperlipidemia - cont home med. Subjective Date patient seen: Aug 04, 2018 Time patient seen: 08:00 Constitutional: Reports: weakness HEENT: Reports: no symptoms Cardiovascular: Reports: no symptoms Respiratory: Reports: no symptoms Gastrointestinal/Abdominal: Reports: no symptoms Genitourinary: Reports: no symptoms Neurologic/Psychiatric: Reports: no symptoms Endocrine: Reports: no symptoms Hematologic/Lymphatic: Reports: no symptoms Allergies: Coded Allergies: MORPHINE (Verified Allergy, Unknown, 03/25/18) PENICILLINS (Verified Allergy, Unknown, 03/05/18) Subjective Today, he is doing better. His WBC improving. Intubated and in ICU. Objective Last 24 Hour Vital Signs Date Time Temp Pulse Resp B/P (MAP) Pulse Ox O2 Delivery O2 Flow Rate FiO2 08/05/18 08:00 96 17 157/88 (111) 98 08/05/18 08:00 30 08/05/18 08:00 97 08/05/18 08:00 Mechanical Ventilator Mechanical Ventilator 08/05/18 07:20 87 18 100 Mechanical Ventilator 30 08/05/18 07:15 90 16 30 08/05/18 07:14 99 16 98 Mechanical Ventilator 30 08/05/18 07:00 87 18 159/91 (113) 98 08/05/18 06:00 80 18 152/82 (105) 98 08/05/18 05:04 84 19 30 08/05/18 05:00 98.2 85 18 155/81 (105) 98 08/05/18 04:08 30 08/05/18 04:00 79 08/05/18 04:00 Mechanical Ventilator Mechanical Ventilator 08/05/18 04:00 89 17 143/91 (108) 100 08/05/18 03:11 96 22 30 08/05/18 03:00 91 17 149/77 (101) 99 08/05/18 02:00 84 19 148/87 (107) 97 08/05/18 01:34 80 18 100 Mechanical Ventilator 35 08/05/18 01:25 79 19 35 08/05/18 01:24 40 08/05/18 01:24 78 23 100 Mechanical Ventilator 35 08/05/18 01:00 77 18 140/80 (100) 100 08/05/18 00:00 30 08/05/18 00:00 Mechanical Ventilator Mechanical Ventilator 08/05/18 00:00 98.0 79 16 140/80 (100) 100 08/05/18 00:00 79 15 149/80 (103) 100 08/04/18 23:22 79 19 40 08/04/18 23:00 79 16 136/82 (100) 100 08/04/18 22:00 79 16 138/73 (94) 100 08/04/18 21:11 89 21 40 08/04/18 21:00 76 17 118/79 (92) 99 08/04/18 20:00 Mechanical Ventilator Mechanical Ventilator 08/04/18 20:00 76 08/04/18 20:00 40 08/04/18 20:00 98.4 80 16 116/77 (90) 99 08/04/18 19:23 79 18 100 Mechanical Ventilator 40 08/04/18 19:14 74 20 40 08/04/18 19:13 40 08/04/18 19:13 72 22 99 Mechanical Ventilator 40 08/04/18 19:00 77 16 134/75 (94) 99 08/04/18 18:00 72 16 133/72 (92) 99 08/04/18 17:09 76 18 40 08/04/18 17:00 75 16 122/70 (87) 99 08/04/18 16:00 40 08/04/18 16:00 77 08/04/18 16:00 Mechanical Ventilator Mechanical Ventilator 08/04/18 16:00 98.6 74 16 128/77 (94) 99 08/04/18 15:00 74 21 40 08/04/18 15:00 77 16 124/76 (92) 99 08/04/18 14:00 78 16 120/72 (88) 99 08/04/18 13:22 85 16 100 Mechanical Ventilator 40 08/04/18 13:20 77 20 40 08/04/18 13:16 40 08/04/18 13:16 81 16 99 Mechanical Ventilator 40 08/04/18 13:00 79 16 124/75 (91) 99 08/04/18 12:18 78 20 40 08/04/18 12:00 82 08/04/18 12:00 40 08/04/18 12:00 Mechanical Ventilator Mechanical Ventilator 08/04/18 12:00 98.7 81 16 155/70 (98) 100 08/04/18 11:24 77 18 40 08/04/18 11:00 80 16 148/68 (94) 100 08/04/18 10:00 82 16 136/65 (88) 100 08/04/18 09:26 89 149/73 08/04/18 09:00 80 16 132/62 (85) 100 08/04/18 09:00 40 08/04/18 09:00 99 08/04/18 08:57 82 21 40 40 Intake and Output 08/04/18 08/05/18 19:00 07:00 Intake Total 1635.000 ml 1235 ml Output Total 940 ml 750 ml Balance 695.000 ml 485 ml Intake Oral 0 ml 0 ml IV Total 1635.000 ml 1235 ml Output Urine Total 940 ml 750 ml # Bowel Movements 1 Laboratory Tests 08/04/18 12:05: Arterial Blood pH 7.406, Arterial Blood Partial Pressure CO2 36.9, Arterial Blood Partial Pressure O2 83.3, Arterial Blood HCO3 22.7, Arterial Blood Oxygen Saturation 95.7, Arterial Blood Base Excess -1.7, Edil Test Positive 08/05/18 08:01: White Blood Count 9.0, Red Blood Count 4.19L, Hemoglobin 11.6L, Hematocrit 36.4L , Mean Corpuscular Volume 87, Mean Corpuscular Hemoglobin 27.8, Mean Corpuscular Hemoglobin Concent 32.0, Red Cell Distribution Width 14.6, Platelet Count 177, Mean Platelet Volume 6.5, Neutrophils (%) (Auto) 77.8H, Lymphocytes ( %) (Auto) 12.5L, Monocytes (%) (Auto) 7.3, Eosinophils (%) (Auto) 1.5, Basophils (%) (Auto) 0.8, Sodium Level [Pending], Potassium Level [Pending], Chloride Level [Pending], Carbon Dioxide Level [Pending], Blood Urea Nitrogen [ Pending], Creatinine [Pending], Estimat Glomerular Filtration Rate [Pending], Glucose Level [Pending], Calcium Level [Pending], Total Bilirubin [Pending], Aspartate Amino Transf (AST/SGOT) [Pending], Alanine Aminotransferase (ALT/SGPT ) [Pending], Alkaline Phosphatase [Pending], Total Protein [Pending], Albumin [ Pending], Globulin [Pending], Vancomycin Level Trough [Pending] Height (Feet): 5 Height (Inches): 6.00 Weight (Pounds): 220 General Appearance: no apparent distress EENT: normal ENT inspection Neck: non-tender, normal alignment, supple Cardiovascular: normal rate, regular rhythm Respiratory/Chest: chest wall non-tender, lungs clear Abdomen: normal bowel sounds, non tender, soft Extremities: normal range of motion, non-tender Edema: no edema noted Arm (L), no edema noted Arm (R), no edema noted Leg (L), no edema noted Leg (R), no edema noted Pedal (L), no edema noted Pedal (R), no edema noted Generalized Skin: warm/dry Lymphatic: normal anterior cervical (L), normal anterior cervical (R), normal posterior cervical (L), normal posterior cervical (R), normal submandibular (L) , normal submandibular (R), normal supraclavicular (L), normal supraclavicular ( R), normal axillary (L), normal axillary (R), normal inguinal (L), normal inguinal (R), normal other Shelby Arrington MD Aug 05, 2018 08:50
--- NOTE | 2018-08-05 08:54 | General Progress Note ---
Assessment/Plan Status: stable Assessment/Plan 1. Acute Respiratory failure - intubated and still in ICU. weaning off respirator today. Pulm following. will start tube feeding after extubation. 2. Asp Pneumonia Cont IV ABX per ID. follow cultures. 3. sepsis - Cont IV ABX meripenem and Vanco per ID. follow cultures. 4. 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 5. Parkinson dementia - cont home meds. 6. Chronic Lt leg Popliteal thrombosis - off anticoagulation due to high risk of bleeding and previous hx of GI bleeding. 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 7. Chronic kidney disease - stable. 8. Hx of renal mass - family refused the work up last admission. currently DNR. 9. Hx of CVA with one sided hemiplegia 10. Depression - cont home meds. 11. Neuropathy - stable. 12. Hyperlipidemia - cont home med. Subjective Date patient seen: Aug 05, 2018 Constitutional: Reports: weakness HEENT: Reports: no symptoms Cardiovascular: Reports: no symptoms Respiratory: Reports: no symptoms Gastrointestinal/Abdominal: Reports: no symptoms Genitourinary: Reports: no symptoms Neurologic/Psychiatric: Reports: no symptoms Endocrine: Reports: no symptoms Hematologic/Lymphatic: Reports: no symptoms Allergies: Coded Allergies: MORPHINE (Verified Allergy, Unknown, 03/25/18) PENICILLINS (Verified Allergy, Unknown, 03/05/18) Subjective Today, he is doing better. His WBC improving and weaning off respirator today. Intubated and in ICU. Objective Last 24 Hour Vital Signs Date Time Temp Pulse Resp B/P (MAP) Pulse Ox O2 Delivery O2 Flow Rate FiO2 08/05/18 08:00 96 17 157/88 (111) 98 08/05/18 08:00 30 08/05/18 08:00 97 08/05/18 08:00 Mechanical Ventilator Mechanical Ventilator 08/05/18 07:20 87 18 100 Mechanical Ventilator 30 08/05/18 07:15 90 16 30 08/05/18 07:14 99 16 98 Mechanical Ventilator 30 08/05/18 07:00 87 18 159/91 (113) 98 08/05/18 06:00 80 18 152/82 (105) 98 08/05/18 05:04 84 19 30 08/05/18 05:00 98.2 85 18 155/81 (105) 98 08/05/18 04:08 30 08/05/18 04:00 79 08/05/18 04:00 Mechanical Ventilator Mechanical Ventilator 08/05/18 04:00 89 17 143/91 (108) 100 08/05/18 03:11 96 22 30 08/05/18 03:00 91 17 149/77 (101) 99 08/05/18 02:00 84 19 148/87 (107) 97 08/05/18 01:34 80 18 100 Mechanical Ventilator 35 08/05/18 01:25 79 19 35 08/05/18 01:24 40 08/05/18 01:24 78 23 100 Mechanical Ventilator 35 08/05/18 01:00 77 18 140/80 (100) 100 08/05/18 00:00 30 08/05/18 00:00 Mechanical Ventilator Mechanical Ventilator 08/05/18 00:00 98.0 79 16 140/80 (100) 100 08/05/18 00:00 79 15 149/80 (103) 100 08/04/18 23:22 79 19 40 08/04/18 23:00 79 16 136/82 (100) 100 08/04/18 22:00 79 16 138/73 (94) 100 08/04/18 21:11 89 21 40 08/04/18 21:00 76 17 118/79 (92) 99 08/04/18 20:00 Mechanical Ventilator Mechanical Ventilator 08/04/18 20:00 76 08/04/18 20:00 40 08/04/18 20:00 98.4 80 16 116/77 (90) 99 08/04/18 19:23 79 18 100 Mechanical Ventilator 40 08/04/18 19:14 74 20 40 08/04/18 19:13 40 08/04/18 19:13 72 22 99 Mechanical Ventilator 40 08/04/18 19:00 77 16 134/75 (94) 99 08/04/18 18:00 72 16 133/72 (92) 99 08/04/18 17:09 76 18 40 08/04/18 17:00 75 16 122/70 (87) 99 08/04/18 16:00 40 08/04/18 16:00 77 08/04/18 16:00 Mechanical Ventilator Mechanical Ventilator 08/04/18 16:00 98.6 74 16 128/77 (94) 99 08/04/18 15:00 74 21 40 08/04/18 15:00 77 16 124/76 (92) 99 08/04/18 14:00 78 16 120/72 (88) 99 08/04/18 13:22 85 16 100 Mechanical Ventilator 40 08/04/18 13:20 77 20 40 08/04/18 13:16 40 08/04/18 13:16 81 16 99 Mechanical Ventilator 40 08/04/18 13:00 79 16 124/75 (91) 99 08/04/18 12:18 78 20 40 08/04/18 12:00 82 08/04/18 12:00 40 08/04/18 12:00 Mechanical Ventilator Mechanical Ventilator 08/04/18 12:00 98.7 81 16 155/70 (98) 100 08/04/18 11:24 77 18 40 08/04/18 11:00 80 16 148/68 (94) 100 08/04/18 10:00 82 16 136/65 (88) 100 08/04/18 09:26 89 149/73 08/04/18 09:00 80 16 132/62 (85) 100 08/04/18 09:00 40 08/04/18 09:00 99 08/04/18 08:57 82 21 40 40 Intake and Output 08/04/18 08/05/18 19:00 07:00 Intake Total 1635.000 ml 1235 ml Output Total 940 ml 750 ml Balance 695.000 ml 485 ml Intake Oral 0 ml 0 ml IV Total 1635.000 ml 1235 ml Output Urine Total 940 ml 750 ml # Bowel Movements 1 Laboratory Tests 08/04/18 12:05: Arterial Blood pH 7.406, Arterial Blood Partial Pressure CO2 36.9, Arterial Blood Partial Pressure O2 83.3, Arterial Blood HCO3 22.7, Arterial Blood Oxygen Saturation 95.7, Arterial Blood Base Excess -1.7, Edil Test Positive 08/05/18 08:01: White Blood Count 9.0, Red Blood Count 4.19L, Hemoglobin 11.6L, Hematocrit 36.4L , Mean Corpuscular Volume 87, Mean Corpuscular Hemoglobin 27.8, Mean Corpuscular Hemoglobin Concent 32.0, Red Cell Distribution Width 14.6, Platelet Count 177, Mean Platelet Volume 6.5, Neutrophils (%) (Auto) 77.8H, Lymphocytes ( %) (Auto) 12.5L, Monocytes (%) (Auto) 7.3, Eosinophils (%) (Auto) 1.5, Basophils (%) (Auto) 0.8, Sodium Level [Pending], Potassium Level [Pending], Chloride Level [Pending], Carbon Dioxide Level [Pending], Blood Urea Nitrogen [ Pending], Creatinine [Pending], Estimat Glomerular Filtration Rate [Pending], Glucose Level [Pending], Calcium Level [Pending], Total Bilirubin [Pending], Aspartate Amino Transf (AST/SGOT) [Pending], Alanine Aminotransferase (ALT/SGPT ) [Pending], Alkaline Phosphatase [Pending], Total Protein [Pending], Albumin [ Pending], Globulin [Pending], Vancomycin Level Trough [Pending] Height (Feet): 5 Height (Inches): 6.00 Weight (Pounds): 220 General Appearance: no apparent distress, alert EENT: normal ENT inspection Neck: non-tender Cardiovascular: regularly irregular Respiratory/Chest: lungs clear Abdomen: non tender, soft Extremities: normal range of motion, non-tender Edema: no edema noted Arm (L), no edema noted Arm (R), no edema noted Leg (L), no edema noted Leg (R), no edema noted Pedal (L), no edema noted Pedal (R), no edema noted Generalized Skin: warm/dry Lymphatic: normal anterior cervical (L), normal anterior cervical (R), normal posterior cervical (L), normal posterior cervical (R), normal submandibular (L) , normal submandibular (R), normal supraclavicular (L), normal supraclavicular ( R), normal axillary (L), normal axillary (R), normal inguinal (L), normal inguinal (R), normal other Shelby Arrington MD Aug 05, 2018 08:54
[2018-08-05] MEDS: Vancomycin 1gm/D5W 275ml IVPB SCH ×2 (09:00)
[2018-08-05 09:28] LABS: ALANINE AMINOTRANSFERASE 17 U/L (12-78); ALBUMIN 2.1 G/DL (3.4-5.0); ALBUMIN/GLOBULIN RATIO 0.5 (1.0-2.7); ALKALINE PHOSPHATASE 77 U/L (46-116); ANION GAP 11 mmol/L (5-15); ASPARTATE AMINO TRANSFERASE 20 U/L (15-37); BILIRUBIN,TOTAL 0.5 MG/DL (0.2-1.0); BLOOD UREA NITROGEN 24 mg/dL (7-18); CALCIUM 8.5 MG/DL (8.5-10.1); CARBON DIOXIDE 22 MMOL/L (21-32); CHLORIDE 109 MMOL/L (98-107); CREATININE 1.1 MG/DL (0.55-1.30); POTASSIUM 3.7 MMOL/L (3.5-5.1); SODIUM 142 MMOL/L (136-145)
[2018-08-05] MEDS: Pantoprazole Inj IVP SCH (09:58)
[2018-08-05] MEDS: Venlafaxine XR 37.5mg cap ORAL SCH (09:59)
[2018-08-05] MEDS: dilTIAZem HCl CD 240mg cap ORAL SCH (09:59)
[2018-08-05] MEDS: Levodopa/Carbidopa 25/100 tab ORAL SCH ×3 (09:59→18:31)
[2018-08-05] MEDS: Nephrovite tab (Rena-Vite) ORAL SCH (09:59)
--- NOTE | 2018-08-05 10:00 | NUR ---
NURSE NOTES: Unable to scan meropenem because it kept showing as a "discontinued med." Medication clicked admin without scanning. Patient turned and repositioned. Tolerated weaning well. VSS. Patient eyes open, tracks, but does not follow command. No new orders at this time. Will continue plan of care.
--- NOTE | 2018-08-05 10:29 | Cardiology Progress Note ---
Assessment/Plan Status: stable Assessment/Plan Assessment/Plan Status: stable Assessment/Plan Assessment: Altered Mental Status parkinson STUART CKD AFIB RVR HLD CVA GI bleed Plan: Continue cardizem 240 mg CD - rates controlled Heparin Gtt --> transition to NOAC upon discharge No plans for cardioversion TTE with aortic stenosis Continue abx for aspiration PNA Pulmonary toilet Dr. Bay to resume care when returns to [facility] Critical care 35 minutes Subjective Cardiovascular: Reports: no symptoms Respiratory: Reports: no symptoms Gastrointestinal/Abdominal: Reports: no symptoms Genitourinary: Reports: no symptoms Subjective NO acute events, heart rate controlled, vitals stable, no distress, remains intubated but opens eyes to commands Objective Last 24 Hour Vital Signs Date Time Temp Pulse Resp B/P (MAP) Pulse Ox O2 Delivery O2 Flow Rate FiO2 08/05/18 10:00 95 17 154/85 (108) 98 08/05/18 09:59 91 159/88 08/05/18 09:04 95 18 30 08/05/18 09:03 98 08/05/18 09:00 98.7 98 17 159/88 (111) 98 08/05/18 08:00 96 17 157/88 (111) 98 08/05/18 08:00 30 08/05/18 08:00 97 08/05/18 08:00 Mechanical Ventilator Mechanical Ventilator 08/05/18 07:20 87 18 100 Mechanical Ventilator 30 08/05/18 07:15 90 16 30 08/05/18 07:14 99 16 98 Mechanical Ventilator 30 08/05/18 07:00 87 18 159/91 (113) 98 08/05/18 06:00 80 18 152/82 (105) 98 08/05/18 05:04 84 19 30 08/05/18 05:00 98.2 85 18 155/81 (105) 98 08/05/18 04:08 30 08/05/18 04:00 79 08/05/18 04:00 Mechanical Ventilator Mechanical Ventilator 08/05/18 04:00 89 17 143/91 (108) 100 08/05/18 03:11 96 22 30 08/05/18 03:00 91 17 149/77 (101) 99 08/05/18 02:00 84 19 148/87 (107) 97 08/05/18 01:34 80 18 100 Mechanical Ventilator 35 08/05/18 01:25 79 19 35 08/05/18 01:24 40 08/05/18 01:24 78 23 100 Mechanical Ventilator 35 08/05/18 01:00 77 18 140/80 (100) 100 08/05/18 00:00 30 08/05/18 00:00 Mechanical Ventilator Mechanical Ventilator 08/05/18 00:00 98.0 79 16 140/80 (100) 100 08/05/18 00:00 79 15 149/80 (103) 100 08/04/18 23:22 79 19 40 08/04/18 23:00 79 16 136/82 (100) 100 08/04/18 22:00 79 16 138/73 (94) 100 08/04/18 21:11 89 21 40 08/04/18 21:00 76 17 118/79 (92) 99 08/04/18 20:00 Mechanical Ventilator Mechanical Ventilator 08/04/18 20:00 76 08/04/18 20:00 40 08/04/18 20:00 98.4 80 16 116/77 (90) 99 08/04/18 19:23 79 18 100 Mechanical Ventilator 40 08/04/18 19:14 74 20 40 08/04/18 19:13 40 08/04/18 19:13 72 22 99 Mechanical Ventilator 40 08/04/18 19:00 77 16 134/75 (94) 99 08/04/18 18:00 72 16 133/72 (92) 99 08/04/18 17:09 76 18 40 08/04/18 17:00 75 16 122/70 (87) 99 08/04/18 16:00 40 08/04/18 16:00 77 08/04/18 16:00 Mechanical Ventilator Mechanical Ventilator 08/04/18 16:00 98.6 74 16 128/77 (94) 99 08/04/18 15:00 74 21 40 08/04/18 15:00 77 16 124/76 (92) 99 08/04/18 14:00 78 16 120/72 (88) 99 08/04/18 13:22 85 16 100 Mechanical Ventilator 40 08/04/18 13:20 77 20 40 08/04/18 13:16 40 08/04/18 13:16 81 16 99 Mechanical Ventilator 40 08/04/18 13:00 79 16 124/75 (91) 99 08/04/18 12:18 78 20 40 08/04/18 12:00 82 08/04/18 12:00 40 08/04/18 12:00 Mechanical Ventilator Mechanical Ventilator 08/04/18 12:00 98.7 81 16 155/70 (98) 100 08/04/18 11:24 77 18 40 08/04/18 11:00 80 16 148/68 (94) 100 General Appearance: no apparent distress, on vent EENT: PERRL/EOMI, normal ENT inspection, TMs normal Neck: non-tender, normal alignment, supple, normal inspection, no JVD Rhythm: Afib Cardiovascular: normal peripheral pulses, normal rate, arrhythmia Respiratory/Chest: chest wall non-tender, crackles/rales, rhonchi - bilaterally Abdomen: normal bowel sounds, non tender, soft, no organomegaly Neurologic: 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 show entertainer II-XII grossly normal, no motor/sensory deficits Intake and Output 08/04/18 08/05/18 19:00 07:00 Intake Total 1635.000 ml 1235 ml Output Total 940 ml 750 ml Balance 695.000 ml 485 ml Intake Oral 0 ml 0 ml IV Total 1635.000 ml 1235 ml Output Urine Total 940 ml 750 ml # Bowel Movements 1 Laboratory Tests Test 08/04/18 12:05 08/05/18 08:01 Arterial Blood pH 7.406 (7.350-7.450) Arterial Blood Partial Pressure CO2 36.9 mmHg (35.0-45.0) Arterial Blood Partial Pressure O2 83.3 mmHg (75.0-100.0) Arterial Blood HCO3 22.7 mmol/L (22.0-26.0) Arterial Blood Oxygen Saturation 95.7 % (95-100) Arterial Blood Base Excess -1.7 (-2-2) Edil Test Positive White Blood Count 9.0 K/UL (4.8-10.8) Red Blood Count 4.19 M/UL (4.70-6.10) L Hemoglobin 11.6 G/DL (14.2-18.0) L Hematocrit 36.4 % (42.0-52.0) L Mean Corpuscular Volume 87 FL (80-99) Mean Corpuscular Hemoglobin 27.8 PG (27.0-31.0) Mean Corpuscular Hemoglobin Concent 32.0 G/DL (32.0-36.0) Red Cell Distribution Width 14.6 % (11.6-14.8) Platelet Count 177 K/UL (150-450) Mean Platelet Volume 6.5 FL (6.5-10.1) Neutrophils (%) (Auto) 77.8 % (45.0-75.0) H Lymphocytes (%) (Auto) 12.5 % (20.0-45.0) L Monocytes (%) (Auto) 7.3 % (1.0-10.0) Eosinophils (%) (Auto) 1.5 % (0.0-3.0) Basophils (%) (Auto) 0.8 % (0.0-2.0) Sodium Level 142 MMOL/L (136-145) Potassium Level 3.7 MMOL/L (3.5-5.1) Chloride Level 109 MMOL/L (98-107) H Carbon Dioxide Level 22 MMOL/L (21-32) Anion Gap 11 mmol/L (5-15) Blood Urea Nitrogen 24 mg/dL (7-18) H Creatinine 1.1 MG/DL (0.55-1.30) Estimat Glomerular Filtration Rate mL/min (>60) Glucose Level 75 MG/DL (74-106) Calcium Level 8.5 MG/DL (8.5-10.1) Total Bilirubin 0.5 MG/DL (0.2-1.0) Aspartate Amino Transf (AST/SGOT) 20 U/L (15-37) Alanine Aminotransferase (ALT/SGPT) 17 U/L (12-78) Alkaline Phosphatase 77 U/L (46-116) Total Protein 6.2 G/DL (6.4-8.2) L Albumin 2.1 G/DL (3.4-5.0) L Globulin 4.1 g/dL Albumin/Globulin Ratio 0.5 (1.0-2.7) L Vancomycin Level Trough 11.8 ug/mL (5.0-12.0) Microbiology Date/Time Source Procedure Growth Status 08/03/18 02:30 Sputum Gram Stain - Final Resulted 08/03/18 02:30 Sputum Sputum Culture Pending Resulted 08/03/18 02:30 Indwelling Cath Urine Culture - Final NO GROWTH AFTER 48 HOURS Richie Cook MD Aug 05, 2018 10:29
[2018-08-05] MEDS: Vancomycin 750mg/NS 275ml IVPB SCH ×4 (11:00→22:15)
--- NOTE | 2018-08-05 12:00 | NUR ---
NURSE NOTES: Patient turned and repositioned. no new orders at this time. will continue plan of care.
--- NOTE | 2018-08-05 12:17 | Pulmonolgy Critical Care Note ---
Critical Care - Asmt/Plan Problems: (1) Sepsis (2) Respiratory failure, acute (3) Airway intubation performed without difficulty (4) LLL pneumonia (5) Left arm cellulitis (6) STUART (acute kidney injury) (7) CKD (chronic kidney disease) (8) Dementia (9) Leukocytosis (10) FTT (failure to thrive) in adult (11) Afib Respiratory: monitor respiratory rate, adjust FIO2, weaning trial - resume in am, other - Passed SBT but will keen intubated ON until family decides Re: re- intubation status Cardiac: continue to monitor HR/BP, other - Hold A/C 2/2 bleed riks Renal: keep IV fluid, check electrolytes Infectious Disease: check cultures, continue antibiotics - per ID Gastrointestinal: start feedings - and then hold in am for extubation Endocrine: monitor blood sugar Hematologic: monitor H/H Prophylaxis: Protonix, Heparin - SQ, SCDs Disposition: keep in ICU Time Spent (Minutes): other - DNAR Notes Reviewed: residential roofer helper, cardio, ID Discussed with: nurses, consultants Critical Care - Objective Last 24 Hour Vital Signs Date Time Temp Pulse Resp B/P (MAP) Pulse Ox O2 Delivery O2 Flow Rate FiO2 08/05/18 12:00 Mechanical Ventilator Mechanical Ventilator 08/05/18 12:00 30 08/05/18 10:41 101 18 08/05/18 10:00 95 17 154/85 (108) 98 08/05/18 09:59 91 159/88 08/05/18 09:04 95 18 30 08/05/18 09:03 98 08/05/18 09:00 98.7 98 17 159/88 (111) 98 08/05/18 08:00 96 17 157/88 (111) 98 08/05/18 08:00 30 08/05/18 08:00 97 08/05/18 08:00 Mechanical Ventilator Mechanical Ventilator 08/05/18 07:20 87 18 100 Mechanical Ventilator 30 08/05/18 07:15 90 16 30 08/05/18 07:14 99 16 98 Mechanical Ventilator 30 08/05/18 07:00 87 18 159/91 (113) 98 08/05/18 06:00 80 18 152/82 (105) 98 08/05/18 05:04 84 19 30 08/05/18 05:00 98.2 85 18 155/81 (105) 98 08/05/18 04:08 30 08/05/18 04:00 79 08/05/18 04:00 Mechanical Ventilator Mechanical Ventilator 08/05/18 04:00 89 17 143/91 (108) 100 08/05/18 03:11 96 22 30 08/05/18 03:00 91 17 149/77 (101) 99 08/05/18 02:00 84 19 148/87 (107) 97 08/05/18 01:34 80 18 100 Mechanical Ventilator 35 08/05/18 01:25 79 19 35 08/05/18 01:24 40 08/05/18 01:24 78 23 100 Mechanical Ventilator 35 08/05/18 01:00 77 18 140/80 (100) 100 08/05/18 00:00 30 08/05/18 00:00 Mechanical Ventilator Mechanical Ventilator 08/05/18 00:00 98.0 79 16 140/80 (100) 100 08/05/18 00:00 79 15 149/80 (103) 100 08/04/18 23:22 79 19 40 08/04/18 23:00 79 16 136/82 (100) 100 08/04/18 22:00 79 16 138/73 (94) 100 08/04/18 21:11 89 21 40 08/04/18 21:00 76 17 118/79 (92) 99 08/04/18 20:00 Mechanical Ventilator Mechanical Ventilator 08/04/18 20:00 76 08/04/18 20:00 40 08/04/18 20:00 98.4 80 16 116/77 (90) 99 08/04/18 19:23 79 18 100 Mechanical Ventilator 40 08/04/18 19:14 74 20 40 08/04/18 19:13 40 08/04/18 19:13 72 22 99 Mechanical Ventilator 40 08/04/18 19:00 77 16 134/75 (94) 99 08/04/18 18:00 72 16 133/72 (92) 99 08/04/18 17:09 76 18 40 08/04/18 17:00 75 16 122/70 (87) 99 08/04/18 16:00 40 08/04/18 16:00 77 08/04/18 16:00 Mechanical Ventilator Mechanical Ventilator 08/04/18 16:00 98.6 74 16 128/77 (94) 99 08/04/18 15:00 74 21 40 08/04/18 15:00 77 16 124/76 (92) 99 08/04/18 14:00 78 16 120/72 (88) 99 08/04/18 13:22 85 16 100 Mechanical Ventilator 40 08/04/18 13:20 77 20 40 08/04/18 13:16 40 08/04/18 13:16 81 16 99 Mechanical Ventilator 40 08/04/18 13:00 79 16 124/75 (91) 99 08/04/18 12:18 78 20 40 Status: awake Condition: improving, other - intubated HEENT: atraumatic, normocephalic Lungs: clear Heart: HR/BP stable, irregular Abdomen: soft, non-tender, active bowel sounds, feeding tube Extremities: no C/C/E Micro: Microbiology Date/Time Source Procedure Growth Status 08/03/18 02:30 Sputum Gram Stain - Final Complete 08/03/18 02:30 Sputum Sputum Culture - Final NORMAL UPPER RESPIRATORY JOHN PRESENT Complete 08/03/18 02:30 Indwelling Cath Urine Culture - Final NO GROWTH AFTER 48 HOURS Complete Blood Sugars: BS controlled Critical Care - Subjective ROS Limited/Unobtainable: Yes ICU Day: 4 Intubation Day: 4 Interval Events: Cash SBT Family deciding Re: post extubation intubation status, ? DNI Condition: improving IV Access: peripheral EKG Rhythm: Atrial Fibrillation FI02: 30 Vent Support Breath Rate: 16 Vent Support Mode: AC Vent Tidal Volume: 500 Sputum Amount: Moderate PEEP: 5.0 PIP: 15 Secretions: Mild/mod clear Fluids: NS125 I&O: Intake and Output 08/04/18 08/05/18 18:59 06:59 Intake Total 1510.000 ml 1360 ml Output Total 890 ml 710 ml Balance 620.000 ml 650 ml Intake Oral 0 ml 0 ml IV Total 1510.000 ml 1360 ml Output Urine Total 890 ml 710 ml # Bowel Movements 1 Subjective: SABRINA ET-Tube: 7.5 ET Position: 23 Labs: Laboratory Tests Test 08/05/18 08:01 White Blood Count 9.0 K/UL (4.8-10.8) Red Blood Count 4.19 M/UL (4.70-6.10) L Hemoglobin 11.6 G/DL (14.2-18.0) L Hematocrit 36.4 % (42.0-52.0) L Mean Corpuscular Volume 87 FL (80-99) Mean Corpuscular Hemoglobin 27.8 PG (27.0-31.0) Mean Corpuscular Hemoglobin Concent 32.0 G/DL (32.0-36.0) Red Cell Distribution Width 14.6 % (11.6-14.8) Platelet Count 177 K/UL (150-450) Mean Platelet Volume 6.5 FL (6.5-10.1) Neutrophils (%) (Auto) 77.8 % (45.0-75.0) H Lymphocytes (%) (Auto) 12.5 % (20.0-45.0) L Monocytes (%) (Auto) 7.3 % (1.0-10.0) Eosinophils (%) (Auto) 1.5 % (0.0-3.0) Basophils (%) (Auto) 0.8 % (0.0-2.0) Sodium Level 142 MMOL/L (136-145) Potassium Level 3.7 MMOL/L (3.5-5.1) Chloride Level 109 MMOL/L (98-107) H Carbon Dioxide Level 22 MMOL/L (21-32) Anion Gap 11 mmol/L (5-15) Blood Urea Nitrogen 24 mg/dL (7-18) H Creatinine 1.1 MG/DL (0.55-1.30) Estimat Glomerular Filtration Rate mL/min (>60) Glucose Level 75 MG/DL (74-106) Calcium Level 8.5 MG/DL (8.5-10.1) Total Bilirubin 0.5 MG/DL (0.2-1.0) Aspartate Amino Transf (AST/SGOT) 20 U/L (15-37) Alanine Aminotransferase (ALT/SGPT) 17 U/L (12-78) Alkaline Phosphatase 77 U/L (46-116) Total Protein 6.2 G/DL (6.4-8.2) L Albumin 2.1 G/DL (3.4-5.0) L Globulin 4.1 g/dL Albumin/Globulin Ratio 0.5 (1.0-2.7) L Vancomycin Level Trough 11.8 ug/mL (5.0-12.0) Messi Patel MD Aug 05, 2018 12:17
--- NOTE | 2018-08-05 14:00 | NUR ---
NURSE NOTES: Patient turned and repositioned. VSS. No distress noted.
--- NOTE | 2018-08-05 14:33 | Diagnostic Imaging Report ---
Indication: Abnormal renal function tests, history of right renal mass, history of chronic kidney disease Technique: Grayscale and duplex images of the kidneys, retroperitoneum, and bladder were obtained. Comparison: Renal ultrasound dated 03/31/2018, abdomen pelvis CT scan dated 03/28/2018 Findings: Right kidney measures 12.6 cm in length. Left kidney measures 12.1 cm in length. Both kidneys demonstrate normal echogenicity. No hydronephrosis. 6 both kidneys demonstrate multiple cysts. No solid lesions could be demonstrated, including the lower pole solid lesion demonstrated on the prior ultrasound. However, patient is in the ICU and intubated, so optimal positioning could not be accomplished. Normal inferior vena cava. Bladder is empty, contains a Park catheter. Impression: Negative for hydronephrosis Bilateral renal cysts demonstrated. No definite solid mass demonstrated, despite evidence of at least one and possibly more solid masses on prior CT and ultrasound. However, imaging is suboptimal due to inability to position the patient optimally, and repeat scanning once patient is extubated and more fully mobile is recommended.
--- NOTE | 2018-08-05 16:00 | NUR ---
NURSE NOTES: Patient turned and repositioned. no new orders at this time. patient stable. VSS. will continue plan of care.
--- NOTE | 2018-08-05 17:34 | Infectious Diseases Prog Note ---
Assessment/Plan Problems: (1) LLL pneumonia Assessment & Plan: suspect aspiration, await sputum culture and continue meropenem with vancomycin empirically . aspiration precaution (2) Left arm cellulitis Assessment & Plan: suspect strep and staph related, complicated with blisters, already on wide spectrum antibiotics , keep arm elevated while in bed, venous doppler is negative for DVT (3) Sepsis Assessment & Plan: due to the above, with [employer] , source? left hand cellulitis VS pneumonia VS sacral pressure wound , already on vancomycin and meropenem, pending final blood cultures . ECHO showed no valve vegetations (4) CKD (chronic kidney disease) Assessment & Plan: continue hydration and renally dosed meds as per pharmacy (5) Renal mass, right Assessment & Plan: poor candidate for surgery (6) Encephalopathy Assessment & Plan: suspect metabolic due to the above, continue hydration with antibiotics , avoid sedatives (7) Acute respiratory failure Assessment & Plan: due to the above , intubated on mechanical ventilation, monitor ABG, and CXR , pulmonary is following Subjective ROS Limited/Unobtainable: Yes Allergies: Coded Allergies: MORPHINE (Verified Allergy, Unknown, 03/25/18) PENICILLINS (Verified Allergy, Unknown, 03/05/18) Subjective He was awake and responsive , still intubated on mechanical ventilation , afebrile. with blisters in his left hand Objective Vital Signs Last 24 Hour Vital Signs Date Time Temp Pulse Resp B/P (MAP) Pulse Ox O2 Delivery O2 Flow Rate FiO2 08/05/18 17:00 97.6 79 21 147/88 (107) 96 08/05/18 16:34 85 20 08/05/18 16:00 30 08/05/18 16:00 86 18 140/82 (101) 96 08/05/18 16:00 83 08/05/18 16:00 Mechanical Ventilator Mechanical Ventilator 08/05/18 15:00 90 18 136/87 (103) 96 08/05/18 14:39 77 19 08/05/18 14:00 84 19 146/85 (105) 98 08/05/18 13:10 85 20 99 Mechanical Ventilator 30 08/05/18 13:10 91 20 08/05/18 13:02 83 20 97 Mechanical Ventilator 30 08/05/18 13:00 98.8 92 17 142/82 (102) 99 08/05/18 12:00 Mechanical Ventilator Mechanical Ventilator 08/05/18 12:00 30 08/05/18 12:00 94 17 148/86 (106) 99 08/05/18 12:00 96 08/05/18 11:00 90 17 148/80 (102) 98 08/05/18 10:41 101 18 08/05/18 10:00 95 17 154/85 (108) 98 08/05/18 09:59 91 159/88 08/05/18 09:04 95 18 30 08/05/18 09:03 98 08/05/18 09:00 98.7 98 17 159/88 (111) 98 08/05/18 08:00 96 17 157/88 (111) 98 08/05/18 08:00 97 08/05/18 08:00 Mechanical Ventilator Mechanical Ventilator 08/05/18 08:00 30 08/05/18 07:20 87 18 100 Mechanical Ventilator 30 08/05/18 07:15 90 16 30 08/05/18 07:14 99 16 98 Mechanical Ventilator 30 08/05/18 07:00 87 18 159/91 (113) 98 08/05/18 06:00 80 18 152/82 (105) 98 08/05/18 05:04 84 19 30 08/05/18 05:00 98.2 85 18 155/81 (105) 98 08/05/18 04:08 30 08/05/18 04:00 79 08/05/18 04:00 Mechanical Ventilator Mechanical Ventilator 08/05/18 04:00 89 17 143/91 (108) 100 08/05/18 03:11 96 22 30 08/05/18 03:00 91 17 149/77 (101) 99 08/05/18 02:00 84 19 148/87 (107) 97 08/05/18 01:34 80 18 100 Mechanical Ventilator 35 08/05/18 01:25 79 19 35 08/05/18 01:24 40 08/05/18 01:24 78 23 100 Mechanical Ventilator 35 08/05/18 01:00 77 18 140/80 (100) 100 08/05/18 00:00 30 08/05/18 00:00 Mechanical Ventilator Mechanical Ventilator 08/05/18 00:00 98.0 79 16 140/80 (100) 100 08/05/18 00:00 79 15 149/80 (103) 100 08/04/18 23:22 79 19 40 08/04/18 23:00 79 16 136/82 (100) 100 08/04/18 22:00 79 16 138/73 (94) 100 08/04/18 21:11 89 21 40 08/04/18 21:00 76 17 118/79 (92) 99 08/04/18 20:00 Mechanical Ventilator Mechanical Ventilator 08/04/18 20:00 76 08/04/18 20:00 40 08/04/18 20:00 98.4 80 16 116/77 (90) 99 08/04/18 19:23 79 18 100 Mechanical Ventilator 40 08/04/18 19:14 74 20 40 08/04/18 19:13 40 08/04/18 19:13 72 22 99 Mechanical Ventilator 40 08/04/18 19:00 77 16 134/75 (94) 99 08/04/18 18:00 72 16 133/72 (92) 99 Height (Feet): 5 Height (Inches): 6.00 Weight (Pounds): 220 General Appearance: WD/WN, no acute distress HEENT: normocephalic, atraumatic, anicteric, mucous membranes moist, PERRL, EOMI, supple, no JVD Respiratory/Chest: chest wall non-tender, no respiratory distress, no accessory muscle use, decreased breath sounds, crackles/rales Cardiovascular: normal peripheral pulses, normal rate, regular rhythm, no gallop/murmur, no JVD Abdomen: normal bowel sounds, soft, non tender, no organomegaly, non distended , no mass, no scars Genitourinary: normal external genitalia Extremities: no cyanosis, no clubbing Skin: no rash, no lesions, no ulcers Neurologic/Psychiatric: coke oven mason II-XII grossly normal, alert, responsive Lymphatic: no neck adenopathy, no groin adenopathy Musculoskeletal: normal muscle bulk, no effusion Microbiology Date/Time Source Procedure Growth Status 08/03/18 02:30 Sputum Gram Stain - Final Complete 08/03/18 02:30 Sputum Sputum Culture - Final NORMAL UPPER RESPIRATORY JOHN PRESENT Complete 08/03/18 02:30 Indwelling Cath Urine Culture - Final NO GROWTH AFTER 48 HOURS Complete Laboratory Tests Test 08/05/18 08:01 White Blood Count 9.0 K/UL (4.8-10.8) Red Blood Count 4.19 M/UL (4.70-6.10) L Hemoglobin 11.6 G/DL (14.2-18.0) L Hematocrit 36.4 % (42.0-52.0) L Mean Corpuscular Volume 87 FL (80-99) Mean Corpuscular Hemoglobin 27.8 PG (27.0-31.0) Mean Corpuscular Hemoglobin Concent 32.0 G/DL (32.0-36.0) Red Cell Distribution Width 14.6 % (11.6-14.8) Platelet Count 177 K/UL (150-450) Mean Platelet Volume 6.5 FL (6.5-10.1) Neutrophils (%) (Auto) 77.8 % (45.0-75.0) H Lymphocytes (%) (Auto) 12.5 % (20.0-45.0) L Monocytes (%) (Auto) 7.3 % (1.0-10.0) Eosinophils (%) (Auto) 1.5 % (0.0-3.0) Basophils (%) (Auto) 0.8 % (0.0-2.0) Sodium Level 142 MMOL/L (136-145) Potassium Level 3.7 MMOL/L (3.5-5.1) Chloride Level 109 MMOL/L (98-107) H Carbon Dioxide Level 22 MMOL/L (21-32) Anion Gap 11 mmol/L (5-15) Blood Urea Nitrogen 24 mg/dL (7-18) H Creatinine 1.1 MG/DL (0.55-1.30) Estimat Glomerular Filtration Rate mL/min (>60) Glucose Level 75 MG/DL (74-106) Calcium Level 8.5 MG/DL (8.5-10.1) Total Bilirubin 0.5 MG/DL (0.2-1.0) Aspartate Amino Transf (AST/SGOT) 20 U/L (15-37) Alanine Aminotransferase (ALT/SGPT) 17 U/L (12-78) Alkaline Phosphatase 77 U/L (46-116) Total Protein 6.2 G/DL (6.4-8.2) L Albumin 2.1 G/DL (3.4-5.0) L Globulin 4.1 g/dL Albumin/Globulin Ratio 0.5 (1.0-2.7) L Vancomycin Level Trough 11.8 ug/mL (5.0-12.0) Current Medications Medications (Trade) Dose Ordered Sig/Colin Route PRN Reason Start Time Stop Time Status Last Admin Dose Admin Acetaminophen (Tylenol) 650 mg Q6H PRN ORAL Mild Pain/Temp > 100.5 08/02/18 13:00 09/01/18 12:59 Albuterol/ Ipratropium (Albuterol/ Ipratropium) 3 ml Q4H PRN HHN Shortness of Breath 08/02/18 13:00 08/07/18 12:59 Albuterol/ Ipratropium (Albuterol/ Ipratropium) 3 ml Q6HRT HHN 08/02/18 13:00 08/07/18 12:59 08/05/18 13:02 Atorvastatin Calcium (Lipitor) 20 mg BEDTIME ORAL 08/03/18 21:00 09/02/18 20:59 08/04/18 22:07 Carbidopa/Levodopa (Sinemet 25/100) 1 tab THREE TIMES A DAY ORAL 08/03/18 18:00 09/02/18 17:59 08/05/18 14:31 Diltiazem HCl (Cardizem CD) 240 mg DAILY ORAL 08/03/18 10:00 09/02/18 09:59 08/05/18 09:59 Gabapentin (Neurontin) 100 mg QHS ORAL 08/03/18 21:00 09/02/18 20:59 08/04/18 22:08 Heparin Sodium (Porcine) (Heparin 5000 units/ml) 5,000 units EVERY 12 HOURS SUBQ 08/05/18 21:00 09/04/18 20:59 Lorazepam (Ativan 2mg/ml 1ml) 1 mg Q4H PRN IV For Anxiety 08/02/18 13:46 08/09/18 13:45 Meropenem 1 gm/ Sodium Chloride 110 ml @ 220 mls/hr Q8HR IVPB 08/05/18 11:00 08/10/18 10:59 08/05/18 10:00 Ondansetron HCl (Zofran) 4 mg Q6H PRN IVP Nausea & Vomiting 08/02/18 13:00 5/12/19 12:59 Pantoprazole (Protonix) 40 mg DAILY IVP 08/03/18 09:00 09/02/18 08:59 08/05/18 09:58 Sodium Chloride 1,000 ml @ 50 mls/hr Q20H IV 08/05/18 12:38 09/04/18 12:37 08/05/18 12:45 Tamsulosin HCl (Flomax) 0.4 mg BEDTIME ORAL 08/03/18 21:00 09/02/18 20:59 08/04/18 22:07 Vancomycin HCl (Vanco rx to dose) 1 ea DAILY PRN MISC Per rx protocol 08/02/18 10:45 09/01/18 10:44 Vancomycin HCl 750 mg/Sodium Chloride 275 ml @ 183.333 mls/hr Q12HR@1100,2300 IVPB 08/05/18 11:00 08/10/18 10:59 08/05/18 11:00 Venlafaxine HCl (Effexor-XR) 37.5 mg DAILY ORAL 08/04/18 09:00 09/03/18 08:59 08/05/18 09:59 Vitamin B Complex/ Vit C/Folic Acid (Nephrovite) 1 tab DAILY ORAL 08/04/18 09:00 09/03/18 08:59 08/05/18 09:59 Srini Sam M.D. Aug 05, 2018 17:34
--- NOTE | 2018-08-05 18:00 | NUR ---
NURSE NOTES: Patient stable. VSS. Remains on cpap PS 8 no distress noted. Will continue plan of care.
--- NOTE | 2018-08-05 19:14 | NUR ---
HAND-OFF: Report given to Mallika RN using SBAR. VSS. NO distress ntoed.
--- NOTE | 2018-08-05 20:00 | NUR ---
NURSE NOTES: pt orally intubated -vent on c-pap 3o o/o fio2 p-5 sp 8 no acute rep distress iv infusing well site good reposition and suction-
--- NOTE | 2018-08-05 20:15 | NUR ---
CASE MANAGEMENT: REVIEW SI: SEPSIS . ENCEPHALOPATHY . LLL PNEUMONIA T 97.6 HR 79 RR 23 BP 147/88 SAT 96% MECH VENT FIO2 30 H/H 11.6/36.4 IS: NS IVF MEROPENEM IV Q8HR VANCO IV CARDIZEM PO QD ICU STATUS DCP: PATIENT IS FROM [facility]
[2018-08-05] MEDS: Tamsulosin 0.4mg cap ORAL SCH (21:12)
[2018-08-05] MEDS: Atorvastatin 20mg tab ORAL SCH (21:12)
[2018-08-05] MEDS: Heparin 5000 units/ml inj SUBQ SCH (21:14)
--- NOTE | 2018-08-05 22:00 | NUR ---
NURSE NOTES: reposition and suction condition unchanged
[2018-08-06] VITALS (25 sets, daily range): BP systolic 135–183; BP diastolic 80–115
--- NOTE | 2018-08-06 | NUR ---
NURSE NOTES: reposition and suction no acute distress noted
[2018-08-06] MEDS: Albuterol/Ipratropium 3ml neb HHN SCH ×4 (01:34→19:58)
--- NOTE | 2018-08-06 02:00 | NUR ---
NURSE NOTES: reposition and suction no acute resp distress noted
--- NOTE | 2018-08-06 04:00 | NUR ---
NURSE NOTES: comp bed bath oral care and wound care done reposition and suction:
[2018-08-06] MEDS: Meropenem 1gm/NS 110ml IVPB SCH ×4 (05:25→13:59)
--- NOTE | 2018-08-06 06:00 | NUR ---
NURSE NOTES: had 2 bm large soft bm no distress noted
--- NOTE | 2018-08-06 07:00 | NUR ---
RESPIRATORY NOTE: Received Patient on Vent PS +8, PEEP +5, Fio2 30%. Patient is intubated with a 7.5 ETT with a 25cm lip line, secured with anchorfast. Diminished/ rhonchi breath sounds heard bilaterally throughout both lung morales. Patient is alert and awake. Vent plugged into red outlet. Alarms on and audible. Will continue to monitor throughout the day.
--- NOTE | 2018-08-06 07:30 | NUR ---
HAND-OFF: Report given to marjorie lord.using sbar
--- NOTE | 2018-08-06 07:35 | NUR ---
NURSE NOTES: Received report from Mallika ORTEGA. pt in bed, opens eyes to name sluggish 3mm. on monitor afib. ETTube intubated 7.5/23 cm @ lipline. CPAP 500 Fio2 30% pressure support 5, Peep of 5. Thick sputum suctioned with maurice specks noted. Patient currently NPO, GTUBE clamped. Park draining yellow urine. skin-see assessment. Rt forearm 20 leaking and infiltrated LT hand 20G, with NS at 50 cc/hr. Patient in no distress at this time. VSS. Will continue to monitor patient. Bed alarm on, call light within reach, HOB elevated. will continue to monitor pt.
[2018-08-06 08:13] LABS: BASOPHILS % (AUTO) 0.9 % (0.0-2.0); EOSINOPHILS % (AUTO) 1.3 % (0.0-3.0); HEMATOCRIT 36.5 % (42.0-52.0); HEMOGLOBIN 11.6 G/DL (14.2-18.0); LYMPHOCYTES % (AUTO) 10.5 % (20.0-45.0); MEAN CORPUSCULAR VOLUME 88 FL (80-99); NEUTROPHILS % (AUTO) 79.2 % (45.0-75.0); PLATELET COUNT 201 K/UL (150-450); RED BLOOD COUNT 4.17 M/UL (4.70-6.10); RED CELL DISTRIBUTION WIDTH 14.4 % (11.6-14.8); WHITE BLOOD COUNT 8.9 K/UL (4.8-10.8)
[2018-08-06 08:23] LABS: ANION GAP 14 mmol/L (5-15); BLOOD UREA NITROGEN 23 mg/dL (7-18); CALCIUM 8.6 MG/DL (8.5-10.1); CARBON DIOXIDE 20 MMOL/L (21-32); CHLORIDE 107 MMOL/L (98-107); POTASSIUM 3.6 MMOL/L (3.5-5.1); SODIUM 141 MMOL/L (136-145)
--- NOTE | 2018-08-06 08:50 | NUR ---
NURSE NOTES: MD Patel here to see pt. placed order to extubate today. wanted to check with family about DNI status. called [facility] and left message to call back regarding DNI status. Addendum: 08/06/18 at 1249 by Jocelynn Pop RN CALLED MARIE VALDEZ
--- NOTE | 2018-08-06 08:50 | Pulmonolgy Critical Care Note ---
Critical Care - Asmt/Plan Problems: (1) Sepsis (2) Respiratory failure, acute (3) Airway intubation performed without difficulty (4) LLL pneumonia (5) Left arm cellulitis (6) STUART (acute kidney injury) (7) CKD (chronic kidney disease) (8) Dementia (9) Leukocytosis (10) FTT (failure to thrive) in adult (11) Afib Respiratory: monitor respiratory rate, other - EXTUBATE, HHN's Cardiac: continue to monitor HR/BP, other - No A/C 2/2 GIB Renal: F/U I&O, check electrolytes Infectious Disease: continue antibiotics - JOHN PER ID Gastrointestinal: start feedings - post extubation Endocrine: monitor blood sugar Hematologic: monitor H/H Neurologic: keep patient comfortable Prophylaxis: Protonix, Heparin - SQ Disposition: keep in ICU Time Spent (Minutes): 30 Notes Reviewed: commissions specialist, cardio, other - DNAR Discussed with: nurses, consultants Critical Care - Objective Last 24 Hour Vital Signs Date Time Temp Pulse Resp B/P (MAP) Pulse Ox O2 Delivery O2 Flow Rate FiO2 08/06/18 07:08 101 22 100 Mechanical Ventilator 30 08/06/18 07:00 97 22 30 08/06/18 07:00 100 16 97 Mechanical Ventilator 30 08/06/18 06:00 88 18 166/90 (115) 99 08/06/18 05:27 88 18 170/100 (123) 99 08/06/18 05:00 90 19 160/80 (106) 98 08/06/18 04:57 84 19 08/06/18 04:00 Mechanical Ventilator Mechanical Ventilator 08/06/18 04:00 30 08/06/18 04:00 97.8 89 21 140/80 (100) 98 08/06/18 04:00 90 08/06/18 03:00 85 18 139/84 (102) 98 08/06/18 02:58 87 18 08/06/18 02:00 85 18 141/91 (108) 98 08/06/18 01:42 79 15 100 Mechanical Ventilator 30 08/06/18 01:30 84 20 98 Mechanical Ventilator 30 08/06/18 01:29 82 20 08/06/18 01:00 Mechanical Ventilator Mechanical Ventilator 08/06/18 01:00 30 08/06/18 01:00 81 19 158/92 (114) 98 08/06/18 00:00 79 19 135/90 (105) 98 08/06/18 00:00 100 08/05/18 23:00 79 19 158/93 (114) 98 08/05/18 22:51 89 21 08/05/18 22:00 84 19 148/87 (107) 97 08/05/18 21:20 94 25 08/05/18 21:00 87 20 154/81 (105) 97 08/05/18 20:00 97.4 88 21 147/84 (105) 96 08/05/18 20:00 92 08/05/18 20:00 30 08/05/18 20:00 Mechanical Ventilator Mechanical Ventilator 08/05/18 19:30 90 21 100 Mechanical Ventilator 30 08/05/18 19:21 80 19 96 Mechanical Ventilator 30 08/05/18 19:20 87 19 08/05/18 18:59 93 23 160/97 (118) 96 08/05/18 18:00 79 23 167/98 (121) 96 08/05/18 17:00 97.6 79 21 147/88 (107) 96 08/05/18 16:34 85 20 08/05/18 16:00 30 08/05/18 16:00 86 18 140/82 (101) 96 08/05/18 16:00 83 08/05/18 16:00 Mechanical Ventilator Mechanical Ventilator 08/05/18 15:00 90 18 136/87 (103) 96 08/05/18 14:39 77 19 08/05/18 14:00 84 19 146/85 (105) 98 08/05/18 13:10 85 20 99 Mechanical Ventilator 30 08/05/18 13:10 91 20 08/05/18 13:02 83 20 97 Mechanical Ventilator 30 08/05/18 13:00 98.8 92 17 142/82 (102) 99 08/05/18 12:00 Mechanical Ventilator Mechanical Ventilator 08/05/18 12:00 30 08/05/18 12:00 94 17 148/86 (106) 99 08/05/18 12:00 96 08/05/18 11:00 90 17 148/80 (102) 98 08/05/18 10:41 101 18 08/05/18 10:00 95 17 154/85 (108) 98 08/05/18 09:59 91 159/88 08/05/18 09:04 95 18 30 08/05/18 09:03 98 08/05/18 09:00 98.7 98 17 159/88 (111) 98 Status: awake, other - intubated Condition: improving HEENT: atraumatic, normocephalic Lungs: clear Heart: HR/BP stable, irregular Abdomen: soft, non-tender, active bowel sounds Extremities: no C/C/E Blood Sugars: BS controlled Critical Care - Subjective ROS Limited/Unobtainable: Yes ICU Day: 5 Intubation Day: 5 Interval Events: Cash CPAP awake no distress Condition: improving IV Access: peripheral EKG Rhythm: Atrial Fibrillation FI02: 30 Vent Support Breath Rate: 16 Vent Support Mode: CPAP Sputum Amount: Small PEEP: 5.0 PIP: 14 Fluids: NS@50 I&O: Intake and Output 08/05/18 08/06/18 19:00 07:00 Intake Total 726.666 ml 1045 ml Output Total 780 ml 660 ml Balance -53.334 ml 385 ml Intake Oral 0 ml 0 ml IV Total 726.666 ml 1045 ml Output Urine Total 780 ml 660 ml # Bowel Movements 1 Subjective: SABRINA ET-Tube: 7.5 ET Position: 25 Labs: Laboratory Tests Test 08/06/18 08:02 White Blood Count 8.9 K/UL (4.8-10.8) Red Blood Count 4.17 M/UL (4.70-6.10) L Hemoglobin 11.6 G/DL (14.2-18.0) L Hematocrit 36.5 % (42.0-52.0) L Mean Corpuscular Volume 88 FL (80-99) Mean Corpuscular Hemoglobin 27.9 PG (27.0-31.0) Mean Corpuscular Hemoglobin Concent 31.8 G/DL (32.0-36.0) L Red Cell Distribution Width 14.4 % (11.6-14.8) Platelet Count 201 K/UL (150-450) Mean Platelet Volume 6.3 FL (6.5-10.1) L Neutrophils (%) (Auto) 79.2 % (45.0-75.0) H Lymphocytes (%) (Auto) 10.5 % (20.0-45.0) L Monocytes (%) (Auto) 8.0 % (1.0-10.0) Eosinophils (%) (Auto) 1.3 % (0.0-3.0) Basophils (%) (Auto) 0.9 % (0.0-2.0) Sodium Level 141 MMOL/L (136-145) Potassium Level 3.6 MMOL/L (3.5-5.1) Chloride Level 107 MMOL/L (98-107) Carbon Dioxide Level 20 MMOL/L (21-32) L Anion Gap 14 mmol/L (5-15) Blood Urea Nitrogen 23 mg/dL (7-18) H Creatinine 1.0 MG/DL (0.55-1.30) Estimat Glomerular Filtration Rate mL/min (>60) Glucose Level 65 MG/DL (74-106) L Calcium Level 8.6 MG/DL (8.5-10.1) Messi Patel MD Aug 06, 2018 08:50
--- NOTE | 2018-08-06 08:56 | General Progress Note ---
Assessment/Plan Status: stable Assessment: 1. Acute Respiratory failure - intubated and still in ICU. extubation for today. Pulm following. will start tube feeding after extubation. 2. Asp Pneumonia Cont IV ABX per ID. improved. follow cultures. 3. sepsis - Cont IV ABX meripenem and Vanco per ID. improved. follow cultures. 4. Chronic A fib - rate controlled - rn ostomy is following. 5. Parkinson dementia - cont home meds. 6. Chronic Lt leg Popliteal thrombosis - off anticoagulation due to high risk of bleeding and previous hx of GI bleeding. 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 7. Chronic kidney disease - stable. 8. Hx of renal mass - family refused the work up last admission. currently DNR. 9. Hx of CVA with one sided hemiplegia 10. Depression - cont home meds. 11. Neuropathy - stable. 12. Hyperlipidemia - cont home med. Subjective Date patient seen: Aug 06, 2018 Time patient seen: 08:40 Constitutional: Reports: weakness HEENT: Reports: no symptoms Cardiovascular: Reports: irregular heart rate Respiratory: Reports: no symptoms Gastrointestinal/Abdominal: Reports: no symptoms Genitourinary: Reports: no symptoms Neurologic/Psychiatric: Reports: no symptoms Endocrine: Reports: no symptoms Hematologic/Lymphatic: Reports: no symptoms Allergies: Coded Allergies: MORPHINE (Verified Allergy, Unknown, 03/25/18) PENICILLINS (Verified Allergy, Unknown, 03/05/18) Subjective Today, he is doing better. His WBC improved. Extubation for today. Intubated and in ICU currently. Objective Last 24 Hour Vital Signs Date Time Temp Pulse Resp B/P (MAP) Pulse Ox O2 Delivery O2 Flow Rate FiO2 08/06/18 07:08 101 22 100 Mechanical Ventilator 30 08/06/18 07:00 97 22 30 08/06/18 07:00 100 16 97 Mechanical Ventilator 30 08/06/18 06:00 88 18 166/90 (115) 99 08/06/18 05:27 88 18 170/100 (123) 99 08/06/18 05:00 90 19 160/80 (106) 98 08/06/18 04:57 84 19 08/06/18 04:00 Mechanical Ventilator Mechanical Ventilator 08/06/18 04:00 30 08/06/18 04:00 97.8 89 21 140/80 (100) 98 08/06/18 04:00 90 4/16/19 03:00 85 18 139/84 (102) 98 08/06/18 02:58 87 18 08/06/18 02:00 85 18 141/91 (108) 98 08/06/18 01:42 79 15 100 Mechanical Ventilator 30 08/06/18 01:30 84 20 98 Mechanical Ventilator 30 08/06/18 01:29 82 20 08/06/18 01:00 Mechanical Ventilator Mechanical Ventilator 08/06/18 01:00 30 08/06/18 01:00 81 19 158/92 (114) 98 08/06/18 00:00 79 19 135/90 (105) 98 08/06/18 00:00 100 08/05/18 23:00 79 19 158/93 (114) 98 08/05/18 22:51 89 21 08/05/18 22:00 84 19 148/87 (107) 97 08/05/18 21:20 94 25 08/05/18 21:00 87 20 154/81 (105) 97 08/05/18 20:00 97.4 88 21 147/84 (105) 96 08/05/18 20:00 92 08/05/18 20:00 30 08/05/18 20:00 Mechanical Ventilator Mechanical Ventilator 08/05/18 19:30 90 21 100 Mechanical Ventilator 30 08/05/18 19:21 80 19 96 Mechanical Ventilator 30 08/05/18 19:20 87 19 08/05/18 18:59 93 23 160/97 (118) 96 08/05/18 18:00 79 23 167/98 (121) 96 08/05/18 17:00 97.6 79 21 147/88 (107) 96 08/05/18 16:34 85 20 08/05/18 16:00 30 08/05/18 16:00 86 18 140/82 (101) 96 08/05/18 16:00 83 08/05/18 16:00 Mechanical Ventilator Mechanical Ventilator 08/05/18 15:00 90 18 136/87 (103) 96 08/05/18 14:39 77 19 08/05/18 14:00 84 19 146/85 (105) 98 08/05/18 13:10 85 20 99 Mechanical Ventilator 30 08/05/18 13:10 91 20 08/05/18 13:02 83 20 97 Mechanical Ventilator 30 08/05/18 13:00 98.8 92 17 142/82 (102) 99 08/05/18 12:00 Mechanical Ventilator Mechanical Ventilator 08/05/18 12:00 30 08/05/18 12:00 94 17 148/86 (106) 99 08/05/18 12:00 96 08/05/18 11:00 90 17 148/80 (102) 98 08/05/18 10:41 101 18 08/05/18 10:00 95 17 154/85 (108) 98 08/05/18 09:59 91 159/88 08/05/18 09:04 95 18 30 08/05/18 09:03 98 08/05/18 09:00 98.7 98 17 159/88 (111) 98 Intake and Output 08/05/18 08/06/18 19:00 07:00 Intake Total 726.666 ml 1045 ml Output Total 780 ml 660 ml Balance -53.334 ml 385 ml Intake Oral 0 ml 0 ml IV Total 726.666 ml 1045 ml Output Urine Total 780 ml 660 ml # Bowel Movements 1 Laboratory Tests 08/06/18 08:02: White Blood Count 8.9, Red Blood Count 4.17L, Hemoglobin 11.6L, Hematocrit 36.5L , Mean Corpuscular Volume 88, Mean Corpuscular Hemoglobin 27.9, Mean Corpuscular Hemoglobin Concent 31.8L, Red Cell Distribution Width 14.4, Platelet Count 201, Mean Platelet Volume 6.3L, Neutrophils (%) (Auto) 79.2H, Lymphocytes (%) (Auto) 10.5L, Monocytes (%) (Auto) 8.0, Eosinophils (%) (Auto) 1.3, Basophils (%) (Auto) 0.9, Sodium Level 141, Potassium Level 3.6, Chloride Level 107, Carbon Dioxide Level 20L, Anion Gap 14, Blood Urea Nitrogen 23H, Creatinine 1.0, Estimat Glomerular Filtration Rate , Glucose Level 65L, Calcium Level 8.6 Height (Feet): 5 Height (Inches): 6.00 Weight (Pounds): 223 General Appearance: no apparent distress, alert EENT: normal ENT inspection Neck: non-tender, supple Cardiovascular: normal rate, regular rhythm Respiratory/Chest: lungs clear, normal breath sounds Abdomen: normal bowel sounds, non tender, soft Extremities: normal range of motion, non-tender Edema: no edema noted Arm (L), no edema noted Arm (R), no edema noted Leg (L), no edema noted Leg (R), no edema noted Pedal (L), no edema noted Pedal (R), no edema noted Generalized Neurologic: no motor/sensory deficits, alert, responsive Skin: warm/dry Lymphatic: normal anterior cervical (L), normal anterior cervical (R), normal posterior cervical (L), normal posterior cervical (R), normal submandibular (L) , normal submandibular (R), normal supraclavicular (L), normal supraclavicular ( R), normal axillary (L), normal axillary (R), normal inguinal (L), normal inguinal (R), normal other Shelby Arrington MD Aug 06, 2018 08:56
[2018-08-06] MEDS: Heparin 5000 units/ml inj SUBQ SCH ×2 (09:00→20:41)
--- NOTE | 2018-08-06 09:00 | NUR ---
NURSE NOTES: held heparin 5,000 units SubCut today. per R.T suctioned bright red secretions this am. will continue to monitor for bleeding.
[2018-08-06] MEDS ORDERED: D5 1/2NS 1000ml IV ONE (09:27)
[2018-08-06] MEDS: Nephrovite tab (Rena-Vite) ORAL SCH (09:50)
[2018-08-06] MEDS: Venlafaxine XR 37.5mg cap ORAL SCH (09:50)
[2018-08-06] MEDS: Pantoprazole Inj IVP SCH (09:50)
[2018-08-06] MEDS: dilTIAZem HCl CD 240mg cap ORAL SCH (09:51)
[2018-08-06] MEDS: Levodopa/Carbidopa 25/100 tab ORAL SCH ×3 (09:51→18:15)
[2018-08-06] MEDS: Vancomycin 750mg/NS 275ml IVPB SCH ×2 (11:39)
--- NOTE | 2018-08-06 12:25 | NUR ---
NURSE NOTES: MD Patel here to see pt. placed order to extubate today. wanted to check with family about DNI status. Addendum: 08/06/18 at 1226 by Jocelynn Pop RN wrong time
--- NOTE | 2018-08-06 12:49 | NUR ---
NURSE NOTES: RECEIVED CALL BACK FROM MARIE Ndiaye WAS EXPECTING CALL BACK FROM YESTERDAY , BUT NEVER RECEIVED ONE. CONTACT NUMBER [phone] FAMILY IS OK WITH DNR STATUS, PER FAMILY IF PT IS EXTUBATED AND NEEDS REINTUBATION, PERMISSION GIVEN TO ASSIST BREATHING. CHARGE NURSE AWARE.
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
--- NOTE | 2018-08-06 16:20 | NUR ---
NURSE NOTES: pt extubated, placed on 4lL NC. sating 98-100% . bp 152/95 hr 106. no c/o pain. remains in restraints, pt continues to be physically aggressive to staff. will continue to monitor pt closely.
--- NOTE | 2018-08-06 17:24 | Infectious Diseases Prog Note ---
Assessment/Plan Problems: (1) LLL pneumonia Assessment & Plan: suspect aspiration, await sputum culture , will switch meropenem and vancomycin empirically to zyvox and ceftriaxone . aspiration precaution (2) Left arm cellulitis Assessment & Plan: suspect strep and staph related, complicated with blisters, already on wide spectrum antibiotics , keep arm elevated while in bed, venous doppler is negative for DVT (3) Sepsis Assessment & Plan: due to the above, with STAPH EPIDERMIDIS and STREP GROUP A , source? left hand cellulitis VS pneumonia VS sacral pressure wound , will switch vancomycin and meropenem to zyvox and ceftriaxone for two weeks . ECHO showed no valve vegetations . repeat blood culture to confirm clearance (4) CKD (chronic kidney disease) Assessment & Plan: continue hydration and renally dosed meds as per pharmacy (5) Renal mass, right Assessment & Plan: poor candidate for surgery (6) Encephalopathy Assessment & Plan: suspect metabolic due to the above, continue hydration with antibiotics , avoid sedatives (7) Acute respiratory failure Assessment & Plan: due to the above , intubated on mechanical ventilation, monitor ABG, and CXR , pulmonary is following Subjective ROS Limited/Unobtainable: Yes Allergies: Coded Allergies: MORPHINE (Verified Allergy, Unknown, 03/25/18) PENICILLINS (Verified Allergy, Unknown, 03/05/18) Subjective He was awake and responsive , still intubated on mechanical ventilation , afebrile. with blisters in his left hand Objective Vital Signs Last 24 Hour Vital Signs Date Time Temp Pulse Resp B/P (MAP) Pulse Ox O2 Delivery O2 Flow Rate FiO2 08/06/18 16:23 Nasal Cannula 4.0 36 08/06/18 16:20 4.0 08/06/18 16:00 98.9 90 15 152/95 (114) 100 08/06/18 16:00 Mechanical Ventilator Mechanical Ventilator 08/06/18 16:00 96 08/06/18 16:00 30 08/06/18 15:09 89 17 30 08/06/18 15:00 94 17 156/83 (107) 99 08/06/18 14:00 103 17 145/90 (108) 99 08/06/18 13:03 85 14 100 Mechanical Ventilator 30 08/06/18 13:00 90 16 183/109 (133) 100 08/06/18 12:54 97 17 30 08/06/18 12:54 97 15 100 Mechanical Ventilator 30 08/06/18 12:00 Mechanical Ventilator Mechanical Ventilator 08/06/18 12:00 99.1 88 16 150/91 (110) 100 08/06/18 12:00 30 08/06/18 12:00 88 08/06/18 11:00 91 16 149/93 (111) 98 08/06/18 10:55 85 16 30 08/06/18 10:00 94 19 160/109 (126) 99 08/06/18 09:51 102 173/115 08/06/18 09:02 100 19 30 08/06/18 09:00 100 19 173/115 (134) 100 08/06/18 08:00 30 08/06/18 08:00 93 17 161/92 (115) 97 08/06/18 08:00 97 08/06/18 08:00 Mechanical Ventilator Mechanical Ventilator 08/06/18 07:08 101 22 100 Mechanical Ventilator 30 08/06/18 07:00 97 22 30 08/06/18 07:00 98.8 105 21 162/104 (123) 98 08/06/18 07:00 100 16 97 Mechanical Ventilator 30 08/06/18 06:00 88 18 166/90 (115) 99 08/06/18 05:27 88 18 170/100 (123) 99 08/06/18 05:00 90 19 160/80 (106) 98 08/06/18 04:57 84 19 08/06/18 04:00 Mechanical Ventilator Mechanical Ventilator 08/06/18 04:00 30 08/06/18 04:00 97.8 89 21 140/80 (100) 98 08/06/18 04:00 90 08/06/18 03:00 85 18 139/84 (102) 98 08/06/18 02:58 87 18 08/06/18 02:00 85 18 141/91 (108) 98 08/06/18 01:42 79 15 100 Mechanical Ventilator 30 08/06/18 01:30 84 20 98 Mechanical Ventilator 30 08/06/18 01:29 82 20 08/06/18 01:00 Mechanical Ventilator Mechanical Ventilator 08/06/18 01:00 30 08/06/18 01:00 81 19 158/92 (114) 98 08/06/18 00:00 79 19 135/90 (105) 98 08/06/18 00:00 100 08/05/18 23:00 79 19 158/93 (114) 98 08/05/18 22:51 89 21 08/05/18 22:00 84 19 148/87 (107) 97 08/05/18 21:20 94 25 08/05/18 21:00 87 20 154/81 (105) 97 08/05/18 20:00 97.4 88 21 147/84 (105) 96 08/05/18 20:00 92 08/05/18 20:00 30 08/05/18 20:00 Mechanical Ventilator Mechanical Ventilator 08/05/18 19:30 90 21 100 Mechanical Ventilator 30 08/05/18 19:21 80 19 96 Mechanical Ventilator 30 08/05/18 19:20 87 19 08/05/18 18:59 93 23 160/97 (118) 96 08/05/18 18:00 79 23 167/98 (121) 96 Height (Feet): 5 Height (Inches): 6.00 Weight (Pounds): 223 General Appearance: WD/WN, no acute distress, other - intubated on mechanical ventilation HEENT: normocephalic, atraumatic, anicteric, mucous membranes moist, PERRL, EOMI, pharynx normal, supple Respiratory/Chest: chest wall non-tender, no respiratory distress, no accessory muscle use, decreased breath sounds, crackles/rales Cardiovascular: normal peripheral pulses, normal rate, regular rhythm, no gallop/murmur, no JVD Abdomen: normal bowel sounds, soft, non tender, no organomegaly, non distended , no mass, no scars Genitourinary: normal external genitalia Extremities: no cyanosis, no clubbing Skin: no rash, no lesions, no ulcers Neurologic/Psychiatric: alert, responsive Lymphatic: no neck adenopathy, no groin adenopathy Musculoskeletal: normal muscle bulk, no effusion Laboratory Tests Test 08/06/18 08:02 White Blood Count 8.9 K/UL (4.8-10.8) Red Blood Count 4.17 M/UL (4.70-6.10) L Hemoglobin 11.6 G/DL (14.2-18.0) L Hematocrit 36.5 % (42.0-52.0) L Mean Corpuscular Volume 88 FL (80-99) Mean Corpuscular Hemoglobin 27.9 PG (27.0-31.0) Mean Corpuscular Hemoglobin Concent 31.8 G/DL (32.0-36.0) L Red Cell Distribution Width 14.4 % (11.6-14.8) Platelet Count 201 K/UL (150-450) Mean Platelet Volume 6.3 FL (6.5-10.1) L Neutrophils (%) (Auto) 79.2 % (45.0-75.0) H Lymphocytes (%) (Auto) 10.5 % (20.0-45.0) L Monocytes (%) (Auto) 8.0 % (1.0-10.0) Eosinophils (%) (Auto) 1.3 % (0.0-3.0) Basophils (%) (Auto) 0.9 % (0.0-2.0) Sodium Level 141 MMOL/L (136-145) Potassium Level 3.6 MMOL/L (3.5-5.1) Chloride Level 107 MMOL/L (98-107) Carbon Dioxide Level 20 MMOL/L (21-32) L Anion Gap 14 mmol/L (5-15) Blood Urea Nitrogen 23 mg/dL (7-18) H Creatinine 1.0 MG/DL (0.55-1.30) Estimat Glomerular Filtration Rate mL/min (>60) Glucose Level 65 MG/DL (74-106) L Calcium Level 8.6 MG/DL (8.5-10.1) Current Medications Medications (Trade) Dose Ordered Sig/Colin Route PRN Reason Start Time Stop Time Status Last Admin Dose Admin Acetaminophen (Tylenol) 650 mg Q6H PRN ORAL Mild Pain/Temp > 100.5 08/02/18 13:00 09/01/18 12:59 Albuterol/ Ipratropium (Albuterol/ Ipratropium) 3 ml Q4H PRN HHN Shortness of Breath 08/02/18 13:00 08/07/18 12:59 Albuterol/ Ipratropium (Albuterol/ Ipratropium) 3 ml Q6HRT HHN 08/02/18 13:00 08/07/18 12:59 08/06/18 13:03 Atorvastatin Calcium (Lipitor) 20 mg BEDTIME ORAL 08/03/18 21:00 09/02/18 20:59 08/05/18 21:12 Carbidopa/Levodopa (Sinemet 25/100) 1 tab THREE TIMES A DAY ORAL 08/03/18 18:00 09/02/18 17:59 08/06/18 13:59 Diltiazem HCl (Cardizem CD) 240 mg DAILY ORAL 08/03/18 10:00 09/02/18 09:59 08/06/18 09:51 Gabapentin (Neurontin) 100 mg QHS ORAL 08/03/18 21:00 09/02/18 20:59 08/05/18 21:12 Heparin Sodium (Porcine) (Heparin 5000 units/ml) 5,000 units EVERY 12 HOURS SUBQ 08/05/18 21:00 09/04/18 20:59 08/05/18 21:14 Lorazepam (Ativan 2mg/ml 1ml) 1 mg Q4H PRN IV For Anxiety 08/02/18 13:46 08/09/18 13:45 Meropenem 1 gm/ Sodium Chloride 110 ml @ 220 mls/hr Q8HR IVPB 08/05/18 11:00 08/10/18 10:59 08/06/18 13:59 Ondansetron HCl (Zofran) 4 mg Q6H PRN IVP Nausea & Vomiting 08/02/18 13:00 09/01/18 12:59 Pantoprazole (Protonix) 40 mg DAILY IVP 08/03/18 09:00 09/02/18 08:59 08/06/18 09:50 Sodium Chloride 1,000 ml @ 50 mls/hr Q20H IV 08/05/18 12:38 09/04/18 12:37 08/06/18 09:52 Tamsulosin HCl (Flomax) 0.4 mg BEDTIME ORAL 08/03/18 21:00 09/02/18 20:59 08/05/18 21:12 Vancomycin HCl (Vanco rx to dose) 1 ea DAILY PRN MISC Per rx protocol 08/02/18 10:45 09/01/18 10:44 Vancomycin HCl 750 mg/Sodium Chloride 275 ml @ 183.333 mls/hr Q12HR@1100,2300 IVPB 08/05/18 11:00 08/10/18 10:59 08/06/18 11:39 Venlafaxine HCl (Effexor-XR) 37.5 mg DAILY ORAL 08/04/18 09:00 09/03/18 08:59 08/06/18 09:50 Vitamin B Complex/ Vit C/Folic Acid (Nephrovite) 1 tab DAILY ORAL 08/04/18 09:00 09/03/18 08:59 08/06/18 09:50 Srini Sam M.D. Aug 06, 2018 17:24
[2018-08-06] MEDS ORDERED: NS 275ml ONE (17:45)
[2018-08-06] MEDS ORDERED: cefTRIAXone 2 GM in D5W 55 ML IVPB SCH (18:00)
--- NOTE | 2018-08-06 19:23 | NUR ---
HAND-OFF: Report given to piero. endorsed tube feeding
--- NOTE | 2018-08-06 20:00 | NUR ---
NURSE NOTES: pt lethargic open eyes to touch but do not follows command on wilma soft wrist restraints non complaint tube feeding with glucerna 1.5 at 20cc for 6hr-50 cc max
[2018-08-06] MEDS: Atorvastatin 20mg tab ORAL SCH (20:41)
[2018-08-06] MEDS: Tamsulosin 0.4mg cap ORAL SCH (20:41)
--- NOTE | 2018-08-06 22:06 | NUR ---
NURSE NOTES: iv infusing well site good reposition no acute respiratory distress note urinary output good
--- NOTE | 2018-08-06 22:07 | Cardiology Progress Note ---
Assessment/Plan Status: stable Assessment/Plan Assessment/Plan Status: stable Assessment/Plan Assessment: Altered Mental Status parkinson STUART CKD AFIB RVR HLD CVA GI bleed Plan: Continue cardizem 240 mg CD - rates controlled Heparin Gtt --> transition to NOAC upon discharge No plans for cardioversion TTE with aortic stenosis Continue abx for aspiration PNA Pulmonary toilet Dr. Bay to resume care when returns to [facility] 08/09 Critical care 35 minutes Subjective Cardiovascular: Reports: no symptoms Respiratory: Reports: no symptoms Gastrointestinal/Abdominal: Reports: no symptoms Genitourinary: Reports: no symptoms Subjective Patient extubated today, on restraints due to agitation, BP elevated, heart rate controlled Objective Last 24 Hour Vital Signs Date Time Temp Pulse Resp B/P (MAP) Pulse Ox O2 Delivery O2 Flow Rate FiO2 08/06/18 21:00 88 18 137/95 (109) 97 08/06/18 20:07 82 18 100 Nasal Cannula 4.0 36 08/06/18 20:00 Mechanical Ventilator Mechanical Ventilator 08/06/18 20:00 98.6 84 17 158/91 (113) 100 08/06/18 20:00 83 08/06/18 19:57 Nasal Cannula 4.0 36 08/06/18 19:56 80 15 99 Mechanical Ventilator 30 08/06/18 19:00 89 17 159/96 (117) 99 08/06/18 18:00 91 20 162/113 (129) 100 08/06/18 17:00 92 21 163/99 (120) 100 08/06/18 16:23 Nasal Cannula 4.0 36 08/06/18 16:20 4.0 08/06/18 16:00 98.9 90 15 152/95 (114) 100 08/06/18 16:00 Mechanical Ventilator Mechanical Ventilator 08/06/18 16:00 96 08/06/18 16:00 30 08/06/18 15:09 89 17 30 08/06/18 15:00 94 17 156/83 (107) 99 08/06/18 14:00 103 17 145/90 (108) 99 08/06/18 13:03 85 14 100 Mechanical Ventilator 30 08/06/18 13:00 90 16 183/109 (133) 100 08/06/18 12:54 97 17 30 08/06/18 12:54 97 15 100 Mechanical Ventilator 30 08/06/18 12:00 Mechanical Ventilator Mechanical Ventilator 08/06/18 12:00 99.1 88 16 150/91 (110) 100 08/06/18 12:00 30 08/06/18 12:00 88 08/06/18 11:00 91 16 149/93 (111) 98 08/06/18 10:55 85 16 30 08/06/18 10:00 94 19 160/109 (126) 99 08/06/18 09:51 102 173/115 08/06/18 09:02 100 19 30 08/06/18 09:00 100 19 173/115 (134) 100 08/06/18 08:00 30 08/06/18 08:00 93 17 161/92 (115) 97 08/06/18 08:00 97 08/06/18 08:00 Mechanical Ventilator Mechanical Ventilator 08/06/18 07:08 101 22 100 Mechanical Ventilator 30 08/06/18 07:00 97 22 30 08/06/18 07:00 98.8 105 21 162/104 (123) 98 08/06/18 07:00 100 16 97 Mechanical Ventilator 30 08/06/18 06:00 88 18 166/90 (115) 99 08/06/18 05:27 88 18 170/100 (123) 99 08/06/18 05:00 90 19 160/80 (106) 98 08/06/18 04:57 84 19 08/06/18 04:00 Mechanical Ventilator Mechanical Ventilator 08/06/18 04:00 30 08/06/18 04:00 97.8 89 21 140/80 (100) 98 08/06/18 04:00 90 08/06/18 03:00 85 18 139/84 (102) 98 08/06/18 02:58 87 18 08/06/18 02:00 85 18 141/91 (108) 98 08/06/18 01:42 79 15 100 Mechanical Ventilator 30 08/06/18 01:30 84 20 98 Mechanical Ventilator 30 08/06/18 01:29 82 20 08/06/18 01:00 Mechanical Ventilator Mechanical Ventilator 08/06/18 01:00 30 08/06/18 01:00 81 19 158/92 (114) 98 08/06/18 00:00 79 19 135/90 (105) 98 08/06/18 00:00 100 08/05/18 23:00 79 19 158/93 (114) 98 08/05/18 22:51 89 21 General Appearance: mild distress, combative EENT: PERRL/EOMI, normal ENT inspection, TMs normal, pharynx normal Neck: non-tender, normal alignment, supple, normal inspection, no JVD Rhythm: Afib Cardiovascular: normal peripheral pulses, normal rate, arrhythmia Respiratory/Chest: chest wall non-tender, lungs clear Abdomen: normal bowel sounds, non tender, soft, no organomegaly, no mass Extremities: normal range of motion, non-tender, normal inspection, no calf tenderness, no swelling Neurologic: terrazzo roller II-XII grossly normal, no motor/sensory deficits Intake and Output 08/05/18 08/06/18 19:00 07:00 Intake Total 726.666 ml 1045 ml Output Total 780 ml 690 ml Balance -53.334 ml 355 ml Intake Oral 0 ml 0 ml IV Total 726.666 ml 1045 ml Output Urine Total 780 ml 690 ml # Bowel Movements 1 Laboratory Tests Test 08/06/18 08:02 White Blood Count 8.9 K/UL (4.8-10.8) Red Blood Count 4.17 M/UL (4.70-6.10) L Hemoglobin 11.6 G/DL (14.2-18.0) L Hematocrit 36.5 % (42.0-52.0) L Mean Corpuscular Volume 88 FL (80-99) Mean Corpuscular Hemoglobin 27.9 PG (27.0-31.0) Mean Corpuscular Hemoglobin Concent 31.8 G/DL (32.0-36.0) L Red Cell Distribution Width 14.4 % (11.6-14.8) Platelet Count 201 K/UL (150-450) Mean Platelet Volume 6.3 FL (6.5-10.1) L Neutrophils (%) (Auto) 79.2 % (45.0-75.0) H Lymphocytes (%) (Auto) 10.5 % (20.0-45.0) L Monocytes (%) (Auto) 8.0 % (1.0-10.0) Eosinophils (%) (Auto) 1.3 % (0.0-3.0) Basophils (%) (Auto) 0.9 % (0.0-2.0) Sodium Level 141 MMOL/L (136-145) Potassium Level 3.6 MMOL/L (3.5-5.1) Chloride Level 107 MMOL/L (98-107) Carbon Dioxide Level 20 MMOL/L (21-32) L Anion Gap 14 mmol/L (5-15) Blood Urea Nitrogen 23 mg/dL (7-18) H Creatinine 1.0 MG/DL (0.55-1.30) Estimat Glomerular Filtration Rate mL/min (>60) Glucose Level 65 MG/DL (74-106) L Calcium Level 8.6 MG/DL (8.5-10.1) Richie Trotter MD Aug 06, 2018 22:07
[2018-08-07] VITALS (16 sets, daily range): BP systolic 133–171; BP diastolic 76–100
--- NOTE | 2018-08-07 | NUR ---
NURSE NOTES: PT CONDITION UN CHANGE
[2018-08-07] MEDS: Albuterol/Ipratropium 3ml neb HHN SCH ×4 (01:19→19:19)
--- NOTE | 2018-08-07 02:00 | NUR ---
NURSE NOTES: no c/o of pain and no acute resp distress noted
--- NOTE | 2018-08-07 04:00 | NUR ---
NURSE NOTES: complete bed bath oral care arellano care wound care and dressing care done reposition and suction
--- NOTE | 2018-08-07 06:00 | NUR ---
NURSE NOTES: asleep tolerating 4l n/c with o2 sat 97-100 0/0 tube feeding at 40 cc/hr no residual
--- NOTE | 2018-08-07 08:50 | NUR ---
NURSE NOTES: Dr. Arrington rounded and updated at the bedside regarding patient status, placed order for cbc and bmp for labs, contacted next of kin to inform patient condition and clarify regarding code status, concluded to have patient remain in DNR with no compressions and if needed he can be reintubated,
--- NOTE | 2018-08-07 09:01 | General Progress Note ---
Assessment/Plan Status: stable Assessment: 1. Acute Respiratory failure - Extubated yesterday. Still in ICU. Pulm following. on tube feeding. Transfer to step down today if OK with pulm. labs pending today. 2. Asp Pneumonia Cont IV ABX per ID. improved. follow cultures. 3. sepsis - Cont IV ABX meripenem and Vanco per ID. improved. follow cultures. 4. Chronic A fib - rate controlled - pail tester is following. 5. Parkinson dementia - cont home meds. 6. Chronic Lt leg Popliteal thrombosis - off anticoagulation due to high risk of bleeding and previous hx of GI bleeding. 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 7. Chronic kidney disease - stable. 8. Hx of renal mass - family refused the work up last admission. currently DNR. 9. Hx of CVA with one sided hemiplegia 10. Depression - cont home meds. 11. Neuropathy - stable. 12. Hyperlipidemia - cont home med. Subjective Date patient seen: Aug 07, 2018 Time patient seen: 08:40 Constitutional: Reports: weakness HEENT: Reports: no symptoms Cardiovascular: Reports: no symptoms Respiratory: Reports: no symptoms Gastrointestinal/Abdominal: Reports: no symptoms Genitourinary: Reports: no symptoms Neurologic/Psychiatric: Reports: no symptoms Endocrine: Reports: no symptoms Hematologic/Lymphatic: Reports: no symptoms Allergies: Coded Allergies: MORPHINE (Verified Allergy, Unknown, 03/25/18) PENICILLINS (Verified Allergy, Unknown, 03/05/18) Subjective He was extubated yesterday. He is doing well today. afebrile. Objective Last 24 Hour Vital Signs Date Time Temp Pulse Resp B/P (MAP) Pulse Ox O2 Delivery O2 Flow Rate FiO2 08/07/18 07:00 93 19 159/90 (113) 98 08/07/18 06:58 93 20 96 Nasal Cannula 2.0 28 08/07/18 06:48 93 19 99 Nasal Cannula 4.0 36 08/07/18 06:47 Nasal Cannula 4.0 36 08/07/18 06:00 94 20 152/90 (110) 99 08/07/18 05:00 93 19 171/85 (113) 100 08/07/18 04:00 100 08/07/18 04:00 Mechanical Ventilator Mechanical Ventilator 08/07/18 04:00 97.5 102 23 155/100 (118) 100 08/07/18 04:00 4.0 08/07/18 03:00 99 20 133/87 (102) 08/07/18 02:00 103 22 141/83 (102) 96 08/07/18 01:27 87 23 100 Nasal Cannula 4.0 36 08/07/18 01:16 87 22 98 Mechanical Ventilator 30 08/07/18 01:00 97.8 83 20 141/90 (107) 99 08/07/18 00:00 84 08/07/18 00:00 4.0 08/07/18 00:00 89 20 149/86 (107) 99 08/07/18 00:00 Mechanical Ventilator Mechanical Ventilator 08/06/18 23:00 86 21 142/87 (105) 99 08/06/18 22:00 87 22 151/81 (104) 99 08/06/18 21:00 88 18 137/95 (109) 97 08/06/18 20:07 82 18 100 Nasal Cannula 4.0 36 08/06/18 20:00 4.0 08/06/18 20:00 Mechanical Ventilator Mechanical Ventilator 08/06/18 20:00 98.6 84 17 158/91 (113) 100 08/06/18 20:00 83 08/06/18 19:57 Nasal Cannula 4.0 36 08/06/18 19:56 80 15 99 Mechanical Ventilator 30 08/06/18 19:00 89 17 159/96 (117) 99 08/06/18 18:00 91 20 162/113 (129) 100 08/06/18 17:00 92 21 163/99 (120) 100 08/06/18 16:23 Nasal Cannula 4.0 36 08/06/18 16:20 4.0 08/06/18 16:00 98.9 90 15 152/95 (114) 100 08/06/18 16:00 Mechanical Ventilator Mechanical Ventilator 08/06/18 16:00 96 08/06/18 16:00 30 08/06/18 15:09 89 17 30 08/06/18 15:00 94 17 156/83 (107) 99 08/06/18 14:00 103 17 145/90 (108) 99 08/06/18 13:03 85 14 100 Mechanical Ventilator 30 08/06/18 13:00 90 16 183/109 (133) 100 08/06/18 12:54 97 17 30 4/16/19 12:54 97 15 100 Mechanical Ventilator 30 08/06/18 12:00 Mechanical Ventilator Mechanical Ventilator 08/06/18 12:00 99.1 88 16 150/91 (110) 100 08/06/18 12:00 30 08/06/18 12:00 88 08/06/18 11:00 91 16 149/93 (111) 98 08/06/18 10:55 85 16 30 08/06/18 10:00 94 19 160/109 (126) 99 08/06/18 09:51 102 173/115 08/06/18 09:02 100 19 30 08/06/18 09:00 100 19 173/115 (134) 100 Intake and Output 08/06/18 08/07/18 19:00 07:00 Intake Total 1086.666 ml 1280 ml Output Total 905 ml 1820 ml Balance 181.666 ml -540 ml Intake Oral 0 ml Free Water 60 ml IV Total 1086.666 ml 900 ml Tube Feeding 320 ml Output Urine Total 905 ml 1820 ml # Bowel Movements 1 Height (Feet): 5 Height (Inches): 6.00 Weight (Pounds): 221 General Appearance: no apparent distress, alert EENT: normal ENT inspection Neck: non-tender, supple Cardiovascular: normal peripheral pulses, normal rate, regular rhythm Respiratory/Chest: chest wall non-tender, lungs clear, normal breath sounds Abdomen: normal bowel sounds, non tender, soft, no organomegaly Extremities: normal range of motion, non-tender Edema: no edema noted Arm (L), no edema noted Arm (R), no edema noted Leg (L), no edema noted Leg (R), no edema noted Pedal (L), no edema noted Pedal (R), no edema noted Generalized Neurologic: alert, responsive Skin: warm/dry Lymphatic: normal anterior cervical (L), normal anterior cervical (R), normal posterior cervical (L), normal posterior cervical (R), normal submandibular (L) , normal submandibular (R), normal supraclavicular (L), normal supraclavicular ( R), normal axillary (L), normal axillary (R), normal inguinal (L), normal inguinal (R), normal other Shelby Arrington MD Aug 07, 2018 09:01
[2018-08-07] MEDS: Levodopa/Carbidopa 25/100 tab ORAL SCH ×4 (09:45→18:10)
[2018-08-07] MEDS: Venlafaxine XR 37.5mg cap ORAL SCH (09:45)
[2018-08-07] MEDS: Nephrovite tab (Rena-Vite) ORAL SCH (09:45)
[2018-08-07] MEDS: Pantoprazole Inj IVP SCH (09:46)
[2018-08-07] MEDS: dilTIAZem HCl CD 240mg cap ORAL SCH (09:46)
[2018-08-07] MEDS: Heparin 5000 units/ml inj SUBQ SCH ×2 (09:48→21:30)
[2018-08-07 10:04] LABS: ANION GAP 13 mmol/L (5-15); BLOOD UREA NITROGEN 18 mg/dL (7-18); CALCIUM 8.6 MG/DL (8.5-10.1); CARBON DIOXIDE 23 MMOL/L (21-32); CHLORIDE 106 MMOL/L (98-107); POTASSIUM 3.2 MMOL/L (3.5-5.1); SODIUM 142 MMOL/L (136-145)
[2018-08-07 10:10] LABS: BASOPHILS % (AUTO) 0.9 % (0.0-2.0); EOSINOPHILS % (AUTO) 0.9 % (0.0-3.0); HEMATOCRIT 37.6 % (42.0-52.0); HEMOGLOBIN 12.1 G/DL (14.2-18.0); LYMPHOCYTES % (AUTO) 7.2 % (20.0-45.0); MEAN CORPUSCULAR VOLUME 86 FL (80-99); MONOCYTES % (AUTO) 8.5 % (1.0-10.0); NEUTROPHILS % (AUTO) 82.6 % (45.0-75.0); PLATELET COUNT 219 K/UL (150-450); RED BLOOD COUNT 4.38 M/UL (4.70-6.10); RED CELL DISTRIBUTION WIDTH 14.1 % (11.6-14.8); WHITE BLOOD COUNT 12.6 K/UL (4.8-10.8)
--- NOTE | 2018-08-07 10:30 | NUR ---
NURSE NOTES: Patient repositioned in bed with hands and feet elevated with pillows, patient remain son nasal cannula with no distress noted, remains of restraints with skin intact and hands pink, pulses are present with active range of motion at 2/5.
--- NOTE | 2018-08-07 11:01 | NUR ---
RD ASSESSMENT & RECOMMENDATIONS SEE CARE ACTIVITY FOR COMPLETE ASSESSMENT DAILY ESTIMATED NEEDS: Needs based on Obese, wound, bedbound, 79kg adj 22-25 kcals/kg 3734-0987 total kcals 1.25-1.5 g protein/kg 99-119 g total protein 20-25 mL/kg 0410-5059 total fluid mLs NUTRITION DIAGNOSIS: * Swallowing difficulty R/T dysphagia, h/o CVA w/ hemiplegia, evidenced by s/p recent PEG placement, now extubated, on NC. * Increased protein needs r/t wound healing as evidenced by pt sacral partial thickness wound. CURRENT TF:Glucerna 1.5 @50ml /hr x24 hrs ENTERAL NUTRITION RECOMMENDATIONS: Glucerna 1.5 @50ml /hr x24 hrs to provide 1200ml, 1800 kcal, 99g prot, 911ml free H2O - Maintain current TF - Flush per MD/ HOB over 30 degrees ADDITIONAL RECOMMENDATIONS: 1) Monitor BGs, need for SSI 2) Check A1C for eval of glycemic control- prev episodes of hyperglycemia 3) Sacral wound: Add via GT-> MARTHA BID + Vit C 250mg daily : Rec WC eval 4) Recalibrate bed scale: conflicting weights EMR wt: 220#, Bed scale wt: 238# 5) Check lytes daily, replete as needed
--- NOTE | 2018-08-07 11:24 | NUR ---
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 ENCEPHALOPATHY . LLL PNEUMONIA VS: BP 156/96, P 102, T 98.9, RR 19, SpO2 98 on 2.0 L O2 WBC 12.6, RBC 4.38, Hgb 12.1, Hct 37.6, K 3.2 IS:LINEZOLID 300ml IVPB HEPARIN SUBQ NS x1L IV VENLAFAXINE HCI 37.5 CARBIDOPA/LEVODOPA 1tab LIPITOR 20mg GABAPENTIN 100mg FLOMAX 0.4mg CARDIZEM 240mg PROTONIX 40mg IVP ICU STATUS
--- NOTE | 2018-08-07 11:45 | NUR ---
NURSE NOTES: Dr. Patel updated at the bedside regarding patient respiratory status, dr. Patel orders to have patient placed on room air and patient remains saturating at 97% with no distress, notified regarding potassium of 3.2, he ordered to have 40mEq PO once with additional 40mEq, IVPB, once. he also ordered to have the duoneb renewed.
--- NOTE | 2018-08-07 11:45 | Pulmonolgy Critical Care Note ---
Critical Care - Asmt/Plan Problems: (1) Sepsis Assessment & Plan: HEMODYNAMICALLY STABLE (2) Respiratory failure, acute Assessment & Plan: EXTUBATED 08/06 (3) Airway intubation performed without difficulty Assessment & Plan: EXTUBATED 08/06 (4) LLL pneumonia Assessment & Plan: CLINICALLY IMPROVED (5) Left arm cellulitis (6) STUART (acute kidney injury) Assessment & Plan: RESOLVED (7) CKD (chronic kidney disease) (8) Dementia (9) Leukocytosis (10) FTT (failure to thrive) in adult (11) Afib Respiratory: monitor respiratory rate, adjust FIO2 - Titrate o2 off to keep SaO2 > 90%, other - HHN's, pulmonary hygiene/ Cardiac: other - Dilt, cards recs, off A/C 2/2 bleeding risk (prior GIB), ? 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, ID Discussed with: nurses, consultants, other - DNAR Critical Care - Objective Last 24 Hour Vital Signs Date Time Temp Pulse Resp B/P (MAP) Pulse Ox O2 Delivery O2 Flow Rate FiO2 08/07/18 11:00 92 15 138/76 (96) 100 08/07/18 10:00 97 19 141/85 (103) 100 08/07/18 09:46 94 156/91 08/07/18 09:00 98 19 150/92 (111) 98 08/07/18 09:00 102 08/07/18 08:00 2.0 08/07/18 08:00 98.9 102 19 156/96 (116) 98 08/07/18 07:47 Nasal Cannula 2.0 28 08/07/18 07:00 93 19 159/90 (113) 98 08/07/18 06:58 93 20 96 Nasal Cannula 2.0 28 08/07/18 06:48 93 19 99 Nasal Cannula 4.0 36 08/07/18 06:47 Nasal Cannula 4.0 36 08/07/18 06:00 94 20 152/90 (110) 99 08/07/18 05:00 93 19 171/85 (113) 100 08/07/18 04:00 100 08/07/18 04:00 Mechanical Ventilator Mechanical Ventilator 08/07/18 04:00 97.5 102 23 155/100 (118) 100 08/07/18 04:00 4.0 08/07/18 03:00 99 20 133/87 (102) 08/07/18 02:00 103 22 141/83 (102) 96 08/07/18 01:27 87 23 100 Nasal Cannula 4.0 36 08/07/18 01:16 87 22 98 Mechanical Ventilator 30 08/07/18 01:00 97.8 83 20 141/90 (107) 99 08/07/18 00:00 84 08/07/18 00:00 4.0 08/07/18 00:00 89 20 149/86 (107) 99 08/07/18 00:00 Mechanical Ventilator Mechanical Ventilator 08/06/18 23:00 86 21 142/87 (105) 99 08/06/18 22:00 87 22 151/81 (104) 99 08/06/18 21:00 88 18 137/95 (109) 97 08/06/18 20:07 82 18 100 Nasal Cannula 4.0 36 08/06/18 20:00 4.0 08/06/18 20:00 Mechanical Ventilator Mechanical Ventilator 08/06/18 20:00 98.6 84 17 158/91 (113) 100 08/06/18 20:00 83 08/06/18 19:57 Nasal Cannula 4.0 36 08/06/18 19:56 80 15 99 Mechanical Ventilator 30 08/06/18 19:00 89 17 159/96 (117) 99 08/06/18 18:00 91 20 162/113 (129) 100 08/06/18 17:00 92 21 163/99 (120) 100 08/06/18 16:23 Nasal Cannula 4.0 36 08/06/18 16:20 4.0 08/06/18 16:00 98.9 90 15 152/95 (114) 100 08/06/18 16:00 Mechanical Ventilator Mechanical Ventilator 08/06/18 16:00 96 08/06/18 16:00 30 08/06/18 15:09 89 17 30 08/06/18 15:00 94 17 156/83 (107) 99 08/06/18 14:00 103 17 145/90 (108) 99 08/06/18 13:03 85 14 100 Mechanical Ventilator 30 08/06/18 13:00 90 16 183/109 (133) 100 08/06/18 12:54 97 17 30 08/06/18 12:54 97 15 100 Mechanical Ventilator 30 08/06/18 12:00 Mechanical Ventilator Mechanical Ventilator 08/06/18 12:00 99.1 88 16 150/91 (110) 100 08/06/18 12:00 30 08/06/18 12:00 88 Status: awake, other - minimall verbal follows simple commands Condition: improving HEENT: atraumatic, normocephalic Lungs: rhonchi - few scattered Heart: HR/BP stable, irregular Abdomen: soft, non-tender, active bowel sounds, feeding tube Extremities: edema - 1+, cyanosis - no, clubbing - no Decubiti: location - sacral, stage - 2 Blood Sugars: BS controlled Critical Care - Subjective ROS Limited/Unobtainable: Yes ICU Day: 6 Intubation Day: extubated Interval Events: 100% on 2L Awake follows basic commands No cough no SOB no wheezing no FC TF's started Condition: stable IV Access: peripheral EKG Rhythm: Atrial Fibrillation FI02: 28 Vent Support Breath Rate: 16 Vent Support Mode: CPAP Vent Tidal Volume: 500 Sputum Amount: None PEEP: 5.0 PIP: 14 Secretions: None Fluids: NS@50 Tube Feeding Amount: 40 I&O: Intake and Output 08/06/18 08/07/18 19:00 07:00 Intake Total 1086.666 ml 1280 ml Output Total 905 ml 1820 ml Balance 181.666 ml -540 ml Intake Oral 0 ml Free Water 60 ml IV Total 1086.666 ml 900 ml Tube Feeding 320 ml Output Urine Total 905 ml 1820 ml # Bowel Movements 1 Subjective: SABRINA Labs: Laboratory Tests Test 08/07/18 09:20 White Blood Count 12.6 K/UL (4.8-10.8) H Red Blood Count 4.38 M/UL (4.70-6.10) L Hemoglobin 12.1 G/DL (14.2-18.0) L Hematocrit 37.6 % (42.0-52.0) L Mean Corpuscular Volume 86 FL (80-99) Mean Corpuscular Hemoglobin 27.7 PG (27.0-31.0) Mean Corpuscular Hemoglobin Concent 32.2 G/DL (32.0-36.0) Red Cell Distribution Width 14.1 % (11.6-14.8) Platelet Count 219 K/UL (150-450) Mean Platelet Volume 6.2 FL (6.5-10.1) L Neutrophils (%) (Auto) 82.6 % (45.0-75.0) H Lymphocytes (%) (Auto) 7.2 % (20.0-45.0) L Monocytes (%) (Auto) 8.5 % (1.0-10.0) Eosinophils (%) (Auto) 0.9 % (0.0-3.0) Basophils (%) (Auto) 0.9 % (0.0-2.0) Sodium Level 142 MMOL/L (136-145) Potassium Level 3.2 MMOL/L (3.5-5.1) L Chloride Level 106 MMOL/L (98-107) Carbon Dioxide Level 23 MMOL/L (21-32) Anion Gap 13 mmol/L (5-15) Blood Urea Nitrogen 18 mg/dL (7-18) Creatinine 1.0 MG/DL (0.55-1.30) Estimat Glomerular Filtration Rate mL/min (>60) Glucose Level 90 MG/DL (74-106) Calcium Level 8.6 MG/DL (8.5-10.1) Messi Patel MD Aug 07, 2018 11:45
[2018-08-07] MEDS ORDERED: Tubing IV Secondary IV ONE ×2 (12:04→15:51)
[2018-08-07] MEDS ORDERED: NS 275ml ONE (12:04)
--- NOTE | 2018-08-07 12:41 | NUR ---
RESPIRATORY NOTE: Breathing Tx Duoneb scheduled at 1300 was cancelled and didn't get renewed yet. Gave pt Duoneb prn Tx at 1241. The new schedule TX was ordered after I gave pt the prn tx. SHANNON Quiroz made aware. No advert reaction, SOB or resp distress noted. Addendum: 08/07/18 at 1346 by Namtran N [place] RT The order was placed at 1254.
--- NOTE | 2018-08-07 12:45 | NUR ---
NURSE NOTES: Patient taken to [facility] to room 239-[address] Arrington order, report given to Roel ORTEGA at the bedside, he is awake and alert to name, he is on room air with no distress noted, no belongings upon transfer to the floor, no medication upon transfer,
[2018-08-07] MEDS ORDERED: Albuterol/Ipratropium 3ml neb HHN PRN (13:00)
--- NOTE | 2018-08-07 13:00 | NUR ---
NURSE NOTES: Received report from Priscila Becerra RN. Patient awake, alert, confused, unable to make needs known. Patient currently receiving respiratory treatment. GT feeding of Glucerna 1.5 running @ 40 cc/hr, noted with 80 cc of residual, HoB elevated. Park catheter patent and draining well. Right hand 20g IV site infusing NS @ 20 cc/hr. Patient has bilateral soft wrist restraints, skin intact, peripheral pulses present, noted with trace edema. Both arms elevated on pillows. Noted with multiple intact serous filled blisters on left hand, sacral pressure ulcer and left lateral foot suspected DTI. Bed locked in lowest position with side rails up x 3. All needs attended to. Call light within reach. Will continue to monitor.
[2018-08-07] MEDS ORDERED: LORazepam Inj 2mg/ml 1ml IV PRN (13:03)
--- NOTE | 2018-08-07 17:25 | Infectious Diseases Prog Note ---
Assessment/Plan Problems: (1) LLL pneumonia Assessment & Plan: suspect aspiration, on zyvox and ceftriaxone empirically . aspiration precaution (2) Left arm cellulitis Assessment & Plan: suspect strep and staph related, complicated with blisters, already on wide spectrum antibiotics , keep arm elevated while in bed, venous doppler is negative for DVT (3) Sepsis Assessment & Plan: due to the above, with STAPH EPIDERMIDIS and STREP GROUP A , source? left hand cellulitis VS pneumonia VS sacral pressure wound , continue zyvox and ceftriaxone for two weeks . ECHO showed no valve vegetations . repeat blood culture to confirm clearance (4) CKD (chronic kidney disease) Assessment & Plan: continue hydration and renally dosed meds as per pharmacy (5) Renal mass, right Assessment & Plan: poor candidate for surgery (6) Encephalopathy Assessment & Plan: suspect metabolic due to the above, continue hydration with antibiotics , avoid sedatives (7) Acute respiratory failure Assessment & Plan: due to the above , intubated on mechanical ventilation, monitor ABG, and CXR , pulmonary is following Subjective Constitutional: Reports: no symptoms HEENT: Reports: no symptoms Respiratory: Reports: dry cough Breasts: Reports: no symptoms Cardiovascular: Reports: no symptoms Gastrointestinal/Abdominal: Reports: no symptoms Genitourinary: Reports: no symptoms Neurologic: Reports: no symptoms Psychiatric: Reports: no symptoms Skin: Reports: ulcer, other - left hand blisters Endocrine: Reports: no symptoms Hematologic: Reports: no symptoms Musculoskeletal: Reports: no symptoms Allergies: Coded Allergies: MORPHINE (Verified Allergy, Unknown, 03/25/18) PENICILLINS (Verified Allergy, Unknown, 03/05/18) Subjective He was awake and responsive , still intubated on mechanical ventilation , afebrile. with blisters in his left hand Objective Vital Signs Last 24 Hour Vital Signs Date Time Temp Pulse Resp B/P (MAP) Pulse Ox O2 Delivery O2 Flow Rate FiO2 08/07/18 16:00 97.8 88 20 146/86 (106) 95 08/07/18 15:14 89 08/07/18 13:44 91 08/07/18 13:00 96.9 100 18 142/86 (104) 100 08/07/18 12:51 67 19 94 Room Air 21 08/07/18 12:41 69 18 97 Room Air 21 08/07/18 12:00 Room Air 08/07/18 12:00 98.3 84 16 140/80 (100) 96 08/07/18 12:00 87 08/07/18 11:00 92 15 138/76 (96) 100 08/07/18 10:00 97 19 141/85 (103) 100 08/07/18 09:46 94 156/91 08/07/18 09:00 98 19 150/92 (111) 98 08/07/18 08:00 2.0 08/07/18 08:00 Nasal Cannula 2.0 Nasal Cannula 2.0 08/07/18 08:00 102 08/07/18 08:00 98.9 102 19 156/96 (116) 98 08/07/18 07:47 Nasal Cannula 2.0 28 08/07/18 07:00 93 19 159/90 (113) 98 08/07/18 06:58 93 20 96 Nasal Cannula 2.0 28 08/07/18 06:48 93 19 99 Nasal Cannula 4.0 36 08/07/18 06:47 Nasal Cannula 4.0 36 08/07/18 06:00 94 20 152/90 (110) 99 08/07/18 05:00 93 19 171/85 (113) 100 08/07/18 04:00 100 08/07/18 04:00 Mechanical Ventilator Mechanical Ventilator 08/07/18 04:00 97.5 102 23 155/100 (118) 100 08/07/18 04:00 4.0 08/07/18 03:00 99 20 133/87 (102) 08/07/18 02:00 103 22 141/83 (102) 96 08/07/18 01:27 87 23 100 Nasal Cannula 4.0 36 08/07/18 01:16 87 22 98 Mechanical Ventilator 30 08/07/18 01:00 97.8 83 20 141/90 (107) 99 08/07/18 00:00 84 08/07/18 00:00 4.0 08/07/18 00:00 89 20 149/86 (107) 99 08/07/18 00:00 Mechanical Ventilator Mechanical Ventilator 08/06/18 23:00 86 21 142/87 (105) 99 08/06/18 22:00 87 22 151/81 (104) 99 08/06/18 21:00 88 18 137/95 (109) 97 08/06/18 20:07 82 18 100 Nasal Cannula 4.0 36 08/06/18 20:00 4.0 08/06/18 20:00 Mechanical Ventilator Mechanical Ventilator 08/06/18 20:00 98.6 84 17 158/91 (113) 100 08/06/18 20:00 83 08/06/18 19:57 Nasal Cannula 4.0 36 08/06/18 19:56 80 15 99 Mechanical Ventilator 30 08/06/18 19:00 89 17 159/96 (117) 99 08/06/18 18:00 91 20 162/113 (129) 100 Height (Feet): 5 Height (Inches): 6.00 Weight (Pounds): 221 General Appearance: WD/WN, no acute distress HEENT: normocephalic, atraumatic, anicteric, mucous membranes moist, PERRL Respiratory/Chest: chest wall non-tender, no respiratory distress, no accessory muscle use, decreased breath sounds, crackles/rales Cardiovascular: normal peripheral pulses, normal rate, regular rhythm, no gallop/murmur, no JVD Abdomen: normal bowel sounds, soft, non tender, no organomegaly, non distended , no mass, no scars Genitourinary: normal external genitalia Extremities: no cyanosis, no clubbing Skin: no rash, no ulcers, ulcers, other - left hand blisters 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, no motor/sensory deficits, abnormal gait, oriented x 3, responsive Lymphatic: no neck adenopathy, no groin adenopathy Musculoskeletal: normal muscle bulk, no effusion Laboratory Tests Test 08/07/18 09:20 White Blood Count 12.6 K/UL (4.8-10.8) H Red Blood Count 4.38 M/UL (4.70-6.10) L Hemoglobin 12.1 G/DL (14.2-18.0) L Hematocrit 37.6 % (42.0-52.0) L Mean Corpuscular Volume 86 FL (80-99) Mean Corpuscular Hemoglobin 27.7 PG (27.0-31.0) Mean Corpuscular Hemoglobin Concent 32.2 G/DL (32.0-36.0) Red Cell Distribution Width 14.1 % (11.6-14.8) Platelet Count 219 K/UL (150-450) Mean Platelet Volume 6.2 FL (6.5-10.1) L Neutrophils (%) (Auto) 82.6 % (45.0-75.0) H Lymphocytes (%) (Auto) 7.2 % (20.0-45.0) L Monocytes (%) (Auto) 8.5 % (1.0-10.0) Eosinophils (%) (Auto) 0.9 % (0.0-3.0) Basophils (%) (Auto) 0.9 % (0.0-2.0) Sodium Level 142 MMOL/L (136-145) Potassium Level 3.2 MMOL/L (3.5-5.1) L Chloride Level 106 MMOL/L (98-107) Carbon Dioxide Level 23 MMOL/L (21-32) Anion Gap 13 mmol/L (5-15) Blood Urea Nitrogen 18 mg/dL (7-18) Creatinine 1.0 MG/DL (0.55-1.30) Estimat Glomerular Filtration Rate mL/min (>60) Glucose Level 90 MG/DL (74-106) Calcium Level 8.6 MG/DL (8.5-10.1) Current Medications Medications (Trade) Dose Ordered Sig/Colin Route PRN Reason Start Time Stop Time Status Last Admin Dose Admin Acetaminophen (Tylenol) 650 mg Q6H PRN ORAL Mild Pain/Temp > 100.5 08/07/18 13:00 09/01/18 12:59 Albuterol/ Ipratropium (Albuterol/ Ipratropium) 3 ml Q4H PRN HHN Shortness of Breath 08/07/18 13:00 08/14/18 12:59 Albuterol/ Ipratropium (Albuterol/ Ipratropium) 3 ml Q6HRT HHN 08/07/18 13:00 08/14/18 12:50 Atorvastatin Calcium (Lipitor) 20 mg BEDTIME ORAL 08/07/18 21:00 09/02/18 20:59 Carbidopa/Levodopa (Sinemet 25/100) 1 tab THREE TIMES A DAY ORAL 08/07/18 13:00 09/02/18 17:59 Ceftriaxone Sodium 2 gm/ Dextrose 55 ml @ 110 mls/hr Q24H IVPB 08/07/18 18:00 08/20/18 17:59 Diltiazem HCl (Cardizem CD) 240 mg DAILY ORAL 08/08/18 09:00 09/02/18 09:59 Gabapentin (Neurontin) 100 mg QHS ORAL 08/07/18 21:00 09/02/18 20:59 Heparin Sodium (Porcine) (Heparin 5000 units/ml) 5,000 units EVERY 12 HOURS SUBQ 08/07/18 21:00 09/04/18 20:59 Linezolid 300 ml @ 300 mls/hr Q12HR IVPB 08/07/18 21:00 08/20/18 20:59 Lorazepam (Ativan 2mg/ml 1ml) 1 mg Q4H PRN IV For Anxiety 08/07/18 13:03 08/09/18 13:02 Ondansetron HCl (Zofran) 4 mg Q6H PRN IVP Nausea & Vomiting 08/07/18 13:02 09/01/18 13:01 Pantoprazole (Protonix) 40 mg DAILY IVP 08/08/18 09:00 09/02/18 08:59 Potassium Chloride 100 ml @ 100 mls/hr Q1H IVPB 08/07/18 14:00 08/07/18 17:59 08/07/18 17:03 Sodium Chloride 1,000 ml @ 20 mls/hr Q24H IV 08/07/18 13:00 09/04/18 11:59 08/07/18 13:17 Tamsulosin HCl (Flomax) 0.4 mg BEDTIME ORAL 08/07/18 21:00 09/02/18 20:59 Venlafaxine HCl (Effexor-XR) 37.5 mg DAILY ORAL 08/08/18 09:00 09/03/18 08:59 Vitamin B Complex/ Vit C/Folic Acid (Nephrovite) 1 tab DAILY ORAL 08/08/18 09:00 09/03/18 08:59 Srini Sam M.D. Aug 07, 2018 17:25
[2018-08-07] MEDS: cefTRIAXone 2 GM in D5W 55 ML IVPB SCH (18:10)
--- NOTE | 2018-08-07 19:28 | NUR ---
HAND-OFF: Report given to Maria Teresa Garcia RN.
--- NOTE | 2018-08-07 19:30 | NUR ---
NURSE NOTES: Received patient from Sanaz ORTEGA. Patient is asleep showing no signs of distress. Patient has a Gtube that is patent. Feeding is Glucerna 1.5 that is currently off due to 40cc of residual. Park catheter is patent and draining. IV site is right hand 20g receiving NS at 20cc/hr. Bed is locked, placed in lowest position, side rails up x3, call light within reach. Will continue to monitor.
[2018-08-07] MEDS: Atorvastatin 20mg tab ORAL SCH (21:27)
[2018-08-07] MEDS: Tamsulosin 0.4mg cap ORAL SCH (21:27)
--- NOTE | 2018-08-07 21:42 | Cardiology Progress Note ---
Assessment/Plan Status: stable Assessment/Plan Assessment/Plan Status: stable Assessment/Plan Assessment: Altered Mental Status parkinson STUART CKD AFIB RVR HLD CVA GI bleed Plan: Continue cardizem 240 mg CD - rates controlled Anticoagulation held due to bleeding Continue atorvastatin Outpatient stress test No plans for cardioversion TTE with aortic stenosis Continue abx for aspiration PNA Pulmonary toilet Dr. Bay to resume care when returns to [facility] 08/09 Critical care 35 minutes Subjective Cardiovascular: Reports: no symptoms Respiratory: Reports: no symptoms Gastrointestinal/Abdominal: Reports: no symptoms Subjective Transferred to [facility], no distress, tolerating tube feeds, heart rate controlled, no bleeding Objective Last 24 Hour Vital Signs Date Time Temp Pulse Resp B/P (MAP) Pulse Ox O2 Delivery O2 Flow Rate FiO2 08/07/18 20:00 Room Air Room Air Room Air 08/07/18 20:00 98.1 92 18 140/89 (106) 94 08/07/18 19:29 79 18 98 Room Air 21 08/07/18 19:24 81 08/07/18 19:19 94 Room Air 21 08/07/18 19:19 Room Air 21 08/07/18 19:19 78 18 94 Room Air 21 08/07/18 16:00 Room Air 08/07/18 16:00 97.8 88 20 146/86 (106) 95 08/07/18 15:14 89 08/07/18 13:44 91 08/07/18 13:00 96.9 100 18 142/86 (104) 100 08/07/18 12:51 67 19 94 Room Air 21 08/07/18 12:41 69 18 97 Room Air 21 08/07/18 12:00 Room Air 08/07/18 12:00 98.3 84 16 140/80 (100) 96 08/07/18 12:00 87 08/07/18 11:00 92 15 138/76 (96) 100 08/07/18 10:00 97 19 141/85 (103) 100 08/07/18 09:46 94 156/91 08/07/18 09:00 98 19 150/92 (111) 98 08/07/18 08:00 2.0 08/07/18 08:00 Nasal Cannula 2.0 Nasal Cannula 2.0 08/07/18 08:00 102 08/07/18 08:00 98.9 102 19 156/96 (116) 98 08/07/18 07:47 Nasal Cannula 2.0 28 08/07/18 07:00 93 19 159/90 (113) 98 08/07/18 06:58 93 20 96 Nasal Cannula 2.0 28 08/07/18 06:48 93 19 99 Nasal Cannula 4.0 36 08/07/18 06:47 Nasal Cannula 4.0 36 08/07/18 06:00 94 20 152/90 (110) 99 08/07/18 05:00 93 19 171/85 (113) 100 08/07/18 04:00 100 08/07/18 04:00 Mechanical Ventilator Mechanical Ventilator 08/07/18 04:00 97.5 102 23 155/100 (118) 100 08/07/18 04:00 4.0 08/07/18 03:00 99 20 133/87 (102) 08/07/18 02:00 103 22 141/83 (102) 96 08/07/18 01:27 87 23 100 Nasal Cannula 4.0 36 08/07/18 01:16 87 22 98 Mechanical Ventilator 30 08/07/18 01:00 97.8 83 20 141/90 (107) 99 08/07/18 00:00 84 08/07/18 00:00 4.0 08/07/18 00:00 89 20 149/86 (107) 99 08/07/18 00:00 Mechanical Ventilator Mechanical Ventilator 08/06/18 23:00 86 21 142/87 (105) 99 08/06/18 22:00 87 22 151/81 (104) 99 General Appearance: no apparent distress, alert EENT: PERRL/EOMI, normal ENT inspection, TMs normal, pharynx normal Neck: non-tender, normal alignment, supple, normal inspection Rhythm: Afib Cardiovascular: normal peripheral pulses, normal rate, arrhythmia Respiratory/Chest: chest wall non-tender, lungs clear, normal breath sounds Abdomen: normal bowel sounds, non tender, soft, no organomegaly Extremities: normal range of motion, non-tender, normal inspection, no calf tenderness 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, no motor/sensory deficits Intake and Output 08/06/18 08/07/18 18:59 06:59 Intake Total 1086.666 ml 1240 ml Output Total 785 ml 1720 ml Balance 301.666 ml -480 ml Intake Oral 0 ml 0 ml Free Water 60 ml IV Total 1086.666 ml 900 ml Tube Feeding 280 ml Output Urine Total 785 ml 1720 ml # Bowel Movements 1 Laboratory Tests Test 08/07/18 09:20 White Blood Count 12.6 K/UL (4.8-10.8) H Red Blood Count 4.38 M/UL (4.70-6.10) L Hemoglobin 12.1 G/DL (14.2-18.0) L Hematocrit 37.6 % (42.0-52.0) L Mean Corpuscular Volume 86 FL (80-99) Mean Corpuscular Hemoglobin 27.7 PG (27.0-31.0) Mean Corpuscular Hemoglobin Concent 32.2 G/DL (32.0-36.0) Red Cell Distribution Width 14.1 % (11.6-14.8) Platelet Count 219 K/UL (150-450) Mean Platelet Volume 6.2 FL (6.5-10.1) L Neutrophils (%) (Auto) 82.6 % (45.0-75.0) H Lymphocytes (%) (Auto) 7.2 % (20.0-45.0) L Monocytes (%) (Auto) 8.5 % (1.0-10.0) Eosinophils (%) (Auto) 0.9 % (0.0-3.0) Basophils (%) (Auto) 0.9 % (0.0-2.0) Sodium Level 142 MMOL/L (136-145) Potassium Level 3.2 MMOL/L (3.5-5.1) L Chloride Level 106 MMOL/L (98-107) Carbon Dioxide Level 23 MMOL/L (21-32) Anion Gap 13 mmol/L (5-15) Blood Urea Nitrogen 18 mg/dL (7-18) Creatinine 1.0 MG/DL (0.55-1.30) Estimat Glomerular Filtration Rate mL/min (>60) Glucose Level 90 MG/DL (74-106) Calcium Level 8.6 MG/DL (8.5-10.1) Richie Trotter MD Aug 07, 2018 21:42
--- NOTE | 2018-08-07 23:31 | Diagnostic Imaging Report ---
APPROVED REPORT CPT Code: 82337 Present Symptoms Comments: Left upper arm swelling LEFT UPPER EXTREMITY: Venous imaging reveals patency of the internal jugular, subclavian, axillary and brachial veins. The cephalic and basilic veins are also patent. Doppler indicates normal spontaneous flow within these venous segments.
--- NOTE | 2018-08-07 23:33 | Diagnostic Imaging Report ---
APPROVED REPORT CPT Code: 87687 Present Symptoms Comments: Hx of DVT left leg RIGHT LEG: Venous imaging reveals a patent deep venous system. There is no evidence of thrombus within the femoral, popliteal or tibial segments. The greater saphenous vein is also within normal limits. Doppler indicates normal spontaneous flow within these segments. LEFT LEG: Venous imaging reveals recanalized chronic thrombus in the distal superficial femoral, popliteal, peroneal and the isolated soleal veins. Remainder of the deep venous system within normal limits. No evidence of thrombus within the common femoral vein. Greater saphenous vein also within normal limits. Doppler indicates normal spontaneous flow within these segments. There is no evidence of acute deep vein thrombosis.
[2018-08-08] VITALS: BP 142/95
[2018-08-08] MEDS: Albuterol/Ipratropium 3ml neb HHN SCH ×4 (01:28→18:54)
[2018-08-08 04:00] VITALS: BP 155/73
--- NOTE | 2018-08-08 07:30 | NUR ---
HAND-OFF: Report given to Ginna Majano RN. Patient in stable condition.
[2018-08-08 08:00] VITALS: BP 138/80
--- NOTE | 2018-08-08 08:10 | NUR ---
NURSE NOTES: received pt in the bed, awake, confused, vital signs stable, no SOB, pt on PA o2 sat 94%, skin warm and dry to touch, tolerate GT feeding well,Park catheter with yellow urine, bed in low position, HOB elevated.
[2018-08-08] MEDS: Pantoprazole Inj IVP SCH (08:26)
[2018-08-08] MEDS: Venlafaxine XR 37.5mg cap ORAL SCH (08:26)
[2018-08-08] MEDS: Nephrovite tab (Rena-Vite) ORAL SCH (08:27)
[2018-08-08] MEDS: Levodopa/Carbidopa 25/100 tab ORAL SCH ×3 (08:27→17:39)
[2018-08-08] MEDS: dilTIAZem HCl CD 240mg cap ORAL SCH (08:27)
[2018-08-08] MEDS: Heparin 5000 units/ml inj SUBQ SCH ×2 (08:30→21:06)
--- NOTE | 2018-08-08 11:43 | NUR ---
NURSE NOTES: wound nurse saw pt, pt has DTI on left lateral foot, sacral stage 2, left hand blister, dr. Thorne notified.
[2018-08-08 12:00] VITALS: BP 135/77
--- NOTE | 2018-08-08 13:55 | NUR ---
NURSE NOTES:WOUND CARE NOTES:Pt presented with non-blanchable erythema with partial thickness pressure injuries to R and L clefts of buttocks and sacrum.Base of wounds moist and viable. Base of scrotum red. Reabsorbing Blood Blister noted to lateral L foot (L)1cm x (W)4.5cm.Periwound pink and blanchable.Both heels are firm and blanchable. Pt also noted to have multiple bullae filled bullae on all 5 phalanges ,and palm of L hand.Single serous filled bullae noted in palm at base of thumb. Open blister noted to dorsal L hand. Tx.Plan:Cleanse Blister dorsal L hand with Saline. Maintain Versatel mesh to wound. Apply Silvasorb gel. Cover wit Optifoam drsg. Change every 7 days and prn. Wash L hand with foam cleanser.Pat dry. Cover with ABD pad. Wrap loosely with Kerlix Daily and prn. Apply Cavilon To blister Lateral L foot. Cover with Optifoam drsg. Change every 7 days and prn. Apply Cavilon Skin Barrier to both heels. Off-load heels with pillow. APM/MARJAN Mattress overlay. Reposition at least every 2hours or as tolerated.
--- NOTE | 2018-08-08 15:39 | Consultation ---
History of Present Illness General Date patient seen: Aug 08, 2018 Chief Complaint: Altered Level of Consciousness Reason for Consultation: Atrial fibrillation Present Illness HPI 88-year-old male with complex past medical history including Parkinson disease, chronic kidney failure, left femur trochanteric fracture, status post open reduction and internal fixation, chronic atrial fibrillation, hyperlipidemia, CVA, renal mass, and GI bleeding, was brought in to [facility] emergency room via paramedics from his [facility] for altered mental status and fever. Patient noted to have wound requiring care during admission. surgery called to evaluate and assist with care and management. patient seen, chart reviewed, patient examined. Allergies: Coded Allergies: MORPHINE (Verified Allergy, Unknown, 03/25/18) PENICILLINS (Verified Allergy, Unknown, 03/05/18) Medication History Scheduled Atorvastatin Calcium* (Lipitor*), 20 MG ORAL BEDTIME Aztreonam (Azactam), 1 EA TOP Q8HR Carbidopa/Levodopa 25-100 Mg* (Sinemet 25-100 Mg Tablet*), 1 TAB ORAL THREE TIMES A DAY, (Reported) Carbidopa/Levodopa 25-100 Mg* (Sinemet 25-100 Mg Tablet*), 1 TAB ORAL THREE TIMES A DAY, (Reported) Diltiazem Hcl* (Cardizem*), 60 MG NG EVERY 6 HOURS Doxycycline Hyclate (Doxy 100), 100 MG IV BID Gabapentin* (Gabapentin*), 100 MG ORAL QHS Pantoprazole* (Protonix*), 40 MG PO DAILY Tamsulosin HCl (Flomax), 0.4 MG ORAL BEDTIME Venlafaxine HCl (Effexor Xr), 37.5 MG ORAL DAILY Venlafaxine Hcl* (Effexor Xr*), 37.5 MG ORAL DAILY, (Reported) Vitamin B Cmplx/Vit C/Folic AC (Nephro-Louisa Tablet), 1 TAB ORAL DAILY, (Reported ) [Digoxin], 0.125 MG ORAL DAILY Scheduled PRN Acetaminophen* (Acetaminophen 325MG Tablet*), 650 MG ORAL Q6H PRN Ondansetron* (Zofran*), 4 MG PO Q4H PRN Tramadol Hcl* (Ultram*), 50 MG ORAL Q8H PRN Miscellaneous Medications Multivits,Ca,Minerals/Iron/FA (Thera M Plus Tablet), 1 EACH PO, (Reported) Patient History Limited by: medical condition History Provided By: Medical Record, PMD Healthcare decision maker MARIE VALDEZ Resuscitation status Full Code Advanced Directive on File No Review of Systems ROS Narrative cannot obtain given medical condition Physical Exam General Appearance: no apparent distress Lines, tubes and drains: peripheral HEENT: mucous membranes moist Neck: normal inspection Respiratory/Chest: no respiratory distress, no accessory muscle use Cardiovascular/Chest: regularly irregular Abdomen: soft, no organomegaly, no mass, feeding tube Extremities: other Skin Exam: other Last 24 Hour Vital Signs Date Time Temp Pulse Resp B/P (MAP) Pulse Ox O2 Delivery O2 Flow Rate FiO2 08/08/18 13:09 86 16 99 Room Air 21 08/08/18 13:00 91 18 96 Room Air 21 08/08/18 12:00 97.9 85 21 135/77 (96) 96 08/08/18 12:00 90 08/08/18 12:00 Room Air Room Air Room Air 08/08/18 08:27 97 138/80 08/08/18 08:00 94 08/08/18 08:00 97.6 97 18 138/80 (99) 93 08/08/18 08:00 Room Air Room Air Room Air 08/08/18 07:15 95 Room Air 21 08/08/18 07:15 Room Air 21 08/08/18 07:15 88 16 98 Room Air 21 08/08/18 07:09 89 16 95 Room Air 21 08/08/18 04:00 Room Air Room Air Room Air 08/08/18 04:00 98.3 96 20 155/73 (100) 94 08/08/18 03:41 84 08/08/18 01:38 80 18 99 Room Air 21 08/08/18 01:28 88 18 95 Room Air 21 08/08/18 00:00 95.5 89 16 142/95 (111) 95 08/08/18 00:00 Room Air Room Air Room Air 08/07/18 23:24 83 08/07/18 20:00 Room Air Room Air Room Air 08/07/18 20:00 98.1 92 18 140/89 (106) 94 08/07/18 19:29 79 18 98 Room Air 21 08/07/18 19:24 81 08/07/18 19:19 94 Room Air 21 08/07/18 19:19 Room Air 21 08/07/18 19:19 78 18 94 Room Air 21 08/07/18 16:00 Room Air 08/07/18 16:00 97.8 88 20 146/86 (106) 95 Intake and Output 08/07/18 08/08/18 19:00 07:00 Intake Total 1856.000 ml 760 ml Output Total 960 ml 1000 ml Balance 896.000 ml -240 ml Free Water 185 ml IV Total 1161.000 ml 540 ml Tube Feeding 440 ml 220 ml Other 70 ml Output Urine Total 960 ml 1000 ml # Bowel Movements 2 2 Height (Feet): 5 Height (Inches): 6.00 Weight (Pounds): 223 Medications Current Medications Medications (Trade) Dose Ordered Sig/Colin Route PRN Reason Start Time Stop Time Status Last Admin Dose Admin Acetaminophen (Tylenol) 650 mg Q6H PRN ORAL Mild Pain/Temp > 100.5 08/07/18 13:00 09/01/18 12:59 Albuterol/ Ipratropium (Albuterol/ Ipratropium) 3 ml Q4H PRN HHN Shortness of Breath 08/07/18 13:00 08/14/18 12:59 Albuterol/ Ipratropium (Albuterol/ Ipratropium) 3 ml Q6HRT HHN 08/07/18 13:00 08/14/18 12:50 08/08/18 13:07 Atorvastatin Calcium (Lipitor) 20 mg BEDTIME ORAL 08/07/18 21:00 09/02/18 20:59 08/07/18 21:27 Carbidopa/Levodopa (Sinemet 25/100) 1 tab THREE TIMES A DAY ORAL 08/07/18 13:00 09/02/18 17:59 08/08/18 13:56 Ceftriaxone Sodium 2 gm/ Dextrose 55 ml @ 110 mls/hr Q24H IVPB 08/07/18 18:00 08/20/18 17:59 08/07/18 18:10 Diltiazem HCl (Cardizem CD) 240 mg DAILY ORAL 08/08/18 09:00 09/02/18 09:59 08/08/18 08:27 Gabapentin (Neurontin) 100 mg QHS ORAL 08/07/18 21:00 09/02/18 20:59 08/07/18 21:27 Heparin Sodium (Porcine) (Heparin 5000 units/ml) 5,000 units EVERY 12 HOURS SUBQ 08/07/18 21:00 09/04/18 20:59 08/08/18 08:30 Linezolid 300 ml @ 300 mls/hr Q12HR IVPB 08/07/18 21:00 08/20/18 20:59 08/08/18 08:28 Lorazepam (Ativan 2mg/ml 1ml) 1 mg Q4H PRN IV For Anxiety 08/07/18 13:03 08/09/18 13:02 Ondansetron HCl (Zofran) 4 mg Q6H PRN IVP Nausea & Vomiting 08/07/18 13:02 09/01/18 13:01 Pantoprazole (Protonix) 40 mg DAILY IVP 08/08/18 09:00 09/02/18 08:59 08/08/18 08:26 Sodium Chloride 1,000 ml @ 20 mls/hr Q24H IV 08/07/18 13:00 09/04/18 11:59 08/08/18 13:56 Tamsulosin HCl (Flomax) 0.4 mg BEDTIME ORAL 08/07/18 21:00 09/02/18 20:59 08/07/18 21:27 Venlafaxine HCl (Effexor-XR) 37.5 mg DAILY ORAL 08/08/18 09:00 09/03/18 08:59 08/08/18 08:26 Vitamin B Complex/ Vit C/Folic Acid (Nephrovite) 1 tab DAILY ORAL 08/08/18 09:00 09/03/18 08:59 08/08/18 08:27 Assessment/Plan Problem List: (1) Left hip pain ICD Codes: M25.552 - Pain in left hip SNOMED: 37151700 (2) Hypokalemia ICD Codes: E87.6 - Hypokalemia SNOMED: 46323443 (3) Fall ICD Codes: W19.XXXA - Unspecified fall, initial encounter SNOMED: 4703297, 939644280 (4) Trochanteric fracture of left femur ICD Codes: S72.102A - Unspecified trochanteric fracture of left femur, initial encounter for closed fracture SNOMED: 07384883 (5) Anemia ICD Codes: D64.9 - Anemia, unspecified SNOMED: 291657800 (6) Dysphagia causing pulmonary aspiration with swallowing ICD Codes: R13.19 - Other dysphagia SNOMED: 00375832 (7) Acute CVA (cerebrovascular accident) ICD Codes: I63.9 - Cerebral infarction, unspecified SNOMED: 738759334, 232894388 (8) Encephalopathy ICD Codes: G93.40 - Encephalopathy, unspecified SNOMED: 54708639 (9) CKD (chronic kidney disease) ICD Codes: N18.9 - Chronic kidney disease, unspecified SNOMED: 868381632 (10) Renal mass, right ICD Codes: N28.89 - Other specified disorders of kidney and ureter SNOMED: 234501235 (11) STUART (acute kidney injury) ICD Codes: N17.9 - Acute kidney failure, unspecified SNOMED: 68839943 (12) Leukocytosis ICD Codes: D72.829 - Elevated white blood cell count, unspecified SNOMED: 605583577, 445221972 (13) Aspiration pneumonia ICD Codes: J69.0 - Pneumonitis due to inhalation of food and vomit SNOMED: 128689571 (14) FTT (failure to thrive) in adult ICD Codes: R62.7 - Adult failure to thrive SNOMED: 968650195 (15) Encounter for respirator [ventilator] dependence during power failure ICD Codes: Z99.12 - Encounter for respirator [ventilator] dependence during power failure SNOMED: 721875027 (16) Airway intubation performed without difficulty ICD Codes: Z78.9 - Other specified health status SNOMED: 312550756 (17) Afib ICD Codes: I48.91 - Unspecified atrial fibrillation SNOMED: 69960795 (18) Acute renal failure ICD Codes: N17.9 - Acute kidney failure, unspecified SNOMED: 71815581 Qualifiers: Qualified Codes: N17.9 - Acute kidney failure, unspecified (19) LLL pneumonia ICD Codes: J18.1 - Lobar pneumonia, unspecified organism SNOMED: 181083996 Qualifiers: Qualified Codes: J18.1 - Lobar pneumonia, unspecified organism (20) Dementia ICD Codes: F03.90 - Unspecified dementia without behavioral disturbance SNOMED: 57410370 Qualifiers: Qualified Codes: G20 - Parkinson's disease; F02.80 - Dementia in other diseases classified elsewhere without behavioral disturbance (21) Sepsis Assessment & Plan: cont abx as per ID trend labs unlikely etiology of infection wounds will monitor and follow with recs ICD Codes: A41.9 - Sepsis, unspecified organism SNOMED: 13760652 Qualifiers: Qualified Codes: A41.9 - Sepsis, unspecified organism (22) Respiratory failure, acute ICD Codes: J96.00 - Acute respiratory failure, unspecified whether with hypoxia or hypercapnia SNOMED: 46336784 Qualifiers: Qualified Codes: J96.01 - Acute respiratory failure with hypoxia; J96.02 - Acute respiratory failure with hypercapnia (23) Acute respiratory failure ICD Codes: J96.00 - Acute respiratory failure, unspecified whether with hypoxia or hypercapnia SNOMED: 19070814 (24) Left arm cellulitis ICD Codes: L03.114 - Cellulitis of left upper limb SNOMED: 234393263 (25) Decubitus skin ulcer Assessment & Plan: Pt presented with non-blanchable erythema with partial thickness pressure injuries to R and L clefts of buttocks and sacrum.Base of wounds moist and viable. Base of scrotum red. Reabsorbing Blood Blister noted to lateral L foot (L)1cm x (W)4.5cm.Periwound pink and blanchable. Both heels are firm and blanchable. Pt also noted to have multiple bullae filled bullae on all 5 phalanges ,and palm of L hand.Single serous filled bullae noted in palm at base of thumb. Open blister noted to dorsal L hand. Tx.Plan: Cleanse Blister dorsal L hand with Saline. Maintain Versatel mesh to wound. Apply Silvasorb gel. Cover with Optifoam drsg. Change every 7 days and prn. Wash L hand with foam cleanser.Pat dry. Cover with ABD pad. Wrap loosely with Kerlix Daily and prn. Apply Cavilon To blister Lateral L foot. Cover with Optifoam drsg. Change every 7 days and prn. Apply Cavilon Skin Barrier to both heels. Off-load heels with pillow. APM/MARJAN Mattress overlay. Reposition at least every 2hours or as tolerated. ICD Codes: L89.90 - Pressure ulcer of unspecified site, unspecified stage SNOMED: 602516511 Jakub Whitman Aug 08, 2018 15:39
[2018-08-08 16:00] VITALS: BP 137/86
--- NOTE | 2018-08-08 16:00 | NUR ---
NURSE NOTES: vital signs stable, tolerate feeding well, no respiratory distress, continue monitoring.
--- NOTE | 2018-08-08 16:11 | General Progress Note ---
Assessment/Plan Status: stable Assessment: 1. Acute Respiratory failure - In [facility]. Pulm following. on tube feeding. 2. Asp Pneumonia Cont IV ABX per ID. improved. follow cultures. 3. sepsis - Cont IV ABX meripenem and Vanco per ID. improved. 4. 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 5. Parkinson dementia - cont home meds. 6. Chronic Lt leg Popliteal thrombosis - off anticoagulation due to high risk of bleeding and previous hx of GI bleeding. 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 7. Chronic kidney disease - stable. 8. Hx of renal mass - family refused the work up last admission. currently DNR. 9. Hx of CVA with one sided hemiplegia 10. Depression - cont home meds. 11. Neuropathy - stable. 12. Hyperlipidemia - cont home med. Subjective Date patient seen: Aug 08, 2018 Time patient seen: 15:30 Constitutional: Reports: weakness HEENT: Reports: no symptoms Cardiovascular: Reports: no symptoms Respiratory: Reports: no symptoms Gastrointestinal/Abdominal: Reports: no symptoms Genitourinary: Reports: no symptoms Neurologic/Psychiatric: Reports: no symptoms Endocrine: Reports: no symptoms Hematologic/Lymphatic: Reports: no symptoms Allergies: Coded Allergies: MORPHINE (Verified Allergy, Unknown, 03/25/18) PENICILLINS (Verified Allergy, Unknown, 03/05/18) Subjective He is awake and doing well. Afebrile. No sob or chest pain. Objective Last 24 Hour Vital Signs Date Time Temp Pulse Resp B/P (MAP) Pulse Ox O2 Delivery O2 Flow Rate FiO2 08/08/18 16:00 Room Air Room Air Room Air 08/08/18 13:09 86 16 99 Room Air 21 08/08/18 13:00 91 18 96 Room Air 21 08/08/18 12:00 97.9 85 21 135/77 (96) 96 08/08/18 12:00 90 08/08/18 12:00 Room Air Room Air Room Air 08/08/18 08:27 97 138/80 08/08/18 08:00 94 08/08/18 08:00 97.6 97 18 138/80 (99) 93 08/08/18 08:00 Room Air Room Air Room Air 08/08/18 07:15 95 Room Air 21 08/08/18 07:15 Room Air 21 08/08/18 07:15 88 16 98 Room Air 21 08/08/18 07:09 89 16 95 Room Air 21 08/08/18 04:00 Room Air Room Air Room Air 08/08/18 04:00 98.3 96 20 155/73 (100) 94 08/08/18 03:41 84 08/08/18 01:38 80 18 99 Room Air 21 08/08/18 01:28 88 18 95 Room Air 21 08/08/18 00:00 95.5 89 16 142/95 (111) 95 08/08/18 00:00 Room Air Room Air Room Air 08/07/18 23:24 83 08/07/18 20:00 Room Air Room Air Room Air 08/07/18 20:00 98.1 92 18 140/89 (106) 94 08/07/18 19:29 79 18 98 Room Air 21 08/07/18 19:24 81 08/07/18 19:19 94 Room Air 21 08/07/18 19:19 Room Air 21 08/07/18 19:19 78 18 94 Room Air 21 Intake and Output 08/07/18 08/08/18 19:00 07:00 Intake Total 1856.000 ml 760 ml Output Total 960 ml 1000 ml Balance 896.000 ml -240 ml Free Water 185 ml IV Total 1161.000 ml 540 ml Tube Feeding 440 ml 220 ml Other 70 ml Output Urine Total 960 ml 1000 ml # Bowel Movements 2 2 Height (Feet): 5 Height (Inches): 6.00 Weight (Pounds): 223 General Appearance: alert Neck: non-tender, supple Cardiovascular: normal rate, regular rhythm Respiratory/Chest: lungs clear, normal breath sounds, no respiratory distress Abdomen: normal bowel sounds, non tender, soft Extremities: non-tender Edema: no edema noted Arm (L), no edema noted Arm (R), no edema noted Leg (L), no edema noted Leg (R), no edema noted Pedal (L), no edema noted Pedal (R), no edema noted Generalized Neurologic: alert, responsive Skin: warm/dry Lymphatic: normal anterior cervical (L), normal anterior cervical (R), normal posterior cervical (L), normal posterior cervical (R), normal submandibular (L) , normal submandibular (R), normal supraclavicular (L), normal supraclavicular ( R), normal axillary (L), normal axillary (R), normal inguinal (L), normal inguinal (R), normal other Shelby Arrington MD Aug 08, 2018 16:11
--- NOTE | 2018-08-08 17:18 | Infectious Diseases Prog Note ---
Assessment/Plan Problems: (1) LLL pneumonia Assessment & Plan: suspect aspiration, on zyvox and ceftriaxone empirically . aspiration precaution (2) Left arm cellulitis Assessment & Plan: suspect strep and staph related, complicated with blisters, already on wide spectrum antibiotics , keep arm elevated while in bed, venous doppler is negative for DVT (3) Sepsis Assessment & Plan: due to the above, with STAPH EPIDERMIDIS and STREP GROUP A , source? left hand cellulitis VS pneumonia VS sacral pressure wound , continue zyvox and ceftriaxone for two weeks . ECHO showed no valve vegetations . repeat blood culture to confirm clearance (4) CKD (chronic kidney disease) Assessment & Plan: continue hydration and renally dosed meds as per pharmacy (5) Renal mass, right Assessment & Plan: poor candidate for surgery (6) Encephalopathy Assessment & Plan: suspect metabolic due to the above, continue hydration with antibiotics , avoid sedatives (7) Acute respiratory failure Assessment & Plan: due to the above , intubated on mechanical ventilation, monitor ABG, and CXR , pulmonary is following Subjective ROS Limited/Unobtainable: Yes Allergies: Coded Allergies: MORPHINE (Verified Allergy, Unknown, 03/25/18) PENICILLINS (Verified Allergy, Unknown, 03/05/18) Subjective He was awake and responsive , was extubated on mechanical ventilation , afebrile. with blisters in his left hand Objective Vital Signs Last 24 Hour Vital Signs Date Time Temp Pulse Resp B/P (MAP) Pulse Ox O2 Delivery O2 Flow Rate FiO2 08/08/18 16:00 98 08/08/18 16:00 Room Air Room Air Room Air 08/08/18 16:00 97.8 98 22 137/86 (103) 97 08/08/18 13:09 86 16 99 Room Air 21 08/08/18 13:00 91 18 96 Room Air 21 08/08/18 12:00 97.9 85 21 135/77 (96) 96 08/08/18 12:00 90 08/08/18 12:00 Room Air Room Air Room Air 08/08/18 08:27 97 138/80 08/08/18 08:00 94 08/08/18 08:00 97.6 97 18 138/80 (99) 93 08/08/18 08:00 Room Air Room Air Room Air 08/08/18 07:15 95 Room Air 21 08/08/18 07:15 Room Air 21 08/08/18 07:15 88 16 98 Room Air 21 08/08/18 07:09 89 16 95 Room Air 21 08/08/18 04:00 Room Air Room Air Room Air 08/08/18 04:00 98.3 96 20 155/73 (100) 94 08/08/18 03:41 84 08/08/18 01:38 80 18 99 Room Air 21 08/08/18 01:28 88 18 95 Room Air 21 08/08/18 00:00 95.5 89 16 142/95 (111) 95 08/08/18 00:00 Room Air Room Air Room Air 08/07/18 23:24 83 08/07/18 20:00 Room Air Room Air Room Air 08/07/18 20:00 98.1 92 18 140/89 (106) 94 08/07/18 19:29 79 18 98 Room Air 21 08/07/18 19:24 81 08/07/18 19:19 94 Room Air 21 08/07/18 19:19 Room Air 21 08/07/18 19:19 78 18 94 Room Air 21 Height (Feet): 5 Height (Inches): 6.00 Weight (Pounds): 223 General Appearance: WD/WN, no acute distress HEENT: normocephalic, atraumatic, anicteric, mucous membranes moist, EOMI, pharynx normal, supple, no JVD Respiratory/Chest: chest wall non-tender, no respiratory distress, no accessory muscle use, decreased breath sounds, crackles/rales Cardiovascular: normal peripheral pulses, normal rate, regular rhythm, no gallop/murmur, no JVD Abdomen: normal bowel sounds, soft, non tender, no organomegaly, non distended , no mass, no scars Extremities: no cyanosis, no clubbing Skin: no rash, no lesions, ulcers, other - left hand blisters Neurologic/Psychiatric: alert, responsive Lymphatic: no neck adenopathy, no groin adenopathy Musculoskeletal: normal muscle bulk, no effusion Microbiology Date/Time Source Procedure Growth Status 08/06/18 21:55 Blood Blood Culture - Preliminary NO GROWTH AFTER 24 HOURS Resulted 08/06/18 21:45 Blood Blood Culture - Preliminary NO GROWTH AFTER 24 HOURS Resulted Current Medications Medications (Trade) Dose Ordered Sig/Colin Route PRN Reason Start Time Stop Time Status Last Admin Dose Admin Acetaminophen (Tylenol) 650 mg Q6H PRN ORAL Mild Pain/Temp > 100.5 08/07/18 13:00 09/01/18 12:59 Albuterol/ Ipratropium (Albuterol/ Ipratropium) 3 ml Q4H PRN HHN Shortness of Breath 08/07/18 13:00 08/14/18 12:59 Albuterol/ Ipratropium (Albuterol/ Ipratropium) 3 ml Q6HRT HHN 08/07/18 13:00 08/14/18 12:50 08/08/18 13:07 Atorvastatin Calcium (Lipitor) 20 mg BEDTIME ORAL 08/07/18 21:00 09/02/18 20:59 08/07/18 21:27 Carbidopa/Levodopa (Sinemet 25/100) 1 tab THREE TIMES A DAY ORAL 08/07/18 13:00 09/02/18 17:59 08/08/18 13:56 Ceftriaxone Sodium 2 gm/ Dextrose 55 ml @ 110 mls/hr Q24H IVPB 08/07/18 18:00 08/20/18 17:59 08/07/18 18:10 Diltiazem HCl (Cardizem CD) 240 mg DAILY ORAL 08/08/18 09:00 09/02/18 09:59 08/08/18 08:27 Gabapentin (Neurontin) 100 mg QHS ORAL 08/07/18 21:00 09/02/18 20:59 08/07/18 21:27 Heparin Sodium (Porcine) (Heparin 5000 units/ml) 5,000 units EVERY 12 HOURS SUBQ 08/07/18 21:00 09/04/18 20:59 08/08/18 08:30 Linezolid 300 ml @ 300 mls/hr Q12HR IVPB 08/07/18 21:00 08/20/18 20:59 08/08/18 08:28 Lorazepam (Ativan 2mg/ml 1ml) 1 mg Q4H PRN IV For Anxiety 08/07/18 13:03 08/09/18 13:02 Ondansetron HCl (Zofran) 4 mg Q6H PRN IVP Nausea & Vomiting 08/07/18 13:02 5/12/19 13:01 Pantoprazole (Protonix) 40 mg DAILY IVP 08/08/18 09:00 09/02/18 08:59 08/08/18 08:26 Sodium Chloride 1,000 ml @ 20 mls/hr Q24H IV 08/07/18 13:00 09/04/18 11:59 08/08/18 13:56 Tamsulosin HCl (Flomax) 0.4 mg BEDTIME ORAL 08/07/18 21:00 09/02/18 20:59 08/07/18 21:27 Venlafaxine HCl (Effexor-XR) 37.5 mg DAILY ORAL 08/08/18 09:00 09/03/18 08:59 08/08/18 08:26 Vitamin B Complex/ Vit C/Folic Acid (Nephrovite) 1 tab DAILY ORAL 08/08/18 09:00 09/03/18 08:59 08/08/18 08:27 Srini Sam M.D. Aug 08, 2018 17:18
[2018-08-08] MEDS: cefTRIAXone 2 GM in D5W 55 ML IVPB SCH (17:39)
--- NOTE | 2018-08-08 19:10 | NUR ---
NURSE NOTES: Pt report received form Ginna ORTEGA. Pt is resting comfortably in bed with no distress noted. Pt is alert and oriented times one. Pt has a telemetry monitor on and is working properly with no cardiac distress noted. Pt is on room air and is saturating well with no respiratory distress. Pt also has a G tube that is running Glucerna 1.5 at 40cc/hr, no distress noted. Pt has a R hand 20G that is able to flush and is asymptomatic. All safety precautions are in place, such as side rails up X3, bed is in lowest position, call light within easy reach, and bed alarm is active. Will continue plan of care.
--- NOTE | 2018-08-08 19:31 | NUR ---
HAND-OFF: Report given to MIKE ORTEGA, NO DISTRESS..
[2018-08-08 20:00] VITALS: BP 132/81
[2018-08-08] MEDS: Tamsulosin 0.4mg cap ORAL SCH (21:03)
[2018-08-08] MEDS: Atorvastatin 20mg tab ORAL SCH (21:03)
--- NOTE | 2018-08-08 21:21 | Pulmonolgy Critical Care Note ---
Critical Care - Asmt/Plan Assessment/Plan: Pulmonary CCM Progress Note Critical Care - Asmt/Plan Problems: (1) Sepsis Assessment & Plan: HEMODYNAMICALLY STABLE (2) Respiratory failure, acute Assessment & Plan: EXTUBATED 08/06 (3) Airway intubation performed without difficulty Assessment & Plan: EXTUBATED 08/06 (4) LLL pneumonia Assessment & Plan: CLINICALLY IMPROVED (5) Left arm cellulitis (6) STUART (acute kidney injury) Assessment & Plan: RESOLVED (7) CKD (chronic kidney disease) (8) Dementia (9) Leukocytosis (10) FTT (failure to thrive) in adult (11) Afib Critical Care - Objective Vital Signs Noted Status: awake Condition: critical HEENT: atraumatic, normocephalic Lungs: CTAB Heart: HR/BP stable, irregular Abdomen: soft, non-tender, active bowel sounds Extremities: no C/C/E Micro: Respiratory: monitor respiratory status, O2, , HHN's Cardiac: other - Dilt, cards recs, off A/C 2/2 bleeding risk (prior GIB), ? 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, ID Discussed with: nurses, consultants, other - DNAR Critical Care - Subjective ROS Limited/Unobtainable: Yes Intubation Day: extubated Interval Events: 100% on 2L Awake follows basic commands No cough no SOB no wheezing no FC TF's started Condition: stable IV Access: peripheral EKG Rhythm: Atrial Fibrillation FI02: 28 Vent Support Breath Rate: 16 Vent Support Mode: CPAP Vent Tidal Volume: 500 Sputum Amount: None PEEP: 5.0 PIP: 14 Secretions: None Fluids: NS@50 Tube Feeding Amount: 40 Laboratory Tests Test 08/07/18 09:20 White Blood Count 12.6 K/UL (4.8-10.8) H Red Blood Count 4.38 M/UL (4.70-6.10) L Hemoglobin 12.1 G/DL (14.2-18.0) L Hematocrit 37.6 % (42.0-52.0) L Mean Corpuscular Volume 86 FL (80-99) Mean Corpuscular Hemoglobin 27.7 PG (27.0-31.0) Mean Corpuscular Hemoglobin Concent 32.2 G/DL (32.0-36.0) Red Cell Distribution Width 14.1 % (11.6-14.8) Platelet Count 219 K/UL (150-450) Mean Platelet Volume 6.2 FL (6.5-10.1) L Neutrophils (%) (Auto) 82.6 % (45.0-75.0) H Lymphocytes (%) (Auto) 7.2 % (20.0-45.0) L Monocytes (%) (Auto) 8.5 % (1.0-10.0) Eosinophils (%) (Auto) 0.9 % (0.0-3.0) Basophils (%) (Auto) 0.9 % (0.0-2.0) Sodium Level 142 MMOL/L (136-145) Potassium Level 3.2 MMOL/L (3.5-5.1) L Chloride Level 106 MMOL/L (98-107) Carbon Dioxide Level 23 MMOL/L (21-32) Anion Gap 13 mmol/L (5-15) Blood Urea Nitrogen 18 mg/dL (7-18) Creatinine 1.0 MG/DL (0.55-1.30) Estimat Glomerular Filtration Rate mL/min (>60) Glucose Level 90 MG/DL (74-106) Calcium Level 8.6 MG/DL (8.5-10.1) Critical Care - Objective Last 24 Hour Vital Signs Date Time Temp Pulse Resp B/P (MAP) Pulse Ox O2 Delivery O2 Flow Rate FiO2 08/08/18 18:55 94 Room Air 21 08/08/18 18:55 Room Air 21 08/08/18 18:55 82 18 94 Room Air 21 08/08/18 16:00 98 08/08/18 16:00 Room Air Room Air Room Air 08/08/18 16:00 97.8 98 22 137/86 (103) 97 08/08/18 13:09 86 16 99 Room Air 21 08/08/18 13:00 91 18 96 Room Air 21 08/08/18 12:00 97.9 85 21 135/77 (96) 96 08/08/18 12:00 90 08/08/18 12:00 Room Air Room Air Room Air 08/08/18 08:27 97 138/80 08/08/18 08:00 94 08/08/18 08:00 97.6 97 18 138/80 (99) 93 08/08/18 08:00 Room Air Room Air Room Air 08/08/18 07:15 95 Room Air 21 08/08/18 07:15 Room Air 21 08/08/18 07:15 88 16 98 Room Air 21 08/08/18 07:09 89 16 95 Room Air 21 08/08/18 04:00 Room Air Room Air Room Air 08/08/18 04:00 98.3 96 20 155/73 (100) 94 08/08/18 03:41 84 08/08/18 01:38 80 18 99 Room Air 21 08/08/18 01:28 88 18 95 Room Air 21 08/08/18 00:00 95.5 89 16 142/95 (111) 95 08/08/18 00:00 Room Air Room Air Room Air 08/07/18 23:24 83 Micro: Microbiology Date/Time Source Procedure Growth Status 08/06/18 21:55 Blood Blood Culture - Preliminary NO GROWTH AFTER 24 HOURS Resulted 08/06/18 21:45 Blood Blood Culture - Preliminary NO GROWTH AFTER 24 HOURS Resulted Critical Care - Subjective ROS Limited/Unobtainable: No FI02: 21 Vent Support Breath Rate: 16 Vent Support Mode: CPAP Vent Tidal Volume: 500 Sputum Amount: None PEEP: 5.0 PIP: 14 Tube Feeding Amount: 40 I&O: Intake and Output 08/07/18 08/08/18 19:00 07:00 Intake Total 1856.000 ml 760 ml Output Total 960 ml 1000 ml Balance 896.000 ml -240 ml Free Water 185 ml IV Total 1161.000 ml 540 ml Tube Feeding 440 ml 220 ml Other 70 ml Output Urine Total 960 ml 1000 ml # Bowel Movements 2 2 Richie Grove MD Aug 08, 2018 21:21
[2018-08-09] VITALS: BP 137/85
[2018-08-09] MEDS: Albuterol/Ipratropium 3ml neb HHN SCH ×4 (01:29→19:02)
[2018-08-09 04:00] VITALS: BP 141/87
[2018-08-09 05:39] LABS: BASOPHILS % (AUTO) 0.9 % (0.0-2.0); EOSINOPHILS % (AUTO) 4.4 % (0.0-3.0); HEMATOCRIT 35.9 % (42.0-52.0); HEMOGLOBIN 11.8 G/DL (14.2-18.0); LYMPHOCYTES % (AUTO) 11.9 % (20.0-45.0); MEAN CORPUSCULAR VOLUME 86 FL (80-99); MONOCYTES % (AUTO) 8.9 % (1.0-10.0); NEUTROPHILS % (AUTO) 73.9 % (45.0-75.0); PLATELET COUNT 237 K/UL (150-450); RED BLOOD COUNT 4.17 M/UL (4.70-6.10); RED CELL DISTRIBUTION WIDTH 14.5 % (11.6-14.8); WHITE BLOOD COUNT 11.1 K/UL (4.8-10.8)
[2018-08-09 06:03] LABS: ALANINE AMINOTRANSFERASE 15 U/L (12-78); ALBUMIN 2.1 G/DL (3.4-5.0); ALBUMIN/GLOBULIN RATIO 0.5 (1.0-2.7); ALKALINE PHOSPHATASE 85 U/L (46-116); ANION GAP 8 mmol/L (5-15); ASPARTATE AMINO TRANSFERASE 16 U/L (15-37); BILIRUBIN,TOTAL 0.3 MG/DL (0.2-1.0); BLOOD UREA NITROGEN 19 mg/dL (7-18); CALCIUM 8.7 MG/DL (8.5-10.1); CARBON DIOXIDE 28 MMOL/L (21-32); CHLORIDE 104 MMOL/L (98-107); CREATININE 1.1 MG/DL (0.55-1.30); POTASSIUM 3.6 MMOL/L (3.5-5.1); SODIUM 140 MMOL/L (136-145)
--- NOTE | 2018-08-09 07:05 | NUR ---
HAND-OFF: Report given to Char ORTEGA.
[2018-08-09 08:00] VITALS: BP 135/85
--- NOTE | 2018-08-09 08:00 | NUR ---
NURSE NOTES: Received report from Zacarias ORTEGA. Pt is asleep in semi-martinez's position, awakens to voice/name, oriented x1. Pt is on room air with no respiratory distress, with O2sat 94-100%. GT in place with feeding Glucerna 1.5 infusing at 50ml/hour. Pt is tolerating feeding with no residual or episodes of nausea/vomiting. IV access on right hand #20G infusing NS at 20mL/hour. Park in place, draining clear/yellow urine. Bed is locked with three side rails up and call light withi Addendum: 08/09/18 at 1120 by FRANCINE MAS RN Addition to previous note: Call light is within easy reach. Skin has dressings in place on sacral, left foot and left hand areas, dry/intact. Pt is on P200 mattress. Will continue to monitor pt and follow plan of care per MD orders and protocol.
[2018-08-09] MEDS: dilTIAZem HCl CD 240mg cap ORAL SCH (09:00)
[2018-08-09] MEDS: Nephrovite tab (Rena-Vite) ORAL SCH (10:04)
[2018-08-09] MEDS: Venlafaxine XR 37.5mg cap ORAL SCH (10:04)
[2018-08-09] MEDS: Levodopa/Carbidopa 25/100 tab ORAL SCH (10:04)
[2018-08-09] MEDS: Pantoprazole Inj IVP SCH (10:04)
[2018-08-09] MEDS: Heparin 5000 units/ml inj SUBQ SCH ×2 (10:08→20:42)
--- NOTE | 2018-08-09 10:35 | NUR ---
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 ENCEPHALOPATHY . LLL PNEUMONIA VS: BP 141/87, P 95, T 98.6, RR 22, SpO2 94 WBC 11.6, RBC 4.17, Hgb 11.8, Hct 35.9, BUN 19 IS: DILTIAZEM 240mg PROTONIX 40mg IVP VENLAFAXINE HCI 37.5 LINEZOLID 300ml IVPB LIPITOR 20mg GABAPENTIN 100mg HEPARIN SUBQ FLOMAX 0.4mg CEFTRIAXONE 55ml IVPB NS x1L IV CARBIDOPA/LEVODOPA 1tab ALBUTEROL 3ml HHN SDU STATUS
--- NOTE | 2018-08-09 11:30 | NUR ---
TRANSFER TO FLOOR: Patient transferred to Tele Rm 203-2 from SDU Rm 235-1 via hospital bed as ordered. Report given to Adrian ORTEGA. Pt has no belonging's with him, belonging's list was signed with the receiving nurse. Pt was transferred in stable condition. Assessed skin with the receiving nurse, photos taken. Endorsed plan of care.
[2018-08-09 12:00] VITALS: BP 150/83
[2018-08-09] MEDS ORDERED: Albuterol/Ipratropium 3ml neb HHN PRN (12:04)
[2018-08-09] MEDS ORDERED: LORazepam Inj 2mg/ml 1ml IV PRN (12:05)
--- NOTE | 2018-08-09 12:14 | NUR ---
NURSE NOTES: Received report from SHANNON Pardo. Pt is awake in semi-martinez's position and alert to name and oriented x1. Pt is on room air with no respiratory distress, with O2 sat at 94%. Patient is on heart monitor with controlled afibrillation at 92. GT in place with feeding Glucerna 1.5 infusing at 50ml/hour. Pt is tolerating feeding with no residual. IV access on right hand #20G infusing NS at 20mL/hour. Park in place, draining clear/yellow urine. Bed is locked with three side rails up and call light within easy reach. Skin has dressings in place on sacral, left foot and left hand areas, dry/intact. Pt is on P200 mattress. Will continue to monitor pt and follow plan of care per MD orders and protocol.
[2018-08-09] MEDS ORDERED: Levodopa/Carbidopa 25/100 tab ORAL SCH (13:00)
--- NOTE | 2018-08-09 13:46 | NUR ---
RD ASSESSMENT & RECOMMENDATIONS SEE CARE ACTIVITY FOR COMPLETE ASSESSMENT DAILY ESTIMATED NEEDS: Needs based on Obese, wound, bedbound, 79kg adj 22-25 kcals/kg 0645-3058 total kcals 1.25-1.5 g protein/kg 99-119 g total protein 20-25 mL/kg 6735-3061 total fluid mLs NUTRITION DIAGNOSIS: * Swallowing difficulty R/T dysphagia, h/o CVA w/ hemiplegia, evidenced by s/p recent PEG placement, now extubated, on room air. * Increased protein needs r/t wound healing as evidenced by pt partial thickness wounds @ R and L clefts of buttocks and sacrum CURRENT TF:Glucerna 1.5 @50ml /hr x24 hrs ENTERAL NUTRITION RECOMMENDATIONS: Glucerna 1.5 @50ml /hr x24 hrs to provide 1200ml, 1800 kcal, 99g prot, 911ml free H2O - Maintain current TF - Flush per MD/ HOB over 30 degrees ADDITIONAL RECOMMENDATIONS: 1) Monitor BGs, need for SSI 2) Check A1C for eval of glycemic control- prev episodes of hyperglycemia 3) Sacral wound: Add via GT-> MARTHA BID + Vit C 250mg daily 4) Recalibrate bed scale: conflicting weights EMR wt: 220#, Bed scale wt: 238# 5) Check lytes daily, replete as needed .
--- NOTE | 2018-08-09 14:18 | NUR ---
NURSE NOTES: 14:10- Spoke to Dr. Arrington about converting Po medications to g-tube. Received orders. Dr. Arrington states he will see verify medications with pharmacy. 14:15- Received call from pharmacy with reminder that Tamsulosin can't be crushed and Effexor can't be crushed. Notify pharmacy that Dr. Arrington is aware and will speak with them. For now, both medications will be on hold until verification is completed.
--- NOTE | 2018-08-09 14:27 | Surgery Progress Note ---
Surgery Progress Note Subjective Additional Comments no acute events. more comfortable today. dressings intact. Objective Last 24 Hour Vital Signs Date Time Temp Pulse Resp B/P (MAP) Pulse Ox O2 Delivery O2 Flow Rate FiO2 08/09/18 13:54 90 20 99 Room Air 21 08/09/18 13:46 84 20 93 Room Air 21 08/09/18 12:00 98.0 86 22 150/83 (105) 94 08/09/18 11:36 88 08/09/18 09:00 88 135/85 08/09/18 08:08 86 16 99 Room Air 21 08/09/18 08:00 Room Air Room Air Room Air 08/09/18 08:00 98.4 88 22 135/85 (102) 97 08/09/18 07:57 95 Room Air 21 08/09/18 07:57 82 18 94 Room Air 21 08/09/18 07:57 Room Air 21 08/09/18 07:42 99 08/09/18 04:00 Room Air Room Air Room Air 08/09/18 04:00 98.6 95 19 141/87 (105) 100 08/09/18 04:00 92 08/09/18 01:39 78 18 98 Room Air 21 08/09/18 01:29 83 18 93 Room Air 21 08/09/18 00:00 94 08/09/18 00:00 Room Air Room Air Room Air 08/09/18 00:00 98.5 87 24 137/85 (102) 95 08/08/18 20:00 102 08/08/18 20:00 Room Air Room Air Room Air 08/08/18 20:00 98.3 113 24 132/81 (98) 94 08/08/18 19:05 78 18 98 Room Air 21 08/08/18 18:55 94 Room Air 21 08/08/18 18:55 Room Air 21 08/08/18 18:55 82 18 94 Room Air 21 08/08/18 16:00 98 08/08/18 16:00 Room Air Room Air Room Air 08/08/18 16:00 97.8 98 22 137/86 (103) 97 I&O Intake and Output 08/08/18 08/09/18 19:00 07:00 Intake Total 1155 ml 1280 ml Output Total 550 ml 600 ml Balance 605 ml 680 ml Free Water 150 ml 150 ml IV Total 595 ml 540 ml Tube Feeding 410 ml 590 ml Output Urine Total 550 ml 600 ml # Bowel Movements 4 2 Dressing: dry Wound: other Drains: other Cardiovascular: RSR Respiratory: decreased breath sounds Abdomen: soft, present bowel sounds, non-distended Extremities: edema, tenderness Laboratory Tests Test 08/09/18 03:15 White Blood Count 11.1 K/UL (4.8-10.8) H Red Blood Count 4.17 M/UL (4.70-6.10) L Hemoglobin 11.8 G/DL (14.2-18.0) L Hematocrit 35.9 % (42.0-52.0) L Mean Corpuscular Volume 86 FL (80-99) Mean Corpuscular Hemoglobin 28.4 PG (27.0-31.0) Mean Corpuscular Hemoglobin Concent 32.9 G/DL (32.0-36.0) Red Cell Distribution Width 14.5 % (11.6-14.8) Platelet Count 237 K/UL (150-450) Mean Platelet Volume 6.2 FL (6.5-10.1) L Neutrophils (%) (Auto) 73.9 % (45.0-75.0) Lymphocytes (%) (Auto) 11.9 % (20.0-45.0) L Monocytes (%) (Auto) 8.9 % (1.0-10.0) Eosinophils (%) (Auto) 4.4 % (0.0-3.0) H Basophils (%) (Auto) 0.9 % (0.0-2.0) Erythrocyte Sedimentation Rate 71 MM/HR (0-20) H Sodium Level 140 MMOL/L (136-145) Potassium Level 3.6 MMOL/L (3.5-5.1) Chloride Level 104 MMOL/L (98-107) Carbon Dioxide Level 28 MMOL/L (21-32) Anion Gap 8 mmol/L (5-15) Blood Urea Nitrogen 19 mg/dL (7-18) H Creatinine 1.1 MG/DL (0.55-1.30) Estimat Glomerular Filtration Rate mL/min (>60) Glucose Level 155 MG/DL (74-106) H Calcium Level 8.7 MG/DL (8.5-10.1) Total Bilirubin 0.3 MG/DL (0.2-1.0) Aspartate Amino Transf (AST/SGOT) 16 U/L (15-37) Alanine Aminotransferase (ALT/SGPT) 15 U/L (12-78) Alkaline Phosphatase 85 U/L (46-116) C-Reactive Protein, Quantitative 7.6 mg/dL (0.00-0.90) H Total Protein 6.3 G/DL (6.4-8.2) L Albumin 2.1 G/DL (3.4-5.0) L Globulin 4.2 g/dL Albumin/Globulin Ratio 0.5 (1.0-2.7) L Plan Problems: (1) Left hip pain (2) Hypokalemia (3) Fall (4) Trochanteric fracture of left femur (5) Anemia (6) Dysphagia causing pulmonary aspiration with swallowing (7) Acute CVA (cerebrovascular accident) (8) Encephalopathy (9) CKD (chronic kidney disease) (10) Renal mass, right (11) STUART (acute kidney injury) (12) Leukocytosis (13) Aspiration pneumonia (14) FTT (failure to thrive) in adult (15) Encounter for respirator [ventilator] dependence during power failure (16) Airway intubation performed without difficulty (17) Afib (18) Acute renal failure (19) LLL pneumonia (20) Dementia (21) Sepsis Assessment & Plan: cont abx as per ID trend labs unlikely etiology of infection wounds will monitor and follow with recs (22) Respiratory failure, acute (23) Acute respiratory failure (24) Left arm cellulitis (25) Decubitus skin ulcer Assessment & Plan: Pt presented with non-blanchable erythema with partial thickness pressure injuries to R and L clefts of buttocks and sacrum.Base of wounds moist and viable. Base of scrotum red. Reabsorbing Blood Blister noted to lateral L foot (L)1cm x (W)4.5cm.Periwound pink and blanchable. Both heels are firm and blanchable. Pt also noted to have multiple bullae filled bullae on all 5 phalanges ,and palm of L hand.Single serous filled bullae noted in palm at base of thumb. Open blister noted to dorsal L hand. in evaluating hand after 24hrs seems like possible sheering injury, possible patient holding onto something? will continue to care for wounds Tx.Plan: Cleanse Blister dorsal L hand with Saline. Maintain Versatel mesh to wound. Apply Silvasorb gel. Cover with Optifoam drsg. Change every 7 days and prn. Wash L hand with foam cleanser.Pat dry. Cover with ABD pad. Wrap loosely with Kerlix Daily and prn. Apply Cavilon To blister Lateral L foot. Cover with Optifoam drsg. Change every 7 days and prn. Apply Cavilon Skin Barrier to both heels. Off-load heels with pillow. APM/MARJAN Mattress overlay. Reposition at least every 2hours or as tolerated. Jakub Whitman Aug 09, 2018 14:27
--- NOTE | 2018-08-09 14:49 | General Progress Note ---
Assessment/Plan Status: stable Assessment: 1. Acute Respiratory failure - in tele. Pulm following. on tube feeding. 2. Asp Pneumonia Cont IV ABX per ID. improved. follow cultures. 3. sepsis - Cont IV ABX meripenem and Vanco per ID. improved. 4. Chronic A fib - rate controlled - narcotics agent is following. 5. Parkinson dementia - cont home meds. 6. Chronic Lt leg Popliteal thrombosis - off anticoagulation due to high risk of bleeding and previous hx of GI bleeding. 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 7. Chronic kidney disease - stable. 8. Hx of renal mass - family refused the work up last admission. currently DNR. 9. Hx of CVA with one sided hemiplegia 10. Depression - cont home meds. 11. Neuropathy - stable. 12. Hyperlipidemia - cont home med. Subjective Date patient seen: Aug 09, 2018 Time patient seen: 14:00 Constitutional: Reports: weakness HEENT: Reports: no symptoms Cardiovascular: Reports: irregular heart rate Respiratory: Reports: no symptoms Gastrointestinal/Abdominal: Reports: no symptoms Genitourinary: Reports: no symptoms Neurologic/Psychiatric: Reports: no symptoms Endocrine: Reports: no symptoms Hematologic/Lymphatic: Reports: no symptoms Allergies: Coded Allergies: MORPHINE (Verified Allergy, Unknown, 03/25/18) PENICILLINS (Verified Allergy, Unknown, 03/05/18) Subjective He is awake and doing well. Afebrile. No sob or chest pain. Objective Last 24 Hour Vital Signs Date Time Temp Pulse Resp B/P (MAP) Pulse Ox O2 Delivery O2 Flow Rate FiO2 08/09/18 13:54 90 20 99 Room Air 21 08/09/18 13:46 84 20 93 Room Air 21 08/09/18 12:00 98.0 86 22 150/83 (105) 94 08/09/18 11:36 88 08/09/18 09:00 88 135/85 08/09/18 08:08 86 16 99 Room Air 21 08/09/18 08:00 Room Air Room Air Room Air 08/09/18 08:00 98.4 88 22 135/85 (102) 97 08/09/18 07:57 95 Room Air 21 08/09/18 07:57 82 18 94 Room Air 21 08/09/18 07:57 Room Air 21 08/09/18 07:42 99 08/09/18 04:00 Room Air Room Air Room Air 08/09/18 04:00 98.6 95 19 141/87 (105) 100 08/09/18 04:00 92 08/09/18 01:39 78 18 98 Room Air 21 08/09/18 01:29 83 18 93 Room Air 21 08/09/18 00:00 94 08/09/18 00:00 Room Air Room Air Room Air 08/09/18 00:00 98.5 87 24 137/85 (102) 95 08/08/18 20:00 102 08/08/18 20:00 Room Air Room Air Room Air 08/08/18 20:00 98.3 113 24 132/81 (98) 94 08/08/18 19:05 78 18 98 Room Air 21 08/08/18 18:55 94 Room Air 21 08/08/18 18:55 Room Air 21 08/08/18 18:55 82 18 94 Room Air 08/08/18 16:00 98 08/08/18 16:00 Room Air Room Air Room Air 08/08/18 16:00 97.8 98 22 137/86 (103) 97 Intake and Output 08/08/18 08/09/18 19:00 07:00 Intake Total 1155 ml 1280 ml Output Total 550 ml 600 ml Balance 605 ml 680 ml Free Water 150 ml 150 ml IV Total 595 ml 540 ml Tube Feeding 410 ml 590 ml Output Urine Total 550 ml 600 ml # Bowel Movements 4 2 Laboratory Tests 08/09/18 03:15: White Blood Count 11.1H, Red Blood Count 4.17L, Hemoglobin 11.8L, Hematocrit 35.9L, Mean Corpuscular Volume 86, Mean Corpuscular Hemoglobin 28.4, Mean Corpuscular Hemoglobin Concent 32.9, Red Cell Distribution Width 14.5, Platelet Count 237, Mean Platelet Volume 6.2L, Neutrophils (%) (Auto) 73.9, Lymphocytes ( %) (Auto) 11.9L, Monocytes (%) (Auto) 8.9, Eosinophils (%) (Auto) 4.4H, Basophils (%) (Auto) 0.9, Erythrocyte Sedimentation Rate 71H, Sodium Level 140, Potassium Level 3.6, Chloride Level 104, Carbon Dioxide Level 28, Anion Gap 8, Blood Urea Nitrogen 19H, Creatinine 1.1, Estimat Glomerular Filtration Rate , Glucose Level 155H, Calcium Level 8.7, Total Bilirubin 0.3, Aspartate Amino Transf (AST/SGOT) 16, Alanine Aminotransferase (ALT/SGPT) 15, Alkaline Phosphatase 85, C-Reactive Protein, Quantitative 7.6H, Total Protein 6.3L, Albumin 2.1L, Globulin 4.2, Albumin/Globulin Ratio 0.5L Height (Feet): 5 Height (Inches): 6.00 Weight (Pounds): 228 General Appearance: no apparent distress, alert EENT: normal ENT inspection Neck: non-tender, supple Cardiovascular: normal peripheral pulses, regularly irregular Respiratory/Chest: lungs clear, normal breath sounds Abdomen: normal bowel sounds, non tender, soft Extremities: normal range of motion, non-tender Edema: no edema noted Arm (L), no edema noted Arm (R), no edema noted Leg (L), no edema noted Leg (R), no edema noted Pedal (L), no edema noted Pedal (R), no edema noted Generalized Neurologic: responsive Skin: warm/dry Lymphatic: normal anterior cervical (L), normal anterior cervical (R), normal posterior cervical (L), normal posterior cervical (R), normal submandibular (L) , normal submandibular (R), normal supraclavicular (L), normal supraclavicular ( R), normal axillary (L), normal axillary (R), normal inguinal (L), normal inguinal (R), normal other Shelby Arrington MD Aug 09, 2018 14:49
--- NOTE | 2018-08-09 14:51 | Cardiac Electrophysiology PN ---
Assessment/Plan Assessment/Plan 1. Atrial fib with RVR. Change Cardizem CD to 60 tid short acting. Anticoagulation held due to bleeding and low platelet count 2. HTN on Cardizem 3. Hyperlipidemia on atorvastatin 4. Mild aortic stenosis 5. Aspiration PNA 6. S/p resp failure DW Dr Arrington Subjective Subjective In atrial fib in 80-90s. No events.Nonverbal in restraints Objective Last 24 Hour Vital Signs Date Time Temp Pulse Resp B/P (MAP) Pulse Ox O2 Delivery O2 Flow Rate FiO2 08/09/18 13:54 90 20 99 Room Air 21 08/09/18 13:46 84 20 93 Room Air 21 08/09/18 12:00 98.0 86 22 150/83 (105) 94 08/09/18 11:36 88 08/09/18 09:00 88 135/85 08/09/18 08:08 86 16 99 Room Air 21 08/09/18 08:00 Room Air Room Air Room Air 08/09/18 08:00 98.4 88 22 135/85 (102) 97 08/09/18 07:57 95 Room Air 21 08/09/18 07:57 82 18 94 Room Air 21 08/09/18 07:57 Room Air 21 08/09/18 07:42 99 08/09/18 04:00 Room Air Room Air Room Air 08/09/18 04:00 98.6 95 19 141/87 (105) 100 08/09/18 04:00 92 08/09/18 01:39 78 18 98 Room Air 21 08/09/18 01:29 83 18 93 Room Air 21 08/09/18 00:00 94 08/09/18 00:00 Room Air Room Air Room Air 08/09/18 00:00 98.5 87 24 137/85 (102) 95 08/08/18 20:00 102 08/08/18 20:00 Room Air Room Air Room Air 08/08/18 20:00 98.3 113 24 132/81 (98) 94 08/08/18 19:05 78 18 98 Room Air 21 08/08/18 18:55 94 Room Air 21 08/08/18 18:55 Room Air 21 08/08/18 18:55 82 18 94 Room Air 21 08/08/18 16:00 98 08/08/18 16:00 Room Air Room Air Room Air 08/08/18 16:00 97.8 98 22 137/86 (103) 97 Intake and Output 08/08/18 08/09/18 19:00 07:00 Intake Total 1155 ml 1280 ml Output Total 550 ml 600 ml Balance 605 ml 680 ml Free Water 150 ml 150 ml IV Total 595 ml 540 ml Tube Feeding 410 ml 590 ml Output Urine Total 550 ml 600 ml # Bowel Movements 4 2 Laboratory Tests Test 08/09/18 03:15 White Blood Count 11.1 K/UL (4.8-10.8) H Red Blood Count 4.17 M/UL (4.70-6.10) L Hemoglobin 11.8 G/DL (14.2-18.0) L Hematocrit 35.9 % (42.0-52.0) L Mean Corpuscular Volume 86 FL (80-99) Mean Corpuscular Hemoglobin 28.4 PG (27.0-31.0) Mean Corpuscular Hemoglobin Concent 32.9 G/DL (32.0-36.0) Red Cell Distribution Width 14.5 % (11.6-14.8) Platelet Count 237 K/UL (150-450) Mean Platelet Volume 6.2 FL (6.5-10.1) L Neutrophils (%) (Auto) 73.9 % (45.0-75.0) Lymphocytes (%) (Auto) 11.9 % (20.0-45.0) L Monocytes (%) (Auto) 8.9 % (1.0-10.0) Eosinophils (%) (Auto) 4.4 % (0.0-3.0) H Basophils (%) (Auto) 0.9 % (0.0-2.0) Erythrocyte Sedimentation Rate 71 MM/HR (0-20) H Sodium Level 140 MMOL/L (136-145) Potassium Level 3.6 MMOL/L (3.5-5.1) Chloride Level 104 MMOL/L (98-107) Carbon Dioxide Level 28 MMOL/L (21-32) Anion Gap 8 mmol/L (5-15) Blood Urea Nitrogen 19 mg/dL (7-18) H Creatinine 1.1 MG/DL (0.55-1.30) Estimat Glomerular Filtration Rate mL/min (>60) Glucose Level 155 MG/DL (74-106) H Calcium Level 8.7 MG/DL (8.5-10.1) Total Bilirubin 0.3 MG/DL (0.2-1.0) Aspartate Amino Transf (AST/SGOT) 16 U/L (15-37) Alanine Aminotransferase (ALT/SGPT) 15 U/L (12-78) Alkaline Phosphatase 85 U/L (46-116) C-Reactive Protein, Quantitative 7.6 mg/dL (0.00-0.90) H Total Protein 6.3 G/DL (6.4-8.2) L Albumin 2.1 G/DL (3.4-5.0) L Globulin 4.2 g/dL Albumin/Globulin Ratio 0.5 (1.0-2.7) L Microbiology Date/Time Source Procedure Growth Status 08/06/18 21:55 Blood Blood Culture - Preliminary NO GROWTH AFTER 48 HOURS Resulted 08/06/18 21:45 Blood Blood Culture - Preliminary NO GROWTH AFTER 48 HOURS Resulted Objective HEENT: atraumatic, normocephalic. No JVD Lungs: rhonchi - few scattered Heart: HR/BP stable, irregular Abdomen: soft, non-tender, active bowel sounds, feeding tube Extremities: edema - 1+, cyanosis - no, clubbing - no Decubiti: location - sacral, stage - 2 Gary Bay MD Aug 09, 2018 14:51
--- NOTE | 2018-08-09 15:06 | NUR ---
NURSE NOTES: Spoke with Dr. Arrington. States to put on hold Effexor and Tamsulosin medications. orders entered. Will be endorsed to shift lab technician nurse.
[2018-08-09 16:00] VITALS: BP 144/95
--- NOTE | 2018-08-09 16:18 | Infectious Diseases Prog Note ---
Assessment/Plan Problems: (1) LLL pneumonia Assessment & Plan: suspect aspiration, on zyvox and ceftriaxone empirically . aspiration precaution (2) Left arm cellulitis Assessment & Plan: suspect strep and staph related, complicated with blisters, already on wide spectrum antibiotics , keep arm elevated while in bed, venous doppler is negative for DVT (3) Sepsis Assessment & Plan: due to the above, with STAPH EPIDERMIDIS and STREP GROUP A , source? left hand cellulitis VS pneumonia VS sacral pressure wound , continue zyvox and ceftriaxone for two weeks . ECHO showed no valve vegetations . repeat blood culture to confirm clearance (4) CKD (chronic kidney disease) Assessment & Plan: continue hydration and renally dosed meds as per pharmacy (5) Renal mass, right Assessment & Plan: poor candidate for surgery (6) Encephalopathy Assessment & Plan: suspect metabolic due to the above, continue hydration with antibiotics , avoid sedatives (7) Acute respiratory failure Assessment & Plan: due to the above , S/P intubation , pulmonary is following Subjective ROS Limited/Unobtainable: Yes Allergies: Coded Allergies: MORPHINE (Verified Allergy, Unknown, 03/25/18) PENICILLINS (Verified Allergy, Unknown, 03/05/18) Subjective He was awake and responsive , was extubated , afebrile. blisters in his left hand have burst . Objective Vital Signs Last 24 Hour Vital Signs Date Time Temp Pulse Resp B/P (MAP) Pulse Ox O2 Delivery O2 Flow Rate FiO2 08/09/18 13:54 90 20 99 Room Air 21 08/09/18 13:46 84 20 93 Room Air 21 08/09/18 12:00 98.0 86 22 150/83 (105) 94 08/09/18 11:36 88 08/09/18 09:00 88 135/85 08/09/18 08:08 86 16 99 Room Air 21 08/09/18 08:00 Room Air Room Air Room Air 08/09/18 08:00 98.4 88 22 135/85 (102) 97 08/09/18 07:57 95 Room Air 21 08/09/18 07:57 82 18 94 Room Air 21 08/09/18 07:57 Room Air 21 08/09/18 07:42 99 08/09/18 04:00 Room Air Room Air Room Air 08/09/18 04:00 98.6 95 19 141/87 (105) 100 08/09/18 04:00 92 08/09/18 01:39 78 18 98 Room Air 21 08/09/18 01:29 83 18 93 Room Air 21 08/09/18 00:00 94 08/09/18 00:00 Room Air Room Air Room Air 08/09/18 00:00 98.5 87 24 137/85 (102) 95 08/08/18 20:00 102 08/08/18 20:00 Room Air Room Air Room Air 08/08/18 20:00 98.3 113 24 132/81 (98) 94 08/08/18 19:05 78 18 98 Room Air 21 08/08/18 18:55 94 Room Air 21 08/08/18 18:55 Room Air 21 08/08/18 18:55 82 18 94 Room Air 21 Height (Feet): 5 Height (Inches): 6.00 Weight (Pounds): 228 General Appearance: WD/WN, no acute distress HEENT: normocephalic, atraumatic, anicteric, mucous membranes moist, PERRL, EOMI, pharynx normal, supple, no JVD Respiratory/Chest: chest wall non-tender, no respiratory distress, no accessory muscle use, decreased breath sounds, accessory muscle use, crackles/ rales Cardiovascular: normal peripheral pulses, normal rate, regular rhythm, no gallop/murmur, no JVD Abdomen: normal bowel sounds, soft, non tender, no organomegaly, non distended , no mass, no scars Genitourinary: normal external genitalia Extremities: no cyanosis, no clubbing Skin: no rash, no lesions, ulcers, other - left hand Neurologic/Psychiatric: alert, responsive Lymphatic: no neck adenopathy, no groin adenopathy Musculoskeletal: normal muscle bulk, no effusion Microbiology Date/Time Source Procedure Growth Status 08/06/18 21:55 Blood Blood Culture - Preliminary NO GROWTH AFTER 48 HOURS Resulted 08/06/18 21:45 Blood Blood Culture - Preliminary NO GROWTH AFTER 48 HOURS Resulted Laboratory Tests Test 08/09/18 03:15 White Blood Count 11.1 K/UL (4.8-10.8) H Red Blood Count 4.17 M/UL (4.70-6.10) L Hemoglobin 11.8 G/DL (14.2-18.0) L Hematocrit 35.9 % (42.0-52.0) L Mean Corpuscular Volume 86 FL (80-99) Mean Corpuscular Hemoglobin 28.4 PG (27.0-31.0) Mean Corpuscular Hemoglobin Concent 32.9 G/DL (32.0-36.0) Red Cell Distribution Width 14.5 % (11.6-14.8) Platelet Count 237 K/UL (150-450) Mean Platelet Volume 6.2 FL (6.5-10.1) L Neutrophils (%) (Auto) 73.9 % (45.0-75.0) Lymphocytes (%) (Auto) 11.9 % (20.0-45.0) L Monocytes (%) (Auto) 8.9 % (1.0-10.0) Eosinophils (%) (Auto) 4.4 % (0.0-3.0) H Basophils (%) (Auto) 0.9 % (0.0-2.0) Erythrocyte Sedimentation Rate 71 MM/HR (0-20) H Sodium Level 140 MMOL/L (136-145) Potassium Level 3.6 MMOL/L (3.5-5.1) Chloride Level 104 MMOL/L (98-107) Carbon Dioxide Level 28 MMOL/L (21-32) Anion Gap 8 mmol/L (5-15) Blood Urea Nitrogen 19 mg/dL (7-18) H Creatinine 1.1 MG/DL (0.55-1.30) Estimat Glomerular Filtration Rate mL/min (>60) Glucose Level 155 MG/DL (74-106) H Calcium Level 8.7 MG/DL (8.5-10.1) Total Bilirubin 0.3 MG/DL (0.2-1.0) Aspartate Amino Transf (AST/SGOT) 16 U/L (15-37) Alanine Aminotransferase (ALT/SGPT) 15 U/L (12-78) Alkaline Phosphatase 85 U/L (46-116) C-Reactive Protein, Quantitative 7.6 mg/dL (0.00-0.90) H Total Protein 6.3 G/DL (6.4-8.2) L Albumin 2.1 G/DL (3.4-5.0) L Globulin 4.2 g/dL Albumin/Globulin Ratio 0.5 (1.0-2.7) L Current Medications Medications (Trade) Dose Ordered Sig/Colin Route PRN Reason Start Time Stop Time Status Last Admin Dose Admin Acetaminophen (Tylenol) 650 mg Q4H PRN GT Mild Pain/Temp > 100.5 08/09/18 14:15 09/08/18 14:14 Albuterol/ Ipratropium (Albuterol/ Ipratropium) 3 ml Q4H PRN HHN Shortness of Breath 08/09/18 12:04 08/14/18 12:03 Albuterol/ Ipratropium (Albuterol/ Ipratropium) 3 ml Q6HRT HHN 08/09/18 13:00 08/14/18 12:50 08/09/18 13:48 Atorvastatin Calcium (Lipitor) 20 mg BEDTIME GT 08/09/18 21:00 09/02/18 20:59 Carbidopa/Levodopa (Sinemet 25/100) 1 tab THREE TIMES A DAY GT 08/09/18 18:00 09/02/18 17:59 Ceftriaxone Sodium 2 gm/ Dextrose 55 ml @ 110 mls/hr Q24H IVPB 08/09/18 18:00 08/20/18 17:59 Diltiazem HCl (Cardizem) 60 mg EVERY 6 HOURS GT 08/09/18 18:00 09/08/18 17:59 Gabapentin (Neurontin) 100 mg QHS GT 08/09/18 21:00 09/02/18 20:59 Heparin Sodium (Porcine) (Heparin 5000 units/ml) 5,000 units EVERY 12 HOURS SUBQ 08/09/18 21:00 09/04/18 20:59 Linezolid 300 ml @ 300 mls/hr Q12HR IVPB 08/09/18 21:00 08/20/18 20:59 Lorazepam (Ativan 2mg/ml 1ml) 1 mg Q4H PRN IV For Anxiety 08/09/18 12:05 08/16/18 12:04 Ondansetron HCl (Zofran) 4 mg Q6H PRN IVP Nausea & Vomiting 08/09/18 12:05 09/08/18 12:04 Pantoprazole (Protonix) 40 mg DAILY IVP 08/10/18 09:00 09/02/18 08:59 Sodium Chloride 1,000 ml @ 20 mls/hr Q24H IV 08/09/18 12:04 09/08/18 12:03 Vitamin B Complex/ Vit C/Folic Acid (Nephrovite) 1 tab DAILY GT 08/10/18 09:00 09/03/18 08:59 Srini Sam M.D. Aug 09, 2018 16:18
[2018-08-09] MEDS ORDERED: Tubing IV Secondary IV ONE (17:12)
[2018-08-09] MEDS ORDERED: NS 275ml ONE (17:12)
[2018-08-09] MEDS: dilTIAZem HCl 60mg tab GT SCH ×2 (17:41→23:44)
[2018-08-09] MEDS: Levodopa/Carbidopa 25/100 tab GT SCH (17:41)
[2018-08-09] MEDS: cefTRIAXone 2 GM in D5W 55 ML IVPB SCH (17:55)
--- NOTE | 2018-08-09 19:38 | NUR ---
HAND-OFF: Report given to SHANNON Solis.
--- NOTE | 2018-08-09 19:39 | Pulmonolgy Critical Care Note ---
Critical Care - Asmt/Plan Assessment/Plan: Pulmonary CCM Progress Note Critical Care - Asmt/Plan Problems: (1) Sepsis Assessment & Plan: HEMODYNAMICALLY STABLE (2) Respiratory failure, acute Assessment & Plan: EXTUBATED 08/06 (3) Airway intubation performed without difficulty Assessment & Plan: EXTUBATED 08/06 (4) LLL pneumonia Assessment & Plan: CLINICALLY IMPROVED (5) Left arm cellulitis (6) STUART (acute kidney injury) Assessment & Plan: RESOLVED (7) CKD (chronic kidney disease) (8) Dementia (9) Leukocytosis (10) FTT (failure to thrive) in adult (11) Afib Critical Care - Objective Vital Signs Noted Status: awake Condition: critical HEENT: atraumatic, normocephalic Lungs: CTAB Heart: HR/BP stable, irregular Abdomen: soft, non-tender, active bowel sounds Extremities: no C/C/E Micro: Respiratory: monitor respiratory status, O2, , HHN's Cardiac: other - Dilt, cards recs, off A/C 2/2 bleeding risk (prior GIB), ? Watch[place] Renal: decrease IV fluid - to 20 cc/hr, check electrolytes, other - Replete K Infectious Disease: continue antibiotics - Zyvox per ID, other - wound care Gastrointestinal: continue feedings/current rate Endocrine: monitor blood sugar Hematologic: monitor H/H Neurologic: keep patient comfortable - monitor MS Prophylaxis: Protonix, Heparin - SQ Disposition: transfer to - [facility] Time Spent (Minutes): 30 Notes Reviewed: gantry rigger, cardio, ID Discussed with: nurses, consultants, other - DNAR Critical Care - Subjective ROS Limited/Unobtainable: Yes Intubation Day: extubated Interval Events: 100% on 2L Awake follows basic commands No cough no SOB no wheezing no FC TF's started Condition: stable IV Access: peripheral EKG Rhythm: Atrial Fibrillation FI02: 28 Vent Support Breath Rate: 16 Vent Support Mode: CPAP Vent Tidal Volume: 500 Sputum Amount: None PEEP: 5.0 PIP: 14 Secretions: None Fluids: NS@50 Tube Feeding Amount: 40 Laboratory Tests Test 08/07/18 09:20 White Blood Count 12.6 K/UL (4.8-10.8) H Red Blood Count 4.38 M/UL (4.70-6.10) L Hemoglobin 12.1 G/DL (14.2-18.0) L Hematocrit 37.6 % (42.0-52.0) L Mean Corpuscular Volume 86 FL (80-99) Mean Corpuscular Hemoglobin 27.7 PG (27.0-31.0) Mean Corpuscular Hemoglobin Concent 32.2 G/DL (32.0-36.0) Red Cell Distribution Width 14.1 % (11.6-14.8) Platelet Count 219 K/UL (150-450) Mean Platelet Volume 6.2 FL (6.5-10.1) L Neutrophils (%) (Auto) 82.6 % (45.0-75.0) H Lymphocytes (%) (Auto) 7.2 % (20.0-45.0) L Monocytes (%) (Auto) 8.5 % (1.0-10.0) Eosinophils (%) (Auto) 0.9 % (0.0-3.0) Basophils (%) (Auto) 0.9 % (0.0-2.0) Sodium Level 142 MMOL/L (136-145) Potassium Level 3.2 MMOL/L (3.5-5.1) L Chloride Level 106 MMOL/L (98-107) Carbon Dioxide Level 23 MMOL/L (21-32) Anion Gap 13 mmol/L (5-15) Blood Urea Nitrogen 18 mg/dL (7-18) Creatinine 1.0 MG/DL (0.55-1.30) Estimat Glomerular Filtration Rate mL/min (>60) Glucose Level 90 MG/DL (74-106) Calcium Level 8.6 MG/DL (8.5-10.1) Critical Care - Objective Last 24 Hour Vital Signs Date Time Temp Pulse Resp B/P (MAP) Pulse Ox O2 Delivery O2 Flow Rate FiO2 08/09/18 19:18 89 20 99 Room Air 08/09/18 18:59 Room Air 08/09/18 18:59 97 Room Air 08/09/18 18:59 78 20 97 Room Air 08/09/18 17:41 97 144/95 08/09/18 16:00 98.5 97 20 144/95 (111) 94 08/09/18 15:30 88 08/09/18 13:54 90 20 99 Room Air 21 08/09/18 13:46 84 20 93 Room Air 21 08/09/18 12:00 98.0 86 22 150/83 (105) 94 08/09/18 11:36 88 08/09/18 09:00 88 135/85 08/09/18 08:08 86 16 99 Room Air 21 08/09/18 08:00 Room Air Room Air Room Air 08/09/18 08:00 98.4 88 22 135/85 (102) 97 08/09/18 07:57 95 Room Air 21 08/09/18 07:57 82 18 94 Room Air 21 08/09/18 07:57 Room Air 21 08/09/18 07:42 99 08/09/18 04:00 Room Air Room Air Room Air 08/09/18 04:00 98.6 95 19 141/87 (105) 100 08/09/18 04:00 92 08/09/18 01:39 78 18 98 Room Air 21 08/09/18 01:29 83 18 93 Room Air 21 08/09/18 00:00 94 08/09/18 00:00 Room Air Room Air Room Air 08/09/18 00:00 98.5 87 24 137/85 (102) 95 08/08/18 20:00 102 08/08/18 20:00 Room Air Room Air Room Air 08/08/18 20:00 98.3 113 24 132/81 (98) 94 Micro: Microbiology Date/Time Source Procedure Growth Status 08/06/18 21:55 Blood Blood Culture - Preliminary NO GROWTH AFTER 48 HOURS Resulted 08/06/18 21:45 Blood Blood Culture - Preliminary NO GROWTH AFTER 48 HOURS Resulted Critical Care - Subjective ROS Limited/Unobtainable: No FI02: 21 Vent Support Breath Rate: 16 Vent Support Mode: CPAP Vent Tidal Volume: 500 Sputum Amount: None PEEP: 5.0 PIP: 14 Tube Feeding Amount: 50 I&O: Intake and Output 08/08/18 08/09/18 19:00 07:00 Intake Total 1155 ml 1280 ml Output Total 550 ml 600 ml Balance 605 ml 680 ml Free Water 150 ml 150 ml IV Total 595 ml 540 ml Tube Feeding 410 ml 590 ml Output Urine Total 550 ml 600 ml # Bowel Movements 4 2 Richie Grove MD Aug 09, 2018 19:39
--- NOTE | 2018-08-09 19:41 | NUR ---
NURSE NOTES: Received patient from Adrian ORTEGA. Patient in bed, receiving breathing treatment, RT at bedside. Patient calm and cooperative. No signs of respiratory distress. Bed alarm on, bed in low position, locked, call light within reach.
[2018-08-09 20:00] VITALS: BP 136/87
--- NOTE | 2018-08-09 20:00 | NUR ---
NURSE NOTES: Gastric residual of 120ml. Placed tube feeding on hold. Will continue to monitor.
[2018-08-09] MEDS: Atorvastatin 20mg tab GT SCH (20:39)
[2018-08-09] MEDS ORDERED: Atorvastatin 20mg tab ORAL SCH (21:00)
[2018-08-09] MEDS ORDERED: Tamsulosin 0.4mg cap ORAL SCH ×2 (21:00)
--- NOTE | 2018-08-09 21:00 | NUR ---
NURSE NOTES: Gastric residual of 70ml. Restarted tube feeding at 30ml/hr.
--- NOTE | 2018-08-09 22:00 | NUR ---
NURSE NOTES: Gastric residual of 60ml, increased tube feeding back to original rate of 50ml/hr.
[2018-08-10] VITALS (7 sets, daily range): BP systolic 119–149; BP diastolic 70–91
[2018-08-10] MEDS: Albuterol/Ipratropium 3ml neb HHN SCH ×4 (00:16→18:44)
[2018-08-10] MEDS: dilTIAZem HCl 60mg tab GT SCH ×4 (05:35→23:43)
[2018-08-10] MEDS: Acetaminophen 650mg/20.3ml GT PRN ×2 (05:36→20:35)
--- NOTE | 2018-08-10 07:10 | NUR ---
HAND-OFF: Report given to Adrian ORTEGA. Patient in stable condition, bed alarm on, bed in low position, locked. Call light within reach.
--- NOTE | 2018-08-10 07:15 | NUR ---
NURSE NOTES: Received report from SHANNON Solis. Pt is asleep in semi-martinez's position. Patient became awake and alert to name and oriented x1. Pt is on room air with no respiratory distress. Patient is on heart monitor with controlled afibrillation. GT in place with feeding Glucerna 1.5 infusing at 50ml/hour. IV access on right hand #20G infusing NS at 20mL/hour. Park in place, draining clear/yellow urine. Bed is locked with two side rails up, lowest position, bed alarm, and call light within easy reach. Skin has dressings in place on sacral, left foot and left hand areas, dry/intact. Pt is on P200 mattress. Will continue to monitor pt and follow plan of care per MD orders and protocol.
[2018-08-10 07:17] LABS: BASOPHILS % (AUTO) 0.7 % (0.0-2.0); EOSINOPHILS % (AUTO) 2.5 % (0.0-3.0); HEMATOCRIT 36.1 % (42.0-52.0); HEMOGLOBIN 11.6 G/DL (14.2-18.0); LYMPHOCYTES % (AUTO) 8.3 % (20.0-45.0); MEAN CORPUSCULAR VOLUME 87 FL (80-99); MONOCYTES % (AUTO) 8.2 % (1.0-10.0); NEUTROPHILS % (AUTO) 80.3 % (45.0-75.0); PLATELET COUNT 239 K/UL (150-450); RED BLOOD COUNT 4.16 M/UL (4.70-6.10); RED CELL DISTRIBUTION WIDTH 14.9 % (11.6-14.8); WHITE BLOOD COUNT 10.6 K/UL (4.8-10.8)
[2018-08-10 07:34] LABS: ALANINE AMINOTRANSFERASE 26 U/L (12-78); ALBUMIN/GLOBULIN RATIO 0.5 (1.0-2.7); ALKALINE PHOSPHATASE 87 U/L (46-116); ANION GAP 8 mmol/L (5-15); ASPARTATE AMINO TRANSFERASE 19 U/L (15-37); BILIRUBIN,TOTAL 0.4 MG/DL (0.2-1.0); BLOOD UREA NITROGEN 23 mg/dL (7-18); CALCIUM 8.6 MG/DL (8.5-10.1); CARBON DIOXIDE 28 MMOL/L (21-32); CHLORIDE 105 MMOL/L (98-107); CREATININE 1.2 MG/DL (0.55-1.30); SODIUM 141 MMOL/L (136-145)
[2018-08-10] MEDS: Nephrovite tab (Rena-Vite) GT SCH (08:14)
[2018-08-10] MEDS: Pantoprazole Inj IVP SCH (08:14)
[2018-08-10] MEDS: Levodopa/Carbidopa 25/100 tab GT SCH ×3 (08:14→17:42)
[2018-08-10] MEDS: Heparin 5000 units/ml inj SUBQ SCH ×2 (08:16→20:54)
--- NOTE | 2018-08-10 08:43 | NUR ---
NURSE NOTES: 5ml residual. Gt tube sit Addendum: 08/10/18 at 0845 by Adrian Grimes RN Gt tube site intact and patent. dressing of g tube intact. Patient is dry and was repositioned to his left side. Attempted oral suction. Patient still has gurgling noise occasionally. Oral care performed. Will notify primary MD and respiratory therapist.
[2018-08-10] MEDS ORDERED: Venlafaxine XR 37.5mg cap ORAL SCH ×2 (09:00)
[2018-08-10] MEDS ORDERED: dilTIAZem HCl CD 240mg cap ORAL SCH (09:00)
[2018-08-10] MEDS ORDERED: Nephrovite tab (Rena-Vite) ORAL SCH (09:00)
--- NOTE | 2018-08-10 09:00 | NUR ---
NURSE NOTES: Dr. Prasad and Dr. Trotter are aware of the troponin 0.073.
--- NOTE | 2018-08-10 10:00 | General Progress Note ---
Assessment/Plan Status: stable Assessment: 1. Acute Respiratory failure - in tele. Pulm following. on tube feeding. 2. Asp Pneumonia Cont IV ABX per ID. improved. 3. sepsis - Cont IV ABX per ID. improved. 4. 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 5. Parkinson dementia - cont home meds. 6. Chronic Lt leg Popliteal thrombosis - off anticoagulation due to high risk of bleeding and previous hx of GI bleeding. 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 7. Chronic kidney disease - stable. 8. Hx of renal mass - family refused the work up last admission. currently DNR. 9. Hx of CVA with one sided hemiplegia 10. Depression - cont home meds. 11. Neuropathy - stable. 12. Hyperlipidemia - cont home med. Subjective Date patient seen: Aug 10, 2018 Time patient seen: 08:30 Constitutional: Reports: weakness HEENT: Reports: no symptoms Cardiovascular: Reports: no symptoms Respiratory: Reports: no symptoms Gastrointestinal/Abdominal: Reports: no symptoms Genitourinary: Reports: no symptoms Neurologic/Psychiatric: Reports: no symptoms Endocrine: Reports: no symptoms Hematologic/Lymphatic: Reports: no symptoms Allergies: Coded Allergies: MORPHINE (Verified Allergy, Unknown, 03/25/18) PENICILLINS (Verified Allergy, Unknown, 03/05/18) Subjective He is awake and doing well. Afebrile. No sob or chest pain. Objective Last 24 Hour Vital Signs Date Time Temp Pulse Resp B/P (MAP) Pulse Ox O2 Delivery O2 Flow Rate FiO2 08/10/18 09:00 Room Air Room Air Room Air 08/10/18 08:00 98.2 87 20 119/76 (90) 94 08/10/18 07:46 87 08/10/18 07:05 95 20 99 Room Air 21 08/10/18 06:58 Room Air 21 08/10/18 06:58 84 20 95 Room Air 21 08/10/18 06:58 95 Room Air 21 08/10/18 06:16 99.0 08/10/18 06:06 99.0 08/10/18 05:35 108 149/91 08/10/18 04:00 100.0 103 20 149/91 (110) 92 08/10/18 04:00 108 08/10/18 00:22 83 20 99 Room Air 21 08/10/18 00:13 78 20 96 Room Air 21 08/10/18 00:00 97.9 93 24 134/91 (105) 96 08/09/18 23:44 93 134/91 08/09/18 23:32 99 08/09/18 21:00 Room Air Room Air Room Air 08/09/18 20:00 97.1 92 16 136/87 (103) 92 08/09/18 19:22 85 08/09/18 19:18 89 20 99 Room Air 21 08/09/18 18:59 Room Air 21 08/09/18 18:59 97 Room Air 21 08/09/18 18:59 78 20 97 Room Air 21 08/09/18 17:41 97 144/95 08/09/18 16:00 98.5 97 20 144/95 (111) 94 08/09/18 15:30 88 08/09/18 13:54 90 20 99 Room Air 21 08/09/18 13:46 84 20 93 Room Air 21 08/09/18 12:00 98.0 86 22 150/83 (105) 94 08/09/18 11:36 88 Intake and Output 08/09/18 08/10/18 19:00 07:00 Intake Total 403 ml Balance 403 ml Tube Feeding 403 ml # Bowel Movements 3 Laboratory Tests 08/10/18 05:56: White Blood Count 10.6, Red Blood Count 4.16L, Hemoglobin 11.6L, Hematocrit 36.1L, Mean Corpuscular Volume 87, Mean Corpuscular Hemoglobin 28.0, Mean Corpuscular Hemoglobin Concent 32.2, Red Cell Distribution Width 14.9H, Platelet Count 239, Mean Platelet Volume 6.4L, Neutrophils (%) (Auto) 80.3H, Lymphocytes (%) (Auto) 8.3L, Monocytes (%) (Auto) 8.2, Eosinophils (%) (Auto) 2.5, Basophils (%) (Auto) 0.7, Sodium Level 141, Potassium Level 4.0, Chloride Level 105, Carbon Dioxide Level 28, Anion Gap 8, Blood Urea Nitrogen 23H, Creatinine 1.2, Estimat Glomerular Filtration Rate , Glucose Level 158H, Calcium Level 8.6, Total Bilirubin 0.4, Aspartate Amino Transf (AST/SGOT) 19, Alanine Aminotransferase (ALT/SGPT) 26, Alkaline Phosphatase 87, Total Protein 6.1L, Albumin 2.0L, Globulin 4.1, Albumin/Globulin Ratio 0.5L Height (Feet): 5 Height (Inches): 6.00 Weight (Pounds): 232 General Appearance: no apparent distress Neck: non-tender, supple Cardiovascular: regularly irregular Respiratory/Chest: chest wall non-tender, lungs clear, normal breath sounds Abdomen: normal bowel sounds, non tender, soft Extremities: normal range of motion, non-tender Edema: no edema noted Arm (L), no edema noted Arm (R), no edema noted Leg (L), no edema noted Leg (R), no edema noted Pedal (L), no edema noted Pedal (R), no edema noted Generalized Neurologic: responsive Skin: warm/dry Lymphatic: normal anterior cervical (L), normal anterior cervical (R), normal posterior cervical (L), normal posterior cervical (R), normal submandibular (L) , normal submandibular (R), normal supraclavicular (L), normal supraclavicular ( R), normal axillary (L), normal axillary (R), normal inguinal (L), normal inguinal (R), normal other Shelby Arrington MD Aug 10, 2018 10:00
--- NOTE | 2018-08-10 10:27 | NUR ---
NURSE NOTES: Spoke with Dr. Arrington. Verified lab orders. In addition, notified doctor about POLST. Dr. Arrington states patient is only DNR, NOT DNI.
--- NOTE | 2018-08-10 12:00 | NUR ---
NURSE NOTES: 20ml Residual noted. Continuing Glucerna 1.5 @ 50 ml/hr. G-tube is intact and patent. Dressing is dry.
--- NOTE | 2018-08-10 13:46 | Cardiac Electrophysiology PN ---
Assessment/Plan Assessment/Plan 1. Atrial fib with RVR. On Cardizem 60 qid Anticoagulation held due to bleeding and low platelet count 2. HTN on Cardizem 3. Hyperlipidemia on atorvastatin 4. Mild aortic stenosis 5. Aspiration PNA 6. S/p resp failure DW RN Subjective Subjective In atrial fib with controlled rate. No events. Talked to RN earlier. No CP or SOB Objective Last 24 Hour Vital Signs Date Time Temp Pulse Resp B/P (MAP) Pulse Ox O2 Delivery O2 Flow Rate FiO2 08/10/18 12:59 86 139/87 08/10/18 12:16 86 16 99 Room Air 21 08/10/18 12:10 92 20 95 Room Air 21 08/10/18 12:00 97.9 82 18 139/87 (104) 95 08/10/18 11:27 90 08/10/18 09:00 Room Air Room Air Room Air 08/10/18 08:00 98.2 87 20 119/76 (90) 94 08/10/18 07:46 87 08/10/18 07:05 95 20 99 Room Air 21 08/10/18 06:58 Room Air 21 08/10/18 06:58 84 20 95 Room Air 21 08/10/18 06:58 95 Room Air 21 08/10/18 06:16 99.0 08/10/18 06:06 99.0 08/10/18 05:35 108 149/91 08/10/18 04:00 100.0 103 20 149/91 (110) 92 08/10/18 04:00 108 08/10/18 00:22 83 20 99 Room Air 21 08/10/18 00:13 78 20 96 Room Air 21 08/10/18 00:00 97.9 93 24 134/91 (105) 96 08/09/18 23:44 93 134/91 08/09/18 23:32 99 08/09/18 21:00 Room Air Room Air Room Air 08/09/18 20:00 97.1 92 16 136/87 (103) 92 08/09/18 19:22 85 08/09/18 19:18 89 20 99 Room Air 21 08/09/18 18:59 Room Air 21 08/09/18 18:59 97 Room Air 21 08/09/18 18:59 78 20 97 Room Air 21 08/09/18 17:41 97 144/95 4/19/19 16:00 98.5 97 20 144/95 (111) 94 08/09/18 15:30 88 08/09/18 13:54 90 20 99 Room Air 21 08/09/18 13:46 84 20 93 Room Air 21 Intake and Output 08/09/18 08/10/18 19:00 07:00 Intake Total 403 ml Balance 403 ml Tube Feeding 403 ml # Bowel Movements 3 Laboratory Tests Test 08/10/18 05:56 White Blood Count 10.6 K/UL (4.8-10.8) Red Blood Count 4.16 M/UL (4.70-6.10) L Hemoglobin 11.6 G/DL (14.2-18.0) L Hematocrit 36.1 % (42.0-52.0) L Mean Corpuscular Volume 87 FL (80-99) Mean Corpuscular Hemoglobin 28.0 PG (27.0-31.0) Mean Corpuscular Hemoglobin Concent 32.2 G/DL (32.0-36.0) Red Cell Distribution Width 14.9 % (11.6-14.8) H Platelet Count 239 K/UL (150-450) Mean Platelet Volume 6.4 FL (6.5-10.1) L Neutrophils (%) (Auto) 80.3 % (45.0-75.0) H Lymphocytes (%) (Auto) 8.3 % (20.0-45.0) L Monocytes (%) (Auto) 8.2 % (1.0-10.0) Eosinophils (%) (Auto) 2.5 % (0.0-3.0) Basophils (%) (Auto) 0.7 % (0.0-2.0) Sodium Level 141 MMOL/L (136-145) Potassium Level 4.0 MMOL/L (3.5-5.1) Chloride Level 105 MMOL/L (98-107) Carbon Dioxide Level 28 MMOL/L (21-32) Anion Gap 8 mmol/L (5-15) Blood Urea Nitrogen 23 mg/dL (7-18) H Creatinine 1.2 MG/DL (0.55-1.30) Estimat Glomerular Filtration Rate mL/min (>60) Glucose Level 158 MG/DL (74-106) H Calcium Level 8.6 MG/DL (8.5-10.1) Total Bilirubin 0.4 MG/DL (0.2-1.0) Aspartate Amino Transf (AST/SGOT) 19 U/L (15-37) Alanine Aminotransferase (ALT/SGPT) 26 U/L (12-78) Alkaline Phosphatase 87 U/L (46-116) Total Protein 6.1 G/DL (6.4-8.2) L Albumin 2.0 G/DL (3.4-5.0) L Globulin 4.1 g/dL Albumin/Globulin Ratio 0.5 (1.0-2.7) L Objective HEENT: atraumatic, normocephalic. No JVD Lungs: rhonchi Heart: HR/BP stable, irregular Abdomen: soft, non-tender, active bowel sounds, feeding tube Extremities: edema - 1+, cyanosis - no, clubbing - no Decubiti: sacral, stage - 2 Gary Bay MD Aug 10, 2018 13:46
--- NOTE | 2018-08-10 15:20 | Infectious Diseases Prog Note ---
Assessment/Plan Problems: (1) LLL pneumonia Assessment & Plan: suspect aspiration, on zyvox and ceftriaxone empirically . aspiration precaution (2) Left arm cellulitis Assessment & Plan: suspect strep and staph related, complicated with blisters, already on wide spectrum antibiotics , keep arm elevated while in bed, venous doppler is negative for DVT (3) Sepsis Assessment & Plan: due to the above, with STAPH EPIDERMIDIS and STREP GROUP A , source? left hand cellulitis VS pneumonia VS sacral pressure wound , continue zyvox and ceftriaxone for two weeks . ECHO showed no valve vegetations . repeat blood culture to confirm clearance (4) CKD (chronic kidney disease) Assessment & Plan: continue hydration and renally dosed meds as per pharmacy (5) Renal mass, right Assessment & Plan: poor candidate for surgery (6) Encephalopathy Assessment & Plan: suspect metabolic due to the above, continue hydration with antibiotics , avoid sedatives (7) Acute respiratory failure Assessment & Plan: due to the above , S/P intubation , pulmonary is following Subjective Constitutional: Reports: no symptoms HEENT: Reports: no symptoms Respiratory: Reports: dry cough Breasts: Reports: no symptoms Cardiovascular: Reports: no symptoms Gastrointestinal/Abdominal: Reports: no symptoms Genitourinary: Reports: no symptoms Neurologic: Reports: weakness, confusion Psychiatric: Reports: no symptoms Skin: Reports: no symptoms Endocrine: Reports: no symptoms Hematologic: Reports: no symptoms Musculoskeletal: Reports: no symptoms Allergies: Coded Allergies: MORPHINE (Verified Allergy, Unknown, 03/25/18) PENICILLINS (Verified Allergy, Unknown, 03/05/18) Subjective He was awake and responsive , was extubated , afebrile. blisters in his left hand have burst . Objective Vital Signs Last 24 Hour Vital Signs Date Time Temp Pulse Resp B/P (MAP) Pulse Ox O2 Delivery O2 Flow Rate FiO2 08/10/18 12:59 86 139/87 08/10/18 12:16 86 16 99 Room Air 21 08/10/18 12:10 92 20 95 Room Air 21 08/10/18 12:00 97.9 82 18 139/87 (104) 95 08/10/18 11:27 90 08/10/18 09:00 Room Air Room Air Room Air 08/10/18 08:00 98.2 87 20 119/76 (90) 94 08/10/18 07:46 87 08/10/18 07:05 95 20 99 Room Air 21 08/10/18 06:58 Room Air 21 08/10/18 06:58 84 20 95 Room Air 21 08/10/18 06:58 95 Room Air 21 08/10/18 06:16 99.0 08/10/18 06:06 99.0 08/10/18 05:35 108 149/91 08/10/18 04:00 100.0 103 20 149/91 (110) 92 08/10/18 04:00 108 08/10/18 00:22 83 20 99 Room Air 21 08/10/18 00:13 78 20 96 Room Air 21 08/10/18 00:00 97.9 93 24 134/91 (105) 96 08/09/18 23:44 93 134/91 08/09/18 23:32 99 08/09/18 21:00 Room Air Room Air Room Air 08/09/18 20:00 97.1 92 16 136/87 (103) 92 08/09/18 19:22 85 08/09/18 19:18 89 20 99 Room Air 21 08/09/18 18:59 Room Air 21 08/09/18 18:59 97 Room Air 21 08/09/18 18:59 78 20 97 Room Air 21 08/09/18 17:41 97 144/95 08/09/18 16:00 98.5 97 20 144/95 (111) 94 08/09/18 15:30 88 Height (Feet): 5 Height (Inches): 6.00 Weight (Pounds): 232 General Appearance: WD/WN, no acute distress HEENT: normocephalic, atraumatic, anicteric, mucous membranes moist, PERRL, EOMI, pharynx normal, supple, no JVD Respiratory/Chest: chest wall non-tender, no respiratory distress, no accessory muscle use, decreased breath sounds, crackles/rales Cardiovascular: normal peripheral pulses, normal rate, regular rhythm, no gallop/murmur, no JVD Abdomen: normal bowel sounds, soft, non tender, no organomegaly, non distended , no mass, no scars Genitourinary: normal external genitalia Extremities: no cyanosis, no clubbing, other - left hand blisters Skin: no rash, no lesions, ulcers 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, alert, responsive Lymphatic: no neck adenopathy, no groin adenopathy Musculoskeletal: normal muscle bulk, no effusion Laboratory Tests Test 08/10/18 05:56 White Blood Count 10.6 K/UL (4.8-10.8) Red Blood Count 4.16 M/UL (4.70-6.10) L Hemoglobin 11.6 G/DL (14.2-18.0) L Hematocrit 36.1 % (42.0-52.0) L Mean Corpuscular Volume 87 FL (80-99) Mean Corpuscular Hemoglobin 28.0 PG (27.0-31.0) Mean Corpuscular Hemoglobin Concent 32.2 G/DL (32.0-36.0) Red Cell Distribution Width 14.9 % (11.6-14.8) H Platelet Count 239 K/UL (150-450) Mean Platelet Volume 6.4 FL (6.5-10.1) L Neutrophils (%) (Auto) 80.3 % (45.0-75.0) H Lymphocytes (%) (Auto) 8.3 % (20.0-45.0) L Monocytes (%) (Auto) 8.2 % (1.0-10.0) Eosinophils (%) (Auto) 2.5 % (0.0-3.0) Basophils (%) (Auto) 0.7 % (0.0-2.0) Sodium Level 141 MMOL/L (136-145) Potassium Level 4.0 MMOL/L (3.5-5.1) Chloride Level 105 MMOL/L (98-107) Carbon Dioxide Level 28 MMOL/L (21-32) Anion Gap 8 mmol/L (5-15) Blood Urea Nitrogen 23 mg/dL (7-18) H Creatinine 1.2 MG/DL (0.55-1.30) Estimat Glomerular Filtration Rate mL/min (>60) Glucose Level 158 MG/DL (74-106) H Calcium Level 8.6 MG/DL (8.5-10.1) Total Bilirubin 0.4 MG/DL (0.2-1.0) Aspartate Amino Transf (AST/SGOT) 19 U/L (15-37) Alanine Aminotransferase (ALT/SGPT) 26 U/L (12-78) Alkaline Phosphatase 87 U/L (46-116) Total Protein 6.1 G/DL (6.4-8.2) L Albumin 2.0 G/DL (3.4-5.0) L Globulin 4.1 g/dL Albumin/Globulin Ratio 0.5 (1.0-2.7) L Current Medications Medications (Trade) Dose Ordered Sig/Colin Route PRN Reason Start Time Stop Time Status Last Admin Dose Admin Acetaminophen (Tylenol) 650 mg Q4H PRN GT Mild Pain/Temp > 100.5 08/09/18 14:15 09/08/18 14:14 08/10/18 05:36 Albuterol/ Ipratropium (Albuterol/ Ipratropium) 3 ml Q4H PRN HHN Shortness of Breath 08/09/18 12:04 08/14/18 12:03 Albuterol/ Ipratropium (Albuterol/ Ipratropium) 3 ml Q6HRT HHN 08/09/18 13:00 08/14/18 12:50 08/10/18 12:10 Atorvastatin Calcium (Lipitor) 20 mg BEDTIME GT 08/09/18 21:00 09/02/18 20:59 08/09/18 20:39 Carbidopa/Levodopa (Sinemet 25/100) 1 tab THREE TIMES A DAY GT 08/09/18 18:00 09/02/18 17:59 08/10/18 12:59 Ceftriaxone Sodium 2 gm/ Dextrose 55 ml @ 110 mls/hr Q24H IVPB 08/09/18 18:00 08/20/18 17:59 08/09/18 17:55 Diltiazem HCl (Cardizem) 60 mg EVERY 6 HOURS GT 08/09/18 18:00 09/08/18 17:59 08/10/18 12:59 Gabapentin (Neurontin) 100 mg QHS GT 08/09/18 21:00 09/02/18 20:59 08/09/18 20:40 Heparin Sodium (Porcine) (Heparin 5000 units/ml) 5,000 units EVERY 12 HOURS SUBQ 08/09/18 21:00 09/04/18 20:59 08/10/18 08:16 Linezolid 300 ml @ 300 mls/hr Q12HR IVPB 08/09/18 21:00 08/20/18 20:59 08/10/18 08:13 Lorazepam (Ativan 2mg/ml 1ml) 1 mg Q4H PRN IV For Anxiety 08/09/18 12:05 08/16/18 12:04 Ondansetron HCl (Zofran) 4 mg Q6H PRN IVP Nausea & Vomiting 08/09/18 12:05 09/08/18 12:04 Pantoprazole (Protonix) 40 mg DAILY IVP 08/10/18 09:00 09/02/18 08:59 08/10/18 08:14 Sodium Chloride 1,000 ml @ 20 mls/hr Q24H IV 08/09/18 12:04 09/08/18 12:03 08/10/18 12:59 Vitamin B Complex/ Vit C/Folic Acid (Nephrovite) 1 tab DAILY GT 08/10/18 09:00 09/03/18 08:59 08/10/18 08:14 Srini Sam M.D. Aug 10, 2018 15:20
--- NOTE | 2018-08-10 16:58 | Surgery Progress Note ---
Surgery Progress Note Subjective Additional Comments low grade fevers. leukocytosis resolved. exam stable. dressing clean and changed. Objective Last 24 Hour Vital Signs Date Time Temp Pulse Resp B/P (MAP) Pulse Ox O2 Delivery O2 Flow Rate FiO2 08/10/18 15:45 99.6 94 20 131/77 (95) 93 08/10/18 12:59 86 139/87 08/10/18 12:16 86 16 99 Room Air 21 08/10/18 12:10 92 20 95 Room Air 21 08/10/18 12:00 97.9 82 18 139/87 (104) 95 08/10/18 11:27 90 08/10/18 09:00 Room Air Room Air Room Air 08/10/18 08:00 98.2 87 20 119/76 (90) 94 08/10/18 07:46 87 08/10/18 07:05 95 20 99 Room Air 21 08/10/18 06:58 Room Air 21 08/10/18 06:58 84 20 95 Room Air 21 08/10/18 06:58 95 Room Air 21 08/10/18 06:16 99.0 08/10/18 06:06 99.0 08/10/18 05:35 108 149/91 08/10/18 04:00 100.0 103 20 149/91 (110) 92 08/10/18 04:00 108 08/10/18 00:22 83 20 99 Room Air 21 08/10/18 00:13 78 20 96 Room Air 21 08/10/18 00:00 97.9 93 24 134/91 (105) 96 08/09/18 23:44 93 134/91 08/09/18 23:32 99 08/09/18 21:00 Room Air Room Air Room Air 08/09/18 20:00 97.1 92 16 136/87 (103) 92 08/09/18 19:22 85 08/09/18 19:18 89 20 99 Room Air 21 08/09/18 18:59 Room Air 21 08/09/18 18:59 97 Room Air 21 08/09/18 18:59 78 20 97 Room Air 21 08/09/18 17:41 97 144/95 I&O Intake and Output 08/09/18 08/10/18 19:00 07:00 Intake Total 403 ml Balance 403 ml Tube Feeding 403 ml # Bowel Movements 3 Dressing: dry Wound: clean Drains: other Cardiovascular: RSR Respiratory: clear Abdomen: soft, non-tender, present bowel sounds Extremities: edema Laboratory Tests Test 08/10/18 05:56 White Blood Count 10.6 K/UL (4.8-10.8) Red Blood Count 4.16 M/UL (4.70-6.10) L Hemoglobin 11.6 G/DL (14.2-18.0) L Hematocrit 36.1 % (42.0-52.0) L Mean Corpuscular Volume 87 FL (80-99) Mean Corpuscular Hemoglobin 28.0 PG (27.0-31.0) Mean Corpuscular Hemoglobin Concent 32.2 G/DL (32.0-36.0) Red Cell Distribution Width 14.9 % (11.6-14.8) H Platelet Count 239 K/UL (150-450) Mean Platelet Volume 6.4 FL (6.5-10.1) L Neutrophils (%) (Auto) 80.3 % (45.0-75.0) H Lymphocytes (%) (Auto) 8.3 % (20.0-45.0) L Monocytes (%) (Auto) 8.2 % (1.0-10.0) Eosinophils (%) (Auto) 2.5 % (0.0-3.0) Basophils (%) (Auto) 0.7 % (0.0-2.0) Sodium Level 141 MMOL/L (136-145) Potassium Level 4.0 MMOL/L (3.5-5.1) Chloride Level 105 MMOL/L (98-107) Carbon Dioxide Level 28 MMOL/L (21-32) Anion Gap 8 mmol/L (5-15) Blood Urea Nitrogen 23 mg/dL (7-18) H Creatinine 1.2 MG/DL (0.55-1.30) Estimat Glomerular Filtration Rate mL/min (>60) Glucose Level 158 MG/DL (74-106) H Calcium Level 8.6 MG/DL (8.5-10.1) Total Bilirubin 0.4 MG/DL (0.2-1.0) Aspartate Amino Transf (AST/SGOT) 19 U/L (15-37) Alanine Aminotransferase (ALT/SGPT) 26 U/L (12-78) Alkaline Phosphatase 87 U/L (46-116) Total Protein 6.1 G/DL (6.4-8.2) L Albumin 2.0 G/DL (3.4-5.0) L Globulin 4.1 g/dL Albumin/Globulin Ratio 0.5 (1.0-2.7) L Plan Problems: (1) Left hip pain (2) Hypokalemia (3) Fall (4) Trochanteric fracture of left femur (5) Anemia (6) Dysphagia causing pulmonary aspiration with swallowing (7) Acute CVA (cerebrovascular accident) (8) Encephalopathy (9) CKD (chronic kidney disease) (10) Renal mass, right (11) STUART (acute kidney injury) (12) Leukocytosis (13) Aspiration pneumonia (14) FTT (failure to thrive) in adult (15) Encounter for respirator [ventilator] dependence during power failure (16) Airway intubation performed without difficulty (17) Afib (18) Acute renal failure (19) LLL pneumonia (20) Dementia (21) Sepsis Assessment & Plan: cont abx as per ID leukocytosis resolved trend labs unlikely etiology of infection wounds will monitor and follow with recs DAILY ESTIMATED NEEDS: Needs based on Obese, wound, bedbound, 79kg adj 22-25 kcals/kg 3661-5866 total kcals 1.25-1.5 g protein/kg 99-119 g total protein 20-25 mL/kg 0543-7651 total fluid mLs NUTRITION DIAGNOSIS: * Swallowing difficulty R/T dysphagia, h/o CVA w/ hemiplegia, evidenced by s/p recent PEG placement, now extubated, on room air. * Increased protein needs r/t wound healing as evidenced by pt partial thickness wounds @ R and L clefts of buttocks and sacrum CURRENT TF:Glucerna 1.5 @50ml /hr x24 hrs ENTERAL NUTRITION RECOMMENDATIONS: Glucerna 1.5 @50ml /hr x24 hrs to provide 1200ml, 1800 kcal, 99g prot, 911ml free H2O - Maintain current TF - Flush per MD/ HOB over 30 degrees ADDITIONAL RECOMMENDATIONS: 1) Monitor BGs, need for SSI 2) Check A1C for eval of glycemic control- prev episodes of hyperglycemia 3) Sacral wound: Add via GT-> MARTHA BID + Vit C 250mg daily 4) Recalibrate bed scale: conflicting weights EMR wt: 220#, Bed scale wt: 238# 5) Check lytes daily, replete as needed (22) Respiratory failure, acute (23) Acute respiratory failure (24) Left arm cellulitis (25) Decubitus skin ulcer Assessment & Plan: Pt presented with non-blanchable erythema with partial thickness pressure injuries to R and L clefts of buttocks and sacrum.Base of wounds moist and viable. Base of scrotum red. Reabsorbing Blood Blister noted to lateral L foot (L)1cm x (W)4.5cm.Periwound pink and blanchable. Both heels are firm and blanchable. Pt also noted to have multiple bullae filled bullae on all 5 phalanges ,and palm of L hand.Single serous filled bullae noted in palm at base of thumb. Open blister noted to dorsal L hand. in evaluating hand after 24hrs seems like possible sheering injury, possible patient holding onto something? will continue to care for wounds Tx.Plan: Cleanse Blister dorsal L hand with Saline. Maintain Versatel mesh to wound. Apply Silvasorb gel. Cover with Optifoam drsg. Change every 7 days and prn. Wash L hand with foam cleanser.Pat dry. Cover with ABD pad. Wrap loosely with Kerlix Daily and prn. Apply Cavilon To blister Lateral L foot. Cover with Optifoam drsg. Change every 7 days and prn. Apply Cavilon Skin Barrier to both heels. Off-load heels with pillow. APM/MARJAN Mattress overlay. Reposition at least every 2hours or as tolerated. Jakub Whitman Aug 10, 2018 16:58
[2018-08-10] MEDS: cefTRIAXone 2 GM in D5W 55 ML IVPB SCH (17:42)
--- NOTE | 2018-08-10 18:00 | NUR ---
NURSE NOTES: No residual noted. Oral care performed. Notified respiratory for inner nasal suction after next scheduled breathing treatment.
--- NOTE | 2018-08-10 19:01 | NUR ---
HAND-OFF: Report given to SHANNON Solis.
--- NOTE | 2018-08-10 19:32 | NUR ---
NURSE NOTES: Received patient from Adrian ORTEGA. Patient in bed, bed locked, in low position, bed alarm on. Call light within reach. 20ml of gastric residual from PEG, on Glucerna 1.5 at 50ml/hr. Tube patent and flushed. On room air, bilateral rhonchi on auscultation. Respiratory will NT suction patient. Will continue to monitor. Park catheter intact, patent, with clear yellow output. Normal saline infusing at 20ml/hr through right hand PIV #20 started on 08/06/18, patent, dressing intact, no signs of infiltration or infection.
[2018-08-10] MEDS: Atorvastatin 20mg tab GT SCH (20:34)
--- NOTE | 2018-08-11 00:34 | Pulmonolgy Critical Care Note ---
Critical Care - Asmt/Plan Assessment/Plan: Pulmonary CCM Progress Note Patient seen 08/10/2018 Critical Care - Asmt/Plan Problems: (1) Sepsis Assessment & Plan: HEMODYNAMICALLY STABLE (2) Respiratory failure, acute Assessment & Plan: EXTUBATED 08/06 (3) Airway intubation performed without difficulty Assessment & Plan: EXTUBATED 08/06 (4) LLL pneumonia Assessment & Plan: CLINICALLY IMPROVED (5) Left arm cellulitis (6) STUART (acute kidney injury) Assessment & Plan: RESOLVED (7) CKD (chronic kidney disease) (8) Dementia (9) Leukocytosis (10) FTT (failure to thrive) in adult (11) Afib Critical Care - Objective Vital Signs Noted Status: awake Condition: critical HEENT: atraumatic, normocephalic Lungs: CTAB Heart: HR/BP stable, irregular Abdomen: soft, non-tender, active bowel sounds Extremities: no C/C/E Micro: Respiratory: monitor respiratory status, O2, , HHN's Cardiac: other - Dilt, cards recs, off A/C 2/2 bleeding risk (prior GIB), ? Watchmann Renal: decrease IV fluid - to 20 cc/hr, check electrolytes, other - Replete K Infectious Disease: continue antibiotics - Zyvox per ID, other - wound care Gastrointestinal: continue feedings/current rate Endocrine: monitor blood sugar Hematologic: monitor H/H Neurologic: keep patient comfortable - monitor MS Prophylaxis: Protonix, Heparin - SQ Disposition: transfer to - [facility] Time Spent (Minutes): 30 Notes Reviewed: central office equipment installer, cardio, ID Discussed with: nurses, consultants, other - DNAR Critical Care - Subjective ROS Limited/Unobtainable: Yes Intubation Day: extubated Interval Events: 100% on 2L Awake follows basic commands No cough no SOB no wheezing no FC TF's started Condition: stable IV Access: peripheral EKG Rhythm: Atrial Fibrillation FI02: 28 Vent Support Breath Rate: 16 Vent Support Mode: CPAP Vent Tidal Volume: 500 Sputum Amount: None PEEP: 5.0 PIP: 14 Secretions: None Fluids: NS@50 Tube Feeding Amount: 40 Laboratory Tests Noted Test 08/07/18 09:20 White Blood Count 12.6 K/UL (4.8-10.8) H Red Blood Count 4.38 M/UL (4.70-6.10) L Hemoglobin 12.1 G/DL (14.2-18.0) L Hematocrit 37.6 % (42.0-52.0) L Mean Corpuscular Volume 86 FL (80-99) Mean Corpuscular Hemoglobin 27.7 PG (27.0-31.0) Mean Corpuscular Hemoglobin Concent 32.2 G/DL (32.0-36.0) Red Cell Distribution Width 14.1 % (11.6-14.8) Platelet Count 219 K/UL (150-450) Mean Platelet Volume 6.2 FL (6.5-10.1) L Neutrophils (%) (Auto) 82.6 % (45.0-75.0) H Lymphocytes (%) (Auto) 7.2 % (20.0-45.0) L Monocytes (%) (Auto) 8.5 % (1.0-10.0) Eosinophils (%) (Auto) 0.9 % (0.0-3.0) Basophils (%) (Auto) 0.9 % (0.0-2.0) Sodium Level 142 MMOL/L (136-145) Potassium Level 3.2 MMOL/L (3.5-5.1) L Chloride Level 106 MMOL/L (98-107) Carbon Dioxide Level 23 MMOL/L (21-32) Anion Gap 13 mmol/L (5-15) Blood Urea Nitrogen 18 mg/dL (7-18) Creatinine 1.0 MG/DL (0.55-1.30) Estimat Glomerular Filtration Rate mL/min (>60) Glucose Level 90 MG/DL (74-106) Calcium Level 8.6 MG/DL (8.5-10.1) Critical Care - Objective Last 24 Hour Vital Signs Date Time Temp Pulse Resp B/P (MAP) Pulse Ox O2 Delivery O2 Flow Rate FiO2 08/10/18 23:57 99.3 92 18 119/70 (86) 93 08/10/18 23:43 92 119/70 08/10/18 22:58 98.2 08/10/18 22:57 98.2 08/10/18 20:01 Room Air Room Air Room Air 08/10/18 20:00 100.2 106 19 141/84 (103) 91 08/10/18 19:20 104 08/10/18 18:53 Room Air 21 08/10/18 18:53 82 18 96 Room Air 21 08/10/18 18:52 95 Room Air 21 08/10/18 18:44 83 18 92 Room Air 21 08/10/18 17:42 94 131/77 08/10/18 15:45 99.6 94 20 131/77 (95) 93 08/10/18 15:32 92 08/10/18 12:59 86 139/87 08/10/18 12:16 86 16 99 Room Air 21 08/10/18 12:10 92 20 95 Room Air 21 08/10/18 12:00 97.9 82 18 139/87 (104) 95 08/10/18 11:27 90 08/10/18 09:00 Room Air Room Air Room Air 08/10/18 08:00 98.2 87 20 119/76 (90) 94 08/10/18 07:46 87 08/10/18 07:05 95 20 99 Room Air 21 08/10/18 06:58 Room Air 21 08/10/18 06:58 84 20 95 Room Air 21 08/10/18 06:58 95 Room Air 21 08/10/18 06:16 99.0 08/10/18 05:35 108 149/91 08/10/18 04:00 100.0 103 20 149/91 (110) 92 08/10/18 04:00 108 Critical Care - Subjective ROS Limited/Unobtainable: No FI02: 21 Vent Support Breath Rate: 16 Vent Support Mode: CPAP Vent Tidal Volume: 500 Sputum Amount: None PEEP: 5.0 PIP: 14 Tube Feeding Amount: 403 I&O: Intake and Output 08/10/18 08/11/18 19:00 07:00 Intake Total 300 ml Output Total 700 ml Balance -400 ml IV Total 300 ml Output Urine Total 700 ml # Bowel Movements 1 Richie Grove MD Aug 11, 2018 00:34
[2018-08-11] MEDS: Acetaminophen 650mg/20.3ml GT PRN (00:51)
[2018-08-11] MEDS: Albuterol/Ipratropium 3ml neb HHN SCH ×4 (00:55→19:27)
[2018-08-11 04:00] VITALS: BP 119/66
[2018-08-11] MEDS: dilTIAZem HCl 60mg tab GT SCH ×3 (05:18→17:27)
[2018-08-11 06:48] LABS: ANION GAP 9 mmol/L (5-15); BLOOD UREA NITROGEN 27 mg/dL (7-18); CALCIUM 8.5 MG/DL (8.5-10.1); CARBON DIOXIDE 28 MMOL/L (21-32); CHLORIDE 102 MMOL/L (98-107); CREATININE 1.2 MG/DL (0.55-1.30); POTASSIUM 4.1 MMOL/L (3.5-5.1); SODIUM 139 MMOL/L (136-145)
[2018-08-11 06:58] LABS: BASOPHILS % (AUTO) 0.9 % (0.0-2.0); EOSINOPHILS % (AUTO) 3.1 % (0.0-3.0); HEMATOCRIT 36.6 % (42.0-52.0); HEMOGLOBIN 11.8 G/DL (14.2-18.0); LYMPHOCYTES % (AUTO) 15.9 % (20.0-45.0); MEAN CORPUSCULAR VOLUME 87 FL (80-99); MONOCYTES % (AUTO) 6.4 % (1.0-10.0); NEUTROPHILS % (AUTO) 73.7 % (45.0-75.0); PLATELET COUNT 229 K/UL (150-450); RED BLOOD COUNT 4.21 M/UL (4.70-6.10); WHITE BLOOD COUNT 9.9 K/UL (4.8-10.8)
--- NOTE | 2018-08-11 07:00 | NUR ---
NURSE NOTES: Received patient from Rekha Patricia. Patient in bed, bed locked, in low position, bed alarm on. Call light within reach. No gastric residual from PEG, on Glucerna 1.5 at 50ml/hr. Tube patent and flushed. On room air and breathing even and unlabored. Patient is on commercial lines assistant. Park catheter intact, patent, with clear yellow output. Normal saline infusing at 20ml/hr through right hand PIV #20 started on 08/06/18, patent, dressing intact, no signs of infiltration or infection.
--- NOTE | 2018-08-11 07:03 | NUR ---
HAND-off. Report given to Adrian ORTEGA. Patient in stable condition. Bed alarm on, locked in low position, call light within reach.
[2018-08-11 08:00] VITALS: BP 136/80
--- NOTE | 2018-08-11 08:00 | NUR ---
NURSE NOTES: No residual noted. G tube is patent and intact. Continued Glucerna 1.5 @ 50ml/hr.
[2018-08-11] MEDS: Nephrovite tab (Rena-Vite) GT SCH (08:20)
[2018-08-11] MEDS: Pantoprazole Inj IVP SCH (08:21)
[2018-08-11] MEDS: Levodopa/Carbidopa 25/100 tab GT SCH ×3 (08:21→17:27)
[2018-08-11] MEDS: Heparin 5000 units/ml inj SUBQ SCH ×2 (08:24→22:09)
[2018-08-11 12:00] VITALS: BP 152/92
--- NOTE | 2018-08-11 13:00 | NUR ---
NURSE NOTES: No residual noted. G tube is patent and intact. Continued Glucerna 1.5 @ 50ml/hr.
--- NOTE | 2018-08-11 13:27 | Cardiac Electrophysiology PN ---
Assessment/Plan Assessment/Plan 1. Atrial fib with controlled rate on Cardizem 60 qid Anticoagulation held due to bleeding and low platelet count 2. HTN on Cardizem 3. Hyperlipidemia on atorvastatin 4. Mild aortic stenosis 5. Aspiration PNA 6. S/p resp failure DW RN Subjective Subjective In atrial fib with controlled rate. Able to say his name today. No CP or SOB Objective Last 24 Hour Vital Signs Date Time Temp Pulse Resp B/P (MAP) Pulse Ox O2 Delivery O2 Flow Rate FiO2 08/11/18 13:14 84 18 98 Room Air 21 08/11/18 13:06 81 16 94 Room Air 21 08/11/18 12:47 91 152/92 08/11/18 12:00 98.2 91 20 152/92 (112) 94 08/11/18 09:00 Room Air Room Air Room Air 08/11/18 08:45 78 18 98 Room Air 21 08/11/18 08:35 95 Room Air 21 08/11/18 08:35 78 18 95 Room Air 21 08/11/18 08:35 Room Air 21 08/11/18 08:08 78 08/11/18 08:00 97.5 75 20 136/80 (98) 94 08/11/18 05:18 81 132/75 08/11/18 04:00 97.7 74 17 119/66 (83) 92 08/11/18 03:36 78 08/11/18 02:07 96.3 08/11/18 02:06 96.3 08/11/18 01:05 77 18 97 Room Air 21 08/11/18 00:55 75 18 95 Room Air 21 08/10/18 23:57 99.3 92 18 119/70 (86) 93 08/10/18 23:43 92 119/70 08/10/18 23:37 89 08/10/18 22:58 98.2 08/10/18 20:01 Room Air Room Air Room Air 08/10/18 20:00 100.2 106 19 141/84 (103) 91 08/10/18 19:20 104 08/10/18 18:53 Room Air 21 08/10/18 18:53 82 18 96 Room Air 21 08/10/18 18:52 95 Room Air 21 08/10/18 18:44 83 18 92 Room Air 21 4/20/19 17:42 94 131/77 08/10/18 15:45 99.6 94 20 131/77 (95) 93 08/10/18 15:32 92 Intake and Output 08/10/18 08/11/18 19:00 07:00 Intake Total 300 ml 1040 ml Output Total 700 ml 600 ml Balance -400 ml 440 ml IV Total 300 ml 520 ml Tube Feeding 520 ml Output Urine Total 700 ml 600 ml # Bowel Movements 1 Laboratory Tests Test 08/11/18 05:41 White Blood Count 9.9 K/UL (4.8-10.8) Red Blood Count 4.21 M/UL (4.70-6.10) L Hemoglobin 11.8 G/DL (14.2-18.0) L Hematocrit 36.6 % (42.0-52.0) L Mean Corpuscular Volume 87 FL (80-99) Mean Corpuscular Hemoglobin 27.9 PG (27.0-31.0) Mean Corpuscular Hemoglobin Concent 32.1 G/DL (32.0-36.0) Red Cell Distribution Width 15.0 % (11.6-14.8) H Platelet Count 229 K/UL (150-450) Mean Platelet Volume 5.6 FL (6.5-10.1) L Neutrophils (%) (Auto) 73.7 % (45.0-75.0) Lymphocytes (%) (Auto) 15.9 % (20.0-45.0) L Monocytes (%) (Auto) 6.4 % (1.0-10.0) Eosinophils (%) (Auto) 3.1 % (0.0-3.0) H Basophils (%) (Auto) 0.9 % (0.0-2.0) Sodium Level 139 MMOL/L (136-145) Potassium Level 4.1 MMOL/L (3.5-5.1) Chloride Level 102 MMOL/L (98-107) Carbon Dioxide Level 28 MMOL/L (21-32) Anion Gap 9 mmol/L (5-15) Blood Urea Nitrogen 27 mg/dL (7-18) H Creatinine 1.2 MG/DL (0.55-1.30) Estimat Glomerular Filtration Rate mL/min (>60) Glucose Level 133 MG/DL (74-106) H Calcium Level 8.5 MG/DL (8.5-10.1) Objective HEENT: atraumatic, normocephalic. No JVD Lungs: rhonchi Heart: HR/BP stable, irregular Abdomen: soft, non-tender, active bowel sounds, feeding tube Extremities: edema - 1+, cyanosis - no, clubbing - no Decubiti: sacral, stage - 2 Gary Bay MD Aug 11, 2018 13:27
[2018-08-11] MEDS ORDERED: Lidocaine 1% Plain 30 ml INJ PRN (14:15)
[2018-08-11] MEDS ORDERED: Heparin1,000 units/500ml Premix(Conc:2 units/ml) IV PRN (14:15)
--- NOTE | 2018-08-11 14:19 | General Progress Note ---
Assessment/Plan Status: stable Assessment: 1. Acute Respiratory failure - in tele. Pulm following. on tube feeding. 2. Asp Pneumonia Cont IV ABX per ID. improved. 3. sepsis - Cont IV ABX per ID. improved. D/C planning for tomorrow after Picc line placement. 4. Hand cellulitis - cont IV ABX. 5. Chronic A fib - rate controlled - software engineering manager is following. 6. Parkinson dementia - cont home meds. 7. Chronic Lt leg Popliteal thrombosis - off anticoagulation due to high risk of bleeding and previous hx of GI bleeding. 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 8. Chronic kidney disease - stable. 9. Hx of renal mass - family refused the work up last admission. currently DNR. 10. Hx of CVA with one sided hemiplegia 11. Depression - cont home meds. 12. Neuropathy - stable. 13. Hyperlipidemia - cont home med. Subjective Date patient seen: Aug 11, 2018 Time patient seen: 13:50 Constitutional: Reports: weakness HEENT: Reports: no symptoms Cardiovascular: Reports: no symptoms Respiratory: Reports: no symptoms Gastrointestinal/Abdominal: Reports: no symptoms Genitourinary: Reports: no symptoms Neurologic/Psychiatric: Reports: no symptoms Endocrine: Reports: no symptoms Hematologic/Lymphatic: Reports: no symptoms Allergies: Coded Allergies: MORPHINE (Verified Allergy, Unknown, 03/25/18) PENICILLINS (Verified Allergy, Unknown, 03/05/18) Subjective He is awake and doing well. Afebrile. No sob or chest pain. Objective Last 24 Hour Vital Signs Date Time Temp Pulse Resp B/P (MAP) Pulse Ox O2 Delivery O2 Flow Rate FiO2 08/11/18 13:14 84 18 98 Room Air 08/11/18 13:06 81 16 94 Room Air 08/11/18 12:47 91 152/92 08/11/18 12:00 98.2 91 20 152/92 (112) 94 08/11/18 11:36 96 08/11/18 09:00 Room Air Room Air Room Air 08/11/18 08:45 78 18 98 Room Air 08/11/18 08:35 95 Room Air 21 08/11/18 08:35 78 18 95 Room Air 08/11/18 08:35 Room Air 08/11/18 08:08 78 08/11/18 08:00 97.5 75 20 136/80 (98) 94 08/11/18 05:18 81 132/75 08/11/18 04:00 97.7 74 17 119/66 (83) 92 08/11/18 03:36 78 08/11/18 02:07 96.3 08/11/18 02:06 96.3 08/11/18 01:05 77 18 97 Room Air 21 08/11/18 00:55 75 18 95 Room Air 21 08/10/18 23:57 99.3 92 18 119/70 (86) 93 08/10/18 23:43 92 119/70 08/10/18 23:37 89 08/10/18 22:58 98.2 08/10/18 20:01 Room Air Room Air Room Air 08/10/18 20:00 100.2 106 19 141/84 (103) 91 08/10/18 19:20 104 08/10/18 18:53 Room Air 21 08/10/18 18:53 82 18 96 Room Air 21 08/10/18 18:52 95 Room Air 21 08/10/18 18:44 83 18 92 Room Air 21 08/10/18 17:42 94 131/77 08/10/18 15:45 99.6 94 20 131/77 (95) 93 08/10/18 15:32 92 Intake and Output 08/10/18 08/11/18 19:00 07:00 Intake Total 300 ml 1040 ml Output Total 700 ml 600 ml Balance -400 ml 440 ml IV Total 300 ml 520 ml Tube Feeding 520 ml Output Urine Total 700 ml 600 ml # Bowel Movements 1 Laboratory Tests 08/11/18 05:41: White Blood Count 9.9, Red Blood Count 4.21L, Hemoglobin 11.8L, Hematocrit 36.6L , Mean Corpuscular Volume 87, Mean Corpuscular Hemoglobin 27.9, Mean Corpuscular Hemoglobin Concent 32.1, Red Cell Distribution Width 15.0H, Platelet Count 229, Mean Platelet Volume 5.6L, Neutrophils (%) (Auto) 73.7, Lymphocytes (%) (Auto) 15.9L, Monocytes (%) (Auto) 6.4, Eosinophils (%) (Auto) 3.1H, Basophils (%) (Auto) 0.9, Sodium Level 139, Potassium Level 4.1, Chloride Level 102, Carbon Dioxide Level 28, Anion Gap 9, Blood Urea Nitrogen 27H, Creatinine 1.2, Estimat Glomerular Filtration Rate , Glucose Level 133H, Calcium Level 8.5 Height (Feet): 5 Height (Inches): 6.00 Weight (Pounds): 236 General Appearance: no apparent distress, alert EENT: normal ENT inspection Neck: non-tender, normal alignment, supple Cardiovascular: regularly irregular Respiratory/Chest: normal breath sounds, no respiratory distress Abdomen: normal bowel sounds, non tender, soft Extremities: normal range of motion, non-tender Edema: no edema noted Arm (L), no edema noted Arm (R), no edema noted Leg (L), no edema noted Leg (R), no edema noted Pedal (L), no edema noted Pedal (R), no edema noted Generalized Neurologic: alert, responsive Skin: warm/dry Lymphatic: normal anterior cervical (L), normal anterior cervical (R), normal posterior cervical (L), normal posterior cervical (R), normal submandibular (L) , normal submandibular (R), normal supraclavicular (L), normal supraclavicular ( R), normal axillary (L), normal axillary (R), normal inguinal (L), normal inguinal (R), normal other Shelby Arrington MD Aug 11, 2018 14:19
--- NOTE | 2018-08-11 14:55 | Surgery Progress Note ---
Surgery Progress Note Subjective Additional Comments no acute events. stable. comfortable. dressing change going okay. blister resolving Objective Last 24 Hour Vital Signs Date Time Temp Pulse Resp B/P (MAP) Pulse Ox O2 Delivery O2 Flow Rate FiO2 08/11/18 13:14 84 18 98 Room Air 21 08/11/18 13:06 81 16 94 Room Air 21 08/11/18 12:47 91 152/92 08/11/18 12:00 98.2 91 20 152/92 (112) 94 08/11/18 11:36 96 08/11/18 09:00 Room Air Room Air Room Air 08/11/18 08:45 78 18 98 Room Air 21 08/11/18 08:35 95 Room Air 21 08/11/18 08:35 78 18 95 Room Air 21 08/11/18 08:35 Room Air 21 08/11/18 08:08 78 08/11/18 08:00 97.5 75 20 136/80 (98) 94 08/11/18 05:18 81 132/75 08/11/18 04:00 97.7 74 17 119/66 (83) 92 08/11/18 03:36 78 08/11/18 02:07 96.3 08/11/18 02:06 96.3 08/11/18 01:05 77 18 97 Room Air 21 08/11/18 00:55 75 18 95 Room Air 21 08/10/18 23:57 99.3 92 18 119/70 (86) 93 08/10/18 23:43 92 119/70 08/10/18 23:37 89 08/10/18 22:58 98.2 08/10/18 20:01 Room Air Room Air Room Air 08/10/18 20:00 100.2 106 19 141/84 (103) 91 08/10/18 19:20 104 08/10/18 18:53 Room Air 21 08/10/18 18:53 82 18 96 Room Air 21 08/10/18 18:52 95 Room Air 21 08/10/18 18:44 83 18 92 Room Air 21 08/10/18 17:42 94 131/77 08/10/18 15:45 99.6 94 20 131/77 (95) 93 08/10/18 15:32 92 I&O Intake and Output 08/10/18 08/11/18 19:00 07:00 Intake Total 300 ml 1040 ml Output Total 700 ml 600 ml Balance -400 ml 440 ml IV Total 300 ml 520 ml Tube Feeding 520 ml Output Urine Total 700 ml 600 ml # Bowel Movements 1 Dressing: dry Wound: clean Cardiovascular: RSR Respiratory: clear Abdomen: soft, flat, present bowel sounds Extremities: no tenderness, no cyanosis Laboratory Tests Test 08/11/18 05:41 White Blood Count 9.9 K/UL (4.8-10.8) Red Blood Count 4.21 M/UL (4.70-6.10) L Hemoglobin 11.8 G/DL (14.2-18.0) L Hematocrit 36.6 % (42.0-52.0) L Mean Corpuscular Volume 87 FL (80-99) Mean Corpuscular Hemoglobin 27.9 PG (27.0-31.0) Mean Corpuscular Hemoglobin Concent 32.1 G/DL (32.0-36.0) Red Cell Distribution Width 15.0 % (11.6-14.8) H Platelet Count 229 K/UL (150-450) Mean Platelet Volume 5.6 FL (6.5-10.1) L Neutrophils (%) (Auto) 73.7 % (45.0-75.0) Lymphocytes (%) (Auto) 15.9 % (20.0-45.0) L Monocytes (%) (Auto) 6.4 % (1.0-10.0) Eosinophils (%) (Auto) 3.1 % (0.0-3.0) H Basophils (%) (Auto) 0.9 % (0.0-2.0) Sodium Level 139 MMOL/L (136-145) Potassium Level 4.1 MMOL/L (3.5-5.1) Chloride Level 102 MMOL/L (98-107) Carbon Dioxide Level 28 MMOL/L (21-32) Anion Gap 9 mmol/L (5-15) Blood Urea Nitrogen 27 mg/dL (7-18) H Creatinine 1.2 MG/DL (0.55-1.30) Estimat Glomerular Filtration Rate mL/min (>60) Glucose Level 133 MG/DL (74-106) H Calcium Level 8.5 MG/DL (8.5-10.1) Plan Problems: (1) Left hip pain (2) Hypokalemia (3) Fall (4) Trochanteric fracture of left femur (5) Anemia (6) Dysphagia causing pulmonary aspiration with swallowing (7) Acute CVA (cerebrovascular accident) (8) Encephalopathy (9) CKD (chronic kidney disease) (10) Renal mass, right (11) STUART (acute kidney injury) (12) Leukocytosis (13) Aspiration pneumonia (14) FTT (failure to thrive) in adult (15) Encounter for respirator [ventilator] dependence during power failure (16) Airway intubation performed without difficulty (17) Afib (18) Acute renal failure (19) LLL pneumonia (20) Dementia (21) Sepsis Assessment & Plan: cont abx as per ID leukocytosis resolved trend labs unlikely etiology of infection wounds plan for picc line tomorrow d/c planning after picc will monitor and follow with recs DAILY ESTIMATED NEEDS: Needs based on Obese, wound, bedbound, 79kg adj 22-25 kcals/kg [id number] total kcals 1.25-1.5 g protein/kg 99-119 g total protein 20-25 mL/kg 4874-8852 total fluid mLs NUTRITION DIAGNOSIS: * Swallowing difficulty R/T dysphagia, h/o CVA w/ hemiplegia, evidenced by s/p recent PEG placement, now extubated, on room air. * Increased protein needs r/t wound healing as evidenced by pt partial thickness wounds @ R and L clefts of buttocks and sacrum CURRENT TF:Glucerna 1.5 @50ml /hr x24 hrs ENTERAL NUTRITION RECOMMENDATIONS: Glucerna 1.5 @50ml /hr x24 hrs to provide 1200ml, 1800 kcal, 99g prot, 911ml free H2O - Maintain current TF - Flush per MD/ HOB over 30 degrees ADDITIONAL RECOMMENDATIONS: 1) Monitor BGs, need for SSI 2) Check A1C for eval of glycemic control- prev episodes of hyperglycemia 3) Sacral wound: Add via GT-> MARTHA BID + Vit C 250mg daily 4) Recalibrate bed scale: conflicting weights EMR wt: 220#, Bed scale wt: 238# 5) Check lytes daily, replete as needed (22) Respiratory failure, acute (23) Acute respiratory failure (24) Left arm cellulitis (25) Decubitus skin ulcer Assessment & Plan: Pt presented with non-blanchable erythema with partial thickness pressure injuries to R and L clefts of buttocks and sacrum.Base of wounds moist and viable. Base of scrotum red. Reabsorbing Blood Blister noted to lateral L foot (L)1cm x (W)4.5cm.Periwound pink and blanchable. Both heels are firm and blanchable. Pt also noted to have multiple bullae filled bullae on all 5 phalanges ,and palm of L hand.Single serous filled bullae noted in palm at base of thumb. Open blister noted to dorsal L hand. in evaluating hand after 24hrs seems like possible sheering injury, possible patient holding onto something? will continue to care for wounds Tx.Plan: Cleanse Blister dorsal L hand with Saline. Maintain Versatel mesh to wound. Apply Silvasorb gel. Cover with Optifoam drsg. Change every 7 days and prn. Wash L hand with foam cleanser.Pat dry. Cover with ABD pad. Wrap loosely with Kerlix Daily and prn. Apply Cavilon To blister Lateral L foot. Cover with Optifoam drsg. Change every 7 days and prn. Apply Cavilon Skin Barrier to both heels. Off-load heels with pillow. APM/MARJAN Mattress overlay. Reposition at least every 2hours or as tolerated. Jakub Whitman Aug 11, 2018 14:55
[2018-08-11 16:00] VITALS: BP 148/81
[2018-08-11] MEDS: cefTRIAXone 2 GM in D5W 55 ML IVPB SCH (17:27)
--- NOTE | 2018-08-11 18:00 | NUR ---
NURSE NOTES: 5ml residual noted. G tube is patent and intact. Continued Glucerna 1.5 @ 50ml/hr.
--- NOTE | 2018-08-11 18:06 | Pulmonolgy Critical Care Note ---
Critical Care - Asmt/Plan Assessment/Plan: Pulmonary CCM Progress Note Critical Care - Asmt/Plan Problems: (1) Sepsis Assessment & Plan: HEMODYNAMICALLY STABLE (2) Respiratory failure, acute Assessment & Plan: EXTUBATED 08/06 (3) Airway intubation performed without difficulty Assessment & Plan: EXTUBATED 08/06 (4) LLL pneumonia Assessment & Plan: CLINICALLY IMPROVED (5) Left arm cellulitis (6) STUART (acute kidney injury) Assessment & Plan: RESOLVED (7) CKD (chronic kidney disease) (8) Dementia (9) Leukocytosis (10) FTT (failure to thrive) in adult (11) Afib Critical Care - Objective Vital Signs Noted Status: awake Condition: critical HEENT: atraumatic, normocephalic Lungs: CTAB Heart: HR/BP stable, irregular Abdomen: soft, non-tender, active bowel sounds Extremities: no C/C/E Micro: Respiratory: monitor respiratory status, O2, , HHN's Cardiac: other - Dilt, cards recs, off A/C 2/2 bleeding risk (prior GIB), ? Watchmann Renal: IV fluid PRN Infectious Disease: continue antibiotics per ID Gastrointestinal: continue feedings Endocrine: monitor blood sugar Hematologic: monitor H/H Neurologic: keep patient comfortable - monitor MS Prophylaxis: Protonix, Heparin - SQ Disposition: keep in - [facility] Time Spent (Minutes): 30 Notes Reviewed: addiction treatment counselor, cardio, ID Discussed with: nurses, consultants, other - DNAR Laboratory Tests Noted Critical Care - Objective Last 24 Hour Vital Signs Date Time Temp Pulse Resp B/P (MAP) Pulse Ox O2 Delivery O2 Flow Rate FiO2 08/11/18 17:27 99 148/81 08/11/18 16:00 99.3 99 18 148/81 (103) 94 08/11/18 15:08 107 08/11/18 13:14 84 18 98 Room Air 21 08/11/18 13:06 81 16 94 Room Air 21 08/11/18 12:47 91 152/92 08/11/18 12:00 98.2 91 20 152/92 (112) 94 08/11/18 11:36 96 08/11/18 09:00 Room Air Room Air Room Air 08/11/18 08:45 78 18 98 Room Air 21 08/11/18 08:35 95 Room Air 21 08/11/18 08:35 78 18 95 Room Air 21 08/11/18 08:35 Room Air 21 08/11/18 08:08 78 08/11/18 08:00 97.5 75 20 136/80 (98) 94 08/11/18 05:18 81 132/75 08/11/18 04:00 97.7 74 17 119/66 (83) 92 08/11/18 03:36 78 08/11/18 02:07 96.3 08/11/18 02:06 96.3 08/11/18 01:05 77 18 97 Room Air 21 08/11/18 00:55 75 18 95 Room Air 21 08/10/18 23:57 99.3 92 18 119/70 (86) 93 08/10/18 23:43 92 119/70 08/10/18 23:37 89 08/10/18 22:58 98.2 08/10/18 20:01 Room Air Room Air Room Air 08/10/18 20:00 100.2 106 19 141/84 (103) 91 08/10/18 19:20 104 08/10/18 18:53 Room Air 21 08/10/18 18:53 82 18 96 Room Air 21 08/10/18 18:52 95 Room Air 21 08/10/18 18:44 83 18 92 Room Air 21 Critical Care - Subjective ROS Limited/Unobtainable: No FI02: 21 Vent Support Breath Rate: 16 Vent Support Mode: CPAP Vent Tidal Volume: 500 Sputum Amount: None PEEP: 5.0 PIP: 14 Tube Feeding Amount: 520 I&O: Intake and Output 08/10/18 08/11/18 19:00 07:00 Intake Total 300 ml 1040 ml Output Total 700 ml 600 ml Balance -400 ml 440 ml IV Total 300 ml 520 ml Tube Feeding 520 ml Output Urine Total 700 ml 600 ml # Bowel Movements 1 Richie Grove MD Aug 11, 2018 18:06
--- NOTE | 2018-08-11 18:11 | Infectious Diseases Prog Note ---
Assessment/Plan Problems: (1) LLL pneumonia Assessment & Plan: suspect aspiration, on zyvox and ceftriaxone empirically . aspiration precaution . EOT 08/20/18 (2) Left arm cellulitis Assessment & Plan: suspect strep and staph related, complicated with blisters, already on wide spectrum antibiotics , keep arm elevated while in bed, venous doppler is negative for DVT (3) Sepsis Assessment & Plan: due to the above, with STAPH EPIDERMIDIS and STREP GROUP A , source? left hand cellulitis VS pneumonia VS sacral pressure wound , continue zyvox and ceftriaxone for two weeks . ECHO showed no valve vegetations . repeat blood culture to confirm clearance IS NEGATIVE ON 08/04/18. EOT 08/20/18 (4) CKD (chronic kidney disease) Assessment & Plan: continue hydration and renally dosed meds as per pharmacy (5) Renal mass, right Assessment & Plan: poor candidate for surgery (6) Encephalopathy Assessment & Plan: suspect metabolic due to the above, continue hydration with antibiotics , avoid sedatives (7) Acute respiratory failure Assessment & Plan: due to the above , S/P intubation , pulmonary is following Subjective Constitutional: Reports: no symptoms HEENT: Reports: no symptoms Respiratory: Reports: no symptoms Breasts: Reports: no symptoms Cardiovascular: Reports: no symptoms Gastrointestinal/Abdominal: Reports: no symptoms Genitourinary: Reports: no symptoms Neurologic: Reports: no symptoms Psychiatric: Reports: no symptoms Skin: Reports: no symptoms Endocrine: Reports: no symptoms Hematologic: Reports: no symptoms Musculoskeletal: Reports: no symptoms Allergies: Coded Allergies: MORPHINE (Verified Allergy, Unknown, 03/25/18) PENICILLINS (Verified Allergy, Unknown, 03/05/18) Subjective He was awake and responsive , was extubated , afebrile. blisters in his left hand have burst . Objective Vital Signs Last 24 Hour Vital Signs Date Time Temp Pulse Resp B/P (MAP) Pulse Ox O2 Delivery O2 Flow Rate FiO2 08/11/18 17:27 99 148/81 08/11/18 16:00 99.3 99 18 148/81 (103) 94 08/11/18 15:08 107 08/11/18 13:14 84 18 98 Room Air 21 08/11/18 13:06 81 16 94 Room Air 21 08/11/18 12:47 91 152/92 08/11/18 12:00 98.2 91 20 152/92 (112) 94 08/11/18 11:36 96 08/11/18 09:00 Room Air Room Air Room Air 08/11/18 08:45 78 18 98 Room Air 21 08/11/18 08:35 95 Room Air 21 08/11/18 08:35 78 18 95 Room Air 21 08/11/18 08:35 Room Air 21 08/11/18 08:08 78 08/11/18 08:00 97.5 75 20 136/80 (98) 94 08/11/18 05:18 81 132/75 08/11/18 04:00 97.7 74 17 119/66 (83) 92 08/11/18 03:36 78 08/11/18 02:07 96.3 08/11/18 02:06 96.3 08/11/18 01:05 77 18 97 Room Air 21 08/11/18 00:55 75 18 95 Room Air 21 08/10/18 23:57 99.3 92 18 119/70 (86) 93 08/10/18 23:43 92 119/70 08/10/18 23:37 89 08/10/18 22:58 98.2 08/10/18 20:01 Room Air Room Air Room Air 08/10/18 20:00 100.2 106 19 141/84 (103) 91 08/10/18 19:20 104 08/10/18 18:53 Room Air 21 08/10/18 18:53 82 18 96 Room Air 21 08/10/18 18:52 95 Room Air 21 08/10/18 18:44 83 18 92 Room Air 21 Height (Feet): 5 Height (Inches): 6.00 Weight (Pounds): 236 General Appearance: WD/WN, no acute distress HEENT: normocephalic, atraumatic, anicteric, mucous membranes moist, PERRL, EOMI, pharynx normal, supple, no JVD Respiratory/Chest: chest wall non-tender, normal breath sounds, no respiratory distress, no accessory muscle use Cardiovascular: normal peripheral pulses, normal rate, regular rhythm, no gallop/murmur, no JVD Abdomen: normal bowel sounds, soft, non tender, no organomegaly, non distended , no mass, no scars Genitourinary: normal external genitalia Extremities: no cyanosis, no clubbing Skin: no rash, no lesions, ulcers 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, alert, responsive Lymphatic: no neck adenopathy, no groin adenopathy Musculoskeletal: normal muscle bulk, no effusion Laboratory Tests Test 08/11/18 05:41 White Blood Count 9.9 K/UL (4.8-10.8) Red Blood Count 4.21 M/UL (4.70-6.10) L Hemoglobin 11.8 G/DL (14.2-18.0) L Hematocrit 36.6 % (42.0-52.0) L Mean Corpuscular Volume 87 FL (80-99) Mean Corpuscular Hemoglobin 27.9 PG (27.0-31.0) Mean Corpuscular Hemoglobin Concent 32.1 G/DL (32.0-36.0) Red Cell Distribution Width 15.0 % (11.6-14.8) H Platelet Count 229 K/UL (150-450) Mean Platelet Volume 5.6 FL (6.5-10.1) L Neutrophils (%) (Auto) 73.7 % (45.0-75.0) Lymphocytes (%) (Auto) 15.9 % (20.0-45.0) L Monocytes (%) (Auto) 6.4 % (1.0-10.0) Eosinophils (%) (Auto) 3.1 % (0.0-3.0) H Basophils (%) (Auto) 0.9 % (0.0-2.0) Sodium Level 139 MMOL/L (136-145) Potassium Level 4.1 MMOL/L (3.5-5.1) Chloride Level 102 MMOL/L (98-107) Carbon Dioxide Level 28 MMOL/L (21-32) Anion Gap 9 mmol/L (5-15) Blood Urea Nitrogen 27 mg/dL (7-18) H Creatinine 1.2 MG/DL (0.55-1.30) Estimat Glomerular Filtration Rate mL/min (>60) Glucose Level 133 MG/DL (74-106) H Calcium Level 8.5 MG/DL (8.5-10.1) Current Medications Medications (Trade) Dose Ordered Sig/Colin Route PRN Reason Start Time Stop Time Status Last Admin Dose Admin Acetaminophen (Tylenol) 650 mg Q4H PRN GT Mild Pain/Temp > 100.5 08/09/18 14:15 09/08/18 14:14 08/11/18 00:51 Albuterol/ Ipratropium (Albuterol/ Ipratropium) 3 ml Q4H PRN HHN Shortness of Breath 08/09/18 12:04 08/14/18 12:03 Albuterol/ Ipratropium (Albuterol/ Ipratropium) 3 ml Q6HRT HHN 08/09/18 13:00 08/14/18 12:50 08/11/18 13:06 Atorvastatin Calcium (Lipitor) 20 mg BEDTIME GT 08/09/18 21:00 09/02/18 20:59 08/10/18 20:34 Carbidopa/Levodopa (Sinemet 25/100) 1 tab THREE TIMES A DAY GT 08/09/18 18:00 09/02/18 17:59 08/11/18 17:27 Ceftriaxone Sodium 2 gm/ Dextrose 55 ml @ 110 mls/hr Q24H IVPB 08/09/18 18:00 08/20/18 17:59 08/11/18 17:27 Chlorhexidine Gluconate (Bonnie-Hex 2%) 1 applic DAILY@2000 TOPIC 08/11/18 20:00 09/10/18 19:59 Diltiazem HCl (Cardizem) 60 mg EVERY 6 HOURS GT 08/09/18 18:00 09/08/18 17:59 08/11/18 17:27 Gabapentin (Neurontin) 100 mg QHS GT 08/09/18 21:00 09/02/18 20:59 08/10/18 20:34 Heparin Sodium (Porcine) (Heparin 5000 units/ml) 5,000 units EVERY 12 HOURS SUBQ 08/09/18 21:00 09/04/18 20:59 08/11/18 08:24 Heparin Sodium/ Sodium Chloride (Heparin 1000 units/500ml Premix) 1,000 unit ONCE PRN IV PICC LINE 08/11/18 14:15 08/13/18 14:14 Lansoprazole (Prevacid) 30 mg DAILY GT 08/12/18 09:00 09/02/18 08:59 Lidocaine HCl (Xylocaine 1% 30ml) 30 ml ONCE PRN INJ PICC LINE 08/11/18 14:15 08/13/18 14:14 Linezolid 300 ml @ 300 mls/hr Q12HR IVPB 08/09/18 21:00 08/20/18 20:59 08/11/18 08:19 Lorazepam (Ativan 2mg/ml 1ml) 1 mg Q4H PRN IV For Anxiety 08/09/18 12:05 08/16/18 12:04 Ondansetron HCl (Zofran) 4 mg Q6H PRN IVP Nausea & Vomiting 08/09/18 12:05 09/08/18 12:04 Sodium Chloride 1,000 ml @ 20 mls/hr Q24H IV 08/09/18 12:04 09/08/18 12:03 08/11/18 12:47 Vitamin B Complex/ Vit C/Folic Acid (Nephrovite) 1 tab DAILY GT 08/10/18 09:00 09/03/18 08:59 08/11/18 08:20 Srini Sam M.D. Aug 11, 2018 18:11
--- NOTE | 2018-08-11 19:32 | NUR ---
HAND-OFF: Report given to SHANNON Ellis. Patient is resting in bed. No respiratory distress or pain noted.
--- NOTE | 2018-08-11 19:33 | NUR ---
NURSE NOTES: Received pt from SHANNON Campbell. Pt asleep and resting in bed. IV site intact. Gtube intact. Call light within reach and bed in lowest position. Will continue with plan of care.
[2018-08-11 20:00] VITALS: BP 150/88
[2018-08-11] MEDS ORDERED: Dyna-Hex 2% Top Sol 2oz TOPIC SCH (20:00)
[2018-08-11] MEDS: Atorvastatin 20mg tab GT SCH (22:08)
[2018-08-12] VITALS: BP 148/89
[2018-08-12] MEDS: dilTIAZem HCl 60mg tab GT SCH ×4 (01:07→18:26)
[2018-08-12] MEDS: Albuterol/Ipratropium 3ml neb HHN SCH ×3 (01:46→11:41)
[2018-08-12 04:00] VITALS: BP 156/90
--- NOTE | 2018-08-12 07:35 | NUR ---
HAND-OFF: Report given to SHANNON Matias. Pt awake and resting in bed. Endorsed plan of care.
[2018-08-12 07:37] LABS: BASOPHILS % (AUTO) 0.9 % (0.0-2.0); EOSINOPHILS % (AUTO) 2.4 % (0.0-3.0); HEMATOCRIT 35.2 % (42.0-52.0); HEMOGLOBIN 11.5 G/DL (14.2-18.0); LYMPHOCYTES % (AUTO) 13.4 % (20.0-45.0); MEAN CORPUSCULAR VOLUME 87 FL (80-99); NEUTROPHILS % (AUTO) 77.2 % (45.0-75.0); PLATELET COUNT 233 K/UL (150-450); RED BLOOD COUNT 4.06 M/UL (4.70-6.10); RED CELL DISTRIBUTION WIDTH 14.8 % (11.6-14.8); WHITE BLOOD COUNT 10.3 K/UL (4.8-10.8)
--- NOTE | 2018-08-12 07:45 | NUR ---
NURSE NOTES: Received report from SHANNON Ellis. Patient in bed resting, no active s/s cardiac, respiratory distress noticed at this time, denies pain at this time. AOx1, controlled A.fib with HR 94. Park catheter draining well to gravity, IV site on left AC 22 G, asymptomatic, patent, intact, IV fluid running at prescribed rate. G-tube feeding at prescribed rate, patient tolerating. Bed in lowest position, side rails upx3, HOB elevated, call light within reach. Will continue to monitor.
[2018-08-12 08:00] VITALS: BP 138/87
[2018-08-12 08:00] LABS: ANION GAP 9 mmol/L (5-15); BLOOD UREA NITROGEN 26 mg/dL (7-18); CALCIUM 8.9 MG/DL (8.5-10.1); CARBON DIOXIDE 26 MMOL/L (21-32); CHLORIDE 102 MMOL/L (98-107); CREATININE 1.1 MG/DL (0.55-1.30); POTASSIUM 4.2 MMOL/L (3.5-5.1); SODIUM 137 MMOL/L (136-145)
--- NOTE | 2018-08-12 08:00 | NUR ---
NURSE NOTES: Received telephone consent for PICC placement from Sister Pizano. Per boby Hawkins for off tele unit for PICC placement, and after PICC placement discharge patient back to [facility] and continue hospital medication, discontinue Park Catheter. Order noted, entered, carried out.
[2018-08-12] MEDS: Heparin 5000 units/ml inj SUBQ SCH (09:00)
--- NOTE | 2018-08-12 09:16 | General Progress Note ---
Assessment/Plan Status: stable Assessment: 1. Acute Respiratory failure - in tele. stable. cont. tube feeding. 2. Asp Pneumonia Cont IV ABX per ID until 08/20/18. [facility]. 3. sepsis - Cont IV ABX per ID. improved. D/C [facility]. 4. Hand cellulitis - cont IV ABX. 5. 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 6. Parkinson dementia - cont home meds. 7. Chronic Lt leg Popliteal thrombosis - off anticoagulation due to high risk of bleeding and previous hx of GI bleeding. 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 8. Chronic kidney disease - stable. 9. Hx of renal mass - family refused the work up last admission. currently DNR but not DNI. 10. Hx of CVA with one sided hemiplegia 11. Depression - cont home meds. 12. Neuropathy - stable. 13. Hyperlipidemia - cont home med. Subjective Date patient seen: Aug 12, 2018 Time patient seen: 10:00 Constitutional: Reports: weakness HEENT: Reports: no symptoms Cardiovascular: Reports: no symptoms Respiratory: Reports: no symptoms Gastrointestinal/Abdominal: Reports: no symptoms Genitourinary: Reports: no symptoms Neurologic/Psychiatric: Reports: no symptoms Endocrine: Reports: no symptoms Hematologic/Lymphatic: Reports: no symptoms Allergies: Coded Allergies: MORPHINE (Verified Allergy, Unknown, 03/25/18) PENICILLINS (Verified Allergy, Unknown, 03/05/18) Subjective He is awake and doing well. Afebrile. No sob or chest pain. Picc line placed. Objective Last 24 Hour Vital Signs Date Time Temp Pulse Resp B/P (MAP) Pulse Ox O2 Delivery O2 Flow Rate FiO2 08/12/18 06:55 89 16 99 Room Air 08/12/18 06:45 91 16 97 Room Air 08/12/18 06:45 97 Room Air 08/12/18 06:45 Room Air 08/12/18 06:17 94 143/86 08/12/18 04:00 92 08/12/18 04:00 98.3 92 17 156/90 (112) 92 08/12/18 01:55 94 18 98 Room Air 08/12/18 01:46 87 16 92 Room Air 08/12/18 01:07 103 152/96 08/12/18 00:00 98.1 101 18 148/89 (108) 93 08/12/18 00:00 101 08/11/18 21:00 Room Air Room Air Room Air 08/11/18 20:00 98 08/11/18 20:00 98.3 98 19 150/88 (108) 94 08/11/18 19:38 98 Room Air 21 08/11/18 19:37 92 18 99 Room Air 21 08/11/18 19:27 90 20 92 Room Air 21 08/11/18 19:27 Room Air 21 08/11/18 17:27 99 148/81 08/11/18 16:00 99.3 99 18 148/81 (103) 94 08/11/18 15:08 107 08/11/18 13:14 84 18 98 Room Air 21 08/11/18 13:06 81 16 94 Room Air 21 08/11/18 12:47 91 152/92 08/11/18 12:00 98.2 91 20 152/92 (112) 94 08/11/18 11:36 96 Intake and Output 08/11/18 08/12/18 18:59 06:59 Output Total 900 ml 700 ml Balance -900 ml -700 ml Output Urine Total 900 ml 700 ml # Voids 1 # Bowel Movements 4 Laboratory Tests 08/12/18 06:03: White Blood Count 10.3, Red Blood Count 4.06L, Hemoglobin 11.5L, Hematocrit 35.2L, Mean Corpuscular Volume 87, Mean Corpuscular Hemoglobin 28.3, Mean Corpuscular Hemoglobin Concent 32.7, Red Cell Distribution Width 14.8, Platelet Count 233, Mean Platelet Volume 6.0L, Neutrophils (%) (Auto) 77.2H, Lymphocytes (%) (Auto) 13.4L, Monocytes (%) (Auto) 6.0, Eosinophils (%) (Auto) 2.4, Basophils (%) (Auto) 0.9, Sodium Level 137, Potassium Level 4.2, Chloride Level 102, Carbon Dioxide Level 26, Anion Gap 9, Blood Urea Nitrogen 26H, Creatinine 1.1, Estimat Glomerular Filtration Rate , Glucose Level 125H, Calcium Level 8.9 Height (Feet): 5 Height (Inches): 6.00 Weight (Pounds): 234 General Appearance: no apparent distress, alert EENT: normal ENT inspection Neck: non-tender, normal alignment, supple Cardiovascular: normal peripheral pulses, normal rate, regular rhythm Respiratory/Chest: chest wall non-tender, lungs clear, normal breath sounds Abdomen: non tender, soft, no organomegaly Extremities: normal range of motion, non-tender Edema: no edema noted Arm (L), no edema noted Arm (R), no edema noted Leg (L), no edema noted Leg (R), no edema noted Pedal (L), no edema noted Pedal (R), no edema noted Generalized Neurologic: alert, responsive Skin: warm/dry Lymphatic: normal anterior cervical (L), normal anterior cervical (R), normal posterior cervical (L), normal posterior cervical (R), normal submandibular (L) , normal submandibular (R), normal supraclavicular (L), normal supraclavicular ( R), normal axillary (L), normal axillary (R), normal inguinal (L), normal inguinal (R), normal other Shelby Arrington MD Aug 12, 2018 09:16
[2018-08-12] MEDS: Nephrovite tab (Rena-Vite) GT SCH (09:50)
[2018-08-12] MEDS: Levodopa/Carbidopa 25/100 tab GT SCH ×3 (09:50→18:26)
--- NOTE | 2018-08-12 10:33 | Diagnostic Imaging Report ---
Indications: Needs long-term IV access Technique: Ultrasound confirms patent compressible right basilic vein. Total sterile technique, including sterile probe cover and sterile gel, hat, mask, sterile gown, large sterile drape, and preparation with 2% chlorhexidine utilized. Local anesthesia with 1% lidocaine. Under real-time ultrasound guidance, puncture right basilic vein using 21-gauge needle, documented and archived, passage 0.018 guidewire under direct fluoroscopy, which was used to determine appropriate catheter length, exchange for 4 Sami peel-away sheath. 4 Sami Bard dual-lumen power PICC cut to 41 cm. It was inserted through the peel-away sheath. Peel-away sheath and guidewire removed. Catheter fixed to the skin. Both catheter ports aspirated and flushed. Patient tolerated procedure well, without immediate complication. Digital radiograph documents satisfactory catheter tip position, at the cavoatrial junction. Total fluoroscopy time 12 point seconds. Total dose area product [id number] mGym2 Total number of images: 1 Impression: Successful placement of right arm PICC under sonographic and fluoroscopic guidance, as described above.
--- NOTE | 2018-08-12 11:54 | Surgery Progress Note ---
Surgery Progress Note Subjective Additional Comments no acute events. comfortable appearing. resting. dressing clean and changed Objective Last 24 Hour Vital Signs Date Time Temp Pulse Resp B/P (MAP) Pulse Ox O2 Delivery O2 Flow Rate FiO2 08/12/18 11:40 99 18 98 Room Air 21 08/12/18 11:35 96 18 96 Room Air 21 08/12/18 09:00 Room Air Room Air Room Air 08/12/18 08:00 89 08/12/18 08:00 98.1 93 20 138/87 (104) 96 08/12/18 06:55 89 16 99 Room Air 21 08/12/18 06:45 91 16 97 Room Air 21 08/12/18 06:45 97 Room Air 08/12/18 06:45 Room Air 21 08/12/18 06:17 94 143/86 08/12/18 04:00 92 08/12/18 04:00 98.3 92 17 156/90 (112) 92 08/12/18 01:55 94 18 98 Room Air 08/12/18 01:46 87 16 92 Room Air 21 08/12/18 01:07 103 152/96 08/12/18 00:00 98.1 101 18 148/89 (108) 93 08/12/18 00:00 101 08/11/18 21:00 Room Air Room Air Room Air 08/11/18 20:00 98 08/11/18 20:00 98.3 98 19 150/88 (108) 94 08/11/18 19:38 98 Room Air 08/11/18 19:37 92 18 99 Room Air 08/11/18 19:27 90 20 92 Room Air 21 08/11/18 19:27 Room Air 21 08/11/18 17:27 99 148/81 08/11/18 16:00 99.3 99 18 148/81 (103) 94 08/11/18 15:08 107 08/11/18 13:14 84 18 98 Room Air 21 08/11/18 13:06 81 16 94 Room Air 21 08/11/18 12:47 91 152/92 08/11/18 12:00 98.2 91 20 152/92 (112) 94 I&O Intake and Output 08/11/18 08/12/18 18:59 06:59 Output Total 900 ml 700 ml Balance -900 ml -700 ml Output Urine Total 900 ml 700 ml # Voids 1 # Bowel Movements 4 Dressing: dry Wound: clean Drains: other Cardiovascular: RSR Respiratory: clear, decreased breath sounds Abdomen: soft, present bowel sounds, non-distended Extremities: no tenderness, no cyanosis Laboratory Tests Test 08/12/18 06:03 White Blood Count 10.3 K/UL (4.8-10.8) Red Blood Count 4.06 M/UL (4.70-6.10) L Hemoglobin 11.5 G/DL (14.2-18.0) L Hematocrit 35.2 % (42.0-52.0) L Mean Corpuscular Volume 87 FL (80-99) Mean Corpuscular Hemoglobin 28.3 PG (27.0-31.0) Mean Corpuscular Hemoglobin Concent 32.7 G/DL (32.0-36.0) Red Cell Distribution Width 14.8 % (11.6-14.8) Platelet Count 233 K/UL (150-450) Mean Platelet Volume 6.0 FL (6.5-10.1) L Neutrophils (%) (Auto) 77.2 % (45.0-75.0) H Lymphocytes (%) (Auto) 13.4 % (20.0-45.0) L Monocytes (%) (Auto) 6.0 % (1.0-10.0) Eosinophils (%) (Auto) 2.4 % (0.0-3.0) Basophils (%) (Auto) 0.9 % (0.0-2.0) Sodium Level 137 MMOL/L (136-145) Potassium Level 4.2 MMOL/L (3.5-5.1) Chloride Level 102 MMOL/L (98-107) Carbon Dioxide Level 26 MMOL/L (21-32) Anion Gap 9 mmol/L (5-15) Blood Urea Nitrogen 26 mg/dL (7-18) H Creatinine 1.1 MG/DL (0.55-1.30) Estimat Glomerular Filtration Rate mL/min (>60) Glucose Level 125 MG/DL (74-106) H Calcium Level 8.9 MG/DL (8.5-10.1) Plan Problems: (1) Left hip pain (2) Hypokalemia (3) Fall (4) Trochanteric fracture of left femur (5) Anemia (6) Dysphagia causing pulmonary aspiration with swallowing (7) Acute CVA (cerebrovascular accident) (8) Encephalopathy (9) CKD (chronic kidney disease) (10) Renal mass, right (11) STUART (acute kidney injury) (12) Leukocytosis (13) Aspiration pneumonia (14) FTT (failure to thrive) in adult (15) Encounter for respirator [ventilator] dependence during power failure (16) Airway intubation performed without difficulty (17) Afib (18) Acute renal failure (19) LLL pneumonia (20) Dementia (21) Sepsis Assessment & Plan: cont abx as per ID leukocytosis resolved trend labs unlikely etiology of infection wounds d/c planning today will monitor and follow with recs DAILY ESTIMATED NEEDS: Needs based on Obese, wound, bedbound, 79kg adj 22-25 kcals/kg 4108-3243 total kcals 1.25-1.5 g protein/kg 99-119 g total protein 20-25 mL/kg 4205-3285 total fluid mLs NUTRITION DIAGNOSIS: * Swallowing difficulty R/T dysphagia, h/o CVA w/ hemiplegia, evidenced by s/p recent PEG placement, now extubated, on room air. * Increased protein needs r/t wound healing as evidenced by pt partial thickness wounds @ R and L clefts of buttocks and sacrum CURRENT TF:Glucerna 1.5 @50ml /hr x24 hrs ENTERAL NUTRITION RECOMMENDATIONS: Glucerna 1.5 @50ml /hr x24 hrs to provide 1200ml, 1800 kcal, 99g prot, 911ml free H2O - Maintain current TF - Flush per MD/ HOB over 30 degrees ADDITIONAL RECOMMENDATIONS: 1) Monitor BGs, need for SSI 2) Check A1C for eval of glycemic control- prev episodes of hyperglycemia 3) Sacral wound: Add via GT-> MARTHA BID + Vit C 250mg daily 4) Recalibrate bed scale: conflicting weights EMR wt: 220#, Bed scale wt: 238# 5) Check lytes daily, replete as needed (22) Respiratory failure, acute (23) Acute respiratory failure (24) Left arm cellulitis (25) Decubitus skin ulcer Assessment & Plan: Pt presented with non-blanchable erythema with partial thickness pressure injuries to R and L clefts of buttocks and sacrum.Base of wounds moist and viable. Base of scrotum red. Reabsorbing Blood Blister noted to lateral L foot (L)1cm x (W)4.5cm.Periwound pink and blanchable. Both heels are firm and blanchable. Pt also noted to have multiple bullae filled bullae on all 5 phalanges ,and palm of L hand.Single serous filled bullae noted in palm at base of thumb. Open blister noted to dorsal L hand. in evaluating hand after 24hrs seems like possible sheering injury, possible patient holding onto something? will continue to care for wounds Tx.Plan: Cleanse Blister dorsal L hand with Saline. Maintain Versatel mesh to wound. Apply Silvasorb gel. Cover with Optifoam drsg. Change every 7 days and prn. Wash L hand with foam cleanser.Pat dry. Cover with ABD pad. Wrap loosely with Kerlix Daily and prn. Apply Cavilon To blister Lateral L foot. Cover with Optifoam drsg. Change every 7 days and prn. Apply Cavilon Skin Barrier to both heels. Off-load heels with pillow. APM/MARJAN Mattress overlay. Reposition at least every 2hours or as tolerated. Continue above wound care plan at [facility]. wounds have improved since admission and are in healing process Jakub Whitman Aug 12, 2018 11:54
[2018-08-12 12:00] VITALS: BP 153/90
--- NOTE | 2018-08-12 12:12 | Pulmonology Progress Note ---
Assessment/Plan Problems: (1) Sepsis (2) Dementia (3) LLL pneumonia (4) Afib (5) Airway intubation performed without difficulty (6) Encephalopathy Assessment/Plan Respiratory status stable HHN's PRN O2 Abx per ID NPO GTF's Hep SQ No A/C given bleeding risk DNAR Stable for transfer from a respiratory standpoint Subjective Allergies: Coded Allergies: MORPHINE (Verified Allergy, Unknown, 03/25/18) PENICILLINS (Verified Allergy, Unknown, 03/05/18) Subjective AFVSS O2 needs stable TTF no cough no SOB no wheezing trisha TF's dispo planning underway Objective Last 24 Hour Vital Signs Date Time Temp Pulse Resp B/P (MAP) Pulse Ox O2 Delivery O2 Flow Rate FiO2 08/12/18 11:40 99 18 98 Room Air 21 08/12/18 11:35 96 18 96 Room Air 21 08/12/18 09:00 Room Air Room Air Room Air 08/12/18 08:00 89 08/12/18 08:00 98.1 93 20 138/87 (104) 96 08/12/18 06:55 89 16 99 Room Air 21 08/12/18 06:45 91 16 97 Room Air 21 08/12/18 06:45 97 Room Air 08/12/18 06:45 Room Air 21 08/12/18 06:17 94 143/86 08/12/18 04:00 92 08/12/18 04:00 98.3 92 17 156/90 (112) 92 08/12/18 01:55 94 18 98 Room Air 21 08/12/18 01:46 87 16 92 Room Air 21 08/12/18 01:07 103 152/96 08/12/18 00:00 98.1 101 18 148/89 (108) 93 08/12/18 00:00 101 08/11/18 21:00 Room Air Room Air Room Air 08/11/18 20:00 98 08/11/18 20:00 98.3 98 19 150/88 (108) 94 08/11/18 19:38 98 Room Air 21 08/11/18 19:37 92 18 99 Room Air 21 08/11/18 19:27 90 20 92 Room Air 21 08/11/18 19:27 Room Air 21 08/11/18 17:27 99 148/81 08/11/18 16:00 99.3 99 18 148/81 (103) 94 08/11/18 15:08 107 08/11/18 13:14 84 18 98 Room Air 21 08/11/18 13:06 81 16 94 Room Air 21 08/11/18 12:47 91 152/92 Intake and Output 08/11/18 08/12/18 18:59 06:59 Output Total 900 ml 700 ml Balance -900 ml -700 ml Output Urine Total 900 ml 700 ml # Voids 1 # Bowel Movements 4 General Appearance: no acute distress, cachetic HEENT: normocephalic, atraumatic, anicteric, mucous membranes moist Respiratory/Chest: rhonchi Cardiovascular: normal peripheral pulses, irregularly irregular Abdomen: normal bowel sounds, soft, non tender, no organomegaly, non distended , no mass, other - GT Extremities: no cyanosis, no clubbing, no edema Laboratory Tests 08/12/18 06:03: White Blood Count 10.3, Red Blood Count 4.06L, Hemoglobin 11.5L, Hematocrit 35.2L, Mean Corpuscular Volume 87, Mean Corpuscular Hemoglobin 28.3, Mean Corpuscular Hemoglobin Concent 32.7, Red Cell Distribution Width 14.8, Platelet Count 233, Mean Platelet Volume 6.0L, Neutrophils (%) (Auto) 77.2H, Lymphocytes (%) (Auto) 13.4L, Monocytes (%) (Auto) 6.0, Eosinophils (%) (Auto) 2.4, Basophils (%) (Auto) 0.9, Sodium Level 137, Potassium Level 4.2, Chloride Level 102, Carbon Dioxide Level 26, Anion Gap 9, Blood Urea Nitrogen 26H, Creatinine 1.1, Estimat Glomerular Filtration Rate , Glucose Level 125H, Calcium Level 8.9 Current Medications Medications (Trade) Dose Ordered Sig/Colin Route PRN Reason Start Time Stop Time Status Last Admin Dose Admin Acetaminophen (Tylenol) 650 mg Q4H PRN GT Mild Pain/Temp > 100.5 08/09/18 14:15 09/08/18 14:14 08/11/18 00:51 Albuterol/ Ipratropium (Albuterol/ Ipratropium) 3 ml Q4H PRN HHN Shortness of Breath 08/09/18 12:04 08/14/18 12:03 Albuterol/ Ipratropium (Albuterol/ Ipratropium) 3 ml Q6HRT HHN 08/09/18 13:00 08/14/18 12:50 08/12/18 11:41 Atorvastatin Calcium (Lipitor) 20 mg BEDTIME GT 08/09/18 21:00 09/02/18 20:59 08/11/18 22:08 Carbidopa/Levodopa (Sinemet 25/100) 1 tab THREE TIMES A DAY GT 08/09/18 18:00 09/02/18 17:59 08/12/18 09:50 Ceftriaxone Sodium 2 gm/ Dextrose 55 ml @ 110 mls/hr Q24H IVPB 08/09/18 18:00 08/20/18 17:59 08/11/18 17:27 Chlorhexidine Gluconate (Bonnie-Hex 2%) 1 applic DAILY@2000 TOPIC 08/11/18 20:00 09/10/18 19:59 08/11/18 22:08 Diltiazem HCl (Cardizem) 60 mg EVERY 6 HOURS GT 08/09/18 18:00 09/08/18 17:59 08/12/18 06:17 Gabapentin (Neurontin) 100 mg QHS GT 08/09/18 21:00 09/02/18 20:59 08/11/18 22:08 Heparin Sodium (Porcine) (Heparin 5000 units/ml) 5,000 units EVERY 12 HOURS SUBQ 08/09/18 21:00 09/04/18 20:59 08/11/18 22:09 Heparin Sodium/ Sodium Chloride (Heparin 1000 units/500ml Premix) 1,000 unit ONCE PRN IV PICC LINE 08/11/18 14:15 08/13/18 14:14 Lansoprazole (Prevacid) 30 mg DAILY GT 08/12/18 09:00 09/02/18 08:59 08/12/18 09:50 Lidocaine HCl (Xylocaine 1% 30ml) 30 ml ONCE PRN INJ PICC LINE 08/11/18 14:15 08/13/18 14:14 Linezolid 300 ml @ 300 mls/hr Q12HR IVPB 08/09/18 21:00 08/20/18 20:59 08/12/18 09:50 Lorazepam (Ativan 2mg/ml 1ml) 1 mg Q4H PRN IV For Anxiety 08/09/18 12:05 08/16/18 12:04 Ondansetron HCl (Zofran) 4 mg Q6H PRN IVP Nausea & Vomiting 08/09/18 12:05 09/08/18 12:04 Sodium Chloride 1,000 ml @ 20 mls/hr Q24H IV 08/09/18 12:04 09/08/18 12:03 08/11/18 12:47 Vitamin B Complex/ Vit C/Folic Acid (Nephrovite) 1 tab DAILY GT 08/10/18 09:00 09/03/18 08:59 08/12/18 09:50 Messi Patel MD Aug 12, 2018 12:12
--- NOTE | 2018-08-12 12:52 | Cardiac Electrophysiology PN ---
Assessment/Plan Assessment/Plan 1. Atrial fib , controlled rate on Cardizem 60 qid Anticoagulation held due to bleeding and low platelet count 2. HTN on Cardizem 3. Hyperlipidemia on atorvastatin 4. Mild aortic stenosis 5. Aspiration PNA 6. S/p resp failure DW RN Subjective Subjective In atrial fib with controlled rate. No CP or SOB Objective Last 24 Hour Vital Signs Date Time Temp Pulse Resp B/P (MAP) Pulse Ox O2 Delivery O2 Flow Rate FiO2 08/12/18 11:40 99 18 98 Room Air 21 08/12/18 11:35 96 18 96 Room Air 21 08/12/18 09:00 Room Air Room Air Room Air 08/12/18 08:00 89 08/12/18 08:00 98.1 93 20 138/87 (104) 96 08/12/18 06:55 89 16 99 Room Air 21 08/12/18 06:45 91 16 97 Room Air 21 08/12/18 06:45 97 Room Air 21 08/12/18 06:45 Room Air 21 08/12/18 06:17 94 143/86 08/12/18 04:00 92 08/12/18 04:00 98.3 92 17 156/90 (112) 92 08/12/18 01:55 94 18 98 Room Air 21 08/12/18 01:46 87 16 92 Room Air 21 08/12/18 01:07 103 152/96 08/12/18 00:00 98.1 101 18 148/89 (108) 93 08/12/18 00:00 101 08/11/18 21:00 Room Air Room Air Room Air 08/11/18 20:00 98 08/11/18 20:00 98.3 98 19 150/88 (108) 94 08/11/18 19:38 98 Room Air 21 08/11/18 19:37 92 18 99 Room Air 21 08/11/18 19:27 90 20 92 Room Air 21 08/11/18 19:27 Room Air 21 08/11/18 17:27 99 148/81 08/11/18 16:00 99.3 99 18 148/81 (103) 94 08/11/18 15:08 107 08/11/18 13:14 84 18 98 Room Air 21 08/11/18 13:06 81 16 94 Room Air 21 Intake and Output 08/11/18 08/12/18 18:59 06:59 Output Total 900 ml 700 ml Balance -900 ml -700 ml Output Urine Total 900 ml 700 ml # Voids 1 # Bowel Movements 4 Laboratory Tests Test 08/12/18 06:03 White Blood Count 10.3 K/UL (4.8-10.8) Red Blood Count 4.06 M/UL (4.70-6.10) L Hemoglobin 11.5 G/DL (14.2-18.0) L Hematocrit 35.2 % (42.0-52.0) L Mean Corpuscular Volume 87 FL (80-99) Mean Corpuscular Hemoglobin 28.3 PG (27.0-31.0) Mean Corpuscular Hemoglobin Concent 32.7 G/DL (32.0-36.0) Red Cell Distribution Width 14.8 % (11.6-14.8) Platelet Count 233 K/UL (150-450) Mean Platelet Volume 6.0 FL (6.5-10.1) L Neutrophils (%) (Auto) 77.2 % (45.0-75.0) H Lymphocytes (%) (Auto) 13.4 % (20.0-45.0) L Monocytes (%) (Auto) 6.0 % (1.0-10.0) Eosinophils (%) (Auto) 2.4 % (0.0-3.0) Basophils (%) (Auto) 0.9 % (0.0-2.0) Sodium Level 137 MMOL/L (136-145) Potassium Level 4.2 MMOL/L (3.5-5.1) Chloride Level 102 MMOL/L (98-107) Carbon Dioxide Level 26 MMOL/L (21-32) Anion Gap 9 mmol/L (5-15) Blood Urea Nitrogen 26 mg/dL (7-18) H Creatinine 1.1 MG/DL (0.55-1.30) Estimat Glomerular Filtration Rate mL/min (>60) Glucose Level 125 MG/DL (74-106) H Calcium Level 8.9 MG/DL (8.5-10.1) Objective HEENT: No JVD Lungs: Rhonchi Heart: Irregular S1 and S2. No G/R /M Abdomen: soft, non-tender, active bowel sounds, feeding tube Extremities: 1plus edema Decubiti: sacral, stage - 2 Toluie,Gary MD Aug 12, 2018 12:52
--- NOTE | 2018-08-12 14:00 | NUR ---
NURSE NOTES: Park Catheter removed per Dr. Arrington, patient able to urinate after d/c Park Catheter.
[2018-08-12 16:00] VITALS: BP 121/69
--- NOTE | 2018-08-12 16:05 | NUR ---
NURSE NOTES: Paged Dr. Sam for clarification prior to discharge. Per Dr. Sam, continue IV ceftriaxone, PO Zyvox unitl 08/20/18. Order noted, acknowledged, and carried out.
--- NOTE | 2018-08-12 16:25 | NUR ---
DISCHARGE PLANNING DISCHARGE ORDER NOTED Patient has been accepted back to; [facility] Bed: 6A Skilled for Nurse to Nurse report [facility] ETA for transportation 17:30 Family notify; Jerica De Jesus, sister
--- NOTE | 2018-08-12 16:35 | Infectious Diseases Prog Note ---
Assessment/Plan Problems: (1) LLL pneumonia Assessment & Plan: suspect aspiration, on zyvox and ceftriaxone empirically . aspiration precaution . EOT 08/20/18 (2) Left arm cellulitis Assessment & Plan: suspect strep and staph related, complicated with blisters, already on wide spectrum antibiotics , keep arm elevated while in bed, venous doppler is negative for DVT (3) Sepsis Assessment & Plan: due to the above, with STAPH EPIDERMIDIS and STREP GROUP A , source? left hand cellulitis VS pneumonia VS sacral pressure wound , continue zyvox and ceftriaxone for two weeks . ECHO showed no valve vegetations . repeat blood culture to confirm clearance IS NEGATIVE ON 08/04/18. EOT 08/20/18 (4) CKD (chronic kidney disease) Assessment & Plan: continue hydration and renally dosed meds as per pharmacy (5) Renal mass, right Assessment & Plan: poor candidate for surgery (6) Encephalopathy Assessment & Plan: suspect metabolic due to the above, continue hydration with antibiotics , avoid sedatives (7) Acute respiratory failure Assessment & Plan: due to the above , S/P intubation , pulmonary is following Subjective Constitutional: Reports: no symptoms HEENT: Reports: no symptoms Respiratory: Reports: productive cough Breasts: Reports: no symptoms Cardiovascular: Reports: no symptoms Gastrointestinal/Abdominal: Reports: no symptoms Genitourinary: Reports: no symptoms Neurologic: Reports: weakness Psychiatric: Reports: no symptoms Skin: Reports: ulcer Endocrine: Reports: no symptoms Hematologic: Reports: no symptoms Musculoskeletal: Reports: no symptoms Allergies: Coded Allergies: MORPHINE (Verified Allergy, Unknown, 03/25/18) PENICILLINS (Verified Allergy, Unknown, 03/05/18) Subjective He was awake and responsive , afebrile. blisters in his left hand have burst . has wet cough Objective Vital Signs Last 24 Hour Vital Signs Date Time Temp Pulse Resp B/P (MAP) Pulse Ox O2 Delivery O2 Flow Rate FiO2 08/12/18 16:00 98.4 89 20 121/69 (86) 95 08/12/18 12:51 92 153/90 08/12/18 12:00 97.9 92 18 153/90 (111) 96 08/12/18 12:00 92 08/12/18 11:40 99 18 98 Room Air 21 08/12/18 11:35 96 18 96 Room Air 21 08/12/18 09:00 Room Air Room Air Room Air 08/12/18 08:00 89 08/12/18 08:00 98.1 93 20 138/87 (104) 96 08/12/18 06:55 89 16 99 Room Air 21 08/12/18 06:45 91 16 97 Room Air 21 08/12/18 06:45 97 Room Air 21 08/12/18 06:45 Room Air 21 08/12/18 06:17 94 143/86 08/12/18 04:00 92 08/12/18 04:00 98.3 92 17 156/90 (112) 92 08/12/18 01:55 94 18 98 Room Air 21 08/12/18 01:46 87 16 92 Room Air 21 08/12/18 01:07 103 152/96 08/12/18 00:00 98.1 101 18 148/89 (108) 93 08/12/18 00:00 101 08/11/18 21:00 Room Air Room Air Room Air 08/11/18 20:00 98 08/11/18 20:00 98.3 98 19 150/88 (108) 94 08/11/18 19:38 98 Room Air 21 08/11/18 19:37 92 18 99 Room Air 21 08/11/18 19:27 90 20 92 Room Air 21 08/11/18 19:27 Room Air 21 08/11/18 17:27 99 148/81 Height (Feet): 5 Height (Inches): 6.00 Weight (Pounds): 234 General Appearance: WD/WN, no acute distress HEENT: normocephalic, atraumatic, anicteric, mucous membranes moist, PERRL, EOMI, pharynx normal, supple, no JVD Respiratory/Chest: chest wall non-tender, no respiratory distress, no accessory muscle use, decreased breath sounds, crackles/rales Cardiovascular: normal peripheral pulses, normal rate, regular rhythm, no gallop/murmur, no JVD Abdomen: normal bowel sounds, soft, non tender, no organomegaly, non distended , no mass, no scars Genitourinary: normal external genitalia Extremities: no cyanosis, no clubbing Skin: no rash, no lesions, ulcers Neurologic/Psychiatric: alert, responsive Lymphatic: no neck adenopathy, no groin adenopathy Musculoskeletal: normal muscle bulk, no effusion Laboratory Tests Test 08/12/18 06:03 White Blood Count 10.3 K/UL (4.8-10.8) Red Blood Count 4.06 M/UL (4.70-6.10) L Hemoglobin 11.5 G/DL (14.2-18.0) L Hematocrit 35.2 % (42.0-52.0) L Mean Corpuscular Volume 87 FL (80-99) Mean Corpuscular Hemoglobin 28.3 PG (27.0-31.0) Mean Corpuscular Hemoglobin Concent 32.7 G/DL (32.0-36.0) Red Cell Distribution Width 14.8 % (11.6-14.8) Platelet Count 233 K/UL (150-450) Mean Platelet Volume 6.0 FL (6.5-10.1) L Neutrophils (%) (Auto) 77.2 % (45.0-75.0) H Lymphocytes (%) (Auto) 13.4 % (20.0-45.0) L Monocytes (%) (Auto) 6.0 % (1.0-10.0) Eosinophils (%) (Auto) 2.4 % (0.0-3.0) Basophils (%) (Auto) 0.9 % (0.0-2.0) Sodium Level 137 MMOL/L (136-145) Potassium Level 4.2 MMOL/L (3.5-5.1) Chloride Level 102 MMOL/L (98-107) Carbon Dioxide Level 26 MMOL/L (21-32) Anion Gap 9 mmol/L (5-15) Blood Urea Nitrogen 26 mg/dL (7-18) H Creatinine 1.1 MG/DL (0.55-1.30) Estimat Glomerular Filtration Rate mL/min (>60) Glucose Level 125 MG/DL (74-106) H Calcium Level 8.9 MG/DL (8.5-10.1) Current Medications Medications (Trade) Dose Ordered Sig/Colin Route PRN Reason Start Time Stop Time Status Last Admin Dose Admin Acetaminophen (Tylenol) 650 mg Q4H PRN GT Mild Pain/Temp > 100.5 08/09/18 14:15 09/08/18 14:14 08/11/18 00:51 Albuterol/ Ipratropium (Albuterol/ Ipratropium) 3 ml Q4H PRN HHN Shortness of Breath 08/09/18 12:04 08/14/18 12:03 Albuterol/ Ipratropium (Albuterol/ Ipratropium) 3 ml Q6HRT HHN 08/09/18 13:00 08/14/18 12:50 08/12/18 11:41 Atorvastatin Calcium (Lipitor) 20 mg BEDTIME GT 08/09/18 21:00 09/02/18 20:59 08/11/18 22:08 Carbidopa/Levodopa (Sinemet 25/100) 1 tab THREE TIMES A DAY GT 08/09/18 18:00 09/02/18 17:59 08/12/18 12:51 Ceftriaxone Sodium 2 gm/ Dextrose 55 ml @ 110 mls/hr Q24H IVPB 08/09/18 18:00 08/20/18 17:59 08/11/18 17:27 Chlorhexidine Gluconate (Bonnie-Hex 2%) 1 applic DAILY@2000 TOPIC 08/11/18 20:00 09/10/18 19:59 08/11/18 22:08 Diltiazem HCl (Cardizem) 60 mg EVERY 6 HOURS GT 08/09/18 18:00 09/08/18 17:59 08/12/18 12:51 Gabapentin (Neurontin) 100 mg QHS GT 08/09/18 21:00 09/02/18 20:59 08/11/18 22:08 Heparin Sodium (Porcine) (Heparin 5000 units/ml) 5,000 units EVERY 12 HOURS SUBQ 08/09/18 21:00 09/04/18 20:59 08/11/18 22:09 Heparin Sodium/ Sodium Chloride (Heparin 1000 units/500ml Premix) 1,000 unit ONCE PRN IV PICC LINE 08/11/18 14:15 08/13/18 14:14 Lansoprazole (Prevacid) 30 mg DAILY GT 08/12/18 09:00 09/02/18 08:59 08/12/18 09:50 Lidocaine HCl (Xylocaine 1% 30ml) 30 ml ONCE PRN INJ PICC LINE 08/11/18 14:15 08/13/18 14:14 Linezolid (Zyvox) 600 mg Q12HR ORAL 08/12/18 21:00 08/20/18 23:59 Lorazepam (Ativan 2mg/ml 1ml) 1 mg Q4H PRN IV For Anxiety 08/09/18 12:05 08/16/18 12:04 Ondansetron HCl (Zofran) 4 mg Q6H PRN IVP Nausea & Vomiting 08/09/18 12:05 09/08/18 12:04 Sodium Chloride 1,000 ml @ 20 mls/hr Q24H IV 08/09/18 12:04 09/08/18 12:03 08/12/18 12:52 Vitamin B Complex/ Vit C/Folic Acid (Nephrovite) 1 tab DAILY GT 08/10/18 09:00 09/03/18 08:59 08/12/18 09:50 Srini Sam M.D. Aug 12, 2018 16:35
[2018-08-12] MEDS: cefTRIAXone 2 GM in D5W 55 ML IVPB SCH (18:00)
--- NOTE | 2018-08-12 18:20 | NUR ---
NURSE NOTES: Patient discharged to SNF, [facility] per Dr. Arrington. Report given to Cami. Patient's ID band removed, placed in shredder. youth nutritional monitor removed, returned to air sampling and monitoring. No belonging. Patient accompanied by ambulance personnels in a stable condition.
[2018-08-12 18:26] VITALS: BP 121/69
[2018-08-12] MEDS ORDERED: Tubing IV Secondary IV ONE (19:03)
[2018-08-12] MEDS ORDERED: Sterile Water Irrig 1000ml IRRIG ONE (19:03)
--- NOTE | 2018-08-12 23:00 | Discharge Summary ---
DATE OF ADMISSION: 08/02/2018 Date of Discharge: 08/12/2018 HOSPITAL COURSE: This is an 88-year-old male brought in by EMS for altered mental status and high fever from [facility]. The patient was found to be in acute respiratory distress with acute respiratory failure and was intubated in the emergency room and was transferred to the intensive care unit for further treatment of aspiration pneumonia and sepsis. The patient was seen by Pulmonology, Cardiology, and Infectious Diseases. He was on intravenous antibiotic for pneumonia and sepsis as well as development of left arm cellulitis. The patient responded to the intravenous antibiotic and his respiration improved and was extubated and was transferred out of the intensive care unit. Given history of previous gastrointestinal bleed and thrombocytopenia, anticoagulation was held because of that. The patient will be transferred today at [facility] for the rest of his antibiotic treatment, which was up to 08/20/2018. DISCHARGE DIAGNOSES: Include: 1. Left lower lobe pneumonia. 2. Left arm cellulitis. 3. Sepsis. 4. Acute respiratory failure. 5. Metabolic encephalopathy. 6. Right renal mass. 7. Chronic kidney disease, improved. 8. Chronic atrial fibrillation. 9. Parkinson's dementia. 10. History of left leg popliteal thrombosis. 11. History of CVA with one-sided hemiplegia and depression. 12. Neuropathy. 13. Hyperlipidemia. DISCHARGE MEDICATIONS: Include: 1. Linezolid, Zyvox 600 mg q.12 hours for 8 more days. 2. Prevacid 30 mg through G-tube daily. 3. Heparin 5000 units q.12 hours. 4. Vitamin B complex. 5. Folic acid one tab through G-tube daily. 6. Atorvastatin 20 mg through G-tube at bedtime. 7. Gabapentin 100 mg through G-tube at bedtime. 8. Ceftriaxone 2 gram q. 24 hours IV until 08/20/2018 eight more days. 9. Sinemet one tab 25/100 three times a day through G-tube. 10. Cardizem 60 mg every 6 hours through G-tube. 11. Acetaminophen 650 mg every 4 hours through G-tube p.r.n. 12. Albuterol ipratropium q.6 h inhalation p.r.n. 13. Lorazepam 1 mg q.4 hours p.r.n. 14. Zofran 4 mg every 6 hours p.r.n. DISPOSITION: The patient will be discharged back to [facility] and will follow the patient there. Shelby Arrington M.D. DR: Tobias JOB#: [id number] CC: CINDY
== END 2018-08-12 19:04 | DRG 870 ==
LOC: EDBD 06:04 → EDBEDREQ 06:25 → EMR 06:29 → ICU 06:54 → EDBEDREQ 07:02 → EDBEDREQSVC 07:25 → EDBEDREQ 10:34 → 2W 08-07 12:45 → 2E 08-09 11:47
PROC: 0BH17EZ Insertion of Endotracheal Airway into Trachea, Via Natural or Artificial Opening (ICD-10-PCS; principal; 2018-08-02)
PROC: 5A1955Z Respiratory Ventilation, Greater than 96 Consecutive Hours (ICD-10-PCS; principal; 2018-08-02)
PROC: 02HV33Z Insertion of Infusion Device into Superior Vena Cava, Percutaneous Approach (ICD-10-PCS; 2018-08-12)
PROC: B518ZZA Fluoroscopy of Superior Vena Cava, Guidance (ICD-10-PCS; 2018-08-12)
DX: A41.9 Sepsis, unspecified organism (principal); J69.0 Pneumonitis due to inhalation of food and vomit; J96.02 Acute respiratory failure with hypercapnia; G93.41 Metabolic encephalopathy; I82.532 Chronic embolism and thrombosis of left popliteal vein; I69.959 Hemiplegia and hemiparesis following unspecified cerebrovascular disease affecting unspecified side; N17.9 Acute kidney failure, unspecified; L03.114 Cellulitis of left upper limb; I48.2 Chronic atrial fibrillation; G20 Parkinson's disease; F02.80 Dementia in other diseases classified elsewhere, unspecified severity, without behavioral disturbance, psychotic disturbance, mood disturbance, and anxiety; Z79.01 Long term (current) use of anticoagulants; F32.9 Major depressive disorder, single episode, unspecified; G62.9 Polyneuropathy, unspecified; E78.5 Hyperlipidemia, unspecified; N18.9 Chronic kidney disease, unspecified; R13.10 Dysphagia, unspecified; M25.552 Pain in left hip; E87.6 Hypokalemia; N28.89 Other specified disorders of kidney and ureter; R62.7 Adult failure to thrive; Z68.37 Body mass index [BMI] 37.0-37.9, adult; Z66 Do not resuscitate; L89.329 Pressure ulcer of left buttock, unspecified stage; L89.319 Pressure ulcer of right buttock, unspecified stage
CPT/HCPCS: 31500; 36415; 36569; 36600; 71045; 76770; 76937; 80048; 80053; 80202; 81003; 82550; 82553; 82803; 83605; 83690; 83735; 83880; 84100; 84484; 85007; 85025; 85610; 85651; 85730; 86140; 86710; 87040; 87070; 87086; 87181; 87205; 93005; 93306; 93970; 93971; 94002; 94003; 94640; 94760; 96361; 96365; 96368; 99291; J7620; J8499